=== PATIENT | male | born 1970 | race Caucasian/White ===

== ENCOUNTER 2024-04-09 14:44 | Emergency (ER) | payer OTHER, SELFPAY ==
[2024-04-09] VITALS (58 sets, daily range): BP systolic 125–219; BP diastolic 62–159; PULSE 62–148; RESP 16–20; TEMP 36.6; O2SAT 87–100; BMI 35.0
--- NOTE | 2024-04-09 15:25 | ED.CHESTPAIN ---
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 I do ask when this chest pain started and he says that it is intermittent and has been present for 2 years. He notes that seems a little worse today and shows need to be this left anterior chest. It does radiate into his neck. He is not excessively short of breath or nauseated. His blood pressure is elevated he states that often gets even higher. Currently he is on aspirin atorvastatin Plavix Related Data Home Medications ?Medication ?Instructions ?Recorded ?Confirmed albuterol sulfate 90 mcg/actuation 1 inh inhalation Q4-6H PRN 04/09/24 04/09/24 breath activated powder inhaler aripiprazole 10 mg tablet (Abilify) 10 mg PO DAILY 04/09/24 04/09/24 aspirin 81 mg capsule 81 mg PO DAILY 04/09/24 04/09/24 atorvastatin 80 mg tablet 80 mg PO DAILY 04/09/24 04/09/24 calcium carbonate PO 04/09/24 clopidogrel 75 mg tablet (Plavix) 75 mg PO DAILY 04/09/24 04/09/24 escitalopram oxalate 20 mg tablet 20 mg PO DAILY 04/09/24 04/09/24 (Lexapro) ezetimibe 10 mg tablet (Zetia) 10 mg PO DAILY 04/09/24 04/09/24 losartan 50 mg tablet (Cozaar) 50 mg PO DAILY 04/09/24 04/09/24 quetiapine 50 mg tablet (Seroquel) 50 mg PO ONCE HS 04/09/24 04/09/24 ranolazine 500 mg tablet,extended 500 mg PO BID 04/09/24 04/09/24 release,12 hr spironolactone 25 mg tablet 25 mg PO QDAY 04/09/24 04/09/24 Allergies Allergy/AdvReac Type Severity Reaction Status Date / Time No Known Drug Allergies Allergy Verified 04/09/24 14:58 Review of Systems Status of ROS Reports: 10 or more systems reviewed and unremarkable except as noted in History and below Const Denies: fever, chills or fatigue Eyes Denies: change in vision or blurry vision ENMT Reports: neck pain; Denies: throat pain, throat swelling, difficulty swallowing or nasal congestion Cardio Reports: chest pain; Denies: palpitations, edema, swelling of feet/ankles, lightheadedness or shortness of breath with exertion Resp Denies: shortness of breath or cough GI Reports: nausea; Denies: abdominal pain, vomiting or difficulty swallowing Musculo Reports: neck pain Integ/Breast Denies: rash Endo Denies: fatigue Allergy/Immuno Denies: throat swelling PFSH PFSH Social History Smoking Status: Never smoker Do you use any of these nicotine containing products: None How often do you have a drink containing alcohol: never How often do you have six or more drinks on one occasion: Never AUDIT-C Alcohol total score: 0 Non-prescribed substance use: denies use service: No Exam Narrative Exam Narrative: Johnny is alert and oriented. He is complaining of chest pain but does not appear to be in any acute distress and is very talkative and interactive. Her is EOM is full head is atraumatic. Neck is supple. Heart with a regular rate and rhythm. Lungs are with decreased breath sounds in the bases but no wheezing or crackles noted. Abdomen is soft nontender. He has a well-healed vertical incision over his sternum. Tattoos throughout body. Abdomen is without pulsating mass or tenderness. Lower extremities show no evidence of edema and there is no calf tenderness. Const Vital Signs, click to edit/add: Vital Signs - 24 hr 04/09/24 14:55 04/09/24 14:58 04/09/24 15:01 Temperature 97.9 F Pulse Rate 75 78 Pulse Rate [Pulse Oximeter] 100 Respiratory Rate 18 Blood Pressure 173/159 H Blood Pressure [Left Upper Arm] 173/159 H Pulse Oximetry 100 100 100 Oxygen Delivery Method Room Air 04/09/24 15:15 04/09/24 15:18 04/09/24 15:30 Temperature Pulse Rate 71 67 72 Pulse Rate [Pulse Oximeter] Respiratory Rate Blood Pressure 163/138 H Blood Pressure [Left Upper Arm] Pulse Oximetry 96 100 100 Oxygen Delivery Method 04/09/24 15:32 04/09/24 15:32 04/09/24 15:45 Temperature Pulse Rate 82 Pulse Rate [Pulse Oximeter] Respiratory Rate Blood Pressure 185/91 H 131/114 H Blood Pressure [Left Upper Arm] Pulse Oximetry 97 98 Oxygen Delivery Method 04/09/24 16:02 04/09/24 16:17 04/09/24 16:22 Temperature Pulse Rate 70 71 Pulse Rate [Pulse Oximeter] Respiratory Rate Blood Pressure 172/100 H 176/146 H Blood Pressure [Left Upper Arm] Pulse Oximetry 98 89 Oxygen Delivery Method 04/09/24 16:27 04/09/24 16:30 04/09/24 16:32 Temperature Pulse Rate 75 70 148 H Pulse Rate [Pulse Oximeter] Respiratory Rate Blood Pressure 169/105 H 159/90 H Blood Pressure [Left Upper Arm] Pulse Oximetry 93 97 92 Oxygen Delivery Method 04/09/24 16:45 04/09/24 17:00 04/09/24 17:02 Temperature Pulse Rate 72 82 82 Pulse Rate [Pulse Oximeter] Respiratory Rate Blood Pressure 172/155 H Blood Pressure [Left Upper Arm] Pulse Oximetry 99 91 98 Oxygen Delivery Method 04/09/24 17:15 04/09/24 17:30 04/09/24 17:31 Temperature Pulse Rate 73 66 65 Pulse Rate [Pulse Oximeter] Respiratory Rate Blood Pressure 184/130 H Blood Pressure [Left Upper Arm] Pulse Oximetry 96 97 91 Oxygen Delivery Method 04/09/24 17:32 04/09/24 17:48 04/09/24 17:52 Temperature Pulse Rate 63 70 Pulse Rate [Pulse Oximeter] Respiratory Rate Blood Pressure 187/100 H 199/123 H Blood Pressure [Left Upper Arm] Pulse Oximetry 99 96 Oxygen Delivery Method 04/09/24 18:00 04/09/24 18:02 04/09/24 18:03 Temperature Pulse Rate 73 76 74 Pulse Rate [Pulse Oximeter] Respiratory Rate Blood Pressure 197/142 H Blood Pressure [Left Upper Arm] Pulse Oximetry 92 93 98 Oxygen Delivery Method 04/09/24 18:16 04/09/24 18:30 04/09/24 18:33 Temperature Pulse Rate 66 66 62 Pulse Rate [Pulse Oximeter] Respiratory Rate Blood Pressure 219/143 H Blood Pressure [Left Upper Arm] Pulse Oximetry 98 99 100 Oxygen Delivery Method 04/09/24 18:45 04/09/24 19:00 04/09/24 19:03 Temperature Pulse Rate 65 63 70 Pulse Rate [Pulse Oximeter] Respiratory Rate Blood Pressure 183/125 H Blood Pressure [Left Upper Arm] Pulse Oximetry 100 98 94 Oxygen Delivery Method 04/09/24 19:04 04/09/24 19:15 04/09/24 19:17 Temperature Pulse Rate 72 69 Pulse Rate [Pulse Oximeter] Respiratory Rate Blood Pressure 168/127 H Blood Pressure [Left Upper Arm] Pulse Oximetry 95 95 94 Oxygen Delivery Method 04/09/24 19:30 04/09/24 19:32 04/09/24 19:34 Temperature Pulse Rate 71 77 Pulse Rate [Pulse Oximeter] Respiratory Rate Blood Pressure 180/135 H 148/95 H Blood Pressure [Left Upper Arm] Pulse Oximetry 94 93 Oxygen Delivery Method 04/09/24 19:45 04/09/24 19:46 04/09/24 19:58 Temperature Pulse Rate 80 77 83 Pulse Rate [Pulse Oximeter] Respiratory Rate Blood Pressure 125/62 142/93 H Blood Pressure [Left Upper Arm] Pulse Oximetry 87 L 91 96 Oxygen Delivery Method 04/09/24 20:00 04/09/24 20:02 04/09/24 20:03 Temperature Pulse Rate 74 82 Pulse Rate [Pulse Oximeter] Respiratory Rate Blood Pressure 137/119 H Blood Pressure [Left Upper Arm] Pulse Oximetry 93 97 97 Oxygen Delivery Method 04/09/24 20:15 04/09/24 20:17 04/09/24 20:20 Temperature Pulse Rate 67 73 72 Pulse Rate [Pulse Oximeter] Respiratory Rate 16 Blood Pressure 132/71 135/110 H Blood Pressure [Left Upper Arm] Pulse Oximetry 98 96 92 Oxygen Delivery Method Room Air 04/09/24 20:30 04/09/24 20:31 04/09/24 20:45 Temperature Pulse Rate 78 73 71 Pulse Rate [Pulse Oximeter] Respiratory Rate 20 Blood Pressure 136/82 Blood Pressure [Left Upper Arm] Pulse Oximetry 97 96 97 Oxygen Delivery Method Room Air 04/09/24 20:48 04/09/24 20:52 04/09/24 21:00 Temperature Pulse Rate 76 73 80 Pulse Rate [Pulse Oximeter] Respiratory Rate Blood Pressure 146/123 H 149/87 H Blood Pressure [Left Upper Arm] Pulse Oximetry 91 97 97 Oxygen Delivery Method 04/09/24 21:02 04/09/24 21:15 04/09/24 21:17 Temperature Pulse Rate 73 71 70 Pulse Rate [Pulse Oximeter] Respiratory Rate 20 Blood Pressure 146/90 H 157/101 H Blood Pressure [Left Upper Arm] Pulse Oximetry 97 98 97 Oxygen Delivery Method Room Air 04/09/24 21:31 04/09/24 21:32 Temperature Pulse Rate 75 74 Pulse Rate [Pulse Oximeter] Respiratory Rate Blood Pressure 179/100 H Blood Pressure [Left Upper Arm] Pulse Oximetry 95 97 Oxygen Delivery Method Documenting provider has reviewed patient's vital signs: yes Course Vital Signs Vital signs: Initial Vital Signs Temperature 97.9 F 04/09/24 14:55 Temperature Source Temporal Artery Scan 04/09/24 14:55 Pulse Rate 100 04/09/24 14:55 Respiratory Rate 18 04/09/24 14:55 Blood Pressure 173/159 H 04/09/24 14:55 Blood Pressure Mean 163 H 04/09/24 14:55 Blood Pressure Position Sitting 04/09/24 14:55 Pulse Oximetry 100 04/09/24 14:55 Oxygen Delivery Method Room Air 04/09/24 14:55 Vital Signs Temperature 97.9 F 04/09/24 14:55 Pulse Rate 100 04/09/24 14:55 Respiratory Rate 18 04/09/24 14:55 Blood Pressure 173/159 H 04/09/24 14:55 Pulse Oximetry 100 04/09/24 14:55 Oxygen Delivery Method Room Air 04/09/24 14:55 Temperature 97.9 F 04/09/24 14:55 Pulse Rate 74 04/09/24 21:32 Respiratory Rate 20 04/09/24 21:17 Blood Pressure 179/100 H 04/09/24 21:32 Pulse Oximetry 97 04/09/24 21:32 Oxygen Delivery Method Room Air 04/09/24 21:17 Medications Administered Medications: Discontinued Medications Generic Name Dose Route Start Last Admin Trade Name Freq PRN Reason Stop Dose Admin Acetaminophen 1,000 mg 04/09/24 17:08 04/09/24 17:25 Acetaminophen 500 Mg Tablet PO 04/09/24 17:09 1,000 mg ONCE ONE Administration Amlodipine Besylate 5 mg 04/09/24 21:30 04/09/24 21:42 Amlodipine 5 Mg Tablet PO 04/09/24 21:31 5 mg ONCE ONE Administration Aspirin 324 mg 04/09/24 22:41 04/09/24 22:45 Aspirin 81 Mg Tablet Ec PO 04/09/24 22:42 324 mg ONCE ONE Administration Carvedilol 12.5 mg 04/09/24 20:54 04/09/24 21:20 Carvedilol 25 Mg Tablet PO 04/09/24 20:55 12.5 mg ONCE ONE Administration Nicardipine/Sodium Chloride 10 mg in 100 mls @ 50 mls/hr 04/09/24 18:04 04/09/24 19:45 Cardene Iv IV 0 mls/hr DIRECTED CAROLANN Infusion Protocol Metoprolol Tartrate 2.5 mg 04/09/24 17:08 04/09/24 17:25 Metoprolol Tartrate 1 Mg/Ml Inj IVP 04/09/24 17:09 2.5 mg ONCE ONE Administration Nitroglycerin 0.4 mg 04/09/24 15:32 04/09/24 16:21 Nitroglycerin 0.4 Mg Tab.Subl SUBLINGUAL 04/09/24 15:33 0.4 mg ONCE ONE Administration MDM - Chest Pain MDM Narrative Medical decision making narrative: 1. Chest pain-patient arrived with chest pain that he says has been intermittent ever since he had his bypass 2 years ago. Today we initially tried nitro to bring blood pressures down. It did only modestly and pain was only relieved to a 9/10. Patient was then given Lopressor 2.5 mg and while pulse was brought down to the 60s only modest improvement was noted in blood pressure. Patient had no visual changes abdominal pain or vomiting. He stated that his doctors had told him in the past that his chest pain is from elevated blood pressure. I had the pleasure of speaking with a financial reporting accountant from [facility] in [place]. He was able to tell me that Johnny had a negative nuclear stress test in February. Johnny did not remember this. At this time did agree with my plan to keep Johnny overnight with echocardiogram in the morning and to control blood pressures. We did start nicardipine drip and the blood pressures were brought down and ultimately we turned the nicardipine off because his blood pressure dropped to 120 systolic. During this time 2 sets of negative cardiac enzymes were resulted and EKG did not show any acute ST or T-wave changes. Because of the continued pain we did a CT of the chest which was negative for any aortic pathology PE or pneumonia. Even with blood pressure lower patient did complain of chest pain although the rating of the pain did not seem congruent with his activity. Frequently he was walking around his room, was very pleasant with staff and interactive. We did allow him to eat. Drug screen was negative. I did a final troponin 6 hours after patient arrival and this again was negative. Patient had requested morphine or Reddick from the nursing staff but I am declining this at this time. We do not know what we are treating and patient does not have any injury, abnormality on CT, bump in his troponin, or abnormal EKG. I spoke with Cardiology from [facility] in regards to this patient requesting appropriate blood control management. They do suggest the addition of amlodipine 5 mg daily. 1st dose is given here in the ED. I do talk to the patient about this medication. I have written a prescription for daily amlodipine but patient is certain that he already has this medication in his vehicle. The Cardiology at [facility] also agrees patient should stay overnight with echocardiogram and continue monitoring. However Johnny is adamant that he needs to go. He would not be able to stay past the data center solutions architect hours. At this point we have already had 3 cardiac enzymes that are negative, reassuring EKG. 2. Hypertension-well blood pressure improved with the use of nicardipine it did start increasing again during his stay. It should be noted that there are many abnormal blood pressure readings while he was here. Multiple times I was notified of blood pressure readings that were high and when we had patient lie down with the correct blood pressure cuff and positioning the blood pressures were reassuring. Prior to discharge blood pressure did increase to 180/100. I again asked the patient to stay. He did receive full aspirin here in the emergency room during the evening. He also received his regular dose of carvedilol 12.5 mg p.o. as well as the additional amlodipine. 3. Tobacco use-advised to abstain. 4. Lung nodule-advised to follow-up with outpatient CT in 6 months. 4. Disposition-at this time patient has signed AMA. He does appear to be able to make his own decisions, is not under the influence. He does appear to understand that departing could results in , heart attack, stroke. I advised him not to drive given this situation and this discussion is held in front of a nurse who has witnessed. He is advised to can continue all of his current medications plus the addition of amlodipine daily. He is advised to seek medical attention for worsening symptoms. Lab Data Attestation: I reviewed the patient's lab results. Labs: Lab Results 04/09/24 04/09/24 04/09/24 Range/Units 15:32 16:17 17:50 WBC 9.04 (4.50-11.00) K/uL RBC 5.18 (4.30-5.90) m/uL Hgb 14.3 (13.5-17.5) gm/dL Hct 44.0 (37.0-53.0) % MCV 85 (80-100) fL MCH 28 (26-34) pg MCHC 33 (32-36) gm/dL RDW Coeff of Juliet 13.1 (11.5-15.5) % Plt Count 269 (140-440) K/uL Neut % (Auto) 60.8 (42.0-72.0) % Lymph % (Auto) 26.1 (20-44) % [place] % (Auto) 9.1 (0.0-11.0) % Eos % (Auto) 3.1 (0.0-7.0) % Baso % (Auto) 0.3 (0.0-3.0) % Neut # (Auto) 5.50 (1.7-7.0) K/uL Lymph # (Auto) 2.36 (0.90-2.90) K/uL [place] # (Auto) 0.80 (0.00-0.90) K/UL Eos # (Auto) 0.28 (0.00-0.50) K/uL Baso # (Auto) 0.03 (0.00-0.30) K/uL Abs Immat Gran (auto) 0.05 (0.00-0.30) K/uL Imm/Tot Granulo (auto) 0.6 % Sodium 141 (135-149) mmol/L Potassium 3.5 L (3.6-5.1) mmol/L Chloride 109 (96-114) mmol/L Carbon Dioxide 27 (20-32) mmol/L Anion Gap 5 L (7-15) mEq/L BUN 14 (7-30) mg/dL Creatinine 0.7 (0.5-1.5) mg/dL Estimated Creat Clear 123.12 Estimated GFR 109 ml/min Glucose 91 (60-115) mg/dL Calcium 9.1 (8.4-10.6) mg/dL Total Bilirubin 0.3 (0.1-1.5) mg/dL AST 24 (12-35) U/L ALT 38 (4-50) U/L Alkaline Phosphatase 85 (40-150) U/L C-Reactive Protein 0.7 (0.5-1.0) mg/dL Total Protein 7.4 (6.0-8.3) g/dL Albumin 4.1 (3.3-5.0) g/dL Urine Color Yellow (Yellow) Urine Appearance Clear (Clear) Urine pH 5.5 (5.0-8.5) Ur Specific [place] >= 1.030 (1.000-1.030) Urine Protein Negative (Negative) Urine Glucose (UA) Negative (Negative) Urine Ketones Negative (Negative) Urine Blood Negative (Negative) Urine Nitrite Negative (Negative) Urine Bilirubin Negative (Negative) Urine Urobilinogen 0.2 (0.2-1.0) Ur Leukocyte Esterase Negative (Negative) Urine RBC 0-2 (0-2) Urine WBC 0-2 (0-5) Ur Squamous Epith Cells None (None-Few) Urine Bacteria None (None) Urine Opiates Screen Negative (Negative) Ur Oxycodone Screen Negative (Negative) Urine Methadone Screen Negative (Negative) Ur Barbiturates Screen Negative (Negative) U Tricyclic Antidepress POSITIVE A (Negative) Ur Phencyclidine Scrn Negative (Negative) Ur Amphetamines Screen Negative (Negative) U Methamphetamines Scrn Negative (Negative) U Benzodiazepines Scrn Negative (Negative) Urine Cocaine Screen Negative (Negative) U Marijuana (THC) Screen Negative (Negative) Ur Drug Screen Comment See Note POC Troponin I 0.01 (0.01-0.04) ng/ml 04/09/24 04/09/24 Range/Units 19:15 21:30 WBC (4.50-11.00) K/uL RBC (4.30-5.90) m/uL Hgb (13.5-17.5) gm/dL Hct (37.0-53.0) % MCV (80-100) fL MCH (26-34) pg MCHC (32-36) gm/dL RDW Coeff of Juliet (11.5-15.5) % Plt Count (140-440) K/uL Neut % (Auto) (42.0-72.0) % Lymph % (Auto) (20-44) % [place] % (Auto) (0.0-11.0) % Eos % (Auto) (0.0-7.0) % Baso % (Auto) (0.0-3.0) % Neut # (Auto) (1.7-7.0) K/uL Lymph # (Auto) (0.90-2.90) K/uL [place] # (Auto) (0.00-0.90) K/UL Eos # (Auto) (0.00-0.50) K/uL Baso # (Auto) (0.00-0.30) K/uL Abs Immat Gran (auto) (0.00-0.30) K/uL Imm/Tot Granulo (auto) % Sodium (135-149) mmol/L Potassium (3.6-5.1) mmol/L Chloride (96-114) mmol/L Carbon Dioxide (20-32) mmol/L Anion Gap (7-15) mEq/L BUN (7-30) mg/dL Creatinine (0.5-1.5) mg/dL Estimated Creat Clear Estimated GFR ml/min Glucose (60-115) mg/dL Calcium (8.4-10.6) mg/dL Total Bilirubin (0.1-1.5) mg/dL AST (12-35) U/L ALT (4-50) U/L Alkaline Phosphatase (40-150) U/L C-Reactive Protein (0.5-1.0) mg/dL Total Protein (6.0-8.3) g/dL Albumin (3.3-5.0) g/dL Urine Color (Yellow) Urine Appearance (Clear) Urine pH (5.0-8.5) Ur Specific [place] (1.000-1.030) Urine Protein (Negative) Urine Glucose (UA) (Negative) Urine Ketones (Negative) Urine Blood (Negative) Urine Nitrite (Negative) Urine Bilirubin (Negative) Urine Urobilinogen (0.2-1.0) Ur Leukocyte Esterase (Negative) Urine RBC (0-2) Urine WBC (0-5) Ur Squamous Epith Cells (None-Few) Urine Bacteria (None) Urine Opiates Screen (Negative) Ur Oxycodone Screen (Negative) Urine Methadone Screen (Negative) Ur Barbiturates Screen (Negative) U Tricyclic Antidepress (Negative) Ur Phencyclidine Scrn (Negative) Ur Amphetamines Screen (Negative) U Methamphetamines Scrn (Negative) U Benzodiazepines Scrn (Negative) Urine Cocaine Screen (Negative) U Marijuana (THC) Screen (Negative) Ur Drug Screen Comment POC Troponin I 0.00 L 0.00 L (0.01-0.04) ng/ml Imaging Data Chest x-ray: Attestation: I have reviewed the pertinent imaging results. My impression: No evidence of widened mediastinum or infiltrate Radiologist's impression: Cardiovascular and mediastinum: Postop changes to the mediastinum. Lungs and pleural spaces: Incidental calcified granuloma in the right perihilar lung. No sign of infiltrate or mass. No sign of pleural effusion. No pneumothorax. Bones and soft tissues: Spurring at the acromioclavicular joints. IMPRESSION: No acute findings. CT scan - chest: Attestation: I have reviewed the pertinent imaging results. Radiologist's impression: Upper limits of normal intrathoracic lymph nodes are present. No adrenal nodule. No splenomegaly. Vascular calcifications. No calcified gallstones. No pulmonary embolism. 7 millimeter nodule adjacent to the right minor fissure, 5. Postop changes CABG. Calcified nodule incidentally noted within the right upper lobe. Additional noncalcified nodule right lower lobe measures 4.2 millimeters, . Calcified right hilar lymph nodes representing sequela of granulomatous disease. IMPRESSION: No evidence of pulmonary thromboembolism. Right-sided pulmonary nodules measuring up to [address] chest follow-up in 6 months recommended ECG Data Interpretation: EKG 1. By my read shows sinus rhythm with sinus arrhythmia. He does have suggestion of Q-waves noted in V1 V2 that appear to be chronic. I do not note any other ST or T-wave changes QT and KS intervals within normal limits EKG 2. By my read shows sinus rhythm with arrhythmia at a rate of 77. I do not note any changes from previous EKG. Discharge Plan Discharge Clinical Impression: Chest pain Qualifiers: Chest pain type: unspecified Qualified Code(s): R07.9 - Chest pain, unspecified Hypertension Qualifiers: Hypertension type: unspecified Qualified Code(s): I10 - Essential (primary) hypertension Patient Disposition: Left Against Medical Advice Condition: Improved Prescriptions: No Action albuterol sulfate 90 mcg/actuation aerosol powdr breath activated 1 inh inhalation Q4-6H PRN aripiprazole [Abilify] 10 mg tablet 10 mg PO DAILY aspirin 81 mg capsule 81 mg PO DAILY atorvastatin 80 mg tablet 80 mg PO DAILY calcium carbonate [Tums Extra Strength Smoothies] PO clopidogrel [Plavix] 75 mg tablet 75 mg PO DAILY escitalopram oxalate [Lexapro] 20 mg tablet 20 mg PO DAILY ezetimibe [Zetia] 10 mg tablet 10 mg PO DAILY losartan [Cozaar] 50 mg tablet 50 mg PO DAILY quetiapine [Seroquel] 50 mg tablet 50 mg PO ONCE HS Rx Instructions: administer on day 1 of therapy ranolazine 500 mg tablet extended release 12 hr 500 mg PO BID spironolactone 25 mg tablet 25 mg PO QDAY Follow Up/Referrals: Provider,Not a Local [Primary Care Provider] - Stand Alone Forms: [employer] Info Instructions
--- NOTE | 2024-04-09 15:32 | CRLHL7_ITS ---
For Patients: As a result of the Cures Act, medical imaging exams and procedure reports are released immediately into your electronic medical record. You may view this report before your referring provider. If you have questions, please contact your health care provider. INDICATION: Chest pain TECHNIQUE: Chest 1 view COMPARISON: None FINDINGS: Cardiovascular and mediastinum: Postop changes to the mediastinum. Lungs and pleural spaces: Incidental calcified granuloma in the right perihilar lung. No sign of infiltrate or mass. No sign of pleural effusion. No pneumothorax. Bones and soft tissues: Spurring at the acromioclavicular joints. IMPRESSION: No acute findings. Dictated by Ernesto Goyal MD @ 04/09/2024 4:51:23 PM (Electronically Signed)
--- OUTSIDE RECORDS SUMMARY | 2024-04-09 16:14 | XMS_ITS ---
Author Organization Unknown Address [address], [place] [id number] Phone Care Team Providers [employer] Executive Director Name Role Phone Unavailable [employer] Unavailable MAXIMUS Bajwa MD Attending Unavailable LARA HERNÁNDEZ MD Mr Water Resource Agent Unavailable LEENA ROSADO MD Mr Water Resource Agent Unavailable VORAPUNPISUIT, RATTAPOL DO ER Unava ilable ONI ESPOSITO APN Hospitalist Unavailable NO PCP PRESENT Primary Unavailable Results CMP - Collect Date/Time: 06/2023 06:00 [facility] ID: [id number] [address] [facility] [place], [id number] LOINC: 89850-9 Test Value Unit Reference Range Code Code System Flag GLUCOSE 94 mg/dL L=74 H=106 2339-0 LOINC BUN 16 mg/dL L=9 H=20 6299-2 LOINC CREATININE 0.8 mg/dL L=0.6 H=1.2 2160-0 LOINC SODIUM 137 mEq/L L=137 H=145 2951-2 LOINC POTASSIUM 4.0 mEq/L L=3.5 H=5.1 2823-3 LOINC CHLORIDE 109 mEq/L L=98 H=107 H CO2 25 mEq/L L=22 H=30 2028-9 LOINC BUN/CREAT 20 L=6 H=25 ANION GAP 3 L=5 H=15 L CALCIUM 8.4 mg/dL L=8.4 H=10.2 41648-0 LOINC TOTAL PROTEIN 6.6 g/dL L=6.3 H=8.2 2885-2 LOINC ALBUMIN 3.7 g/dL L=3.5 H=5.0 GLOBULIN 3 g/dL L=2 H=4 A/G RATIO 1.2 L=0.8 H=2.0 SGOT/AST 33 IU/L L=15 H=46 1920-8 LOINC SGPT/ALTV 30 IU/L L=0 H=50 1742-6 LOINC ALKALINE PHOS 80 IU/L L=38 H=126 6768-6 LOINC TOTAL BILI 0.4 mg/dL L=0.2 H=1.3 1975-2 LOINC AGE 52 yrs NON-AA GFR 101 mL/min AFR AMER GFR 122 mL/min OSMOLALITY 285 mOsm/K L=275 H=295 CBC COMPLETE BLOOD COUNT SYS - Collect Date/Time: 08/31/2023 06:00 [facility] ID: [id number] [address], [facility] [place], [id number] LOINC: 74706-3 Test Value Unit Reference Range Code Code System Flag WBC 8.6 K/uL L=3.5 H=10.3 6690-2 LOINC RBC 5.10 M/uL L=4.20 H=6.20 789-8 LOINC HEMOGLOBIN 14.2 g/dL L=13.5 H=17.1 718-7 LOINC HEMATOCRIT 43.1 % L=39.0 H=52.0 4544-3 LOINC MCV 84.5 fL L=80.0 H=100 MCH 27.8 pg L=26.0 H=34.4 785-6 LOINC MCHC 32.9 g/dL L=31.8 H=36.3 786-4 LOINC RDW 12.4 % L=10.8 H=14.9 788-0 LOINC PLATELETS 252 K/uL L=150 H=500 777-3 LOINC MPV 9.3 fL L=8.1 H=12.4 %NEUT 59.3 % L=38.3 H=69.0 770-8 LOINC %LYMPH 25.7 % L=17.5 H=47.9 %MONO 11.1 % L=2.0 H=15.0 5905-5 LOINC %EOS 3.2 % L=0.0 H=5.0 %BASO 0.2 % L=0.0 H=3.0 %IG 0.50 % L=0.00 H=1.00 #NEUT 5.07 K/uL L=1.20 H=5.30 751-8 LOINC #LYMPH 2.20 K/uL L=0.80 H=2.70 731-0 LOINC #MONO 0.95 K/uL L=0.10 H=0.60 742-7 LOINC H #EOS 0.27 K/uL L=0.00 H=0.30 #BASO 0.02 K/uL L=0.00 H=0.10 704-7 LOINC #IG 0.04 L=0.00 H=1.00 MANUAL DIFF NOT INDICATED RBC MORPH NOT INDICATED SMEAR REVIEW NOT INDICATED CMP - Collect Date/Time: 05/2023 03:15 [facility] ID: [id number] [address], [facility], [phone] LOINC: 85083-7 Test Value Unit Reference Range Code Code System Flag GLUCOSE 119 mg/dL L=74 H=106 2339-0 LOINC H BUN 16 mg/dL L=9 H=20 6299-2 LOINC CREATININE 1.0 mg/dL L=0.6 H=1.2 2160-0 LOINC SODIUM 138 mEq/L L=137 H=145 2951-2 LOINC POTASSIUM 4.3 mEq/L L=3.5 H=5.1 2823-3 LOINC CHLORIDE 108 mEq/L L=98 H=107 H CO2 28 mEq/L L=22 H=30 2028-9 LOINC BUN/CREAT 16 L=6 H=25 ANION GAP 2 L=5 H=15 L CALCIUM 8.2 mg/dL L=8.4 H=10.2 92977-9 LOINC L TOTAL PROTEIN 6.2 g/dL L=6.3 H=8.2 2885-2 LOINC L ALBUMIN 3.2 g/dL L=3.5 H=5.0 L GLOBULIN 3 g/dL L=2 H=4 A/G RATIO 1.1 L=0.8 H=2.0 SGOT/AST 30 IU/L L=15 H=46 1920-8 LOINC SGPT/ALTV 31 IU/L L=0 H=50 1742-6 LOINC ALKALINE PHOS 72 IU/L L=38 H=126 6768-6 LOINC TOTAL BILI 0.5 mg/dL L=0.2 H=1.3 1975-2 LOINC AGE 52 yrs NON-AA GFR 78 mL/min AFR AMER GFR 94 mL/min OSMOLALITY 288 mOsm/K L=275 H=295 CBC COMPLETE BLOOD COUNT SYS - Collect Date/Time: 08/30/2023 03:15 [facility] ID: [id number] [address], [facility] [place], [phone] LOINC: 95583-0 Test Value Unit Reference Range Code Code System Flag WBC 9.5 K/uL L=3.5 H=10.3 6690-2 LOINC RBC 4.92 M/uL L=4.20 H=6.20 789-8 LOINC HEMOGLOBIN 13.8 g/dL L=13.5 H=17.1 718-7 LOINC HEMATOCRIT 42.5 % L=39.0 H=52.0 4544-3 LOINC MCV 86.4 fL L=80.0 H=100 MCH 28.0 pg L=26.0 H=34.4 785-6 LOINC MCHC 32.5 g/dL L=31.8 H=36.3 786-4 LOINC RDW 12.8 % L=10.8 H=14.9 788-0 LOINC PLATELETS 248 K/uL L=150 H=500 777-3 LOINC MPV 9.5 fL L=8.1 H=12.4 %NEUT 61.7 % L=38.3 H=69.0 770-8 LOINC %LYMPH 25.9 % L=17.5 H=47.9 %MONO 8.5 % L=2.0 H=15.0 5905-5 LOINC %EOS 3.0 % L=0.0 H=5.0 %BASO 0.5 % L=0.0 H=3.0 %IG 0.40 % L=0.00 H=1.00 #NEUT 5.84 K/uL L=1.20 H=5.30 751-8 LOINC H #LYMPH 2.46 K/uL L=0.80 H=2.70 731-0 LOINC #MONO 0.81 K/uL L=0.10 H=0.60 742-7 LOINC H #EOS 0.28 K/uL L=0.00 H=0.30 #BASO 0.05 K/uL L=0.00 H=0.10 704-7 LOINC #IG 0.04 L=0.00 H=1.00 MANUAL DIFF NOT INDICATED RBC MORPH NOT INDICATED SMEAR REVIEW NOT INDICATED TROPONIN VITROS - Collect Da te/Time: 08/30/2023 03:15 [facility] ID: [id number] [address] [facility] [place], [id number] LOINC: Test Value Unit Reference Range Code Code System Flag TROPONIN VIT < 0.012 ng/mL L=0.012 H=0.034 CBC COMPLETE BLOOD COUNT SYS - Collect Date/Time: 08/29/2023 03:30 [facility] ID: [id number] [address] [facility] , [place], [phone] LOINC: 39041-0 Test Value Unit Reference Range Code Code System Flag WBC 10.2 K/uL L=3.5 H=10.3 6690-2 LOINC RBC 5.74 M/uL L=4.20 H=6.20 789-8 LOINC HEMOGLOBIN 16.0 g/dL L=13.5 H=17.1 718-7 LOINC HEMATOCRIT 48.8 % L=39.0 H=52.0 4544-3 LOINC MCV 85.0 fL L=80.0 H=100 MCH 27.9 pg L=26.0 H=34.4 785-6 LOINC MCHC 32.8 g/dL L=31.8 H=36.3 786-4 LOINC RDW 13.0 % L=10.8 H=14.9 788-0 LOINC PLATELETS 256 K/uL L=150 H=500 777-3 LOINC MPV 10.8 fL L=8.1 H=12.4 %NEUT 54.5 % L=38.3 H=69.0 770-8 LOINC %LYMPH 32.4 % L=17.5 H=47.9 %MONO 9.3 % L=2.0 H=15.0 5905-5 LOINC %EOS 3.0 % L=0.0 H=5.0 %BASO 0.5 % L=0.0 H=3.0 %IG 0.30 % L=0.00 H=1.00 #NEUT 5.58 K/uL L=1.20 H=5.30 751-8 LOINC H #LYMPH 3.31 K/uL L=0.80 H=2.70 731-0 LOINC H #MONO 0.95 K/uL L=0.10 H=0.60 742-7 LOINC H #EOS 0.31 K/uL L=0.00 H=0.30 H #BASO 0.05 K/uL L=0.00 H=0.10 704-7 LOINC #IG 0.03 L=0.00 H=1.00 MANUAL DIFF NOT INDICATED RBC MORPH NOT INDICATED SMEAR REVIEW NOT INDICATED CMP - Collect Date/Time: 04/2023 03:30 [facility] ID: [id number] [address], [place] , [place], [id number] LOINC: 74238-4 Test Value Unit Reference Range Code Code System Flag GLUCOSE 91 mg/dL L=74 H=106 2339-0 LOINC BUN 19 mg/dL L=9 H=20 6299-2 LOINC CREATININE 1.1 mg/dL L=0.6 H=1.2 2160-0 LOINC SODIUM 141 mEq/L L=137 H=145 2951-2 LOINC POTASSIUM 4.0 mEq/L L=3.5 H=5.1 2823-3 LOINC CHLORIDE 107 mEq/L L=98 H=107 CO2 29 mEq/L L=22 H=30 8-9 LOINC BUN/CREAT 17 L=6 H=25 ANION GAP 5 L=5 H=15 CALCIUM 8.6 mg/dL L=8.4 H=10.2 99443-2 LOINC TOTAL PROTEIN 7.9 g/dL L=6.3 H=8.2 2885-2 LOINC ALBUMIN 4.1 g/dL L=3.5 H=5.0 GLOBULIN 4 g/dL L=2 H=4 A/G RATIO 1.0 L=0.8 H=2.0 SGOT/AST 40 IU/L L=15 H=46 1920-8 LOINC SGPT/ALTV 40 IU/L L=0 H=50 1742-6 LOINC ALKALINE PHOS 100 IU/L L=38 H=126 6768-6 LOINC TOTAL BILI 0.7 mg/dL L=0.2 H=1.3 1975-2 LOINC AGE 52 yrs NON-AA GFR 70 mL/min AFR AMER GFR 84 mL/min OSMOLALITY 294 mOsm/K L=275 H=295 TROPONIN VITROS - Collect Da te/Time: 08/29/2023 02:27 [facility] ID: [id number] [address], [place], [place], [id number] LOINC: Test Value Unit Reference Range Code Code System Flag TROPONIN VIT < 0.012 ng/mL L=0.012 H=0.034 TROPONIN VITROS - Collect Da te/Time: 08/28/2023 23:22 [facility] ID: [id number] [address], [place], [place], [id number] LOINC: Test Value Unit Reference Range Code Code System Flag TROPONIN VIT < 0.012 ng/mL L=0.012 H=0.034 RAPID COVID AG - Collect Reed e/Time: 08/28/2023 18:09 [facility] ID: [id number] [address], [place], [place], [id number] LOINC: 18480-3 Test Value Unit Reference Range Code Code System Flag SARS ANTIGEN NEGATIVE 67262-3 LOINC INFLUENZA A/B - Collect Date /Time: 08/28/2023 18:09 [facility] ID: [id number] [address], [place], [place], [id number] LOINC: Test Value Unit Reference Range Code Code System Flag INFLUENZA A NEGATIVE NORMAL: NEGATIVE INFLUENZA B NEGATIVE NORMAL: NEGATIVE CBC COMPLETE BLOOD COUNT SYS - Collect Date/Time: 08/28/2023 17:55 [facility] ID: [id number] [address], [place], [place], [id number] LOINC: 52187-6 Test Value Unit Reference Range Code Code System Flag WBC 9.7 K/uL L=3.5 H=10.3 6690-2 LOINC RBC 5.67 M/uL L=4.20 H=6.20 789-8 LOINC HEMOGLOBIN 15.9 g/dL L=13.5 H=17.1 718-7 LOINC HEMATOCRIT 47.4 % L=39.0 H=52.0 4544-3 LOINC MCV 83.6 fL L=80.0 H=100 MCH 28.0 pg L=26.0 H=34.4 785-6 LOINC MCHC 33.5 g/dL L=31.8 H=36.3 786-4 LOINC RDW 12.7 % L=10.8 H=14.9 788-0 LOINC PLATELETS 282 K/uL L=150 H=500 777-3 LOINC MPV 9.2 fL L=8.1 H=12.4 %NEUT 64.0 % L=38.3 H=69.0 770-8 LOINC %LYMPH 23.5 % L=17.5 H=47.9 %MONO 9.3 % L=2.0 H=15.0 5905-5 LOINC %EOS 2.4 % L=0.0 H=5.0 %BASO 0.4 % L=0.0 H=3.0 %IG 0.40 % L=0.00 H=1.00 #NEUT 6.18 K/uL L=1.20 H=5.30 751-8 LOINC H #LYMPH 2.27 K/uL L=0.80 H=2.70 731-0 LOINC #MONO 0.90 K/uL L=0.10 H=0.60 742-7 LOINC H #EOS 0.23 K/uL L=0.00 H=0.30 #BASO 0.04 K/uL L=0.00 H=0.10 704-7 LOINC #IG 0.04 L=0.00 H=1.00 MANUAL DIFF NOT INDICATED RBC MORPH NOT INDICATED SMEAR REVIEW NOT INDICATED MAGNESIUM - Collect Date/Chris e: 08/28/2023 17:55 [facility] ID: [id number] [address], [place], [place], [id number] LOINC: 63493-8 Test Value Unit Reference Range Code Code System Flag MAGNESIUM 2.2 mg/dL L=1.6 H=2.3 70690-6 LOINC TROPONIN VITROS - Collect Da te/Time: 08/28/2023 17:55 [facility] ID: [id number] [address], [place], [place], [id number] LOINC: Test Value Unit Reference Range Code Code System Flag TROPONIN VIT < 0.012 ng/mL L=0.012 H=0.034 D DIMER - Collect Date/Time: 08/28/2023 17:55 [facility] ID: [id number] [address], [place], [place], [id number] LOINC: Test Value Unit Reference Range Code Code System Flag D-DIMER QUANT 465 FEU ng/mL L=0 H=500 BNP B TYPE NATRIURETIC PEPTI DE - Collect Date/Time: 08/28/2023 17:55 [facility] ID: [id number] [address], [place], [place], [id number] LOINC: 10214-7 Test Value Unit Reference Range Code Code System Flag NT-PRO BNP 104 L=0 H=301 PTT PARTIAL THROMBOPLASTIN T ESTEPHANIE - Collect Date/Time: 08/28/2023 17:55 [facility] ID: [id number] [address], [place], [place], [address] LOINC: 04469-3 Test Value Unit Reference Range Code Code System Flag PTT 70.000 Secs L=25.100 H=36.500 3173-2 LOINC H PT PROTHROMBIN TIME INR - Co llect Date/Time: 08/28/2023 17:55 [facility] ID: [id number] [address], [place], [place], [address] LOINC: Test Value Unit Reference Range Code Code System Flag PT 12.200 secs L=9.400 H=12.500 5902-2 LOINC INR 1.04 L=0.00 H=3.50 09906-4 LOINC LIPASE - Collect Date/Time: 08/28/2023 17:55 [facility] ID: [id number] [address], [place], [place], [address] LOINC: 3040-3 Test Value Unit Reference Range Code Code System Flag LIPASE 70 IU/L L=23 H=300 3040-3 LOINC CMP - Collect Date/Time: 03/2023 17:55 [facility] ID: [id number] [address], [place], [place], [address] LOINC: 26437-2 Test Value Unit Reference Range Code Code System Flag GLUCOSE 116 mg/dL L=74 H=106 2339-0 LOINC H BUN 16 mg/dL L=9 H=20 6299-2 LOINC CREATININE 1.0 mg/dL L=0.6 H=1.2 2160-0 LOINC SODIUM 141 mEq/L L=137 H=145 2951-2 LOINC POTASSIUM 4.0 mEq/L L=3.5 H=5.1 2823-3 LOINC CHLORIDE 110 mEq/L L=98 H=107 H CO2 26 mEq/L L=22 H=30 8-9 LOINC BUN/CREAT 16 L=6 H=25 ANION GAP 5 L=5 H=15 CALCIUM 9.0 mg/dL L=8.4 H=10.2 21554-7 LOINC TOTAL PROTEIN 7.8 g/dL L=6.3 H=8.2 2885-2 LOINC ALBUMIN 4.1 g/dL L=3.5 H=5.0 GLOBULIN 4 g/dL L=2 H=4 A/G RATIO 1.0 L=0.8 H=2.0 SGOT/AST 40 IU/L L=15 H=46 1920-8 LOINC SGPT/ALTV 39 IU/L L=0 H=50 1742-6 LOINC ALKALINE PHOS 90 IU/L L=38 H=126 6768-6 LOINC TOTAL BILI 0.6 mg/dL L=0.2 H=1.3 1974- LOINC AGE 52 yrs NON-AA GFR 78 mL/min AFR AMER GFR 94 mL/min OSMOLALITY 294 mOsm/K L=275 H=295 CT BRAIN WO CONTRAST - Compl eted: 08/28/2023 18:24 LOINC: \TM00\\12PI\\DRAo\\BM09\ \MRLo\ [facility] [address] [place] [address] ---------NAME--------- NUMBER SEX AGE ADMIT DISC. XRAY# F/C TYPE HERNANDEZ ALEXANDER [id number] M 52 08/28/23 [id number] E/R DATE OF : 1970 M/R# [id number] PH#: [phone] RM TRIAG \MRHx\ LOCATION: TRANSCRIBED: 08/28/23 18:35 CT BRAIN WO CONTRAST [id number] COMPLETED:08/28/23 18:24 000 83402 {REASON FOR PROCEDURE: Dizziness PHYSICIAN: CEM RADIOLOGY REPORT EXAM DESCRIPTION: CT BRAIN WO CONTRAST CLINICAL HISTORY: 52 years Male Dizziness COMPARISON: None Technique: Contiguous axial images of the brain were obtained without the administration of intravenous contrast.This exam was performed according to our departmental dose-optimization program which includes use of Automated Exposure Control, adjustment of the mA and/or kV according to patient size and/or use of iterative reconstruction technique. DLP: 778 mGy*cm FINDINGS: Brain: No acute intracranial hemorrhage. No extra-axial collection. No mass effect or herniation. Mild prominence of the sulci and cisterns. Confluent periventricular and subcortical white matter hypodensity is noted. Vascular calcifications. Ventricles: Within normal limits in size. Globes and orbits: No acute abnormality. Bones: No acute osseous finding Paranasal sinuses: Paranasal sinuses are clear. Mastoid air cells: Well pneumatized. Soft tissues: Within normal limits IMPRESSION: No acute intracranial hemorrhage, hydrocephalus or herniation. Cerebral volume loss and chronic small vessel ischemic changes. Consider MRI brain for further evaluation. Electronically signed by: Cuco Marie DO 08/28/2023 06:35 PM CDT Electronically Signed By: DCTNAME, RADCRED Date/Time: SIGNDATE CTA HEAD/BRAIN - Completed: 08/30/2023 13:23 LOINC: \TM00\\12PI\\DRAo\\BM09\ \MRLo\ [facility] [address] [place] [address] ---------NAME--------- NUMBER SEX AGE ADMIT DISC. XRAY# F/C TYPE DECOOK CATHERINE [id number] M 52 08/28/23 [id number] O/P DATE OF : 1970 M/R# [id number] #: [phone] 315 \MRHx\ LOCATION: TRANSCRIBED: 08/30/23 16:13 CTA HEAD/BRAIN [id number] COMPLETED:08/30/23 13:23 FG 01806 {Reason for Test: dizziness PHYSICIAN: MAXIMUS BERMUDEZ M RADIOLOGY REPORT EXAM DESCRIPTION: CTA HEAD/BRAIN (accession [id number]), CTA NECK (accession [id number]) HISTORY: dizziness TECHNIQUE: CTA images of the head and neck were obtained after rapid contrast administration with MIP and multiplanar reformats. 95 mL of Isovue-370 was administered intravenously. Carotid artery stenosis measurement is based on NASCET criteria. This exam was performed according to our departmental dose-optimization program, which includes automated exposure control, adjustment of the mA and/or kV according to patient size and/or use of iterative reconstruction technique. Total exam DLP (mGy-cm): 2193 COMPARISON: CT head 08/28/2023 FINDINGS: CTA NECK: There is a three-vessel aortic arch. The great vessel origins are patent. The brachiocephalic and proximal subclavian arteries are patent. The right common carotid artery is patent. There is 50% stenosis at the right ICA origin due to mixed atherosclerotic plaque. The right external carotid artery is patent. The left common carotid artery is patent. There is 40% stenosis at the left ICA origin due to mixed plaque. The left external carotid artery is patent. The right vertebral artery is patent. The left vertebral artery is patent. The venous structures of the neck enhance normally. No discrete neck mass or pathologic cervical lymphadenopathy identified. The visualized lung apices are clear. No suspicious osseous lesion. CTA HEAD: Mild atherosclerotic calcification at the bilateral cavernous and paraclinoid ICAs without significant stenosis. The right anterior cerebral, middle cerebral, and posterior cerebral arteries are patent. The left anterior cerebral, middle cerebral, and posterior cerebral arteries are patent. The posterior communicating arteries are not well visualized. The basilar artery is patent. The visualized proximal cerebellar arteries appear grossly patent. The right intracranial vertebral artery is patent. The left intracranial vertebral artery is patent. The vertebral arteries are codominant. No cerebral aneurysm is identified. There is no evidence of major intracranial venous thrombosis. IMPRESSION: No intracranial major vessel stenosis, aneurysm, or evidence of dissection. 50% stenosis at the right ICA origin. 40% stenosis at the left ICA origin. Electronically signed by: Jah Turner DO 08/30/2023 04:13 PM CDT RP Electronically Signed By: DCTNAME, RADCRED Date/Time: SIGNDATE CTA NECK - Completed: 2023 14:22 LOINC: \TM00\\12PI\\DRAo\\BM09\ \MRLo\ [facility] [address] [place] [address] ---------NAME--------- NUMBER SEX AGE ADMIT DISC. XRAY# F/C TYPE GEOOOK CATHERINE [id number] M 52 08/28/23 [id number] O/P DATE OF : 1970 M/R# [id number] #: [id number] 315 \MRx\ LOCATION: TRANSCRIBED: 08/30/23 16:13 CTA NECK [id number] COMPLETED:08/30/23 14:22 88068 {Reason for Test: dizziness PHYSICIAN: MAXIMUS BERMUDEZ M RADIOLOGY REPORT EXAM DESCRIPTION: CTA HEAD/BRAIN (accession [id number]), CTA NECK (accession [id number]) HISTORY: dizziness TECHNIQUE: CTA images of the head and neck were obtained after rapid contrast administration with MIP and multiplanar reformats. 95 mL of Isovue-370 was administered intravenously. Carotid artery stenosis measurement is based on NASCET criteria. This exam was performed according to our departmental dose-optimization program, which includes automated exposure control, adjustment of the mA and/or kV according to patient size and/or use of iterative reconstruction technique. Total exam DLP (mGy-cm): 2193 COMPARISON: CT head 08/28/2023 FINDINGS: CTA NECK: There is a three-vessel aortic arch. The great vessel origins are patent. The brachiocephalic and proximal subclavian arteries are patent. The right common carotid artery is patent. There is 50% stenosis at the right ICA origin due to mixed atherosclerotic plaque. The right external carotid artery is patent. The left common carotid artery is patent. There is 40% stenosis at the left ICA origin due to mixed plaque. The left external carotid artery is patent. The right vertebral artery is patent. The left vertebral artery is patent. The venous structures of the neck enhance normally. No discrete neck mass or pathologic cervical lymphadenopathy identified. The visualized lung apices are clear. No suspicious osseous lesion. CTA HEAD: Mild atherosclerotic calcification at the bilateral cavernous and paraclinoid ICAs without significant stenosis. The right anterior cerebral, middle cerebral, and posterior cerebral arteries are patent. The left anterior cerebral, middle cerebral, and posterior cerebral arteries are patent. The posterior communicating arteries are not well visualized. The basilar artery is patent. The visualized proximal cerebellar arteries appear grossly patent. The right intracranial vertebral artery is patent. The left intracranial vertebral artery is patent. The vertebral arteries are codominant. No cerebral aneurysm is identified. There is no evidence of major intracranial venous thrombosis. IMPRESSION: No intracranial major vessel stenosis, aneurysm, or evidence of dissection. 50% stenosis at the right ICA origin. 40% stenosis at the left ICA origin. Electronically signed by: Jah Turner DO 08/30/2023 04:13 PM CDT Electronically Signed By: MARY SORIANO Date/Time: SIGNDATE MRI BRAIN WO CONTRAST - Comp leted: 08/31/2023 15:33 LOINC: \TM00\\12PI\\DRAo\\BM09\ \MRLo\ [facility] [address] [place] [address] ---------NAME--------- NUMBER SEX AGE ADMIT DISC. XRAY# F/C TYPE DECOOK CATHERINE [id number] M 52 08/28/23 [id number] I/P DATE OF : 1970 M/R# [id number] PH#: [phone] RM 315 \MRHx\ LOCATION: TRANSCRIBED: 08/31/23 15:58 MRI BRAIN WO CONTRAST [id number] COMPLETED:08/31/23 15:33 LV [id number] {Reason for Test: ABNORMAL CT PHYSICIAN: [facility] RAD[facility]OLOG[facility] REPORT EXAM DESCRIPTION: MRI BRAIN WO CONTRAST CLINICAL HISTORY: ABNORMAL CT COMPARISON: CT head 08/28/2023 TECHNIQUE: Multisequence multiplanar MRI images of the brain were obtained without contrast. FINDINGS: The brain and cerebellum demonstrate normal signal. There is no acute ischemia or acute hemorrhage. The ventricles, cisterns, and sulci are age-appropriate. No hydrocephalus. The major intracranial flow voids are preserved. The sella and parasellar regions are within normal limits. The visualized internal auditory canals demonstrate no asymmetry or mass lesion. The calvarium and skull base demonstrate normal signal. The scalp soft tissue is unremarkable. The globes and orbits are unremarkable. The paranasal sinuses are patent. The mastoid air cells are patent. IMPRESSION: Normal noncontrast brain MRI for patients age. Electronically signed by: Jah Turner DO 08/31/2023 03:58 PM CDT Electronically Signed By: CHRISTIE, RADCRED Date/Time: SIGNDATE NM MYOCARDIAL PERFUSION AT R EST/STRESS - Completed: 08/30/2023 12:34 LOINC: PLEASE SEE SCANNED IMAGE. Dictating Initials: Transcribe Date: 09/08/23 14:24 Transcribe Initials: LAUREN US CAROTID DOPPLER - Complet ed: 08/30/2023 11:49 LOINC: \TM00\\12PI\\DRAo\\BM09\ \MRLo\ [facility] [address] [place] [address] ---------NAME--------- NUMBER SEX AGE ADMIT DISC. XRAY# F/C TYPE HERNANDEZ ALEXANDER [id number] M 52 08/28/23 [id number] O/P DATE OF : 1970 M/R# [id number] PH#: [phone] 315 \MRx\ LOCATION: TRANSCRIBED: 08/30/23 16:03 US CAROTID DOPPLER [id number] COMPLETED:08/30/23 11:49 FG [id number] {Reason for Abdomen: dizziness PHYSICIAN: MAXIMUS STERN SA RADIOLOGY REPORT EXAM: US CAROTID DOPPLER BILATERAL INDICATION: Dizziness COMPARISON: None TECHNIQUE: Color duplex Doppler was performed for evaluation of both carotid and both vertebral arteries from the clavicles inferiorly to the skull base superiorly. Spectral Doppler was used to interrogate these vessels at multiple locations, evaluating for vessel patency and stenosis. FINDINGS: in cm/sec Right: CCA peak systolic velocity: 88.4 Proximal ICA peak systolic velocity: 72.8 Proximal ICA end diastolic velocity: 10.7 External CCA systolic velocity: 95.5 ICA/CCA ratio: 1.0 Vertebral artery: Antegrade Atherosclerotic change: Focal moderate plaque at bulb Left: CCA peak systolic velocity: 107.4 Proximal ICA peak systolic velocity: 77.7 Proximal ICA end diastolic velocity: 28.2 External CCA systolic velocity: 96.4 ICA/CCA ratio: 1.4 Vertebral artery: Antegrade Atherosclerotic change: Focal moderate plaque at bulb IMPRESSION: No hemodynamically significant stenosis in the bilateral carotid arteries. Validated velocity measurements with angiographic measurements, velocity criteria are extrapolated from data as defined by the Society of Radiologists in Ultrasound Consensus Conference Radiology 2003; 229;340-346. [PSV = peak systolic velocity; EDV = end-diastolic velocity; ICA = internal carotid artery; CCA = common carotid artery] normal ICA PSV is <125 cm/sec and no plaque or intimal thickening is visible sonographically additional criteria include ICA/CCA PSV ratio <2.0 and ICA EDV <40 cm/sec Electronically signed by: Mukesh Thornton MD 08/30/2023 04:03 PM CDT Electronically Signed By: DCTNAME, RADCRED Date/Time: SIGNDATE XR CHEST 1V (PORTABLE) - Com pleted: 08/31/2023 08:44 LOINC: \TM00\\12PI\\DRAo\\BM09\ \MRLo\ [facility] [address] [place] [address] ---------NAME--------- NUMBER SEX AGE ADMIT DISC. XRAY# F/C TYPE GEOOOK CATHERINE [id number] M 52 08/28/23 [id number] O/P DATE OF : 1970 M/R# [id number] #: [id number] 315 \MRHx\ LOCATION: TRANSCRIBED: 08/31/23 12:09 XR CHEST 1V (PORTABLE) [id number] COMPLETED:08/31/23 8:44 [place] [id number] {Reason for Chest: Cough PHYSICIAN: MAXIMUS BERMUDEZ M RADIOLOGY REPORT EXAM DESCRIPTION: XR CHEST 1V (PORTABLE) CLINICAL HISTORY: Cough COMPARISON: 08/28/2023 TECHNIQUE: AP view of the chest, one view, 08/31/2023, 8:32 AM. FINDINGS: The lungs appear clear without mass or consolidation. No pleural effusion is identified. This image demonstrates the heart size to be within normal limits for an AP chest image. Postsurgical changes are noted secondary to prior sternotomy. Thoracic aorta is non-dilated, not tortuous and not visibly calcified. Visualized skeletal structures are unremarkable. IMPRESSION: No acute cardiopulmonary process. Electronically signed by: Mukesh Thornton MD 08/31/2023 12:09 PM CDT Electronically Signed By: MARY SORIANO Date/Time: SIGNDATE XR CHEST 1V (PORTABLE) - [facility] pleted: 08/28/2023 18:05 LOINC: \TM00\\12PI\\DRAo\\BM09\ \MRLo\ [facility] [address] [place] [address] ---------NAME--------- NUMBER SEX AGE ADMIT DISC. XRAY# F/C TYPE HERNANDEZ ALEXANDER [id number] M 52 08/28/23 [id number] E/R DATE OF : 1970 M/R# [id number] #: [id number] TRIAG \MRHx\ LOCATION: TRANSCRIBED: 08/28/23 18:33 XR CHEST 1V (PORTABLE) [id number] COMPLETED:08/28/23 18:05 000 [id number] {REASON FOR PROCEDURE: Chest Pain PHYSICIAN: CEM RADIOLOGY REPORT EXAM DESCRIPTION: XR CHEST 1V (PORTABLE) CLINICAL HISTORY:52 years Male, Chest Pain Comparison: None FINDINGS: No focal lung consolidation. No pleural effusion. No pneumothorax. Prior median sternotomy. Cardiomediastinal silhouette is within normal limits. No acute osseous abnormality. IMPRESSION: No acute cardiopulmonary disease. Electronically signed by: Cuco Marie DO 08/28/2023 06:33 PM CDT Electronically Signed By: DCTNAME, RADCRED Date/Time: SIGNDATE Social History Type Status Start Date End Date Code Code Syst em Smoking History Current every day smoker [id number] SNOMED CT Sex Male Vital Signs Vital Sign Value Unit [place] Value [place] Unit Date/Time Recent/Initial? Code Code System Body Mass Index 37.31 kg/m2 08/28/2023 21:36 Initial 07284 -5 [facility] Systolic Blood Pressure 157 mm[Hg] 08/31/2023 16:21 Most Recent 8480- 6 LOINC Diastolic Blood Pressure 87 mm[Hg] 08/31/2023 16:21 Most Recent 8462- 4 LOINC Systolic Blood Pressure 148 mm[Hg] 08/28/2023 21:48 Initial 8480- 6 LOINC Diastolic Blood Pressure 72 mm[Hg] 08/28/2023 21:48 Initial 8462- 4 LOINC Body Surface Area 2.41 m2 08/28/2023 21:36 Initial 3140- 1 LOINC Height 177.800 0 cm 70.00 in 08/28/2023 21:36 Initial 8302- 2 LOINC O2 Saturation 96 % 2023 16:21 Most Recent 21780 -5 LOINC O2 Saturation 94 % 2023 21:48 Initial 08625 -5 LOINC Pulse 68.0 /min 08/31/2023 16:21 Most Recent 8867- 4 LOINC Pulse 67.0 /min 08/28/2023 21:48 Initial 8867- 4 LOINC Respiration 18 /min 08/31/19 16:21 Most Recent 9279- 1 LOINC Respiration 18 /min 08/28/19 21:48 Initial 9279- 1 LOINC Temperature 36.7 Margaret 98.0 F 08/31/19 16:21 Most Recent 8310- 5 LOINC Temperature 36.7 Margaret 98.0 F 08/28/19 24 21:48 Initial 8310- 5 LOINC Weight 117.93 kg 260.00 lbs 08/28/2023 21:36 Initial 40853 -7 LOINC Assessment Assessment Hospital Discharge Instructions Should you have any questions prior to discharge, please contact a member of your healthcare team. If you have left the hospital and have any questions, please contact your primary care physician. Reason For Referral No Data Found Allergies and Adverse Reactions Allergy Substance Reaction Severity Start Date Concern Status Co de Code System STATINS (HMG-COA REDUCTASE INHIBITORS) JOINT ACHES (SNOMED-CT: null) Active Plan of Treatment Plan Encounters Encounter Diagnosis Start Date Code Code Sys tem Poisoning by cocaine 08/28/2023 [id number] SNOMED- CT Personal Care Team Section Performer Name Performer Role Active Date Inactive Da te Consultation Notes [facility] 08/29/2023 22:50 08/29/2023 22:46 All Demographics Patient Name Age Sex Visit Number Admission Date/Time Attending Physician Date of Service Room and Bed Emergency Contact CATEHRINE NG 1970 52 years Male [id number] 08/28/2023 18:54 TR MAXIMUS 08/28/2023 315 KOBE NG - [id number] Chief Complaint: ELEVATED BLOOD PRESSURE/CHEST PAIN/ DIZZY Mr. Alexander is 52 yo male with past med hx of CAD s/p 4V CABG, DLD, HTN admitted with pressure like chest pain x few days, associated with dizziness and SOB. EKG with NSR, no acute ST changes. Troponin is negative. Echo with normal RV and LV function. He had left heart cath 9 months ago at [facility] with patent grafts as per patient. Denies any orthopnea, PND. Most Recent Vital Signs BP (mm/Hg) BP Position/Site MAP (mm/Hg) Heart Rate Resp Temp (C) Temp (F) SPO2% O2 Device Pain Score Height (cm) Height (in) Weight (kg) Weight (lbs/ozs) 116/73 Lying/Left Arm 87 69 16 36.4 Oral 97.6 Oral 93 % Room Air 21% 177.8 cm 70 in 117.93 kg 260.0 Lab Results: Last 8 Hours: No Labs Available Active Home Meds Medication Dosage Route Frequency Last Dose Date Prescribing MD Special Instructions ProAir RespiClick 0.09MG/1 Actuation Inhalation Powder 1 EACH INHALATION amLODIPine Besylate 10MG Oral Tablet 10 MILLIGRAMS ORAL Aspirin 81MG Oral Tablet, Enteric Coated 81 MILLIGRAMS ORAL Coreg 12.5MG Oral Tablet 12.5 MILLIGRAMS ORAL Isosorbide Dinitrate 30MG Oral Tablet 30 MILLIGRAMS ORAL Nicotine 21MG/24HR Transdermal Patch, Extended Release 1 EACH TRANSDERMAL SEROquel 50MG Oral Tablet 50 MILLIGRAMS ORAL Spironolactone 25MG Oral Tablet 25 MILLIGRAMS ORAL Home Meds List ProAir RespiClick 0.09MG/1 Actuation Inhalation Powder amLODIPine Besylate 10MG Oral Tablet Aspirin 81MG Oral Tablet, Enteric Coated Coreg 12.5MG Oral Tablet Isosorbide Dinitrate 30MG Oral Tablet Nicotine 21MG/24HR Transdermal Patch, Extended Release SEROquel 50MG Oral Tablet Spironolactone 25MG Oral Tablet Surgery History Table: No Surgical History Available Family History Table: No Family History Available ROS as per HPI Physical exam Gen- no fever HEENT- no nasal bleeding Mental- alert, responds well to questions Neck- Supple CVS- S1+ S2, normal rate Resp- Bilateral air entry noted Abdomen- Abdomen appears to be soft without any acute distention Extremities- no obvious deformity noted Musculoskeletal- no deformity noted Skin--- no obvious skin lesion noted Neurological- No AMS, alert to questions Psychiatry- no anxiety Plan 1. Chest pain Patient has chest pain symptoms with risk factor Patient has these symptoms on and off in recent past ECG showed SR without acute ST changes on ECG Currently asymptomatic from cardiac viewpoint Start on ASA, B marj and statin and PRN NTG for chest pain Get Lexiscan MPS to rule out obstructive CAD since has risk factor Discussed plan in detail. Questioned encouraged and answered. Voiced understanding 2. HTN Continue medical management 3. Dyslipidemia start atorvastatin 40 mg daily Imaging Narrative Notes [facility] \TM00\\12PI\\DRAo\\BM09\ \MRLo\ [facility] [address] [place] [address] ---------NAME--------- NUMBER SEX AGE ADMIT DISC. XRAY# F/C TYPE GEOOOK CATHERINE [id number] M 52 08/28/23 [id number] E/R DATE OF : 1970 M/R# [id number] #: [id number] TRIAG \MRHx\ LOCATION: TRANSCRIBED: 08/28/23 18:33 XR CHEST 1V (PORTABLE) [id number] COMPLETED:08/28/23 18:05 000 [id number] {REASON FOR PROCEDURE: Chest Pain PHYSICIAN: CEM RADIOLOGY REPORT EXAM DESCRIPTION: XR CHEST 1V (PORTABLE) CLINICAL HISTORY:52 years Male, Chest Pain Comparison: None FINDINGS: No focal lung consolidation. No pleural effusion. No pneumothorax. Prior median sternotomy. Cardiomediastinal silhouette is within normal limits. No acute osseous abnormality. IMPRESSION: No acute cardiopulmonary disease. Electronically signed by: Cuco Marie DO 08/28/2023 06:33 PM CDT Electronically Signed By: MARY SORIANO Date/Time: SIGNDATE [facility] 09/08/2023 14:24 [facility] [address] [place] [address] __ Diagnostic Radiology Name: HERNANDEZ ALEXANDER Patient Number: [id number] Age: 52 Sex: M Admitting Physician: MAXIMUS BERNARD Ordering Physician: ALINE Beckman Type: I/P Admit Date: 08/28/23 Shower Attendant Date: 09/08/23 X-ray Number: [id number] Sleeping Room Cleaner Initials: SF Unsigned Transcriptions are preliminary reports and do not represent a Medical or Legal Document [place] [id number] COMPLETE:08/30/23 12:34 [place] [id number] (Reason for Process: CHEST PAIN PLEASE SEE SCANNED IMAGE. Dictating Initials: Transcribe Date: 09/08/23 14:24 Transcribe Initials: [facility] \TM00\\12PI\\DRAo\\BM09\ \MRLo\ [facility] [address] [place] [address] ---------NAME--------- NUMBER SEX AGE ADMIT DISC. XRAY# F/C TYPE HERNANDEZ ALEXANDER [id number] M 52 08/28/23 [id number] I/P DATE OF : 1970 M/R# [id number] PH#: [id number] 315 \MRHx\ LOCATION: TRANSCRIBED: 08/31/23 15:58 MRI BRAIN WO CONTRAST [id number] COMPLETED:08/31/23 15:33 [place] [id number] {Reason for Test: ABNORMAL CT PHYSICIAN: MAXIMUS BENRARD RADIOLOGY REPORT EXAM DESCRIPTION: MRI BRAIN WO CONTRAST CLINICAL HISTORY: ABNORMAL CT COMPARISON: CT head 08/28/2023 TECHNIQUE: Multisequence multiplanar MRI images of the brain were obtained without contrast. FINDINGS: The brain and cerebellum demonstrate normal signal. There is no acute ischemia or acute hemorrhage. The ventricles, cisterns, and sulci are age-appropriate. No hydrocephalus. The major intracranial flow voids are preserved. The sella and parasellar regions are within normal limits. The visualized internal auditory canals demonstrate no asymmetry or mass lesion. The calvarium and skull base demonstrate normal signal. The scalp soft tissue is unremarkable. The globes and orbits are unremarkable. The paranasal sinuses are patent. The mastoid air cells are patent. IMPRESSION: Normal noncontrast brain MRI for patients age. Electronically signed by: Jah Turner DO 08/31/2023 03:58 PM CDT RP Electronically Signed By: DCTNAME, RADCRED Date/Time: SIGNDATE [facility] \TM00\\12PI\\DRAo\\BM09\ \MRLo\ [facility] [address] [place] [address] ---------NAME--------- NUMBER SEX AGE ADMIT DISC. XRAY# F/C TYPE DECOOK CATHERINE [id number] M 52 08/28/23 [id number] O/P DATE OF : 1970 M/R# [id number] #: [id number] 315 \MRx\ LOCATION: TRANSCRIBED: 08/30/23 16:03 US CAROTID DOPPLER [id number] COMPLETED:08/30/23 11:49 FG [id number] {Reason for Abdomen: dizziness PHYSICIAN: MAXIMUS STERN SA RADIOLOGY REPORT EXAM: US CAROTID DOPPLER BILATERAL INDICATION: Dizziness COMPARISON: None TECHNIQUE: Color duplex Doppler was performed for evaluation of both carotid and both vertebral arteries from the clavicles inferiorly to the skull base superiorly. Spectral Doppler was used to interrogate these vessels at multiple locations, evaluating for vessel patency and stenosis. FINDINGS: in cm/sec Right: CCA peak systolic velocity: 88.4 Proximal ICA peak systolic velocity: 72.8 Proximal ICA end diastolic velocity: 10.7 External CCA systolic velocity: 95.5 ICA/CCA ratio: 1.0 Vertebral artery: Antegrade Atherosclerotic change: Focal moderate plaque at bulb Left: CCA peak systolic velocity: 107.4 Proximal ICA peak systolic velocity: 77.7 Proximal ICA end diastolic velocity: 28.2 External CCA systolic velocity: 96.4 ICA/CCA ratio: 1.4 Vertebral artery: Antegrade Atherosclerotic change: Focal moderate plaque at bulb IMPRESSION: No hemodynamically significant stenosis in the bilateral carotid arteries. Validated velocity measurements with angiographic measurements, velocity criteria are extrapolated from data as defined by the Society of Radiologists in Ultrasound Consensus Conference Radiology 2003; 229;340-346. [PSV = peak systolic velocity; EDV = end-diastolic velocity; ICA = internal carotid artery; CCA = common carotid artery] normal ICA PSV is <125 cm/sec and no plaque or intimal thickening is visible sonographically additional criteria include ICA/CCA PSV ratio <2.0 and ICA EDV <40 cm/sec Electronically signed by: Mukesh Thornton MD 08/30/2023 04:03 PM CDT Electronically Signed By: DCTNAME, RADCRED Date/Time: [facility] \TM00\\12PI\\DRAo\\BM09\ \MRLo\ [facility] [address] [place] [address] ---------NAME--------- NUMBER SEX AGE ADMIT DISC. XRAY# F/C TYPE HERNANDEZ ALEXANDER [id number] M 52 08/28/23 [id number] E/R DATE OF : 1970 M/R# [id number] #: [id number] TRI \MRHx\ LOCATION: TRANSCRIBED: 08/28/23 18:35 CT BRAIN WO CONTRAST [id number] COMPLETED:08/28/23 18:24 000 [id number] {REASON FOR PROCEDURE: Dizziness PHYSICIAN: CEM RADIOLOGY REPORT EXAM DESCRIPTION: CT BRAIN WO CONTRAST CLINICAL HISTORY: 52 years Male Dizziness COMPARISON: None Technique: Contiguous axial images of the brain were obtained without the administration of intravenous contrast.This exam was performed according to our departmental dose-optimization program which includes use of Automated Exposure Control, adjustment of the mA and/or kV according to patient size and/or use of iterative reconstruction technique. DLP: 778 mGy*cm FINDINGS: Brain: No acute intracranial hemorrhage. No extra-axial collection. No mass effect or herniation. Mild prominence of the sulci and cisterns. Confluent periventricular and subcortical white matter hypodensity is noted. Vascular calcifications. Ventricles: Within normal limits in size. Globes and orbits: No acute abnormality. Bones: No acute osseous finding Paranasal sinuses: Paranasal sinuses are clear. Mastoid air cells: Well pneumatized. Soft tissues: Within normal limits IMPRESSION: No acute intracranial hemorrhage, hydrocephalus or herniation. Cerebral volume loss and chronic small vessel ischemic changes. Consider MRI brain for further evaluation. Electronically signed by: Cuco Marie DO 08/28/2023 06:35 PM CDT Electronically Signed By: DCTNAME, RADCRED Date/Time: SIGNDATE [facility] \TM00\\12PI\\DRAo\\BM09\ \MRLo\ [facility] [address] [place] [address] ---------NAME--------- NUMBER SEX AGE ADMIT DISC. XRAY# F/C TYPE GEOOOK CATHERINE [id number] M 52 08/28/23 [id number] O/P DATE OF : 1970 M/R# [id number] #: [id number] 315 \MRHx\ LOCATION: TRANSCRIBED: 08/31/23 12:09 XR CHEST 1V (PORTABLE) [id number] COMPLETED:08/31/23 8:44 [place] [id number] {Reason for Chest: Cough PHYSICIAN: MAXIMUS BERMUDEZ M RADIOLOGY REPORT EXAM DESCRIPTION: XR CHEST 1V (PORTABLE) CLINICAL HISTORY: Cough COMPARISON: 08/28/2023 TECHNIQUE: AP view of the chest, one view, 08/31/2023, 8:32 AM. FINDINGS: The lungs appear clear without mass or consolidation. No pleural effusion is identified. This image demonstrates the heart size to be within normal limits for an AP chest image. Postsurgical changes are noted secondary to prior sternotomy. Thoracic aorta is non-dilated, not tortuous and not visibly calcified. Visualized skeletal structures are unremarkable. IMPRESSION: No acute cardiopulmonary process. Electronically signed by: Mukesh Thornton MD 08/31/2023 12:09 PM CDT RP Electronically Signed By: DCTNAME, RADCRED Date/Time: SIGNDATE History and Physical Notes [facility] 08/29/2023 11:50 [facility] [address] [facility] [place] [address] 08/29/2023 HISTORY AND PHYSICAL RE: Patient Name: CATHERINE NG Date of Admission: 08/28/2023 Patient Name Age Sex Visit Number Admission Date/Time Discharge Date/Time Hospital Days Primary Care Physician Attending Physician Date of Service Room and Bed Emergency Contact CATHERINE NG 1970 52 years Male [id number] 08/28/2023 18:54 2 NO PCP PRESENT TRCHUCHO STROUD 08/28/2023 315 KOBE NG - [id number] : All Demographics Patient Name Age Sex Visit Number Admission Date/Time Attending Physician Date of Service Room and Bed Emergency Contact CATHERINE NG 1970 52 years Male [id number] 08/28/2023 18:54 TR MAXIMUS 08/28/2023 315 KOBE NG - [id number] MRN: REFERRING PHYSICIAN: CHIEF COMPLAINT: Chief Complaint: ELEVATED BLOOD PRESSURE/CHEST PAIN/ DIZZY HISTORY OF PRESENT ILLNESS: 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 States he has had uncontrolled blood pressure causing chest pains and increased anxiety. Patient presented to the emergency room for evaluation. His blood pressure has since been brought into better control. He has a history of CABG. Patient is an anxious person appears by nature. Patient has seen roll handler medication has been adjusted echocardiogram will be ordered due to his heart history. Medications to be adjusted appropriately. New prescription will be provided as appropriate. PAST MEDICAL HISTORY: Hypertension Coronary artery disease Obesity BMI greater than 30 Anxiety Asthma PAST SURGICAL HISTORY: Surgery List: CABG HOME MEDICATIONS: Home Meds List ProAir RespiClick 0.09MG/1 Actuation Inhalation Powder amLODIPine Besylate 10MG Oral Tablet Aspirin 81MG Oral Tablet, Enteric Coated Coreg 12.5MG Oral Tablet Isosorbide Dinitrate 30MG Oral Tablet Nicotine 21MG/24HR Transdermal Patch, Extended Release SEROquel 50MG Oral Tablet Spironolactone 25MG Oral Tablet MEDICATION ALLERGIES: Allergy List STATINS (HMG-COA REDUCTASE INHIBITORS), Medication SOCIAL HISTORY: Smoking Status: Current every day smoker, Cessation Education: FAMILY HISTORY: Family History List: No Family History Available REVIEW OF SYSTEMS: see the HPI PHYSICAL EXAMINATION: General: Patient is alert and oriented in moderate distress secondary to pain, weak frail HEENT: pupils equally round and reactive light accommodation extraocular movement intact , bilateral periorbital edema Neck: no JVD, no bruits, no thyromegaly Lymph: no lymphadenopathy in neck supraclavicular or axillary lymph nodes Cardiovascular: irregular Pulmonary: Diminished bilaterally, scattered wheezes Abdomen: soft nontender, obese Extremities: no lower extremity edema Musculoskeletal: tender to palpation cervical spine Neurologic: cranial nerves 2-12 intact no acute focal nerve deficits noted Integumentary: no skin rashes bruises or abrasions DIAGNOSTIC STUDIES: Lab Results: Last 24 Hours Test Results Units Reference Range Ordered Collected Status WBC 10.2 K/uL L=3.5 H=10.3 08/29/2023 07:00 08/29/2023 03:30 final RBC 5.74 M/uL L=4.20 H=6.20 08/29/2023 07:00 08/29/2023 03:30 final HEMOGLOBIN 16.0 g/dL L=13.5 H=17.1 08/29/2023 07:00 08/29/2023 03:30 final HEMATOCRIT 48.8 % L=39.0 H=52.0 08/29/2023 07:00 08/29/2023 03:30 final MCV 85.0 fL L=80.0 H=100 08/29/2023 07:00 08/29/2023 03:30 final MCH 27.9 pg L=26.0 H=34.4 08/29/2023 07:00 08/29/2023 03:30 final MCHC 32.8 g/dL L=31.8 H=36.3 08/29/2023 07:00 08/29/2023 03:30 final RDW 13.0 % L=10.8 H=14.9 08/29/2023 07:00 08/29/2023 03:30 final PLATELETS 256 K/uL L=150 H=500 08/29/2023 07:00 08/29/2023 03:30 final MPV 10.8 fL L=8.1 H=12.4 08/29/2023 07:00 08/29/2023 03:30 final %NEUT 54.5 % L=38.3 H=69.0 08/29/2023 07:00 08/29/2023 03:30 final %LYMPH 32.4 % L=17.5 H=47.9 08/29/2023 07:00 08/29/2023 03:30 final %MONO 9.3 % L=2.0 H=15.0 08/29/2023 07:00 08/29/2023 03:30 final %EOS 3.0 % L=0.0 H=5.0 08/29/2023 07:00 08/29/2023 03:30 final %BASO 0.5 % L=0.0 H=3.0 08/29/2023 07:00 08/29/2023 03:30 final %IG 0.30 % L=0.00 H=1.00 08/29/2023 07:00 08/29/2023 03:30 final #NEUT 5.58 H K/uL L=1.20 H=5.30 08/29/2023 07:00 08/29/2023 03:30 final #LYMPH 3.31 H K/uL L=0.80 H=2.70 08/29/2023 07:00 08/29/2023 03:30 final #MONO 0.95 H K/uL L=0.10 H=0.60 08/29/2023 07:00 08/29/2023 03:30 final #EOS 0.31 H K/uL L=0.00 H=0.30 08/29/2023 07:00 08/29/2023 03:30 final #BASO 0.05 K/uL L=0.00 H=0.10 08/29/2023 07:00 08/29/2023 03:30 final #IG 0.03 L=0.00 H=1.00 08/29/2023 07:00 08/29/2023 03:30 final MANUAL DIFF NOT INDICATED NOT INDICATED 08/29/2023 07:00 08/29/2023 03:30 final RBC MORPH NOT INDICATED NOT INDICATED 08/29/2023 07:00 08/29/2023 03:30 final SMEAR REVIEW NOT INDICATED NOT INDICATED 08/29/2023 07:00 08/29/2023 03:30 final GLUCOSE 91 mg/dL L=74 H=106 08/29/2023 06:00 08/29/2023 03:30 final BUN 19 mg/dL L=9 H=20 08/29/2023 06:00 08/29/2023 03:30 final CREATININE 1.1 mg/dL L=0.6 H=1.2 08/29/2023 06:00 08/29/2023 03:30 final SODIUM 141 mEq/L L=137 H=145 08/29/2023 06:00 08/29/2023 03:30 final POTASSIUM 4.0 mEq/L L=3.5 H=5.1 08/29/2023 06:00 08/29/2023 03:30 final CHLORIDE 107 mEq/L L=98 H=107 08/29/2023 06:00 08/29/2023 03:30 final CO2 29 mEq/L L=22 H=30 08/29/2023 06:00 08/29/2023 03:30 final BUN/CREAT 17 L=6 H=25 08/29/2023 06:00 08/29/2023 03:30 final ANION GAP 5 L=5 H=15 08/29/2023 06:00 08/29/2023 03:30 final CALCIUM 8.6 mg/dL L=8.4 H=10.2 08/29/2023 06:00 08/29/2023 03:30 final TOTAL PROTEIN 7.9 g/dL L=6.3 H=8.2 08/29/2023 06:00 08/29/2023 03:30 final ALBUMIN 4.1 g/dL L=3.5 H=5.0 08/29/2023 06:00 08/29/2023 03:30 final GLOBULIN 4 g/dL L=2 H=4 08/29/2023 06:00 08/29/2023 03:30 final A/G RATIO 1.0 L=0.8 H=2.0 08/29/2023 06:00 08/29/2023 03:30 final SGOT/AST 40 IU/L L=15 H=46 08/29/2023 06:00 08/29/2023 03:30 final SGPT/ALTV 40 IU/L L=0 H=50 08/29/2023 06:00 08/29/2023 03:30 final ALKALINE PHOS 100 IU/L L=38 H=126 08/29/2023 06:00 08/29/2023 03:30 final TOTAL BILI 0.7 mg/dL L=0.2 H=1.3 08/29/2023 06:00 08/29/2023 03:30 final AGE 52 yrs 08/29/2023 06:00 08/29/2023 03:30 final NON-AA GFR 70 mL/min 08/29/2023 06:00 08/29/2023 03:30 final AFR AMER GFR 84 mL/min 08/29/2023 06:00 08/29/2023 03:30 final OSMOLALITY 294 mOsm/K L=275 H=295 08/29/2023 06:00 08/29/2023 03:30 final TROPONIN VIT <0.012 ng/mL L=0.012 H=0.034 08/28/2023 20:50 08/29/2023 02:27 final TROPONIN VIT <0.012 ng/mL L=0.012 H=0.034 08/28/2023 21:58 08/28/2023 23:22 final INFLUENZA A NEGATIVE NEGATIVE NORMAL: NEGATIVE 08/28/2023 17:57 08/28/2023 18:09 final INFLUENZA B NEGATIVE NEGATIVE NORMAL: NEGATIVE 08/28/2023 17:57 08/28/2023 18:09 final SARS ANTIGEN NEGATIVE NEGATIVE 08/28/2023 17:57 08/28/2023 18:09 final NT-PRO BNP 104 L=0 H=301 08/28/2023 17:50 08/28/2023 17:55 final WBC 9.7 K/uL L=3.5 H=10.3 08/28/2023 17:50 08/28/2023 17:55 final RBC 5.67 M/uL L=4.20 H=6.20 08/28/2023 17:50 08/28/2023 17:55 final HEMOGLOBIN 15.9 g/dL L=13.5 H=17.1 08/28/2023 17:50 08/28/2023 17:55 final HEMATOCRIT 47.4 % L=39.0 H=52.0 08/28/2023 17:50 08/28/2023 17:55 final MCV 83.6 fL L=80.0 H=100 08/28/2023 17:50 08/28/2023 17:55 final MCH 28.0 pg L=26.0 H=34.4 08/28/2023 17:50 08/28/2023 17:55 final MCHC 33.5 g/dL L=31.8 H=36.3 08/28/2023 17:50 08/28/2023 17:55 final RDW 12.7 % L=10.8 H=14.9 08/28/2023 17:50 08/28/2023 17:55 final PLATELETS 282 K/uL L=150 H=500 08/28/2023 17:50 08/28/2023 17:55 final MPV 9.2 fL L=8.1 H=12.4 08/28/2023 17:50 08/28/2023 17:55 final %NEUT 64.0 % L=38.3 H=69.0 08/28/2023 17:50 08/28/2023 17:55 final %LYMPH 23.5 % L=17.5 H=47.9 08/28/2023 17:50 08/28/2023 17:55 final %MONO 9.3 % L=2.0 H=15.0 08/28/2023 17:50 08/28/2023 17:55 final %EOS 2.4 % L=0.0 H=5.0 08/28/2023 17:50 08/28/2023 17:55 final %BASO 0.4 % L=0.0 H=3.0 08/28/2023 17:50 08/28/2023 17:55 final %IG 0.40 % L=0.00 H=1.00 08/28/2023 17:50 08/28/2023 17:55 final #NEUT 6.18 H K/uL L=1.20 H=5.30 08/28/2023 17:50 08/28/2023 17:55 final #LYMPH 2.27 K/uL L=0.80 H=2.70 08/28/2023 17:50 08/28/2023 17:55 final #MONO 0.90 H K/uL L=0.10 H=0.60 08/28/2023 17:50 08/28/2023 17:55 final #EOS 0.23 K/uL L=0.00 H=0.30 08/28/2023 17:50 08/28/2023 17:55 final #BASO 0.04 K/uL L=0.00 H=0.10 08/28/2023 17:50 08/28/2023 17:55 final #IG 0.04 L=0.00 H=1.00 08/28/2023 17:50 08/28/2023 17:55 final MANUAL DIFF NOT INDICATED NOT INDICATED 08/28/2023 17:50 08/28/2023 17:55 final RBC MORPH NOT INDICATED NOT INDICATED 08/28/2023 17:50 08/28/2023 17:55 final SMEAR REVIEW NOT INDICATED NOT INDICATED 08/28/2023 17:50 08/28/2023 17:55 final GLUCOSE 116 H mg/dL L=74 H=106 08/28/2023 17:50 08/28/2023 17:55 final BUN 16 mg/dL L=9 H=20 08/28/2023 17:50 08/28/2023 17:55 final CREATININE 1.0 mg/dL L=0.6 H=1.2 08/28/2023 17:50 08/28/2023 17:55 final SODIUM 141 mEq/L L=137 H=145 08/28/2023 17:50 08/28/2023 17:55 final POTASSIUM 4.0 mEq/L L=3.5 H=5.1 08/28/2023 17:50 08/28/2023 17:55 final CHLORIDE 110 H mEq/L L=98 H=107 08/28/2023 17:50 08/28/2023 17:55 final CO2 26 mEq/L L=22 H=30 08/28/2023 17:50 08/28/2023 17:55 final BUN/CREAT 16 L=6 H=25 08/28/2023 17:50 08/28/2023 17:55 final ANION GAP 5 L=5 H=15 08/28/2023 17:50 08/28/2023 17:55 final CALCIUM 9.0 mg/dL L=8.4 H=10.2 08/28/2023 17:50 08/28/2023 17:55 final TOTAL PROTEIN 7.8 g/dL L=6.3 H=8.2 08/28/2023 17:50 08/28/2023 17:55 final ALBUMIN 4.1 g/dL L=3.5 H=5.0 08/28/2023 17:50 08/28/2023 17:55 final GLOBULIN 4 g/dL L=2 H=4 08/28/2023 17:50 08/28/2023 17:55 final A/G RATIO 1.0 L=0.8 H=2.0 08/28/2023 17:50 08/28/2023 17:55 final SGOT/AST 40 IU/L L=15 H=46 08/28/2023 17:50 08/28/2023 17:55 final SGPT/ALTV 39 IU/L L=0 H=50 08/28/2023 17:50 08/28/2023 17:55 final ALKALINE PHOS 90 IU/L L=38 H=126 08/28/2023 17:50 08/28/2023 17:55 final TOTAL BILI 0.6 mg/dL L=0.2 H=1.3 08/28/2023 17:50 08/28/2023 17:55 final AGE 52 yrs 08/28/2023 17:50 08/28/2023 17:55 final NON-AA GFR 78 mL/min 08/28/2023 17:50 08/28/2023 17:55 final AFR AMER GFR 94 mL/min 08/28/2023 17:50 08/28/2023 17:55 final OSMOLALITY 294 mOsm/K L=275 H=295 08/28/2023 17:50 08/28/2023 17:55 final D-DIMER QUANT 465 FEU ng/mL L=0 H=500 08/28/2023 17:50 08/28/2023 17:55 final LIPASE 70 IU/L L=23 H=300 08/28/2023 17:50 08/28/2023 17:55 final MAGNESIUM 2.2 mg/dL L=1.6 H=2.3 08/28/2023 17:50 08/28/2023 17:55 final PT 12.200 secs L=9.400 H=12.500 08/28/2023 17:50 08/28/2023 17:55 final INR 1.04 L=0.00 H=3.50 08/28/2023 17:50 08/28/2023 17:55 final PTT 70.000 H Secs L=25.100 H=36.500 08/28/2023 17:50 08/28/2023 17:55 final TROPONIN VIT <0.012 ng/mL L=0.012 H=0.034 08/28/2023 17:50 08/28/2023 17:55 final ASSESSMENT AND PLAN: Assessment Uncontrolled hypertension Obesity BMI greater than 30 Anxiety Osteoarthritis DJD Plan continue current medications. Cardiology consulted to assist with management of uncontrolled hypertension Echocardiogram pending Resume home medications as appropriate Progress Notes [facility] 08/31/2023 23:17 Progress Note Patient Name: CATHERINE NG, : 1970, Age: 52 years 08/30/2023 SUBJECTIVE: Doing well no cp Vital Signs: Vital Signs: Last 24 Hours Date/Time BP (mm/Hg) BP Position/Site MAP (mm/Hg) Heart Rate Pulse Site Resp Temp (C) Temp (F) SPO2% O2 L/min FiO2 O2 Device Blood Sugar Pain Score Weight (kg) Weight (lbs/ozs) Scale BSA 08/30/2023 07:05 133/72 Lying/Right Arm 92 92 Monitor 18 36.5 Oral 97.7 Oral 96 % Room Air 21% 08/30/2023 03:29 105/46 Lying/Right Arm 66 55 Brachial 14 36.6 Temporal Scanning 97.9 Temporal Scanning 96 % Room Air 21% 08/29/2023 23:42 142/81 Lying/Left Arm 101 64 Brachial 16 36.7 Temporal Scanning 98 Temporal Scanning 93 % Room Air 21% 08/29/2023 19:48 116/73 Lying/Left Arm 87 69 Brachial 16 36.4 Oral 97.6 Oral 93 % Room Air 21% Physical Exam: Constitutional: Appears well-developed and well-nourished. No distress. HENT: Normocephalic and atraumatic. Oropharynx is clear and moist. Eyes: EOM are normal. Pupils are round and equal. Neck: Normal range of motion. Neck supple. No JVD. Cardiovascular: Normal rate. Regular rhythm. Normal heart sounds. Respiratory: Normal effort. No wheeze. No crackles. Gastrointestinal: Soft. Bowel sounds are normal. No distension. No tenderness. Musculoskeletal: Normal range of motion. No edema. No deformity. Extremities: Capillary refill <2 seconds. Normal peripheral pulses. Neurological: Alert & oriented to person, place, and time. No focal motor deficits. Skin: Skin is warm. Normal color. No rash noted. No erythema. Psychiatric: Normal mood and affect. Behavior is normal. LAB: Lab Results: Last 24 Hours Test Results Units Reference Range Ordered Collected Status WBC 9.5 K/uL L=3.5 H=10.3 08/30/2023 00:00 08/30/2023 03:15 final RBC 4.92 M/uL L=4.20 H=6.20 08/30/2023 00:00 08/30/2023 03:15 final HEMOGLOBIN 13.8 g/dL L=13.5 H=17.1 08/30/2023 00:00 08/30/2023 03:15 final HEMATOCRIT 42.5 % L=39.0 H=52.0 08/30/2023 00:00 08/30/2023 03:15 final MCV 86.4 fL L=80.0 H=100 08/30/2023 00:00 08/30/2023 03:15 final MCH 28.0 pg L=26.0 H=34.4 08/30/2023 00:00 08/30/2023 03:15 final MCHC 32.5 g/dL L=31.8 H=36.3 08/30/2023 00:00 08/30/2023 03:15 final RDW 12.8 % L=10.8 H=14.9 08/30/2023 00:00 08/30/2023 03:15 final PLATELETS 248 K/uL L=150 H=500 08/30/2023 00:00 08/30/2023 03:15 final MPV 9.5 fL L=8.1 H=12.4 08/30/2023 00:00 08/30/2023 03:15 final %NEUT 61.7 % L=38.3 H=69.0 08/30/2023 00:00 08/30/2023 03:15 final %LYMPH 25.9 % L=17.5 H=47.9 08/30/2023 00:00 08/30/2023 03:15 final %MONO 8.5 % L=2.0 H=15.0 08/30/2023 00:00 08/30/2023 03:15 final %EOS 3.0 % L=0.0 H=5.0 08/30/2023 00:00 08/30/2023 03:15 final %BASO 0.5 % L=0.0 H=3.0 08/30/2023 00:00 08/30/2023 03:15 final %IG 0.40 % L=0.00 H=1.00 08/30/2023 00:00 08/30/2023 03:15 final #NEUT 5.84 H K/uL L=1.20 H=5.30 08/30/2023 00:00 08/30/2023 03:15 final #LYMPH 2.46 K/uL L=0.80 H=2.70 08/30/2023 00:00 08/30/2023 03:15 final #MONO 0.81 H K/uL L=0.10 H=0.60 08/30/2023 00:00 08/30/2023 03:15 final #EOS 0.28 K/uL L=0.00 H=0.30 08/30/2023 00:00 08/30/2023 03:15 final #BASO 0.05 K/uL L=0.00 H=0.10 08/30/2023 00:00 08/30/2023 03:15 final #IG 0.04 L=0.00 H=1.00 08/30/2023 00:00 08/30/2023 03:15 final MANUAL DIFF NOT INDICATED NOT INDICATED 08/30/2023 00:00 08/30/2023 03:15 final RBC MORPH NOT INDICATED NOT INDICATED 08/30/2023 00:00 08/30/2023 03:15 final SMEAR REVIEW NOT INDICATED NOT INDICATED 08/30/2023 00:00 08/30/2023 03:15 final GLUCOSE 119 H mg/dL L=74 H=106 08/30/2023 00:00 08/30/2023 03:15 final BUN 16 mg/dL L=9 H=20 08/30/2023 00:00 08/30/2023 03:15 final CREATININE 1.0 mg/dL L=0.6 H=1.2 08/30/2023 00:00 08/30/2023 03:15 final SODIUM 138 mEq/L L=137 H=145 08/30/2023 00:00 08/30/2023 03:15 final POTASSIUM 4.3 mEq/L L=3.5 H=5.1 08/30/2023 00:00 08/30/2023 03:15 final CHLORIDE 108 H mEq/L L=98 H=107 08/30/2023 00:00 08/30/2023 03:15 final CO2 28 mEq/L L=22 H=30 08/30/2023 00:00 08/30/2023 03:15 final BUN/CREAT 16 L=6 H=25 08/30/2023 00:00 08/30/2023 03:15 final ANION GAP 2 L L=5 H=15 08/30/2023 00:00 08/30/2023 03:15 final CALCIUM 8.2 L mg/dL L=8.4 H=10.2 08/30/2023 00:00 08/30/2023 03:15 final TOTAL PROTEIN 6.2 L g/dL L=6.3 H=8.2 08/30/2023 00:00 08/30/2023 03:15 final ALBUMIN 3.2 L g/dL L=3.5 H=5.0 08/30/2023 00:00 08/30/2023 03:15 final GLOBULIN 3 g/dL L=2 H=4 08/30/2023 00:00 08/30/2023 03:15 final A/G RATIO 1.1 L=0.8 H=2.0 08/30/2023 00:00 08/30/2023 03:15 final SGOT/AST 30 IU/L L=15 H=46 08/30/2023 00:00 08/30/2023 03:15 final SGPT/ALTV 31 IU/L L=0 H=50 08/30/2023 00:00 08/30/2023 03:15 final ALKALINE PHOS 72 IU/L L=38 H=126 08/30/2023 00:00 08/30/2023 03:15 final TOTAL BILI 0.5 mg/dL L=0.2 H=1.3 08/30/2023 00:00 08/30/2023 03:15 final AGE 52 yrs 08/30/2023 00:00 08/30/2023 03:15 final NON-AA GFR 78 mL/min 08/30/2023 00:00 08/30/2023 03:15 final AFR AMER GFR 94 mL/min 08/30/2023 00:00 08/30/2023 03:15 final OSMOLALITY 288 mOsm/K L=275 H=295 08/30/2023 00:00 08/30/2023 03:15 final TROPONIN VIT <0.012 ng/mL L=0.012 H=0.034 08/28/2023 23:50 08/30/2023 03:15 final Plan 1. Chest pain Patient has chest pain symptoms with risk factor Patient has these symptoms on and off in recent past ECG showed SR without acute ST changes on ECG Currently asymptomatic from cardiac viewpoint Start on ASA, B marj and statin and PRN NTG for chest pain Get Lexiscan MPS to rule out obstructive CAD since has risk factor Discussed plan in detail. Questioned encouraged and answered. Voiced understanding 2. HTN Continue medical management 3. Dyslipidemia start atorvastatin 40 mg daily 08/29 CV stable Stress test showed apical infarct otherwise no reversibility Maximize medical therapy If discharged follow up in office in 1 to 2 weeks [facility] 08/31/2023 23:18 Progress Note Patient Name: CATHERINE NG, : 1970, Age: 52 years 08/31/2023 SUBJECTIVE: Doing well no cp Vital Signs: Vital Signs: Last 24 Hours Date/Time BP (mm/Hg) BP Position/Site MAP (mm/Hg) Heart Rate Pulse Site Resp Temp (C) Temp (F) SPO2% O2 L/min FiO2 O2 Device Blood Sugar Pain Score Weight (kg) Weight (lbs/ozs) Scale BSA 08/31/2023 16:21 157/87 Sitting/Left Arm 110 68 Monitor 18 36.7 Temporal 98 Temporal 96 % Room Air 21% 08/31/2023 11:20 134/66 Sitting/Left Arm 89 81 Monitor 15 36.8 Temporal 98.3 Temporal 100 % Room Air 21% 08/31/2023 06:57 144/60 Lying/Left Arm 88 61 Monitor 16 36.6 Temporal 97.8 Temporal 95 % Room Air 21% 08/31/2023 04:10 111/58 Lying/Left Arm 76 67 Brachial 18 36.7 Temporal Scanning 98.1 Temporal Scanning 96 % Room Air 21% 08/30/2023 23:35 126/71 Lying/Left Arm 89 64 Brachial 16 36.8 Temporal Scanning 98.2 Temporal Scanning 93 % Room Air 21% Physical Exam: Constitutional: Appears well-developed and well-nourished. No distress. HENT: Normocephalic and atraumatic. Oropharynx is clear and moist. Eyes: EOM are normal. Pupils are round and equal. Neck: Normal range of motion. Neck supple. No JVD. Cardiovascular: Normal rate. Regular rhythm. Normal heart sounds. Respiratory: Normal effort. No wheeze. No crackles. Gastrointestinal: Soft. Bowel sounds are normal. No distension. No tenderness. Musculoskeletal: Normal range of motion. No edema. No deformity. Extremities: Capillary refill <2 seconds. Normal peripheral pulses. Neurological: Alert & oriented to person, place, and time. No focal motor deficits. Skin: Skin is warm. Normal color. No rash noted. No erythema. Psychiatric: Normal mood and affect. Behavior is normal. LAB: Lab Results: Last 24 Hours Test Results Units Reference Range Ordered Collected Status WBC 8.6 K/uL L=3.5 H=10.3 08/31/2023 07:00 08/31/2023 06:00 final RBC 5.10 M/uL L=4.20 H=6.20 08/31/2023 07:00 08/31/2023 06:00 final HEMOGLOBIN 14.2 g/dL L=13.5 H=17.1 08/31/2023 07:00 08/31/2023 06:00 final HEMATOCRIT 43.1 % L=39.0 H=52.0 08/31/2023 07:00 08/31/2023 06:00 final MCV 84.5 fL L=80.0 H=100 08/31/2023 07:00 08/31/2023 06:00 final MCH 27.8 pg L=26.0 H=34.4 08/31/2023 07:00 08/31/2023 06:00 final MCHC 32.9 g/dL L=31.8 H=36.3 08/31/2023 07:00 08/31/2023 06:00 final RDW 12.4 % L=10.8 H=14.9 08/31/2023 07:00 08/31/2023 06:00 final PLATELETS 252 K/uL L=150 H=500 08/31/2023 07:00 08/31/2023 06:00 final MPV 9.3 fL L=8.1 H=12.4 08/31/2023 07:00 08/31/2023 06:00 final %NEUT 59.3 % L=38.3 H=69.0 08/31/2023 07:00 08/31/2023 06:00 final %LYMPH 25.7 % L=17.5 H=47.9 08/31/2023 07:00 08/31/2023 06:00 final %MONO 11.1 % L=2.0 H=15.0 08/31/2023 07:00 08/31/2023 06:00 final %EOS 3.2 % L=0.0 H=5.0 08/31/2023 07:00 08/31/2023 06:00 final %BASO 0.2 % L=0.0 H=3.0 08/31/2023 07:00 08/31/2023 06:00 final %IG 0.50 % L=0.00 H=1.00 08/31/2023 07:00 08/31/2023 06:00 final #NEUT 5.07 K/uL L=1.20 H=5.30 08/31/2023 07:00 08/31/2023 06:00 final #LYMPH 2.20 K/uL L=0.80 H=2.70 08/31/2023 07:00 08/31/2023 06:00 final #MONO 0.95 H K/uL L=0.10 H=0.60 08/31/2023 07:00 08/31/2023 06:00 final #EOS 0.27 K/uL L=0.00 H=0.30 08/31/2023 07:00 08/31/2023 06:00 final #BASO 0.02 K/uL L=0.00 H=0.10 08/31/2023 07:00 08/31/2023 06:00 final #IG 0.04 L=0.00 H=1.00 08/31/2023 07:00 08/31/2023 06:00 final MANUAL DIFF NOT INDICATED NOT INDICATED 08/31/2023 07:00 08/31/2023 06:00 final RBC MORPH NOT INDICATED NOT INDICATED 08/31/2023 07:00 08/31/2023 06:00 final SMEAR REVIEW NOT INDICATED NOT INDICATED 08/31/2023 07:00 08/31/2023 06:00 final GLUCOSE 94 mg/dL L=74 H=106 08/31/2023 07:00 08/31/2023 06:00 final BUN 16 mg/dL L=9 H=20 08/31/2023 07:00 08/31/2023 06:00 final CREATININE 0.8 mg/dL L=0.6 H=1.2 08/31/2023 07:00 08/31/2023 06:00 final SODIUM 137 mEq/L L=137 H=145 08/31/2023 07:00 08/31/2023 06:00 final POTASSIUM 4.0 mEq/L L=3.5 H=5.1 08/31/2023 07:00 08/31/2023 06:00 final CHLORIDE 109 H mEq/L L=98 H=107 08/31/2023 07:00 08/31/2023 06:00 final CO2 25 mEq/L L=22 H=30 08/31/2023 07:00 08/31/2023 06:00 final BUN/CREAT 20 L=6 H=25 08/31/2023 07:00 08/31/2023 06:00 final ANION GAP 3 L L=5 H=15 08/31/2023 07:00 08/31/2023 06:00 final CALCIUM 8.4 mg/dL L=8.4 H=10.2 08/31/2023 07:00 08/31/2023 06:00 final TOTAL PROTEIN 6.6 g/dL L=6.3 H=8.2 08/31/2023 07:00 08/31/2023 06:00 final ALBUMIN 3.7 g/dL L=3.5 H=5.0 08/31/2023 07:00 08/31/2023 06:00 final GLOBULIN 3 g/dL L=2 H=4 08/31/2023 07:00 08/31/2023 06:00 final A/G RATIO 1.2 L=0.8 H=2.0 08/31/2023 07:00 08/31/2023 06:00 final SGOT/AST 33 IU/L L=15 H=46 08/31/2023 07:00 08/31/2023 06:00 final SGPT/ALTV 30 IU/L L=0 H=50 08/31/2023 07:00 08/31/2023 06:00 final ALKALINE PHOS 80 IU/L L=38 H=126 08/31/2023 07:00 08/31/2023 06:00 final TOTAL BILI 0.4 mg/dL L=0.2 H=1.3 08/31/2023 07:00 08/31/2023 06:00 final AGE 52 yrs 08/31/2023 07:00 08/31/2023 06:00 final NON-AA GFR 101 mL/min 08/31/2023 07:00 08/31/2023 06:00 final AFR AMER GFR 122 mL/min 08/31/2023 07:00 08/31/2023 06:00 final OSMOLALITY 285 mOsm/K L=275 H=295 08/31/2023 07:00 08/31/2023 06:00 final Plan 1. Chest pain Patient has chest pain symptoms with risk factor Patient has these symptoms on and off in recent past ECG showed SR without acute ST changes on ECG Currently asymptomatic from cardiac viewpoint Start on ASA, B marj and statin and PRN NTG for chest pain Get Lexiscan MPS to rule out obstructive CAD since has risk factor Discussed plan in detail. Questioned encouraged and answered. Voiced understanding 2. HTN Continue medical management 3. Dyslipidemia start atorvastatin 40 mg daily 08/29 CV stable Stress test showed apical infarct otherwise no reversibility Maximize medical therapy If discharged follow up in office in 1 to 2 weeks 08/31/23 CV stable stress test with no ischemia continue current medications Tele stable DC home and fup in clinic
--- OUTSIDE RECORDS SUMMARY | 2024-04-09 16:15 | XMS_ITS | Encounter Summary ---
Author Organization [facility] Address [address] [place] [id number] Care Team Providers Care Solutions Architect Name Role Phone Physician, None DO Primary Care Provider Unavail able Reason for Visit * Reason Comments CHEST PAIN * Auth/Cert (Routine) Specialty Diagnoses / Procedures Referred By Kacey t Referred To Contact Diagnoses Chest pain, unspecified type Referral ID Status Reason Start Date Expiration Date Visits Re quested Visits Authorized [id number] 1 1 Encounter Details Date Type Department Care Team ([facility] st Contact Info) Description 03/10/2024 10:00 PM EST - 03/12/2024 6:27 PM EST Emergency [facility] [address] [address] Ara, Sarah, [address] [facility] Department of [place] [address] [place] [address] [place] [address] [place] [address] [place] [address] Chest pain, unspecified type (Primary Dx) Discharge Disposition: Home or Self Care Social History Tobacco Use Types Packs/Day Years Used Date Smoking Tobacco: Every Day Cigarettes Smokeless Tobacco: Current Alcohol Use Standard Drinks/Week Comments Not Currently 0 (1 standard drink = 0.6 oz pur e alcohol) [facility] Utilities Answer Date Recorded In the past 12 months has [employer] electric, gas, oil, or water company threatened to shut off services in your home? No 03/11/2024 Humiliation, Afraid, Rape, and Kick questionnair e Answer Date Recorded Within the last year, have y ou been afraid of your partner or ex-partner? No 03/11/2024 Within the last year, have y ou been humiliated or emotionally abused in other ways by your partner or ex-partner? No Within the last year, have y ou been kicked, hit, slapped, or otherwise physically hurt by your partner or ex-partner? No 03/11/2024 Within the last year, have y ou been raped or forced to have any kind of sexual activity by your partner or ex-partner? No 03/11/2024 AUDIT-C Answer Date Recorded Q1: How often do you have a drink containing alc ohol? Monthly or less 03/11/2024 Q2: How many drinks containi ng alcohol do you have on a typical day when you are drinking? 1 or 2 03/11/2024 Q3: How often do you have si x or more drinks on one occasion? Less than monthly 03/11/2024 Hunger Vital Sign Answer Date Recorded Within the past 12 months, y ou worried that your food would run out before you got the money to buy more. Never true 03/11/20 24 Within the past 12 months, t he food you bought just didn't last and you didn't have money to get more. Never true 03/11/2024 PRAPARE - Transportation Answer Date Re corded In the past 12 months, has l ack of transportation kept you from medical appointments or from getting medications? No 02/26 In the past 12 months, has l ack of transportation kept you from meetings, work, or from getting things needed for daily living? No 03/11/2024 Housing Stability Vital Sign Answer Reed e Recorded In the last 12 months, was t here a time when you were not able to pay the mortgage or rent on time? No 03/11/2024 In the past 12 months, how m any times have you moved where you were living? 1 03/11/2024 At any time in the past 12 m [facility], were you homeless or living in a longterm (including now)? No 03/11/2024 Sex and Gender Information Value Date Recorded Sex Assigned at Not on file Gender Identity Not on file Sexual Orientation Not on file documented as of this encounter Last Filed Vital Signs Vital Sign Reading Time Taken Comments Blood Pressure 96/54 03/12/2024 3:08 PM EST Pulse 55 03/12/2024 3:08 PM EST Temperature 36.4 C (97.5 F) 03/12/2024 3:08 PM EST Respiratory Rate 18 03/12/2024 3:08 PM EST Oxygen Saturation 97% 03/12/2024 3:08 PM EST Inhaled Oxygen Concentration - - Weight 106.6 kg (235 lb 0.2 oz) 03/11/2024 2:03 AM EST Height 177.8 cm (5' 10) 03/11/2024 2: 03 AM EST Body Mass Index 33.72 03/11/2024 2:03 AM EST documented in this encounter Discharge Summaries * Jigar Marques MD - 03/12/2024 6:27 PM EST Images from the original note were not included. Discharge Summary Primary Care Physician: None Physician, DO Admit Date: 03/10/2024 Discharge Date: 03/12/2024 Admitting Physician: Sally Mckinney MD Discharging Physician: Sally Mckinney MD Consultants: Addiction Medicine Physician Admitting Diagnosis(es): Chest pain Discharge Diagnoses: Principal Problem: Chest pain, unspecified type Active Problems: CAD (coronary artery disease) Essential hypertension Moderate mixed hyperlipidemia not requiring statin therapy Anxiety disorder Resolved Problems: * No resolved hospital problems. * Hospital Course: This patient is a 53-year-old gentleman with a past medical history of hypertension hyperlipidemia coronary artery disease status post CABG who presented to the hospital with chest pain EKG shows sinus rhythm with some PAC blood work was reviewed chest x-ray no acute cardiopulmonary process patienthad recently stress test abnormal with a large ischemia and patient underwent cardiac catheterization with successful PTCA/JOSESITO of proximal LAD due to presentation complain patient was seen evaluated by security management specialist to continue with the cardioprotective medication continue with secondary preventive measures keep blood pressure under control follow up with the patient showed improvement presentation discharged home in stable condition follow up primary care physician within 1 week of discharge for evaluation Pertinent Imaging and Procedures: CV NM Stress MPI Pharmacological (East Only) Result Date: 03/12/2024 MYOCARDIAL PERFUSION SCAN CLINICAL HISTORY: Chest pain. COMPARISON: None available TECHNIQUE: Stress and rest SPECT images were obtained. 11.0 mCi of Tc99m Myoview was utilized at rest; 33.0 mCi of Tc99m Myoview was utilized for stress imaging.The images were reviewed on [employer]. Lexiscan was utilized for the stress portion of the examination. FINDINGS: Review of stress and rest SPECTimages reveals no reversible perfusion defect. Diminished counts is noted in the anteroseptal region and apex on both sets of images, more pronounced on rest imaging, likely related to soft tissue attenuation. Gated images demonstrate normal wall motion with an estimated left ventricular ejection fraction of 39%. No transient ischemic dilatation of the left ventricle is noted. 1. No evidence of stress-induced myocardial ischemia. 2. Normal wall motion with left ventricular ejection fraction of 39%. Please correlate with echocardiogram. CV Echo Follow-Up Limited Result Date: 03/12/2024 Version: 1 Study ID: [id number] [facility] Non Invasive Cardiology [address] [place] [address] Adult Echocardiogram Report Name: FABI GARNETT Study Date: 03/11/2024, 10:23 AM Performed By: Bela Odell : 1970 (MM/BELA/YYYY) Age: 53 Years Reason For Study: chest pain, chest pain Gender: Male Patient Location: [address] Ordering Physician: LYNN DECKER: [id number] Electronically signed by: Ruben Matos 03/12/2024, 12:06 PM + Height: 177.8 cm Weight: 106.594 kg BSA: 2.24 m? BP: 119 / 68 mmHg Summary Statements The left ventricular ejection fraction is estimated to be in the normal range at 65%. There is no pericardial effusion. + Procedure: Limited or follow-up transthoracic echocardiogram. Definity contrast was injected to enhance the left ventricular endocardial border. Left Ventricle: The left ventricle is of normal size. There is moderately increased concentric wall thickness. The left ventricular ejection fraction is estimated to be in the normal range at 65%. Right Ventricle: The right ventricle is not well visualized. Pericardium: There is no pericardial effusion. LVIDd: 4.9 cm LVIDs: 2.9 cm IVSd: 1.50 cm LVPWd: 1.46 cm Other Measurements & Calculations LV EF Biplane: 57.6 % CV NM Stress MPI Cardiology Interp Result Date: 03/12/2024 Overall Impression^ Diagnosis^ 1) RESTING ECG: Sinus bradycardia 2) CHARACTERISTIC HR RESPONSE TO STRESS: Appropriate overall HR response to Lexiscan infusion 3) CHARACTERISTIC BP RESPONSE TO STRESS:Appropriate BP response to Lexiscan infusion 4) FUNCTIONAL CAPACITY: Could not be adequately assessed 5) SYMPTOMS: Shortness of breath Headache 6) ST CHANGES: No diagnostic ischemic EKG changes 7) ARRHYTHMIAS: No arrhythmias 8) REASON FOR TERMINATION: Reached protocol end point 9) PROCEDURE RELATED: Lexiscan 0.4 mg/5 mL Patient sent to the nuclear lab OVERALL IMPRESSION: no ekg evidence of ischemia with lexiscan infusion. myocardial perfusion imaging stdy to follow. Confirmed by Celine Riggins ([id number]) on 03/12/2024 11:11:35 AM Chest Single View Result Date: 03/11/2024 CHEST SINGLE VIEW: CLINICAL HISTORY: Chest pain TECHNIQUE: Single frontal view of the chest was obtained. COMPARISON: None FINDINGS: CABG changes. No cardiomegaly or congestion. No focal consolidation to suggest pneumonia. Calcified granuloma right midlung. No sizable pleural effusion or pneumothorax. No acute cardiopulmonary process Your Medications CONTINUE taking these medications albuterol HFA 108 (90 Base) MCG/ACT inhaler Take 2 puffs by inhalation every 4 hours as needed. Commonly known as: PROVENTIL HFA, VENTOLIN HFA, PROAIR HFA ARIPiprazole 10 mg tablet Take 10 mg by mouth daily. Commonly known as: ABILIFY aspirin EC 81 mg enteric coated tablet Take 1 tablet by mouth daily. atorvastatin 80 mg tablet Take 80 mg by mouth nightly. Commonly known as: LIPITOR calcium carbonate 500 mg chewable tablet Chew 1 tablet daily as needed. Commonly known as: Tums carvedilol 12.5 mg tablet Take 1 tablet by mouth every 12 hours. Commonly known as: COREG clopidogrel 75 mg tablet Take 1 tablet by mouth daily. Commonly known as: PLAVIX escitalopram 20 mg tablet Take 20 mg by mouth daily. Commonly known as: LEXAPRO ezetimibe 10 mg tablet Take 10 mg by mouth nightly. Commonly known as: Zetia HYDROcodone-acetaminophen 5-325 mg per tablet Take 1 tablet by mouth every 8 hours as needed for Moderate Pain (pain scale 4- 6) or patient description. Commonly known as: NORCO hydrocortisone 1 % cream Apply 1 Application to skin 2 times daily as needed for Other. Commonly known as: HYTONE losartan 50 mg tablet Take 50 mg by mouth daily. Commonly known as: COZAAR nicotine 21 MG/24HR patch Place 1 patch on the skin daily. Commonly known as: NICODERM CQ nitroglycerin 0.[address] 0.4 mg under the tongue every 5 minutes as needed for Chest pain. Commonly known as: NITROSTAT pantoprazole 40 mg enteric-coated tablet Take 40 mg by mouth daily. Commonly known as: Protonix QUEtiapine 50 mg tablet Take 50 mg by mouth nightly. Commonly known as: Seroquel ranolazine 500 mg 12 hr tablet Take 500 mg by mouth 2 times daily. Commonly known as: RANEXA spironolactone 25 mg tablet Take 1 tablet by mouth daily. Commonly known as: ALDACTONE Discharge Condition: Stable Disposition: Home Additional Discharge Instructions: Diet and Activity as Tolerated. Follow Up: Follow-up Information [facility]. Go to . Specialty: Emergency Medicine Why: As needed, If symptoms worsen Contact information: [address] [facility] [address] Additional information: [address] [place] [address] Jigar Marques MD Pager [phone] [facility] [address] [place], [place] [address] * [facility] Discharge Notification Dr. Bond Physician, DO, Your patient, Catherine Garnett was hospitalized at [facility]. Please see the attached dischargesummary for information pertinent to this hospital stay. Thank you for your support. Please feel free to contact us with questions, concerns or admissions. Our Answering Service phone number is: [phone] Jigar Marques MD I spent 34 minutes spent with discharge, counseling, coordination of care, and correspondence Patient presented to the hospital with chest pain recent cardiac catheterization was done on January 20, 2024 with PTCA/JOSESITO of proximal LAD to continue with the cardioprotective medications continue with aspirin Plavix and statin patient is discharged home in stable condition follow up primary carephysician within 1 week of discharge for evaluation follow up with the consulted as scheduled documented in this encounter Medications at Time of Discharge Medication Sig Dispensed Refills Start Date End Date albuterol HFA (PROVENTIL HFA, VENTOLIN HFA, PROAIR HFA) 108 (90 Base) MCG/ACT inhaler Take 2 puffs by inhalation every 4 hours as needed. 02/26/2023 ARIPiprazole (ABILIFY) 10 mg tablet Take 10 mg by mouth daily. 09/13/2023 aspirin EC 81 mg enteric coated tablet Take 1 tablet by mouth daily. 02/27/2023 atorvastatin (LIPITOR) 80 mg tablet Take 80 mg by mouth nightly. 01/22/2024 calcium carbonate (TUMS) 500 mg chewable tablet Chew 1 tablet daily as needed. carvedilol (COREG) 12.5 mg tablet Take 1 tablet by mouth every 12 hours. 02/26/2023 clopidogrel (PLAVIX) 75 mg tablet Take 1 tablet by mouth daily. 01/22/2024 02/19/2025 escitalopram (LEXAPRO) 20 mg tablet Take 20 mg by mouth daily. 09/13/2023 ezetimibe (ZETIA) 10 mg tablet Take 10 mg by mouth nightly. 11/11/2023 HYDROcodone-acetaminop hen (NORCO) 5-325 mg per tablet Take 1 tablet by mouth every 8 hours as needed for Moderate Pain (pain scale 4-6) or patient description. 01/21/2024 hydrocortisone (HYTONE) 1 % cream Apply 1 Application to skin 2 times daily as needed for Other. 02/26/2023 losartan (COZAAR) 50 mg tablet Take 50 mg by mouth daily. 01/22/2024 nicotine (NICODERM CQ) 21 MG/24HR patch Place 1 patch on the skin daily. nitroglycerin (NITROSTAT) 0.[address] 0.4 mg under the tongue every 5 minutes as needed for Chest pain. 11/11/2023 pantoprazole (PROTONIX) 40 mg enteric-coated tablet Take 40 mg by mouth daily. 02/26/2023 QUEtiapine (SEROQUEL) 50 mg tablet Take 50 mg by mouth nightly. 09/13/2023 ranolazine (RANEXA) 500 mg 12 hr tablet Take 500 mg by mouth 2 times daily. 01/21/2024 spironolactone (ALDACTONE) 25 mg tablet Take 1 tablet by mouth daily. 02/26/2023 documented as of this encounter Progress Notes * Jigar Marques MD - 03/12/2024 6:46 AM EST Images from the original note were not included. PCP: None Physician, DO Assessment: Principal Problem: Chest pain, unspecified type Active Problems: CAD (coronary artery disease) Essential hypertension Moderate mixed hyperlipidemia not requiring statin therapy Anxiety disorder Resolved Problems: * No resolved hospital problems. * Plan: On 03/11/24, chest pain atypical retrosternal tightness radiation to the arm not related to activities, patient has a significant coronary artery disease status post stents/CABG recent cardiac catheterization was done on January 19, 2024 with a stent was placed to proximal LAD, currently troponin within normal limits EKG was reviewed we will continue with the cardioprotective medications aspirin Plavix and statin and follow up with cartilaginous further recommendation for possible cardiac catheterization in case of persistent chest pain On 03/12/24, patient was seen evaluated at bedside, recent vitals reviewed T-max 36.5?? heart rate 68 respiratory rate 16 blood pressure 125/74, cardiac catheterization done on 01/20/2024 with IVUS guided PTCA/JOSESITO of proximal LAD with reductionin stenosis from 90% to 0%. we will continue with the cardioprotective medications follow up with stress test and 2D echo, security management specialist on board Coronary artery disease see above Hypertension blood pressure stable and controlled continue with the current regimen of treatment adjust dose as needed holding parameter deficits sequela pressure less than 110 heart rate 60 Continue with the statin Anxiety disorder no aggressive behavioral continue with the home medication Resume home medication for chronic medical problems DVT and GI prophylaxis per protocol Subjective: Patient seen and examined. Patient had an uneventful night. Currently denying chest pain, shortness of breath, nausea, vomiting, abdominal pain or dizziness. On 03/12/24, patient was seen evaluated at bedside, recent vitals reviewed T-max 36.5?? heart rate 68 respiratory rate 16 blood pressure 125/74, cardiac catheterization done on 01/20/2024 with IVUS guided PTCA/JOSESITO of proximal LAD with reductionin stenosis from 90% to 0%. we will continue with the cardioprotective medications follow up with stress test and 2D echo, security management specialist on board Scheduled Meds: ARIPiprazole 10 mg Oral Daily aspirin 81 mg Oral Daily atorvastatin 80 mg Oral Nightly carvedilol 12.5 mg Oral Q12H clopidogrel 75 mg Oral Daily enoxaparin 40 mg Subcutaneous q24h [facility] escitalopram 20 mg Oral Daily ezetimibe 10 mg Oral Nightly losartan 50 mg Oral Daily nicotine 1 patch Transdermal Daily pantoprazole 40 mg Oral Daily QUEtiapine 50 mg Oral Nightly ranolazine 500 mg Oral BID sodium chloride 0.9% bolus 500 mL Intravenous Once spironolactone 25 mg Oral Daily Continuous Infusions: Objective: VS: BP 125/74 Pulse 68 Temp 36.5 ??C (Oral) Resp 16 Ht 1.778 m (5' 10) Wt 106.6 kg SpO2 97% BMI 33.72 kg/m?? I/O: I/O last 3 completed shifts: In: 300 [P.O.:300] Out: - Gen: No acute distress, alert and oriented Chest: Clear to auscultation bilaterally, no wheezes, rales, or rhonchi CV : Normal S1, S2 Abd: Soft non-tender, non-distended, bowel sounds positive and normoactive Ext: no clubbing, cyanosis or edema. Labs: @RESULTRCNTOAK(24H)@ Imaging: CV NM Stress MPI Cardiology Interp Result Date: 03/12/2024 Overall Impression^ Diagnosis^ 1) RESTING ECG: Sinus bradycardia 2) CHARACTERISTIC HR RESPONSE TO STRESS: Appropriate overall HR response to Lexiscan infusion 3) CHARACTERISTIC BP RESPONSE TO STRESS:Appropriate BP response to Lexiscan infusion 4) FUNCTIONAL CAPACITY: Could not be adequately assessed 5) SYMPTOMS: Shortness of breath Headache 6) ST CHANGES: No diagnostic ischemic EKG changes 7) ARRHYTHMIAS: No arrhythmias 8) REASON FOR TERMINATION: Reached protocol end point 9) PROCEDURE RELATED: Lexiscan 0.4 mg/5 mL Patient sent to the nuclear lab OVERALL IMPRESSION: AGRICULTURAL CONSULTANT: VTE screening VTE Score (If score is <2, patient is not at risk. VTE prophylaxis is not needed):6 ; heparin sq Jigar Marques M.D. Pager [phone] 03/12/2024 * Virginie Pratt OT - 03/11/2024 11:46 AM EST 03/11/24 1146 Required Doc (OT) Document Type discharge note OT Received On 03/11/24 Session Not Performed evaluation not indicated;Per chart review and discussion with interdisciplinary care team, no skilled therapy indicated at this time * Radha Amaral, PT - 03/11/2024 11:20 AM EST 03/11/24 1100 Required Doc (PT) Document Type discharge note Session Not Performed Per chart review and discussion with interdisciplinary care team, no skilled therapy indicated at this time;evaluation not indicated (pt independent per RN) documented in this encounter H&P Notes * Jigar Marques MD - 03/11/2024 7:28 AM EST Images from the original note were not included. Primary Care Physician: None Physician, DO Assessment: Principal Problem: Chest pain, unspecified type Active Problems: CAD (coronary artery disease) Essential hypertension Moderate mixed hyperlipidemia not requiring statin therapy Anxiety disorder Resolved Problems: * No resolved hospital problems. * Plan: Chest pain atypical retrosternal tightness radiation to the arm not related to activities, patient has a significant coronary artery disease status post stents/CABG recent cardiac catheterization wasdone on January 19, 2024 with a stent was placed to proximal LAD, currently troponin within normal limits EKG was reviewed we will continue with the cardioprotective medications aspirin Plavix and statin and follow up with cartilaginous further recommendation for possible cardiac catheterization incase of persistent chest pain Coronary artery disease see above Hypertension blood pressure stable and controlled continue with the current regimen of treatment adjust dose as needed holding parameter deficits sequela pressure less than 110 heart rate 60 Continue with the statin Anxiety disorder no aggressive behavioral continue with the home medication Resume home medication for chronic medical problems DVT and GI prophylaxis per protocol Full Code Chief Complaint: Chief Complaint Patient presents with CHEST PAIN History of Present Illness: This patient is a 53-year-old gentleman with a past medical history of hypertension hyperlipidemia coronary artery disease status post CABG who has chest pain comes and goes became more constant recently, retrosternal tightness with the radiation to left upper extremity and also jaw, recent vitals reviewed T-max 36.1?? heart rate 53 respiratory rate 18 blood pressure 119/68 EKG reviewed sinus rhythm with some PACs, recent blood work sodium 138 potassium 4.2 creatinine 1.03 troponin 0.01 white count 10.3 hemoglobin 14.7 platelets 270, chest x-ray no acute cardiopulmonary process, patient had arecent stress test abnormal with a large ischemia which was done on 01/18/2024 later on patient underwent cardiac catheterization successful PTCA/JOSESITO of proximal LAD, when I saw the patient was in bed denied any headache emesis no blurry vision no difficulty swallowing difficulty hearing no shortness a breath patient reported that initially the chest with the radiation to left upper extremity no abdominal pain no nausea or vomiting no shortness in bowel habits urination habits admit the patientto keep him elevated and follow up with cartilaginous further recommendations Review of systems is complete/comprehensive, as in the HPI, and otherwise unremarkable. Past Medical History: Past Medical History: Diagnosis Date ADHD Anxiety Bipolar disorder (HCC) Essential hypertension, benign High cholesterol Myocardial infarction (HCC) OCD (obsessive compulsive disorder) PTSD (post-traumatic stress disorder) Surgical History: Past Surgical History: Procedure Laterality Date HX ANGIOPLASTY HX OPEN HEART SURGERY Allergies: Allergies Allergen Reactions Statins Myalgia and Unknown Added per MD notation that he cannot tolerate statins for treatment Pollen Unknown Medications prior to admission: Prior to Admission medications Medication Sig Start Date End Date Taking? Authorizing Provider albuterol HFA (PROVENTIL HFA, VENTOLIN HFA, PROAIR HFA) 108 (90 Base) MCG/ACT inhaler Take 2 puffs by inhalation every 4 hours as needed. 02/26/23 Yes Historical Provider ARIPiprazole (ABILIFY) 10 mg tablet Take 10 mg by mouth daily. 09/13/23 Yes Historical Provider aspirin EC 81 mg enteric coated tablet Take 1 tablet by mouth daily. 02/27/23 Yes Historical Provider atorvastatin (LIPITOR) 80 mg tablet Take 80 mg by mouth nightly. 01/22/24 Yes Historical Provider carvedilol (COREG) 12.5 mg tablet Take 1 tablet by mouth every 12 hours. 02/26/23 Yes Historical Provider clopidogrel (PLAVIX) 75 mg tablet Take 1 tablet by mouth daily. 01/22/24 02/19/25 Yes Historical Provider escitalopram (LEXAPRO) 20 mg tablet Take 20 mg by mouth daily. 09/13/23 Yes Historical Provider ezetimibe (ZETIA) 10 mg tablet Take 10 mg by mouth nightly. 11/11/23 Yes Historical Provider HYDROcodone-acetaminophen (NORCO) 5-325 mg per tablet Take 1 tablet by mouth every 8 hours as needed for Moderate Pain (pain scale 4-6) or patient description. 01/21/24 Yes Historical Provider hydrocortisone (HYTONE) 1 % cream Apply 1 Application to skin 2 times daily as needed for Other. 02/26/23 Yes Historical Provider losartan (COZAAR) 50 mg tablet Take 50 mg by mouth daily. 01/22/24 Yes Historical Provider nitroglycerin (NITROSTAT) 0.[address] 0.4 mg under the tongue every 5 minutes asneeded for Chest pain. 11/11/23 Yes Historical Provider pantoprazole (PROTONIX) 40 mg enteric-coated tablet Take 40 mg by mouth daily. 02/26/23 Yes Historical Provider QUEtiapine (SEROQUEL) 50 mg tablet Take 50 mg by mouth nightly. 09/13/23 Yes Historical Provider ranolazine (RANEXA) 500 mg 12 hr tablet Take 500 mg by mouth 2 times daily. 01/21/24 Yes HistoricalProvider spironolactone (ALDACTONE) 25 mg tablet Take 1 tablet by mouth daily. 02/26/23 Yes Historical Provider amLODIPine (NORVASC) 10 mg tablet Take 10 mg by mouth daily. 02/27/23 03/11/24 Historical Provider calcium carbonate (TUMS) 500 mg chewable tablet Chew 1 tablet daily as needed. Historical Provider isosorbide mononitrate ER (IMDUR) 30 mg 24 hr tablet Take 120 mg by mouth every morning. 01/21/24 03/11/24 Historical Provider nicotine (NICODERM CQ) 21 MG/24HR patch Place 1 patch on the skin daily. Historical Provider Social history: reports that he has been smoking cigarettes. He uses smokeless tobacco. He reports that he does notcurrently use alcohol. He reports that he does not currently use drugs. Family History: Reviewed and negative except as above History reviewed. No pertinent family history. Physical Exam: BP 119/68 Pulse 53 Temp 36.1 ??C (Oral) Resp 18 Ht 1.778 m (5' 10) Wt 106.6 kg SpO2 97% BMI 33.72 kg/m?? General: No acute distress. Head/Neck: Conjunctiva not pale. Oral mucosa not particularly dry. Neck supple. Carotids seemingly silent. Respiratory: Lungs clear to auscultation bilaterally. No wheezes, rales, or rhonchi. Cardiovascular: Regular rate and rhythm. No murmurs, rubs or thrills. GI/Abdomen: Soft, Non-tender, non-distended. Bowel sounds positive and normoactive. Extremities: No clubbing, cyanosis, or edema. Neuro: No focal motor or sensory deficits. Language and cognitive skills intact. Psychiatry: Alert and oriented to person, place and time. Mood and affect appropriate to the current circumstance. Lab: Recent Results (from the past 24 hour(s)) Complete Blood Count w/Differential Collection Time: 03/10/24 10:12 PM Result Value Ref Range White Blood Cell 9.9 3.5 - 10.1 x10*9/L Red Blood Cell 5.42 4.31 - 5.48 x10*12/L Hemoglobin 15.4 13.5 - 17.0 g/dL Hematocrit 45.2 40.1 - 50.1 % Mean Cell Volume 83.4 80.0 - 100.0 fL Mean Cell Hemoglobin 28.4 28.0 - 33.0 pg Mean Cell Hemoglobin Concentration 34.1 32.0 - 36.0 g/dL Red Cell Distribution Width 13.1 12.0 - 15.0 % Platelet 278 150 - 400 x10*9/L Mean Platelet Volume 9.4 8.0 - 12.0 fL Neutrophil Automated Absolute 6.13 1.60 - 7.20 x10*9/L Lymphocyte Automated Absolute 2.63 1.10 - 4.00 x10*9/L Monocyte Automated Absolute 0.88 0.00 - 0.90 x10*9/L Eosinophil Automated Absolute 0.21 0.00 - 0.40 x10*9/L Basophil Automated Absolute 0.05 0.00 - 0.10 x10*9/L Immature Granulocyte Automated Absolute 0.04 0.00 - 0.04 x10*9/L Immature Granulocyte Automated 0.4 % NUCLEATED RED BLOOD CELLS AUTOMATED 0.0 <=0.0 % Comprehensive Metabolic Panel (CMP) Collection Time: 03/10/24 10:12 PM Result Value Ref Range Sodium 138 135 - 145 mmol/L Potassium 4.1 3.5 - 5.2 mmol/L Chloride 106 98 - 111 mmol/L Bicarbonate 21 20 - 29 mmol/L Anion Gap 11 5 - 17 mmol/L Glucose 131 (H) 70 - 99 mg/dL Blood Urea Nitrogen (BUN) 19 7 - 25 mg/dL Creatinine 1.00 0.60 - 1.30 mg/dL Calcium 8.9 8.5 - 10.5 mg/dL Protein Total 6.9 6.4 - 8.3 g/dL Albumin 3.6 3.5 - 5.1 g/dL Globulin 3.3 2.2 - 4.0 g/dL Albumin/Globulin Ratio 1.1 Bilirubin Total 0.2 (L) 0.3 - 1.2 mg/dL Alkaline Phosphatase 93 33 - 120 U/L Alanine Aminotransferase (ALT) 32 9 - 47 U/L Aspartate Aminotransferase (AST) 23 <35 U/L eGFR 89 >60 mL/min/1.73 m2 Troponin I ( Lucía, Ham, Tye, and Spangler only ) Collection Time: 03/10/24 10:12 PM Result Value Ref Range Troponin I 0.01 <=0.03 ng/mL Activated Partial Thromboplastin Time (APTT) Collection Time: 03/10/24 10:12 PM Result Value Ref Range Activated Partial Thromboplastin Time 33.6 25.0 - 38.0 seconds Prothrombin Time/INR Collection Time: 03/10/24 10:12 PM Result Value Ref Range Prothrombin Time 11.3 9.2 - 13.5 seconds INR 1.0 Troponin I ( Lucía, Ham, Tye, and Spang[facility] only ) Collection Time: 03/10/24 11:58 PM Result Value Ref Range Troponin I 0.01 <=0.03 ng/mL Troponin I ( Lucía, Ham, Tye, and Spang[facility] only ) Collection Time: 03/11/24 3:38 AM Result Value Ref Range Troponin I 0.01 <=0.03 ng/mL Magnesium, Blood Level Collection Time: 03/11/24 3:38 AM Result Value Ref Range Magnesium 2.0 1.7 - 2.5 mg/dL Renal Function Panel Collection Time: 03/11/24 3:38 AM Result Value Ref Range Sodium 138 135 - 145 mmol/L Potassium 4.2 3.5 - 5.2 mmol/L Chloride 107 98 - 111 mmol/L Bicarbonate 20 20 - 29 mmol/L Anion Gap 11 5 - 17 mmol/L Glucose 108 (H) 70 - 99 mg/dL Blood Urea Nitrogen (BUN) 18 7 - 25 mg/dL Creatinine 1.03 0.60 - 1.30 mg/dL eGFR 86 >60 mL/min/1.73 m2 Calcium 8.8 8.5 - 10.5 mg/dL Albumin 3.7 3.5 - 5.1 g/dL Phosphorus 3.8 2.3 - 4.4 mg/dL Complete Blood Count w/Differential Collection Time: 03/11/24 3:38 AM Result Value Ref Range White Blood Cell 10.3 (H) 3.5 - 10.1 x10*9/L Red Blood Cell 5.18 4.31 - 5.48 x10*12/L Hemoglobin 14.7 13.5 - 17.0 g/dL Hematocrit 43.5 40.1 - 50.1 % Mean Cell Volume 84.0 80.0 - 100.0 fL Mean Cell Hemoglobin 28.4 28.0 - 33.0 pg Mean Cell Hemoglobin Concentration 33.8 32.0 - 36.0 g/dL Red Cell Distribution Width 13.2 12.0 - 15.0 % Platelet 270 150 - 400 x10*9/L Mean Platelet Volume 9.3 8.0 - 12.0 fL Neutrophil Automated Absolute 5.37 1.60 - 7.20 x10*9/L Lymphocyte Automated Absolute 3.44 1.10 - 4.00 x10*9/L Monocyte Automated Absolute 1.06 (H) 0.00 - 0.90 x10*9/L Eosinophil Automated Absolute 0.23 0.00 - 0.40 x10*9/L Basophil Automated Absolute 0.08 0.00 - 0.10 x10*9/L Immature Granulocyte Automated Absolute 0.07 (H) 0.00 - 0.04 x10*9/L Immature Granulocyte Automated 0.7 % NUCLEATED RED BLOOD CELLS AUTOMATED 0.0 <=0.0 % Imaging: Chest Single View Result Date: 03/11/2024 CHEST SINGLE VIEW: CLINICAL HISTORY: Chest pain TECHNIQUE: Single frontal view of the chest was obtained. COMPARISON: None FINDINGS: CABG changes. No cardiomegaly or congestion. No focal consolidation to suggest pneumonia. Calcified granuloma right midlung. No sizable pleural effusion or pneumothorax. No acute cardiopulmonary process EKG: SR with PACs Jigar Marques MD Pgr. [id number] 03/11/2024 [facility] [address] [place], [place] [address] * [email or web address] Admission Notification Dr. None Physician, DO, Your patient, Catherine Garnett was admitted to [facility] on 03/10/2024 10:00 PM. Please see the above Admission History and Physical. Thank you for your support. Please feel free to contact us with questions, concerns or admissions. Our Answering Service phone number is: [phone] Jigar Marques MD documented in this encounter Nursing Notes * Dinora Sun RN - 03/12/2024 5:46 PM EST Discharge order received. IV removed, no complications. Discharge paperwork reviewed with patient. All questions and concerns addressed. Patient taken via wheelchair to main entrance with staff. All belongings taken with patient at time of discharge. * Jennifer Lara RN - 03/12/2024 6:47 AM EST Pt NPO for adelina this am. Pt denies any sob med for chest pain. Continue to monitor pt * Aura Rebollar RN - 03/11/2024 6:23 AM EST Aide walked into pt room and threw away empty cup at bedside, Pt became angry stating I'm just going to drink out of the facet anyway RN went to talk to pt and explain the risks of drinking water if needing any type of procedure. Pt also complaining of pain in chest/neck stated that the norco didnot help and he needs something more for pain. RN called Dr. Maxwell and received a telephone readback order for morphine 2 mg Q6 PRN. * Aura Rebollar RN - 03/11/2024 2:01 AM EST Pt arrived from ED to room 209 A&Ox4 call light in reach bed locked and in lowest position, tele monitor placed on ([id number]) 4 eyes skin assessment done with josé luis jay. Admission questions and home meds gone over with pt. Pt aware of npo status for cardiac consult documented in this encounter ED Notes * Lynn Decker, DO - 03/10/2024 10:19 PM EST [facility] Emergency 03/10/2024 CHIEF COMPLAINT: CHEST PAIN Code Status: Current Code Status Date Active Code Status Order Comments User Context Not on file HISTORY OF PRESENT ILLNESS: Patient is a 53-year-old male who presents complaining of chest pain that radiates down his left arm. Patient has a history of a CABG 2 years ago and a stent placed 2 months ago. 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 States that this feels similar to when he needed a stent placed previously. Admits to some nausea. Denies any shortness of breath, fever, chills, cough or congestion. Denies any abdominal pain or back pain. Denies any leg pain or leg swelling. Denies any history of DVT or PE. He does take daily aspirin but did not take a full dose today. Aspirin ordered. He also has not yet had nitroglycerin. History provided by: Patient REVIEW OF SYSTEMS Review of Systems Constitutional: Negative for fever. Eyes: Negative for eye discharge and visual disturbance. Respiratory: Negative for cough and shortness of breath. Cardiovascular: Positive for chest pain. Negative for palpitations. Gastrointestinal: Positive for nausea. Negative for vomiting, abdominal pain and diarrhea. Genitourinary: Negative for dysuria. Musculoskeletal: Negative for joint pain and muscle pain. Neurological: Negative for headaches and loss of consciousness. Endo/Heme/Allergy: Negative for easy bleeding or bruising. Skin: Negative for rash. PAST MEDICAL HISTORY No Known Allergies Past Medical History: Diagnosis Date ADHD Anxiety Bipolar disorder (HCC) Essential hypertension, benign High cholesterol Myocardial infarction (HCC) OCD (obsessive compulsive disorder) PTSD (post-traumatic stress disorder) Past Surgical History: Procedure Laterality Date HX ANGIOPLASTY HX OPEN HEART SURGERY Social History: reports that he has been smoking cigarettes. He uses smokeless tobacco. reports that he does not currently use alcohol. reports that he does not currently use drugs. No family history on file. ED Triage Vitals [03/10/24 2249] Temperature Pulse Respirations BP SpO2 36.7 ??C 72 23 167/72 97 % Temp src Heart Rate source Patient Position BP Location FIO2 (%) Oral Monitor -- Left arm -- Physical Exam Vitals and nursing note reviewed. Constitutional: Appearance: Normal appearance. HENT: Head: Normocephalic and atraumatic. Right Ear: Tympanic membrane normal. Left Ear: Tympanic membrane normal. Nose: Nose normal. Mouth/Throat: Mouth: Mucous membranes are dry. Eyes: Extraocular Movements: Extraocular movements intact. Pupils: Pupils are equal, round, and reactive to light. Cardiovascular: Rate and Rhythm: Normal rate and regular rhythm. Pulmonary: Effort: Pulmonary effort is normal. Breath sounds: Normal breath sounds. Abdominal: General: Abdomen is flat. There is no distension. Tenderness: There is no abdominal tenderness. Musculoskeletal: General: No swelling or tenderness. Cervical back: Normal range of motion and neck supple. Skin: General: Skin is warm and dry. Capillary Refill: Capillary refill takes less than 2 seconds. Neurological: General: No focal deficit present. Mental Status: He is alert. Mental status is at baseline. Sensory: No sensory deficit. Motor: No weakness. Psychiatric: Mood and Affect: Mood normal. RESULTS: MEDICAL DECISION MAKING Patient Presentation: The patient presents for: Chief Complaint Patient presents with CHEST PAIN Vitals: Vital signs reviewed and interpreted by myself: Vitals: 03/10/24 2249 03/10/24 2333 03/11/24 0034 03/11/24 0102 BP: 167/72 (!) 169/122 (!) 182/116 172/78 Pulse: 72 67 73 67 Resp: 23 17 22 20 Temp: 36.7 ??C TempSrc: Oral SpO2: 97% 98% 97% 97% Weight: Height: Independent Clinical Historians: The following independent historians were utilized: None Past medical history and electronic medical records: [facility] chart reviewed for past pertinent information The following external notes were reviewed: Prior documentation and encounters found in Care Everywhere, Outpatient medical records from outpatient providers, Prior Encounters, Prior Labs, and Prior Imaging Chronic conditions that may be adversely affecting patient's current condition: Past Medical History: Diagnosis Date ADHD Anxiety Bipolar disorder (HCC) Essential hypertension, benign High cholesterol Myocardial infarction (HCC) OCD (obsessive compulsive disorder) PTSD (post-traumatic stress disorder) Amount and/or Complexity of Data Reviewed: Analysis and Interpretations: EKG Reviewed: The EKG was interpreted by myself as follows: ECG Results None EKG 12-lead EKG was performed and interpreted by me. Rate is 78. Rhythm is regular. [place] is Normal ST segments: normal. T waves: normal Final interpretation: sinus rhythm with sinus arrhythmia, no signs of ischemia no infarction. Sinus with PACs The following Guidelines were used during patients work up: HEART score: History Highly suspicious +2 Moderately suspicious +1 Slightly suspicious [address]-depression +2 Non specific repolarisation disturbance +1 Normal 0 Age >= 65 +2 45-65 +1 < 45 0 Risk Factors Risk factors include: Hypercholesterolemia Hypertension Diabetes Mellitus Cigarette smoking Positive family history Obesity >= 3 risk factors or history of atherosclerotic disease +2 1-2 risk factors +1 No risk factors known 0 Troponin >= 3 normal limit +2 1-3?? normal limit +1 <= normal limit 0 SCORE: 4 0 points Low Score (0-3 points), risk of MACE of 0.9-1.7%. 4-6 points Moderate Score (4-6 points), risk of MACE of 12-16.6%. MIPS Guidelines Utilized: none IV established and labs obtained. Labs: The following laboratory tests were ordered, reviewed, and interpreted by myself: Labs Reviewed COMPREHENSIVE METABOLIC PANEL - Abnormal Result Value Sodium 138 Potassium 4.1 Chloride 106 Bicarbonate 21 Anion Gap 11 Glucose 131 (*) Blood Urea Nitrogen (BUN) 19 Creatinine 1.00 Calcium 8.9 Protein Total 6.9 Albumin 3.6 Globulin 3.3 Albumin/Globulin Ratio 1.1 Bilirubin Total 0.2 (*) Alkaline Phosphatase 93 Alanine Aminotransferase (ALT) 32 Aspartate Aminotransferase (AST) 23 eGFR 89 TROPONIN I - Normal Troponin I 0.01 TROPONIN I - Normal Troponin I 0.01 APTT - Normal Activated Partial Thromboplastin Time 33.6 PROTIME-INR - Normal Prothrombin Time 11.3 INR 1.0 COMPLETE BLOOD COUNT (CBC) W/DIFFERENTIAL White Blood Cell 9.9 Red Blood Cell 5.42 Hemoglobin 15.4 Hematocrit 45.2 Mean Cell Volume 83.4 Mean Cell Hemoglobin 28.4 Mean Cell Hemoglobin Concentration 34.1 Red Cell Distribution Width 13.1 Platelet 278 Mean Platelet Volume 9.4 Neutrophil Automated Absolute 6.13 Lymphocyte Automated Absolute 2.63 Monocyte Automated Absolute 0.88 Eosinophil Automated Absolute 0.21 Basophil Automated Absolute 0.05 Immature Granulocyte Automated Absolute 0.04 Immature Granulocyte Automated 0.4 NUCLEATED RED BLOOD CELLS AUTOMATED 0.0 URINALYSIS WITH MICROSCOPIC TROPONIN I Imaging: The following imaging tests were ordered, reviewed and interpreted by Radiology, and also independently reviewed and interpreted by myself: Results for orders placed or performed during the hospital encounter of 03/10/24 DR Cespedes Single View Narrative CHEST SINGLE VIEW: CLINICAL HISTORY: Chest pain TECHNIQUE: Single frontal view of the chest was obtained. COMPARISON: None FINDINGS: CABG changes. No cardiomegaly or congestion. No focal consolidation to suggest pneumonia. Calcified granuloma right midlung. No sizable pleural effusion or pneumothorax. Impression No acute cardiopulmonary process Medications: The following medications were provided, which may have required intensive monitoring: Medications sodium chloride flush 0.9 % syringe 3 mL (has no administration in time range) sodium chloride 0.9% bolus injection 500 mL (0 mL Intravenous Hold 03/10/247) nitroglycerin (NITROSTAT) sublingual tablet 0.4 mg (0.4 mg Sublingual Given 03/10/245) morphine injection 4 mg (4 mg Intravenous Given 03/10/246) aspirin tablet 325 mg (325 mg Oral Given 03/10/242354) Patient re-evaluated. All findings were reviewed and discussed with the patient/family/guardian, per my usual practices at great length. Diagnosis / Treatment was significantly limited by: None Progress: Stable Procedures Critical Care Time Medical Decision Making Patient is a 53-year-old male with a history of a CABG and previous stent who presents complaining of chest pain that radiates down his arm. Patient's pain has been ongoing over the last day. Vital signs stable on arrival. Patient is not tachypneic or tachycardic. Doubt PE at this time. Troponin negative, EKG shows normal sinus rhythm with PACs. Doubt ACS at this time. Chest x-ray negative for acute process. Doubt pneumothorax. Suspect symptoms secondary to angina. Patient was given aspirin. He was also given morphine and nitroglycerin. Patient will be placed in observation due to high risk heart score as well as continued intermittent pain. Spoke with on-call physician, Dr. Maxwell who accep ts. Consult placed to cardiology. Echo ordered. Amount and/or Complexity of Data Reviewed Labs: ordered. Radiology: ordered. ECG/medicine tests: ordered. Risk OTC drugs. Prescription drug management. Decision regarding hospitalization. Smoking Cessation Counseling: The patient was counseled as to the multiple risks to her health fromthe continued use of tobacco products. It was explained that continuing to smoke may lead to multiple short and fci negative health consequences, including but not limited to mouth/esophageal/lung cancer, COPD, and heart disease. She states she understands these risks and also understands theoptions and resources available to her to help her stop smoking. Nicotine replacement therapy, local hotlines, and local resources were discussed as viable options for helping her stop her tobacco use. The total time spent counseling the patient regarding tobacco cessation was 3 minutes. and Hyperte nsion Counseling: I have explained to the patient that their blood pressure was high at least once during their ER visit. I encouraged the patient to follow up with their PCP for monitoring and possible treatment initiation or changes. They were advised to call 911 if patient has chest pain, sob, vision ,changes, or headaches as it may relate to their hypertension. There are no signs of end organdamage on this patient at this time Diagnosis: Diagnosis Diagnosis Comment Chest pain, unspecified type PCP: None Physician, DO Comments: Disposition: Plan to admit the patient. The patient's presenting condition and current diagnosis requires hospitalization for further workup and treatment. Using shared decision making with the patient, at this point the patient prefers hospitalization for further workup and treatment. Home medications were reviewed by myself and no changes will be made at this time, and will be deferred to the admitting service. The case was discussed with Dr Maxwell, who agrees to admit the patient. Consults placed to Cardiology Electronically Signed By: the documenting clinician This dictation was prepared using [employer] voice recognition software. As a result, errors may have occurred. When identified, these errors have been corrected. While every attempt is made to correct errors during dictation, errors may still exist. Lynn Decker DO 03/11/24 0139 documented in this encounter Miscellaneous Notes * Plan of Care - Dinora Sun RN - 03/12/2024 8:00 AM EST Problem: Adult Inpatient Plan of Care Goal: Plan of Care Review Outcome: Progressing Goal: Patient-Specific Goal (Individualized) Outcome: Progressing Goal: Absence of Hospital-Acquired Illness or Injury Outcome: Progressing Goal: Optimal Comfort and Wellbeing Outcome: Progressing Goal: Readiness for Transition of Care Outcome: Progressing Problem: Chest Pain Goal: Resolution of Chest Pain Symptoms Outcome: Progressing Goal Outcome Evaluation: * Plan of Care - Jennifer Lara RN - 03/12/2024 1:28 AM EST Problem: Chest Pain Goal: Resolution of Chest Pain Symptoms Outcome: Progressing Goal Outcome Evaluation: * Plan of Care - Maria De Jesus Underwood RN - 03/11/2024 7:17 AM EST Problem: Adult Inpatient Plan of Care Goal: Plan of Care Review Outcome: Progressing Goal: Patient-Specific Goal (Individualized) Outcome: Progressing Goal: Absence of Hospital-Acquired Illness or Injury Outcome: Progressing Goal: Optimal Comfort and Wellbeing Outcome: Progressing Goal: Readiness for Transition of Care Outcome: Progressing Goal Outcome Evaluation: * Plan of Care - Aura Rebollar RN - 03/11/2024 2:15 AM EST Problem: Adult Inpatient Plan of Care Goal: Plan of Care Review Outcome: Progressing Goal: Patient-Specific Goal (Individualized) Outcome: Progressing Goal: Absence of Hospital-Acquired Illness or Injury Outcome: Progressing Goal: Optimal Comfort and Wellbeing Outcome: Progressing Goal: Readiness for Transition of Care Outcome: Progressing Problem: Chest Pain Goal: Resolution of Chest Pain Symptoms Outcome: Progressing Goal Outcome Evaluation: * ED Nurse Note - Kaye Gutierrez RN - 03/11/2024 1:40 AM EST Report called to Aj dean RN. VSS. Pt to be transported to room 209. documented in this encounter Plan of Treatment Not on file documented as of this encounter Procedures Procedure Name Priority Date/Time Associated Diagnosis Comments CV NM STRESS CARDIOLOGY INTERP Routine 03/12/2024 10:35 AM EST Chest pain, unspecified type CV NM MYOCARDIAL PERFUSION REST AND STRESS, REGADENOSON Routine 03/12/2024 10:35 AM EST Chest pain, unspecified type COMPLETE BLOOD COUNT (CBC) W/DIFFERENTIAL Routine 03/12/2024 10:30 AM EST MAGNESIUM Routine 03/12/2024 10:30 AM EST RENAL FUNCTION PANEL Routine 03/12/2024 10:30 AM EST CV ECHO LIMITED WITH CONTRAST, LIMITED DOPPLER, AND COLOR FLOW Routine 03/11/2024 10:45 AM EST Chest pain, unspecified type EJECTION FRACTION ECHO 10:23 AM EST ELECTROCARDIOGRAM, COMPLETE STAT 03/11/2024 4:50 AM EST TROPONIN I Timed 03/11/2024 3:38 AM EST COMPLETE BLOOD COUNT (CBC) W/DIFFERENTIAL Routine 03/11/2024 3:38 AM EST MAGNESIUM Routine 03/11/2024 3:38 AM EST RENAL FUNCTION PANEL Routine 03/11/2024 3:[address] CESPEDES SINGLE VIEW STAT 03/11/2024 12:20 AM EST TROPONIN I Timed 03/10/2024 11:58 PM EST TROPONIN I Timed 03/10/2024 10:12 PM EST APTT STAT 03/10/2024 10:12 PM EST PROTIME-INR STAT 03/10/2024 10:12 PM EST COMPLETE BLOOD COUNT (CBC) W/DIFFERENTIAL STAT 03/10/2024 10:12 PM EST COMPREHENSIVE METABOLIC PANEL STAT 03/10/2024 10:12 PM EST ELECTROCARDIOGRAM, COMPLETE Routine 03/10/2024 10:04 PM EST documented in this encounter Results * CV NM Stress MPI Cardiology Interp (03/12/2024 10:35 AM EST) Anatomical Region Laterality Modality Chest Nuclear Medicine 03/12/2024 9:28 AM EST Narrative 03/12/2024 11:11 AM EST Overall Impression^ Diagnosis^ 1) RESTING ECG: Sinus bradycardia 2) CHARACTERISTIC HR RESPONSE TO STRESS: Appropriate overall HR response to Lexiscan infusion 3) CHARACTERISTIC BP RESPONSE TO STRESS: Appropriate BP response to Lexiscan infusion 4) FUNCTIONAL CAPACITY: Could not be adequately assessed 5) SYMPTOMS: Shortness of breath Headache 6) ST CHANGES: No diagnostic ischemic EKG changes 7) ARRHYTHMIAS: No arrhythmias 8) REASON FOR TERMINATION: Reached protocol end point 9) PROCEDURE RELATED: Lexiscan 0.4 mg/5 mL Patient sent to the nuclear lab OVERALL IMPRESSION: no ekg evidence of ischemia with lexiscan infusion. myocardial perfusion imaging stdy to follow. Confirmed by Celine Riggins ([id number]) on 03/12/2024 11:11:35 AM Procedure Note Celine Riggins MD - 03/12/2024 Overall Impression^ Diagnosis^ 1) RESTING ECG: Sinus bradycardia 2) CHARACTERISTIC HR RESPONSE TO STRESS: Appropriate overall HRresponse to Lexiscan infusion 3) CHARACTERISTIC BP RESPONSE TO STRESS: Appropriate BP response toLexiscan infusion 4) FUNCTIONAL CAPACITY: Could not be adequately assessed 5) SYMPTOMS: Shortness of breath Headache 6) ST CHANGES: No diagnostic ischemic EKG changes 7) ARRHYTHMIAS: No arrhythmias 8) REASON FOR TERMINATION: Reached protocol end point 9) PROCEDURE RELATED: Lexiscan 0.4 mg/5 mL Patient sent to the nuclearlab OVERALL IMPRESSION: no ekg evidence of ischemia with lexiscan infusion. myocardial perfusion imaging stdy to follow. Confirmed by Celine Riggins ([id number]) on 03/12/2024 11:11:35 AM [facility] CV STRESS ORDERABLES * CV NM MYOCARDIAL PERFUSION REST AND STRESS, REGADENOSON (03/12/2024 10:35 AM EST) Anatomical Region Laterality Modality Chest Nuclear Medicine 03/12/2024 12:0 5 PM EST Impressions 03/12/2024 12:21 PM EST 1. No evidence of stress-induced myocardial ischemia. 2. Normal wall motion with left ventricular ejection fraction of 39%. Please correlate with echocardiogram. Narrative 03/12/2024 12:21 PM EST MYOCARDIAL PERFUSION SCAN CLINICAL HISTORY: Chest pain. COMPARISON: None available TECHNIQUE: Stress and rest SPECT images were obtained. 11.0 mCi of Tc99m Myoview was utilized at rest; 33.0 mCi of Tc99m Myoview was utilized for stress imaging.The images were reviewed on [employer] Portal. Lexiscan was utilized for the stress portion of the examination. FINDINGS: Review of stress and rest SPECT images reveals no reversible perfusion defect. Diminished counts is noted in the anteroseptal region and apex on both sets of images, more pronounced on rest imaging, likely related to soft tissue attenuation. Gated images demonstrate normal wall motion with an estimated left ventricular ejection fraction of 39%. No transient ischemic dilatation of the left ventricle is noted. Procedure Note Jaiden Floyd MD - 03/12/2024 MYOCARDIAL PERFUSION SCAN CLINICAL HISTORY: Chest pain. COMPARISON: None available TECHNIQUE: Stress and rest SPECT images were obtained. 11.0 mCi [id number] Myoview was utilized at rest; 33.0 mCi of Tc99m Myoview was utilized for stress imaging.The images were reviewed on [employer] Portal. Lexiscan was utilized for the stress portion of the examination. FINDINGS: Review of stress and rest SPECT images reveals no reversible perfusion defect. Diminished counts is noted in the anteroseptal regionand apex on both sets of images, more pronounced on rest imaging, likelyrelated to soft tissue attenuation. Gated images demonstrate normal wall motionwith an estimated left ventricular ejection fraction of 39%. No transientischemic dilatation of the left ventricle is noted. IMPRESSION: 1. No evidence of stress-induced myocardial ischemia. 2. Normal wall motion with left ventricular ejection fraction of 39%.Please correlate with echocardiogram. [facility] ORDERABLES * (ABNORMAL) Complete Blood Count w/Differential (03/12/2024 10:30 AM EST) White Blood Cell 8.4 3.5 - 10.1 x10*9/L 03/12/2024 11:13 AM [facility] Red Blood Cell 5.41 4.31 - 5.48 x10*12/L 03/12/2024 11:13 AM [facility] Hemoglobin 15.0 13.5 - 17.0 g/dL 03/12/2024 11:13 AM [facility] Hematocrit 46.9 40.1 - 50.1 % 03/12/2024 11:13 AM [facility] Mean Cell Volume 86.7 80.0 - 100.0 fL 03/12/2024 11:13 AM [facility] Mean Cell Hemoglobin 27.7(L) 28.0 - 33.0 pg 03/12/2024 11:13 AM [facility] Mean Cell Hemoglobin Concentration 32.0 32.0 - 36.0 g/dL 03/12/2024 11:13 AM [facility] Red Cell Distribution Width 13.1 12.0 - 15.0 % 03/12/2024 11:13 AM [facility] Platelet 253 150 - 400 x10*9/L 03/12/2024 11:13 AM [facility] Mean Platelet Volume 9.7 8.0 - 12.0 fL 03/12/2024 11:13 AM [facility] Neutrophil Automated Absolute 5.47 1.60 - 7.20 x10*9/L 03/12/2024 11:13 AM EST [facility] Lymphocyte Automated Absolute 1.95 1.10 - 4.00 x10*9/L 03/12/2024 11:13 AM EST [facility] Monocyte Automated Absolute 0.76 0.00 - 0.90 x10*9/L 03/12/2024 11:13 AM EST [facility] Eosinophil Automated Absolute 0.15 0.00 - 0.40 x10*9/L 03/12/2024 11:13 AM EST [facility] Basophil Automated Absolute 0.06 0.00 - 0.10 x10*9/L 03/12/2024 11:13 AM [facility] Immature Granulocyte Automated Absolute 0.04 0.00 - 0.04 x10*9/L 03/12/2024 11:13 AM [facility] Immature Granulocyte Automated 0.5 % 03/12/2024 11:13 AM [facility] NUCLEATED RED BLOOD CELLS AUTOMATED 0.0 <=0.0 % 03/12/2024 11:13 AM [facility] Blood VENOUS BLOOD SPECIMEN / Unknown Venipuncture / Unknown 03/12/2024 10:30 AM EST 03/12/2024 11:05 AM EST Francois Mota DO LAB BLOOD ORDERABLES [facility] [address] [place] [address] * Renal Function Panel (03/12/2024 10:30 AM EST) Sodium 137 135 - 145 mmol/L 03/12/2024 11:40 AM EST [facility] Potassium 4.4 3.5 - 5.2 mmol/L 03/12/2024 11:40 AM EST [facility] Chloride 105 98 - 111 mmol/L 03/12/2024 11:40 AM EST [facility] Bicarbonate 23 20 - 29 mmol/L 03/12/2024 11:40 AM EST [facility] Anion Gap 9 5 - 17 mmol/L 03/12/2024 11:40 AM EST [facility] Glucose 77 70 - 99 mg/dL 03/12/2024 11:40 AM EST [facility] Blood Urea Nitrogen (BUN) 20 7 - 25 mg/dL 03/12/2024 11:40 AM EST [facility] Creatinine 0.92 0.60 - 1.30 mg/dL 03/12/2024 11:40 AM EST [facility] eGFR 98 >60 mL/min/1.7 3 m2 03/12/2024 11:40 AM EST [facility] Comment: Calculation based on the Chronic Kidney Disease Epidemiology Collaboration (CKD- EPI) equation refit without adjustment for race. Glomerular Filtration Rate is estimated from serum creatinine, age and gender using the CKD-EPI equation. CKD-EPI eGFR is best used for detection of chronic kidney disease in clinically Stable patients. DO NOT USE VALUES FROM THIS EQUATION FOR DRUG DOSING. It has not yet been validated for drug dosing or for patients with rapidly changing clinical situations (inpatient care). Calcium 9.1 8.5 - 10.5 mg/dL 03/12/2024 11:40 AM EST [facility] Albumin 3.8 3.5 - 5.1 g/dL 03/12/2024 11:40 AM EST [facility] Phosphorus 3.4 2.3 - 4.4 mg/dL 03/12/2024 11:40 AM EST [facility] Blood VENOUS BLOOD SPECIMEN / Unknown Venipuncture / Unknown 03/12/2024 10:30 AM EST 03/12/2024 11:05 AM EST Francois Mota DO LAB BLOOD ORDERABLES [facility] [address] [place] [address] * Magnesium, Blood Level (03/12/2024 10:30 AM EST) Magnesium 2.1 1.7 - 2.5 mg/dL 03/12/2024 11:40 AM EST [facility] Blood VENOUS BLOOD SPECIMEN / Unknown Venipuncture / Unknown 03/12/2024 10:30 AM EST 03/12/2024 11:05 AM EST Francois Mota DO LAB BLOOD ORDERABLES [facility] [address] [place] [address] * CV ECHO LIMITED WITH CONTRAST, LIMITED DOPPLER, AND COLOR FLOW (03/11/2024 10:45 AM EST) EJECTION FRACTION ECHO 65 % [facility] Anatomical Region Laterality Modality Chest Other 03/11/2024 10:2 3 AM EST Narrative 03/12/2024 12:06 PM EST Version: 1 Study ID: [id number] [facility] Non Invasive Cardiology [address] [place] [id number] Adult Echocardiogram Report Name: CATHERINE GARNETT Study Date: 03/11/2024, 10:23 AM Performed By: Bela Odell : 1970 (MM/DD/YYYY) Age: 53 Years Reason For Study: chest pain, chest pain Gender: Male Patient Location: [place] [address] Ordering Physician: LYNN DECKER: [id number] Electronically signed by: Ruben Matos 03/12/2024, 12:06 PM + Height: 177.8 cm Weight: 106.594 kg BSA: 2.24 m BP: 119 / 68 mmHg Summary Statements The left ventricular ejection fraction is estimated to be in the normal range at 65%. There is no pericardial effusion. + Procedure: Limited or follow-up transthoracic echocardiogram. Definity contrast was injected to enhance the left ventricular endocardial border. Left Ventricle: The left ventricle is of normal size. There is moderately increased concentric wall thickness. The left ventricular ejection fraction is estimated to be in the normal range at 65%. Right Ventricle: The right ventricle is not well visualized. Pericardium: There is no pericardial effusion. LVIDd: 4.9 cm LVIDs: 2.9 cm IVSd: 1.50 cm LVPWd: 1.46 cm Other Measurements & Calculations LV EF Biplane: 57.6 % Procedure Note Ruben Matos MD - 03/12/2024 Version: 1 Study ID: [id number] [facility] Non Invasive Cardiology [address] [place] [address] Adult Echocardiogram Report Name: CATHERINE GARNETT Study Date: 03/11/2024, 10:23 AM Performed By: Bela Odell : 1970 (MM/BELA/YYYY) Age: 53 Years Reason For Study: chest pain, chest pain Gender: Male Patient Location: [place] [address] [place] [address] Ordering Physician: LYNN DECKER: [id number] Electronically signed by: Ruben Hung05/13/2023, 12:06 PM + Height: 177.8 cm Weight: 106.594 kg BSA: 2.24 m BP: 119 / 68 mmHg Summary Statements The left ventricular ejection fraction is estimated to be in thenormal range at 65%. There is no pericardial effusion. + Procedure: Limited or follow-up transthoracic echocardiogram. Definity contrastwas injected to enhance the left ventricular endocardial border. Left Ventricle: The left ventricle is of normal size. There is moderately increased concentric wall thickness. The left ventricular ejection fraction is estimated to be in thenormal range at 65%. Right Ventricle: The right ventricle is not well visualized. Pericardium: There is no pericardial effusion. LVIDd: 4.9 cm LVIDs: 2.9 cm IVSd: 1.50 cm LVPWd: 1.46 cm Other Measurements & Calculations LV EF Biplane: 57.6 % Lynn Ara RICE [facility] ORDERABLES * EJECTION FRACTION ECHO (03/11/2024 10:23 AM EST) Pathologist [facility] EJECTION FRACTION ECHO 65 % [facility] Anatomical Region Laterality Modality Other 03/11/2024 10:2 3 AM EST Generic Addiction Medicine Physician [facility] EJECTION FRAC TION * Electrocardiogram, Complete (03/11/2024 4:50 AM EST) 03/11/2024 4:50 AM EST 03/11/2024 2:00 PM EST Narrative [facility] - 03/11/2024 2:00 PM EST Ventricular Rate 70 BPM Atrial Rate 70 BPM P-R Interval 144 ms QRS Duration 86 ms Q-T Interval 396 ms QTC Calculation(Bazett) 427 ms Calculated P [employer] 57 degrees Calculated R [employer] 3 degrees Calculated T [employer] 80 degrees Diagnosis Sinus rhythm with Premature atrial complexes Otherwise normal ECG When compared with ECG of 10-MAR-2024 22:04, MANUAL COMPARISON REQUIRED, DATA IS UNCONFIRMED Confirmed by Lynn Decker ([id number]) on 03/11/2024 2:00:54 PM Procedure Note Lynn Decker DO - 03/11/2024 Ventricular Rate 70 BPM Atrial Rate 70 BPM P-R Interval 144 ms QRS Duration 86 ms Q-T Interval 396 ms QTC Calculation(Bazett) 427 ms Calculated P [employer] 57 degrees Calculated R [employer] 3 degrees Calculated T [employer] 80 degrees Diagnosis Sinus rhythm with Premature atrial complexes Otherwise normal ECG When compared with ECG of 10-MAR-2024 22:04, MANUAL COMPARISON REQUIRED, DATA IS UNCONFIRMED Confirmed by Lynn Decker ([id number]) on 03/11/2024 2:00:54 PM Lynn Decker DO ECG ORDERABLES [facility] * (ABNORMAL) Complete Blood Count w/Differential (03/11/2024 3:38 AM EST) White Blood Cell 10.3(H) 3.5 - 10.1 x10*9/L 03/11/2024 4:12 AM EST [facility] Red Blood Cell 5.18 4.31 - 5.48 x10*12/L 03/11/2024 4:12 AM EST [facility] Hemoglobin 14.7 13.5 - 17.0 g/dL 03/11/2024 4:12 AM EST [facility] Hematocrit 43.5 40.1 - 50.1 % 03/11/2024 4:12 AM EST [facility] Mean Cell Volume 84.0 80.0 - 100.0 fL 03/11/2024 4:12 AM EST [facility] Mean Cell Hemoglobin 28.4 28.0 - 33.0 pg 03/11/2024 4:12 AM EST [facility] Mean Cell Hemoglobin Concentration 33.8 32.0 - 36.0 g/dL 03/11/2024 4:12 AM [facility] Red Cell Distribution Width 13.2 12.0 - 15.0 % 03/11/2024 4:12 AM [facility] Platelet 270 150 - 400 x10*9/L 03/11/2024 4:12 AM [facility] Mean Platelet Volume 9.3 8.0 - 12.0 fL 03/11/2024 4:12 AM [facility] Neutrophil Automated Absolute 5.37 1.60 - 7.20 x10*9/L 03/11/2024 4:12 AM [facility] Lymphocyte Automated Absolute 3.44 1.10 - 4.00 x10*9/L 03/11/2024 4:12 AM [facility] Monocyte Automated Absolute 1.06(H) 0.00 - 0.90 x10*9/L 03/11/2024 4:12 AM [facility] Eosinophil Automated Absolute 0.23 0.00 - 0.40 x10*9/L 03/11/2024 4:12 AM [facility] Basophil Automated Absolute 0.08 0.00 - 0.10 x10*9/L 03/11/2024 4:12 AM [facility] Immature Granulocyte Automated Absolute 0.07(H) 0.00 - 0.04 x10*9/L 03/11/2024 4:12 AM [facility] Immature Granulocyte Automated 0.7 % 03/11/2024 4:12 AM [facility] NUCLEATED RED BLOOD CELLS AUTOMATED 0.0 <=0.0 % 03/11/2024 4:12 AM [facility] Blood VENOUS BLOOD SPECIMEN / Unknown Venipuncture / Unknown 03/11/2024 3:38 AM EST 03/11/2024 4:09 AM EST Francois Mota DO LAB BLOOD ORDERABLES [facility] [address] [place] [address] * (ABNORMAL) Renal Function Panel (03/11/2024 3:38 AM EST) Sodium 138 135 - 145 mmol/L 03/11/2024 4:42 AM [facility] Potassium 4.2 3.5 - 5.2 mmol/L 03/11/2024 4:42 AM [facility] Chloride 107 98 - 111 mmol/L 03/11/2024 4:42 AM [facility] Bicarbonate 20 20 - 29 mmol/L 03/11/2024 4:42 AM [facility] Anion Gap 11 5 - 17 mmol/L 03/11/2024 4:42 AM [facility] Glucose 108(H) 70 - 99 mg/dL 03/11/2024 4:42 AM [facility] Blood Urea Nitrogen (BUN) 18 7 - 25 mg/dL 03/11/2024 4:42 AM [facility] Creatinine 1.03 0.60 - 1.30 mg/dL 03/11/2024 4:42 AM [facility] eGFR 86 >60 mL/min/1. 73 m2 03/11/2024 4:42 AM [facility] Comment: Calculation based on the Chronic Kidney Disease Epidemiology Collaboration (CKD- EPI) equation refit without adjustment for race. Glomerular Filtration Rate is estimated from serum creatinine, age and gender using the CKD-EPI equation. CKD-EPI eGFR is best used for detection of chronic kidney disease in clinically Stable patients. DO NOT USE VALUES FROM THIS EQUATION FOR DRUG DOSING. It has not yet been validated for drug dosing or for patients with rapidly changing clinical situations (inpatient care). Calcium 8.8 8.5 - 10.5 mg/dL 03/11/2024 4:42 AM [facility] Albumin 3.7 3.5 - 5.1 g/dL 03/11/2024 4:42 AM [facility] Phosphorus 3.8 2.3 - 4.4 mg/dL 03/11/2024 4:42 AM [facility] Blood VENOUS BLOOD SPECIMEN / Unknown Venipuncture / Unknown 03/11/2024 3:38 AM EST 03/11/2024 4:10 AM EST Francois Mota DO LAB BLOOD ORDERABLES [facility] [address] [place] [address] * Magnesium, Blood Level (03/11/2024 3:38 AM EST) Magnesium 2.0 1.7 - 2.5 mg/dL 03/11/2024 4:42 AM EST [facility] Blood VENOUS BLOOD SPECIMEN / Unknown Venipuncture / Unknown 03/11/2024 3:38 AM EST 03/11/2024 4:10 AM EST Francois Mota DO LAB BLOOD ORDERABLES Performing Organization Address City/[facility]/ZIP Co de Phone Number [facility] [address] [place] [address] * Troponin I ( Lucía, Ham, Tye, and Spangler only ) (03/11/2024 3:38 AM EST) Troponin I 0.01 <=0.03 ng/mL 03/11/2024 4:42 AM EST [facility] Comment: Normal: <0.04 Indeterminate: 0.04-0.29 Suggestive of Myocardial Damage: >=0.30 Troponin I is elevated in acute coronary syndromes with myocardial necrosis as well as ST elevation IA. Increases are also associated with direct myocardial damage (myocarditis, pericarditis, contusion, cardioversion), myocardial strain (CHF, pulmonary hypertension, pulmonary embolus) and demand ischemia (sepsis, hypotension, atrial fibrillation). Troponin may also be elevated with renal failure, intracranial hemorrhage and amyloidosis. The mechanism for the latter elevations is unclear. An elevated troponin level is a predictor for poor outcomes regardless of its cause. Sammie Inter Med 2005;142:786-791. Blood VENOUS BLOOD SPECIMEN / Unknown Venipuncture / Unknown 03/11/2024 3:38 AM EST 03/11/2024 4:10 AM EST Lynn Decker DO LAB BLOOD ORDERABLES [facility] [address] [place] [address] * Chest Single View (03/11/2024 12:20 AM EST) Anatomical Region Laterality Modality Body, Chest Radiographic Meghan ging 03/11/2024 12:3 3 AM EST Impressions 03/11/2024 12:34 AM EST No acute cardiopulmonary process Narrative 03/11/2024 12:34 AM EST CHEST SINGLE VIEW: CLINICAL HISTORY: Chest pain TECHNIQUE: Single frontal view of the chest was obtained. COMPARISON: None FINDINGS: CABG changes. No cardiomegaly or congestion. No focal consolidation to suggest pneumonia. Calcified granuloma right midlung. No sizable pleural effusion or pneumothorax. Procedure Note Denzel Ley MD - 03/11/2024 CHEST SINGLE VIEW: CLINICAL HISTORY: Chest pain TECHNIQUE: Single frontal view of the chest was obtained. COMPARISON: None FINDINGS: CABG changes. No cardiomegaly or congestion. No focalconsolidation to suggest pneumonia. Calcified granuloma right midlung. No sizablepleural effusion or pneumothorax. IMPRESSION: No acute cardiopulmonary process Lynn Decker DO DIAGNOSTIC IMAGING O RDERABLES * Troponin I ( Lucía, Ham, Tye, and Spangler only ) (03/10/2024 11:58 PM EST) Troponin I 0.01 <=0.03 ng/mL 03/11/2024 12:26 AM EST [facility] Comment: Normal: <0.04 Indeterminate: 0.04-0.29 Suggestive of Myocardial Damage: >=0.30 Troponin I is elevated in acute coronary syndromes with myocardial necrosis as well as ST elevation IA. Increases are also associated with direct myocardial damage (myocarditis, pericarditis, contusion, cardioversion), myocardial strain (CHF, pulmonary hypertension, pulmonary embolus) and demand ischemia (sepsis, hypotension, atrial fibrillation). Troponin may also be elevated with renal failure, intracranial hemorrhage and amyloidosis. The mechanism for the latter elevations is unclear. An elevated troponin level is a predictor for poor outcomes regardless of its cause. Sammie Inter Med 2005;142:786-791. Blood VENOUS BLOOD SPECIMEN / Unknown Collection / Unknown 03/10/2024 11:58 PM EST 03/11/2024 12:03 AM EST Lynn Decker LAB BLOOD ORDERABLES Performing Organization Address [facility]/ZIP Co de Phone Number [facility] [address] [place] [phone] * Prothrombin Time/INR (03/10/2024 10:12 PM EST) Prothrombin Time 11.3 9.2 - 13.5 seconds 03/10/2024 10:41 PM EST [facility] INR 1.0 03/10/2024 10:41 PM EST [facility] Comment: 2.0 to 3.0 therapeutic range for most indications 2.5 to 3.5 therapeutic range for certain mechanical heart valves Blood VENOUS BLOOD SPECIMEN / Unknown Collection / Unknown 03/10/2024 10:12 PM EST 03/10/2024 10:29 PM EST Lynn Talaveraiarruthie RICE LAB BLOOD ORDERABLES Performing Organization Address [facility] de Phone Number [facility] [address] [place] [phone] * Activated Partial Thromboplastin Time (APTT) (03/10/2024 10:12 PM EST) Activated Partial Thromboplastin Time 33.6 25.0 - 38.0 seconds 03/10/2024 10:41 PM EST [facility] Comment: Heparin Therapeutic Range: *ACS or Low Intensity: 55-75 seconds *VTE/acute thrombosis/A-fib/valves: 60-90 seconds Blood VENOUS BLOOD SPECIMEN / Unknown Collection / Unknown 03/10/2024 10:12 PM EST 03/10/2024 10:29 PM EST Lynn Decker DO LAB BLOOD ORDERABLES [facility] [address] [place] [address] * Troponin I ( Lucía, Ham, Tye, and Spangler only ) (03/10/2024 10:12 PM EST) Troponin I 0.01 <=0.03 ng/mL 03/10/2024 10:56 PM EST [facility] Comment: Normal: <0.04 Indeterminate: 0.04-0.29 Suggestive of Myocardial Damage: >=0.30 Troponin I is elevated in acute coronary syndromes with myocardial necrosis as well as ST elevation IA. Increases are also associated with direct myocardial damage (myocarditis, pericarditis, contusion, cardioversion), myocardial strain (CHF, pulmonary hypertension, pulmonary embolus) and demand ischemia (sepsis, hypotension, atrial fibrillation). Troponin may also be elevated with renal failure, intracranial hemorrhage and amyloidosis. The mechanism for the latter elevations is unclear. An elevated troponin level is a predictor for poor outcomes regardless of its cause. Sammie Inter Med 2005;142:786-791. Blood VENOUS BLOOD SPECIMEN / Unknown Collection / Unknown 03/10/2024 10:12 PM EST 03/10/2024 10:29 PM EST Lynn Talaveraiard LAB BLOOD ORDERABLES Performing Organization Address City/[facility]/ZIP Co de Phone Number [facility] [address] [place] [address] * (ABNORMAL) Comprehensive Metabolic Panel (CMP) (03/10/2024 10:12 PM EST) Sodium 138 135 - 145 mmol/L 03/10/2024 10:56 PM EST [facility] Potassium 4.1 3.5 - 5.2 mmol/L 03/10/2024 10:56 PM EST [facility] Chloride 106 98 - 111 mmol/L 03/10/2024 10:56 PM EST [facility] Bicarbonate 21 20 - 29 mmol/L 03/10/2024 10:56 PM [facility] Anion Gap 11 5 - 17 mmol/L 03/10/2024 10:56 PM [facility] Glucose 131(H) 70 - 99 mg/dL 03/10/2024 10:56 PM [facility] Blood Urea Nitrogen (BUN) 19 7 - 25 mg/dL 03/10/2024 10:56 PM [facility] Creatinine 1.00 0.60 - 1.30 mg/dL 03/10/2024 10:56 PM [facility] Calcium 8.9 8.5 - 10.5 mg/dL 03/10/2024 10:56 PM [facility] Protein Total 6.9 6.4 - 8.3 g/dL 03/10/2024 10:56 PM [facility] Albumin 3.6 3.5 - 5.1 g/dL 03/10/2024 10:56 PM [facility] Globulin 3.3 2.2 - 4.0 g/dL 03/10/2024 10:56 PM [facility] Albumin/Globulin Ratio 1.1 03/10/2024 10:56 PM [facility] Bilirubin Total 0.2(L) 0.3 - 1.2 mg/dL 03/10/2024 10:56 PM [facility] Alkaline Phosphatase 93 33 - 120 U/L 03/10/2024 10:56 PM [facility] Alanine Aminotransferase (ALT) 32 9 - 47 U/L 03/10/2024 10:56 PM [facility] Aspartate Aminotransferase (AST) 23 <35 U/L 03/10/2024 10:56 PM [facility] eGFR 89 >60 mL/min/1. 73 m2 03/10/2024 10:56 PM [facility] Comment: Calculation based on the Chronic Kidney Disease Epidemiology Collaboration (CKD- EPI) equation refit without adjustment for race. Glomerular Filtration Rate is estimated from serum creatinine, age and gender using the CKD-EPI equation. CKD-EPI eGFR is best used for detection of chronic kidney disease in clinically Stable patients. DO NOT USE VALUES FROM THIS EQUATION FOR DRUG DOSING. It has not yet been validated for drug dosing or for patients with rapidly changing clinical situations (inpatient care). Blood VENOUS BLOOD SPECIMEN / Unknown Collection / Unknown 03/10/2024 10:12 PM EST 03/10/2024 10:29 PM EST Lynn Talaveraclaribel [facility] BLOOD ORDERABLES [facility] [address] [place] [address] * Complete Blood Count w/Differential (03/10/2024 10:12 PM EST) White Blood Cell 9.9 3.5 - 10.1 x10*9/L 03/10/2024 10:32 PM EST [facility] Red Blood Cell 5.42 4.31 - 5.48 x10*12/L 03/10/2024 10:32 PM EST [facility] Hemoglobin 15.4 13.5 - 17.0 g/dL 03/10/2024 10:32 PM EST [facility] Hematocrit 45.2 40.1 - 50.1 % 03/10/2024 10:32 PM EST [facility] Mean Cell Volume 83.4 80.0 - 100.0 fL 03/10/2024 10:32 PM EST [facility] Mean Cell Hemoglobin 28.4 28.0 - 33.0 pg 03/10/2024 10:32 PM EST [facility] Mean Cell Hemoglobin Concentration 34.1 32.0 - 36.0 g/dL 03/10/2024 10:32 PM EST [facility] Red Cell Distribution Width 13.1 12.0 - 15.0 % 03/10/2024 10:32 PM EST [facility] Platelet 278 150 - 400 x10*9/L 03/10/2024 10:32 PM EST [facility] Mean Platelet Volume 9.4 8.0 - 12.0 fL 03/10/2024 10:32 PM EST [facility] Neutrophil Automated Absolute 6.13 1.60 - 7.20 x10*9/L 03/10/2024 10:32 PM EST [facility] Lymphocyte Automated Absolute 2.63 1.10 - 4.00 x10*9/L 03/10/2024 10:32 PM EST [facility] Monocyte Automated Absolute 0.88 0.00 - 0.90 x10*9/L 03/10/2024 10:32 PM EST [facility] Eosinophil Automated Absolute 0.21 0.00 - 0.40 x10*9/L 03/10/2024 10:32 PM EST [facility] Basophil Automated Absolute 0.05 0.00 - 0.10 x10*9/L 03/10/2024 10:32 PM EST [facility] Immature Granulocyte Automated Absolute 0.04 0.00 - 0.04 x10*9/L 03/10/2024 10:32 PM EST [facility] Immature Granulocyte Automated 0.4 % 03/10/2024 10:32 PM EST [facility] NUCLEATED RED BLOOD CELLS AUTOMATED 0.0 <=0.0 % 03/10/2024 10:32 PM EST [facility] Blood VENOUS BLOOD SPECIMEN / Unknown Collection / Unknown 03/10/2024 10:12 PM EST 03/10/2024 10:29 PM EST Lynn Talaveraclaribel [facility] BLOOD ORDERABLES [facility] [address] [place] [address] * Electrocardiogram, Complete (03/10/2024 10:04 PM EST) 03/10/2024 10:0 4 PM EST 03/13/2024 1:54 PM EST Narrative [facility] - 03/13/2024 1:54 PM EST Ventricular Rate 78 BPM Atrial Rate 78 BPM P-R Interval 146 ms QRS Duration 84 ms Q-T Interval 372 ms QTC Calculation(Bazett) 424 ms Calculated P [employer] 66 degrees Calculated R [employer] -1 degrees Calculated T [employer] 76 degrees Diagnosis Sinus rhythm with Premature atrial complexes Possible Left atrial enlargement Possible Anteroseptal infarct , age undetermined Abnormal ECG No previous ECGs available Confirmed by Tab Good ([id number]) on 03/13/2024 1:54:23 PM Procedure Note Tab Good DO - 03/13/2024 Ventricular Rate 78 BPM Atrial Rate 78 BPM P-R Interval 146 ms QRS Duration 84 ms Q-T Interval 372 ms QTC Calculation(Bazett) 424 ms Calculated P [employer] 66 degrees Calculated R [employer] -1 degrees Calculated T [employer] 76 degrees Diagnosis Sinus rhythm with Premature atrial complexes Possible Left atrial enlargement Possible Anteroseptal infarct , age undetermined Abnormal ECG No previous ECGs available Confirmed by Tab Good ([id number]) on 03/13/2024 1:54:23 PM Sally Mckinney MD ECG ORDERABLES [facility] documented in this encounter Visit Diagnoses Diagnosis Chest pain, unspecified type- Primary Chest pain, unspecified type CAD (coronary artery disease) Coronary atherosclerosis of unspecified type of vessel, [place] or graft Essential hypertension Unspecified essential hypertension Moderate mixed hyperlipidemia not requiring statin therapy Anxiety disorder Anxiety state, unspecified documented in this encounter Admitting Diagnoses Diagnosis Chest pain, unspecified type documented in this encounter Administered Medications Inactive Administered Medications - up to 3 most recent administrations Medication Order MAR Action Action Date Dose Rate Site acetaminophen (TYLENOL) tablet 1,000 mg 1,000 mg (9.38 mg/kg), Oral, Every 6 hours PRN, Mild Pain (pain scale 1-3) or patient description, Starting on 03/11/24 at 0230, Maximum adult dosage not to exceed 4000 mg within 24 hours. Begin with 500 mg of acetaminophen. If pain is unrelieved use 1000 mg of acetaminophen. May repeat 500 mg dose in 30 minutes if pain is unrelieved. Dose range: 500 mg to 1000 mg based on previous pain relief. acetaminophen (TYLENOL) tablet 500 mg 500 mg (4.69 mg/kg), Oral, Every 6 hours PRN, Mild Pain (pain scale 1-3) or patient description, Starting on 03/11/24 at 0230, Maximum adult dosage not to exceed 4000 mg within 24 hours. Begin with 500 mg of acetaminophen. If pain is unrelieved use 1000 mg of acetaminophen. May repeat 500 mg dose in 30 minutes if pain is unrelieved. Dose range: 500 mg to 1000 mg based on previous pain relief. ARIPiprazole (ABILIFY) tablet 10 mg 10 mg (0.0938 mg/kg), Oral, Daily, First dose on 03/11/24 at 0900 Given 03/12/2024 11:24 AM EST 10 mg Given 03/11/2024 8:16 AM EST 10 mg aspirin chewable tablet 81 mg 81 mg (0.76 mg/kg), Oral, Daily, First dose on 03/11/24 at 0900 Given 03/12/2024 11:24 AM EST 81 mg Given 03/11/2024 8:15 AM EST 81 mg aspirin tablet 325 mg 325 mg (3.05 mg/kg), Oral, Once, On 03/11/24 at 0030, For 1 dose Given 03/10/2024 11:55 PM EST 325 mg atorvastatin (LIPITOR) tablet 80 mg 80 mg (0.75 mg/kg), Oral, Nightly, First dose (after last modification) on 03/11/24 at 0315 Given 03/11/2024 9:26 PM EST 80 mg Given 03/11/2024 2:48 AM EST 80 mg carvedilol (COREG) tablet 12.5 mg 12.5 mg (0.117 mg/kg), Oral, Every 12 hours, First dose on 03/11/24 at 0315, Give with food. Check BP and HR immediately prior to administration. Hold dose if SBP less than 110 or HR less than 50. Monitor blood pressure on dosage increases. Given 03/12/2024 11:26 AM EST 12.5 mg Given 03/11/2024 3:21 PM EST 12.5 mg Given 03/11/2024 2:48 AM EST 12.5 mg carvedilol (COREG) tablet 12.5 mg 12.5 mg (0.117 mg/kg), Oral, Every 12 hours, First dose (after last modification) on 03/12/24 at 2100, Give with food. Check BP and HR immediately prior to administration. Hold dose if SBP less than 110 or HR less than 50. Monitor blood pressure on dosage increases. clopidogrel (PLAVIX) tablet 75 mg 75 mg (0.704 mg/kg), Oral, Daily, First dose on 03/11/24 at 0900 Given 03/12/2024 11:24 AM EST 75 mg Given 03/11/2024 8:16 AM EST 75 mg escitalopram (LEXAPRO) tablet 20 mg 20 mg (0.188 mg/kg), Oral, Daily, First dose on 03/11/24 at 0900 Given 03/12/2024 11:24 AM EST 20 mg Given 03/11/2024 8:16 AM EST 20 mg ezetimibe (Zetia) 10 mg tablet 10 mg 10 mg (0.0938 mg/kg), Oral, Nightly, First dose on 03/11/24 at 2100 Given 03/11/2024 9:26 PM EST 10 mg HYDROcodone-acetaminophen (NORCO) 5-325 mg per tablet 1 tablet 1 tablet, Oral, Every 8 hours PRN, Moderate Pain (pain scale 4-6) or patient description, Starting on 03/11/24 at 0229, Maximum dose of acetaminophen is 4000 mg from all sources in 24 hours. Given 03/11/2024 2:49 AM EST 1 tabl et losartan (COZAAR) tablet 50 mg 50 mg (0.469 mg/kg), Oral, Daily, First dose on 03/11/24 at 0900, Check BP immediately prior to administration. Hold dose if SBP less than 90 and recheck SBP in 1 hour. If recheck SBP greater than or equal to 90, administer dose. If recheck SBP less than 90, notify provider. Given 03/12/2024 11:24 AM EST 50 mg Given 03/11/2024 8:16 AM EST 50 mg morphine (PF) injection 2 mg 2 mg (0.0188 mg/kg), Intravenous, Every 6 hours PRN, Moderate Pain (pain scale 4-6) or patient description, Starting on 03/11/24 at 0628 Given 03/12/2024 1:27 PM EST 2 mg Given 03/12/2024 6:41 AM EST 2 mg Given 03/11/2024 7:57 PM EST 2 mg morphine injection 4 mg 4 mg (0.0375 mg/kg), Intravenous, Once, On 03/11/24 at 0030, For 1 dose Given 03/10/2024 11:56 PM EST 4 mg nicotine (NICODERM CQ) 21 MG/24HR patch 1 patch 1 patch, Transdermal, Administer over 24 Hours, Daily, First dose (after last modification) on 03/11/24 at 0315, Apply patch to hairless, clean, dry skin on the upper body or upper outer arm. Patch Applied 03/12/2024 11:23 AM EST 1 patch Right Arm Patch Applied 03/11/2024 2:49 AM EST 1 patch Left Arm nitroglycerin (NITROSTAT) sublingual tablet 0.4 mg 0.4 mg (0.17443 mg/kg), Sublingual, Every 5 min PRN, Chest pain, Starting on Wed03/10/24 at 2346, For 3 doses, Do NOT crush or chew. Given 03/10/2024 11:55 PM EST 0.4 mg pantoprazole (Protonix) enteric-coated tablet 40 mg 40 mg (0.375 mg/kg), Oral, Daily, First dose on 03/11/24 at 0900, Do not crush. Given 03/12/2024 11:24 AM EST 40 m g Given 03/11/2024 8:16 AM EST 40 mg perflutren lipid microsphere (DEFINITY) 1.5 mL in sodium chloride (NS) 0.9 % 10 mL injection 0.5-20 mL, Intravenous, Administer over 0.5 Minutes, Once PRN, Protocol, Per Echo Imaging Agent Administration Protocol., Starting on 03/11/24 at 1044, For 1 dose, Administer the imaging agent solution dose of 0.5 ml over 30 seconds per slow intravenous push. PRN for up to a total of 10mL based on ability to capture images. Must wait 30 minutes prior to administering another 10mL. May administer a total of 2 vials of prepared imaging agent solution for a total of 20mL. Given 03/11/2024 10:45 AM EST 1.5 mL QUEtiapine (Seroquel) tablet 50 mg 50 mg (0.469 mg/kg), Oral, Nightly, First dose (after last modification) on 03/11/24 at 0315 Given 03/11/2024 9:26 PM EST 50 mg Given 03/11/2024 2:48 AM EST 50 mg ranolazine (RANEXA) 12 hr tablet 500 mg 500 mg (4.69 mg/kg), Oral, 2 times daily, First dose on 03/11/24 at 0900 Given 03/12/2024 11:24 AM EST 500 mg Given 03/11/2024 9:26 PM EST 500 mg Given 03/11/2024 8:15 AM EST 500 mg regadenoson injection 0.4 mg 0.4 mg (0.20353 mg/kg), Intravenous, Once in Imaging, Other, For Procedure, Starting on 03/12/24 at 0753, For 1 dose, Administer over 10 to 15 seconds. Do not dilute. Flush with 5 mL 0.9% sodium chloride before and after injection. Given 03/12/2024 9:35 AM EST 0.4 mg sodium chloride flush 0.9 % syringe 10 mL 10 mL, Intravenous, PRN, Line Care, For IV start and after imaging agent., Starting on 03/11/24 at 1044 Given 03/11/2024 10:45 AM EST 10 mL sodium chloride flush 0.9 % syringe 10 mL 10 mL, Intravenous, Once, On 03/12/24 at 0830, For 1 dose Given 03/12/2024 9:36 AM EST 10 mL sodium chloride flush 0.9 % syringe 10 mL 10 mL, Intravenous, Once, On Wed03/12/24 at 0830, For 1 dose Given 03/12/2024 8:07 AM EST 10 mL sodium chloride flush 0.9 % syringe 3 mL 3 mL, Intravenous, PRN, Other, As needed for medication administration and IV patency, Starting on Wed03/10/24 at 2211 spironolactone (ALDACTONE) tablet 25 mg 25 mg (0.235 mg/kg), Oral, Daily, First dose on 03/11/24 at 0900, Give with food or milk. Given 03/12/2024 11:24 AM EST 25 mg Given 03/11/2024 8:16 AM EST 25 mg technetium Tc 99m tetrofosmin injection 10 millicurie 10 millicurie (0.0938 millicurie/kg), Intravenous, Once, On 03/12/24 at 0830, For 1 dose Given 03/12/2024 7:53 AM EST 11 millicuries technetium Tc 99m tetrofosmin injection 30 millicurie 30 millicurie (0.281 millicurie/kg), Intravenous, Once, On 03/12/24 at 0830, For 1 dose Given 03/12/2024 9:36 AM EST 33 millicuries documented in this encounter Active and Recently Administered Medications Times are shown in EST. Scheduled Medication Order 03/10/2024 03/11/2024 03/12/2024 ARIPiprazole (ABILIFY) tablet 10 mg 10 mg (0.0938 mg/kg), Oral, Daily, First dose on 03/11/24 at 0900 0816 (Given - Provider: Maria De Jesus Underwood RN) 1124 (Given - Provider: Dinora Sun RN) aspirin chewable tablet 81 mg 81 mg (0.76 mg/kg), Oral, Daily, First dose on 03/11/24 at 0900 0815 (Given - Provider: Maria De Jesus Underwood RN) 1124 (Given - Provider: Dinora Sun RN) aspirin tablet 325 mg (COMPLETED) 325 mg (3.05 mg/kg), Oral, Once, On 03/11/24 at 0030, For 1 dose 2355 (Given - Provider: Kaye Gutierrez RN) atorvastatin (LIPITOR) tablet 80 mg 80 mg (0.75 mg/kg), Oral, Nightly, First dose (after last modification) on 03/11/24 at 0315 0248 (Given - Provider: Aura Rebollar RN)2126 (Given - Provider: Jennifer Lara RN) carvedilol (COREG) tablet 12.5 mg (CANCELED) 12.5 mg (0.117 mg/kg), Oral, Every 12 hours, First dose on 03/11/24 at 0315, Give with food. Check BP and HR immediately prior to administration. Hold dose if SBP less than 110 or HR less than 50. Monitor blood pressure on dosage increases. 0248 (Given - Provider: Aura Rebollar RN)1521 (Given - Provider: Maria De Jesus Underwood RN) 1126 (Given - Provider: Dinora Sun, LEIF) carvedilol (COREG) tablet 12.5 mg 12.5 mg (0.117 mg/kg), Oral, Every 12 hours, First dose (after last modification) on 03/12/24 at 2100, Give with food. Check BP and HR immediately prior to administration. Hold dose if SBP less than 110 or HR less than 50. Monitor blood pressure on dosage increases. clopidogrel (PLAVIX) tablet 75 mg 75 mg (0.704 mg/kg), Oral, Daily, First dose on 03/11/24 at 0900 0816 (Given - Provider: Maria De Jesus Underwood RN) 1124 (Given - Provider: Dinora Sun, LEIF) enoxaparin Sodium (LOVENOX) injection HIGH ALERT 40 mg 40 mg (0.375 mg/kg), Subcutaneous, Every 24 hours scheduled, First dose on 03/11/24 at 0900, Administer by deep subQ injection into abdominal wall. Contraindicated in patients with epidural catheters. Patients should NOT be on both enoxaparin and heparin. Do not expel bubble before injection. Contraindicated in patients with epidural catheters. Patients should NOT be on both enoxaparin and heparin. Administer by deep subQ injection into abdominal wall. 0818 (Not Given - Provider: Maria De Jesus Underwood RN - Reason: Patient/Patient Dental Laboratory Supervisor Refused) 1144 (Not Given - Provider: Dinora Sun RN - Reason: Patient/Patient Dental Laboratory Supervisor Refused) escitalopram (LEXAPRO) tablet 20 mg 20 mg (0.188 mg/kg), Oral, Daily, First dose on 03/11/24 at 0900 0816 (Given - Provider: Maria De Jesus Underwood RN) 1124 (Given - Provider: Dinora Sun, LEIF) ezetimibe (Zetia) 10 mg tablet 10 mg 10 mg (0.0938 mg/kg), Oral, Nightly, First dose on 03/11/24 at 2100 2126 (Given - Provider: Jennifer Lara RN) losartan (COZAAR) tablet 50 mg 50 mg (0.469 mg/kg), Oral, Daily, First dose on 03/11/24 at 0900, Check BP immediately prior to administration. Hold dose if SBP less than 90 and recheck SBP in 1 hour. If recheck SBP greater than or equal to 90, administer dose. If recheck SBP less than 90, notify provider. 0816 (Given - Provider: Maria De Jesus Underwood, RN) 1124 (Given - Provider: Dinora Sun, LEIF) morphine injection 4 mg (COMPLETED) 4 mg (0.0375 mg/kg), Intravenous, Once, On 03/11/24 at 0030, For 1 dose 2356 (Given - Provider: Kaye Gutierrez, LEIF) nicotine (NICODERM CQ) 21 MG/24HR patch 1 patch 1 patch, Transdermal, Administer over 24 Hours, Daily, First dose (after last modification) on 03/11/24 at 0315, Apply patch to hairless, clean, dry skin on the upper body or upper outer arm. 0249 (Patch Applied - Provider: Aura Rebollar RN)2025 (Assess Patch - Provider: Jennifer Lara RN) 020 (Patch Removed - Provider: Jennifer Lara RN)112 (Patch Applied - Provider: Dinora Sun RN)182 (Due: Patch Removed - Provider: Automatic Discharge Provider - Comment: Time automatically adjusted from order being discontinued) pantoprazole (Protonix) enteric-coated tablet 40 mg 40 mg (0.375 mg/kg), Oral, Daily, First dose on 03/11/24 at 0900, Do not crush. 0816 (Given - Provider: Maria De Jesus Underwood, LEIF) 1124 (Given - Provider: Dinora Sun, LEIF) QUEtiapine (Seroquel) tablet 50 mg 50 mg (0.469 mg/kg), Oral, Nightly, First dose (after last modification) on 03/11/24 at 0315 0248 (Given - Provider: Aura Rebollar RN)212 (Given - Provider: Jennifer Lara, LEIF) ranolazine (RANEXA) 12 hr tablet 500 mg 500 mg (4.69 mg/kg), Oral, 2 times daily, First dose on 03/11/24 at 0900 0815 (Given - Provider: Maria De Jesus Underwood, LEIF)2126 (Given - Provider: Jennifer Lara RN) 1124 (Given - Provider: Dinora Sun, LEIF) sodium chloride 0.9% bolus injection 500 mL 500 mL (4.69 mL/kg), Intravenous, at 500 mL/hr, Administer over 60 Minutes, Once, On Wed03/10/24 at 2245, For 1 dose, Use 1000ml bag. Infuse as quickly as possible. For use as outlined in the Emergency Department Interdisciplinary protocols. 2348 (Hold - Provider: Kaye Gutierrez RN - Reason: Order Parameters Not Met) sodium chloride flush 0.9 % syringe 10 mL (COMPLETED) 10 mL, Intravenous, Once, On 03/12/24 at 0830, For 1 dose 0936 (Given - Provider: KOMAL Arboleda) sodium chloride flush 0.9 % syringe 10 mL (COMPLETED) 10 mL, Intravenous, Once, On 03/12/24 at 0830, For 1 dose 0807 (Given - Provider: KOMAL Arboleda) spironolactone (ALDACTONE) tablet 25 mg 25 mg (0.235 mg/kg), Oral, Daily, First dose on 03/11/24 at 0900, Give with food or milk. 0816 (Given - Provider: Maria De Jesus Underwood RN) 1124 (Given - Provider: Dinora Sun RN) technetium Tc 99m tetrofosmin injection 10 millicurie (COMPLETED) 10 millicurie (0.0938 millicurie/kg), Intravenous, Once, On 03/12/24 at 0830, For 1 dose 0753 (Given - Provider: KOMAL Arboleda) technetium Tc 99m tetrofosmin injection 30 millicurie (COMPLETED) 30 millicurie (0.281 millicurie/kg), Intravenous, Once, On 03/12/24 at 0830, For 1 dose 0936 (Given - Provider: KOMAL Arboleda) PRN Medication Order 03/10/2024 03/11/2024 03/12/2024 acetaminophen (TYLENOL) tablet 1,000 mg(Linked Group 1) 1,000 mg (9.38 mg/kg), Oral, Every 6 hours PRN, Mild Pain (pain scale 1-3) or patient description, Starting on 03/11/24 at 0230, Maximum adult dosage not to exceed 4000 mg within 24 hours. Begin with 500 mg of acetaminophen. If pain is unrelieved use 1000 mg of acetaminophen. May repeat 500 mg dose in 30 minutes if pain is unrelieved. Dose range: 500 mg to 1000 mg based on previous pain relief. acetaminophen (TYLENOL) tablet 500 mg(Linked Group 1) 500 mg (4.69 mg/kg), Oral, Every 6 hours PRN, Mild Pain (pain scale 1-3) or patient description, Starting on 03/11/24 at 0230, Maximum adult dosage not to exceed 4000 mg within 24 hours. Begin with 500 mg of acetaminophen. If pain is unrelieved use 1000 mg of acetaminophen. May repeat 500 mg dose in 30 minutes if pain is unrelieved. Dose range: 500 mg to 1000 mg based on previous pain relief. HYDROcodone-acetaminophen (NORCO) 5-325 mg per tablet 1 tablet 1 tablet, Oral, Every 8 hours PRN, Moderate Pain (pain scale 4-6) or patient description, Starting on 03/11/24 at 0229, Maximum dose of acetaminophen is 4000 mg from all sources in 24 hours. 0249 (Given - Provider: Aura Rebollar RN) morphine (PF) injection 2 mg 2 mg (0.0188 mg/kg), Intravenous, Every 6 hours PRN, Moderate Pain (pain scale 4-6) or patient description, Starting on 03/11/24 at 0628 0633 (Given - Provider: Aura Rebollar, LEIF)1223 (Given - Provider: Maria De Jesus Underwood RN)1957 (Given - Provider: Jennifer Lara, LEIF) 0641 (Given - Provider: Jennifer Lara RN)1327 (Given - Provider: Dinora Sun RN) nitroglycerin (NITROSTAT) sublingual tablet 0.4 mg (CANCELED) 0.4 mg (0.18901 mg/kg), Sublingual, Every 5 min PRN, Chest pain, Starting on Wed03/10/24 at 2346, For 3 doses, Do NOT crush or chew. 2355 (Given - Provider: Kaye Gutierrez, LEIF) nitroglycerin (NITROSTAT) sublingual tablet 0.4 mg 0.4 mg (0.17299 mg/kg), Sublingual, Every 5 min PRN, Chest pain, Starting on 03/11/24 at 0229, For 3 doses, Do NOT crush or chew. perflutren lipid microsphere (DEFINITY) 1.5 mL in sodium chloride (NS) 0.9 % 10 mL injection (COMPLETED) 0.5-20 mL, Intravenous, Administer over 0.5 Minutes, Once PRN, Protocol, Per Echo Imaging Agent Administration Protocol., Starting on 03/11/24 at 1044, For 1 dose, Administer the imaging agent solution dose of 0.5 ml over 30 seconds per slow intravenous push. PRN for up to a total of 10mL based on ability to capture images. Must wait 30 minutes prior to administering another 10mL. May administer a total of 2 vials of prepared imaging agent solution for a total of 20mL. 1045 (Given - Provider: Bela Odell) regadenoson injection 0.4 mg (COMPLETED) 0.4 mg (0.22326 mg/kg), Intravenous, Once in Imaging, Other, For Procedure, Starting on Wed03/12/24 at 0753, For 1 dose, Administer over 10 to 15 seconds. Do not dilute. Flush with 5 mL 0.9% sodium chloride before and after injection. 0935 (Given - Provider: Lonnie Lawrence [facility]) sodium chloride flush 0.9 % syringe 10 mL 10 mL, Intravenous, PRN, Line Care, For IV start and after imaging agent., Starting on 03/11/24 at 1044 1045 (Given - Provider: Bela Odell) sodium chloride flush 0.9 % syringe 3 mL(Linked Group 2) 3 mL, Intravenous, PRN, Other, As needed for medication administration and IV patency, Starting on Wed03/10/24 at 2211 Linked Groups Order Group 1: acetaminophen (TYLENOL) tablet 500 mgJump to med 500 mg (4.69 mg/kg), Oral, Every 6 hours PRN, Mild Pain (pain scale 1-3) or patient description, Starting on Wed03/11/24 at 0230, Maximum adult dosage not to exceed 4000 mg within 24 hours. Begin with 500 mg of acetaminophen. If pain is unrelieved use 1000 mg of acetaminophen. May repeat 500 mg dose in 30 minutes if pain is unrelieved. Dose range: 500 mg to 1000 mg based on previous pain relief. Or acetaminophen (TYLENOL) tablet 1,000 mgJump to med 1,000 mg (9.38 mg/kg), Oral, Every 6 hours PRN, Mild Pain (pain scale 1-3) or patient description, Starting on 03/11/24 at 0230, Maximum adult dosage not to exceed 4000 mg within 24 hours. Begin with 500 mg of acetaminophen. If pain is unrelieved use 1000 mg of acetaminophen. May repeat 500 mg dose in 30 minutes if pain is unrelieved. Dose range: 500 mg to 1000 mg based on previous pain relief. Group 2: Insert and Maintain IV (CANCELED) STAT, Until discontinued, Starting on Wed03/10/24 at 2212, Until Specified And sodium chloride flush 0.9 % syringe 3 mLJump to med 3 mL, Intravenous, PRN, Other, As needed for medication administration and IV patency, Starting on Wed03/10/24 at 2211 documented in this encounter Care Teams Solutions Architect Relationship Specialty Start Date End Date Physician, None, DO PCP - General 03/10/24 documented as of this encounter
--- OUTSIDE RECORDS SUMMARY | 2024-04-09 16:15 | XMS_ITS | Referral Summary ---
Author Organization [facility] Address [address] [place] [address] Phone Care Team Providers Care Testing Tech Name Role Phone Provider, Not In System Primary Care Provider Un available Allergies Active Allergy Reactions Criticality Noted Date Comments Kpdfnyd-Tcj-Ics Reductase Inhibitors Medium 09/10/2015 Other reaction(s): MYALGIA Added per MD notation that he cannot tolerate statins for treatment Other reaction(s): joint pain Medications albuterol sulfate hfa 90 mcg/actuation aerosol inhaler Inhale 2 puffs into the lungs once every 4 (four) hours as needed for shortness of breath or wheezing. Active amLODIPine (NORVASC) 10 MG tablet Take 1 tablet (10 mg total) by mouth once daily. Active aspirin 81 MG EC tablet Take 2 tablets (162 mg total) by mouth once daily. Active carvediloL (COREG) 12.5 MG tablet Take 1 tablet (12.5 mg total) by mouth 2 (two) times a day with meals. Active isosorbide mononitrate (IMDUR) 30 MG 24 hr tablet Take 1 tablet (30 mg total) by mouth once daily. Active nicotine (NICODERM CQ) 21 mg/[address] 1 patch onto the skin once daily. Active pantoprazole (PROTONIX) 40 MG delayed-release tablet Take 1 tablet (40 mg total) by mouth daily every night. Active QUEtiapine (SEROquel) 50 MG tablet Take 1 tablet (50 mg total) by mouth daily every night. Active spironolactone (ALDACTONE) 25 MG tablet Take 1 tablet (25 mg total) by mouth once daily. 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 Social History Tobacco Use Types Packs/Day Years Used Date Smoking Tobacco: Every Day Cigarettes Passive Smoke Exposure: Current Smokeless Tobacco: Never Tobacco Cessation:Ready to Q uit: No; Counseling Given: No Alcohol Use Standard Drinks/Week Comments Not Currently 0 (1 standard drink = 0.6 oz pur e alcohol) Sex and Gender Information Value Date Recorded Sex Assigned at Not on file Legal Sex Male 6:07 PM CDT Gender Identity Not on file Sexual Orientation Not on file Last Filed Vital Signs Vital Sign Reading Time Taken Comments Blood Pressure 136/92 06/21/2023 7:14 AM CDT Pulse 65 06/21/2023 8:00 AM CDT Temperature 36.9 C (98.4 F) 06/21/2023 7:14 AM CDT Respiratory Rate 16 06/21/2023 8:00 AM CDT Oxygen Saturation 99% 06/21/2023 8:00 AM CDT Inhaled Oxygen Concentration - - Weight 113.4 kg (250 lb) 06/20/2023 6:19 PM CDT Height 177.8 cm (5' 10) 06/20/2023 6:19 PM CDT Body Mass Index 35.87 06/20/2023 6:19 PM CDT Functional Status * Patient's Vision Adequate to Safely Complete Daily Activities Answer Date of Assessment Author Yes 06/20/2023 11:00 PM CDT Danuta Rivera RN * Patient's Judgement Adequate to Safely Complete Daily Activities Answer Date of Assessment Author Yes 06/20/2023 11:00 PM CDT Danuta Rivera RN Mental Status * Patient's Memory Adequate to Safely Complete Daily Activities Answer Entry Date Author Yes 06/20/2023 11:00 PM CDT Danuta Rivera RN Plan of Treatment Not on file Procedures Procedure Name Priority Date/Time Associated Diagnosis Comments LIPID PANEL Routine 06/21/2023 1:47 AM CDT from Last 3 Months or Most Recently Relevant to Health Maintenance Results * (ABNORMAL) Lipid panel - in AM - (if no result in last 90 days) (06/21/2023 1:47 AM CDT) Cholesterol, Total 225(H) 120 - 200 mg/dl [facility] Triglycerides 154(H) <=149 mg/dl [facility] HDL-C, Total 35(L) 40 - 60 mg/dl [facility] Cholesterol/HDL-C Ratio 6.4(H) <=5.0 ratio [facility] Non-HDL Cholesterol 190 mg/dl [facility] Comment:The reference range is the patient's target low density lipoprotein plus 30. LDL Cholesterol Calc 159(H) <=99 mg/dl [facility] LDL, HDL-C Ratio 4.6(H) <=3.6 ratio [facility] Comment: Risk of Developing Coronary Heart Disease Female Guidelines Male Guidelines Up to 1.5 Up to 1.0 Low Risk 1.6 to 3.2 1.1 to 3.6 Average Risk 3.3 to 5.0 3.7 to 6.3 Above Average Risk 5.1 to 6.1 6.4 to 8.0 High Risk VLDL Calculated 31(H) <=30 mg/dl [facility] Blood 06/21/2023 1:47 AM CDT 06/21/2023 8:45 AM CDT Paris Iniguez MD LAB BLOOD ORDERABLES Final Re sult [facility] [address] [place] [address] from Last 3 Months or Most Recently Relevant to Health Maintenance Insurance MEDICAID GENERIC Advance Directives * Full Code (Latest Code Status on File) Date Activated Date Inactivated Comments 06/20/2023 11:44 PM 06/21/2023 4:02 PM Question Answer Comments This code status was determined by: Patient Care Teams Testing Tech Relationship Specialty Start Date End Date Provider, Not In System DO NOT ENTER DEMOGRAPHIC INFORMATION PCP - General 06/20/23
--- OUTSIDE RECORDS SUMMARY | 2024-04-09 16:15 | XMS_ITS | Clinical Summary ---
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 Family History Medical History Relation Name Comments Heart disease Father Heart disease Other Relation Name Status Comments Father Other grandfather and great grandfather Social History Tobacco Use Types Packs/Day Years [...] Mass Index 35.87 06/20/2023 6:19 PM CDT Plan of Treatment Health Maintenance Due Date Last Done Comments CT Colonography 1968 FOBT 1968 Fit-DNA 1968 Sigmoidoscopy 1968 Pneumococcal Vaccine: 0-64 Y ears (1 of 2 - PCV) 1974 HIV Screening 10/04/1983 Hepatitis C Screening 1986 DTAP/TDAP/TD VACCINES (1 - Tdap) 10/04/1987 Colon Cancer Screening 2013 Colonoscopy 2013 SHINGLES VACCINES (1 of 2) 2018 Influenza Vaccine (#1) 2023 7, 02/06/2004, 01/16/2003 COVID-19 VACCINE (2023- season) 2023 Tobacco Cessation and Counse ling (12+) 03/29/2024 06/20/2023 Lipid Panel 06/20/2026 06/21/2023 Procedures Procedure Name Priority Date/Time Associated Diagnosis Comments LIPID PANEL Routine 06/21/2023 1:47 AM CDT from Last 3 Months or Most Recently Relevant to Health Maintenance Results * (ABNORMAL) Lipid panel - in AM - (if no result in last 90 days) (06/21/2023 1:47 AM CDT) Cholesterol, Total 225(H) 120 - 200 mg/dl [facility] Triglycerides 154(H) <=149 mg/dl [facility] HDL-C, Total 35(L) 40 - 60 mg/dl [facility] Cholesterol/HDL-C Ratio 6.4(H) <=5.0 ratio [facility] Non-HDL Cholesterol 190 mg/dl [facility] Comment:The reference range is the patient's target low density lipoprotein plus 30. LDL Cholesterol Calc 159(H) <=99 mg/dl [facility] LDL, HDL-C Ratio 4.6(H) <=3.6 ratio [facility] Comment: Risk of Developing Coronary Heart Disease Female Guidelines Male Guidelines Up to 1.5 Up to 1.0 Low Risk 1.6 to 3.2 1.1 to 3.6 Average Risk 3.3 to 5.0 3.7 to 6.3 Above Average Risk 5.1 to 6.1 6.4 to 8.0 High Risk VLDL Calculated 31(H) <=30 mg/dl [facility] Blood 06/21/2023 1:47 AM CDT 06/21/2023 8:45 AM CDT us Paris Iniguez MD LAB BLOOD ORDERABLES Final Re sult [facility] [address] [place] [address] from Last 3 Months or Most Recently Relevant to Health Maintenance Insurance MEDICAID GENERIC Advance Directives * Full Code (Latest Code Status on File) Date Activated Date Inactivated Comments 06/20/2023 11:44 PM 06/21/2023 4:02 PM Question Answer Comments This code status was determined by: Patient Care Teams Neuropsychology Medical Consultant Relationship Specialty Start Date End Date Provider, Not In System DO NOT ENTER DEMOGRAPHIC INFORMATION PCP - General 06/20/23
--- OUTSIDE RECORDS SUMMARY | 2024-04-09 16:15 | XMS_ITS | CCD ---
Author Organization [facility] Inform ion Partnership [facility] Care Team Providers Care Pattern Marker Name Role Phone Unavailable Primary Care Provider UnavailHERNESTO Agee III Attending Unavailable SERVICE, [employer] TEACHING Consulting Unavail able KAI BAKER Attending Unavailable BRIANA ASH Admitting Unavail able NO, PHYSICIAN Primary Care Unavailable Medications Current Medications Medication Drug Class(es) Dates Sig (Normalized) Sig (Original) [id number] 200 actuat albuterol 0.09 mg/actuat metered dose inhaler (1 source) beta2-Adrenergic Agonist take 1 puff(s) by inhalation every six hours as needed Albuterol 108 (90 Base) MCG/ACT Aero Soln inhaler Inhale 1 puff every 6 hours as needed for Shortness of Breath. Active ARIPiprazole 10 mg oral tablet (1 source) Atypical Antipsychotic take 1 tablet by mouth once daily aripiprazole 10 MG tablet Take 1 tablet by mouth daily. Active aspirin 81 mg chewable tablet (2 sources) Platelet Aggregation Inhibitor, Nonsteroidal Anti-inflammatory Drug Start: 03-18-2024 End: 03-18-2024 take 1 dose by mouth once 324 mg, Oral, ONCE, 1 dose, On 03/18/24 at 0945 aspirin 81 MG Ch ew Tab chewable tablet Chew 1 tablet daily. Active atorvastatin 40 mg oral tablet (1 source) HMG-CoA Reductase Inhibitor take 2 tablets by mouth once daily Atorvastatin 40 MG tablet Take 2 tablets by mouth daily. Active calcium carbonate 500 mg oral tablet (1 source) take 1 tablet by mouth once daily calcium carbonate 1250 (500 Ca) MG tablet Take 1 tablet by mouth daily. Active carvedilol 12.5 mg oral tablet (1 source) alpha-Adrenergic Michael, beta-Adrenergic Michael take 1 tablet by mouth twice daily at mealtime carveDILOL 12.5 MG tablet Take 1 tablet by mouth 2 times daily with meals. Active clopidogrel 75 mg oral tablet (1 source) P2Y12 Platelet Inhibitor take 1 tablet by mouth once daily Clopidogrel 75 MG tablet Take 1 tablet by mouth daily. Active escitalopram 20 mg oral tablet (1 source) Serotonin Reuptake Inhibitor take 1 tablet by mouth once daily escitalopram 20 MG tablet Take 1 tablet by mouth daily. Active ezetimibe 10 mg oral tablet (1 source) Dietary Cholesterol Absorption Inhibitor take 1 tablet by mouth once daily Ezetimibe (Zetia) 10 MG tablet Take 1 tablet by mouth daily. Active losartan potassium 50 mg oral tablet (1 source) Angiotensin 2 Receptor Michael take 1 tablet by mouth once daily Losartan 50 MG tablet Take 1 tablet by mouth daily. Active QUEtiapine 50 mg oral tablet (1 source) Atypical Antipsychotic take 1 tablet by mouth twice daily QUEtiapine 50 MG tablet Take 1 tablet by mouth 2 times daily. Active 12 hr ranolazine 500 mg extended release oral tablet (1 source) Anti-anginal take 1 tablet by mouth twice daily Ranolazine 500 MG Tab SR 12 HR tablet Take 1 tablet by mouth 2 times daily. Active spironolactone 25 mg oral tablet (1 source) Aldosterone Antagonist take 1 tablet by mouth once daily Spironolactone 25 MG tablet Take 1 tablet by mouth daily. Active Completed/Discontinued Medications Medication Drug Class(es) Dates Sig (Normalized) Sig (Original) 1 ml HYDROmorphone hydrochloride 1 mg/ml cartridge (1 source) Opioid Agonist Start: 03-18-2024 End: 03-18-2024 1 mg, Intravenous, ONCE, 1 dose, On 03/18/24 at 1100 1 ml morphine sulfate 2 mg/ml cartridge (1 source) Opioid Agonist Start: 03-18-2024 End: 03-18-2024 4 mg, Intravenous, ONCE, 1 dose, On 03/18/24 at 1015 2 ml ondansetron 2 mg/ml injection (1 source) Serotonin-3 Receptor Antagonist Start: 03-18-2024 End: 03-18-2024 4 mg, Intravenous, ONCE, 1 dose, On 03/18/24 at 0945 VERIFY LINKED PATCH PLACEMENT (1 source) Start: 03-18-2024 End: 03-18-2024 Other, EVERY 12 HOURS, First dose on 03/18/24 at 2100, Until Discontinued, Confirm continued adhesion of nicotine 21 mg/24hr patch at documented site. Problems Problem Classification Problem Date Documented Da te Episodic/Chronic Essential hypertension (2 sources) Essential (primary) hypertension; Translations: [Essential (primary) hypertension] Onset: 03-23-2024 Chronic Nonspecific chest pain (5 sources) Chest pain; Translations: [Chest pain, unspecified] Onset: 03-18-2024 03-18-2024 Episodic Other circulatory disease (1 source) H/O: heart disorder; Translations: [Personal history of other diseases of the circulatory system] 03-18-2024 Episodic Other circulatory disease (4 sources) Personal history of other diseases of the circulatory system; Translations: [Personal history of other diseases of the circulatory system] Onset: 03-18-2024 Episodic Other lower respiratory disease (2 sources) Shortness of breath; Translations: [Shortness of breath] Onset: 03-23-2024 Episodic Results Test Name Value Interpretation Reference Range Facility BASIC METABOLIC PANELon 02-27 Anion gap [Moles/Vol] 17 mmol/L Normal 10-20 [facility] Comment on above: Order Comment: [facility] has implemented the eGFR calculation approach that does not have a coefficient for race that conforms to the NKF-ASN Task Force Recommendations. Performed By: #### L [id number] #### [facility] [address] [place] [address] Daniel Kimball M.D. [id number] Calcium [Mass/Vol] 8.6 mg/dL Normal 8.4-10.2 [facility] Comment on above: Order Comment: [facility] has implemented the eGFR calculation approach that does not have a coefficient for race that conforms to the NKF-ASN Task Force Recommendations. Performed By: #### L [id number] #### [facility] [address] [place] [address] Daniel Kimball M.D. [id number] Chloride [Moles/Vol] 104 mmol/L Normal 98-108 [facility] Comment on above: Order Comment: [facility] has implemented the eGFR calculation approach that does not have a coefficient for race that conforms to the NKF-ASN Task Force Recommendations. Performed By: #### L [id number] #### [facility] [address] [place] [address] Daniel Kimball M.D. [id number] Creatinine [Mass/Vol] 1.10 mg/dL Normal 0.50-1.30 [facility] Comment on above: Order Comment: [facility] has implemented the eGFR calculation approach that does not have a coefficient for race that conforms to the NKF-ASN Task Force Recommendations. Performed By: #### L [id number] #### [facility] [address] [place] [address] Daniel Kimball M.D. [id number] EGFR 79 mL/min/1.73 m2 Normal >=60 [facility] Comment on above: Order Comment: [facility] has implemented the eGFR calculation approach that does not have a coefficient for race that conforms to the NKF-ASN Task Force Recommendations. Result Comment: Yasmin mated GFR was calculated using the 2020 CKD-EPI creatinine equation. Performed By: #### L [id number] #### [facility] [address] [place] [address] Daniel Kimball M.D. [id number] Glucose [Mass/Vol] 127 mg/dL High 65-99 [facility] Comment on above: Order Comment: [facility] has implemented the eGFR calculation approach that does not have a coefficient for race that conforms to the NKF-ASN Task Force Recommendations. Performed By: #### L [id number] #### [facility] [address] [place] [address] Daniel Kibmall M.D. [id number] HCO3 (Bld) [Moles/Vol] 21 mmol/L Normal 21-32 [facility] Comment on above: Order Comment: [facility] has implemented the eGFR calculation approach that does not have a coefficient for race that conforms to the NKF-ASN Task Force Recommendations. Performed By: #### L [id number] #### [facility] [address] [place] [address] Daniel Kimball M.D. [id number] Potassium [Moles/Vol] 3.6 mmol/L Normal 3.5-5.1 [facility] Comment on above: Order Comment: [facility] has implemented the eGFR calculation approach that does not have a coefficient for race that conforms to the NKF-ASN Task Force Recommendations. Result Comment: Slig htly Hemolyzed Performed By: #### L [id number] #### [facility] [address] [place], [place] [id number] Daniel Kimball M.D. [id number] Sodium [Moles/Vol] 138 mmol/L Normal 135-145 [facility] Comment on above: Order Comment: [facility] has implemented the eGFR calculation approach that does not have a coefficient for race that conforms to the NKF-ASN Task Force Recommendations. Performed By: #### L [id number] #### [facility] [address] [place], [place] [id number] Daniel Kimball M.D. [id number] Urea nitrogen [Mass/Vol] 12 mg/dL Normal 8-25 [facility] Comment on above: Order Comment: [facility] has implemented the eGFR calculation approach that does not have a coefficient for race that conforms to the NKF-ASN Task Force Recommendations. Performed By: #### L [id number] #### [facility] [address] [place], [place] [id number] Daniel Kimball M.D. [id number] Urea nitrogen/Creatinine [Mass ratio] 10.9 mg/mg Normal 10.0-20.0 [facility] Comment on above: Order Comment: [facility] has implemented the eGFR calculation approach that does not have a coefficient for race that conforms to the NKF-ASN Task Force Recommendations. Performed By: #### L [id number] #### [facility] [address] [place], [place] [id number] Daniel Kimball M.D. [id number] CBC WITH AUTO DIFFERENTIALon 03-24-2024 AUTO NRBC 0.0 % Normal [facility] Comment on above: Performed By: #### L [id number] #### [facility] [address] [place] [address] Daniel Kimball M.D. [id number] AUTO NRBC ABS COUNT 0.00 K/mcL Normal 0.00-0.00 [facility] Comment on above: Performed By: #### L [id number] #### [facility] [address] [place] [address] Daniel Kimball M.D. [id number] BASOPHILS ABSOLUTE COUNT 0.04 K/mcL Normal 0.00-0.30 [facility] Comment on above: Performed By: #### L [id number] #### [facility] [address] [place] [address] Daniel Kimball M.D. [id number] Basophils/100 WBC (Bld) 0.5 % Normal [facility] Comment on above: Performed By: #### Jarad [id number] #### [facility] [address] [place] [address] Daniel Kimball M.D. [id number] Eosinophils (Bld) [#/Vol] 0.21 10*3/uL Normal 0.00-0.50 [facility] Comment on above: Performed By: #### L [id number] #### [facility] [address] [place] [address] Daniel Kimball M.D. [id number] Eosinophils/100 WBC (Bld) 2.5 % Normal [facility] Comment on above: Performed By: #### L [id number] #### [facility] [address] [place] [address] Daniel Kimball M.D. [id number] Erythrocyte distribution width (RBC) [Ratio] 12.6 % Normal 11.6-14.8 [facility] Comment on above: Performed By: #### L [id number] #### [facility] [address] [place] [address] Daniel Kimball M.D. [id number] Hematocrit (Bld) [Volume fraction] 39.2 % Low 41.0-53.0 [facility] Comment on above: Performed By: #### L [id number] #### [facility] [address] [place] [address] Daniel Kimball M.D. [id number] Hemoglobin (Bld) [Mass/Vol] 13.3 g/dL Low 13.5-17.5 [facility] Comment on above: Performed By: #### L [id number] #### [facility] [address] [place] [address] Daniel Kimball M.D. [id number] IG ABSOLUTE 0.06 K/mcL Normal 0.00-0.30 [facility] Comment on above: Performed By: #### L [id number] #### [facility] [address] [place] [address] Daniel Kimball M.D. [id number] IG PERCENT 0.70 % Normal [facility] Comment on above: Result Comment: The IG parameter is the percentage of metamyelocytes, myelocytes and promyelocytes. An immature granulocyte count (IG) of 1% or more suggests the possibility of infection, an IG count of 3% is very likely related to an infection. Performed By: #### L [id number] #### [facility] [address] [place] [address] Daniel Kimball M.D. [id number] Lymphocytes (Bld) [#/Vol] 2.54 10*3/uL Normal 0.90-4.00 [facility] Comment on above: Performed By: #### L [id number] #### [facility] [address] [place] [address] Daniel Kimball M.D. [id number] Lymphocytes/100 WBC (Bld) 30.7 % Normal [facility] Comment on above: Performed By: #### Jarad [id number] #### [facility] [address] [place] [address] Daniel Kimball M.D. [id number] MCH (RBC) [Entitic mass] 28.5 pg Normal 26.0-34.0 [facility] Comment on above: Performed By: #### Jarad [id number] #### [facility] [address] [place] [address] Daniel Kimball M.D. [id number] MCV (RBC) [Entitic vol] 83.9 fL Normal 80.0-100.0 [facility] Comment on above: Performed By: #### Jarad [id number] #### [facility] [address] [place] [address] Daniel Kimball M.D. [id number] MEAN CORPUSCULAR HEMOGLOBIN CONC 33.9 g/dL Normal 31.0-37.0 [facility] Comment on above: Performed By: #### Jarad [id number] #### [facility] [address] [place] [address] Dnaiel Kimball M.D. [id number] Monocytes (Bld) [#/Vol] 0.73 10*3/uL Normal 0.30-0.90 [facility] Comment on above: Performed By: #### Jarad [id number] #### [facility] [address] [place] [address] Daniel Kimball M.D. [id number] Monocytes/100 WBC (Bld) 8.8 % Normal [facility] Comment on above: Performed By: #### Jarad [id number] #### [facility] [address] [place], [place] [address]George Kimball M.D. [id number] NEUTROPHILS ABSOLUTE COUNT 4.69 K/mcL Normal 1.70-7.00 [facility] Comment on above: Performed By: #### Jarad [id number] #### [facility] [address] [place], [place] [address] Daniel Kimball M.D. [id number] Neutrophils/100 WBC (Bld) 56.8 % Normal [facility] Comment on above: Performed By: #### Jarad [id number] #### [facility] [address] [place] [address] Daniel Kimball M.D. [id number] Platelet mean volume (Bld) [Entitic vol] 10.1 fL Normal 9.4-12.4 [facility] Comment on above: Performed By: #### Jarad [id number] #### [facility] [address] [place], [place] [address] Daniel Kimball M.D. [id number] Platelets (Bld) [#/Vol] 297 10*3/uL Normal 150-400 [facility] Comment on above: Performed By: #### Jarad [id number] #### [facility] [address] [place], [place] [address] Daniel Kimball M.D. [id number] RBC (Bld) [#/Vol] 4.67 10*6/uL Normal 4.50-5.90 [facility] Comment on above: Performed By: #### L [id number] #### [facility] [address] [place], [place] [address] Daniel Kimball M.D. [id number] WBC (Bld) [#/Vol] 8.27 10*3/uL Normal 4.50-11.00 [facility] Comment on above: Performed By: #### Jarad [id number] #### [facility] [address] [place], [place] [address] Daniel Kimball M.D. [id number] [facility] -- Attestation signed by Kai Baker MD at 03/24/2024 8:55 PM I saw and examined Catherine Garnett independently reviewing labs, imaging and consultation notes on 03/24/24 . I was physically present for the chauhan portions of the services provided. I agree with the discharge plan of resident physician - with the following additions and exceptions. Catherine Garnett is a 53 y.o. male with a history of CAD s/p CABG and PCI, asthma, bipolar 2 disorder, HTN, HLD, who presented to [facility] 03/23/2024 with worsening SOB and chest pain. Symptoms are most likely related to acute asthma exacerbation as patient noted most of his symptoms once he was driving into the cold weather, has been using albuterol as needed but currently not have any medications. Similar presentation 2 weeks ago where he had a stress test which was unremarkable. He will travel back to [place], will get new refills from PCP and consideration of a combination bronchodilator/GC inhaler given severity of symptoms. Physical: NAD, CTAB, breathing comfortably, abd nondistended, no LE edema. Kai Baker MD, FACP [facility] DISCHARGE SUMMARY Catherine Garnett Account: [id number] Admitted: 03/23/2024 Discharge Date/Time: 03/24/24 12:43 PM _ Handoff to PCP Routine hospital follow up Close follow-up with PCP - recommend outpatient PFT, consider maintenance inhaler with ICS. Follow-up with cardiology, patient reports having appointment sometime in 03/2024. Clinical Summary Catherine Garnett is a 53 y.o. male with a history of CAD s/p CABG and recent PCI (12/2023), asthma, bipolar 2 disorder, HTN, HLD, tobacco use disorder, recent admission at [facility] from 03/14/2024 to 03/15/2024 due to atypical chest pain who presented to [facility] 03/23/2024 with worsening SOB and chest pain. Found to have suspected asthma exacerbation in setting of not having home albuterol. EKG, troponin, chest imaging, respiratory PCR and sputum unrevealing. Clinically improved with breathing treatments. Asthma exacerbation: Likely secondary due to weather changes, not having home albuterol due to travel, chronic tobacco use. Admit CXR non-acute, no leukocytosis, respiratory PCR and sputum unrevealing. Clinically improved with DuoNebs. Recommend outpatient PFT, consider maintenance inhaler with ICS. Continued albuterol inhaler prn. Chest pain: Characterized as squeezing sensation around heart, at rest and on exertion; similar sensation as prior SC's. Recent admission at [facility] 03/14-03/15 for atypical chest pain felt to have MSK etiology - was started on PPI as well at this time but patient had no additional relief of symptoms. NM stress test 03/12/24 without evidence of ischemia. Troponin 13>17 on admission. EKG NSR with PAC; no signs of acute ischemia. Telemetry with occasional PVCs. Continued home ranolazine. Deferred repeat nuclear stress test this admission to outpatient; reportedly has follow-up with cardiology in 03/2024. CAD s/p CABG: Per history, CABG in 03/2022 (Dr. Marquis). [facility] 01/20/24 with PCI/JOSESITO of proximal LAD due to restenosis. Echo 03/11/24 LVEF 65%. NM stress test 03/12/24 without evidence of ischemia. Continued home bASA, Plavix, spironolactone. HTN urgency: BP 200/100 on admission. Continued home losartan, coreg. Bipolar 2 disorder: Continued home Abilify, quetiapine 50mg. HLD: Continued home Lipitor, ezetimibe. Tobacco use disorder: Currently smoking 6 to 10 cigarettes a day. Former 1 to 2 pack a day for 45 years. Continued nicotine patch. Encouraged cessation. Discharge Medications Discharge Medications Medications To Continue Details albuterol 90 mcg/actuation inhaler Inhale 2 (two) puffs every 4 (four) hours as needed for wheezing . ARIPiprazole 10 MG disintegrating tablet Commonly known as: ABILIFY Dissolve 1 (one) tablet (10 mg total) on top of tongue daily . aspirin 81 mg chewable tablet Chew and Swallow 1 (one) tablet (81 mg total) daily . atorvastatin 80 MG tablet Commonly known as: LIPITOR Take 1 (one) tablet (80 mg total) by mouth daily . carvediloL 12.5 MG tablet Commonly known as: COREG Take 1 (one) tablet (12.5 mg total) by mouth 2 (two) times a day . clopidogreL 75 mg tablet Commonly known as: PLAVIX Take 1 (one) tablet (75 mg total) by mouth daily . ezetimibe 10 mg tablet Commonly known as: ZETIA Take 1 (one) tablet (10 mg total) by mouth daily . hydrocortisone 1 % cream Apply topically 2 (two) times a day . losartan 50 MG tablet Commonly known as: COZAAR Take 1 (one) tablet (50 mg total) by mouth daily . nicotine 21 mg/24 hr Commonly known as: NICODERM CQ Place 1 (one) patch on the skin daily . QUEtiapine 50 MG tablet C (more content not included)... Normal [facility] RESPIRATORY PCR PANELon 12-2 RESPIRATORY PCR PANEL INFLUENZA A FILMARRAY Not Detected INFLUENZA B FILM ARRAY Not Detected PARAINFLUENZA VIRUS 1 Not Detected PARAINFLUENZA VIRUS 2 Not Detected PARAINFLUENZA VIRUS 3 Not Detected PARAINFLUENZA VIRUS 4 Not Detected RESPIRATORY SYNCYTIAL VIRUS FILM ARRAY Not Detected HUMAN METAPNEUMOVIRUS Not Detected HUMAN RHINOVIRUS/ENTEROVIRUS Not Detected ADENOVIRUS FILM ARRAY Not Detected CORONAVIRUS 229E Not Detected CORONAVIRUS HKU1 Not Detected CORONAVIRUS NL63 Not Detected CORONAVIRUS OC43 Not Detected BORDETELLA PARAPERTUSSIS Not Detected BORDETELLA PERTUSSIS Not Detected MYCOPLASMA PNEUMONIAE Not Detected CHLAMYDIA PNEUMONIAE Not Detected SARS-COV-2 (BIOFIRE) Not Detected Normal Not Detected [facility] Comment on above: Performed By: #### L [id number] #### [facility] [address] [place] [address] Daniel Kimball M.D. [id number] SPUTUM AEROBIC CULTUREon SPUTUM AEROBIC CULTURE RESPIRATORY CULTURE Normal [place] after 48 hrs GRAM STAIN RESULT No Epithelial Cells Seen Many WBC Many Mixed [place] Normal [facility] Comment on above: Performed By: #### L [id number] #### [facility] [address] [place] [address] Daniel Kimball M.D. [id number] TROPONINon 03-24-2024 TROPONIN T DELTA CHANGE INTERPRETATION No biomarker evidence of cardiac injury. Normal [facility] Comment on above: Performed By: #### [id number] #### [facility] [address] [place] [address] Daniel Kimball M.D. [id number] TROPONIN T DELTA DIFFERENCE 0 ng/L Normal < = -/+ 7 change [facility] Comment on above: Performed By: #### [id number] #### [facility] [address] [place] [address] Daniel Kimball M.D. [id number] TROPONIN T NG/L 13 ng/L Normal <=22 [facility] Comment on above: Performed By: #### [id number] #### [facility] [address] [place] [address] Daniel Kimball M.D. [id number] TROPONIN T DELTA CHANGE INTERPRETATION No biomarker evidence of cardiac injury. Normal [facility] Comment on above: Performed By: #### [id number] #### [facility] [address] [place] [address] Daniel Kimball M.D. [id number] TROPONIN T DELTA DIFFERENCE 0 ng/L Normal < = -/+ 7 change [facility] Comment on above: Performed By: #### [id number] #### [facility] [address] [place] [address] Daniel Kimball M.D. [id number] TROPONIN T NG/L 13 ng/L Normal <=22 [facility] Comment on above: Performed By: #### [id number] #### [facility] [address] [place], [place] [address] Daniel Kimball M.D. [id number] BASIC METABOLIC PANELon 12-2 Anion gap [Moles/Vol] 15 mmol/L Normal 10-20 [facility] Comment on above: Order Comment: [facility] has implemented the eGFR calculation approach that does not have a coefficient for race that conforms to the NKF-ASN Task Force Recommendations. Performed By: #### [id number] #### [facility] [address] [place], [place] [address] Daniel Kimball M.D. [id number] Calcium [Mass/Vol] 9.0 mg/dL Normal 8.4-10.2 [facility] Comment on above: Order Comment: [facility] has implemented the eGFR calculation approach that does not have a coefficient for race that conforms to the NKF-ASN Task Force Recommendations. Performed By: #### [id number] #### [facility] [facility] [address] [place] [address] [id number] Daniel Kimball M.D. [id number] Chloride [Moles/Vol] 106 mmol/L Normal 98-108 [facility] Comment on above: Order Comment: [facility] has implemented the eGFR calculation approach that does not have a coefficient for race that conforms to the NKF-ASN Task Force Recommendations. Performed By: #### [id number] #### [facility] [address] [place], [place] [id number] Daniel Kimball M.D. [id number] Creatinine [Mass/Vol] 1.09 mg/dL Normal 0.50-1.30 [facility] Comment on above: Order Comment: [facility] has implemented the eGFR calculation approach that does not have a coefficient for race that conforms to the NKF-ASN Task Force Recommendations. Performed By: #### [id number] #### [facility] [address] [place] [address] 44704 Daniel Kimball M.D. [id number] EGFR 80 mL/min/1.73 m2 Normal >=60 [facility] Comment on above: Order Comment: [facility] has implemented the eGFR calculation approach that does not have a coefficient for race that conforms to the NKF-ASN Task Force Recommendations. Result Comment: Yasmin mated GFR was calculated using the 2020 CKD-EPI creatinine equation. Performed By: #### [id number] #### [facility] [address] [place] [address] 97167 Daniel Kimball M.D. [id number] Glucose [Mass/Vol] 106 mg/dL High 65-99 [facility] Comment on above: Order Comment: [facility] has implemented the eGFR calculation approach that does not have a coefficient for race that conforms to the NKF-ASN Task Force Recommendations. Performed By: #### [id number] #### [facility] [address] [place] [address] 42837 Daniel Kimball M.D. [id number] HCO3 (Bld) [Moles/Vol] 22 mmol/L Normal 21-32 [facility] Comment on above: Order Comment: [facility] has implemented the eGFR calculation approach that does not have a coefficient for race that conforms to the NKF-ASN Task Force Recommendations. Performed By: #### [id number] #### [facility] [address] [place] [address] 65274 Daniel Kimball M.D. [id number] Potassium [Moles/Vol] 3.8 mmol/L Normal 3.5-5.1 [facility] Comment on above: Order Comment: [facility] has implemented the eGFR calculation approach that does not have a coefficient for race that conforms to the NKF-ASN Task Force Recommendations. Performed By: #### 4 [id number] #### [facility] [address] [place] [address] 43138 Daniel Kimball M.D. [id number] Sodium [Moles/Vol] 139 mmol/L Normal 135-145 [facility] Comment on above: Order Comment: [facility] has implemented the eGFR calculation approach that does not have a coefficient for race that conforms to the NKF-ASN Task Force Recommendations. Performed By: #### [id number] #### [facility] [address] [place], [place] [id number] Daniel Kimball M.D. [id number] Urea nitrogen [Mass/Vol] 11 mg/dL Normal 8-25 [facility] Comment on above: Order Comment: [facility] has implemented the eGFR calculation approach that does not have a coefficient for race that conforms to the NKF-ASN Task Force Recommendations. Performed By: #### [id number] #### [facility] [address] [place], [place] [id number] Daniel Kimball M.D. [id number] Urea nitrogen/Creatinine [Mass ratio] 10.1 mg/mg Normal 10.0-20.0 [facility] Comment on above: Order Comment: [facility] has implemented the eGFR calculation approach that does not have a coefficient for race that conforms to the NKF-ASN Task Force Recommendations. Performed By: #### 4 [id number] #### [facility] [address] [place] [address] 08292 Daniel Kimball M.D. [id number] CBC WITH AUTO DIFFERENTIALon 03-23-2024 AUTO NRBC 0.0 % Normal [facility] Comment on above: Performed By: #### L [id number] #### [facility] [address] [place] [address] Daniel Kimball M.D. [id number] AUTO NRBC ABS COUNT 0.00 K/mcL Normal 0.00-0.00 [facility] Comment on above: Performed By: #### L [id number] #### [facility] [address] [place] [address] Daniel Kimball M.D. [id number] BASOPHILS ABSOLUTE COUNT 0.03 K/mcL Normal 0.00-0.30 [facility] Comment on above: Performed By: #### L [id number] #### [facility] [address] [place] [address] Daniel Kimball M.D. [id number] Basophils/100 WBC (Bld) 0.3 % Normal [facility] Comment on above: Performed By: #### Jarad [id number] #### [facility] [address] [place] [address] Daniel Kimball M.D. [id number] Eosinophils (Bld) [#/Vol] 0.21 10*3/uL Normal 0.00-0.50 [facility] Comment on above: Performed By: #### L [id number] #### [facility] [address] [place] [address] Daniel Kimball M.D. [id number] Eosinophils/100 WBC (Bld) 2.3 % Normal [facility] Comment on above: Performed By: #### L [id number] #### [facility] [address] [place], [place] [id number] Daniel Kimball M.D. [id number] Erythrocyte distribution width (RBC) [Ratio] 12.7 % Normal 11.6-14.8 [facility] Comment on above: Performed By: #### L [id number] #### [facility] [address] [place] [address] Daniel Kimball M.D. [id number] Hematocrit (Bld) [Volume fraction] 41.8 % Normal 41.0-53.0 [facility] Comment on above: Performed By: #### L [id number] #### [facility] [address] [place], [place] [address] Daniel Kimball M.D. [id number] Hemoglobin (Bld) [Mass/Vol] 14.1 g/dL Normal 13.5-17.5 [facility] Comment on above: Performed By: #### L [id number] #### [facility] [address] [place] [address] Daniel Kimball M.D. [id number] IG ABSOLUTE 0.06 K/mcL Normal 0.00-0.30 [facility] Comment on above: Performed By: #### L [id number] #### [facility] [address] [place] [address] Daniel Kimball M.D. [id number] IG PERCENT 0.70 % Normal [facility] Comment on above: Result Comment: The IG parameter is the percentage of metamyelocytes, myelocytes and promyelocytes. An immature granulocyte count (IG) of 1% or more suggests the possibility of infection, an IG count of 3% is very likely related to an infection. Performed By: #### L [id number] #### [facility] [address] [place] [address] Daniel Kimball M.D. [id number] Lymphocytes (Bld) [#/Vol] 2.23 10*3/uL Normal 0.90-4.00 [facility] Comment on above: Performed By: #### L [id number] #### [facility] [address] [place] [address] Daniel Kimball M.D. [id number] Lymphocytes/100 WBC (Bld) 24.3 % Normal [facility] Comment on above: Performed By: #### L [id number] #### [facility] [address] [place] [address] Daniel Kimball M.D. [id number] MCH (RBC) [Entitic mass] 28.0 pg Normal 26.0-34.0 [facility] Comment on above: Performed By: #### Jarad [id number] #### [facility] [address] [place] [address] Daniel Kimball M.D. [id number] MCV (RBC) [Entitic vol] 83.1 fL Normal 80.0-100.0 [facility] Comment on above: Performed By: #### Jarad [id number] #### [facility] [address] [place] [address] Daniel Kimball M.D. [id number] MEAN CORPUSCULAR HEMOGLOBIN CONC 33.7 g/dL Normal 31.0-37.0 [facility] Comment on above: Performed By: #### Jarad [id number] #### [facility] [address] [place] [address] Daniel Kimball M.D. [id number] Monocytes (Bld) [#/Vol] 0.95 10*3/uL High 0.30-0.90 [facility] Comment on above: Performed By: #### Jarad [id number] #### [facility] [address] [place] [address] Daniel Kimball M.D. [id number] Monocytes/100 WBC (Bld) 10.3 % Normal [facility] Comment on above: Performed By: #### Jarad [id number] #### [facility] [address] [place], [place] [address] Daniel Kimball M.D. [id number] NEUTROPHILS ABSOLUTE COUNT 5.70 K/mcL Normal 1.70-7.00 [facility] Comment on above: Performed By: #### Jarad [id number] #### [facility] [address] [place] [address] 93721 Daniel Kimball M.D. [id number] Neutrophils/100 WBC (Bld) 62.1 % Normal [facility] Comment on above: Performed By: #### Jarad [id number] #### [facility] [address] [place] [address] 52587 Daniel Kimball M.D. [id number] Platelet mean volume (Bld) [Entitic vol] 9.6 fL Normal 9.4-12.4 [facility] Comment on above: Performed By: #### Jarad [id number] #### [facility] [address] [place], [place] [address] Daniel Kimball M.D. [id number] Platelets (Bld) [#/Vol] 346 10*3/uL Normal 150-400 [facility] Comment on above: Performed By: #### L [id number] #### [facility] [address] [place] [address] 61124George Kimball M.D. [id number] RBC (Bld) [#/Vol] 5.03 10*6/uL Normal 4.50-5.90 [facility] Comment on above: Performed By: #### L [id number] #### [facility] [address] [place] [address] 63448 Daniel Kimball M.D. [id number] WBC (Bld) [#/Vol] 9.18 10*3/uL Normal 4.50-11.00 [facility] Comment on above: Performed By: #### L [id number] #### [facility] [address] [place] [address] 46969 Daniel Kimball M.D. [id number] ED Prov Noteon 03-23-2024 ED Prov Note ED Physician Note: NAME: Catherine Garnett 53 y.o. CSN: [id number] PCP: No, Physician History: Chief Complaint: Chest Pain and Shortness of Breath HPI/ROS: Catherine is a 53 y.o. male who presents to the emergency department for evaluation of chest pain, states that it is midsternal, tight, worse with exertion, he has a history of a CABG, had stent placed back in December, he is here visiting, pain at worst today around 11, has not had aspirin, better with nitro, also had some cough, nonproductive for several days, no fever, mild shortness of breath, improved with albuterol. PMHx: Past Medical History: Diagnosis Date Asthma Bipolar 2 disorder (HCC) CHF (congestive heart failure) (HCC) Hyperlipidemia Hypertension PTSD (post-traumatic stress disorder) PMSx: Past Surgical History: Procedure Laterality Date CABG STENT PLACEMENT TONSILLECTOMY VASECTOMY FAM. Hx: History reviewed. No pertinent family history. SOC. Hx: Social History Socioeconomic History Marital status: Single Tobacco Use Smoking status: Every Day Types: Cigarettes Smokeless tobacco: Never Substance and Sexual Activity Alcohol use: Never Drug use: Not Currently Social Drivers of Health Financial Resource Strain: Low Risk (02/22/2024) Received from [facility] Financial Resource Strain In the past year, have you or any family members you live with been unable to get any of the following when it was really needed? Check all that apply.: None Food Insecurity: No Food Insecurity (03/11/2024) Received from [facility] Hunger Vital Sign Worried About Running Out of Food in the Last Year: Never true Ran Out of Food in the Last Year: Never true Transportation Needs: No Transportation Needs (03/11/2024) Received from [facility] PRAPARE - Transportation Lack of Transportation (Medical): No Lack of Transportation (Non-Medical): No Social Connections: Patient Declined (02/23/2024) Received from [facility] Social Connections How often do you see or talk to people that you care about and feel close to? (For example: talking to friends on the phone, visiting friends or family, going to buddhist or club meetings): Patient declined Housing Stability: Low Risk (03/11/2024) [facility] Housing Stability Vital Sign Unable to Pay for Housing in the Last Year: No Number of Times Moved in the Last Year: 1 Homeless in the Last Year: No MEDs: No current outpatient medications on file prior to encounter. ALL: No Known Allergies Physical Exam: Patient Vitals for the past 24 hrs: BP Temp Temp src Pulse Resp SpO2 Height Weight 03/23/242121 (!) 162/87 -- -- 67 16 95 % -- -- 03/23/242101 (!) 208/100 -- -- 67 14 95 % -- -- 03/23/242055 -- -- -- -- 18 -- -- -- 03/23/241999 (!) 173/102 -- -- 72 13 96 % -- -- 03/23/241938 (!) 159/100 98.1 degrees F (36.7 degrees C) Oral 75 (!) 19 96 % 5' 10 111.1 kg (245 lb) Physical Exam Nursing note and Vital Signs Reviewed General: Resting comfortably, no acute distress. Eyes: No conjunctival injection, pupils equal HENT: Head atraumatic, Moist mucous membranes Neck: Supple, trachea midline Heart: RRR, well-healed midline scar. Lungs: Breathing comfortably, no hypoxia or distress, faint expiratory wheezing. Abdomen: soft, non-tender, non-distended, no rebound or guarding Extremities: no gross deformities Skin: warm and dry Neurologic: Speaking in full sentences, no facial droop, moves all 4 extremities spontaneously Psychiatric: Answers questions appropriately Laboratory & Radiological Imaging (if done): Labs Reviewed BASIC METABOLIC PANEL - Abnormal; Notable for the following components: Result Value Glucose 106 (*) All other components within normal limits Narrative: [facility] has implemented the eGFR calculation approach that does not have a coefficient for race that conforms to the NKF-ASN Task Force Recommendations. POC VBG LAB(EPOC) - RALS - Abnormal; Notable for the following components: pH, Venous 7.44 (*) pCO2, Aleksandr 36.7 (*) pO2, Aleksandr 44 (*) O2 Sat, Aleksandr 81.4 (*) Glucose 102 (*) All other components within normal limits Narrative: [facility] has implemented the eGFR calculation approach that does not have a coefficient for race that conforms to the NKF-ASN Task Force Recommendations. CBC WITH AUTO DIFFERENTIAL - Abnormal; Notable for the following components: Monocytes Abs 0.95 (*) All other components within normal limits HEPATIC FUNCTION PANEL - Normal CBC AND DIFFERENTIAL Narrative: The following orders were created for panel order CBC w/ Diff. Procedure Abnormality Status --------- ------ CBC Auto Differential[[id number] ] Abnormal Final result Please view results for these tests on the individual orders. TROPONIN TROPONIN OBTAIN VENOUS BLOOD GASES AND PERFORM XR Ches (more content not included)... Normal [facility] H AND Taco 03-23-2024 H AND P -- Attestation signed by Kai Baker MD at 03/24/2024 8:55 PM I saw and examined Catherine Garnett independently reviewing labs, imaging and consultation notes on 03/24/24 . I was physically present for the chauhan portions of the services provided. I agree with the discharge plan of resident physician - with the following additions and exceptions. Catherine Garnett is a 53 y.o. male with a history of CAD s/p CABG and PCI, asthma, bipolar 2 disorder, HTN, HLD, who presented to [facility] 03/23/2024 with worsening SOB and chest pain. Symptoms are most likely related to acute asthma exacerbation as patient noted most of his symptoms once he was driving into the cold weather, has been using albuterol as needed but currently not have any medications. Similar presentation 2 weeks ago where he had a stress test which was unremarkable. He will travel back to [place], will get new refills from PCP and consideration of a combination bronchodilator/GC inhaler given severity of symptoms. Physical: NAD, CTAB, breathing comfortably, abd nondistended, no LE edema. Kai Baker MD, FACP [facility] H&P Note 03/23/24 Catherine Garnett 1970 [id number] Assessment/Plan: Catherine Ganrett is a 53 y.o. male with a history of CAD s/p CABG and PCI, asthma, bipolar 2 disorder, HTN, HLD, who presented to [facility] 03/23/2024 with worsening SOB and chest pain. Of note, recent admission at [facility] from 03/14/2024 to 03/15/2024 due to atypical chest pain. Concern for asthma exacerbation: Likely secondary due to cigarette smoke. Less likely URI/CAP due to no systemic symptoms. Not on home oxygen. CBC within normal limits. Chest x-ray unremarkable on admission. Home regimen: Asthma inhaler 2 puffs a day as needed. Respiratory PCR, sputum culture pending. DuoNebs every 4 hours scheduled and albuterol nebulizer as needed. Consider pulmonology consult if symptoms do not improve with treatment. Atypical chest pain: Troponins 13>17 on admission. EKG sinus rhythm with PAC; no signs of ischemia. Home regimen: ranolazine 500 mg twice daily. Will continue inpatient. Patient recently admitted to [facility] for atypical chest pain (03/14/2024-03/15/2024 ). At that admission troponins unremarkable and EKG not concerning for ischemic seizures. CAD s/p CABG x3 (03/2022): CABG x3 of LAD, RPDA and LPDA performed by Dr. Marquis. As per chart review, most recent echo with EF 60% (10/2023). LHC (01/20/2024) with PCI/JOSESITO of proximal LAD due to restenosis. Home regimen: ASA 81mg daily, Plavix 75mg daily, spirinolactone 25mg daily. Will continue inpatient. Bipolar 2 disorder: Abilify 10mg daily and quetiapine 50mg. Will continue inpatient. HTN: Home regimen: Losartan 50mg daily, and coreg 12.5 mg BID. Will continue inpatient. HLD: Home regimen: Lipitor 80mg daily and ezetimibe 10mg daily. Continue inpatient. Tobacco use disorder: Currently smoking 6 to 10 cigarettes a day. Former 1 to 2 pack a day for 45 years. Refers that he is using nicotine patch to decrease his use. Will continue nicotine patch inpatient. Encourage smoking cessation. DVT Prophylaxis: Lovenox CODE STATUS: Full code Admitted with these risk variables:None. Please see assessment and plan for further details. Current living situation: Home Expected Disposition: TBD Estimated discharge date: TBD Luis Ruggiero MD , See attending attestation for corrections to above note Please call Resident assigned in treatment team for first contact, then second year on service. After hours please call Over night resident signed into treatment team Chief Complaint: Chest pain and SOB History of Present Illness: Patient evaluated at bedside and found no acute distress. Patient mentions that he feels okay. Not on home oxygen. Patient presents to the ED today after worsening SOB and chest pain. Refers that he has not been able to walk more than 2 steps without getting out of breath. Refers that this is not usual for him. Mentions that he is also has been having an increasing in dry cough. States that he uses albuterol inhaler with improvement in his breathing but not in chest pain. Refers that today his chest pain has been getting worse. Describes his chest pain as a pressure/tightness in the middle of his chest 9 out of 10 in intensity and radiating to his left shoulder. Refers that he took additional aspirin without improvement in his symptoms. He also mentions that after receiving nitroglycerin in the ED his chest pain went down to a 4 out of 10 in intensity. Patient refers that he is still smoking, however he smokes around 6 to 10 cigarettes a day. In the past but smoking 1 to 2 packs/day for around 45 years. Refers that he is not drinking and not using ill (more content not included)... Normal [facility] HEPATIC FUNCTION PANELon Albumin [Mass/Vol] 3.6 g/dL Normal 3.2-5.2 [facility] Comment on above: Performed By: #### [id number] #### [facility] [address] [place] [address] 67824 Daniel Kimball M.D. [id number] ALP [Catalytic activity/Vol] 87 U/L Normal 40-150 [facility] Comment on above: Performed By: #### 4 [id number] #### [facility] [address] [place] [address] 31210 Daniel Kimball M.D. [id number] ALT [Catalytic activity/Vol] 36 U/L Normal 0-50 U/L [facility] Comment on above: Performed By: #### 4 [id number] #### [facility] [address] [place], [place] [address] Daniel Kimball M.D. [id number] AST [Catalytic activity/Vol] 26 U/L Normal 0-50 U/L [facility] Comment on above: Performed By: #### 4 [id number] #### [facility] [address] [place] [address] Daniel Kimball M.D. [id number] Bilirubin [Mass/Vol] 0.3 mg/dL Normal 0.0-1.3 [facility] Comment on above: Performed By: #### 4 [id number] #### [facility] [address] [place], [place] [address] Daniel Kimball M.D. [id number] BILIRUBIN, DIRECT < Normal 0.0-0.4 [facility] Comment on above: Performed By: #### 4 [id number] #### [facility] [address] [place], [place] [address] Daniel Kimball M.D. [id number] Protein [Mass/Vol] 7.0 g/dL Normal 6.0-8.0 [facility] Comment on above: Performed By: #### 4 [id number] #### [facility] [address] [place], [place] [address] Daniel Kimball M.D. [id number] POC VBG LAB[facility] 05-24-2023 BASE EXCESS, VENOUS 0.7 Normal -2.0-2.0 [facility] Comment on above: Order Comment: [facility] has implemented the eGFR calculation approach that does not have a coefficient for race that conforms to the NKF-ASN Task Force Recommendations. Performed By: #### L [id number] #### [facility] [address] [place] [address] 15772 Daniel Kimball M.D. [id number] CALCIUM IONIZED 4.6 mg/dL Normal 4.5-5.3 [facility] Comment on above: Order Comment: [facility] has implemented the eGFR calculation approach that does not have a coefficient for race that conforms to the NKF-ASN Task Force Recommendations. Performed By: #### L [id number] #### [facility] [address] [place], [place] [address] Daniel Kimball M.D. [id number] Chloride [Moles/Vol] 105 mmol/L Normal 98-108 [facility] Comment on above: Order Comment: [facility] has implemented the eGFR calculation approach that does not have a coefficient for race that conforms to the NKF-ASN Task Force Recommendations. Performed By: #### L [id number] #### [facility] [address] [place] [address] Daniel Kimball M.D. [id number] CO2 [Moles/Vol] 24 mmol/L Normal 21-32 [facility] Comment on above: Order Comment: [facility] has implemented the eGFR calculation approach that does not have a coefficient for race that conforms to the NKF-ASN Task Force Recommendations. Performed By: #### L [id number] #### [facility] [address] [place], [place] [address] Daniel Kimball M.D. [id number] Creatinine [Mass/Vol] 1.08 mg/dL Normal 0.50-1.30 [facility] Comment on above: Order Comment: [facility] has implemented the eGFR calculation approach that does not have a coefficient for race that conforms to the NKF-ASN Task Force Recommendations. Performed By: #### L [id number] #### [facility] [address] [place] [address] Daniel Kimball M.D. [id number] Glucose [Mass/Vol] 102 mg/dL High 65-99 [facility] Comment on above: Order Comment: [facility] has implemented the eGFR calculation approach that does not have a coefficient for race that conforms to the NKF-ASN Task Force Recommendations. Performed By: #### L [id number] #### [facility] [address] [place], [place] [id number] Daniel Kimball M.D. [id number] Hematocrit (Bld) [Volume fraction] 46 % Normal 41-53 [facility] Comment on above: Order Comment: [facility] has implemented the eGFR calculation approach that does not have a coefficient for race that conforms to the NKF-ASN Task Force Recommendations. Performed By: #### L [id number] #### [facility] [address] [place], [place] [id number] Daniel Kimball M.D. [id number] HEMOGLOBIN, CALCULATED 15.5 g/dL Normal 13.5-17.5 [facility] Comment on above: Order Comment: [facility] has implemented the eGFR calculation approach that does not have a coefficient for race that conforms to the NKF-ASN Task Force Recommendations. Performed By: #### L [id number] #### [facility] [address] [place] [address] Daniel Kimball M.D. [id number] Oxygen saturation in Blood 81.4 % High 40.0-70.0 [facility] Comment on above: Order Comment: [facility] has implemented the eGFR calculation approach that does not have a coefficient for race that conforms to the NKF-ASN Task Force Recommendations. Performed By: #### L [id number] #### [facility] [address] [place], [place] [address] Daniel Kimball M.D. [id number] PCO2 VENOUS 36.7 mm Hg Low 41.0-51.0 [facility] Comment on above: Order Comment: [facility] has implemented the eGFR calculation approach that does not have a coefficient for race that conforms to the NKF-ASN Task Force Recommendations. Performed By: #### L [id number] #### [facility] [address] [place] [address] Daniel Kimball M.D. [id number] PH VENOUS 7.44 High 7.32-7.42 [facility] Comment on above: Order Comment: [facility] has implemented the eGFR calculation approach that does not have a coefficient for race that conforms to the NKF-ASN Task Force Recommendations. Performed By: #### L [id number] #### [facility] [address] [place] [address] Daniel Kimball M.D. [id number] PO2 VENOUS 44 mm Hg High 25-40 [facility] Comment on above: Order Comment: [facility] has implemented the eGFR calculation approach that does not have a coefficient for race that conforms to the NKF-ASN Task Force Recommendations. Performed By: #### L [id number] #### [facility] [address] [place] [address] Daniel Kimball M.D. [id number] POC GFR 81 mL/min/1.73 m2 Normal >=60 [facility] Comment on above: Order Comment: [facility] has implemented the eGFR calculation approach that does not have a coefficient for race that conforms to the NKF-ASN Task Force Recommendations. Result Comment: Yasmin mated GFR was calculated using the 2020 CKD-EPI creatinine equation. Performed By: #### L [id number] #### [facility] [address] [place] [address] Daniel Kimball M.D. [id number] POC LACTATE 1.9 mmol/L Normal 0.6-2.0 [facility] Comment on above: Order Comment: [facility] has implemented the eGFR calculation approach that does not have a coefficient for race that conforms to the NKF-ASN Task Force Recommendations. Performed By: #### L [id number] #### [facility] [address] [place] [address] Daniel Kimball M.D. [id number] Potassium [Moles/Vol] 3.8 mmol/L Normal 3.5-5.1 [facility] Comment on above: Order Comment: [facility] has implemented the eGFR calculation approach that does not have a coefficient for race that conforms to the NKF-ASN Task Force Recommendations. Performed By: #### L [id number] #### [facility] [address] [place], [place] [id number] Daniel Kimball M.D. [id number] Sodium [Moles/Vol] 142 mmol/L Normal 135-145 [facility] Comment on above: Order Comment: [facility] has implemented the eGFR calculation approach that does not have a coefficient for race that conforms to the NKF-ASN Task Force Recommendations. Performed By: #### L [id number] #### [facility] [address] [place], [place] [id number] Daniel Kimball M.D. [id number] Urea nitrogen [Mass/Vol] 10 mg/dL Normal 8-25 [facility] Comment on above: Order Comment: [facility] has implemented the eGFR calculation approach that does not have a coefficient for race that conforms to the NKF-ASN Task Force Recommendations. Performed By: #### L [id number] #### [facility] [address] [place], [place] [id number] Daniel Kimball M.D. [id number] TROPONINon 03-23-2024 TROPONIN T DELTA CHANGE INTERPRETATION No biomarker evidence of cardiac injury. Normal [facility] Comment on above: Performed By: #### [id number] #### [facility] [address] [place], [place] [address] Daniel Kimball M.D. [id number] TROPONIN T DELTA DIFFERENCE 4 ng/L Normal < = -/+ 7 change [facility] Comment on above: Performed By: #### 4 [id number] #### [facility] [address] [place] [address] Daniel Kimball M.D. [id number] TROPONIN T NG/L 17 ng/L Normal <=22 [facility] Comment on above: Performed By: #### 4 [id number] #### [facility] [address] [place] [address] Daniel Kimball M.D. [id number] BASELINE TROPONIN T NG/L 13 ng/L Normal <=22 [facility] Comment on above: Performed By: #### 4 [id number] #### [facility] [address] [place] [address] Daniel Kimball M.D. [id number] TROPONIN T INTERPRETATION Normal Normal [facility] Comment on above: Performed By: #### 4 [id number] #### [facility] [address] [place] [address] Daniel Kimball M.D. [id number] XR CHEST PA/APon 03-23-2024 XR CHEST PA/AP EXAMINATION: XR CHEST PA/AP CLINICAL STATEMENT: ORDERING SYSTEM PROVIDED HISTORY: chest pain, TECHNOLOGIST PROVIDED HISTORY: Illness/Other Reason for exam: chest pain Cancer History: . Surgery, RadiationHistory: . Encounter Type: Initial Additional signs and symptoms: . ORDERING SYSTEM PROVIDED DIAGNOSIS CODES: R07.9 Chest pain with high risk for cardiac etiology Z86.79 History of CAD (coronary artery disease) I10 Hypertension, unspecified type R06.02 Shortness of breath COMPARISON: None. TECHNIQUE: Two AP views of the chest are submitted. FINDINGS: The cardiomediastinal silhouette is not enlarged. There is no pulmonary vascular congestion. The patient is status post median sternotomy. No acute infiltrates are present within the lungs.There is no costophrenic angle blunting. IMPRESSION: No acute cardiopulmonary process in the chest. Workstation ID: [id number] Dictated by: CLEVELAND FERNANDO on WedMar 23, 2024 9:25:28 PM EST Transcribed by: CLEVELAND FERNANDO on WedMar 23, 2024 9:25:28 PM EST Finalized by: CLEVELAND FERNANDO on Jessica Mar 23, 2024 9:25:28 PM EST Normal [facility] Comment on above: Order Comment: Injur y/Trauma or Illness?:Illness/Other How long have you had these symptoms (acute/chronic)?:Acute Reason for exam?:chest pain History of cancer?:. Surgeries, chemotherapy, or radiation?:. Type of Exam?:Initial Additional signs and symptoms?:. BASIC METABOLIC PANEL 12-2 Anion gap [Moles/Vol] 15 mmol/L [facility] Calcium [Mass/Vol] 9.2 mg/dL 8.4 - 10. 2 mg/dL [facility] Chloride [Moles/Vol] 106 mmol/L 98 - 10 7 mmol/L [facility] CO2 [Moles/Vol] 21 mmol/L Low 22 - 29 mmol/L [facility] Creatinine [Mass/Vol] 0.92 mg/dL 0.72 - 1.25 mg/dL [facility] GFR/1.73 sq M.predicted MDRD (S/P/Bld) [Vol rate/Area] 104 mL/min/{1.73_m2} mL/min/1.73sqM [facility] GFR/1.73 sq M.predicted MDRD (S/P/Bld) [Vol rate/Area] 85 mL/min/{1.73_m2} mL/min/1.73sqM [facility] Glucose [Mass/Vol] 132 mg/dL High 70 - 105 mg/dL [facility] Osmolality Calc [Osmolality] 292 mOsm/kg [facility] Potassium [Moles/Vol] 3.8 mmol/L 3.5 - 5.1 mmol/L [facility] Sodium [Moles/Vol] 138 mmol/L 136 - 145 mmol/L [facility] Urea nitrogen [Mass/Vol] 16 mg/dL 8 - 26 mg/dL [facility] Urea nitrogen/Creatinine [Mass ratio] 17 mg/mg [facility] Anion gap [Moles/Vol] 15 mmol/L Normal [facility] Comment on above: Performed By: #### C KB, MGO, HFP, C7C #### [facility] (DEFAULT) [address] [place] [address] Calcium [Mass/Vol] 9.2 mg/dL Normal 8.4-10.2 [facility] Comment on above: Performed By: #### Landy KB, MGO, HFP, C7C #### [facility] (DEFAULT) [address] [place] [address] Chloride [Moles/Vol] 106 mmol/L Normal 98-107 [facility] Comment on above: Performed By: #### C KB, MGO, HFP, C7C #### [facility] (DEFAULT) [address] [place] [address] CO2 [Moles/Vol] 21 mmol/L Low 22-29 [facility] Comment on above: Performed By: #### aLndy KB, MGO, HFP, C7C #### [facility] (DEFAULT) [address] [place] [address] Creatinine [Mass/Vol] 0.92 mg/dL Normal 0.72-1.25 [facility] Comment on above: Performed By: #### Landy KB, MGO, HFP, C7C #### [facility] (DEFAULT) [address] [place] [address] Estimated GFR, 104 mL/min/1.73sqM Normal [facility] Comment on above: Performed By: #### Landy PROCTOR, MGO, HFP, C7C #### [facility] (DEFAULT) [address] [place] [address] Estimated GFR,Non 85 mL/min/1.73sqM Normal [facility] Comment on above: Performed By: #### Landy KB, MGO, HFP, C7C #### [facility] (DEFAULT) [address] [place] [address] Glucose [Mass/Vol] 132 mg/dL High 70-105 [facility] Comment on above: Performed By: #### Landy KB, MGO, HFP, C7C #### [facility] (DEFAULT) [address] [place] [address] Osmolality [Osmolality] 292 mosm/kg Normal [facility] Comment on above: Performed By: #### C KB, MGO, HFP, C7C #### [facility] (DEFAULT) [address] [place] [address] Potassium [Moles/Vol] 3.8 mmol/L Normal 3.5-5.1 [facility] Comment on above: Performed By: #### C KB, MGO, HFP, C7C #### [facility] (DEFAULT) [address] [facility] [place] [address] Sodium [Moles/Vol] 138 mmol/L Normal 136-145 [facility] Comment on above: Performed By: #### Landy KB, MGO, HFP, C7C #### [facility] (DEFAULT) [address] [place] [address] Urea nitrogen [Mass/Vol] 16 mg/dL Normal 8-26 [facility] Comment on above: Performed By: #### C KB, MGO, HFP, C7C #### [facility] (DEFAULT) [address] [place] [address] Urea nitrogen/Creatinine [Mass ratio] 17 mg/mg Normal [facility] Comment on above: Performed By: #### Landy KB, MGO, HFP, C7C #### [facility] (DEFAULT) [address] [place] [address] CBC AND ELECTRONIC DIFFon Basophils (Bld) [#/Vol] 0.00 10*3/uL 0.00 - 0.20 K/uL [facility] Basophils/100 WBC (Bld) 0.6 % [facility] Eosinophils (Bld) [#/Vol] 0.10 10*3/uL 0.00 - 0.20 K/uL [facility] Eosinophils/100 WBC (Bld) 2.4 % [facility] Erythrocyte distribution width (RBC) [Ratio] 14.2 % 11.5 - 14.5 % [facility] Hematocrit (Bld) [Volume fraction] 42.7 % 39.0 - 50.0 % [facility] Hemoglobin (Bld) [Mass/Vol] 14.4 g/dL 13.1 - 17.2 g/dL [facility] Lymphocytes (Bld) [#/Vol] 1.40 10*3/uL 1.00 - 4.80 K/uL [facility] Lymphocytes/100 WBC (Bld) 23.8 % [facility] MCH (RBC) [Entitic mass] 27.9 pg Male: 27.0-35.0, Female: 27.0-34.0 [facility] MCHC (RBC) [Mass/Vol] 33.6 g/dL 32.0 - 36.0 g/dL [facility] MCV (RBC) [Entitic vol] 82.9 fL 80.0 - 99.0 fL [facility] Monocytes (Bld) [#/Vol] 0.60 10*3/uL 0.20 - 0.90 K/uL [facility] Monocytes/100 WBC (Bld) 10.2 % [facility] Neutrophils (Bld) [#/Vol] 3.80 10*3/uL 1.80 - 7.70 K/uL [facility] Platelet mean volume (Bld) [Entitic vol] 7.6 fL 7.5 - 11.2 fL [facility] th Platelets (Bld) [#/Vol] 202 10*3/uL 150 - 400 K/uL [facility] RBC (Bld) [#/Vol] 5.15 10*6/uL Male: 4.2- 5.6, Female: 3.8-5.3 M/uL [facility] Segmented neutrophils/100 WBC (Bld) 63.0 % [facility] WBC (Bld) [#/Vol] 6.0 10*3/uL 4.5 - 11.0 K/uL [facility] Basophils (Bld) [#/Vol] 0.00 10*3/uL Normal 0.00-0.20 [facility] Comment on above: Performed By: #### L [id number] #### [facility] (DEFAULT) [address] [place] [address] Basophils/100 WBC (Bld) 0.6 % Normal [facility] Comment on above: Performed By: #### L [id number] #### [facility] (DEFAULT) [address] [place] [address] Eosinophils (Bld) [#/Vol] 0.10 10*3/uL Normal 0.00-0.20 [facility] Comment on above: Performed By: #### L [id number] #### [facility] (DEFAULT) [address] [place] [address] Eosinophils/100 WBC (Bld) 2.4 % Normal [facility] Comment on above: Performed By: #### L [id number] #### [facility] (DEFAULT) [address] [place] [address] Hematocrit (Bld) [Volume fraction] 42.7 % Normal 39.0-50.0 [facility] Comment on above: Performed By: #### L [id number] #### [facility] (DEFAULT) [address] [place] [address] Hemoglobin (Bld) [Mass/Vol] 14.4 g/dL Normal 13.1-17.2 [facility] Comment on above: Performed By: #### L [id number] #### [facility] (DEFAULT) [address] [place] [address] Lymphocytes (Bld) [#/Vol] 1.40 10*3/uL Normal 1.00-4.80 [facility] Comment on above: Performed By: #### L [id number] #### [facility] (DEFAULT) [address] [place] [address] Lymphocytes/100 WBC (Bld) 23.8 % Normal [facility] Comment on above: Performed By: #### L [id number] #### [facility] (DEFAULT) [address] [place] [address] MCV (RBC) [Entitic vol] 82.9 fL Normal 80.0-99.0 [facility] Comment on above: Performed By: #### L [id number] #### [facility] (DEFAULT) [address] [place] [address] Mean Cell Hgb 27.9 pg Normal Male: 27.0-35.0, Female: 27.0-34.0 [facility] Comment on above: Performed By: #### L [id number] #### [facility] (DEFAULT) [address] [place] [address] Mean Cell Hgb Conc 33.6 g/dL Normal 32.0-36.0 [facility] Comment on above: Performed By: #### L [id number] #### [facility] (DEFAULT) [address] [place] [address] Monocytes (Bld) [#/Vol] 0.60 10*3/uL Normal 0.20-0.90 [facility] Comment on above: Performed By: #### L [id number] #### [facility] (DEFAULT) [address] [place] [address] Monocytes/100 WBC (Bld) 10.2 % Normal [facility] Comment on above: Performed By: #### L [id number] #### [facility] (DEFAULT) [address] [place] [address] Platelet mean volume (Bld) [Entitic vol] 7.6 fL Normal 7.5-11.2 [facility] Comment on above: Performed By: #### L [id number] #### [facility] (DEFAULT) [address] [place] [address] Platelets (Bld) [#/Vol] 202 10*3/uL Normal 150-400 [facility] Comment on above: Performed By: #### L [id number] #### [facility] (DEFAULT) [address] [place] [facility] [place] [address] RBC (Bld) [#/Vol] 5.15 10*6/uL Normal Male: 4.2- 5.6, Female: 3.8-5.3 [facility] Comment on above: Performed By: #### L [id number] #### [facility] (DEFAULT) [address] [place] [address] RBC Distribution 14.2 % Normal 11.5-14.5 [facility] Comment on above: Performed By: #### L [id number] #### [facility] (DEFAULT) [address] [place] [address] Segs + Bands Auto 63.0 % Normal [facility] Comment on above: Performed By: #### L [id number] #### [facility] (DEFAULT) [address] [place] [address] Segs + Bands,Absolute Auto 3.80 K/uL Normal 1.80-7.70 [facility] Comment on above: Performed By: #### L [id number] #### [facility] (DEFAULT) [address] [place] [address] WBC (Bld) [#/Vol] 6.0 10*3/uL Normal 4.5-11.0 [facility] Comment on above: Performed By: #### L [id number] #### [facility] (DEFAULT) [address] [place] [address] CKon 03-18-2024 CK [Catalytic activity/Vol] 314 U/L High 30 - 200 U/L [facility] CK [Catalytic activity/Vol] 314 U/L High 30-200 [facility] Comment on above: Performed By: #### C KB, MGO, HFP, C7C #### [facility] (DEFAULT) [address] [place] [address] D-DIMER,QUANTITATIVEon 03-18 Fibrin D-dimer FEU (PPP) [Mass/Vol] 0.38 [facility] Interpretation and review of laboratory results Normal [facility] D-Dimer, High Sensitivity 0.38 mcg/mL FEU Normal <0.50 [facility] Comment on above: Performed By: #### H SDDI #### [facility] (DEFAULT) [address] [place] [address] HEPATIC FUNCTION PANELon Albumin [Mass/Vol] 3.7 g/dL 3.5 - 5.2 g/dL [facility] ALP [Catalytic activity/Vol] 77 U/L 40 - 150 U/L [facility] ALT [Catalytic activity/Vol] 48 U/L 0 - 55 U/L [facility] AST [Catalytic activity/Vol] 44 U/L High NINF - 39 U/L [facility] Bilirubin [Mass/Vol] 0.3 mg/dL 0.3 - 1 .2 mg/dL [facility] Bilirubin.direct [Mass/Vol] 0.2 mg/dL 0.0 - 0.5 mg/dL [facility] Protein [Mass/Vol] 7.0 g/dL 6.4 - 8.3 g/dL [facility] Albumin [Mass/Vol] 3.7 g/dL Normal 3.5-5.2 [facility] Comment on above: Performed By: #### C KB, MGO, HFP, C7C #### [facility] (DEFAULT) [address] [place] [address] ALP [Catalytic activity/Vol] 77 U/L Normal 40-150 [facility] Comment on above: Performed By: #### C KB, MGO, HFP, C7C #### [facility] (DEFAULT) [address] [place] [address] ALT [Catalytic activity/Vol] 48 U/L Normal 0-55 [facility] Comment on above: Performed By: #### C KB, MGO, HFP, C7C #### [facility] (DEFAULT) [address] [place] [address] AST [Catalytic activity/Vol] 44 U/L High <39 [facility] Comment on above: Performed By: #### C KB, MGO, HFP, C7C #### [facility] (DEFAULT) [address] [place] [facility] [place] [address] Bilirubin [Mass/Vol] 0.3 mg/dL Normal 0.3-1.2 [facility] Comment on above: Performed By: #### C KB, MGO, HFP, C7C #### [facility] (DEFAULT) [address] [place] [address] Bilirubin.indirect [Mass/Vol] 0.2 mg/dL Normal 0.0-0.5 [facility] Comment on above: Performed By: #### C KB, MGO, HFP, C7C #### [facility] (DEFAULT) [address] [place] [address] Protein [Mass/Vol] 7.0 g/dL Normal 6.4-8.3 [facility] Comment on above: Performed By: #### C KB, MGO, HFP, C7C #### [facility] (DEFAULT) [address] [place] [address] LACTATE, BLOODon 03-18-2024 Lactate [Moles/Vol] 1.2 mmol/L 0.5 - 2. 2 mmol/L [facility] Lactate [Moles/Vol] 1.2 mmol/L Normal 0.5-2.2 [facility] Comment on above: Performed By: #### L ACT #### [facility] (DEFAULT) [address] [place] [address] MAGNESIUMon 03-18-2024 Magnesium [Mass/Vol] 1.9 mg/dL 1.6 - 2 .6 mg/dL [facility] Magnesium [Mass/Vol] 1.9 mg/dL Normal 1.6-2.6 [facility] Comment on above: Performed By: #### C KB, MGO, HFP, C7C #### [facility] (DEFAULT) [address] [place] [address] No Panel Informationon 03-18 Interpretation and review of laboratory results Abnormal [facility] Interpretation and review of laboratory results Normal [facility] Portable XR Chest Viewson IMPRESSION: No acute abnormality. OLOGY EXAMINATION TYPE: H XR CHEST 1 VIEW PORTABLE DATE OF EXAM : 03/18/2024 10:02 AM HISTORY: Chest pain COMPARISON: None FINDINGS: Median sternotomy. Normal heart size. Normal mediastinal silhouette. No acute infiltrate. No pleural effusion. No pneumothorax. Small granuloma in the right midlung. RADIOLOGY Vernon Hendricks MD - 03/18/2024 EXAMINATION TYPE: [facility] XR CHEST 1 VIEW PORTABLE DATE OF EXAM : 03/18/2024 10:02 AM HISTORY: Chest pain COMPARISON: None FINDINGS: Median sternotomy. Normal heart size. Normal mediastinal silhouette. No acute infiltrate. No pleural effusion. No pneumothorax. Small granuloma in the right midlung. IMPRESSION IMPRESSION: No acute abnormality. [place] [facility] Phone: Radiology Study observation (narrative) [facility] Phone: Portable XR Chest ViewsOrder ed By: Vernon Hendricks on 03-18-2024 [facility] TROPONINOrdered By: Jennifer Hung on 03-18-2024 Interpretation and review of laboratory results Normal [facility] Troponin I.cardiac DL <= 0.01 ng/mL [Mass/Vol] 0.010 ng/mL [facility] - 0.033 ng/mL [facility] Comment on above: 0.034-0.110 INDETERM INATE >0.120 DIAGNOSTIC [facility] TROPONINon 03-18-2024 Troponin I.cardiac [Mass/Vol] 0.010 ng/mL Normal <0.033 [facility] Comment on above: Result Comment: 0.03 4-0.110 INDETERMINATE >0.120 DIAGNOSTIC Performed By: #### T ROP #### [facility] (DEFAULT) [address] [place] [address] Interpretation and review of laboratory results Normal [facility] Troponin I.cardiac DL <= 0.01 ng/mL [Mass/Vol] 0.027 ng/mL [facility] - 0.033 ng/mL [facility] Comment on above: 0.034-0.110 INDETERM INATE >0.120 DIAGNOSTIC [facility] Troponin I.cardiac [Mass/Vol] 0.027 ng/mL Normal <0.033 [facility] Comment on above: Result Comment: 0.03 4-0.110 INDETERMINATE >0.120 DIAGNOSTIC Performed By: #### T ROP #### [facility] (DEFAULT) [address] [place] [id number] XR CHEST 1 VIEW PORTABLEon 1 05-19-2023 XR CHEST 1 VIEW PORTABLE EXAMINATION TYPE: [facility] XR CHEST 1 VIEW PORTABLE DATE OF EXAM : 03/18/2024 10:02 AM HISTORY: Chest pain COMPARISON: None FINDINGS: Median sternotomy. Normal heart size. Normal mediastinal silhouette. No acute infiltrate. No pleural effusion. No pneumothorax. Small granuloma in the right midlung. IMPRESSION: No acute abnormality. Normal [facility] Vital Signs Date Time Vital Sign Value Performing Clinician Faci lity 03-18-2024 13:00-0500 Body temperature 97.59 [degF] Hernesto Shaffer III, DO Work Phone: [place] [facility] 03-18-2024 13:00-0500 Diastolic blood pressure 68 mm[Hg] Hernesto Shaffer III, DO Work Phone: [place] [facility] 03-18-2024 13:00-0500 Heart rate 72 /min Hernesto Shaffer III, DO Work Phone: [facility] 03-18-2024 13:00-0500 Respiratory rate 21 /min Hernesto Shaffer III, DO Work Phone: [facility] 03-18-2024 13:00-0500 Systolic blood pressure 109 mm[Hg] Hernesto Shaffer III, DO Work Phone: [facility] 03-18-2024 10:18-0500 SaO2% (BldA) [Mass fraction] 95 % Hernesto Shaffer III, DO Work Phone: [facility] 03-18-2024 09:23-0500 Body height 177.8 cm Hernesto Shaffer III, DO Work Phone: [facility] 03-18-2024 09:23-0500 Body mass index (BMI) [Ratio] 35.15 kg/m2 Hernesto Shaffer III, DO Work Phone: [facility] 03-18-2024 09:23-0500 Body weight 111.13 kg Hernesto Shaffer III, DO Work Phone: [facility] Encounters Encounter Date Encounter Type Care Provider Facility Start: 03-23-2024 End: 03-24-2024 ambulatory [facility] Start: 03-18-2024 End: 03-18-2024 Emergency department patient visit Hernesto Shaffer DO Work Phone: [facility] Emergency Department Procedures Date Procedure Procedure Detail Performing Clinician Start: 03-18-2024 Assay of troponin quantitative Hernesto Shaffer DO Work Phone: Start: 03-18-2024 Radiologic exam ches t single view Hernesto Shaffer DO Work Phone: Start: 03-18-2024 CBC AND ELECTRONIC DIFF Hernesto Shaffer DO Work Phone: Start: 03-18-2024 Complete blood count with white cell differential, automated Hernesto Shaffer DO Work Phone: Start: 03-18-2024 Comprehensive metabo lic panel Hernesto Shaffer DO Work Phone: Plan of Treatment Date Care Activity Detail Author Start: 03-18-2025 Potassium [Moles/vol ume] in Serum or Plasma POTASSIUM [facility] Start: 11-28-2023 COVID-19 VACCINE ( season) COVID-19 VACCINE ( season) [facility] Start: 11-28-2023 Influenza vaccination INFLUENZA VACC INE (#1) [facility] Start: 10-04-2023 Prostate specific an tigen measurement PROSTATE CANCER SCREENING DISCUSSION [facility] Start: 11-06-2018 Tetanus vaccination TETANUS [facility] Start: 2018 Zoster vaccine hzv l kameron for subcutaneous use ZOSTER (SHINGLES) VACCINE (1 of 2) [facility] Start: 2013 Screening for malign ant neoplasm of colon COLORECTAL CANCER SCREENING DISCUSSION [facility] Start: 2008 Lipid panel LIPID SCREENING [facility] Start: 10-04-1987 Hepatitis B vaccination HEP B VACCINE (1 of 3 - 19+ 3-dose series) [facility] Start: 10-04-1983 HIV screening HIV SCREENING DISCUSSION [facility] Start: 1970 Hepatitis C screening HEPATITI S C VIRUS SCREENING [facility] End: 03-18-2024 Standard ECG ECG ECG STAT One Time for 1 Occurrences starting 03/18/2024 until 03/18/2024 [facility] Work Phone: Comment on above: One Time for 1 Occur rences starting 03/18/2024 until 03/18/2024 Immunizations Immunization Date Immunization Notes Care Provider Helena lazo 12-29-2006 influenza virus vaccine, unspecified formulation Hernesto Shaffer III, DO Work Phone: [facility] Phone: Payers Date Payer Category Payer Medicaid MEDICAID MEDICAI D OUT OF STATE [id number] 2024-Present [phone] [address] [place] [address] [id number] 2024 Medicaid [id number] 1970 Unknown [id number] 1970 Unknown [id number] Social History Date Type Detail Facility Tobacco smoking stat [facility] Tobacco smoking consumption unknown [facility] Phone: Start: 1970 Sex assigned at Not on file [facility] Phone: Gender identity Not on file [facility] Work Phone: Hospital Discharge instructions 03-18-2024 Discharge InstructionsAttachments Note Date & Type Note Facility 03-18-2024 Hospital Discharg e instructions Hernesto Shaffer III, DO - 03/18/2024 2:31 PM EST Follow-up with PCP and Cardiology when you return home Return the ED for change or concern: Pain, fever, shortness of breath Continue home medications as prescribed Stop smoking Tylenol as directed if needed for pain The following attachments cannot be sent through Care Everywhere.Chest Pain (Azeri)documented in this encounter [facility] Phone: Emergency department Note 03-18-2024 Agata Patel RN - 03/18/2024 1:25 PM EST Note Date & Type Note Facility 03-18-2024 Emergency departm ent Note This RN visualized patient applying his own personal nicotine patch, (Nicoderm CQ) 21mg/24hr patch, one patch applied to pt's upper right arm [facility] Emergency department Note 03-18-2024 Agata Patel RN - 03/18/2024 1:25 PM ESTHernesto Georges Edmund FLEMING, DO - 03/18/2024 9:35 AM EST Note Date & Type Note Facility 03-18-2024 Emergency department Note This RN visualized patient applying his own personal nicotine patch, (Nicoderm CQ) 21mg/24hr patch, one patch applied to pt's upper right arm History Chief Complaint Patient presents with Chest Pain Pt states he's been having chest pain x2 weeks. Pt states he was in the hospital last week in [place] for his asthma. Pt states today is different because he's tired of his chest hurting. HPI 53-year-old white male presents emergency department via vehicle complaining of left-sided chest pain. He says he woke up this morning in his left arm was numb had pain left chest. 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 He has a history of hypertension and continues smoke. He was traveling came from truck. . He says that has been hospitalized 16 or 17 times secondary to chest pain. He says most recently he was hospitalized chart for similar pains a problem with his asthma. He describes a sharp pain in the left chest that makes his left arm numb. He is not short of breath. He has not been nauseous. Is a good historian and pleasant cooperative throughout exam. He continues to have the pain, but he is in distress No past medical history on file. No past surgical history on file. No family history on file. Review of Systems Available nursing notes reviewed. I agree, except as otherwise noted. Constitutional: Negative for fever and chills. HENT: Negative for congestion. Eyes: Negative for discharge. Respiratory: Negative for shortness of breath. Cardiovascular: Positive for chest pain Gastrointestinal: Negative for nausea, vomiting, abdominal pain and diarrhea. Endocrine: Negative for cold intolerance. Genitourinary: Negative for dysuria and frequency. Musculoskeletal: Negative for myalgias and arthralgias. Skin: Negative for rash. Neurological: Negative for dizziness, weakness and headaches. Psychiatric/Behavioral: The patient is not nervous/anxious. All other systems reviewed and are negative. Physical Exam BP 144/85 Pulse 75 Temp 97.3 F (36.3 C) Resp 18 Ht 1.778 m (5' 10) Wt 111.1 kg (245 lb) SpO2 100% BMI 35.15 kg/m Physical Exam Nursing notes have been reviewed Constitutional: Patient is overweight, in no apparent distress HENT: Head: Normocephalic and atraumatic. Right Ear: External ear normal. Tympanic membrane is not red or bulging Left Ear: External ear normal. Tympanic membrane is not red or bulging Nose: Nose normal. Mouth/Throat: Oropharynx is clear and mucous membranes look well hydrated Eyes: Conjunctivae and extraocular motions are normal. Right eye exhibits no discharge. Left eye exhibits no discharge. No scleral icterus. Neck: Normal range of motion. Neck supple. Trachea is midline. No meningeal signs. No anterior chain lymphadenopathy Cardiovascular: Regular rhythm, normal heart sounds and intact distal pulses. Exam reveals no gallop and no friction rub. No murmur heard. Pulmonary/Chest: Effort normal. No stridor. No respiratory distress. Breath sounds: no wheezes. no rhonchi. no rales. Palpation of the chest wall does not reproduce his symptoms. No crepitus or subcutaneous air Abdominal: Soft. Bowel sounds are normal. No distension. No tenderness. No rebound and no guarding. No mass or organomegaly. No pulsatile mass. No CVA tenderness Musculoskeletal: Good muscle strength and normal range of motion in all 4 extremities with no signs of injury. No significant peripheral edema Neurological: Patient is alert and oriented to person, place, and time. Patient has normal strength. Coordination normal. Skin: Skin is warm and dry. No rash noted. Psychiatric: Patient has a calm mood and affect. Speech, behavior, and thought content normal. TESTS LABS: IHernesto DO, have independently reviewed the following labs: Results for orders placed or performed during the hospital encounter of 03/18/24 BASIC METABOLIC PANEL Result Value Ref Range Sodium 138 136 - 145 mmol/L Potassium 3.8 3.5 - 5.1 mmol/L Chloride 106 98 - 107 mmol/L Carbon Dioxide 21 (L) 22 - 29 mmol/L BUN 16 8 - 26 mg/dL Creatinine 0.92 0.72 - 1.25 mg/dL Glucose 132 (H) 70 - 105 mg/dL Calcium 9.2 8.4 - 10.2 mg/dL Anion Gap 15 mmol/L BUN/CREA Ratio 17 Osmolality (Calc) 292 mOsm/kg Estimated GFR, 104 mL/min/1.73sqM Estimated GFR,Non 85 mL/min/1.73sqM HEPATIC FUNCTION PANEL Result Value Ref Range Albumin 3.7 3.5 - 5.2 g/dL Bilirubin Direct 0.2 0.0 - 0.5 mg/dL Bilirubin, Total 0.3 0.3 - 1.2 mg/dL Alkaline Phosphatase 77 40 - 150 U/L ALT (SGPT) 48 0 - 55 U/L Total Protein 7.0 6.4 - 8.3 g/dL AST 44 (H) <39 U/L TROPONIN Result Value Ref Range Troponin I 0.027 <0.033 ng/mL MAGNESIUM Result Value Ref Range Magnesium 1.9 1.6 - 2.6 mg/dL CK Result Value Ref Range Creatine Kinase 314 (H) 30 - 200 U/L LACTATE, BLOOD Result Value Ref Range Lactic Acid 1.2 0.5 - 2.2 mmol/L D-DIMER,QUANTITATIVE Result Value Ref Range D-Dimer, High Sensitivity 0.38 <0.50 mcg/mL FEU CBC AND ELECTRONIC DIFF Result Value Ref Range WBC Count 6.0 4.5 - 11.0 K/uL RBC Count 5.15 Male: 4.2-5.6, Female: 3.8-5.3 M/uL Hemoglobin 14.4 13.1 - 17.2 g/dL Hematocrit 42.7 39.0 - 50.0 % Mean Cell Volume 82.9 80.0 - 99.0 fL Mean Cell Hgb 27.9 Male: 27.0-35.0, Female: 27.0-34.0 pg Mean Cell Hgb Conc 33.6 32.0 - 36.0 g/dL RBC Distribution 14.2 11.5 - 14.5 % Platelet Count 202 150 - 400 K/uL Mean Platelet Volume 7.6 7.5 - 11.2 fL Segs + Bands,Absolute Auto 3.80 1.80 - 7.70 K/uL Lymphocyte % Auto 23.8 % Monocyte % Auto 10.2 % Eosinophil % Auto 2.4 % Basophil % Auto 0.6 % Segs + Bands Auto 63.0 % Abs Lymph Auto 1.40 1.00 - 4.80 K/uL Abs Castro Auto 0.60 0.20 - 0.90 K/uL Abs Eos Auto 0.10 0.00 - 0.20 K/uL Abs Baso Auto 0.00 0.00 - 0.20 K/uL TROPONIN Result Value Ref Range Troponin I 0.010 <0.033 ng/mL XRAYS: XR CHEST 1 VIEW PORTABLE Result Date: 03/18/2024 EXAMINATION TYPE: [facility] XR CHEST 1 VIEW PORTABLE DATE OF EXAM : 03/18/2024 10:02 AM HISTORY: Chest pain COMPARISON: None FINDINGS: Median sternotomy. Normal heart size. Normal mediastinal silhouette. No acute infiltrate. No pleural effusion. No pneumothorax. Small granuloma in the right midlung. IMPRESSION: No acute abnormality. CHEST PA AND LATERAL 2 VIEWS Result Date: 03/14/2024 Examination: Chest radiographs, 2 views. Clinical Indication: chest pain Comparison: None Findings: Support tubes and lines: EKG leads. Heart, mediastinum, and pulmonary vasculature: The cardiomediastinal silhouette is within normal limits for size and contour. 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 No pulmonary vascular congestion. Lungs and pleura: No pulmonary consolidation or edema. No pleural effusion. No pneumothorax. Bones: No acute abnormality. Postsurgical changes from prior median sternotomy. Degenerative changes of the spine. No acute cardiopulmonary abnormality. CV NM Stress MPI Pharmacological (East Only) Result Date: 03/12/2024 MYOCARDIAL PERFUSION SCAN CLINICAL HISTORY: Chest pain. COMPARISON: None available TECHNIQUE: Stress and rest SPECT images were obtained. 11.0 mCi of Tc99m Myoview was utilized at rest; 33.0 mCi of Tc99m Myoview was utilized for stress imaging.The images were reviewed on [employer] Portal. Lexiscan was utilized for the stress [...] Result Date: 03/12/2024 Version: 1 Study ID: [id number] [facility] Non Invasive Cardiology [address] [place] [address] Adult Echocardiogram Report Name: CATHERINE GARNETT Study Date: 03/11/2024, 10:23 AM Performed By: Bela Odell : 1970 (MM/DD/YYYY) Age: 53 Years Reason For Study: chest pain, chest pain Gender: Male Patient Location: [address] Ordering Physician: LYNN DECKER: [id number] Electronically signed by: Ruben Matos 03/12/2024, 12:06 [...] stdy to follow. Confirmed by Celine Riggins ([id number]) on 03/12/2024 11:11:35 AM XR CHEST Result Date: 03/11/2024 CHEST SINGLE VIEW: CLINICAL HISTORY: Chest pain TECHNIQUE: Single frontal view of the chest was obtained. COMPARISON: None FINDINGS: CABG changes. No cardiomegaly or congestion. No focal consolidation to suggest pneumonia. Calcified granuloma right midlung. No sizable pleural effusion or pneumothorax. No acute cardiopulmonary process XR CHEST 1 VIEW PORTABLE Result Date: 02/22/2024 EXAM: XR CHEST AP OR PA HISTORY: Chest Pain COMPARISON: Chest radiograph 02/17/2023 TECHNIQUE: Single, AP upright view of the chest. FINDINGS: Postoperative changes of myocardial revascularization. Cardiomediastinal contours are normal. Pulmonary vasculature is distributed normally. No consolidation. No pleural effusion or pneumothorax. IMPRESSION: No acute cardiopulmonary findings. Stable postoperative changes. I, Attending Radiologist Ksenia Owens MD, have reviewed the images and report and concur with these findings interpreted by Resident Radiologist, Haja Saleh DO. Electronically Signed by: Ksenia Owens MD Signed on: 02/22/2024 12:25 PM Created on Workstation ID: [id number] Signed on Workstation ID: [id number] EKG and MONITOR STRIP: was interpreted contemporaneously by me, Hernesto Shaffer DO Rhythm: Normal sinus rhythm Rate : 76 Towner: Normal Ectopy: PAC Impression: No acute ST elevation or depression appreciated Heart score: 4 Diagnosis: 1. Chest pain 2. History of coronary artery disease New Prescriptions No medications on file Discussed diagnosis and further treatment plans with patient. Questions addressed. Admission risks versus home treatment options and risks were discussed. Disposition agreed upon. Specific discharge instructions, Physician follow up with recommendations on timing of that follow up, and reasons to return to the emergency department explained. DDX I estimate there is LOW risk for PULMONARY EMBOLISM, ACUTE CORONARY SYNDROME, THORACIC AORTIC DISSECTION, PNEUMOTHORAX, PNEUMONIA, HEMOTHORAX, PERICARDIAL TAMPONADE, or CARDIAC CONTUSION, thus I consider the discharge disposition reasonable. The patient and/or family and I have discussed the diagnosis and risks, and we agree with discharging home to follow-up with their primary doctor, returning for any worsening or new symptoms develop. Pre-hypertension/Hypertension screening: The patient's blood pressure was Blood pressure 144/85, pulse 75, temperature 97.3 F (36.3 C), resp. rate 18, height 1.778 m (5' 10), weight 111.1 kg (245 lb), SpO2 100%.. I have informed them that they may have pre-hypertension or Hypertension based on a blood pressure reading in the emergency department. I recommended that the patient call their primary care provider listed on their discharge instructions or a physician of their choice this week to arrange follow up for further evaluation of possible pre-hypertension or Hypertension. Please note that some of this chart was generated using [employer] voice recognition software. Although every effort was made to ensure the accuracy of this automated devil dog, some errors in devil dog may have occurred. ED Course The patient remained stable during his Emergency Department stay. He continued to improve throughout. Feels comfortable with discharge or for having to negative troponins. He is not sure when will return home, but is agreeable to return to an emergency department if he continues to have discomfort and will follow-up with his PCP cardiology when he returns home. Procedures Medical Decision Making Amount and/or Complexity of Data Reviewed Labs: ordered. Radiology: ordered. Risk OTC drugs. Prescription drug management. Hernesto Harpertricia FLEMING, DO 03/18/24 [id number] documented in this encounter [facility] Phone: Physician Emergency department Note 03-18-2024 Hernesto Shaffer LONNIE DO - 03/18/2024 9:35 AM EST Note Date & Type Note Facility 03-18-2024 Physician Emergency department Note History Chief Complaint Patient presents with Chest Pain Pt states he's been having chest pain x2 weeks. Pt states he was in the hospital last week in [place] for his asthma. Pt states today is different because he's tired of his chest hurting. HPI 53-year-old white male presents emergency department via vehicle complaining of left-sided chest pain. He says he woke up this morning in his left arm was numb had pain left chest. 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 He has a history of hypertension and continues smoke. He was traveling came from truck. . He says that has been hospitalized 16 or 17 times secondary to chest pain. He says most recently he was hospitalized chart for similar pains a problem with his asthma. He describes a sharp pain in the left chest that makes his left arm numb. He is not short of breath. He has not been nauseous. Is a good historian and pleasant cooperative throughout exam. He continues to have the pain, but he is in distress No past medical history on file. No past surgical history on file. No family history on file. Review of Systems Available nursing notes reviewed. I agree, except as otherwise noted. Constitutional: Negative for fever and chills. HENT: Negative for congestion. Eyes: Negative for discharge. Respiratory: Negative for shortness of breath. Cardiovascular: Positive for chest pain Gastrointestinal: Negative for nausea, vomiting, abdominal pain and diarrhea. Endocrine: Negative for cold intolerance. Genitourinary: Negative for dysuria and frequency. Musculoskeletal: Negative for myalgias and arthralgias. Skin: Negative for rash. Neurological: Negative for dizziness, weakness and headaches. Psychiatric/Behavioral: The patient is not nervous/anxious. All other systems reviewed and are negative. Physical Exam BP 144/85 Pulse 75 Temp 97.3 F (36.3 C) Resp 18 Ht 1.778 m (5' 10) Wt 111.1 kg (245 lb) SpO2 100% BMI 35.15 kg/m Physical Exam Nursing notes have been reviewed Constitutional: Patient is overweight, in no apparent distress HENT: Head: Normocephalic and atraumatic. Right Ear: External ear normal. Tympanic membrane is not red or bulging Left Ear: External ear normal. Tympanic membrane is not red or bulging Nose: Nose normal. Mouth/Throat: Oropharynx is clear and mucous membranes look well hydrated Eyes: Conjunctivae and extraocular motions are normal. Right eye exhibits no discharge. Left eye exhibits no discharge. No scleral icterus. Neck: Normal range of motion. Neck supple. Trachea is midline. No meningeal signs. No anterior chain lymphadenopathy Cardiovascular: Regular rhythm, normal heart sounds and intact distal pulses. Exam reveals no gallop and no friction rub. No murmur heard. Pulmonary/Chest: Effort normal. No stridor. No respiratory distress. Breath sounds: no wheezes. no rhonchi. no rales. Palpation of the chest wall does not reproduce his symptoms. No crepitus or subcutaneous air Abdominal: Soft. Bowel sounds are normal. No distension. No tenderness. No rebound and no guarding. No mass or organomegaly. No pulsatile mass. No CVA tenderness Musculoskeletal: Good muscle strength and normal range of motion in all 4 extremities with no signs of injury. No significant peripheral edema Neurological: Patient is alert and oriented to person, place, and time. Patient has normal strength. Coordination normal. Skin: Skin is warm and dry. No rash noted. Psychiatric: Patient has a calm mood and affect. Speech, behavior, and thought content normal. TESTS LABS: Hernesto Frances DO, have independently reviewed the following labs: Results for orders placed or performed during the hospital encounter of 03/18/24 BASIC METABOLIC PANEL Result Value Ref Range Sodium 138 136 - 145 mmol/L Potassium 3.8 3.5 - 5.1 mmol/L Chloride 106 98 - 107 mmol/L Carbon Dioxide 21 (L) 22 - 29 mmol/L BUN 16 8 - 26 mg/dL Creatinine 0.92 0.72 - 1.25 mg/dL Glucose 132 (H) 70 - 105 mg/dL Calcium 9.2 8.4 - 10.2 mg/dL Anion Gap 15 mmol/L BUN/CREA Ratio 17 Osmolality (Calc) 292 mOsm/kg Estimated GFR, 104 mL/min/1.73sqM Estimated GFR,Non 85 mL/min/1.73sqM HEPATIC FUNCTION PANEL Result Value Ref Range Albumin 3.7 3.5 - 5.2 g/dL Bilirubin Direct 0.2 0.0 - 0.5 mg/dL Bilirubin, Total 0.3 0.3 - 1.2 mg/dL Alkaline Phosphatase 77 40 - 150 U/L ALT (SGPT) 48 0 - 55 U/L Total Protein 7.0 6.4 - 8.3 g/dL AST 44 (H) <39 U/L TROPONIN Result Value Ref Range Troponin I 0.027 <0.033 ng/mL MAGNESIUM Result Value Ref Range Magnesium 1.9 1.6 - 2.6 mg/dL CK Result Value Ref Range Creatine Kinase 314 (H) 30 - 200 U/L LACTATE, BLOOD Result Value Ref Range Lactic Acid 1.2 0.5 - 2.2 mmol/L D-DIMER,QUANTITATIVE Result Value Ref Range D-Dimer, High Sensitivity 0.38 <0.50 mcg/mL FEU CBC AND ELECTRONIC DIFF Result Value Ref Range WBC Count 6.0 4.5 - 11.0 K/uL RBC Count 5.15 Male: 4.2-5.6, Female: 3.8-5.3 M/uL Hemoglobin 14.4 13.1 - 17.2 g/dL Hematocrit 42.7 39.0 - 50.0 % Mean Cell Volume 82.9 80.0 - 99.0 fL Mean Cell Hgb 27.9 Male: 27.0-35.0, Female: 27.0-34.0 pg Mean Cell Hgb Conc 33.6 32.0 - 36.0 g/dL RBC Distribution 14.2 11.5 - 14.5 % Platelet Count 202 150 - 400 K/uL Mean Platelet Volume 7.6 7.5 - 11.2 fL Segs + Bands,Absolute Auto 3.80 1.80 - 7.70 K/uL Lymphocyte % Auto 23.8 % Monocyte % Auto 10.2 % Eosinophil % Auto 2.4 % Basophil % Auto 0.6 % Segs + Bands Auto 63.0 % Abs Lymph Auto 1.40 1.00 - 4.80 K/uL Abs Castro Auto 0.60 0.20 - 0.90 K/uL Abs Eos Auto 0.10 0.00 - 0.20 K/uL Abs Baso Auto 0.00 0.00 - 0.20 K/uL TROPONIN Result Value Ref Range Troponin I 0.010 <0.033 ng/mL XRAYS: XR CHEST 1 VIEW PORTABLE Result Date: 03/18/2024 EXAMINATION TYPE: [facility] XR CHEST 1 VIEW PORTABLE DATE OF EXAM : 03/18/2024 10:02 AM HISTORY: Chest pain COMPARISON: None FINDINGS: Median sternotomy. Normal heart size. Normal mediastinal silhouette. No acute infiltrate. No pleural effusion. No pneumothorax. Small granuloma in the right midlung. IMPRESSION: No acute abnormality. CHEST PA AND LATERAL 2 VIEWS Result Date: 03/14/2024 Examination: Chest radiographs, 2 views. Clinical Indication: chest pain Comparison: None Findings: Support tubes and lines: EKG leads. Heart, mediastinum, and pulmonary vasculature: The cardiomediastinal silhouette is within normal limits for size and contour. 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 No pulmonary vascular congestion. Lungs and pleura: No pulmonary consolidation or edema. No pleural effusion. No pneumothorax. Bones: No acute abnormality. Postsurgical changes from prior median sternotomy. Degenerative changes of the spine. No acute cardiopulmonary abnormality. CV NM Stress MPI Pharmacological (East Only) Result Date: 03/12/2024 MYOCARDIAL PERFUSION SCAN CLINICAL HISTORY: Chest pain. COMPARISON: None available TECHNIQUE: Stress and rest SPECT images were obtained. 11.0 mCi of Tc99m Myoview was utilized at rest; 33.0 mCi of Tc99m Myoview was utilized for stress imaging.The images were reviewed on [employer] Portal. Certonaiscan was utilized for the stress portion of [...] Result Date: 03/12/2024 Version: 1 Study ID: [id number] [facility] Non Invasive Cardiology [address] [place] [address] Adult Echocardiogram Report Name: CATHERINE GARNETT Study Date: 03/11/2024, 10:23 AM Performed By: Bela Odell : 1970 (MM/DD/YYYY) Age: 53 Years Reason For Study: chest pain, chest pain Gender: Male Patient Location: [address] Ordering Physician: LYNN DECKER: [id number] Electronically signed by: Ruben Matos 03/12/2024, 12:06 [...] stdy to follow. Confirmed by Celine Riggins ([id number]) on 03/12/2024 11:11:35 AM XR CHEST Result Date: 03/11/2024 CHEST SINGLE VIEW: CLINICAL HISTORY: Chest pain TECHNIQUE: Single frontal view of the chest was obtained. COMPARISON: None FINDINGS: CABG changes. No cardiomegaly or congestion. No focal consolidation to suggest pneumonia. Calcified granuloma right midlung. No sizable pleural effusion or pneumothorax. No acute cardiopulmonary process XR CHEST 1 VIEW PORTABLE Result Date: 02/22/2024 EXAM: XR CHEST AP OR PA HISTORY: Chest Pain COMPARISON: Chest radiograph 02/17/2023 TECHNIQUE: Single, AP upright view of the chest. FINDINGS: Postoperative changes of myocardial revascularization. Cardiomediastinal contours are normal. Pulmonary vasculature is distributed normally. No consolidation. No pleural effusion or pneumothorax. IMPRESSION: No acute cardiopulmonary findings. Stable postoperative changes. I, Attending Radiologist Ksenia Owens MD, have reviewed the images and report and concur with these findings interpreted by Resident Radiologist, Haja Saleh DO. Electronically Signed by: Ksenia Owens MD Signed on: 02/22/2024 12:25 PM Created on Workstation ID: [id number] Signed on Workstation ID: [id number] EKG and MONITOR STRIP: was interpreted contemporaneously by me, Hernesto Shaffer DO Rhythm: Normal sinus rhythm Rate : 76 Towner: Normal Ectopy: PAC Impression: No acute ST elevation or depression appreciated Heart score: 4 Diagnosis: 1. Chest pain 2. History of coronary artery disease New Prescriptions No medications on file Discussed diagnosis and further treatment plans with patient. Questions addressed. Admission risks versus home treatment options and risks were discussed. Disposition agreed upon. Specific discharge instructions, Physician follow up with recommendations on timing of that follow up, and reasons to return to the emergency department explained. DDX I estimate there is LOW risk for PULMONARY EMBOLISM, ACUTE CORONARY SYNDROME, THORACIC AORTIC DISSECTION, PNEUMOTHORAX, PNEUMONIA, HEMOTHORAX, PERICARDIAL TAMPONADE, or CARDIAC CONTUSION, thus I consider the discharge disposition reasonable. The patient and/or family and I have discussed the diagnosis and risks, and we agree with discharging home to follow-up with their primary doctor, returning for any worsening or new symptoms develop. Pre-hypertension/Hypertension screening: The patient's blood pressure was Blood pressure 144/85, pulse 75, temperature 97.3 F (36.3 C), resp. rate 18, height 1.778 m (5' 10), weight 111.1 kg (245 lb), SpO2 100%.. I have informed them that they may have pre-hypertension or Hypertension based on a blood pressure reading in the emergency department. I recommended that the patient call their primary care provider listed on their discharge instructions or a physician of their choice this week to arrange follow up for further evaluation of possible pre-hypertension or Hypertension. Please note that some of this chart was generated using [employer] voice recognition software. Although every effort was made to ensure the accuracy of this automated devil dog, some errors in devil dog may have occurred. ED Course The patient remained stable during his Emergency Department stay. He continued to improve throughout. Feels comfortable with discharge or for having to negative troponins. He is not sure when will return home, but is agreeable to return to an emergency department if he continues to have discomfort and will follow-up with his PCP cardiology when he returns home. Procedures Medical Decision Making Amount and/or Complexity of Data Reviewed Labs: ordered. Radiology: ordered. Risk OTC drugs. Prescription drug management. Hernesto Harpertricia FLEMINGDO 03/18/24 1434 [facility] Phone: Evaluation note Note Date & Type Note Facility Evaluation note Diagnosis Chest pain, unspecified type- Primary History of coronary artery disease Personal history of other diseases of circulatory system documented in this encounter [facility] Phone: Reason for Referral Specialty Diagnoses / Procedures Referred By Contac t Referred To Contact Procedures ECG Hernesto Shaffer III, DO [address] [place] [address] Referral ID Status Reason Start Date Expiration Date V isits Requested Visits Authorized [id number] New Request 03/18/2024 04/12/2025 1 1 Summary Purpose Family History No Family History Records FoundNo Family History Records Found Advance Directives No Advanced Directives Records FoundNo Advanced Directives Records Found Additional Source Comments Reason for Visit (unrecogniz ed section and content) Reason Comments Chest Pain Pt states he's been having chest pain x2 weeks. Pt states he was in the hospital last week in [place] for his asthma.Pt states today is different because he's tired of his chest hurting. Scheduled Active and Recently Administ ered Medications (unrecognized section and content) Medication Order 03/16/2024 03/17/2024 03/18/2024 aspirin chewable tablet 324 mg (COMPLETED) 324 mg, Oral, ONCE, 1 dose, On 03/18/24 at 0945 1008 (Given - Provid er: Agata Patel RN) HYDROmorphone (DILAUDID) injection 1 mg (COMPLETED) 1 mg, Intravenous, ONCE, 1 dose, On 03/18/24 at 1100 1109 (Given - Provid er: Agata Patel RN) Morphine (PF) injection 4 mg (COMPLETED) 4 mg, Intravenous, ONCE, 1 dose, On 03/18/24 at 1015 1010 (Given - Provid er: Agata Patel RN) Ondansetron 4mg/2ml (ZOFRAN) injection 4 mg (COMPLETED) 4 mg, Intravenous, ONCE, 1 dose, On 12/21/24 at 0945 1009 (Given - Provid er: Agata Patel RN) VERIFY LINKED PATCH PLACEMENT(Linked Group 1) Other, EVERY 12 HOURS, First dose on 03/18/24 at 2100, Until Discontinued, Confirm continued adhesion of nicotine 21 mg/24hr patch at documented site. Linked Groups Order Group 1: Nicotine (NICODERM CQ) 21 MG/24HR patch 1 patch (CANCELED) 1 patch, Transdermal, EVERY 24 HOURS, First dose on 03/18/24 at 1345, Until Discontinued And VERIFY LINKED PATCH PLACEMENTJump to med Other, EVERY 12 HOURS, First dose on 03/18/24 at 2100, Until Discontinued, Confirm continued adhesion of nicotine 21 mg/24hr patch at documented site. (unrecognized sect ion and content) No Status Records FoundNo Status Records Found INFORMATION SOURCE (unrecogn ized section and content) DATE CREATED AUTHOR 03/21/2024 [facility] DATE CREATED AUTHOR 'S ORGANIZ ATION 03/26/2024 [facility] FOR RECORDS PERTAINING TO PATIENTS WHO ARE OR HAVE BEEN ENROLLED IN A CHEMICAL DEPENDENCY/SUBSTANCEABUSE PROGRAM, SOME INFORMATION MAY BE OMITTED. This clinical summary was aggregated from multiple sources. Caution should be exercised in using it in the provision of clinical care. This summary normalizes information from multiple sources, and as a consequence, information in this document may materially change the coding, format and clinical context of patient data. In addition, data may be omitted in some cases. CLINICAL DECISIONS SHOULD BE BASED ON THE PRIMARY CLINICAL RECORDS. [employer] [facility]. provides no warranty or guarantee of the accuracy or completeness of information in this document.
--- OUTSIDE RECORDS SUMMARY | 2024-04-09 16:15 | XMS_ITS ---
Care Plan Created on: March 09, 2023 RUBYCATHERINE : 1970 Sex: Male Author Name Dani BOUDREAUX Isabella CALLES Organization [facility] Care Team Providers Care Professional Fee Coder Name Role Phone Dain BOUDREAUX LCSW, Lydia Unavailable [facility] Health Concerns Section Plan Status: Active Member Care Plan: CATHERINE JIMENEZ HEMANTH Date Last Updated: 03/09/2023 Program Name: [facility] Enrollment Date: 02/26/2019 Disenrollment Date: WICT Indicator: No [place] Interdisciplinary Care Team (WICT) indicates a high-needs patient who receives coordinated care from an interdisciplinary team of health toddler caregiver. Providers should contact the listed Point of Contact of the Care Team to learn more about a patient's WICT. Transient Indicator: No Advance Directive Indicator: Unknown CARE TEAM: First Name: Isabella Last Name: Dain BOUDREAUX LCSW Title: Compressor Assembler Phone (Work): Phone (Organizational): Phone (Fax): Email: [email or web address] Community [facility] Worker: [place] of Responsibility: [place] ADDITIONAL CONTACTS: Role: Organization Name: First Name: Unknown Last Name: Unknown CARE PLAN: Problem: Problem Name: Quality Care Measure s Problem Description: Quality Care Measur es Problem Stages of Change: Problem ICD10 Diagnosis Code: F33.1 Problem Identified Date: 03/09/2023 Problem Reassess Date: Problem Resolved Date: 03/09/2023 Related Goals: Goals: Goal Name: Catherine will attend 1 appointment with a behavioral health provider within [7 or 30 days] of hospital discharge Goal Description: Catherine will attend 1 appointment with a behavioral health provider within [7 or 30 days] of hospital discharge Goal Priority: High Goal Status: Closed Goal Reason: Mbr Rep Unavailable Goal Date Identified: 03/09/2023 Goal Target Date: 03/29/2023 Related Interventions: Interventions: Intervention Description: Transitions of Care Traffic I Manager ([place]) will submit Team Connect/Care Connections referral Intervention Provider of Service: Intervention Date Initiated: 03/09/2023 Intervention Completion Date: 03/09/2023 Interventions: Intervention Description: Member will ve rbalize the importance of attending behavioral health appointment post discharge. Intervention Provider of Service: Intervention Date Initiated: 03/09/2023 Intervention Completion Date: 03/09/2023 Barriers:Barrier Description:SERVICE INFORMATION CONTACTS:NonePATIENT INFORMATION:Preferred Gender:Phone??(Home): [place] Contact Method: Address??(Physical):[address],??[id number]??(Mailing):[address],??[id number] OF [place]:NoneADVANCE DIRECTIVE:??UnknownType: Status:First Name:Last Name:LEGAL GUARDIAN:??UnknownFirst Name:Last Name: SUPPORTED DECISION MAKER:??UnknownFirst Name:Last Name: Goals Narrative
--- OUTSIDE RECORDS SUMMARY | 2024-04-09 16:15 | XMS_ITS ---
Care Plan Created on: March 16, 2023 RUBYCATHERINE : 1970 Sex: Male Author Name Dain BOUDREAUX Isabella CALLES Organization [place] Care Team Providers Care Vat Skimmer Name Role Phone Dain BOUDREAUX LCSW, Lydia Unavailable [facility] Health Concerns Section Plan Status: Active Member Care Plan: CATHERINE JIMENEZ HEMANTH Date Last Updated: 03/12/2023 Program Name: [facility] Enrollment Date: 02/26/2019 Disenrollment Date: WICT Indicator: No [place] Interdisciplinary Care Team (WICT) indicates a high-needs patient who receives coordinated care from an interdisciplinary team of health acute care occupational therapist. Providers should contact the listed Point of Contact of the Care Team to learn more about a patient's WICT. Transient Indicator: No Advance Directive Indicator: Unknown CARE TEAM: First Name: Isabella Last Name: Dain BOUDREAUX LCSW Title: Provisioning Analyst Phone (Work): Phone (Organizational): Phone (Fax): Email: [email or web address] Community [facility] Worker: [place] of Responsibility: [place] ADDITIONAL CONTACTS: Role: Organization Name: First Name: [...] Interventions: Interventions: Intervention Description: Transitions of Care Truck Hop ([place]) will submit Team Connect/Care Connections referral Intervention Provider of Service: Intervention Date Initiated: 03/09/2023 Intervention Completion Date: 03/09/2023 Interventions: Intervention Description: Member will ve rbalize the importance of attending behavioral health appointment post discharge. Intervention Provider of Service: Intervention Date Initiated: 03/09/2023 Intervention Completion Date: 03/09/2023 Barriers:Barrier Description:SERVICE INFORMATION CONTACTS:NonePATIENT INFORMATION:Preferred Gender:Phone??(Home): Besc Contact Method: Address??(Physical):[address],??[id number]??(Mailing):[address],??[id number] OF K[place]:NoneADVANCE DIRECTIVE:??UnknownType: Status:First Name:Last Name:LEGAL GUARDIAN:??UnknownFirst Name:Last Name: SUPPORTED DECISION MAKER:??UnknownFirst Name:Last Name: Goals Narrative
--- OUTSIDE RECORDS SUMMARY | 2024-04-09 16:15 | XMS_ITS | Clinical Summary ---
Author Organization [facility] Address [address] [address] [place] [address] Care Team Providers Care Oncology Rep Specialist Name Role Phone SYSTEM, PROVIDER NOT IN Primary Care Physician U PARIS Brennan Attending Clinician Unavailable DALE BRAUN Attending Clinician Unavailable TAB JARQUIN Admitting Clinician Unavaileunice srinivasan Payers Payer Name Policy Type Policy Number Effective Date Expira tion Date MEDICAID GENERIC [id number] 2023 00:00:00 MANAGED MEDICAID GENERIC [id number] 2023 00:00:00 Problems This patient has no known problems. Allergies, Adverse Reactions, Alerts This patient has no known allergies or adverse reactions. Medications Ordered Medication Name Filled Medication Name Start Date Stop Date Current Medication? Ordering Clinician Indication Dosage Frequency Signature (SIG) Comments Components QUEtiapine Fumarate 100 MG TABS QUEtiapine Fumarate 100 MG TABS 04-30 00:00: 00 Yes DOMINIC KNIGHT Private Pay ([place], Charge, Credit Card) DeaSchedu le:0 DrugClass :*Dibenza pines DrugSubCl ass:*Dibe nzothiaze pines Vital Signs Vital Name Observation Time Observation Value Commen ts HEIGHT 2023-06-20 18:19:00 5' 10 ft WEIGHT 2023-06-20 18:19:00 4000 oz Reason for Visit АНДРЕЙ ABD PELVCEN CT ANGIOGRAM CHST W WO CONCEN XR ED/INPATIENT Encounters Start Date/Time End Date/Time Encounter Type Admission Type Attending Clinicians Care Facility Care Department Encounter ID 2023-06-20 19:35:40 Dylan- BHAVESH OSPINA [id number] 2023-06-20 18:17:00 2023-06-21 10:15:00 Outpatient E PARIS NOLASCO [facility], MDL [id number] 2023-06-20 19:53:21 2023-06-20 19:53:21 Emergency E DALE BRAUN BHAVESH BLAKE [id number] 2023-06-20 19:53:14 2023-06-20 19:53:14 Emergency E DALE BRAUN BHAVESH GIBBONS [id number] 2023-06-20 19:10:50 2023-06-20 19:10:50 Emergency E DALE BRAUN BHAVESH BLAKE [id number] Results Test Description Test Time Test Comments Text Results Atomic Results Result Comments hsTroponin I 2023-06-21 11:28:00 hsTroponin I (test code = HSTROPIR) 16.9 ng/L <=77.0 The reference range is the 99th percentile for a reference population of males and females.It is intended as a rough guide.Results of this test should always be interpreted in conjunction with medical history, clinical presentation and other findings.Troponin can be elevated in other conditions such as heart failure, myocarditis, and renal failure to mention a few. Follow-up troponin levels, per established algorithms/protocol s, will help distinguish an acute versus chronic condition.*[facility] Reference Ranges: based on 99th percentileMale <77.0 ng/LFemale <52.0 ng/L Lipid Panel (no LDL Reflexed)2023-06-21 09:25:00* Test Item Value Reference Range Comments Cholesterol (test code = CHOL) 225 mg/dl 120-200 Triglyceride (test code = TRIG) 154 mg/dl <=149 HDL-C (test code = HDL) 35 mg/dl 40-60 Chol/HDL-C Ratio (test code = RCH) 6.4 ratio <=5.0 Non-HDL Cholesterol (test code = NONHDL) 190 mg/dl The reference range is the patient's target low density lipoprotein plus 30. LDL Calc (test code = LDL) 159 mg/dl <=99 LDL/HDL-C Ratio (test code = RLH) 4.6 ratio <=3.6 Risk of Developing C oronary Heart DiseaseFemale Guidelines Male GuidelinesUp to 1.5 Up to 1.0 Low Risk1.6 to 3.2 1.1 to 3.6 Average Risk3.3 to 5.0 3.7 to 6.3 Above Average Risk5.1 to 6.1 6.4 to 8.0 High Risk VLDL Calc (test code = VLDL) 31 mg/dl <=30 CT ABDOMEN PELVIS WITH [id number] 20:25:54REASON FOR EXAM: Epigastric painPer Radiologist ProtocolDISCUSSION:Technique: CT of the abdomen andpelvis performed with nonionic IV contrast. Multiplanar reconstruction.Findings:Gallbladder small, relatively contracted. No enlargement of liver or spleen. No adrenal nodule. Enhancement of the kidneys without hydronephrosis. Normal caliber aorta with atherosclerotic calcification.No small bowel obstruction. Normal appendix. Diverticulosis sigmoid colon without diverticulitis. No free fluid in the pelvis. Intact urinary bladder.There is a small segment of wall thickening distal sigmoid colon. Could be relative contraction. Correlate with sigmoidoscopy to exclude circumferential lesion/neoplasm.IMPRESSION:1. Sigmoid diverticulosis without diverticulitis.2. No appendicitis.3. There is a short segment of relative contraction distal sigmoid colon versus wall thickening. Recommend evaluating with sigmoidoscopy to exclude lesion.100cc Isovue 3708 - IndicatedCT ANGIOGRAM CHEST PULMONARY [id number] 20:17:55REASON FOR EXAM: Pulmonary Embolism DISCUSSION:CTA chest. Nonionic IV contrast. Sagittal and coronal maximum intensity projection reconstruction.There is enhancement of the pulmonary arterial system.There is no pulmonary embolus identified. No enlargement of pulmonary artery. Coronary artery calcifications. Aortic calcification. No cardiomegaly.No pleural effusion.No pneumonia. No pneumothorax. Central airway patent.Sternotomy wires.IMPRESSION:: 1. No acute finding.100cc Isovue 370Not ValidatedhsTroponin I 2023-06-20 19:55:00* Test Item Value Reference Range Comments hsTroponin I (test code = HSTROPIR) 11.4 ng/L <=77.0 The reference range is the 99th percentile for a reference population of males and females.It is intended as a rough guide.Results of this test should always be interpreted in conjunction with medical history, clinical presentation and other findings.Troponin can be elevated in other conditions such as heart failure, myocarditis, and renal failure to mention a few. Follow-up troponin levels, per established algorithms/protocols, will help distinguish an acute versus chronic condition.*[facility]I Reference Ranges: based on 99th percentileMale <77.0 ng/LFemale <52.0 ng/L D-Dimer, [id number] 19:42:00* Test Item Value Reference Range Comments D-Dimer (test code = DIMER) 1.17 mg/L FEU Interpretive Data fo r Quantitative D-Dimer Test:D-Dimers are known to be elevated in a variety of disorders including: advanced age,, coronary disease, cancer, liver disease, infection, inflammation, hematoma,DIC, trauma, post surgery, diabetes, thrombolytic therapy, and stress. D-Dimers may bedecreased in patients receiving anticoagulant therapy.1) Reference Range:Clinically asymptomatic patients may have D-Dimer values of up to 0.52 mg/L FEU (referencerange), but the DVT/PE cannot be ruled out unless the D-Dimer value is less than or equal to0.50 mg/L FEU (the negative cutoff).2) Evaluation of Deep Venous Thrombosis/Pulmonary Embolus (DVT/PE):< or =0.50: D-Dimer values of equal to or less than 0.50 mg/L FEU can be used to help rule outthe presence of DVT/PE, especially in conjunction with a low score on apreassessment risk screen (e.g. Wells Score). Clinical diagnosis should not bebased only on D-Dimer test results.0.51 - 0.52: D-Dimer values of 0.51 and 0.52 mg/L FEU are within reference range, but cannotrule out the presence of DVT/PE. Additional testing may be indicated, especiallywhen a preassessment risk screen (e.g. Wells Score) is moderate to high.>0.52: Suggests that DVT/PE or other fibrinolytic process is present.3) Evaluation of Coagulopathy0 - 0.52: Not indicative of Disseminated Intravascular Coagulopathy or other fibrinolyticprocess.>0.52: Indicative of Disseminated Intravascular Coagulopathy or other fibrinolyticprocess. XR CHEST 2 [id number] 19:34:32If hemodynamically stable. Obtain portable chest 1 view if hemodynamically unstable.REASON FOR EXAM: Chest Pain DISCUSSION:2 views chestPrevious coronary artery bypass. No cardiomegaly. No congestive heart failure. No pneumothorax or effusion or pneumonia.IMPRESSION:: 1. No acute process.2. Coronary artery bypass.HF Peptide (proBNP)2023-06-20 18:57:00* Test Item Value Reference Range Comments HF Peptide (proBNP) (test code = HFPEP) 206 pg/ml < =124 hsTroponin [id number] 18:56:00* Test Item Value Reference Range Comments hsTroponin I (test code = HSTROPIR) 13.0 ng/L <=77.0 The reference range is the 99th percentile for a reference population of males and females.It is intended as a rough guide.Results of this test should always be interpreted in conjunction with medical history, clinical presentation and other findings.Troponin can be elevated in other conditions such as heart failure, myocarditis, and renal failure to mention a few. Follow-up troponin levels, per established algorithms/protocols, will help distinguish an acute versus chronic condition.*[facility]I Reference Ranges: based on 99th percentileMale <77.0 ng/LFemale <52.0 ng/L CMP with [id number] 18:55:00* Test Item Value Reference Range Comments Glucose (test code = GLUC) 109 mg/dl 70-100 F or the purpose of classification, fasting Glucose from 100-125 mg/dl is considered impaired fasting Glucose (Pre-Diabetic) by the [place] [employer].Fasting Glucose > 125 mg/dl is indicative of Diabetes Mellitus, but must be confirmed. BUN (test code = BUN) 15 mg/dl 6-24 Creatinine (test code = CREAT) 1.04 mg/dl 0.60-1.30 Creatinine assay is IDMS-traceable. Sodium (test code = NA) 142 mmol/L 135-145 Potassium (test code = K) 4.2 mmol/L 3.7-5.1 Chloride (test code = CL) 104 mmol/L 96-110 CO2 (test code = CO2) 26.0 mmol/L 22.0-32.0 AGAP (test code = AGAP) 16 mmol/L <=20 Calcium (test code = CA) 9.1 mg/dl 8.5-10.5 Total Protein (test code = TP) 7.6 gm/dl 6.0-8.4 Albumin (test code = ALB) 3.7 gm/dl 3.5-5.0 Globulin (test code = GLOB) 3.9 gm/dl 2.0-4.4 AST (test code = AST) 35 u/l 10-40 Alkaline Phosphatase (test code = ALKP) 95 u/l 33-138 Bilirubin Total (test code = TBIL) 0.2 mg/dl 0.0-1.5 ALT (test code = ALT) 43 u/l 12-78 eGFR (test code = GFRE) 85 mL/min/1.73 m2 >=90 EFFECTIVE SEPTEMBER 23, 2021 : GFR is an estimated value based on the eGFRcr 2020 CKD-EPI equation, as recommended by the NKF-ASN Task Force. [id number] 18:55:00* Test Item Value Reference Range Comments Lipase (test code = LIP) 31 u/l 13-77 Lip ase method revision effective 08/25/22. Ranges and results prior to this date will not correlate. [id number] 18:37:00* Test Item Value Reference Range Comments WBC (test code = WBC) 10.1 k/ul 4.0-12.0 RBC (test code = RBC) 5.47 m/ul 4.30-5.90 Hemoglobin (test code = HGB) 15.9 gm/dl 13.5-17.5 Hematocrit (test code = HCT) 47.1 % 39.0-55.0 MCV (test code = MCV) 86 fl 80-100 MCH (test code = MCH) 29.1 pg 26.0-34.0 MCHC (test code = MCHC) 33.8 gm/dl 30.0-37.0 RDW (test code = RDW) 12.8 % 11.5-15.0 Platelet (test code = PLT) 267 k/ul 140-440 MPV (test code = MPV) 9.2 fl 8.5-12.5 .Differential, [id number] 18:37:00* Test Item Value Reference Range Comments Neutrophils (test code = ASEG) 61 % IG (test code = IG%) 0 % Lymphs (test code = PLYM) 25 % Monos (test code = PMONO) 10 % Eos (test code = PEOS) 3 % Basos (test code = PBASO) 1 % Neutro, Absolute (test code = ASE) 6.2 k/ul 1.5-8. 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 This nurse began to stress the seriousness of his situation educating him on potential symptomology and cardiac issues related to chest pain/ infarct and how this could lead to fatality. Patient still persistent on leaving AMA after education. Pt signed AMA paperwork and left independently. EDWIN RUTH [facility] 2023-06-21 10:15:00 Cardiology Consultat ion Note Patient: Catherine Garnett : 1970 Age: 52 y.o. 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 He reports history of bypass surgery in 2022. He was in the area making a delivery and developed the usual left-sided chest pain with some shortness of breath. He states that this has been happening when his blood pressure spikes. He has seen some pressures as high as 210/100 in the last few days. He denies any orthopnea, PND, or edema. He has had no syncope or presyncope. He had a little bit of chest pain this morning but it is resolved at the time of my evaluation. 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 Scheduled Meds: - albuterol sulfate 2.5 mg Nebulization Q4H While Awake - aspirin 325 mg Oral Daily - nicotine 14 mg TransDermal Daily - pantoprazole 40 mg Oral Nightly - QUEtiapine 50 mg Oral Nightly Continuous Infusions: PRN Meds:.albuterol sulfate, LORazepam, morphine injection, nitroglycerin, ondansetron OR ondansetron, Insert peripheral IV AND Saline lock IV AND sodium chloride, Insert peripheral IV AND Maintain IV access AND Saline lock IV AND sodium chloride Allergies Allergen Reactions - Vnobgpt-Bng-Afa Reductase Inhibitors Other reaction(s): MYALGIA Added per MD notation that he cannot tolerate statins for treatment Other reaction(s): joint pain ROS: Review of Systems Constitution: Negative for chills, fever, malaise/fatigue, weight gain and weight loss. HENT: Negative for headaches, hearing loss, nosebleeds and sore throat. Eyes: Negative for blurred vision and visual disturbance. Cardiovascular: Positive for left-sided chest pain at rest. Negative for claudication, dyspnea on exertion, irregular heartbeat, leg swelling, near-syncope, orthopnea, palpitations, paroxysmal nocturnal dyspnea and syncope. Respiratory: Negative for cough, hemoptysis, shortness of breath, snoring and wheezing. Endocrine: Negative for cold intolerance, heat intolerance, polydipsia and polyuria. Hematologic/Lymphatic: Negative for bleeding problem. Does not bruise/bleed easily. Skin: Negative for poor wound healing and rash. Musculoskeletal: Negative for back pain, joint pain and myalgias. Gastrointestinal: Negative for bloating, constipation, diarrhea, dysphagia, heartburn, hematochezia, melena, nausea and vomiting. Genitourinary: Negative for dysuria, hematuria and nocturia. Neurological: Negative for dizziness, focal weakness, light-headedness, loss of balance and numbness. Psychiatric/Behavioral: Negative for depression. The patient is not nervous/anxious. Reviewed and updated Past Medical History? Yes Extensive review of previous medical records completed? Yes Objective: Physical Exam: BP (!) 136/92 (BP Location: Right arm, Patient Position: Lying) Pulse 65 Temp 36.9 C (98.4 F) (Temporal Artery (forehead)) Resp 16 Ht 5' 10 (177.8 cm) Wt 113.4 kg (250 lb) SpO2 99% BMI 35.87 kg/m Body mass index is 35.87 kg/m . General: Well developed. Well nourished. Skin: No rashes or skin changes. HEENT: Negative. Fundi not examined. Oral mucosa and conjunctiva normal. Neck: No jugular venous distention or hepatojugular reflux. Thyroid midline and normal in size. Lungs: Clear to auscultation. Respirations unlabored. Heart: Regular rate and rhythm. No murmurs, gallops or rubs. PMI is not displaced. Abdomen: Soft and non tender. Bowel sounds are positive. No masses or bruits. Liver and spleen are not enlarged. Abdominal aorta is not enlarged to palpation. Extremities: No clubbing, cyanosis or edema. Vascular. Carotid, radial, femoral and dorsalis pedis pulses are normal. No carotid or femoral bruits. Neuro: Grossly intact. Musculoskeletal: No bony abnormalities. Thorax is symmetrical and normal in contour. Psychiatric: Alert and oriented X 3. Mood and affect are appropriate. Diagnostics: Most recent CXR: No acute cardiopulmonary process EKG/Telemetry: Sinus rhythm with PACs Lab results: Recent Labs 06/20/23 1828 WBC 10.1 HGB 15.9 PLT 267 Recent Labs 06/20/23 1828 GLU 109* BUN 15 CREATININE 1.04 NA 142 K 4.2 CL 104 CO2 26.0 AST 35 ALT 43 ALKPHOS 95 BILITOT 0.2 ALBUMIN 3.7 High Sensitivity Troponin I Date Value Ref Range Status 06/21/2023 16.9 <=77.0 ng/L Final Comment: The reference range is the 99th percentile for a reference population of males and females. It is intended as a rough guide. Results of this test should always be interpreted in conjunction with medical history, clinical presentation and other findings. Troponin can be elevated in other conditions such as heart failure, myocarditis, and renal failure to mention a few. Follow-up troponin levels, per established algorithms/protocols, will help distinguish an acute versus chronic condition. * [facility] Reference Ranges: based on 99th percentile Male <77.0 ng/L Female <52.0 ng/L Assessment Atypical angina Known coronary artery disease History of coronary artery bypass Drug screen positive for cocaine and opiates Hypertension Dyslipidemia Bipolar disorder Plan Mr. Garnett had bypass less than 2 years ago. His troponin has remained negative. There are no ischemic changes on his EKG. I suspect his angina may be related to hypertension and cocaine use. We do not have any other records and therefore I do recommend an ischemic evaluation. I wanted the patient to undergo a Cardiolite with Lexiscan stress. Shortly after my evaluation of the patient he decided to leave [place]. Stress testing was not completed. Thank you for allowing me to participate in the care of this very interesting patient. Please feel free to contact me with questions or concerns. Tab Jarquin MD, BART, FACC, CCDS [facility] [phone] 06/21/2023 12:07 PM TAB JARQUIN [facility] 2023-06-21 10:15:00 ------ Attestation signed by Elo Graves MD at 06/21/2023 5:35 PM Master Inpatient Attestation Pick List: CO-SIGN ONLY I Elo Graves MD have reviewed this note. Electronically signed by Elo Graves MD 06/21/2023 5:35 PM ------ Hospital Discharge Summary - Date of Service: 06/21/2023 Name: Catherine Garnett : 1970 Age: 52 y.o. Admit Date: 06/20/2023 Discharge date: 06/21/2023 (LOS: 0 days) PCP on file: PROVIDER NOT IN SYSTEM Code Status: Full Code Location of Service: [facility] Primary discharge diagnosis: Unstable angina (HCC) Hospital Discharge ACTIVE Problem List POA = present on admission Principal Problem: Unstable angina (HCC) (POA: Yes) Active Problems: Bipolar disease, chronic (HCC) (POA: Yes) Hypertension (POA: Yes) Cocaine use (POA: Yes) Tobacco abuse (POA: Not Applicable) Abnormal abdominal CT scan (POA: Yes) RESOLVED Hospital Problems Resolved Problems: * No resolved hospital problems. * Consultants: Cardiology (Dr. Jarquin) [facility] Performed * No surgery found * Pending lab and/or other tests requiring follow up: Hospital course summary: Catherine Garnett is a 52 y.o. male presents with chest pressure and sharp pains radiating down his left arm and neck. He reports associated nausea, sob, and no fever, chills, sweats, or sob. He says his symptoms started yesterday morning upon awakening. 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 He reports it currently as 10/05, and that it is constant. He reportd similar pain when he had his WA that required CABG times 4. In ER EKG and troponin negative for WA. He was admitted to [facility] services for unstable angina ED spoke with cardiology and they recommended exercise stress echo. Serial cardiac enzymes and EKGs negative He was given asa, will treat pain with ntg and morphine, and O2 prn. CTA neg for dissection or PE. He was seen by cardiology seen by cardiology who recommended nuclear stress testing however patient left AMA after cardiology evaluation understanding his risks including . Current Discharge Medication List CONTINUE these medications which have NOT CHANGED Details albuterol sulfate hfa 90 mcg/actuation aerosol inhaler Inhale 2 puffs into the lungs once every 4 (four) hours as needed for shortness of breath or wheezing. amLODIPine (NORVASC) 10 MG tablet Take 1 tablet (10 mg total) by mouth once daily. aspirin 81 MG EC tablet Take 2 tablets (162 mg total) by mouth once daily. carvediloL (COREG) 12.5 MG tablet Take 1 tablet (12.5 mg total) by mouth 2 (two) times a day with meals. isosorbide mononitrate (IMDUR) 30 MG 24 hr tablet Take 1 tablet (30 mg total) by mouth once daily. nicotine (NICODERM CQ) 21 mg/[address] 1 patch onto the skin once daily. pantoprazole (PROTONIX) 40 MG delayed-release tablet Take 1 tablet (40 mg total) by mouth daily every night. QUEtiapine (SEROquel) 50 MG tablet Take 1 tablet (50 mg total) by mouth daily every night. spironolactone (ALDACTONE) 25 MG tablet Take 1 tablet (25 mg total) by mouth once daily. Contact information for follow-up Provider Not In System Relationship: PCP - General Next Steps: Follow up Important diagnostic imaging: Chest Pain Heart Score Result Date: 06/21/2023 Dale Braun MD 06/21/2023 5:18 AM Chest Pain Heart Score Date/Time: 06/21/2023 5:17 AM Performed by: Dale Braun MD Authorized by: Paris Nolasco MD HEART Score for Chest Pain Patients History: 1 - Moderately suspicious EC - Non-specific repolarization disturbance Age: 1 - > 45 and < 65 years Risk Factors: 2 - >= 3 risk factors or history of atherosclerotic disease Troponin: 0 - <= 1x normal limit HEART Total Score: 5 - moderate risk CT Abdomen Pelvis with Contrast Result Date: 06/20/2023 REASON FOR EXAM: Epigastric pain Per Radiologist Protocol DISCUSSION: Technique: CT of the abdomen and pelvis performed with nonionic IV contrast. Multiplanar reconstruction. Findings: Gallbladder small, relatively contracted. No enlargement of liver or spleen. No adrenal nodule. Enhancement of the kidneys without hydronephrosis. Normal caliber aorta with atherosclerotic calcification. No small bowel obstruction. Normal appendix. Diverticulosis sigmoid colon without diverticulitis. No free fluid in the pelvis. Intact urinary bladder. There is a small segment of wall thickening distal sigmoid colon. Could be relative contraction. Correlate with sigmoidoscopy to exclude circumferential lesion/neoplasm. 1. Sigmoid diverticulosis without diverticulitis. 2. No appendicitis. 3. There is a short segment of relative contraction distal sigmoid colon versus wall thickening. Recommend evaluating with sigmoidoscopy to exclude lesion. CT Angiogram Chest Pulmonary Embolism Result Date: 06/20/2023 REASON FOR EXAM: Pulmonary Embolism DISCUSSION: CTA chest. Nonionic IV contrast. Sagittal and coronal maximum intensity projection reconstruction. There is enhancement of the pulmonary arterial system. There is no pulmonary embolus identified. No enlargement of pulmonary artery. Coronary artery calcifications. Aortic calcification. No cardiomegaly. No pleural effusion. No pneumonia. No pneumothorax. Central airway patent. Sternotomy wires. : 1. No acute finding. XR Chest 2 Views Result Date: 06/20/2023 REASON FOR EXAM: Chest Pain DISCUSSION: 2 views chest Previous coronary artery bypass. No cardiomegaly. No congestive heart failure. No pneumothorax or effusion or pneumonia. : 1. No acute process. 2. Coronary artery bypass. Disposition: Left against medical advice Condition: AMA I have seen and examined Catherine Garnett on 06/21/2023. Temp: 36.9 C (98.4 F) - BP: (!) 136/92 - Heart Rate: 65 - Resp: 16 - SpO2: 99 % Physical Exam Gen: wdwn,in Eyes: anicteric, eomi HENT: atnc, dry lips, oropharynx clear, moist oral mucosa Cv: rrr, no edema Pulm: clear, no accessory muscle use, chest wall tender with palpation Gi: soft, ntnd, no masses or hernias Skin: no rash or jaundice Psych: alert, normal affect, oriented Neuro: no tremors or dysarthria, decreased sensation of right thigh to calf area where had vessel harvested for CABG Ms: 5/5 BUE and BLE strength, no cyanosis, left shoulder and neck tender with palpation This discharge summary has been routed to PROVIDER NOT IN SYSTEM via [employer] message or fax. I spent 35 minutes on discharge activities for Catherine Garnett on 06/21/2023. Thank you for allowing me to participate in the care of Catherine Garnett. Electronically signed by: Radha Saleh APRN, 06/21/2023 at 11:59 AM I JOHANA Radha Saleh APRN performed the history, exam and assessment portions of this visit. RADHA SALEH [facility] 2023-06-21 08:24:05 ------ Summary: Cardiac Rehab ------ Cardiac Rehab rec'd order to evaluate patient. After reviewing med record, deferring evaluation and will reassess following nuclear stress test. WILLIAM DOWNEY [facility] 2023-06-21 01:02:14 History & Physical - Date of Service: 06/21/2023 Name: Catherine Garnett : 1970 Age: 52 y.o. PCP on file: PROVIDER NOT IN SYSTEM Code Status: Full Code Location of Service: [facility] 7MD Principal Problem: Unstable angina (HCC) Patient has been identified and has consented to be seen via telehealth for this visit. All those present in the private room have been identified and are allowed by the patient and the provider to participate in today's consult. History and physical performed in collaboration with Danuta Rivera RN SUBJECTIVE: Obtained from: the patient and review of medical record Chief Complaint / Reason for Visit: chest pain History of the present illness: Catherine Garnett is a 52 y.o. male presents with chest pressure and sharp pains radiating down his left arm and neck. He reports associated nausea, sob, and no fever, chills, sweats, or sob. He says his symptoms started yesterday morning upon awakening. 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 He reports it currently as 10/05, and that it is constant. He reports he had similar pain when he had his WA that required CABG times 4. ROS A complete review of systems is performed and all other systems were reviewed and negative except as noted above in the HPI. HISTORY: Past Medical History: Diagnosis Date - Bipolar disease, chronic (HCC) - Cocaine use - Hypertension - Neuropathy, leg numb after vein harvest from CABG - Shoulder pain, right chronic - Tobacco abuse Past Surgical History: Procedure Laterality Date - CORONARY ARTERY BYPASS GRAFT 1.5 yrs ago, 4 vessel bypass Family History Problem Relation Age of Onset - Heart disease Father - Heart disease Other Catherine Garnett reports that he has been smoking cigarettes. He has been exposed to tobacco smoke. He has never used smokeless tobacco. He reports that he does not currently use alcohol. He reports that he does not currently use drugs after having used the following drugs: Cocaine. Catherine Garnett is allergic to ndgvwfs-bma-tyq reductase inhibitors. Medications: Prior to Encounter Medication List (as reviewed in [facility]) Medications QUEtiapine (SEROquel) 50 MG tablet Sig: Take 1 tablet (50 mg total) by mouth daily every night. albuterol sulfate hfa 90 mcg/actuation aerosol inhaler Sig: Inhale 2 puffs into the lungs once every 4 (four) hours as needed for shortness of breath or wheezing. amLODIPine (NORVASC) 10 MG tablet Sig: Take 1 tablet (10 mg total) by mouth once daily. aspirin 81 MG EC tablet Sig: Take 2 tablets (162 mg total) by mouth once daily. carvediloL (COREG) 12.5 MG tablet Sig: Take 1 tablet (12.5 mg total) by mouth 2 (two) times a day with meals. isosorbide mononitrate (IMDUR) 30 MG 24 hr tablet Sig: Take 1 tablet (30 mg total) by mouth once daily. nicotine (NICODERM CQ) 21 mg/24 hr patch Sig: Place 1 patch onto the skin once daily. pantoprazole (PROTONIX) 40 MG delayed-release tablet Sig: Take 1 tablet (40 mg total) by mouth daily every night. spironolactone (ALDACTONE) 25 MG tablet Sig: Take 1 tablet (25 mg total) by mouth once daily. Comments: None OBJECTIVE: UpToDate Calculators First recorded vital signs: Temp: 36.5 C (97.7 F) - BP: 131/88 - Heart Rate: 66 - Resp: 19 - SpO2: 99 % Most recent vital signs: Temp: 36.4 C (97.5 F) - BP: (!) 147/80 - Heart Rate: 63 - Resp: 20 - SpO2: (S) 97 % (please keep on per SAY protocol) Physical Exam Gen: wdwn, distress due to chest pain Eyes: anicteric, eomi HENT: atnc, dry lips, oropharynx clear, moist oral mucosa Cv: rrr, no edema Pulm: clear, no accessory muscle use Gi: soft, ntnd, no masses or hernias Skin: no rash or jaundice Psych: alert, normal affect, oriented Neuro: no tremors or dysarthria, decreased sensation of right thigh to calf area where had vessel harvested for CABG Ms: 5/5 BUE and BLE strength, no cyanosis Data: Labs Reviewed COMPREHENSIVE METABOLIC PANEL - Abnormal; Notable for the following components: Result Value Glucose 109 (*) GFR Estimate 85 (*) All other components within normal limits B-TYPE NATRIURETIC PEPTIDE - Abnormal; Notable for the following components: CHF Peptide (proBNP) 206 (*) All other components within normal limits HIGH SENSITIVITY TROPONIN I HIGH SENSITIVITY TROPONIN I CBC WITH AUTO DIFFERENTIAL LIPASE D-DIMER, QUANTITATIVE DRUG SCREEN 8 URINE LIPID PANEL Imaging: CT Abdomen Pelvis with Contrast Final Result 1. Sigmoid diverticulosis without diverticulitis. 2. No appendicitis. 3. There is a short segment of relative contraction distal sigmoid colon versus wall thickening. Recommend evaluating with sigmoidoscopy to exclude lesion. CT Angiogram Chest Pulmonary Embolism Final Result : 1. No acute finding. XR Chest 2 Views Final Result : 1. No acute process. 2. Coronary artery bypass. Echocardiogram Stress Test Pharmacological (Results Pending) EKG Additional comments: I personally reviewed the patient's new clinical lab test results. I personally reviewed the patient's new radiology test results. I ordered lab and/or radiology testing during this visit. I reviewed the patient's current medications. I personally discussed the patient's plan of care with: bedside nurse and patient. This documentation includes a review and summation of old medical records. The following high risk factors are present and are supported by above documentation: > One or more chronic illness with severe exacerbation, progression, or treatment side effect Hospital Encounter ASSESSMENT & PLAN: UpToDate Search Principal Problem: Unstable angina (HCC) (POA: Yes) Active Problems: Bipolar disease, chronic (HCC) (POA: Yes) Hypertension (POA: Yes) Cocaine use (POA: Yes) Tobacco abuse (POA: Not Applicable) 1. Unstable angina (HCC) (POA: Yes): ED spoke with cardiology and they recommended exercise stress echo, but the patient told me they are unable to do treadmill, and all of his stress test have been medicated, so will change to pharmacological stress echo, will follow telemetry, serial cardiac enzymes and EKGs, and ensure no NTEMI or STEMI. Given asa, will treat pain with ntg and morphine, and O2 prn. 2. Bipolar disease, chronic (HCC) (POA: Yes):No acute issues will continue home meds 3. Polysubstance abuse/use: Counseled on smoking and cocaine cessation, and how it plays a negative part in his heart disease if continued 4. Htn, benign: Blood pressures are stable VTE prophylaxis: Caprini VTE Risk Score [06/20/23 9620] Age Related Risk Factor Subtotal: 1 Disease Related Risk Factors Subtotal: 2 Hematology Risk Factors Subtotal: 0 Mobility Related Risk Factors Subtotal: 0 Gender Specific Risk Factors Subtotal: 0 Surgery Related Risk Factors Subtotal: 0 Trauma Related Risk Factors Subtotal: 0 Total Risk Score: Moderate pharmacologic prophylaxis contraindicated due to: stress test and possible heart cath Thank you for allowing me to participate in the care of Catherine Garnett. Electronically signed by: PARIS NOLASCO MD, 06/21/2023 at 1:02 AM PARIS NOLASCO [facility] 2023-06-21 00:27:11 Respiratory Therapy Consult Assessment Primary Prob: Chest pain, unspecified type Smoking Hx: Social History Tobacco Use Smoking Status Every Day Types: Cigarettes Passive exposure: Current Smokeless Tobacco Never Pulmonary Hx: Asthma CXR/CT: No acute finding. Home O2: No Home O2 Prescription if applicable: Home O2 Supplier if applicable: Home regimen: Albuterol PRN SAY: Suspected- Stop Bang 7 Assessment: HR- 76 RR- 24 SpO2- 99% FiO2- RA Breath Sounds- Clear and diminished Mobility- Ambulatory Orientation- x4 Plan: PRN breathing txs, NOC pulse ox MIRNA RAY [facility] 2023-06-20 18:39:00 [facility] EMERGENCY DEPARTMENT ENCOUnter Pt Name: Catherine Garnett Birthdate 1970 Date of evaluation: 06/20/2023 Provider: Dale Braun MD CHIEF COMPLAINT Chief Complaint Patient presents with - Chest Pain Mid sternal, radiates to left shoulder & bilateral jaw, increases with deep breath. Hx cardiac surgery. Critical Care was not performed on this patient HISTORY OF PRESENT ILLNESS (Location/Symptom, Timing/Onset, Context/Setting, Quality, Duration, Modifying Factors, Severity.) Catherine Garnett is a 52 y.o. male who presents to the emergency department 1 day of chest pain. The patient states that since yesterday evening he has had chest pressure. Left-sided. Radiates to the left arm. States it is somewhat similar to previous symptoms he had when he required CABG. 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 States has been in and out of the hospital over the past year. States he used cocaine about 3 weeks ago. Does smoke cigarettes. Has felt like he has had fluid in his lungs for upwards of 3 weeks. Vomited 3 times this morning. On ROS - does endorse a bit of upper abdominal discomfort PMHx of coronary artery disease s/p CABG x3 (03/2022), ischemic cardiomyopathy with now normalized EF, hypertension, and dyslipidemia. Nursing Notes were reviewed. REVIEW OF SYSTEMS (2-9 systems for level 4, 10 or more for level 5) Review of Systems Cardiovascular: Positive for chest pain. Except as noted above the remainder of the review of systems was reviewed and negative. PAST MEDICAL HISTORY Past Medical History: Diagnosis Date - Bipolar disease, chronic (HCC) - Cocaine use - Hypertension - Neuropathy, leg numb after vein harvest from CABG - Shoulder pain, right chronic - Tobacco abuse SURGICAL HISTORY Past Surgical History: Procedure Laterality Date - CORONARY ARTERY BYPASS GRAFT 1.5 yrs ago, 4 vessel bypass CURRENT MEDICATIONS No current facility-administered medications on file prior to encounter. Current Outpatient Medications on File Prior to Encounter Medication Sig Dispense Refill - albuterol sulfate hfa 90 mcg/actuation aerosol inhaler Inhale 2 puffs into the lungs once every 4 (four) hours as needed for shortness of breath or wheezing. - amLODIPine (NORVASC) 10 MG tablet Take 1 tablet (10 mg total) by mouth once daily. - aspirin 81 MG EC tablet Take 2 tablets (162 mg total) by mouth once daily. - carvediloL (COREG) 12.5 MG tablet Take 1 tablet (12.5 mg total) by mouth 2 (two) times a day with meals. - isosorbide mononitrate (IMDUR) 30 MG 24 hr tablet Take 1 tablet (30 mg total) by mouth once daily. - nicotine (NICODERM CQ) 21 mg/[address] 1 patch onto the skin once daily. - pantoprazole (PROTONIX) 40 MG delayed-release tablet Take 1 tablet (40 mg total) by mouth daily every night. - QUEtiapine (SEROquel) 50 MG tablet Take 1 tablet (50 mg total) by mouth daily every night. - spironolactone (ALDACTONE) 25 MG tablet Take 1 tablet (25 mg total) by mouth once daily. ALLERGIES Dryrctz-ulh-gwa reductase inhibitors FAMILY HISTORY Family History Problem Relation Age of Onset - Heart disease Father - Heart disease Other SOCIAL HISTORY Social History Tobacco Use - Smoking status: Every Day Types: Cigarettes Passive exposure: Current - Smokeless tobacco: Never Substance Use Topics - Alcohol use: Not Currently - Drug use: Not Currently Types: Cocaine Comment: last use 3wks ago Past Medical, Family and Social History have been reviewed PHYSICAL EXAM (up to 7 for level 4, 8 or more for level 5) Vitals: 06/20/23 2200 06/20/23 2216 06/21/23 0032 06/21/23 0149 BP: 127/81 (!) 147/80 (!) 148/90 BP Location: Right arm Patient Position: Sitting Pulse: 76 63 60 Resp: 18 24 20 20 Temp: 36.4 C (97.5 F) 36.7 C (98.1 F) TempSrc: Temporal SpO2: 97% 99% (S) 97% 97% Weight: Height: Physical Exam Vitals and nursing note reviewed. Constitutional: General: He is not in acute distress. Appearance: He is well-developed. He is not ill-appearing or toxic-appearing. HENT: Head: Normocephalic and atraumatic. Right Ear: External ear normal. Left Ear: External ear normal. Mouth/Throat: Mouth: Mucous membranes are moist. Eyes: Conjunctiva/sclera: Conjunctivae normal. Pupils: Pupils are equal, round, and reactive to light. Neck: Thyroid: No thyromegaly. Trachea: No tracheal deviation. Cardiovascular: Rate and Rhythm: Normal rate and regular rhythm. Heart sounds: Normal heart sounds. Pulmonary: Effort: Pulmonary effort is normal. No respiratory distress. Breath sounds: Normal breath sounds. No wheezing. Abdominal: Palpations: Abdomen is soft. Tenderness: There is no abdominal tenderness. Musculoskeletal: General: No tenderness. Cervical back: Normal range of motion and neck supple. Right lower leg: Edema (trace - states this is chronic from vein graft for CABG) present. Skin: General: Skin is warm and dry. Neurological: General: No focal deficit present. Mental Status: He is alert. DIAGNOSTIC RESULTS EKG: All EKG's are interpreted by the Emergency Department Physician who either signs or Co-signs this chart in the absence of a home coordinator. Sinus rhythm with PAC - 70 - no ST deviation to activate cath laboratory technician. Some nonspecific changes otherwise. Repeat EKG at 2108 with sinus bradycardia rate 57. Otherwise normal EKG. RADIOLOGY: Non-plain film images such as CT, Ultrasound and MRI are read by the radiologist. Plain radiographic images are visualized and preliminarily interpreted by the emergency physician with the below findings: Interpretation per the Radiologist below, if available at the time of this note: CT Abdomen Pelvis with Contrast Final Result 1. Sigmoid diverticulosis without diverticulitis. 2. No appendicitis. 3. There is a short segment of relative contraction distal sigmoid colon versus wall thickening. Recommend evaluating with sigmoidoscopy to exclude lesion. CT Angiogram Chest Pulmonary Embolism Final Result : 1. No acute finding. XR Chest 2 Views Final Result : 1. No acute process. 2. Coronary artery bypass. Echocardiogram Stress Test Pharmacological (Results Pending) LABS: ED Lab Results Procedure Component Value Ref Range Date/Time Drug screen 8 urine [[id number]] (Abnormal) Collected: 06/20/23 2214 Order Status: Completed Specimen: Urine Updated: 06/21/23 0203 Alcohol, Urine Neg Screen Neg Screen Amphetamine Neg Screen Neg Screen Barbiturates Neg Screen Neg Screen Opiates Pos Screen Neg Screen Cocaine Pos Screen Neg Screen Benzodiazepines Neg Screen Neg Screen PCP Neg Screen Neg Screen Cannabinoid Neg Screen Neg Screen High Sensitive Troponin (Now and in 1 hour) [[id number]] Collected: 06/20/23 1930 Order Status: Completed Specimen: Blood Updated: 06/20/23 1955 High Sensitivity Troponin I 11.4 <=77.0 ng/L High Sensitive Troponin (Now and in 1 hour) [[id number]] Collected: 06/20/23 1828 Order Status: Completed Specimen: Blood Updated: 06/20/23 1856 High Sensitivity Troponin I 13.0 <=77.0 ng/L Comprehensive metabolic panel [[id number]] (Abnormal) Collected: 06/20/231827 Order Status: Completed Specimen: Blood Updated: 06/20/231854 Glucose 109 70 - 100 mg/dl BUN 15 6 - 24 mg/dl Creatinine 1.04 0.60 - 1.30 mg/dl Sodium 142 135 - 145 mmol/L Potassium 4.2 3.7 - 5.1 mmol/L Chloride 104 96 - 110 mmol/L CO2 26.0 22.0 - 32.0 mmol/L Anion Gap 16 <=20 mmol/L Calcium 9.1 8.5 - 10.5 mg/dl Total Protein 7.6 6.0 - 8.4 gm/dl Albumin 3.7 3.5 - 5.0 gm/dl Globulin 3.9 2.0 - 4.4 gm/dl AST 35 10 - 40 u/l Alkaline Phosphatase 95 33 - 138 u/l Total Bilirubin 0.2 0.0 - 1.5 mg/dl ALT 43 12 - 78 u/l GFR Estimate 85 >=90 mL/min/1.73 m2 CBC auto differential [[id number]] Collected: 06/20/231827 Order Status: Completed Specimen: Blood Updated: 06/20/231836 WBC 10.1 4.0 - 12.0 k/ul RBC 5.47 4.30 - 5.90 m/ul HEMOGLOBIN 15.9 13.5 - 17.5 gm/dl Hematocrit 47.1 39.0 - 55.0 % MCV 86 80 - 100 fl MCH 29.1 26.0 - 34.0 pg MCHC 33.8 30.0 - 37.0 gm/dl RDW 12.8 11.5 - 15.0 % Platelet Count 267 140 - 440 k/ul MPV 9.2 8.5 - 12.5 fl Neutrophils % 61 % Immature Granulocytes % 0 % Lymphs % 25 % Monocytes % 10 % Eosinophils Percent 3 % Basophils Percent 1 % Neutrophils Abs 6.2 1.5 - 8.0 k/ul Immature Granulocytes Abs 0.0 0.0 - 0.1 k/ul Lymphs Abs 2.5 1.0 - 4.5 k/ul Monocytes Abs 1.0 0.1 - 1.1 k/ul Eosinophils Absolute 0.3 0.0 - 0.4 k/ul Basophils Absolute 0.1 0.0 - 0.1 k/ul Lipase [[id number]] Collected: 06/20/231827 Order Status: Completed Specimen: Blood Updated: 06/20/231854 Lipase 31 13 - 77 u/l B-type natriuretic peptide [[id number]] (Abnormal) Collected: 06/20/231827 Order Status: Completed Specimen: Blood Updated: 06/20/231856 CHF Peptide (proBNP) 206 <=124 pg/ml D-dimer, quantitative [[id number]] Collected: 06/20/231827 Order Status: Completed Specimen: Blood Updated: 06/20/231941 D-Dimer Quantitative 1.17 mg/L FEU All other labs were within normal range or not returned as of this dictation. EMERGENCY DEPARTMENT COURSE and DIFFERENTIAL DIAGNOSIS / MDM: Vitals: ) Vitals: 06/20/23 2200 06/20/23 2216 06/21/23 0032 06/21/23 0149 BP: 127/81 (!) 147/80 (!) 148/90 BP Location: Right arm Patient Position: Sitting Pulse: 76 63 60 Resp: 18 24 20 20 Temp: 36.4 C (97.5 F) 36.7 C (98.1 F) TempSrc: Temporal SpO2: 97% 99% (S) 97% 97% Weight: Height: Catherine Garnett 52 y.o. male presented with chest pain. Hx of CABG - states somewhat similar to prior ischemic pain. While he had negative troponins as well as nonischemic EKG he continued to have some discomfort. CT of the chest abdomen pelvis were obtained. No acute process otherwise. Does have cocaine use hx. Spoke with cariology - will admit for observation and stress echo to hospital ist service ED Course as of 06/21/23 0512 Sun Jun 20, [id number] Discussed with Dr. Ritter mayonnaise mixer cardiology - reasonable to admit for stress echo [AB] ED Course User Index [AB] Dale Braun MD Administered Meds Date/Time Order Dose Route Action Comments 06/20/2023 185 CDT aspirin chewable tablet 324 mg Oral Given -- 06/20/20232216 CDT nitroglycerin (NITROSTAT) SL tablet 0.4 mg SubLINgual Given OK to give per 06/20/20232035 CDT morphine 4 mg/mL syringe 4 mg 4 mg IntraVENous Given -- 06/20/20232005 CDT iopamidoL (ISOVUE-370) 370 mg iodine /mL (76 %) injection 100 mL 100 mL IntraVENous Given -- 06/20/20232036 CDT furosemide (LASIX) injection 40 mg 40 mg IntraVENous Given -- Differential Diagnoses: considered during the patient's evaluation, including but not limited to, ACS, noncardiac chest pain, unstable angina, PE, doubt dissection, esophagitis Although these conditions were considered, only those items listed in the Final Impression section were diagnosed and treated. The remaining differential diagnoses were not present during the ED evaluation. External documents reviewed: Electronic Medical Record Clinical Decision Rules: HEART score Care Discussion I personally discussed the case with cardiology and Dr. Nolasco hospiastlist Shared Decision Making I discussed with the patient and, if available, the patient's family the findings of the patient's examination and test results in the emergency department. The risk and benefits of different treatment options were discussed and the patient and their family were allowed an opportunity to ask questions. We involved the patient and their family in the decision-making process and in the ultimate treatment and disposition decisions. CONSULTS: IP CONSULT TO NUTRITION SERVICES IP CONSULT TO CARDIAC REHABILITATION IP CONSULT TO RESPIRATORY CARE PROCEDURES: Chest Pain Heart Score Date/Time: 06/21/2023 5:17 AM Performed by: Dale Braun MD Authorized by: Paris Nolasco MD HEART Score for Chest Pain Patients History: 1 - Moderately suspicious EC - Non-specific repolarization disturbance Age: 1 - > 45 and < 65 years Risk Factors: 2 - >= 3 risk factors or history of atherosclerotic disease Troponin: 0 - <= 1x normal limit HEART Total Score: 5 - moderate risk CRITICAL CARE TIME Total Critical Care time was 0 minutes, excluding separately reportable procedures. There was a high probability of clinically significant/life threatening deterioration in the patient's condition which required my urgent intervention. FINAL IMPRESSION ED Diagnosis Diagnosis Comment Final diagnosis Chest pain, unspecified type -- DISPOSITION Admit [3] 06/20/2023 9:31 PM PATIENT REFERRED TO: Provider Not In System DISCHARGE MEDICATIONS: Medication List ASK your doctor about these medications amLODIPine 10 MG tablet Commonly known as: NORVASC Take 1 tablet (10 mg total) by mouth once daily. aspirin 81 MG EC tablet Take 2 tablets (162 mg total) by mouth once daily. carvediloL 12.5 MG tablet Commonly known as: COREG Take 1 tablet (12.5 mg total) by mouth 2 (two) times a day with meals. isosorbide mononitrate 30 MG 24 hr tablet Commonly known as: IMDUR Take 1 tablet (30 mg total) by mouth once daily. nicotine 21 mg/24 hr patch Commonly known as: NICODERM CQ Place 1 patch onto the skin once daily. pantoprazole 40 MG delayed-release tablet Commonly known as: PROTONIX Take 1 tablet (40 mg total) by mouth daily every night. ProAir HFA 90 mcg/actuation inhaler Generic drug: albuterol Inhale 2 puffs into the lungs once every 4 (four) hours as needed for shortness of breath or wheezing. QUEtiapine 50 MG tablet Commonly known as: SEROquel Take 1 tablet (50 mg total) by mouth daily every night. spironolactone 25 MG tablet Commonly known as: ALDACTONE Take 1 tablet (25 mg total) by mouth once daily. (Please note that portions of this note were completed with a voice recognition program. Efforts were made to edit the dictations but occasionally words are mis-transcribed.) MD Dale Peter MD 06/21/23 0518 DALE BRAUN [facility]
--- OUTSIDE RECORDS SUMMARY | 2024-04-09 16:15 | XMS_ITS | Referral Summary ---
Author Organization [facility] Address [address] [place] [id number] Care Team Providers Care Senior Android Developer Name Role Phone Physician, None DO Primary Care Provider Unavail able Encounters Date Type Department Care Team Description 03/10/2024 10:00 PM EST - 03/12/2024 6:27 PM EST Emergency [address] [address] Lynn Decker DO Gatla, Srinivas R, MD Hamza, Ashraf O, MD Chest pain, unspecified type (Primary Dx) Discharge Disposition: Home or Self Care from Last 3 Months Allergies Active Allergy Reactions Criticality Noted Date Comments Pollen Unknown Low 07/06/2011 Statins Myalgia,Unknown Medium 09/10/2015 Added per MD notation that he cannot tolerate statins for treatment Medications Medication Sig Dispensed Refills Start Date End Date Status spironolactone (ALDACTONE) 25 mg tablet Take 1 tablet by mouth daily. 02/26/2023 Active ranolazine (RANEXA) 500 mg 12 hr tablet Take 500 mg by mouth 2 times daily. 01/21/2024 Active QUEtiapine (SEROQUEL) 50 mg tablet Take 50 mg by mouth nightly. 09/13/2023 Active pantoprazole (PROTONIX) 40 mg enteric-coated tablet Take 40 mg by mouth daily. 02/26/2023 Active nitroglycerin (NITROSTAT) 0.[address] 0.4 mg under the tongue every 5 minutes as needed for Chest pain. 11/11/2023 Active nicotine (NICODERM CQ) 21 MG/24HR patch Place 1 patch on the skin daily. Active losartan (COZAAR) 50 mg tablet Take 50 mg by mouth daily. 01/22/2024 Active hydrocortisone (HYTONE) 1 % cream Apply 1 Application to skin 2 times daily as needed for Other. 02/26/2023 Active HYDROcodone-aceta minophen (NORCO) 5-325 mg per tablet Take 1 tablet by mouth every 8 hours as needed for Moderate Pain (pain scale 4-6) or patient description. 01/21/2024 Active ezetimibe (ZETIA) 10 mg tablet Take 10 mg by mouth nightly. 11/11/2023 Active escitalopram (LEXAPRO) 20 mg tablet Take 20 mg by mouth daily. 09/13/2023 Active clopidogrel (PLAVIX) 75 mg tablet Take 1 tablet by mouth daily. 01/22/2024 5 Active carvedilol (COREG) 12.5 mg tablet Take 1 tablet by mouth every 12 hours. 02/26/2023 Active calcium carbonate (TUMS) 500 mg chewable tablet Chew 1 tablet daily as needed. Active atorvastatin (LIPITOR) 80 mg tablet Take 80 mg by mouth nightly. 01/22/2024 Active aspirin EC 81 mg enteric coated tablet Take 1 tablet by mouth daily. 02/27/2023 Active ARIPiprazole (ABILIFY) 10 mg tablet Take 10 mg by mouth daily. 09/13/2023 Active albuterol HFA (PROVENTIL HFA, VENTOLIN HFA, PROAIR HFA) 108 (90 Base) MCG/ACT inhaler Take 2 puffs by inhalation every 4 hours as needed. 02/26/2023 Active isosorbide mononitrate ER (IMDUR) 30 mg 24 hr tablet Take 120 mg by mouth every morning. 01/21/2024 4 Discontinued amLODIPine (NORVASC) 10 mg tablet Take 10 mg by mouth daily. 02/27/2023 4 Discontinued Active Problems Problem Noted Date Diagnosed Date Chest pain, unspecified type 03/11/2024 CAD (coronary artery disease) 03/11/2024 Essential hypertension 03/11/2024 Moderate mixed hyperlipidemia not requiring stat in therapy 03/11/2024 Anxiety disorder 03/11/2024 Social History Tobacco Use Types Packs/Day Years Used Date Smoking Tobacco: Every Day Cigarettes Smokeless Tobacco: Current Alcohol Use Standard Drinks/Week Comments Not Currently 0 (1 standard drink = 0.6 oz pur e alcohol) [facility] Utilities Answer Date Recorded In the past 12 months has th e electric, gas, oil, or water [employer] threatened to shut off services in your [...] any time in the past 12 m [facility], were you homeless or living in a retirement (including now)? No 03/11/2024 Sex and Gender [...] EST Height 177.8 cm (5' 10) 03/11/2024 2:03 AM EST Body Mass Index 33.72 03/11/2024 2:03 AM EST Plan of Treatment Not on file Procedures Procedure Name Priority Date/Time Associated Diagnosis Comments CV NM STRESS CARDIOLOGY INTERP Routine 03/12/2024 10:35 AM EST Chest pain, unspecified type CV NM MYOCARDIAL PERFUSION REST AND STRESS, REGADENOSON Routine 03/12/2024 10:35 AM EST Chest pain, unspecified type COMPLETE BLOOD COUNT (CBC) W/DIFFERENTIAL Routine 03/12/2024 10:30 AM EST RENAL FUNCTION PANEL Routine 03/12/2024 10:30 AM EST MAGNESIUM Routine 03/12/2024 10:30 AM EST CV ECHO LIMITED WITH CONTRAST, LIMITED DOPPLER, AND COLOR FLOW Routine 03/11/2024 10:45 AM EST Chest pain, unspecified type EJECTION FRACTION ECHO 10:23 AM EST ELECTROCARDIOGRAM, COMPLETE STAT 03/11/2024 4:50 AM EST COMPLETE BLOOD COUNT (CBC) W/DIFFERENTIAL Routine 03/11/2024 3:38 AM EST RENAL FUNCTION PANEL Routine 03/11/2024 3:38 AM EST MAGNESIUM Routine 03/11/2024 3:38 AM EST TROPONIN I Timed 03/11/2024 3:[address] CESPEDES SINGLE VIEW STAT 03/11/2024 12:20 AM EST TROPONIN I Timed 03/10/2024 11:58 PM EST PROTIME-INR STAT 03/10/2024 10:12 PM EST APTT STAT 03/10/2024 10:12 PM EST TROPONIN I Timed 03/10/2024 10:12 PM EST COMPREHENSIVE METABOLIC PANEL STAT 03/10/2024 10:12 PM EST COMPLETE BLOOD COUNT (CBC) W/DIFFERENTIAL STAT 03/10/2024 10:12 PM EST ELECTROCARDIOGRAM, COMPLETE Routine 03/10/2024 10:04 PM EST from Last 3 Months Results * CV NM Stress [facility] [...] stdy to follow. Confirmed by Celine Riggins ([id number]) on 03/12/2024 11:11:35 AM Procedure Note Celine [...] stdy to follow. Confirmed by Celine Riggins ([id number]) on 03/12/2024 11:11:35 AM Gabriel Leal [facility] CV STRESS ORDERABLES * CV NM MYOCARDIAL [...] for stress imaging.The images were reviewed on [employer]. Lexiscan was utilized for the stress [...] rest SPECT images were obtained. 11.0 mCi [id number] Myoview was utilized at rest; 33.0 mCi of Tc99m Myoview was utilized for stress imaging.The images were reviewed on [employer] [facility]. Lexiscan was utilized for the stress [...] ejection fraction of 39%.Please correlate with echocardiogram. Gabriel [facility] ORDERABLES * (ABNORMAL) Complete Blood Count w/Differential (03/12/2024 10:30 AM EST) Only the most recent of3 resultswithin the time period is included. White Blood Cell 8.4 3.5 - 10.1 x10*9/L 03/12/2024 11:13 AM EST [facility] Red Blood Cell 5.41 4.31 - 5.48 x10*12/L 03/12/2024 11:13 AM EST [facility] Hemoglobin 15.0 13.5 - 17.0 g/dL 03/12/2024 11:13 AM EST [facility] Hematocrit 46.9 40.1 - 50.1 % 03/12/2024 11:13 AM EST [facility] Mean Cell Volume 86.7 80.0 - 100.0 fL 03/12/2024 11:13 AM EST [facility] Mean Cell Hemoglobin 27.7(L) 28.0 - 33.0 pg 03/12/2024 11:13 AM [facility] Mean Cell Hemoglobin Concentration 32.0 32.0 - 36.0 g/dL 03/12/2024 11:13 AM [facility] Red Cell Distribution Width 13.1 12.0 - 15.0 % 03/12/2024 11:13 AM [facility] Platelet 253 150 - 400 x10*9/L 03/12/2024 11:13 AM [facility] Mean Platelet Volume 9.7 8.0 - 12.0 fL 03/12/2024 11:13 AM [facility] Neutrophil Automated Absolute 5.47 1.60 - 7.20 x10*9/L 03/12/2024 11:13 AM [facility] Lymphocyte Automated Absolute 1.95 1.10 - 4.00 x10*9/L 03/12/2024 11:13 AM [facility] Monocyte Automated Absolute 0.76 0.00 - 0.90 x10*9/L 03/12/2024 11:13 AM [facility] Eosinophil Automated Absolute 0.15 0.00 - 0.40 x10*9/L 03/12/2024 11:13 AM [facility] Basophil Automated Absolute 0.06 0.00 - 0.10 x10*9/L 03/12/2024 11:13 AM [facility] Immature Granulocyte Automated Absolute 0.04 0.00 - 0.04 x10*9/L 03/12/2024 11:13 AM [facility] Immature Granulocyte Automated 0.5 % 03/12/2024 11:13 AM [facility] NUCLEATED RED BLOOD CELLS AUTOMATED 0.0 <=0.0 % 03/12/2024 11:13 AM [facility] Blood VENOUS BLOOD SPECIMEN / Unknown Venipuncture / Unknown 03/12/2024 10:30 AM EST 03/12/2024 11:05 AM EST Francois Mota DO LAB BLOOD ORDERABLES [facility] [address] [place] [address] * Magnesium, Blood Level (03/12/2024 10:30 AM EST) Only the most recent of2 resultswithin the time period is included. Magnesium 2.1 1.7 - 2.5 mg/dL 03/12/2024 11:40 AM EST [facility] Blood VENOUS BLOOD SPECIMEN / Unknown Venipuncture / Unknown 03/12/2024 10:30 AM EST 03/12/2024 11:05 AM EST Francois Mota DO LAB BLOOD ORDERABLES [facility] [address] [place] [address] * Renal Function Panel (03/12/2024 10:30 AM EST) Only the most recent of2 resultswithin the time period is included. Sodium 137 135 - 145 mmol/L 03/12/2024 11:40 AM [facility] Potassium 4.4 3.5 - 5.2 mmol/L 03/12/2024 11:40 AM [facility] Chloride 105 98 - 111 mmol/L 03/12/2024 11:40 AM EST [facility] Bicarbonate 23 20 - 29 mmol/L 03/12/2024 11:40 AM EST [facility] Anion Gap 9 5 - 17 mmol/L 03/12/2024 11:40 AM EST [facility] Glucose 77 70 - 99 mg/dL 03/12/2024 11:40 AM EST [facility] Blood Urea Nitrogen (BUN) 20 7 - 25 mg/dL 03/12/2024 11:40 AM EST [facility] Creatinine 0.92 0.60 - 1.30 mg/dL 03/12/2024 11:40 AM EST [facility] eGFR 98 >60 mL/min/1.7 3 m2 03/12/2024 11:40 AM EST [facility] Comment: Calculation based on the [...] - 10.5 mg/dL 03/12/2024 11:40 AM EST [facility] Albumin 3.8 3.5 - 5.1 g/dL 03/12/2024 11:40 AM EST [facility] Phosphorus 3.4 2.3 - 4.4 mg/dL 03/12/2024 11:40 AM EST [facility] Blood VENOUS BLOOD SPECIMEN / Unknown Venipuncture / Unknown 03/12/2024 10:30 AM EST 03/12/2024 11:05 AM EST Francois Mota DO LAB BLOOD ORDERABLES [facility] [address] [place] [address] * CV ECHO LIMITED WITH CONTRAST, LIMITED DOPPLER, AND COLOR FLOW (03/11/2024 10:45 AM EST) EJECTION FRACTION ECHO 65 % [facility] Anatomical Region Laterality Modality Chest Other 03/11/2024 10:2 3 AM EST Narrative 03/12/2024 12:06 PM EST Version: 1 Study ID: [id number] [facility] [address] [place] [id number] Adult Echocardiogram Report Name: CATHERINE NG Study Date: 03/11/2024, 10:23 AM Performed By: Bela Odell DOB: 1970 (MM/DD/YYYY) Age: 53 Years Reason For Study: chest pain, chest pain Gender: Male Patient Location: [address] Ordering Physician: JERONIMO LYNN: [id number] Electronically signed by: Ruben Matos 03/12/2024, 12:06 [...] MD - 03/12/2024 Version: 1 Study ID: [id number] [facility] [address] [place] [address] Adult Echocardiogram Report Name: CATHERINE NG Study Date: 03/11/2024, 10:23 AM Performed By: Bela Odell : 1970 (MM/DD/YYYY) Age: 53 Years Reason For Study: chest pain, chest pain Gender: Male Patient Location: [address] Ordering Physician: LYNN DECKER: [id number] Electronically signed by: Ruben Hung05/13/2023, 12:06 PM [...] Calculations LV EF Biplane: 57.6 % Lynn Decker DO ECHO ORDERABLES * EJECTION FRACTION ECHO (03/11/2024 10:23 AM EST) EJECTION FRACTION ECHO 65 % [facility] Anatomical Region Laterality Modality Other 03/11/2024 10:2 3 AM EST 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 03/11/2024 4:50 AM EST 03/11/2024 2:00 PM EST Narrative [facility] - 03/11/2024 2:00 PM EST Ventricular Rate 70 BPM Atrial Rate 70 BPM P-R Interval 144 ms QRS Duration 86 ms Q-T Interval 396 ms QTC Calculation(Bazett) 427 ms Calculated P [place] 57 degrees Calculated R [place] 3 degrees Calculated T [place] 80 degrees Diagnosis Sinus rhythm with Premature atrial complexes Otherwise normal ECG When compared with ECG of 10-MAR-2024 22:04, MANUAL COMPARISON REQUIRED, DATA IS UNCONFIRMED Confirmed by Lynn Decker ([id number]) on 03/11/2024 2:00:54 PM Procedure Note Lynn Decker DO - 03/11/2024 Ventricular Rate 70 BPM Atrial Rate 70 BPM P-R Interval 144 ms QRS Duration 86 ms Q-T Interval 396 ms QTC Calculation(Bazett) 427 ms Calculated P [place] 57 degrees Calculated R [place] 3 degrees Calculated T [place] 80 degrees Diagnosis Sinus rhythm with Premature atrial complexes Otherwise normal ECG When compared with ECG of 10-MAR-2024 22:04, MANUAL COMPARISON REQUIRED, DATA IS UNCONFIRMED Confirmed by Lynn Decker ([id number]) on 03/11/2024 2:00:54 PM Lynn Decker DO ECG ORDERABLES [facility] * Troponin I ( Lucía, [place], [place], and [place] only ) (03/11/2024 3:38 AM EST) Only the most recent of3 resultswithin the time period is included. Troponin I 0.01 <=0.03 ng/mL 03/11/2024 4:42 AM EST [facility] Comment: Normal: <0.04 Indeterminate: 0.04-0.29 Suggestive of Myocardial Damage: >=0.30 Troponin I is elevated in acute coronary syndromes with myocardial necrosis as well as ST elevation [place]. Increases are also associated with direct myocardial [...] EST Lynn Decker DO LAB BLOOD ORDERABLES [facility] [address] [place] [address] * Chest Single View (03/11/2024 12:20 AM [...] pneumothorax. IMPRESSION: No acute cardiopulmonary process Lynn Jeronimo [facility] RDER[facility] * Activated Partial Thromboplastin Time (APTT) (03/10/2024 10:12 PM EST) Activated Partial Thromboplastin Time 33.6 25.0 - 38.0 seconds 03/10/2024 10:41 PM EST [facility] Comment: Heparin Therapeutic Range: *ACS or Low Intensity: 55-75 seconds *VTE/acute thrombosis/A-fib/valves: 60-90 seconds Blood VENOUS BLOOD SPECIMEN / Unknown Collection / Unknown 03/10/2024 10:12 PM EST 03/10/2024 10:29 PM EST Lynn Talaveraiard LAB BLOOD ORDERABLES Performing Organization Address City/[facility]/ZIP Co de Phone Number [facility] [address] [place] [id number] * Prothrombin Time/INR (03/10/2024 10:12 PM EST) Prothrombin Time 11.3 9.2 - 13.5 seconds 03/10/2024 10:41 PM EST [facility] INR 1.0 03/10/2024 10:41 PM EST [facility] Comment: 2.0 to 3.0 therapeutic range for most indications 2.5 to 3.5 therapeutic range for certain mechanical heart valves Blood VENOUS BLOOD SPECIMEN / Unknown Collection / Unknown 03/10/2024 10:12 PM EST 03/10/2024 10:29 PM EST Lynn Talaveraiard LAB BLOOD ORDERABLES Performing Organization Address City/[facility]/ZIP Co de Phone Number [facility] [address] [place] [phone] * (ABNORMAL) Comprehensive Metabolic Panel (CMP) (03/10/2024 10:12 PM EST) Sodium 138 135 - 145 mmol/L 03/10/2024 10:56 PM [facility] Potassium 4.1 3.5 - 5.2 mmol/L 03/10/2024 10:56 PM [facility] Chloride 106 98 - 111 mmol/L 03/10/2024 10:56 PM [facility] Bicarbonate 21 20 - 29 mmol/L 03/10/2024 10:56 PM [facility] Anion Gap 11 5 - 17 mmol/L 03/10/2024 10:56 PM [facility] Glucose 131(H) 70 - 99 mg/dL 03/10/2024 10:56 PM [facility] Blood Urea Nitrogen (BUN) 19 7 - 25 mg/dL 03/10/2024 10:56 PM [facility] Creatinine 1.00 0.60 - 1.30 mg/dL 03/10/2024 10:56 PM [facility] Calcium 8.9 8.5 - 10.5 mg/dL 03/10/2024 10:56 PM [facility] Protein Total 6.9 6.4 - 8.3 g/dL 03/10/2024 10:56 PM [facility] Albumin 3.6 3.5 - 5.1 g/dL 03/10/2024 10:56 PM [facility] Globulin 3.3 2.2 - 4.0 g/dL 03/10/2024 10:56 PM [facility] Albumin/Globulin Ratio 1.1 03/10/2024 10:56 PM [facility] Bilirubin Total 0.2(L) 0.3 - 1.2 mg/dL 03/10/2024 10:56 PM [facility] Alkaline Phosphatase 93 33 - 120 U/L 03/10/2024 10:56 PM [facility] Alanine Aminotransferase (ALT) 32 9 - 47 U/L 03/10/2024 10:56 PM [facility] Aspartate Aminotransferase (AST) 23 <35 U/L 03/10/2024 10:56 PM [facility] eGFR 89 >60 mL/min/1. 73 m2 03/10/2024 10:56 PM EST [facility] Comment: Calculation based on the [...] EST Lynn Decker DO LAB BLOOD ORDERABLES [facility] [address] [place] [address] from Last 3 Months Advance Directives For more information, please contact: [phone] * Full Code (Latest Code Status on File) Date Activated Date Inactivated Comments 03/11/2024 2:32 AM 03/12/2024 10:33 PM Question Answer Comments Decision made by: Patient Care Teams Senior Android Developer Relationship Specialty Start Date End Date Physician, None, DO PCP - General 03/10/24
--- OUTSIDE RECORDS SUMMARY | 2024-04-09 16:15 | XMS_ITS | Clinical Summary ---
Author Organization [facility] Address [address] [place] [id number] Care Team Providers Care Solar Sales Consultant Name Role Phone Physician, None DO Primary Care Provider Unavail able Allergies Active Allergy Reactions Criticality Noted Date [...] stat in therapy 03/11/2024 Anxiety disorder 03/11/2024 Encounters Date Type Department Care Team Description 03/10/2024 10:00 PM EST - 03/12/2024 6:27 PM EST Emergency [address] [id number] Lynn Decker DO Gatla, Srinivas R, MD Hamza, Ashraf O, MD Chest pain, unspecified type (Primary Dx) Discharge Disposition: Home or Self Care from Last 3 Months Social History Tobacco Use Types Packs/Day Years Used Date Smoking Tobacco: Every Day Cigarettes Smokeless Tobacco: Current Alcohol Use Standard Drinks/Week Comments Not Currently 0 (1 standard drink = 0.6 oz pur e alcohol) [facility] Utilities Answer Date Recorded In the past 12 months has th e electric, gas, oil, or water [employer] Trading threatened to shut off services in your [...] any time in the past 12 m [facility], were you homeless or living in a correction (including now)? No 03/11/2024 Sex and Gender [...] 03/11/2024 2:03 AM EST Plan of Treatment Health Maintenance Due Date Last Done Comments CT Colonography 1968 Colonoscopy 1968 Colorectal Cancer Screening 1968 FIT-DNA 1968 FIT/iFOBT 1968 Hepatitis C Antibody Screening 1968 PSA Screening 1968 Sigmoidoscopy 1968 Pneumococcal Vaccine (0-64) (1 of 2 - PCV) 1974 Tobacco Cessation Counseling 1980 HIV SCREENING 10/04/1983 Hepatitis B Vaccine (1 of 3 - 19+ 3-dose series) 10/04/1987 Health Maintenance Exam (Adult) 07/03/2015 5 Shingrix Vaccine (1 of 2) 2018 DTaP/Tdap/Td Vaccine (2 - Td or Tdap) 11/06/2018 11/06/2008 Flu Vaccine (#1) 10/28/2023 12/29/2006, 12/2003, 01/16/2003 COVID-19 Vaccine (3 - 2023-2 5 season) 2023 01/17/2021, 12/27/2020 Chronic Disease Monitoring L ipid Panel 01/16/2025 01/17/2024, 12/22/2023, 11/10/2023, Additional history exists Procedures Procedure Name Priority Date/Time Associated Diagnosis [...] stdy to follow. Confirmed by Celine Riggins ([id number]) on 03/12/2024 11:11:35 AM Procedure Note Celine [...] stdy to follow. Confirmed by Celine Riggins ([id number]) on 03/12/2024 11:11:35 AM Gabriel Leal [facility] CV STRESS ORDERABLES * CV NM [...] rest SPECT images were obtained. 11.0 mCi [id number] Myoview was utilized at rest; 33.0 mCi [...] fraction of 39%.Please correlate with echocardiogram. Gabriel Leal [facility] ORDERABLES * (ABNORMAL) Complete Blood Count w/Differential (03/12/2024 10:30 AM EST) Only the most recent of3 resultswithin the time period is included. White Blood Cell 8.4 3.5 - 10.1 x10*9/L 03/12/2024 11:13 AM [facility] Red Blood Cell 5.41 4.31 - 5.48 x10*12/L 03/12/2024 11:13 AM [facility] Hemoglobin 15.0 13.5 - 17.0 g/dL 03/12/2024 11:13 AM [facility] Hematocrit 46.9 40.1 - 50.1 % 03/12/2024 11:13 AM [facility] Mean Cell Volume 86.7 80.0 - 100.0 fL 03/12/2024 11:13 AM [facility] Mean Cell Hemoglobin 27.7(L) 28.0 - 33.0 pg 03/12/2024 11:13 AM [facility] Mean Cell Hemoglobin Concentration 32.0 32.0 - 36.0 g/dL 03/12/2024 11:13 AM [facility] Red Cell Distribution Width 13.1 12.0 - 15.0 % 03/12/2024 11:13 AM [facility] Platelet 253 150 - 400 x10*9/L 03/12/2024 11:13 AM [facility] Mean Platelet Volume 9.7 8.0 - 12.0 fL 03/12/2024 11:13 AM [facility] Neutrophil Automated Absolute 5.47 1.60 - 7.20 x10*9/L 03/12/2024 11:13 AM [facility] Lymphocyte Automated Absolute 1.95 1.10 - 4.00 x10*9/L 03/12/2024 11:13 AM [facility] Monocyte Automated Absolute 0.76 0.00 - 0.90 x10*9/L 03/12/2024 11:13 AM EST [facility] Eosinophil Automated Absolute 0.15 0.00 - 0.40 x10*9/L 03/12/2024 11:13 AM EST [facility] Basophil Automated Absolute 0.06 0.00 - 0.10 x10*9/L 03/12/2024 11:13 AM EST [facility] Immature Granulocyte Automated Absolute 0.04 0.00 - 0.04 x10*9/L 03/12/2024 11:13 AM EST [facility] Immature Granulocyte Automated 0.5 % 03/12/2024 11:13 AM EST [facility] NUCLEATED RED BLOOD CELLS AUTOMATED 0.0 <=0.0 % 03/12/2024 11:13 AM EST [facility] Blood VENOUS BLOOD SPECIMEN / Unknown Venipuncture / Unknown 03/12/2024 10:30 AM EST 03/12/2024 11:05 AM EST Francois Mota DO LAB BLOOD ORDERABLES [facility] [address] [place] [address] * Magnesium, Blood Level (03/12/2024 10:30 AM EST) Only the most recent of2 resultswithin the time period is included. Magnesium 2.1 1.7 - 2.5 mg/dL 03/12/2024 11:40 AM EST [facility] Blood VENOUS BLOOD SPECIMEN / Unknown Venipuncture / Unknown 03/12/2024 10:30 AM EST 03/12/2024 11:05 AM EST Francois Mota DO LAB BLOOD ORDERABLES [facility] [address] [place] [address] * Renal Function Panel (03/12/2024 10:30 AM EST) Only the most recent of2 resultswithin the time period is included. Sodium 137 135 - 145 mmol/L 03/12/2024 11:40 AM [facility] Potassium 4.4 3.5 - 5.2 mmol/L 03/12/2024 11:40 AM [facility] Chloride 105 98 - 111 mmol/L 03/12/2024 11:40 AM [facility] Bicarbonate 23 20 - 29 mmol/L 03/12/2024 11:40 AM [facility] Anion Gap 9 5 - 17 mmol/L 03/12/2024 11:40 AM [facility] Glucose 77 70 - 99 mg/dL 03/12/2024 11:40 AM [facility] Blood Urea Nitrogen (BUN) 20 7 - 25 mg/dL 03/12/2024 11:40 AM [facility] Creatinine 0.92 0.60 - 1.30 mg/dL 03/12/2024 11:40 AM [facility] eGFR 98 >60 mL/min/1.7 3 m2 03/12/2024 11:40 AM [facility] Comment: Calculation based on the Chronic [...] 8.5 - 10.5 mg/dL 03/12/2024 11:40 AM [facility] Albumin 3.8 3.5 - 5.1 g/dL 03/12/2024 11:40 AM [facility] Phosphorus 3.4 2.3 - 4.4 mg/dL 03/12/2024 11:40 AM [facility] Blood VENOUS BLOOD SPECIMEN / Unknown Venipuncture / Unknown 03/12/2024 10:30 AM EST 03/12/2024 11:05 AM EST Francois Nakul DO LAB BLOOD ORDERABLES [facility] [address] [place] [address] * CV ECHO LIMITED WITH CONTRAST, LIMITED DOPPLER, AND COLOR FLOW (03/11/2024 10:45 AM EST) EJECTION FRACTION ECHO 65 % [facility] Anatomical Region Laterality Modality Chest Other 03/11/2024 10:2 3 AM EST Narrative 03/12/2024 12:06 PM EST Version: 1 Study ID: [id number] [facility] Non Invasive Cardiology [address] [place] [address] Adult Echocardiogram Report Name: CATHERINE NG Study Date: 03/11/2024, 10:23 AM Performed By: Bela Odell : 1970 (MM/BELA/YYYY) Age: 53 Years Reason For Study: chest pain, chest pain Gender: Male Patient Location: [address] Ordering Physician: LYNN DECKER: [id number] Electronically signed by: Ruben Matos 03/12/2024, 12:06 [...] MD - 03/12/2024 Version: 1 Study ID: [id number] [facility] Non Invasive Cardiology [address] [place] [address] Adult Echocardiogram Report Name: CATHERINE NG Study Date: 03/11/2024, 10:23 AM Performed By: Bela Odell : 1970 (MM/DD/YYYY) Age: 53 Years Reason For Study: chest pain, chest pain Gender: Male Patient Location: [address] Ordering Physician: LYNN DECKER: [id number] Electronically signed by: Ruben Hung05/13/2023, 12:06 PM [...] EST) EJECTION FRACTION ECHO 65 % [facility] Anatomical Region Laterality Modality Other 03/11/2024 10:2 3 AM EST Generic Airplane Pilot Supervisor Cupid EJECTION FRAC TION * Electrocardiogram, Complete (03/11/2024 4:50 AM EST) Only the most recent of2 resultswithin the time period is included. 03/11/2024 4:50 AM EST 03/11/2024 2:00 PM EST Narrative [employer] [facility] - 03/11/2024 2:00 PM EST Ventricular Rate 70 BPM Atrial Rate 70 BPM P-R Interval 144 ms QRS Duration 86 ms Q-T Interval 396 ms QTC Calculation(Bazett) 427 ms Calculated P [place] 57 degrees Calculated R [place] 3 degrees Calculated T [place] 80 degrees Diagnosis Sinus rhythm with Premature atrial complexes Otherwise normal ECG When compared with ECG of 10-MAR-2024 22:04, MANUAL COMPARISON REQUIRED, DATA IS UNCONFIRMED Confirmed by Lynn Decker ([id number]) on 03/11/2024 2:00:54 PM Procedure Note Lynn Decker DO - 03/11/2024 Ventricular Rate 70 BPM Atrial Rate 70 BPM P-R Interval 144 ms QRS Duration 86 ms Q-T Interval 396 ms QTC Calculation(Bazett) 427 ms Calculated P [place] 57 degrees Calculated R [place] 3 degrees Calculated T [place] 80 degrees Diagnosis Sinus rhythm with Premature atrial complexes Otherwise normal ECG When compared with ECG of 10-MAR-2024 22:04, MANUAL COMPARISON REQUIRED, DATA IS UNCONFIRMED Confirmed by Lynn Decker ([id number]) on 03/11/2024 2:00:54 PM Lynn Decker DO ECG ORDERABLES [facility] * Troponin I ( Ham Castrejon, Tye, and Greer only ) (03/11/2024 3:38 AM EST) Only the most recent of3 resultswithin the time period is included. Troponin I 0.01 <=0.03 ng/mL 03/11/2024 4:42 AM EST [facility] Comment: Normal: <0.04 Indeterminate: 0.04-0.29 Suggestive of Myocardial Damage: >=0.30 Troponin I is elevated in acute coronary syndromes with myocardial necrosis as well as ST elevation CT. Increases are also associated with direct myocardial [...] EST Lynn Decker DO LAB BLOOD ORDERABLES Performing Organization Address City/[facility]/ZIP Co de Phone Number [facility] [address] [place] [address] * Chest Single View (03/11/2024 12:20 AM [...] Decker DO DIAGNOSTIC IMAGING O RDERABLES * Activated Partial Thromboplastin Time (APTT) (03/10/2024 10:12 PM EST) Activated Partial Thromboplastin Time 33.6 25.0 - 38.0 seconds 03/10/2024 10:41 PM EST [facility] Comment: Heparin Therapeutic Range: *ACS or Low Intensity: 55-75 seconds *VTE/acute thrombosis/A-fib/valves: 60-90 seconds Blood VENOUS BLOOD SPECIMEN / Unknown Collection / Unknown 03/10/2024 10:12 PM EST 03/10/2024 10:29 PM EST Lynn Decker DO LAB BLOOD ORDERABLES Performing Organization Address City/[facility]/ZIP Co de Phone Number [facility] [address] [place] [address] * Prothrombin Time/INR (03/10/2024 10:12 PM EST) Prothrombin Time 11.3 9.2 - 13.5 seconds 03/10/2024 10:41 PM EST [facility] INR 1.0 03/10/2024 10:41 PM EST [facility] Comment: 2.0 to 3.0 therapeutic range for most indications 2.5 to 3.5 therapeutic range for certain mechanical heart valves Blood VENOUS BLOOD SPECIMEN / Unknown Collection / Unknown 03/10/2024 10:12 PM EST 03/10/2024 10:29 PM EST Lynn Decker DO LAB BLOOD ORDERABLES [facility] [address] [place], [place] [id number] * (ABNORMAL) Comprehensive Metabolic Panel (CMP) (03/10/2024 10:12 PM EST) Sodium 138 135 - 145 mmol/L 03/10/2024 10:56 PM EST [facility] Potassium 4.1 3.5 - 5.2 mmol/L 03/10/2024 10:56 PM EST [facility] Chloride 106 98 - 111 mmol/L 03/10/2024 10:56 PM EST [facility] Bicarbonate 21 20 - 29 mmol/L 03/10/2024 10:56 PM EST [facility] Anion Gap 11 5 - 17 mmol/L 03/10/2024 10:56 PM EST [facility] Glucose 131(H) 70 - 99 mg/dL 03/10/2024 10:56 PM EST [facility] Blood Urea Nitrogen (BUN) 19 7 - 25 mg/dL 03/10/2024 10:56 PM EST [facility] Creatinine 1.00 0.60 - 1.30 mg/dL 03/10/2024 10:56 PM EST [facility] Calcium 8.9 8.5 - 10.5 mg/dL 03/10/2024 10:56 PM EST [facility] Protein Total 6.9 6.4 - 8.3 g/dL 03/10/2024 10:56 PM [facility] Albumin 3.6 3.5 - 5.1 g/dL 03/10/2024 10:56 PM [facility] Globulin 3.3 2.2 - 4.0 g/dL 03/10/2024 10:56 PM [facility] Albumin/Globulin Ratio 1.1 03/10/2024 10:56 PM [facility] Bilirubin Total 0.2(L) 0.3 - 1.2 mg/dL 03/10/2024 10:56 PM [facility] Alkaline Phosphatase 93 33 - 120 U/L 03/10/2024 10:56 PM [facility] Alanine Aminotransferase (ALT) 32 9 - 47 U/L 03/10/2024 10:56 PM [facility] Aspartate Aminotransferase (AST) 23 <35 U/L 03/10/2024 10:56 PM [facility] eGFR 89 >60 mL/min/1. 73 m2 03/10/2024 10:56 PM [facility] Comment: Calculation based on the Chronic [...] EST Lynn Decker DO LAB BLOOD ORDERABLES [facility] [address] [place] [address] from Last 3 Months Advance Directives For more information, please contact: [phone] * Full Code (Latest Code Status on File) Date Activated Date Inactivated Comments 03/11/2024 2:32 AM 03/12/2024 10:33 PM Question Answer Comments Decision made by: Patient Care Teams Solar Sales Consultant Relationship Specialty Start Date End Date Physician, None, DO PCP - General 03/10/24
--- OUTSIDE RECORDS SUMMARY | 2024-04-09 16:16 | XMS_ITS | Summary of Care ---
Author Organization [facility] Address [address] [place] [address] Care Team Providers Care Manuscript Editor Name Role Phone Christy Gonzalez MD Primary Care Provider [phone] Abbey Castano DUMPMAN Unavailable Unavailable Reason for Visit * Reason Comments Chest Pain Encounter Details Date Type Department Care Team (Late st Contact Info) Description 04/04/2024 8:13 PM LOG DECKMAN - 04/04/2024 10:24 PM [facility] Emergency [facility] [address] [place] [address] Héctor Castillo MD [address] [place] [address] Chest pain in adult (Primary Dx) Discharge Disposition: Home or Self Care Allergies Active Allergy Reactions Criticality Noted Date Comments Pollen Low 07/06/2011 Statins MYALGIA Medium 09/10/2015 Added per notation that he cannot tolerate statins for treatment documented as of this encounter (statuses as of 04/05/2024) Medications Medication Sig Dispensed Refills Start Date End Date Status calcium carbonate (TUMS) 500 MG chewable tablet Chew 1 tablet by mouth as needed for Heartburn. Active albuterol (ProAir HFA) 108 (90 Base) MCG/ACT inhalerIndications :Asthma Inhale 2 puffs into the lungs every 4 hours as needed for Shortness of Breath or Wheezing. 8.5 g 1 02/26/2023 Active aspirin (ECOTRIN) 81 MG EC tabletIndications: Atherosclerotic Disease Take 1 tablet by mouth daily. 15 tablet 1 02/27/2023 Active carvedilol (COREG) 12.5 MG tabletIndications: Hypertension Take 1 tablet by mouth every 12 hours. 30 tablet 1 02/26/2023 Active hydroCORTisone (CORTIZONE) 1 % cream Apply topically 2 times daily as needed (rash). 28 g 02/26/2023 Active spironolactone (ALDACTONE) 25 MG tabletIndications: Hypertension Take 1 tablet by mouth daily. 15 tablet 1 02/26/2023 Active atorvastatin (LIPITOR) 80 MG tablet Take 80 mg by mouth at bedtime. 01/22/2024 Active ezetimibe (ZETIA) 10 MG tablet Take 10 mg by mouth at bedtime. 11/11/2023 Active losartan (COZAAR) 50 MG tablet Take 50 mg by mouth daily. 01/22/2024 Active ranolazine (RANEXA) 500 MG 12 hr tablet Take 500 mg by mouth in the morning and 500 mg in the evening. 01/21/2024 Active clopidogrel (PLAVIX) 75 MG tablet Take 1 tablet by mouth daily. 90 tablet 3 02/24/2024 02/18/2025 Active QUEtiapine (SEROquel) 50 MG tabletIndications: Bipolar Mood Disorder Take 1 tablet by mouth at bedtime. Indications: Manic-Depression 90 tablet 3 03/14/2024 Active escitalopram (LEXAPRO) 20 MG tabletIndications: Obsessive Compulsive Disorder Take 1 tablet by mouth daily. Indications: Obsessive Compulsive Disorder 90 tablet 3 03/14/2024 Active ARIPiprazole (ABILIFY) 10 MG tabletIndications: Mixed Bipolar Affective Disorder Take 1 tablet by mouth daily. Indications: MIXED BIPOLAR AFFECTIVE DISORDER 90 tablet 3 03/14/2024 Active documented as of this encounter (statuses as of 04/05/2024) Active Problems Problem Noted Date Diagnosed Date History of attention deficit hyperactivity disor hilda (ADHD) 03/10/2023 Bipolar disorder, curr episo de mixed, severe, with psychotic features (CMD) 03/10/2023 Chest pain, unspecified type 02/17/2023 Hypertensive urgency 12/17/2022 Pleural effusion, bilateral 04/25/2022 S/P CABG x 3 04/13/2022 ACS (acute coronary syndrome) (CMD) 04/10/2022 Syncope and collapse 04/10/2020 Assessment & Plan (04/10/2020 1:59 PM LOG DECKMAN): He had 3 episodes of syncope in the summer and since then he has multiple episodes of near syncope. All his episodes are after standing and walking suggest of autonomic dysfunction vs. Vagal mediated problem. The echo was normal in January 2020. He had 2 days monitor in January 2020 showed no significant arrhythmia with no symptoms. Labs (Referred by Dr. Mayen). 1. Discussed with patient the findings and options of management. 2. Plan for Tilt table test. 3. The procedure, risk, benefit, and alternatives were discussed with patient in details. The patient understand and wishes to proceed. Booklet will be mailed to the patient. 4. Check TSH, CBC, CMP. 5. Follow up in one month after the Tilt table test. 6. If the Tilt table test negative, then will plan for one month monitor. Cocaine abuse (CMD) 02/22/2018 Bee sting 10/21/2015 Ankle cellulitis 10/21/2015 Atypical chest pain 04/29/2015 Ischemic cardiomyopathy 04/29/2015 Assessment & Plan (04/10/2020 1:53 PM LOG DECKMAN): Last echo 01/31/2020 with LVEF 57%. Continue current management. 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 Follow up by Dr. Mayen. Snoring 10/12/2011 Hypersomnolence 10/12/2011 Bronchial asthma (CMD) HTN (hypertension) Assessment & Plan (04/10/2020 1:52 PM LOG DECKMAN): Continue current management. Chronic low back pain Impaired fasting glucose Dyslipidemia Obesity SOB (shortness of breath) on exertion documented as of this encounter (statuses as of 04/05/2024) Resolved Problems Problem Noted Date Diagnosed Date Resolved Date Mood disorder (CMD) 02/21/2023 03/10/20 Moderate depressed bipolar I disorder (CMD) 05/15/2016 03/10/2023 ADD (attention deficit disor hilda) without hyperactivity 05/15/2016 03/10/2023 documented as of this encounter (statuses as of 04/05/2024) Immunizations Name Administration Dates Next Due COVLUL Pfizer 12Y+ (Requires Dilution) 01/17/2021 ,12/27/2020 Influenza, split virus, trivalent 12/29/2006,12/2003,01/16/2003 Tdap 11/06/2008 documented as of this encounter Social History Tobacco Use Types Packs/Day Years Used Date Smoking Tobacco: Every Day Cigarettes 0.6 74 Started: 1982 Smokeless Tobacco: Never Comments:About 4 cigarettes/ day Alcohol Use Standard Drinks/Week Comments No 0 (1 standard drink = 0.6 oz pur e alcohol) less than 3 times/year OASIS D0700: Social Isolation Answer Da te Recorded Frequency of experiencing loneliness or isolatio n Never 04/30/2022 OASIS A1250: Transportation Answer Date Recorded Lack of Transportation (Medical) No 04/30/2022 Lack of Transportation (Non-Medical) No 04/30/2022 Patient Unable or Declines to Respond No 04/30/2022 Utilities Answer Date Recorded In the past 12 months has e [employer] gas, oil, or water [employer] threatened to shut off services in your home? No 02/22/2024 PHQ-2 Answer Date Recorded Initial depression screening score: 3 02/22/2024 PRAPARE - Transportation Answer Date Re corded In the past 12 months, has l ack of transportation kept you from medical appointments or from getting medications? No 01/28 In the past 12 months, has l ack of transportation kept you from meetings, work, or from getting things needed for daily living? No 02/21/2023 Social Connections Answer Date Recorded How often do you see or talk to people that you care about and feel close to? (For example: talking to friends on the phone, visiting friends or family, going to zoroastrianism or club meetings) Patient declined 02/23/2024 Alcohol Use Answer Date Recorded Audit C Total Score 0 02/23/2024 Financial Resource Strain Answer Date R ecorded In the past year, have you o r any family members you live with been unable to get any of the following when it was really needed? Check all that apply. None 02/22/2024 Food Insecurity Answer Date Recorded Within the past 12 months, y ou worried that your food would run out before you got money to buy more. Never true 02/22/2024 Within the past 12 months, t he food you bought just didn't last and you didn't have money to get more. Never true 02/22/2024 Inadequate Housing Answer Date Recorded What is your living situatio n today? I have a steady place to live 02/22/2024 Do you have problems with an y of the following? None of the above 02/22/2024 Interpersonal Safety Answer Date Record ed How often does anyone, sen henderson family and friends, physically hurt you? Never 04/04/2024 How often does anyone, sen henderson family and friends, insult or talk down to you? Never 04/04/2024 How often does anyone, sen hnederson family and friends, threaten you with harm? Never 04/04/2024 How often does anyone, sen henderson family and friends, scream or curse at you? Never 04/04/2024 Transportation Needs Answer Date Record ed In the past 12 months, has l ack of reliable transportation kept you from medical appointments, meetings, work or from getting things needed for daily living? No 02/22/2024 PRAPARE - Transportation Answer Date Re corded In the past 12 months, has l ack of transportation kept you from medical appointments or from getting medications? No 01/28 In the past 12 months, has l ack of transportation kept you from meetings, work, or from getting things needed for daily living? No 02/21/2023 Sex and Gender Information Value Date Recorded Sex Assigned at Not on file Gender Identity Not on file Sexual Orientation Not on file Job Start Date Occupation Industry Not on file Not on file Not on file documented as of this encounter Last Filed Vital Signs Vital Sign Reading Time Taken Comments Blood Pressure 160/90 04/04/2024 10:22 PM LOG DECKMAN Pulse 67 04/04/2024 10:22 PM LOG DECKMAN Temperature 36.4 C (97.5 F) 04/04/2024 6:19 PM LOG DECKMAN Respiratory Rate 18 04/04/2024 10:22 PM LOG DECKMAN Oxygen Saturation 94% 04/04/2024 10:22 PM LOG DECKMAN Inhaled Oxygen Concentration - - Weight - - Height - - Body Mass Index - - documented in this encounter Functional Status Functional Status Response Date of Assess ment RETIRED Are you deaf or do y ou have serious difficulty hearing? No 02/21/2023 RETIRED Are you blind or do you have serious difficulty seeing, even when wearing glasses? No 02/21/2023 Do you have serious difficul ty walking or climbing stairs? No 02/22/2024 Do you have difficulty dressing or bathing? No 02/22/2024 Because of a physical, menta l, or emotional condition, do you have difficulty doing errands alone? No 02/22/2024 Cognitive Status Response Date of Assessm ent Because of a physical, menta l, or emotional condition, do you have serious difficulty concentrating, remembering or making decisions? No 02/22/2024 documented as of this encounter Discharge Instructions * Attachments The following attachments cannot be sent through Care Everywhere. * Chest Pain, Uncertain Cause (Canadian) documented in this encounter ED Notes * Héctor Castillo MD - 04/04/2024 8:20 PM CST Patient : Johnny Garnett Age: [age] year old Sex: male Encounter Date: 04/04/2024 History Chief Complaint Patient presents with Chest Pain Chest Pain Johnny Garnett is a 53 year old presenting to the emergency department three- vessel CABG, PCI on aspirin and Plavix, presents to the emergency department with intermittent chest pain for the last 2 years, has been worsening over the last month. States that the pain to his left chest. Is not associated with exertion or deep inspiration. No leg pain, leg swelling, nausea,. No diaphoresis. He states that the same chest pain that he has been seen for and a few other emergency departments. He sees his manuscript editor tomorrow Extensive chart review in ED course Past/Family/Social History Allergies Allergen Reactions Statins MYALGIA Added per MD notation that he cannot tolerate statins for treatment Pollen No current facility-administered medications for this encounter. Current Outpatient Medications Medication Sig QUEtiapine (SEROquel) 50 MG tablet Take 1 tablet by mouth at bedtime. Indications: Manic-Depression escitalopram (LEXAPRO) 20 MG tablet Take 1 tablet by mouth daily. Indications: Obsessive CompulsiveDisorder ARIPiprazole (ABILIFY) 10 MG tablet Take 1 tablet by mouth daily. Indications: MIXED BIPOLAR AFFECTIVE DISORDER clopidogrel (PLAVIX) 75 MG tablet Take 1 tablet by mouth daily. atorvastatin (LIPITOR) 80 MG tablet Take 80 mg by mouth at bedtime. ezetimibe (ZETIA) 10 MG tablet Take 10 mg by mouth at bedtime. losartan (COZAAR) 50 MG tablet Take 50 mg by mouth daily. ranolazine (RANEXA) 500 MG 12 hr tablet Take 500 mg by mouth in the morning and 500 mg in the evening. albuterol (ProAir HFA) 108 (90 Base) MCG/ACT inhaler Inhale 2 puffs into the lungs every 4 hours asneeded for Shortness of Breath or Wheezing. aspirin (ECOTRIN) 81 MG EC tablet Take 1 tablet by mouth daily. carvedilol (COREG) 12.5 MG tablet Take 1 tablet by mouth every 12 hours. hydroCORTisone (CORTIZONE) 1 % cream Apply topically 2 times daily as needed (rash). spironolactone (ALDACTONE) 25 MG tablet Take 1 tablet by mouth daily. calcium carbonate (TUMS) 500 MG chewable tablet Chew 1 tablet by mouth as needed for Heartburn. Past Medical History: Diagnosis Date ADD (attention deficit disorder) without hyperactivity ADD (attention deficit disorder) without hyperactivity 05/15/2016 Atypical chest pain Bronchial asthma (CMD) Carpal tunnel syndrome on both sides Chronic low back pain Cocaine abuse (CMD) Congestive cardiac failure (CMD) Coronary artery disease involving chitina coronary artery of chitina heart with angina pectoris (CMD) Dyslipidemia Gastroesophageal reflux disease High cholesterol HTN (hypertension) Hypersomnolence Impaired fasting glucose Ischemic cardiomyopathy Moderate depressed bipolar I disorder (CMD) Moderate depressed bipolar I disorder (CMD) 05/15/2016 Mood disorder (CMD) 02/21/2023 Myocardial infarction (CMD) Obesity Obsessive compulsive disorder S/P CABG x 3 04/13/2022 Sleep apnea Not on Cpap Snoring SOB (shortness of breath) on exertion Syncope and collapse Past Surgical History: Procedure Laterality Date Cardiac surgery 04/13/2022 myocardial revascularization Family History Problem Relation Age of Onset Diabetes Mother Dementia/Alzheimers Mother Heart disease Father Early Father Heart disease Paternal Grandfather Early Paternal Grandfather Social History Tobacco Use Smoking status: Every Day Current packs/day: 0.25 Average packs/day: 0.6 packs/day for 74.0 years (41.0 ttl pk-yrs) Types: Cigarettes Start date: 1980 Smokeless tobacco: Never Tobacco comments: About 4 cigarettes/day Vaping Use Vaping status: never used Substance Use Topics Alcohol use: No Alcohol/week: 0.0 standard drinks of alcohol Comment: less than 3 times/year Drug use: Not Currently Frequency: 1.0 times per week Types: Cocaine Comment: last use Feb Review of Systems Review of Symptoms Review of Systems Cardiovascular: Positive for chest pain. Physical Exam Physical Exam ED Triage Vitals [04/04/241818] ED Triage Vitals Group Temp 97.5 ??F (36.4 ??C) Heart Rate 88 Resp 18 BP (!) 194/93 SpO2 99 % EtCO2 mmHg Height Weight Weight Scale Used BMI (Calculated) IBW/kg (Calculated) Physical Exam Vitals and nursing note reviewed. Constitutional: General: He is not in acute distress. Appearance: He is not ill-appearing. HENT: Head: Normocephalic and atraumatic. Mouth/Throat: Mouth: Mucous membranes are moist. Eyes: Conjunctiva/sclera: Conjunctivae normal. Cardiovascular: Rate and Rhythm: Normal rate and regular rhythm. Pulmonary: Effort: Pulmonary effort is normal. Breath sounds: Normal breath sounds. Abdominal: General: There is no distension. Palpations: Abdomen is soft. Tenderness: There is no abdominal tenderness. Musculoskeletal: Cervical back: Neck supple. Right lower leg: No edema. Left lower leg: No edema. Skin: General: Skin is warm and dry. Neurological: Mental Status: He is alert. Procedures ED Procedures Procedures Lab Results ED Lab Results for orders placed or performed during the hospital encounter of 04/04/24 Basic Metabolic Panel Specimen: Blood, Venous Result Value Ref Range Fasting Status Sodium 141 135 - 145 mmol/L Potassium 4.1 3.4 - 5.1 mmol/L Chloride 110 97 - 110 mmol/L Carbon Dioxide 28 21 - 32 mmol/L Anion Gap 7 7 - 19 mmol/L Glucose 101 (H) 70 - 99 mg/dL BUN 26 (H) 6 - 20 mg/dL Creatinine 0.74 0.67 - 1.17 mg/dL Glomerular Filtration Rate >90 >=60 BUN/Cr 35 (H) 7 - 25 Calcium 10.2 8.4 - 10.2 mg/dL TROPONIN I, HIGH SENSITIVITY Specimen: Blood, Venous Result Value Ref Range Troponin I, High Sensitivity 24 <77 ng/L CBC with Automated Differential (performable only) Specimen: Blood, Venous Result Value Ref Range WBC 8.6 4.2 - 11.0 K/mcL RBC 5.49 4.50 - 5.90 mil/mcL HGB 14.9 13.0 - 17.0 g/dL HCT 46.3 39.0 - 51.0 % MCV 84.3 78.0 - 100.0 fl MCH 27.1 26.0 - 34.0 pg MCHC 32.2 32.0 - 36.5 g/dL RDW-CV 13.2 11.0 - 15.0 % RDW-SD 40.1 39.0 - 50.0 fL PLT 292 140 - 450 K/mcL NRBC 0 <=0 /100 WBC Neutrophil, Percent 54 % Lymphocytes, Percent 33 % [place], Percent 9 % Eosinophils, Percent 2 % Basophils, Percent 1 % Immature Granulocytes 1 % Absolute Neutrophils 4.6 1.8 - 7.7 K/mcL Absolute Lymphocytes 2.9 1.0 - 4.0 K/mcL Absolute Monocytes 0.8 0.3 - 0.9 K/mcL Absolute Eosinophils 0.2 0.0 - 0.5 K/mcL Absolute Basophils 0.1 0.0 - 0.3 K/mcL Absolute Immature Granulocytes 0.1 0.0 - 0.2 K/mcL EKG [place] EKG report Results for orders placed or performed during the hospital encounter of 04/04/24 Electrocardiogram 12-Lead Result Value Ref Range Ventricular Rate EKG/Min (BPM) 77 Atrial Rate (BPM) 77 NC-Interval (MSEC) 138 QRS-Interval (MSEC) 84 QT-Interval (MSEC) 382 QTc 432 P [place] (Degrees) 52 R [place] (Degrees) 17 T [place] (Degrees) 75 REPORT TEXT Sinus rhythm with premature atrial complexes Abnormal ECG When compared with ECG of 01-APR-2024 00:47, premature atrial complexes are now present Confirmed by JONATHAN BLAKE, HÉCTOR ([id number]) on 04/04/2024 9:54:42 PM I have personally reviewed and independently interpreted the EKG: NSR at 77. No ST elevations or depressions. Overall similar to prior EKG. Radiology Results ED Radiology Results Imaging Results XR CHEST AP OR PA (Final result) Result time 04/04/24 21:40:25 Final result Impression: IMPRESSION: No acute cardiopulmonary disease. Electronically Signed by: Ernesto Silva MD Signed on: 04/04/2024 9:40 PM Created on Workstation ID: [id number] Signed on Workstation ID: [id number] Narrative: EXAM: XR CHEST AP OR PA CLINICAL INDICATION: Chest pain. COMPARISON: Chest radiograph on 03/31/2024. TECHNIQUE: PA upright view of the chest. FINDINGS: Changes of median sternotomy and coronary bypass surgery are again seen .The cardiomediastinal silhouette appears to be within normal limits. The pulmonary vasculature is normally distributed. The lungs and pleural spaces are clear. ED Medications ED Medications Medications aspirin chewable 243 mg (243 mg Oral Given 04/04/242034) acetaminophen (TYLENOL) tablet 1,000 mg (1,000 mg Oral Given 04/04/242034) ED Course Vitals: 04/04/24 1819 04/04/24 1952 04/04/24 2200 BP: (!) 194/93 (!) 178/103 (!) 177/91 BP Location: LUE - Left upper extremity Patient Position: Sitting Pulse: 88 (!) 55 64 Resp: 18 18 18 Temp: 97.5 ??F (36.4 ??C) TempSrc: Oral SpO2: 99% 96% 96% ED Course as of 04/04/242207Apr 04, 20242024 Hospital Course Mr. Garnett is 53-year-old male with past medical history of CAD status post CABG, hypertension and hyperlipidemia is admitted with complaints of chest pain. Initial lab workup was unremarkable and troponins are negative. During the admission, patient was monitored on telemetry. Cardiology was consulted who evaluated the patient and stress test was done which showed large area of ischemia and he was started on IV heparin drip. He underwent cardiac catheterization which showed LAD proximal stenosis and he underwent staged PCI with drug-eluting stent. He tolerated the procedure well and did not have any complications. Echo showed EF of 61% and no abnormalities was noted. He had improvement in his symptoms and remained hemodynamically stable. Hence he is discharged in to home on cardiac medications were optimized. External chart review: discharge summary reviewed above on 12/2023 [EG] 2147 External chart review and outside emergency department visit: Seen on April 01 a troponin of 20, 17. D-dimer was negative. Seen on 03/24/2024 had 2 negative troponins Negative D-dimer in 03/18/2024 Negative troponin on 03/15 [EG] 2148 YOCARDIAL PERFUSION SCAN CLINICAL HISTORY: Chest pain. COMPARISON: None available TECHNIQUE: Stress and rest SPECT images were obtained. 11.0 mCi of Tc99m Myoview was utilized at rest; 33.0 mCi of Tc99m Myoview was utilized for stress imaging.The images were reviewed on [facility]. Glowpointiscan was utilized for the stress portion of the examination. FINDINGS: Review of stress and rest SPECT images reveals no reversible perfusion defect. Diminished counts is noted in the anteroseptal region and apex on both sets of images, more pronounced on rest imaging, likely related to soft tissue attenuation. Gated images demonstrate normal wall motion with an estimated left ventricular ejectio n fraction of 39%. No transient ischemic dilatation of the left ventricle is noted. 1. No evidence of stress-induced myocardial ischemia. 2. Normal wall motion with left ventricular ejection fraction of 39%. Please correlate with echocardiogram. Stress test on 03/10/24 [EG] 2149 Left Ventricle: The left ventricle is of normal size. There is moderately increased concentricwall thickness. The left ventricular ejection fraction is estimated to be in the normal range at 65%. Right Ventricle: The right ventricle is not well visualized. Pericardium: There is no pericardialeffusion. LVIDd: 4.9 cm LVIDs: 2.9 cm IVSd: 1.50 cm LVPWd: 1.46 cm Other Measurements & Calculat ions LV EF Biplane: 57.6 % ECHO on 03/12/24 [EG] 2149 I have independently interpreted the Chest X-Ray and have found no obvious pneumothorax or focal opacity. I am awaiting on the final radiology read. [EG] ED Course User Index [EG] Héctor Castillo MD Independent Review Completed in ED course Consults none Medical Decision Making MDM: 53-year-old male with known CAD, however multiple recent reassuring ED workups including negative serial troponins during active chest pain, negative stress test 1 month ago, patient does have follow-up with his manuscript editor at 9 AM tomorrow. His vitals are overall reassuring. Patient does have obvious risk factors for developing ACS, and thus will obtain EKG and troponin, as well as basic labs. Will also rule out pneumothorax or lung pathology with chest x-ray. I considered pulmonary embolism, however there is no evidence of DVT on exam, no tachycardia, no hypoxia, no pleuritic chest pain, has had multiple negative dimer's within the last week. Will treat with aspirin and Tylenol. EKGunchanged. Troponin negative, given current symptoms been ongoing for more than 4 hours, will not require further troponin testing. Overall low suspicion for ACS at this time, patient has excellent follow-up tomorrow morning. Patient will be discharged Does the patient have sepsis: NO Critical Care No Critical Care Disposition Clinical Impression and Diagnosis 10:11 PM ED Diagnosis Diagnosis Comment Associated Orders Final diagnosis Chest pain in adult -- -- Follow Up: Bal Mayen MD [address] [facility] [id number] Go to your scheduled appointment tomorrow at 9am Summary of your Discharge Medications You have not been prescribed any medications. Pt is discharged to home/self care in stable condition. Discharge 04/04/2024 10:07 PM Johnny Garnett discharge to home/self care. Héctor Castillo MD 04/04/24 [id number] DECKMAN * Gavin Balderas RN - 04/04/2024 6:10 PM CST Pt comes to the ED with a CC of CP. Pt rate the pain a 9/10 that comes and goes. 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 No medications TABLE SETTER. DECKMAN documented in this encounter Plan of Treatment Upcoming Encounters Date Type Department Care Team (Late st Contact Info) Description 04/05/2024 9:00 AM LOG DECKMAN [facility] [address] [place] [address] Bal Mayen MD [address] [address] 05/03/2024 4:00 PM LOG DECKMAN Office [facility] [address] [address] Hayden Carver, DO [address] [place] [address] Bal Mayen MD [address] [address] Pending Results Name Type Priority Associated Diagnoses Date /Time Extra Tubes Lab Routine 04/04/2024 8: 54 PM LOG DECKMAN Light Blue Top Lab Routine 04/04/2024 8:54 PM LOG DECKMAN Gold Top Lab Routine 04/04/2024 8:5 4 PM LOG DECKMAN Scheduled Orders Name Type Priority Associated Diagnoses Orde r Schedule Extra Tubes Lab Routine Once Routine for 1 Occurrences starting 04/04/2024 until 04/04/2024 Light Blue Top Lab Routine Once for 1 Occurrences starting 04/04/2024 until 04/04/2024 Gold Top Lab Routine Once for 1 Occ urrences starting 04/04/2024 until 04/04/2024 Health Maintenance Due Date Last Done Comments Pneumococcal Vaccine 0-64 (1 of 2 - PCV) 1974 Hepatitis B Vaccine (1 of 3 - 19+ 3-dose series) 10/04/1987 CT Colonography 2013 Cologuard 2013 Colonoscopy 2013 Colorectal Cancer Screen 2013 Fecal Occult Blood 2013 Sigmoidoscopy 2013 Lung Cancer Screening 2018 Shingles Vaccine (1 of 2) 2018 DTaP/Tdap/Td Vaccine (2 - Td or Tdap) 11/06/2018 11/06/2008 COVID-19 Vaccine (3 - 2023-2 5 season) 2023 01/17/2021, 12/27/2020 Influenza Vaccine (#1) 2023 7, 02/06/2004, 01/16/2003 HPV Vaccine Aged Out No longer eligi ble based on patient's age to complete this topic Meningococcal Vaccine Aged Out No olga bebeto eligible based on patient's age to complete this topic documented as of this encounter Goals Goal Patient Goal Type Associated Problems Recent Progress Patient-Stated? Author Advance Directives General Yes Abbey Castano, DUMPMAN Note: Honoring Choices document sent 02/03 documented as of this encounter Medical Devices Implanted Type Area Dietary Services Manager Device Identifier Shelf Expiration Date Model / Serial / Lot [place] Cv 1x1in Thk1.65mm Ptfe Patch Strl Lf - S. Implanted:Qty: 1 on 04/13/2022 by Javon Marquis MD at [facility] Graft N/A: Chest BD [employer] [id number] 11/23/2026 [id number] / . / [id number] Clip Internal Sm Wide Ligate Horizon Ti - S. Implanted:Qty: 3 on 04/13/2022 by Javon Marquis MD at [facility] Other Implant N/A: Chest [employer] [id number] 10/27/2026 [id number] / . / [id number] Sponge Abs [id number] 12.5x8cm Porcine Geltn Strl Disp Surgfm - S. Implanted:Qty: 1 on 04/13/2022 by Javon Marquis MD at [facility] Other Implant N/A: Chest [employer] [id number] 11/03/2025 1974 / . / [id number] Clip Internal Med Chevron 24 Crtdg Ligate Triangulate Xsect - S. Implanted:Qty: 1 on 04/13/2022 by Javon Marquis MD at [facility] Other Implant N/A: Chest [employer] [id number] 11/23/2026 [id number] / . / [id number] Stent Resolute Intgr Microtrac 3.5mm 22mm - [id number] Implanted:Qty: 1 on 09/30/2014 by Bal Myaen MD at [facility] Stent Left Anterior Descending Artery [employer] . 07/04/2016 [id number] / / [id number] Description:Implant manufact urer/size/type and expiration date verified by proceduralist and procedure staff. Verification initials:cd/jk documented as of this encounter Procedures Procedure Name Priority Date/Time Associated Diagnosis Comments XR CHEST AP OR PA STAT 04/04/2024 9:3 5 PM LOG [facility] TROPONIN I, HIGH SENSITIVITY STAT 04/04/2024 8:49 PM LOG DECKMAN CBC WITH DIFFERENTIAL STAT 04/04/2024 8:49 PM LOG DECKMAN CBC WITH AUTOMATED DIFFERENTIAL (PERFORMABLE ONLY) STAT 04/04/2024 8:49 PM LOG DECKMAN BASIC METABOLIC PANEL STAT 04/04/2024 8:49 PM LOG DECKMAN ELECTROCARDIOGRAM 12-LEAD STAT 2024 6:19 PM LOG DECKMAN documented in this encounter Results * XR CHEST AP OR PA (04/04/2024 9:35 PM LOG DECKMAN) Anatomical Region Laterality Modality Chest/Thorax N/A Digital Radiogra phy 04/04/2024 9:39 PM LOG DECKMAN Impressions 04/04/2024 9:40 PM LOG DECKMAN IMPRESSION: No acute cardiopulmonary disease. Electronically Signed by: Ernesto Silva MD Signed on: 04/04/2024 9:40 PM Created on Workstation ID: [id number] Signed on Workstation ID: [id number] Narrative 04/04/2024 9:40 PM LOG DECKMAN EXAM: XR CHEST AP OR PA CLINICAL INDICATION: Chest pain. COMPARISON: Chest radiograph on 03/31/2024. TECHNIQUE: PA upright view of the chest. FINDINGS: Changes of median sternotomy and coronary bypass surgery are again seen .The cardiomediastinal silhouette appears to be within normal limits. The pulmonary vasculature is normally distributed. The lungs and pleural spaces are clear. Procedure Note Ernesto Silva MD - 04/04/2024 EXAM: XR CHEST AP OR PA CLINICAL INDICATION: Chest pain. COMPARISON: Chest radiograph on 03/31/2024. TECHNIQUE: PA upright view of the chest. FINDINGS: Changes of median sternotomy and coronary bypass surgery are again seen .The cardiomediastinal silhouette appears to be within normal limits.The pulmonary vasculature is normally distributed. The lungs and pleuralspaces are clear. IMPRESSION: No acute cardiopulmonary disease. Electronically Signed by: Ernesto Silva MD Signed on: 04/04/2024 9:40 PM Created on Workstation ID: [id number] Signed on Workstation ID: [id number] Héctor Castillo MD IMG XR PROCEDURES * CBC with Automated Differential (performable only) (04/04/2024 8:49 PM LOG DECKMAN) WBC 8.6 4.2 - 11.0 K/mcL 04/04/2024 9:00 PM [facility] RBC 5.49 4.50 - 5.90 mil/mcL 04/04/2024 9:00 PM [facility] HGB 14.9 13.0 - 17.0 g/dL 04/04/2024 9:00 PM [facility] HCT 46.3 39.0 - 51.0 % 04/04/2024 9:00 PM [facility] MCV 84.3 78.0 - 100.0 fl 04/04/2024 9:00 PM [facility] MCH 27.1 26.0 - 34.0 pg 04/04/2024 9:00 PM [facility] MCHC 32.2 32.0 - 36.5 g/dL 04/04/2024 9:00 PM [facility] RDW-CV 13.2 11.0 - 15.0 % 04/04/2024 9:00 PM [facility] RDW-SD 40.1 39.0 - 50.0 fL 04/04/2024 9:00 PM [facility] PLT 292 140 - 450 K/mcL 04/04/2024 9:00 PM [facility] NRBC 0 <=0 /100 WBC 04/04/2024 9:00 PM [facility] Neutrophil, Percent 54 % 04/04/2024 9:00 PM [facility] Lymphocytes, Percent 33 % 04/04/2024 9:00 PM [facility] [place], Percent 9 % 04/04/2024 9:00 PM [facility] Eosinophils, Percent 2 % 04/04/2024 9:00 PM [facility] Basophils, Percent 1 % 04/04/2024 9:00 PM [facility] Immature Granulocytes 1 % 04/04/2024 9:00 PM [facility] Absolute Neutrophils 4.6 1.8 - 7.7 K/mcL 04/04/2024 9:00 PM [facility] Absolute Lymphocytes 2.9 1.0 - 4.0 K/mcL 04/04/2024 9:00 PM [facility] Absolute Monocytes 0.8 0.3 - 0.9 K/mcL 04/04/2024 9:00 PM [facility] Absolute Eosinophils 0.2 0.0 - 0.5 K/mcL 04/04/2024 9:00 PM [facility] Absolute Basophils 0.1 0.0 - 0.3 K/mcL 04/04/2024 9:00 PM [facility] Absolute Immature Granulocytes 0.1 0.0 - 0.2 K/mcL 04/04/2024 9:00 PM [facility] Blood VENOUS BLOOD SPECIMEN / Unknown Venipuncture / Unknown 04/04/2024 8:49 PM LOG DECKMAN 04/04/2024 8:53 PM LOG DECKMAN Héctor Castillo MD BKR LAB BLOOD ORDERA BLES Performing Organization Address City/State/[facility] Co de Phone Number [facility] [address] [place] [id number] * TROPONIN I, HIGH SENSITIVITY (04/04/2024 8:49 PM LOG DECKMAN) Pathologist [facility] Troponin I, High Sensitivity 24 <77 ng/L 04/04/2024 9:18 PM [facility] Blood VENOUS BLOOD SPECIMEN / Unknown Venipuncture / Unknown 04/04/2024 8:49 PM LOG DECKMAN 04/04/2024 8:53 PM LOG DECKMAN Héctor Castillo MD BKR LAB BLOOD ORDERA BLES [address] [address] * (ABNORMAL) Basic Metabolic Panel (04/04/2024 8:49 PM LOG DECKMAN) Pathologist [facility] Fasting Status 04/04/2024 9:18 PM [facility] Sodium 141 135 - 145 mmol/L 04/04/2024 9:18 PM [facility] Potassium 4.1 3.4 - 5.1 mmol/L 04/04/2024 9:18 PM [facility] Chloride 110 97 - 110 mmol/L 04/04/2024 9:18 PM [facility] Carbon Dioxide 28 21 - 32 mmol/L 04/04/2024 9:18 PM [facility] Anion Gap 7 7 - 19 mmol/L 04/04/2024 9:18 PM [facility] Glucose 101(H) 70 - 99 mg/dL 04/04/2024 9:18 PM [facility] BUN 26(H) 6 - 20 mg/dL 04/04/2024 9:18 PM [facility] Creatinine 0.74 0.67 - 1.17 mg/dL 04/04/2024 9:18 PM [facility] Glomerular Filtration Rate >90 >=60 04/04/2024 9:18 PM [facility] Comment:eGFR results = or >6 0 mL/min/1.73m2 = Normal kidney function. Estimated GFR calculated using the CKD-EPI-R (2020) equation that does not include race in the creatinine calculation. BUN/Cr 35(H) 7 - 25 04/04/2024 9:18 PM LOG DECKMAN [facility] Calcium 10.2 8.4 - 10.2 mg/dL 04/04/2024 9:18 PM LOG DECKMAN [facility] Blood VENOUS BLOOD SPECIMEN / Unknown Venipuncture / Unknown 04/04/2024 8:49 PM LOG DECKMAN 04/04/2024 8:53 PM LOG DECKMAN Héctor Castillo MD BKR LAB BLOOD ORDERA BLES [facility] [address] [place] [id number] * Electrocardiogram 12-Lead (04/04/2024 6:19 PM LOG DECKMAN) Ventricular Rate EKG/Min (BPM) 77 MUSE Atrial Rate (BPM) 77 MUSE NC-Interval (MSEC) 138 MUSE QRS-Interval (MSEC) 84 MUSE QT-Interval (MSEC) 382 MUSE QTc 432 MUSE P [place] (Degrees) 52 MUSE R [place] (Degrees) 17 MUSE T [place] (Degrees) 75 MUSE REPORT TEXT Sinus rhythm with premature atrial complexes Abnormal ECG When compared with ECG of 01-APR-2024 00:47, premature atrial complexes are now present Confirmed by HÉCTOR CASTILLO MD ([id number]) on 04/04/2024 9:54:42 PM MUSE 04/04/2024 6:19 PM LOG DECKMAN Héctor Castillo MD ECG ORDERABLES MUSE documented in this encounter Visit Diagnoses Diagnosis Syncope and collapse- Primary Chest pain in adult- Primary documented in this encounter Administered Medications Inactive Administered Medications - up to 1 most recent administrations Medication Order MAR Action Action Date Dose Rate Site acetaminophen (TYLENOL) tablet 1,000 mg 1,000 mg ONCE, Oral, On Wed04/04/24 at 2027, For 1 dose, Maximum of 4,000 mg acetaminophen per 24 hours from ALL sources. Given 04/04/2024 8:35 PM LOG DECKMAN 1,000 mg aspirin chewable 243 mg 243 mg ONCE, Oral, On Wed04/04/24 at 2027, For 1 dose Given 04/04/2024 8:35 PM LOG DECKMAN 243 mg documented in this encounter Active and Recently Administered Medications Times are shown in LOG DECKMAN. Scheduled Medication Order 04/02/2024 04/03/2024 04/04/2024 acetaminophen (TYLENOL) tablet 1,000 mg (COMPLETED) 1,000 mg ONCE, Oral, On Wed04/04/24 at 2027, For 1 dose, Maximum of 4,000 mg acetaminophen per 24 hours from ALL sources. 2034 (Given - Provid er: Isabel Schuster RN) aspirin chewable 243 mg (COMPLETED) 243 mg ONCE, Oral, On Wed04/04/24 at 2027, For 1 dose 2034 (Given - Provid er: Isabel Schuster RN) documented in this encounter Additional Health Concerns Assessment Noted Time PHQ-9 Depression Total Score: 17 024 8:08 PM LOG DECKMAN documented as of this encounter Advance Directives Documents on File Type Date Recorded Patient Automated Teller Manager Expl anation [id number] 02/28/2024 3:12 PM * Full Resuscitation (Latest Code Status on File) Date Activated Date Inactivated Comments 02/22/2024 5:53 PM 02/24/2024 4:20 PM * Full Resuscitation Date Activated Date Inactivated Comments 02/20/2023 11:57 PM 02/26/2023 2:08 PM * Full Resuscitation Date Activated Date Inactivated Comments 02/17/2023 9:03 PM 02/18/2023 7:04 PM * Full Resuscitation Date Activated Date Inactivated Comments 12/17/2022 9:22 PM 12/22/2022 1:45 PM * Full Resuscitation Date Activated Date Inactivated Comments 04/25/2022 5:25 PM 04/27/2022 7:29 PM Healthcare Agents on File Name Relationship Healthcare Agent Gloria Garnett Daughter Health Care Agent Care Teams Manuscript Editor Relationship Specialty Start Date End Date Christy Gonzalez MD [address] [address] PCP - General Internal Medicine 12/21/22 Abbey Castano, DUMPMAN Vice President Of Software Engineering - Population Health Social Work 01/28/24 documented as of this encounter
--- OUTSIDE RECORDS SUMMARY | 2024-04-09 16:16 | XMS_ITS | Summary of Care ---
Author Organization [facility] Address [address] [place] [address] Care Team Providers Care Legal Receptionist Name Role Phone Christy Gonzalez MD Primary Care Provider [phone] Abbey Castano FAMILY WELFARE SOCIAL WORK PROFESSOR Unavailable Unavailable Reason for Referral * Consult & Treatment (Routine) - Authorized Specialty Diagnoses / Procedures Referred By Conthyacinth t Referred To Contact Diagnoses Nonspecific chest pain Hayden Carver DO [address] [place] [address] Referral ID Status Reason Start Date Expiration Date V isits Requested Visits Authorized [id number] Authorized 04/01/2024 04/01/2025 1 1 Question Answer Indicate Service Requested Consult Specialty: General Cardiology Comments Seen in ER for chest pain, able to be discharged. Looking to arrange follow up LLER Reason for Visit * Reason Comments Chest Pain Encounter Details Date Type Department Care Team (Late st Contact Info) Description 03/31/2024 9:12 PM ENROLLER - 04/01/2024 2:12 AM ENROLLER Emergency [facility] Emergency Services [address] [place] [id number] Hayden Carver DO [address], [place] [id number] Braunschweig, Bekah N, RN Nonspecific chest pain (Primary Dx) Discharge Disposition: Home or Self Care Allergies Active Allergy Reactions Criticality Noted Date Comments Pollen Low 07/06/2011 Statins MYALGIA Medium 09/10/2015 Added per MD notation that he cannot tolerate statins for treatment documented as of this encounter (statuses as of 04/01/2024) Medications Medication Sig Dispensed Refills Start Date [...] as of this encounter (statuses as of 04/01/2024) Active Problems Problem Noted Date Diagnosed Date History of attention deficit hyperactivity disor hilda (ADHD) 03/10/2023 Bipolar disorder, curr episo de mixed, severe, with psychotic features (CMD) 03/10/2023 Chest pain, unspecified type 02/17/2023 Hypertensive urgency 12/17/2022 Pleural effusion, bilateral 04/25/2022 S/P CABG x 3 04/13/2022 ACS (acute coronary syndrome) (CMD) 04/10/2022 Syncope and collapse 04/10/2020 Assessment & Plan (04/10/2020 1:59 PM ENROLLER): He had 3 episodes of syncope in [...] 04/29/2015 Assessment & Plan (04/10/2020 1:53 PM ENROLLER): Last echo 01/31/2020 with LVEF 57%. Continue current management. 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 Follow up by Dr. Mayen. Snoring 10/12/2011 Hypersomnolence 10/12/2011 Bronchial asthma (CMD) HTN (hypertension) Assessment & Plan (04/10/2020 1:52 PM ENROLLER): Continue current management. Chronic low back pain Impaired fasting glucose Dyslipidemia Obesity SOB (shortness of breath) on exertion documented as of this encounter (statuses as of 04/01/2024) Resolved Problems Problem Noted Date Diagnosed Date Resolved Date Mood disorder (CMD) 02/21/2023 03/10/20 Moderate depressed bipolar I disorder (CMD) 05/15/2016 03/10/2023 ADD (attention deficit disor hilda) without hyperactivity 05/15/2016 03/10/2023 documented as of this encounter (statuses as of 04/01/2024) Immunizations Name Administration Dates Next Due COVID Pfizer 12Y+ (Requires Dilution) 01/17/2021 ,12/27/2020 Influenza, [...] In the past 12 months has e [employer], gas, oil, or water company threatened to [...] phone, visiting friends or family, going to methodist or club meetings) Patient declined 02/23/2024 Alcohol [...] Date Record ed How often does anyone, robiraquel santiago family and friends, physically hurt you? Never 03/31/2024 How often does anyone, sen henderson family and friends, insult or talk down to you? Never 03/31/2024 How often does anyone, robiraquel santiago family and friends, threaten you with harm? Never 03/31/2024 How often does anyone, robiraquel henderson family and friends, scream or curse at you? Never 03/31/2024 Transportation Needs Answer Date Record ed In [...] Sign Reading Time Taken Comments Blood Pressure 184/112 04/01/2024 2:00 AM ENROLLER Pulse 82 04/01/2024 2:00 AM ENROLLER Temperature 36.2 C (97.2 F) 03/31/2024 9:17 PM ENROLLER Respiratory Rate 20 04/01/2024 1:58 AM ENROLLER Oxygen Saturation 98% 04/01/2024 2:00 AM ENROLLER Inhaled Oxygen Concentration - - Weight 112.8 kg (248 lb 10.9 oz) 03/31/2024 9:17 PM ENROLLER Height 177.8 cm (5' 10) 03/31/2024 9:17 PM ENROLLER Body Mass Index 35.68 03/31/2024 9:17 PM ENROLLER documented in this encounter Functional Status Functional [...] sent through Care Everywhere. * Chest Pain, Noncardiac (Israeli) documented in this encounter ED Notes * Bekah Cortes RN - 03/31/2024 9:13 PM CST Pt arrives via private vehicle with c/o chest pain that has been going on for the past 2 weeks. Pt states the chest pain feels light a tightness that is just not going away. Pt states he had a stent placed back in December. Pt states his blood pressure has been high and took 2 of his blood pressure medication this morning but has not taken his dose tonight. LLER documented in this encounter Plan of Treatment Pending Results Name Type Priority Associated Diagnoses Date /Time Bertha Draw Light Blue Top Collected? 1 Label; Red Top Collected? No Labels; Light Green Top Collected? 1 Label; Lavender Top Collected? 1 Label; Gold Top Collected? 1 Label; [place] Top Collected? No Labels; Bae Top Collected? No Labels Lab STAT 025 10:44 PM ENROLLER Light Green Top Lab STAT 10:44 PM ENROLLER Extra Tubes Lab Routine 03/31/2024 10 :51 PM ENROLLER Gold Top Lab Routine 03/31/2024 10: 51 PM ENROLLER Bae Top Tube Lab Routine 03/31/2024 10:51 PM ENROLLER Scheduled Orders Name Type Priority Associated Diagnoses Orde r Schedule Bertha Draw Light Blue Top Collected? 1 Label; Red Top Collected? No Labels; Light Green Top Collected? 1 Label; Lavender Top Collected? 1 Label; Gold Top Collected? 1 Label; [place] Top Collected? No Labels; Bae Top Collected? No Labels Lab STAT Once Routin e for 1 Occurrences starting 03/31/2024 until 03/31/2024 Light Green Top Lab Routine Once for 1 Occurrences starting 03/31/2024 until 03/31/2024 Extra Tubes Lab Routine Once Routine for 1 Occurrences starting 03/31/2024 until 03/31/2024 Gold Top Lab Routine Once for 1 Occ urrences starting 03/31/2024 until 03/31/2024 Bae Top Tube Lab Routine Once for 1 Occurrences starting 03/31/2024 until 03/31/2024 Scheduled Referrals Name Type Priority Associated Diagnoses Orde r Schedule SERVICE TO CARDIOLOGY Referral Routine Nonspecific chest pain Ordered: 04/01/2024 Health Maintenance Due Date Last Done Comments [...] this topic Meningococcal Vaccine Aged Out No loga bebeto eligible based on patient's age to complete this topic documented as of this encounter Goals Goal Patient Goal Type Associated Problems Recent Progress Patient-Stated? Author Advance Directives General Yes Abbey Castano, FAMILY WELFARE SOCIAL WORK PROFESSOR Note: Honoring Autoniq document sent 02/03 documented as of this encounter Medical Devices Implanted Type Area Film Developer Device Identifier Shelf Expiration Date Model / Serial / Lot [place] Cv 1x1in Thk1.65mm Ptfe Patch Strl Lf - S. Implanted:Qty: 1 on 04/13/2022 by Javon Marquis MD at [facility] Graft N/A: Chest BD [employer] [id number] 11/23/2026 [id number] / . / [id number] Clip Internal Sm Wide Ligate Horizon Ti - S. Implanted:Qty: 3 on 04/13/2022 by Javon Marquis MD at [facility] Other Implant N/A: Chest [employer] [id number] 10/27/2026 [id number] / . / [id number] Sponge Abs [id number] 12.5x8cm Porcine Geltn Strl Disp Surgfm - S. Implanted:Qty: 1 on 04/13/2022 by Javon Marquis MD at [facility] Other Implant N/A: Chest [employer] [id number] 11/03/2025 1974 / . / [id number] Clip Internal Med Chevron 24 Crtdg Ligate Triangulate Xsect - S. Implanted:Qty: 1 on 04/13/2022 by Javon Marquis MD at [facility] Other Implant N/A: Chest [employer] [id number] 11/23/2026 [id number] / . / [id number] Stent Resolute Intgr Microtrac 3.5mm 22mm - [id number] Implanted:Qty: 1 on 09/30/2014 by Bal Mayen MD at [facility] Stent Left Anterior Descending Artery [employer] . 07/04/2016 [id number] / / [id number] Description:Implant manufact urer/size/type and expiration date verified by proceduralist and procedure staff. Verification initials:cd/jk documented as of this encounter Procedures Procedure Name Priority Date/Time Associated Diagnosis Comments TROPONIN I, HIGH SENSITIVITY STAT 04/01/2024 12:56 AM ENROLLER TROPONIN I, HIGH SENSITIVITY STAT 03/31/2024 10:44 PM ENROLLER CBC WITH DIFFERENTIAL STAT 03/31/2024 10:44 PM ENROLLER CBC WITH AUTOMATED DIFFERENTIAL (PERFORMABLE ONLY) STAT 03/31/2024 10:44 PM ENROLLER PARTIAL THROMBOPLASTIN TIME STAT 03/31/2024 10:44 PM ENROLLER PROTHROMBIN TIME (INR/PT) STAT 03/31/2024 10:44 PM ENROLLER D DIMER, QUANTITATIVE STAT 03/31/2024 10:44 PM ENROLLER LIPASE STAT 03/31/2024 10:44 PM ENROLLER COMPREHENSIVE METABOLIC PANEL STAT 03/31/2024 10:44 PM ENROLLER XR CHEST AP OR PA STAT 03/31/2024 9:5 7 PM ENROLLER documented in this encounter Results * TROPONIN I, HIGH SENSITIVITY (04/01/2024 12:56 AM ENROLLER) Pathologist [facility] Troponin I, High Sensitivity 17 <77 ng/L 04/01/2024 1:23 AM [facility][NOTE 3] Blood VENOUS BLOOD SPECIMEN / Unknown Venipuncture / Unknown 04/01/2024 12:56 AM ENROLLER 04/01/2024 12:58 AM ENROLLER Hayedn Carver DO BKR LAB BLOOD ORDERA BLES Performing Organization Address City/State/[facility] Co de Phone Number [facility] [address] [place] [address] * (ABNORMAL) CBC with Automated Differential (performable only) (03/31/2024 10:44 PM ENROLLER) [facility] WBC 9.2 4.2 - 11.0 K/mcL 03/31/2024 10:52 PM [facility][NOTE 3] RBC 5.49 4.50 - 5.90 mil/mcL 03/31/2024 10:52 PM [facility][NOTE 3] HGB 15.2 13.0 - 17.0 g/dL 03/31/2024 10:52 PM [facility][NOTE 3] HCT 45.9 39.0 - 51.0 % 03/31/2024 10:52 PM [facility][NOTE 3] MCV 83.6 78.0 - 100.0 fl 03/31/2024 10:52 PM [facility][NOTE 3] MCH 27.7 26.0 - 34.0 pg 03/31/2024 10:52 PM [facility][NOTE 3] MCHC 33.1 32.0 - 36.5 g/dL 03/31/2024 10:52 PM [facility][NOTE 3] RDW-CV 12.9 11.0 - 15.0 % 03/31/2024 10:52 PM [facility][NOTE 3] RDW-SD 38.7(L) 39.0 - 50.0 fL 03/31/2024 10:52 PM [facility][NOTE 3] PLT 361 140 - 450 K/mcL 03/31/2024 10:52 PM [facility][NOTE 3] NRBC 0 <=0 /100 WBC 03/31/2024 10:52 PM [facility][NOTE 3] Neutrophil, Percent 57 % 03/31/2024 10:52 PM [facility][NOTE 3] Lymphocytes, Percent 30 % 03/31/2024 10:52 PM [facility][NOTE 3] [place], Percent 8 % 03/31/2024 10:52 PM [facility][NOTE 3] Eosinophils, Percent 3 % 03/31/2024 10:52 PM [facility][NOTE 3] Basophils, Percent 1 % 03/31/2024 10:52 PM [facility][NOTE 3] Immature Granulocytes 1 % 03/31/2024 10:52 PM [facility][NOTE 3] Absolute Neutrophils 5.4 1.8 - 7.7 K/mcL 03/31/2024 10:52 PM [facility][NOTE 3] Absolute Lymphocytes 2.7 1.0 - 4.0 K/mcL 03/31/2024 10:52 PM [facility][NOTE 3] Absolute Monocytes 0.7 0.3 - 0.9 K/mcL 03/31/2024 10:52 PM [facility][NOTE 3] Absolute Eosinophils 0.2 0.0 - 0.5 K/mcL 03/31/2024 10:52 PM [facility][NOTE 3] Absolute Basophils 0.1 0.0 - 0.3 K/mcL 03/31/2024 10:52 PM [facility][NOTE 3] Absolute Immature Granulocytes 0.1 0.0 - 0.2 K/mcL 03/31/2024 10:52 PM [facility][NOTE 3] Blood VENOUS BLOOD SPECIMEN / Unknown Venipuncture / Unknown 03/31/2024 10:44 PM ENROLLER 03/31/2024 10:49 PM [facility] Narrative [facility] - 03/31/2024 10:52 PM [facility] This is an appended report. These results have been appended to a previously verified report. Hayden SCHMITTR LAB BLOOD ORDERA BLES [facility] [address] [place] [address] * D Dimer, Quantitative (03/31/2024 10:44 PM ENROLLER) [facility] D Dimer, Quantitative 0.41 <0.57 mg/L (FEU) 03/31/2024 11:07 PM ENROLLER [facility] Blood VENOUS BLOOD SPECIMEN / Unknown Venipuncture / Unknown 03/31/2024 10:44 PM ENROLLER 03/31/2024 10:49 PM ENROLLER Narrative [facility] - 03/31/2024 11:07 PM ENROLLER Values < 0.50 mg/L(FEU) may be useful to help exclude DVT or PE in patients at low clinical risk for these disorders. For patients above the age of 50, the [employer] recommends using age adjusted cutoff values. AGE X 0.01 calculates the age adjusted cutoff value in mg/L for these patient populations. Hayden HANDLEY LAB BLOOD ORDERA BLES Performing Organization Address [facility]/[place] [address] * TROPONIN I, HIGH SENSITIVITY (03/31/2024 10:44 PM ENROLLER) Troponin I, High Sensitivity 20 <77 ng/L 03/31/2024 11:11 PM ENROLLER [facility] Blood VENOUS BLOOD SPECIMEN / Unknown Venipuncture / Unknown 03/31/2024 10:44 PM ENROLLER 03/31/2024 10:52 PM ENROLLER Hayden HANDLEY LAB BLOOD ORDERA BLES Performing Organization Address [facility] [place] [address] * (ABNORMAL) Partial Thromboplastin Time (PTT) (03/31/2024 10:44 PM ENROLLER) PTT 38(H) 22 - 32 sec 03/31/2024 11:07 PM ENROLLER [facility] Blood VENOUS BLOOD SPECIMEN / Unknown Venipuncture / Unknown 03/31/2024 10:44 PM ENROLLER 03/31/2024 10:49 PM ENROLLER Narrative [facility] - 03/31/2024 11:07 PM ENROLLER PTT Therapeutic Range: 45-65 seconds. Hayden Bashor DO BKR LAB BLOOD ORDERA BLES Performing Organization Address [facility] Co de Phone Number [address] [address] * Prothrombin Time (INR/PT) (03/31/2024 10:44 PM ENROLLER) Pathologist [facility] Protime- PT 10.4 9.7 - 11.8 sec 03/31/2024 11:07 PM ENROLLER [facility] INR 1.0 03/31/2024 11:07 PM ENROLLER [facility] Comment:INR Therapeutic Rang e: 2.0 to 3.0 (2.5 to 3.5 recommended for recurrent thrombotic episodes and mechanical prosthetic heart valves.) Blood VENOUS BLOOD SPECIMEN / Unknown Venipuncture / Unknown 03/31/2024 10:44 PM ENROLLER 03/31/2024 10:49 PM ENROLLER Hayden Bashor DO BKR LAB BLOOD ORDERA BLES Performing Organization Address [facility]/ZIP Co de Phone Number [address] [address] * Lipase (03/31/2024 10:44 PM ENROLLER) [facility] Lipase 45 15 - 77 Units/L 03/31/2024 11:11 PM ENROLLER [facility] Blood VENOUS BLOOD SPECIMEN / Unknown Venipuncture / Unknown 03/31/2024 10:44 PM ENROLLER 03/31/2024 10:52 PM ENROLLER Hayden Bashor DO BKR LAB BLOOD ORDERA BLES Performing Organization Address [facility] Co de Phone Number [address] [address] * (ABNORMAL) Comprehensive Metabolic Panel (03/31/2024 10:44 PM ENROLLER) [facility] Fasting Status 03/31/2024 11:11 PM ENROLLER [facility] Sodium 138 135 - 145 mmol/L 03/31/2024 11:11 PM [facility][NOTE 3] Potassium 4.1 3.4 - 5.1 mmol/L 03/31/2024 11:11 PM [facility][NOTE 3] Chloride 102 97 - 110 mmol/L 03/31/2024 11:11 PM [facility][NOTE 3] Carbon Dioxide 25 21 - 32 mmol/L 03/31/2024 11:11 PM [facility][NOTE 3] Anion Gap 15 7 - 19 mmol/L 03/31/2024 11:11 PM [facility][NOTE 3] Glucose 93 70 - 99 mg/dL 03/31/2024 11:11 PM [facility][NOTE 3] BUN 16 6 - 20 mg/dL 03/31/2024 11:11 PM [facility][NOTE 3] Creatinine 0.80 0.67 - 1.17 mg/dL 03/31/2024 11:11 PM [facility][NOTE 3] Glomerular Filtration Rate >90 >=60 03/31/2024 11:11 PM [facility][NOTE 3] Comment:eGFR results = or >6 0 mL/min/1.73m2 = Normal kidney function. Estimated GFR calculated using the CKD-EPI-R (2020) equation that does not include race in the creatinine calculation. BUN/Cr 20 7 - 25 03/31/2024 11:11 PM [facility][NOTE 3] Calcium 8.8 8.4 - 10.2 mg/dL 03/31/2024 11:11 PM [facility][NOTE 3] Bilirubin, Total 0.2 0.2 - 1.0 mg/dL 03/31/2024 11:11 PM [facility][NOTE 3] GOT/AST 26 <=37 Units/L 03/31/2024 11:11 PM [facility][NOTE 3] GPT/ALT 46 <64 Units/L 03/31/2024 11:11 PM [facility][NOTE 3] Alkaline Phosphatase 110 45 - 117 Units/L 03/31/2024 11:11 PM [facility][NOTE 3] Albumin 3.6 3.4 - 5.0 g/dL 03/31/2024 11:11 PM [facility][NOTE 3] Protein, Total 8.0 6.4 - 8.2 g/dL 03/31/2024 11:11 PM [facility][NOTE 3] Globulin 4.4(H) 2.0 - 4.0 g/dL 03/31/2024 11:11 PM [facility][NOTE 3] A/G Ratio 0.8(L) 1.0 - 2.4 03/31/2024 11:11 PM ENROLLER [facility] Blood VENOUS BLOOD SPECIMEN / Unknown Venipuncture / Unknown 03/31/2024 10:44 PM ENROLLER 03/31/2024 10:52 PM ENROLLER Hayden Bashor DO BKR LAB BLOOD ORDERA BLES Performing Organization Address City/State/[facility] Co de Phone Number [facility] [address] [place] [address] * XR CHEST AP OR PA (03/31/2024 9:57 PM ENROLLER) Anatomical Region Laterality Modality Chest/Thorax N/A Digital Radiogra phy 03/31/2024 10:1 3 PM ENROLLER Impressions 03/31/2024 10:14 PM ENROLLER IMPRESSION: No acute cardiopulmonary disease. Electronically Signed by: Daniel Dawkins MD Signed on: 03/31/2024 10:14 PM Created on Workstation ID: [id number] Signed on Workstation ID: [id number] Narrative 03/31/2024 10:14 PM ENROLLER EXAM: XR CHEST AP OR PA DATE: 03/31/2024 9:36 PM COMPARISON: 02/22/2024 and earlier. Manifestations of cardiac surgery are redemonstrated. CLINICAL HISTORY: central chest pain FINDINGS: The lungs are clear of infiltrate. There are no pleural effusions. The heart size is normal. The aorta is tortuous and demonstrates atherosclerotic calcifications. Manifestations of cardiac surgery are redemonstrated. The bony structures are unremarkable. Procedure Note Daniel Dawkins MD - 03/31/2024 EXAM: XR CHEST AP OR PA DATE: 03/31/2024 9:36 PM COMPARISON: 02/22/2024 and earlier. Manifestations of cardiac surgeryare redemonstrated. CLINICAL HISTORY: central chest pain FINDINGS: The lungs are clear of infiltrate. There are no pleural effusions. The heart size is normal. The aorta is tortuous and demonstrates atherosclerotic calcifications. Manifestations of cardiac surgery are redemonstrated. The bony structures are unremarkable. IMPRESSION: No acute cardiopulmonary disease. Electronically Signed by: Daniel Dawkins MD Signed on: 03/31/2024 10:14 PM Created on Workstation ID: [id number] Signed on Workstation ID: [id number] Hayden Carver IMG XR PROCEDURES documented in this encounter Visit Diagnoses Diagnosis Syncope and collapse- Primary Nonspecific chest pain- Primary Chest pain, unspecified documented in this encounter Administered Medications Inactive Administered Medications - up to 1 most recent administrations Medication Order MAR Action Action Date Dose Rate Site alum-mag hydroxide+simethicone/lidocaine viscous (2:1) (MAGIC MOUTHWASH/GI COCKTAIL) (compounded) oral suspension 15 mL 15 mL ONCE, Oral, On 04/01/24 at 0016, For 1 dose, For stomatitis: Instruct patient to swish and swallow. * Shake well * Each 15 mL contains 5 mL Lidocaine viscous 2% and 10 mL Magnesium-Aluminum hydroxide+Simethicone. Given 04/01/2024 12:26 AM ENROLLER 15 mLs aspirin chewable 324 mg 324 mg ONCE, Oral, On Wed03/31/24 at 2135, For 1 dose Given 03/31/2024 9:48 PM ENROLLER 324 mg hydrALAZINE (APRESOLINE) injection 10 mg 10 mg ONCE, Intravenous, On Wed03/31/24 at 2204, For 1 dose, * Do NOT Refrigerate * Given 03/31/2024 10:48 PM ENROLLER 10 mg hydrALAZINE (APRESOLINE) injection 10 mg 10 mg ONCE, Intravenous, On 04/01/24 at 0130, For 1 dose, * Do NOT Refrigerate * Given 04/01/2024 1:33 AM ENROLLER 10 mg ketorolac (TORADOL) injection 15 mg 15 mg ONCE, Intravenous, On Wed03/31/24 at 2253, For 1 dose, Do not administer with other NSAIDs. If IV, give over at least 15 seconds. Ketorolac therapy maximum allowed duration: 5 days. If an IV and an oral medication are ordered PRN for the same pain severity, administer IV only if patient is NPO/if oral is not tolerated. * Protect from light * Given 03/31/2024 10:54 PM ENROLLER 15 mg nitroGLYCERIN (NITROSTAT) sublingual tablet 0.4 mg 0.4 mg ONCE, Sublingual, On Wed03/31/24 at 2135, For 1 dose, Contact physician if chest pain unrelieved after 3 doses. Hold if SBP less than 90 mmHg or HR less than 50 BPM. Do NOT Crush or Chew. Given 03/31/2024 9:49 PM ENROLLER 0.4 mg documented in this encounter Active and Recently Administered Medications Times are shown in ENROLLER. Scheduled Medication Order 03/30/2024 03/31/2024 04/01/2024 alum-mag hydroxide+simethicone/lido katie viscous (2:1) (MAGIC MOUTHWASH/GI COCKTAIL) (compounded) oral suspension 15 mL (COMPLETED) 15 mL ONCE, Oral, On 04/01/24 at 0016, For 1 dose, For stomatitis: Instruct patient to swish and swallow. * Shake well * Each 15 mL contains 5 mL Lidocaine viscous 2% and 10 mL Magnesium-Aluminum hydroxide+Simethicone. 0026 (Given - Provid er: Bekah Cortes RN) aspirin chewable 324 mg (COMPLETED) 324 mg ONCE, Oral, On Wed03/31/24 at 2135, For 1 dose 2148 (Given - Provider: Bekah Cortes RN) hydrALAZINE (APRESOLINE) injection 10 mg (COMPLETED) 10 mg ONCE, Intravenous, On Wed03/31/24 at 2204, For 1 dose, * Do NOT Refrigerate * 2248 (Given - Provider: Bekah Cortes RN) hydrALAZINE (APRESOLINE) injection 10 mg (COMPLETED) 10 mg ONCE, Intravenous, On 04/01/24 at 0130, For 1 dose, * Do NOT Refrigerate * 0133 (Given - Provid er: Bekah Cortes RN) ketorolac (TORADOL) injection 15 mg (COMPLETED) 15 mg ONCE, Intravenous, On Wed03/31/24 at 2253, For 1 dose, Do not administer with other NSAIDs. If IV, give over at least 15 seconds. Ketorolac therapy maximum allowed duration: 5 days. If an IV and an oral medication are ordered PRN for the same pain severity, administer IV only if patient is NPO/if oral is not tolerated. * Protect from light * 2254 (Given - Provider: Bekah Cortes RN) nitroGLYCERIN (NITROSTAT) sublingual tablet 0.4 mg (COMPLETED) 0.4 mg ONCE, Sublingual, On Wed03/31/24 at 2135, For 1 dose, Contact physician if chest pain unrelieved after 3 doses. Hold if SBP less than 90 mmHg or HR less than 50 BPM. Do NOT Crush or Chew. 2148 (Given - Provider: Bekah Cortes RN) documented in this encounter Additional Health Concerns Assessment Noted Time PHQ-9 Depression Total Score: 17 024 8:08 PM ENROLLER documented as of this encounter Advance Directives Documents on File Type Date Recorded Patient Math And Science Division Chair Expl anation [id number] 02/28/2024 3:12 PM * Full Resuscitation (Latest [...] Agents on File Name Relationship Healthcare Agent Aureaoh roseanne Garnett Daughter Health Care Agent Care Teams Legal Receptionist Relationship Specialty Start Date End Date Christy Gonzalez MD [address] [facility] [address] [place] [address] PCP - General Internal Medicine 12/21/22 Abbey Castano MSW Hydraulic Auto Jack Mechanic - Population Health Social Work 01/28/24 documented as of this encounter
--- OUTSIDE RECORDS SUMMARY | 2024-04-09 16:16 | XMS_ITS | Summary of Care ---
Author Organization [facility] Address [address] [place] [address] Care Team Providers Care Creative Perfumer Name Role Phone Christy Gonzalez MD Primary Care Provider [phone] Abbey Castano CLINICAL TECHNOLOGIST Unavailable Unavailable Reason for Visit * Reason Comments Follow-up ongoing chset pain, frequent ED visits * Consult & Treatment (Routine) - Closed Specialty Diagnoses / Procedures Referred By Kacey kaur Referred To Contact Diagnoses Nonspecific chest pain Hayden Carver DO [address] [place] [address] Bal Mayen MD [address] [address] Referral ID Status Reason Start Date Expiration Date Visits Re quested Visits Authorized [id number] Closed 04/01/2024 04/01/2025 1 1 Encounter Details Date Type Department Care Team (Late st Contact Info) Description 04/05/2024 9:00 AM CONVEYOR BELT REPAIRER Office Visit [facility] [address] [id number] Bal Mayen MD [address] [id number] Hypertension, unspecified type (Primary Dx); Hyperlipidemia, unspecified hyperlipidemia type Allergies Active Allergy Reactions Criticality Noted Date Comments Pollen Low 07/06/2011 Statins MYALGIA Medium 09/10/2015 Added per MD notation that he cannot tolerate statins for treatment documented as of this encounter (statuses as of 04/06/2024) Medications Medication Sig Dispensed Refills Start Date End Date Status calcium carbonate (TUMS) 500 MG chewable tablet Chew 1 tablet by mouth as needed for Heartburn. Active albuterol (ProAir HFA) 108 (90 Base) MCG/ACT inhalerIndication s:Asthma Inhale 2 puffs into the lungs every 4 hours as needed for Shortness of Breath or Wheezing. 8.5 g 1 02/26/2023 Active aspirin (ECOTRIN) 81 MG EC tabletIndications :Atherosclerotic Disease Take 1 tablet by mouth daily. 15 tablet 1 02/27/2023 Active carvedilol (COREG) 12.5 MG tabletIndications :Hypertension Take 1 tablet by mouth every 12 hours. 30 tablet 1 02/26/2023 Active hydroCORTisone (CORTIZONE) 1 % cream Apply topically 2 times daily as needed (rash). 28 g 02/26/2023 Active spironolactone (ALDACTONE) 25 MG tabletIndications :Hypertension Take 1 tablet by mouth daily. 15 tablet 1 02/26/2023 Active atorvastatin (LIPITOR) 80 MG tablet Take 80 mg by mouth at bedtime. 01/22/2024 Active ezetimibe (ZETIA) 10 MG tablet Take 10 mg by mouth at bedtime. 11/11/2023 Active ranolazine (RANEXA) 500 MG 12 hr tablet Take 500 mg by mouth in the morning and 500 mg in the evening. 01/21/2024 Active clopidogrel (PLAVIX) 75 MG tablet Take 1 tablet by mouth daily. 90 tablet 3 02/24/2024 02/18/2025 Active QUEtiapine (SEROquel) 50 MG tabletIndications :Bipolar Mood Disorder Take 1 tablet by mouth at bedtime. Indications: Manic-Depression 90 tablet 3 03/14/2024 Active escitalopram (LEXAPRO) 20 MG tabletIndications :Obsessive Compulsive Disorder Take 1 tablet by mouth daily. Indications: Obsessive Compulsive Disorder 90 tablet 3 03/14/2024 Active ARIPiprazole (ABILIFY) 10 MG tabletIndications :Mixed Bipolar Affective Disorder Take 1 tablet by mouth daily. Indications: MIXED BIPOLAR AFFECTIVE DISORDER 90 tablet 3 03/14/2024 Active losartan (COZAAR) 100 MG tabletIndications :Hypertension, unspecified type Take 1 tablet by mouth daily. 90 tablet 3 04/05/2024 04/05/2025 Active losartan (COZAAR) 50 MG tablet Take 100 mg by mouth daily. 01/22/2024 04/05/2024 Discontinue d(Dose Adjustment) documented as of this encounter (statuses as of 04/06/2024) Active Problems Problem Noted Date Diagnosed Date History of attention deficit hyperactivity disor hilda (ADHD) 03/10/2023 Bipolar disorder, curr episo de mixed, severe, with psychotic features (CMD) 03/10/2023 Chest pain, unspecified type 02/17/2023 Hypertensive urgency 12/17/2022 Pleural effusion, bilateral 04/25/2022 S/P CABG x 3 04/13/2022 ACS (acute coronary syndrome) (CMD) 04/10/2022 Syncope and collapse 04/10/2020 Assessment & Plan (04/10/2020 1:59 PM CONVEYOR BELT REPAIRER): He had 3 episodes of syncope in [...] 04/29/2015 Assessment & Plan (04/10/2020 1:53 PM CONVEYOR BELT REPAIRER): Last echo 01/31/2020 with LVEF 57%. Continue current management. Obsessive compulsive disorder 04/16/2015 Coronary artery disease invo lving [place] coronary artery of [place] heart with angina pectoris (CMD) 10/24/2014 Overview (10/24/2014): s/p stent to lad Assessment & Plan (04/10/2020 1:52 PM CONVEYOR BELT REPAIRER): Stable. Follow up by Dr. Mayen. Snoring 10/12/2011 Hypersomnolence 10/12/2011 Bronchial asthma (CMD) HTN (hypertension) Assessment & Plan (04/10/2020 1:52 PM CONVEYOR BELT REPAIRER): Continue current management. Chronic low back pain Impaired fasting glucose Dyslipidemia Obesity SOB (shortness of breath) on exertion documented as of this encounter (statuses as of 04/06/2024) Resolved Problems Problem Noted Date Diagnosed Date Resolved Date Mood disorder (CMD) 02/21/2023 03/10/20 23 Moderate depressed bipolar I disorder (CMD) 05/15/2016 03/10/2023 ADD (attention deficit disor hilda) without hyperactivity 05/15/2016 03/10/2023 documented as of this encounter (statuses as of 04/06/2024) Immunizations Name Administration Dates Next Due COVID Pfizer 12Y+ (Requires Dilution) 01/17/2021 ,12/27/2020 Influenza, split virus, trivalent 12/29/2006,12/2003,01/16/2003 Tdap 11/06/2008 documented as of this encounter Social History Tobacco Use Types Packs/Day Years Used Date Smoking Tobacco: Every Day Cigarettes 0.6 74 Started: 1980 Smokeless Tobacco: Never Tobacco Cessation:Ready to Q uit: Not Asked; Counseling Given: Not Answered Comments:About 4 cigarettes/day Alcohol Use Standard Drinks/Week Comments No 0 [...] th e electric, gas, oil, or water company threatened [...] phone, visiting friends or family, going to spiritism or club meetings) Patient declined 02/23/2024 Alcohol [...] does anyone, sen henderson family and friends, threaten you with harm? Never 04/04/2024 How often does anyone, inclu ding family and friends, scream or curse at [...] Sign Reading Time Taken Comments Blood Pressure 172/96 04/05/2024 8:59 AM CONVEYOR BELT REPAIRER Pulse 64 04/05/2024 8:59 AM CONVEYOR BELT REPAIRER Temperature - - Respiratory Rate - - Oxygen Saturation - - Inhaled Oxygen Concentration - - Weight 109 kg (240 lb 4.8 oz) 04/05/2024 8:59 AM CONVEYOR BELT REPAIRER Height 177.8 cm (5' 10) 04/05/2024 8:59 AM CONVEYOR BELT REPAIRER Body Mass Index 34.48 04/05/2024 8:59 AM CONVEYOR BELT REPAIRER documented in this encounter Functional Status Functional [...] No 02/22/2024 documented as of this encounter Patient Instructions * Patient Instructions* Lizabeth Alicea - 04/05/2024 9:31 AM CONVEYOR BELT REPAIRER Increase losartan to 100 mg daily EYOR BELT REPAIRER documented in this encounter Ordered Prescriptions Prescription Sig Dispensed Refills Start Date End Da te losartan (COZAAR) 100 MG tabletIndications:Hyperte nsion, unspecified type Take 1 tablet by mouth daily. 90 tablet 3 04/05/2024 04/05/2025 documented in this encounter Progress Notes * Bal Mayen MD - 04/05/2024 9:04 AM CST OFFICE VISIT: 04/05/2024 Chief Complaint Patient presents with Follow-up ongoing chset pain, frequent ED visits HISTORY OF PRESENT ILLNESS: Johnny Garnett is a 53 year old male with a PMHx of coronary artery disease s/p CABG x3 (03/2022) s/p PCI with JOSESITO to LAD on 01/20/2024 in [place], ischemic cardiomyopathy with now normalized EF,hypertension, and dyslipidemia. The patient was admitted to the hospital from 12/17/2022-12/22/2022 after presenting with chest pain and blood pressure. He was discharged with a plan for outpatient follow up. The patient was admittedseveral different times at several different hospitals due to chest pain and hypertension. He was admitted to [facility] in [place] on 01/16/2024 due to chest pain and underwent an initial LHC and repeat LHC with staged PCI. With JOSESITO to the LAD on 01/20/2024. The patient was then admitted to [facility] from 02/22/2024-02/24/2024 d/t hypertensive urgency. Hewas then seen in the ED several more times with chest pain, most recently being on 04/04/2024. The patient presents today unaccompanied, and reports doing well from a cardiac standpoint. The patient states that he has been told that his chest pain could be associated with elevated blood pressures. He is unsure why his blood pressures are not well controlled. Recent testing and labs were reviewed with the patient during their appointment. The patient is compliant with all cardiac medications and reports tolerating them well. No reports of SOB, palpitations, edema, and dizziness. The patient continues to smoke, though is trying to quit. He denies any drug use. DIAGNOSTICS: Stress Test 03/12/2024 @ [facility] 1. No evidence of stress-induced myocardial ischemia. 2. Normal wall motion with left ventricular ejection fraction of 39%. Please correlate with echocardiogram. Echo 03/11/2024 @ [facility] The left ventricular ejection fraction is estimated to be in the normal range at 65%. There is no pericardial effusion. 01/20/24 @ [facility] [place]: successful IVUS guided PTCA/JOSESITO of proximal LAD with reduction in stenosis from 90% to 0%. Xience Skypoint 3.25mm x 18mm 01/19/24 [facility] @ [facility] [place] * LMT: Mild irregularities.LAD: 90% proximal then subtotal occlusion in its midportion immediately after the origin of the first diagonal branch. Beyond the point of subtotal occlusion the vessel fills via the EPSTEIN graft and displays mild irregularities. The first diagonal branch is a large diagonal with multiple side branches.CX: Probably balanced circulation. Diffuse mild to moderate disease inthe proximal and middle portion of the main trunk, then more severe diffuse disease distally up to 70 to 80%.RCA: Probably codominant. Small in caliber, diffusely diseased and 100% occluded.EPSTEIN to LAD: Patent.SVG to distal OM: Patent.SVG to PDA: Patent. 01/18/2024 Stress Test @ [facility] [place] 1. The stress test is abnormal with large ischemia. 2. A large sized, mild to severe perfusion defect in the anterior, anteroseptal, septal, inferior, lateral, and apex bronson is partially reversible. Using attenuation correction improved but not completely back to normal. So this suggestive of ischemia. 3. Normal TID score. 4. EKG is not diagnostic as target HR was not achieved. 5. Scan indicates high risk for cardiac events. Cardiac Cath 04/11/22 Findings: Right dominant coronary anatomy with a type 3 LAD. 95% proximal LAD in stent restenosis. 60% mid LAD stenosis distal to D1. 80% distal LCx stenosis 60% distal RCA stenosis proximal to PDA LVEDP = 30 mmHg. Intervention: None Plan: 1. TR band x1h after radial sheath removal 2. Continue heparin ip, aspirin. Discontinue plavix. Start lasix for heart failure. 3. Resume heparin drip 6 hours after TR band removal at prior rate, no bolus. 3. Obtain echo. 4. Consult to Dr. Marquis with CV surgery for evaluation for CABG. Patient has had difficulty with medication compliance in the past, as well as history of substance use that may make CABG a safer and more durable intervention than stenting. Echo 04/11/22 Normal left ventricular chamber size. Left ventricular ejection fraction; 64 %. Apical hypokinesis. Grade II diastolic dysfunction of the left ventricle (pseudonormal filling pattern). Normal right ventricular systolic function. Mildly elevated right ventricular systolic pressure 42 mmHg. Left atrial volume index of 42.9 ml/m??. No pericardial effusion. Compared to prior study of February 20, 2020, left ventricle filling pressure has increased. CABG 04/13/22 PROCEDURE PERFORMED: 1.) Coronary artery bypass graft x 3, left internal mammary artery to LAD, saphenous vein graft to RPDA and saphenous vein graft to OM3 (LPDA) 2.) Endoscopic vein harvest 3.) left internal mammary artery harvest Limited Echo 04/26/22 Limited transthoracic echo for pericarditis. No pericardial effusion. The RV free wall exhibits some tethering on subcostal views. Respiratory dependent ventricular septal interdependence is present. Pulse-wave Doppler demonstrates a restrictive mitral inflow pattern and the tissue Dopplers demonstrate an elevated velocity of the septal mitral annular tissue (0.09 m/sec). Normal LV size and systolic function, EF 60%. Hypokinesis in the mid to basal anterior wall. Expiratory late diastolic flow reversals are present (see diagram). In the presence of septal interdependence, elevated septal mitral e' velocity of 0.09 and expiratory hepatic vein diastolic flow reversal would consider the diagnosis of constrictive pericarditis. Cholesterol (mg/dL) Date Value 04/12/2022 188 HDL (mg/dL) Date Value 04/12/2022 54 Cholesterol/ HDL Ratio (no units) Date Value 04/12/2022 3.5 Triglycerides (mg/dL) Date Value 04/12/2022 72 LDL (mg/dL) Date Value 04/12/2022 120 Patient Active Problem List Diagnosis Bronchial asthma (CMD) HTN (hypertension) Chronic low back pain Impaired fasting glucose Dyslipidemia Obesity Snoring Hypersomnolence Coronary artery disease involving [place] coronary artery of [place] heart with angina pectoris (CMD) Obsessive compulsive disorder Atypical chest pain Ischemic cardiomyopathy Bee sting Ankle cellulitis Cocaine abuse (CMD) SOB (shortness of breath) on exertion Syncope and collapse ACS (acute coronary syndrome) (CMD) S/P CABG x 3 Pleural effusion, bilateral Hypertensive urgency Chest pain, unspecified type History of attention deficit hyperactivity disorder (ADHD) Bipolar disorder, curr episode mixed, severe, with psychotic features (CMD) I have personally reviewed and updated the following Epic sections: Current Medications, Allergies,Problem List, Past Medical History, Past Surgical History, Social History and Family History. Medications: Outpatient Medications Marked as Taking for the 04/05/24 encounter (Office Visit) with Bal Mayen MD Medication Sig Dispense Refill QUEtiapine (SEROquel) 50 MG tablet Take 1 tablet by mouth at bedtime. Indications: Manic-Rtobqjolhb42 tablet 3 ARIPiprazole (ABILIFY) 10 MG tablet Take 1 tablet by mouth daily. Indications: MIXED BIPOLAR AFFECTIVE DISORDER 90 tablet 3 clopidogrel (PLAVIX) 75 MG tablet Take 1 tablet by mouth daily. 90 tablet 3 atorvastatin (LIPITOR) 80 MG tablet Take 80 mg by mouth at bedtime. ezetimibe (ZETIA) 10 MG tablet Take 10 mg by mouth at bedtime. aspirin (ECOTRIN) 81 MG EC tablet Take 1 tablet by mouth daily. 15 tablet 1 carvedilol (COREG) 12.5 MG tablet Take 1 tablet by mouth every 12 hours. 30 tablet 1 spironolactone (ALDACTONE) 25 MG tablet Take 1 tablet by mouth daily. 15 tablet 1 calcium carbonate (TUMS) 500 MG chewable tablet Chew 1 tablet by mouth as needed for Heartburn. PHYSICAL EXAMINATION: Vitals: 04/05/24 0859 BP: (!) 172/96 Pulse: 64 CONSTITUTIONAL: Well-developed, well-nourished. PSYCHIATRIC/NEUROLOGIC: Comfortable and in no apparent distress. Alert and oriented x3. In a good mood. SKIN: Soft, warm, and dry without rashes or bruises. LUNGS: Respiratory effort is unlabored. Lungs are clear without wheezing or crackles. CARDIAC EXAM: The PMI is nondisplaced. Auscultation reveals a normal S1, normal S2. No S3 or S4. Nomurmurs, clicks, or pericardial friction rub. EXTREMITIES: Without clubbing, cyanosis or edema. Femoral and pedal pulses intact. Review of Systems Constitutional: Negative. Respiratory: Negative. Hematologic/Lymphatic: Negative. Skin: Negative. Musculoskeletal: Negative. Gastrointestinal: Negative. ASSESSMENT/PLAN: Coronary Artery Disease: s/p stenting and CABG x3 (03/2022). S/p PCI w/ JOSESITO (Xience Skypoint 3.25mm x 18mm) to LAD on 01/20/2024 in [place]. Stress test 03/12/2024 at [facility] noted no ischemia. On Ranexa, statin, bASA, and Plavix. Instructed the patient to contact [facility] in [place] in order to have the films of the cardiac catheterization sent to the clinic. Recommended increased exercise and better blood pressure control. History of Ischemic Cardiomyopathy: Echo from 03/11/2024 at [facility] noted an LVEF of 65%. Well compensated on exam. Continue on current medications. Hypertension: Blood pressure elevated in clinic today at 172/96. On spironolactone, Ranexa, losartan, and carvedilol. Increase losartan to 100 mg daily. Instructed the patient to increase his activity level and to decrease his salt intake. Dyslipidemia: Last lipid panel noted on 01/17/2024. CHOL 214, HDL 90, LDL 142, TG 280. On Zetia 10 mg daily and atorvastatin 80 mg nightly. Obtain repeat fasting lipid panel and LFTs after visit in clinic today. Smoker: Patient is currently attempting to quit. Return in about 3 months (around 07/04/2024). or sooner if problems arise. On 04/05/2024, Lizabeth Frances scribed the services personally performed by Bal Mayen MD The documentation recorded by the scribe accurately and completely reflects the service(s) I personally performed and the decisions made by me. EYOR BELT REPAIRER documented in this encounter Plan of Treatment Upcoming Encounters Date Type Department Care Team (Late st Contact Info) Description 07/05/2024 4:15 PM CDT Office Visit [facility] [address] [place] [address] Bal Mayen MD [address] [place] [address] Scheduled Orders Name Type Priority Associated Diagnoses Orde r Schedule Lipid Panel With Reflex Lab Routine Hyperlipidemia, unspecified hyperlipidemia type Expected: 04/05/2024 (Approximate), Expires: 04/05/2025 Hepatic Function Panel Lab Routine Hyperlipidemia, unspecified hyperlipidemia type Expected: 04/05/2024 (Approximate), Expires: 07/04/2025 Health Maintenance Due Date Last Done Comments [...] Td or Tdap) 11/06/2018 11/06/2008 COVID-19 Vaccine (2023-2 5 season) 2023 01/17/2021, 12/27/2020 Influenza Vaccine [...] Author Advance Directives General Yes Abbey Castano, CLINICAL TECHNOLOGIST Note: Honoring Choices document sent 02/03 documented as of this encounter Medical Devices Implanted Type Area Student Ministries Director Device Identifier Shelf Expiration Date Model / Serial / Lot Culver Cv 1x1in Thk1.65mm Ptfe Patch Strl Lf - S. Implanted:Qty: 1 on 04/13/2022 by Javon Marquis MD at [facility] Graft N/A: Chest BD [employer] [id number] 11/23/2026 [id number] / . / [id number] Clip Internal Sm Wide Ligate Horizon Ti - S. Implanted:Qty: 3 on 04/13/2022 by Javon Marquis MD at [facility] Other Implant N/A: Chest [employer] [id number] 10/27/2026 [id number] / . / [id number] Sponge Abs [id number] 12.5x8cm Porcine Geltn Strl Disp Surgfm - S. Implanted:Qty: 1 on 04/13/2022 by Javon Marquis MD at [facility] Other Implant N/A: Chest [employer] [id number] 11/03/2025 [id number] / . / [id number] Clip Internal Med Chevron 24 Crtdg Ligate Triangulate Xsect - S. Implanted:Qty: 1 on 04/13/2022 by Javon Marquis MD at [facility] Other Implant N/A: Chest [employer] [id number] 11/23/2026 [id number] / . / [id number] Stent Resolute Intgr Microtrac 3.5mm 22mm - [id number] Implanted:Qty: 1 on 09/30/2014 by Bal Mayen MD at [facility] Stent Left Anterior Descending Artery [employer] . 07/04/2016 [id number] / / [id number] Description:Implant manufact urer/size/type and expiration date verified by proceduralist and procedure staff. Verification initials:cd/jk documented as of this encounter Visit Diagnoses Diagnosis Syncope and collapse- Primary Hypertension, unspecified type- Primary Hyperlipidemia, unspecified hyperlipidemia type documented in this encounter Additional Health Concerns Assessment Noted Time PHQ-9 Depression Total Score: 17 024 8:08 PM CONVEYOR BELT REPAIRER documented as of this encounter Advance Directives Documents on File Type Date Recorded Patient Supercharger Mechanic Expl anation [id number] 02/28/2024 3:12 PM * Full Resuscitation (Latest [...] Agents on File Name Relationship Healthcare Agent [facility] Communication Suad Garnett Daughter Health Care Agent Care Teams Creative Perfumer Relationship Specialty Start Date End Date Christy Gonzalez MD [address] [address] PCP - General Internal Medicine 12/21/22 Abbey Castano, CLINICAL TECHNOLOGIST Slip Cover Seamstress - Population Health Social Work 01/28/24 documented as of this encounter
--- OUTSIDE RECORDS SUMMARY | 2024-04-09 16:16 | XMS_ITS | Continuity of Care Document ---
Author Organization [facility] Address [address] [place] [address] Care Team Providers Care Property Manager Name Role Phone EUGENE, DOMINIC Montes De Oca Primary Care Physician Encounter Date(s): 03/26/24 - 03/26/[address] [facility] [address] [place] [address] Encounter Diagnosis Asthma(Discharge Diagnosis) - 03/26/24 Discharge Disposition: 01-Discharge to Home (Routine) Attending Physician: Carlos Elliott MD Allergies, Adverse Reactions, Alerts No Known Allergies Medications aspirin 0 Refill(s) Start Date: 03/26/24 Status: Ordered atorvastatin Oral, DAILY, 0 Refill(s) Start Date: 03/26/24 Status: Ordered carvedilol 12.5 mg oral tablet 0 Refill(s) Start Date: 03/26/24 Status: Ordered clopidogrel 75 mg oral tablet 0 Refill(s) Start Date: 03/26/24 Status: Ordered ezetimibe 10 mg, Oral, DAILY, 0 Refill(s) Start Date: 03/26/24 Status: Ordered HYDROcodone-acetaminophen Tab 5 mg-325 mg 0 Refill(s) Start Date: 03/26/24 Status: Ordered losartan Oral, DAILY, 0 Refill(s) Start Date: 03/26/24 Status: Ordered QUEtiapine 50 mg oral tablet 0 Refill(s) Start Date: 03/26/24 Status: Ordered ranolazine Oral, BID, 0 Refill(s) Start Date: 03/26/24 Status: Ordered spironolactone Oral, 0 Refill(s) Start Date: 03/26/24 Status: Ordered Mental Status 03/26/24 Level of Consciousness Alert 03/26/24 Neurological Symptoms None Characteristics of Speech Clear Procedures Procedure Date Related Diagnosis Body Site Status GRACIA VENOUS BLD VENIPUNCTURE 03/26/24 Completed GRACIA VENOUS BLD VENIPUNCTURE 03/26/24 Completed GRACIA VENOUS BLD VENIPUNCTURE 03/26/24 Completed GRACIA VENOUS BLD VENIPUNCTURE 03/26/24 Completed GRACIA VENOUS BLD VENIPUNCTURE 03/26/24 Completed GRACIA VENOUS BLD VENIPUNCTURE 03/26/24 Completed Results Laboratory List Name Date Hs Troponin I (Single) 03/26/24 COVID, Flu A/B, RSV PCR 03/26/24 CBC with Differential (CBC w/ Auto Diff) 03/26/24 Metabolic Panel, Basic (Basic Metabolic Panel) 03/26/24 N-terminal pro-Brain Natriuretic Peptide (NT-proBNP) 03/26/24 Prothrombin Time - INR (PT-INR) 03/26/24 .Auto Diff 03/26/24 Most recent to oldest [Reference Range]: 1 Troponin-I High Sensitivity [0-20 ng/L] 8 ng/L (03/26/24 12:54 PM) COVID19, SARS-CoV-2 Result [NEGATIVE] NE GATIVE 1 (03/26/24 11:10 AM) AGAP [2-16 mmol/L] 7 mmol/L (03/26/24 10:18 AM) INR [0.9-1.1] 0.9 (03/26/24 10:18 AM) Basophil Auto [0.00-2.00 %] 0.60 % (03/26/24 10:18 AM) CO2 [21-33 mmol/L] 25 mmol/L (03/26/24 10:18 AM) Lymph Auto [18.00-47.00 %] 19.90 % (03/26/24 10:18 AM) MCH [27.5-33.2 pg] 27.7 pg (03/26/24 10:18 AM) MCHC [32.0-36.0 g/dL] 33.6 g/dL (03/26/24 10:18 AM) MCV [81.0-97.0 fL] 82.2 fL (03/26/24 10:18 AM) [place] Auto [2.00-10.00 %] 9.50 % (03/26/24 10:18 AM) MPV [6.0-9.5 fL] 9.5 fL (03/26/24 10:18 AM) Neutro Auto [40.00-75.00 %] 66.90 % (03/26/24 10:18 AM) Eos Auto [2.00-10.00 %] 2.40 % (03/26/24 10:18 AM) Glucose Lvl [70-99 mg/dL] 107 mg/dL 2 *HI* (03/26/24 10:18 AM) HCT [42.00-52.00 %] 43.40 % (03/26/24 10:18 AM) Hgb [13.8-17.5 g/dL] 14.6 g/dL (03/26/24 10:18 AM) RBC [4.70-6.10 x10^6/uL] 5.28 x10^6/uL (03/26/24 10:18 AM) RDW [11.6-14.8 %] 12.7 % (03/26/24 10:18 AM) Sodium Lvl [133-144 mmol/L] 138 mmol/L (03/26/24 10:18 AM) Platelet [150-420 x10^3/uL] 369 x10^3/uL (03/26/24 10:18 AM) Potassium Lvl [3.4-5.1 mmol/L] 5.2 mmol/ L 3 *HI* (03/26/24 10:18 AM) WBC [4.6-10.5 x10^3/uL] 9.0 x10^3/uL (03/26/24 10:18 AM) BUN [6-24 mg/dL] 17 mg/dL (03/26/24 10:18 AM) Calcium Lvl [8.2-10.0 mg/dL] 8.4 mg/dL (03/26/24 10:18 AM) Chloride [96-109 mmol/L] 106 mmol/L (03/26/24 10:18 AM) Imm Gran # [0.00-0.07 x10^3/uL] 0.06 x10 ^3/uL (03/26/24 10:18 AM) Imm Gran % [0.00-0.90 %] 0.70 % (03/26/24 10:18 AM) Baso Number [0.00-1.00 x10^3/uL] 0.05 x1 0^3/uL (03/26/24 10:18 AM) Eos Number [0.00-0.70 x10^3/uL] 0.22 x10 ^3/uL (03/26/24 10:18 AM) Influenza A Homer [NEGATIVE] NEGATIVE (03/26/24 11:10 AM) Influenza B Homer [NEGATIVE] NEGATIVE (03/26/24 11:10 AM) Lymph Number [1.00-6.00 x10^3/uL] 1.79 x 10^3/uL (03/26/24 10:18 AM) [place] Number [0.00-1.00 x10^3/uL] 0.85 x1 0^3/uL (03/26/24 10:18 AM) Neut Number [1.20-7.00 x10^3/uL] 6.02 x1 0^3/uL (03/26/24 10:18 AM) RSV HOMER [NEGATIVE] NEGATIVE (03/26/24 11:10 AM) NT-proBNP [0-125 pg/mL] 323 pg/mL 4 *HI* (03/26/24 10:18 AM) eGFR CKD-EPI [>=60 mL/min/1.73m2] 83 mL/ min/1.73m2 5 (03/26/24 10:18 AM) Creatinine [0.60-1.20 mg/dL] 1.06 mg/dL (03/26/24 10:18 AM) 1Interpretive Data: This Nucleic Acid Test (HOMER) was performed by the method of Real-Time Reverse Welcome Hostess-PCR. 2Interpretive Data: Random glucose >= 200 is diagnostic of DM. 3Result Comment: 1+ Hemolysis (Trace) - Result may be falsely elevated due to hemolysis interference 4Interpretive Data: Diagnostic Criteria: CHF Unlikely IF: Age <50 and NT-proBNP <450 Age 50-75 and NT-proBNP <900 Age >75 and NT-proBNP <1800 Pride CHF Score <7 CHF Very likely IF NT-proBNP >10,000 Regardless of age. NT-proBNP should be used as a rule out test for CHF. *Biotin interference may cause inaccurate results* 5Interpretive Data: Reported eGFRcr??is based on the CKD-EPI 2020 equation that does not use a race coefficient. Vital Signs Most recent to oldest [Reference Range]: 1 Height/Length Measured 177.8 cm (03/26/24 10:16 AM) Weight 110 kg (03/26/24 10:16 AM) Body Mass Index 34.8 kg/m2 (03/26/24 10:16 AM) SpO2 [90-100 %] 98 % (03/26/24 1:15 PM) Blood Pressure [90-139/60-89 mmHg] 180/1 02mmHg *HI* (03/26/24 10:16 AM) Peripheral Pulse Rate [60-100 bpm] 70 bp m (03/26/24 10:16 AM) Heart Rate Monitored [60-100 bpm] 60 bpm (03/26/24 1:15 PM) Respiratory Rate [14-20 br/min] 22 br/mi n *HI* (03/26/24 1:15 PM) Social History Social History Type Response Smoking Status Current every day sm oker; Smokeless tobacco use: Never smokeless tobacco entered on: 03/26/24 Sex Male Sex Representation Male (finding) Hospital Discharge Instructions Follow Up Care 03/26/2024 09:54:45 With:DOMINIC KNIGHT Address: [address] [place] [phone] When: Unknown Note * Carlos Elliott MD: PERFORM Event Display: ED/UC Note-Provider Authored Date: [id number] Encounter Type Emergency Basic Information Time Seen: Carlos Elliott MD ??03/26/2024 09:57 Chief Complaint Chest pain for the last week. Pt was recently admitted for his asthma. History of Present Illness On arrival History??from patient Patient walks and complaining of left-sided chest pain and difficulty breathing Patient with long history of asthma??had a cardiac cath??with a stent put in and??December??he has been to various??emergency departments/hospitals over the last few years.?? Says he drives up and down the highway visiting different hospitals.?? His pain is nonpleuritic and nonexertional.?? He has no nausea vomiting fevers chills??cough??shortness of breath. Social History Alcohol Use:Past Electronic Cigarette/Vaping E-Cigarette Use:Never Home/Environment Injuries/Abuse/Neglect in household:No Feels unsafe at home:No Substance Abuse Use:Never Tobacco Smoking tobacco use:Current every day smoker Smokeless tobacco use:Never smokeless tobacco Allergies No Known Allergies Physical Exam Vital Signs & Measurements Triage: HR: 70 (Peripheral) RR: 20 SpO2: 93% O2 Therapy: Room air WT: 110 kg WT: 110.000 kg (Dosing) BMI: 34.8 ?? Latest: HR: 60 (Monitored) BP: 180/102 RR: 22 SpO2: 98% O2 Therapy: Room air CONSTITUTIONAL: Alert, interactive, and non-toxic in appearance. HEAD: Normocephalic, atraumatic. NECK: Supple without meningismus. Full range of motion without pain. EYES:??Conjunctivae clear, sclera anicteric. Pupils equal, symmetric, and reactive to light. EARS:??External canals without discharge, redness, or swelling NOSE:??No rhinorrhea. MOUTH/THROAT:??Mucus membranes moist without lesions or exudates. RESPIRATORY:??Lungs clear to auscultation without distress. CARDIOVASCULAR:??Regular rate and rhythm. Normal capillary refill centrally and peripherally. GASTROINTESTINAL:??Abdomen is soft, non-tender, and non-distended. LYMPH:?? MUSCULOSKELETAL:??No joint or extremity swelling. Moves all extremities symmetrically without pain. SKIN:??No rashes or lesions. NEUROLOGIC:??Normal mental status, strength, and tone, with intact cranial nerves. ?? Lab Results Test Name Test Result Date/Time WBC 9.0 x10^3/uL 03/26/2024 10:18 CAREER DISCOVERY TEACHER RBC 5.28 x10^6/uL 03/26/2024 10:18 CAREER DISCOVERY TEACHER Hgb 14.6 g/dL 03/26/2024 10:18 CAREER DISCOVERY TEACHER HCT 43.40 % 03/26/2024 10:18 CAREER DISCOVERY TEACHER Platelet 369 x10^3/uL 03/26/2024 10:18 CAREER DISCOVERY TEACHER MCV 82.2 fL 03/26/2024 10:18 CAREER DISCOVERY TEACHER MCH 27.7 pg 03/26/2024 10:18 CAREER DISCOVERY TE[employer]ER MCHC 33.6 g/dL 03/26/2024 10:18 CAREER DISCOVERY TEACHER RDW 12.7 % 03/26/2024 10:18 CAREER DISCOVERY TEACHER MPV 9.5 fL 03/26/2024 10:18 CAREER DISCOVERY TEACHER Imm Gran % 0.70 % 03/26/2024 10:18 CAREER DISCOVERY TE[employer]ER Neutro Auto 66.90 % 03/26/2024 10:18 CAREER DISCOVERY TE[employer]ER Lymph Auto 19.90 % 03/26/2024 10:18 CAREER DISCOVERY TEACHER [place] Auto 9.50 % 03/26/2024 10:18 CAREER DISCOVERY TEACHER Eos Auto 2.40 % 03/26/2024 10:18 CAREER DISCOVERY TEACHER Basophil Auto 0.60 % 03/26/2024 10:18 CAREER DISCOVERY TEACHER Imm Gran # 0.06 x10^3/uL 03/26/2024 10:18 CAREER DISCOVERY TEACHER Lymph Number 1.79 x10^3/uL 03/26/2024 10:18 CAREER DISCOVERY TEACHER [place] Number 0.85 x10^3/uL 03/26/2024 10:18 CAREER DISCOVERY TEACHER Eos Number 0.22 x10^3/uL 03/26/2024 10:18 CAREER DISCOVERY TEACHER Baso Number 0.05 x10^3/uL 03/26/2024 10:18 CAREER DISCOVERY TEACHER Neut Number 6.02 x10^3/uL 03/26/2024 10:18 CAREER DISCOVERY TEACHER INR 0.9 03/26/2024 10:18 CAREER DISCOVERY TEACHER Sodium Lvl 138 mmol/L 03/26/2024 10:18 CAREER DISCOVERY TEACHER Potassium Lvl 5.2 mmol/L 03/26/2024 10:18 CAREER DISCOVERY TEACHER Chloride 106 mmol/L 03/26/2024 10:18 CAREER DISCOVERY TEACHER CO2 25 mmol/L 03/26/2024 10:18 CAREER DISCOVERY TEACHER AGAP 7 mmol/L 03/26/2024 10:18 CAREER DISCOVERY TEACHER BUN 17 mg/dL 03/26/2024 10:18 CAREER DISCOVERY TEACHER Creatinine 1.06 mg/dL 03/26/2024 10:18 CAREER DISCOVERY TEACHER Glucose Lvl 107 mg/dL 03/26/2024 10:18 CAREER DISCOVERY TEACHER Calcium Lvl 8.4 mg/dL 03/26/2024 10:18 CAREER DISCOVERY TEACHER NT-proBNP 323 pg/mL 03/26/2024 10:18 CAREER DISCOVERY TEACHER eGFR CKD-EPI 83 mL/min/1.73m2 03/26/2024 10:18 CAREER DISCOVERY TEACHER Troponin-I High Sensitivity 8 ng/L 03/26/2024 12:54 C[employer]ER DISCOVERY TEACHER Influenza A Homer NEGATIVE 03/26/2024 11:10 C[employer]ER DISC[employer]ERY TE[employer]ER Influenza B Homer NEGATIVE 03/26/2024 11:10 CAREER DISCOVERY TEACHER RSV HOMER NEGATIVE 03/26/2024 11:10 CAREER DISCOVERY TEACHER COVID19, SARS-CoV-2 Result NEGATIVE 03/26/2024 11:10 CAREER DISCOVERY TEACHER Diagnostic Details XR Chest PA/LAT: XR Chest PA/LAT (03/26/24 10:03:00) EKG EKG interpreted by me.?? 10:11 AM.?? NSR.?? 61.?? Normal axis.?? No acute ST-T wave abnormalities. Medication Reconciliation Unchanged aspirin atorvastatinOral every day. carvedilol (carvedilol 12.5 mg oral tablet) clopidogrel (clopidogrel 75 mg oral tablet) [id number] Milligram Oral every day. HYDROcodone-acetaminophen (HYDROcodone-acetaminophen Tab 5 mg-325 mg) losartanOral every day. QUEtiapine (QUEtiapine 50 mg oral tablet) ranolazineOral twice a day. spironolactoneOral. Medications Administered During Visit acetaminophen, 650 mg, Oral albuterol NEB, 2.5 mg, 2.5 mg, NEB aspirin, 162 mg, Chewed carvedilol, 12.5 mg, Oral predniSONE, 60 mg, Oral Assessment/Plan 1.??Asthma Orders: acetaminophen, 1000 mg= 100 mL, IV Piggyback, ONCE, Stop Date: 03/26/2024 albuterol(albuterol NEB), 2.5 mg= 3 mL, NEB, q10min, PRN ketorolac, 15 mg= 1 mL, IV Push, ONCE, Stop Date: 03/26/2024 Assessment and plan:??Young man??with a long history of asthma??says that he has chest pain. ??He is asking for morphine.?? I will do a chest x-ray EKG labs??and treat him for asthma.?? I will monitor him.?? I will have him follow-up with PMD. 2:30 PM??EKG x 2 and Trope x 2 are negative. ??I therefore doubt that he has an [facility].?? Patient continues to request morphine.?? I negotiated with him and I will give him ketorolac as well as IV acetaminophen.?? I will discharge him home.?? I told him to follow-up with his PMD. Follow Up Care With When Contact Information DOMINIC KNIGHT [address] [place] [address] Additional Instructions: Electronically Signed on 03/26/2024 02:34 PM Carlos Chanel MD * Carlos Elliott MD: PERFORM Event Display: ED/UC Note-Provider Authored Date: [id number] ?? The patient is able to stand and walk on it.?? However all your sexual partners tested and treated for STD EKG #1 interpreted by me.?? 10:11 AM.?? NSR.?? 61.?? No acute ST-T wave abnormalities. ?? EKG #2??interpreted by me??no acute changes. Electronically Signed on 03/26/2024 05:34 PM Carlos Chanel MD XR Chest PA and Lateral * Jocelyne YADAV, Maris Shah: REVIEW Gavin Yoder: VERIFY, PERFORM Gavin Yoder: PERFORM, SIGN Gavin Yoder: SIGN Carlos Elliott MD: REVIEW Event Display: XR Chest PA/LAT Authored Date: [id number] Patient Care team information Care Team Personnel Name: DOMINIC KNIGHT Member Role: Primary Care Physician Address: [address] [place] [address] [place] Care Team Related Persons Name: KOBE NG Address: Home [address] [facility] [address] Address: Mailing [address] [place] [address]
--- OUTSIDE RECORDS SUMMARY | 2024-04-09 16:16 | XMS_ITS | Summary of Care ---
Author Organization [facility] Address [address] [place] [address] Care Team Providers Care Landscape Crew Member Name Role Phone Christy Gonzalez MD Primary Care Provider Abbey Castano LEADERSHIP DEVELOPMENT INSTRUCTOR Unavailable Unavailable Reason for Visit * Reason Comments Chest Pain * Authorization/Certification (Routine) Specialty Diagnoses / Procedures Referred By Contac t Referred To Contact Diagnoses Hypertensive urgency Referral ID Status Reason Start Date Expiration Date Visits Re quested Visits Authorized [id number] 1 1 Encounter Details Date Type Department Care Team (Late st Contact Info) Description 02/22/2024 11:26 AM MIXOLOGIST - 02/24/2024 2:15 PM MIXOLOGIST Emergency [address] Cardiac Medical [address] [place] [address] Criss Leyva DO [address] [place] [address] Christy Gonzalez MD [address] [address] Reyna Avendano MD [address] [place] [address] Virginie Richmond RN Pearson, Cortney, RN Thao, Via X, RN [address] [place] [address] Adriana Tierney, Mary oJ Johnson MD [address] [place] [address] Jessica Stauffer, LEIF Reynolds, Leona Bajwa, Anastasiya Mcclendon, Martin Vasquez RN Nunez, Anacecilia, LPN Reyes, Raisa, Margaret Harrington, Roxana Martinez, LEADERSHIP DEVELOPMENT INSTRUCTOR Edilma Ghosh, Lazara Sam, Adonay Pennington CNA Clemens, Alexa Abraham, LEIF Landa, Love Mason, MARGUERITE Discharge Disposition: Home or Self Care Allergies Active Allergy Reactions Criticality Noted Date Comments Pollen Low 07/06/2011 Statins MYALGIA Medium 09/10/2015 Added per MD notation that he cannot tolerate statins for treatment documented as of this encounter (statuses as of 02/24/2024) Medications Medication Sig Dispensed Refills Start Date End Date Status calcium carbonate (TUMS) 500 MG chewable tablet Chew 1 tablet by mouth as needed for Heartburn. Active albuterol (ProAir HFA) 108 (90 Base) MCG/ACT inhalerIndicatio ns:Asthma Inhale 2 puffs into the lungs every 4 hours as needed for Shortness of Breath or Wheezing. 8.5 g 1 3 Active aspirin (ECOTRIN) 81 MG EC tabletIndication s:Atheroscleroti c Disease Take 1 tablet by mouth daily. 15 tablet 1 3 Active carvedilol (COREG) 12.5 MG tabletIndication s:Hypertension Take 1 tablet by mouth every 12 hours. 30 tablet 1 3 Active hydroCORTisone (CORTIZONE) 1 % cream Apply topically 2 times daily as needed (rash). 28 g 3 Active spironolactone (ALDACTONE) 25 MG tabletIndication s:Hypertension Take 1 tablet by mouth daily. 15 tablet 1 3 Active ARIPiprazole (ABILIFY) 10 MG tabletIndication s:Mixed Bipolar Affective Disorder Indications: MIXED BIPOLAR AFFECTIVE DISORDER 0.5 tab q am x one week then 1 tab q am thereafter. 30 tablet 5 4 Active Additional Information Patient taking differently: 10 mg Oral DAILY, (No instructions reported), Indications: Mixed Bipolar Affective Disorder, Informant: Self, Reported on 02/22/2024 escitalopram (LEXAPRO) 20 MG tabletIndication s:Obsessive Compulsive Disorder Take 1 tablet by mouth daily. Indications: Obsessive Compulsive Disorder 30 tablet 5 4 Active QUEtiapine (SEROquel) 50 MG tabletIndication s:Bipolar Mood Disorder Take 1 tablet by mouth at bedtime. Indications: Manic-Depression 30 tablet 5 4 Active atorvastatin (LIPITOR) 80 MG tablet Take 80 mg by mouth at bedtime. 4 Active ezetimibe (ZETIA) 10 MG tablet Take 10 mg by mouth at bedtime. 4 Active losartan (COZAAR) 50 MG tablet Take 50 mg by mouth daily. 4 Active ranolazine (RANEXA) 500 MG 12 hr tablet Take 500 mg by mouth in the morning and 500 mg in the evening. 4 Active clopidogrel (PLAVIX) 75 MG tablet Take 1 tablet by mouth daily. 90 tablet 3 4 02/19/20 25 Active nicotine (NICODERM) 21 MG/24HR patch Place 1 patch onto the skin daily. 30 patch 11 3 02/22/20 24 Discontinued(Med List Clean up - No Rx eCancel Message Sent) amLODIPine (NORVASC) 10 MG tabletIndication s:Hypertension Take 1 tablet by mouth daily. 15 tablet 1 3 02/23/20 24 Discontinued(Sto p Taking at Discharge) isosorbide mononitrate (IMDUR) 30 MG 24 hr tabletIndication s:Stable Angina Pectoris Take 1 tablet by mouth daily. 15 tablet 1 3 02/23/20 24 Discontinued(Sto p Taking at Discharge) pantoprazole (PROTONIX) 40 MG tabletIndication s:Gastroesophage al Reflux Disease Take 1 tablet by mouth nightly. 15 tablet 1 3 02/22/20 24 Discontinued(Med List Clean up - No Rx eCancel Message Sent) clopidogrel (PLAVIX) 75 MG tablet Take 75 mg by mouth daily. 4 02/24/20 24 Discontinued pantoprazole (PROTONIX) 40 MG tablet Take 40 mg by mouth daily. 02/22/20 24 Discontinued(Err or) documented as of this encounter (statuses as of 02/24/2024) Active Problems Problem Noted Date Diagnosed Date History of attention deficit hyperactivity disor hilda (ADHD) 03/10/2023 Bipolar disorder, curr episo de mixed, severe, with psychotic features (CMD) 03/10/2023 Chest pain, unspecified type 02/17/2023 Hypertensive urgency 12/17/2022 Pleural effusion, bilateral 04/25/2022 S/P CABG x 3 04/13/2022 ACS (acute coronary syndrome) (CMD) 04/10/2022 Syncope and collapse 04/10/2020 Assessment & Plan (04/10/2020 1:59 PM MIXOLOGIST): He had 3 episodes of syncope in [...] 04/29/2015 Assessment & Plan (04/10/2020 1:53 PM MIXOLOGIST): Last echo 01/31/2020 with LVEF 57%. Continue current management. Obsessive compulsive disorder 04/16/2015 Coronary artery disease invo lving tunica-biloxi coronary artery of tunica-bil[place]i heart with angina pectoris (CMD) 10/24/2014 Overview (10/24/2014): s/p stent to lad Assessment & Plan (04/10/2020 1:52 PM MIXOLOGIST): Stable. Follow up by Dr. Mayen. Snoring 10/12/2011 Hypersomnolence 10/12/2011 Bronchial asthma (CMD) HTN (hypertension) Assessment & Plan (04/10/2020 1:52 PM MIXOLOGIST): Continue current management. Chronic low back pain Impaired fasting glucose Dyslipidemia Obesity SOB (shortness of breath) on exertion documented as of this encounter (statuses as of 02/24/2024) Resolved Problems Problem Noted Date Diagnosed Date Resolved Date Mood disorder (CMD) 02/21/2023 03/10/20 Moderate depressed bipolar I disorder (CMD) 05/15/2016 03/10/2023 ADD (attention deficit disor hilda) without hyperactivity 05/15/2016 03/10/2023 documented as of this encounter (statuses as of 02/24/2024) Immunizations Name Administration Dates Next Due COVID Pfizer 12Y+ (Requires Dilution) 01/17/2021 ,12/27/2020 Influenza, split virus, trivalent 12/29/2006,12/2003,01/16/2003 Tdap 11/06/2008 documented as of this encounter Social History Tobacco Use Types Packs/Day Years Used Date Smoking Tobacco: Every Day Cigarettes 0.6 73.9 Started: 1980 Smokeless Tobacco: Never Comments:About 4 [...] In the past 12 months has e [employer], gas, oil, or water company threatened to [...] phone, visiting friends or family, going to roman catholic or club meetings) Patient declined 02/23/2024 Alcohol [...] family and friends, physically hurt you? Never 02/23/2024 How often does anyone, robiraquel santiago family and friends, insult or talk down to you? Never 02/23/2024 How often does anyone, sen henderson family and friends, threaten you with harm? Never 02/23/2024 How often does anyone, sen henderson family and friends, scream or curse at you? Never 02/23/2024 Transportation Needs Answer Date Record ed In [...] Sign Reading Time Taken Comments Blood Pressure 122/69 02/24/2024 10:20 AM MIXOLOGIST Pulse 70 02/23/2024 10:51 PM MIXOLOGIST Temperature 36.5 C (97.7 F) 02/23/2024 10:50 PM MIXOLOGIST Respiratory Rate 18 02/23/2024 10:50 PM MIXOLOGIST Oxygen Saturation 94% 02/23/2024 10:50 PM MIXOLOGIST Inhaled Oxygen Concentration - - Weight 112.5 kg (248 lb) 02/23/2024 3:25 AM MIXOLOGIST Height 177.8 cm (5' 10) 02/23/2024 3:25 AM MIXOLOGIST Body Mass Index 35.58 02/23/2024 3:25 AM MIXOLOGIST documented in this encounter Functional Status Functional [...] 02/22/2024 documented as of this encounter Discharge Summaries * Christy Gonzalez MD - 02/23/2024 5:09 PM CST Physician Discharge Summary Patient ID: Johnny Garnett [id number] 53 year old 1970 Admit date: 02/22/2024 Discharge date and time: 02/24/2024 Admitting Physician: Christy Gnozalez MD Discharge Physician: Christy Gonzalez MD Admission Diagnoses: Bipolar depression (CMD) [F31.9] Hypertensive urgency [I16.0] Chest pain, unspecified type [R07.9] Discharge Diagnoses: Hypertensive urgency. Coronary artery disease Noncardiac chest pain. Bipolar disorder. Concurrent Diagnoses: Patient Active Problem List Diagnosis Bronchial asthma (CMD) HTN (hypertension) Chronic low back pain Impaired fasting glucose Dyslipidemia Obesity Snoring Hypersomnolence Coronary artery disease involving tunica-biloxi coronary artery of tunica-biloxi heart with angina pectoris (CMD) Obsessive compulsive [...] episode mixed, severe, with psychotic features (CMD) Admission Condition: fair Discharged Condition: stable Hospital Course: Johnny Garnett is a 53 year old y.o. male known to me with a history of coronary artery disease, bipolar disorder with most recent angioplasty and stenting of the proximal LAD stenosis with LV ejection fraction of 61%. [facility] 01/20/24: Conclusions 1. Successful IVUS guided PTCA/JOSESITO of proximal LAD with reduction in stenosis from 90% to 0%. Patient has a known history of coronary artery bypass grafting 04/13/2022: CARDIAC SURGERY OPERATIVE NOTE Patient Name: Johnny Garnett Date of : 1970 Date of Admit: 04/10/2022: Admitting MD: Laurie Vasquez MD Attending MD: Laurie Vasquez MD Referring MD: Amilcar Chris MD CSN: [id number] DATE OF PROCEDURE : 04/13/2022 OPERATIVE REPORT PREOPERATIVE DIAGNOSIS: Coronary artery disease POSTOPERATIVE DIAGNOSIS: Coronary artery disease PROCEDURE PERFORMED: 1.) Coronary artery bypass graft x 3, left internal mammary artery to LAD, saphenous vein graft to RPDA and saphenous vein graft to OM3 (LPDA) 2.) Endoscopic vein harvest 3.) left internal mammary artery harvest He has a history of uncontrolled hypertension. 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 He also has a history of bipolar disorder and feels like his symptoms are getting worse. He is suffering from PTSD and came into the hospital looking for inpatient hospitalization for bipolar disorder. Patient systolic blood pressures in the 200s. He does have atypical left-sided, left shoulder pain.High-sensitivity troponin was normal. Twelve-lead EKG shows normal sinus rhythm. Psychiatry servicehas been consulted. Patient is being admitted to the hospital for observation. Patient blood pressure improved with resumption of his antihypertensives. He was initially started on clonidine which was dropping his blood pressure too much. His clonidine was discontinued. Repeat troponins were negative. Patient was seen by psychiatry and is not a candidate for inpatient psych admission. He will be discharged home in stable condition. Compliance with medications has been encour aged, especially with his Plavix. He verbalizes understanding. Discharge Medications: Summary of your Discharge Medications Take these Medications Details albuterol 108 (90 Base) MCG/ACT inhaler Commonly known as: ProAir HFA Inhale 2 puffs into the lungs every 4 hours as needed for Shortness of Breath or Wheezing. ARIPiprazole 10 MG tablet Commonly known as: ABILIFY Indications: MIXED BIPOLAR AFFECTIVE DISORDER 0.5 tab q am x one week then 1 tab q am thereafter. aspirin 81 MG EC tablet Commonly known as: ECOTRIN Take 1 tablet by mouth daily. atorvastatin 80 MG tablet Commonly known as: LIPITOR Take 80 mg by mouth at bedtime. calcium carbonate 500 MG chewable tablet Commonly known as: TUMS Chew 1 tablet by mouth as needed for Heartburn. carvedilol 12.5 MG tablet Commonly known as: COREG Take 1 tablet by mouth every 12 hours. clopidogrel 75 MG tablet Commonly known as: PLAVIX Take 75 mg by mouth daily. escitalopram 20 MG tablet Commonly known as: LEXAPRO Take 1 tablet by mouth daily. Indications: Obsessive Compulsive Disorder Comment: Dosage increase. ezetimibe 10 MG tablet Commonly known as: ZETIA Take 10 mg by mouth at bedtime. hydroCORTisone 1 % cream Commonly known as: CORTIZONE Apply topically 2 times daily as needed (rash). losartan 50 MG tablet Commonly known as: COZAAR Take 50 mg by mouth daily. QUEtiapine 50 MG tablet Commonly known as: SEROquel Take 1 tablet by mouth at bedtime. Indications: Manic-Depression ranolazine 500 MG 12 hr tablet Commonly known as: RANEXA Take 500 mg by mouth in the morning and 500 mg in the evening. spironolactone 25 MG tablet Commonly known as: ALDACTONE Take 1 tablet by mouth daily. Consults: Psychiatry: Dr Pino Discharge Labs: Recent Labs Lab 02/23/24 0333 02/22/24 1202 02/22/24 1156 SODIUM -- -- 138 POTASSIUM 4.4 -- 3.9 CHLORIDE -- -- 104 CO2 -- -- 26 BUN -- -- 6 CREATININE -- 0.90 0.82 GLUCOSE -- -- 88 WBC -- -- 8.7 HGB -- -- 16.7 HCT -- -- 49.0 PLT -- -- 207 Significant Diagnostic Studies and Procedures: XR CHEST PA OR AP 1 VIEW Final Result by Ksenia Owens MD (02/21 517) IMPRESSION: No acute cardiopulmonary findings. Stable postoperative changes. I, Attending Radiologist Ksenia Owens MD, have reviewed the images and report and concur with these findings interpreted by Resident Radiologist, Haaj Saleh DO. Electronically Signed by: Ksenia Owens MD Signed on: 02/22/2024 12:25 PM Created on Workstation ID: [id number] Signed on Workstation ID: [id number] Please review complete radiology reports in the imaging section for EPIC) Discharge Exam: Blood pressure 102/62, pulse 95, temperature 97.7 ??F (36.5 ??C), temperature source Oral, resp. rate 17, height 5' 10 (1.778 m), weight 112.5 kg (248 lb), SpO2 95%. General appearance - alert and in no distress Neck - supple and no adenopathy Lungs - clear to auscultation Heart - normal, regular rate and rhythm, no murmur noted Abd - soft and non-tender. Non-distended. BS audible Ext - no edema Disposition: Home Patient Instructions: Activity: As tolerated Diet: Low cholesterol diet Code status: Full Resuscitation Recent Labs Lab 02/22/24 1156 WBC 8.7 HGB 16.7 HCT 49.0 PLT 207 Recent Labs Lab 02/23/24 0333 02/22/24 1202 02/22/24 1156 SODIUM -- -- 138 POTASSIUM 4.4 -- 3.9 BUN -- -- 6 CREATININE -- 0.90 0.82 GLUCOSE -- -- 88 CALCIUM -- -- 9.1 ALBUMIN -- -- 3.8 AST -- -- 26 GPT -- -- 46 ALKPT -- -- 100 BILIRUBIN -- -- 0.5 NTPROB -- -- 445* No results found for: VANCR, VANCT, VANCP Patients's last HBA1C reading was Hemoglobin A1C (%) Date Value 12/20/2022 5.5 No results found No results found No results found Recent Labs Lab 02/22/24 1156 AST 26 GPT 46 ALKPT 100 BILIRUBIN 0.5 No results found Recent Labs Lab 02/22/24 1125 QTC 455 No results found No results found Invalid input(s): VCY195P, BPARA, RPA3, RFUB, RRSSVA Follow-up with Dr Gonzalez in 1-2 weeks Discharge instructions explained to patient. Pt expressed understanding and agreement with plan of care and discharge. Questions answered to the best of my knowledge and to the patient's expressed satisfaction. Signed: Christy Gonzalez MD 02/23/2024 5:09 PM LOGIST documented in this encounter Discharge Instructions * Discharge Instructions* Maggie Pino MD - 02/23/2024 11:44 AM MIXOLOGIST Discharge Instructions/Information: Please attend all follow-up clinic appointments as scheduled. Do no harm to yourself or others. Avoid alcohol and drugs. Take all medications as prescribed. Please contact your outpatient physician/clinic with any questions. In the event you have a personal crisis, contact your outpatient care team, call the [facility] Crisis Line at [phone], call 911, go to your nearest hospital emergency department, or go [facility] ([address] [address]). See additional resources below. [facility] Crisis Resources Crisis Line: [phone] (Call 19/10) [facility] Access Clinics (3 locations): For individuals over the age of 18, entirely unconnected with outpatient psychiatric services, voluntarily seeking care on an outpatient basis. Clinic serves uninsured and underinsured patients. Patients should bring a [facility] ID. No appointment necessary, new patients should arrive by 2:00PM and will be seen in the order of their arrival. Clinic is unable to provide same-day medications to patients. North ([address])-- [phone] East ([address] [facility])-- [phone] South ([address])-- [phone] Crisis Resource Centers: The [facility] is a safe place where individuals who may be experiencing a psychiatric crisis can voluntarily access crisis intervention services. Open 19/10. [facility]: [address] [place] [address] [facility]: [address] [address] [facility]: [address] National Suicide Prevention Lifeline: 9-8-8 (Call 19/10) SAMHSA (Substance Abuse and Mental Health Services Administration) National Hotline: (Call 19/10) Warm Line: A safe, confidential, non-crisis, supportive line for individuals dealing with mental health or substance abuse challenges. Staffed by trained peer counselors who have lived experience with mental illness or substance abuse, Warmline phone lines are available Wednesday, Wednesday, Wednesday, Wednesday and Wednesday from 6 pm to 10 pm. Area Outpatient Psychiatry/Psychotherapy Resources The following is a list of mental health clinics in the area which may be accepting new patients. Please note: Accepted insurances may change. Please check with your insurance company or the clinic listed below to verify which mental health providers are in network. [facility] (at [facility]) [address] [place] [address] (intake line, leave voicemail) *[facility] Dept. of Psychiatry clinic, medication management + psychotherapy [facility] [address] [address] Accept Medicare, Medicaid and Sliding Fee Psychiatrists and Therapists. Website: www.RoosterBiaspirus iron river hospitalAyeah Games [facility] (3 Locations) Accept Medicare, Medicaid and Sliding Fee Psychiatrists and Therapists at all locations. Website: https://americanbehavioralclinics.Decision Curve/ [address] [place] [address] [place] [address] [place] [address] [facility] [address] [place] [address] / [phone] Accept Medicare, Medicaid and Sliding Fee Psychiatrists and Therapists Website:www.[facility].org/services/familysocial/index.asp [facility] [address] [address] Accept Medicare, Medicaid & Sliding Fee Only have Therapists Website: www.[facility].org [facility] (10 Locations in [facility]) All locations admission number: [phone] Accept Medicaid, Medicare and Sliding Fee Psychiatrists and Therapists Website: http://www.[facility].Decision Curve/ locations-staff/valencia.htm [employer] (3 Locations) Accept Medicaid and Medicare Psychiatrists and Therapists. Website: https://www.Enlivex Therapeutics/ [address] [facility], [address], [place] [address] / [phone] [address] [facility], [address], [place] [address] / [phone] [place] [address], [address], [place] [address] / [phone] [facility] [address] [place] [address] / [phone] Accept Medicaid, Medicare and Sliding fee Psychiatrists and Therapists. Website: https://glic.net/ [facility] [address] [place] [address] / [phone] Accept Commercial Insurance or Self Pay Only Psychiatrists and Therapists. Website:http://www.NovaDigm Therapeuticsascension st. luke's sleep centererforpsychiatry.com/ [facility] (7 Locations total in [facility]) Accepts Medicaid and Medicare Only medication management Website: https://WaterplayUSA.Decision Curve/ [address] [place] [address] [address] [facility], [address] [address] [place] [address] [address] [place] [address] [address] [place] [address] [facility][1] [address] [place], [place] [id number] Accept Medicaid, Medicare, and Sliding Fee Psychiatrists and Therapists Website: www.jfsmilw.org [facility] (3 Locations) Accept Medicaid and Medicare, no sliding fee Psychiatrists and Therapists Website: http://Zentrick/ [address] [facility] [address], [place] [address] [address] [place] [address] [address] [facility] [address] [address] [facility], [address] [address] / Fees are determined by ability to apy Therapists Only Website: https://www.[facility]/psychology/ xlafuy-typ-mxwwwuoznadim-services.php [facility] [address], [place] [address] / [phone] [address] Accept Medicaid, Medicare and Sliding Scale Psychiatrists and Therapists Website: https://mhsi.org/services/eqkwhvhseu-ewjspo-mrfkbxaq/ [facility] [address], [place], [place] [address] Accept Medicaid and Medicare, no sliding fee Therapists only Website: https://msclinicalservices.Greenhouse Apps.Decision Curve/msclinical Outreach [address] [address] Accept Medicaid, Medicare and Sliding Fee Psychiatrists and Therapists Website: https://www.[facility].org/ [facility] [address], [address], [place] [address] / [phone] Accept Medicare, Medicare and Sliding Fee Psychiatrists and Therapists Website: www.psgcip.Decision Curve [facility] [address], [address], [place] [address] / [phone] Accept Medicaid, Medicare and Sliding Fee Psychiatrists and Therapists http://www.Sophia SearchtSeaDragon Software/ [facility] (2 Locations) Accepts Medicaid, Medicare and Sliding Scale Psychiatrists and Therapists https://www.Cogenics/ [address], [place] [address] / [phone] [address] [place] [address] / [phone] [facility] [address] [facility], [address] [place] [address] / [phone] Accept Title Medicaid, Medicare and Sliding Fee Website: https://www.Quviumsamaritan healthcare.WeatherBug/ [facility] [address] [place] [address] Accept Medicaid and Sliding Scale Psychiatrists and Therapists Website: http://DealerRaterWorldrat.Decision Curve/index.html [facility] (3 Locations) All location admissions: [phone] Accepts Medicaid, Medicare and Sliding Fee Psychiatrists and Therapists Website: http://Learning HyperdriveTolven Inc. [address] [facility], [address] [place] [address] [address] [facility], [address] [place] [address] [address] [facility], [address] [place] [address] [facility] All locations admission: [phone] Accept Medicaid, Medicare and Sliding Fee Psychiatrists and Therapists Website: www.[facility].org [facility] [address] [place] [address] [facility] [address] [place] [address] [facility] [address] [facility] [address] [place] [address] [facility] [address] [place] [address] Accept Medicaid, Medicare and Sliding Fee Psychiatrists Website: https://www.Genesys Systems/ [facility], Room [address] [place] [address] Accept Sliding Scale Therapists Only Websites: https://[facility]/psychology/clinic/ [facility] [address] [place] [address] [address] [address] Accepts Medicaid, Medicare Psychiatrists and Therapists Website: https://www.[facility].org/health -care-services/jhjyotfaoo-hkgkhy-022 LOGIST documented in this encounter Ordered Prescriptions Prescription Sig Dispensed Refills Start Date End Da te clopidogrel (PLAVIX) 75 MG tablet Take 1 tablet by mouth daily. 90 tablet 3 02/24/2024 02/18/2025 documented in this encounter Progress Notes * Alexa Majano RN - 02/24/2024 2:15 PM CST Johnny Garnett discharged to home. Ride set up through . Patient provided with the following educational materials upon discharge: Crisis resources and hotlines. Valuables and belongings sent withpatient. discharge summary, discharge instructions, medications, and follow up appointments reviewed with patient. Patient verbalized understanding. Medications from security returned to patient prior to DC. LOGIST * Alexa Majano RN - 02/24/2024 11:41 AM CST Patient stating Plavix was prescribed in a different state while he was on the road for his [place] job. Patient has been unable to obtain prescription in [place]. Dr. Gonzalez paged for prescription given recent stent placement. LOGIST * Alexa Majano RN - 02/24/2024 9:52 AM CST Patient expressing concern with leaving hospital and doing PHP instead of inpatient behavioral health program. Patient contacted [facility] this morning and was told the recommendation was for PHP or IOP. Patient stated prior to hospitalization when he spoke with his psychiatrist he was told he would be able to go to inpatient. Patient expressing concern with violent dreams and waking up and being in the middle of violent behavior. Given patient safety concern advertising writer reached out to patient's psychiatrist Dr. Sommer. Per Dr. Sommer,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 Filed Values None Therapy Recommendations for Discharge: PT: Last Filed Values None OT: Last Filed Values None COAL PASSER: Last Filed Values None Insurance Primary: NARVAEZ Secondary: N/A Disposition Recommendations: SW/CM recommendation for discharge: OP therapy LOGIST * PLAN OF CARE - Raisa Howard RN - 02/23/2024 12:15 PM CST Patient blood pressures soft this am. MD Gonzalez made changes to medications. Nursing to continue to monitor. Problem: Pain Goal: Acceptable pain level achieved/maintained at rest using appropriate pain scale for the patient Outcome: Monitoring/Evaluating progress LOGIST documented in this encounter Plan of Treatment Scheduled Orders Name Type Priority Associated Diagnoses Orde r Schedule Electrocardiogram 12-Lead EKG STAT If condition met for 1 Occurrences starting 02/22/2024 Health Maintenance Due Date Last Done Comments [...] Author Advance Directives General Yes Abbey Castano, LEADERSHIP DEVELOPMENT INSTRUCTOR Note: Honoring Choices document sent 02/03 documented as of this encounter Medical Devices Implanted Type Area Lawn Sprinkler Installer Device Identifier Shelf Expiration Date Model / Serial / Lot Cheshire Cv 1x1in Thk1.65mm Ptfe Patch Strl Lf - S. Implanted:Qty: 1 on 04/13/2022 by Javon Marquis MD at [facility] Graft N/A: Chest BD [employer] [id number] 11/23/2026 [id number] / . / [id number] Clip Internal Sm Wide Ligate Horizon Ti - S. Implanted:Qty: 3 on 04/13/2022 by Javon Marquis MD at [facility] Other Implant N/A: Chest [employer] [id number] 10/27/2026 [id number] / . / [id number] Sponge Abs [id number] 12.5x8cm Porcine Geltn Strl Disp Surgfm - S. Implanted:Qty: 1 on 04/13/2022 by Javon Marquis MD at [facility] Other Implant N/A: Chest [employer] [id number] 11/03/2025 1974 / . / [id number] Clip Internal Med Chevron 24 Crtdg Ligate Triangulate Xsect - S. Implanted:Qty: 1 on 04/13/2022 by Javon Marquis MD at [facility] Other Implant N/A: Chest [employer] [id number] 11/23/2026 [id number] / . / [id number] Stent Resolute Intgr Microtrac 3.5mm 22mm - [id number] Implanted:Qty: 1 on 09/30/2014 by Bal Mayen MD at [facility] Stent Left Anterior Descending Artery [email or web address] . 07/04/2016 [id number] / / [id number] Description:Implant manufact urer/size/type and expiration date verified by proceduralist and procedure staff. Verification initials:cd/jk documented as of this encounter Procedures Procedure Name Priority Date/Time Associated Diagnosis Comments POTASSIUM Routine 02/23/2024 3:33 AM MIXOLOGIST DRUG SCREEN, URINE Routine 02/22/2024 11 :23 PM MIXOLOGIST TROPONIN I, HIGH SENSITIVITY Routine 02/22/2024 6:06 PM MIXOLOGIST XR CHEST AP OR PA STAT 02/22/2024 12: 16 PM MIXOLOGIST TROPONIN I POINT OF CARE Routine 024 12:10 PM MIXOLOGIST ISTAT CHEM8 - POINT OF CARE Routine 02/22/2024 12:02 PM MIXOLOGIST TROPONIN I, HIGH SENSITIVITY STAT 02/22/2024 11:56 AM MIXOLOGIST CBC WITH DIFFERENTIAL STAT 02/22/2024 11:56 AM MIXOLOGIST CBC WITH AUTOMATED DIFFERENTIAL (PERFORMABLE ONLY) STAT 02/22/2024 11:56 AM MIXOLOGIST COMPREHENSIVE METABOLIC PANEL STAT 02/22/2024 11:56 AM MIXOLOGIST NT PROBNP STAT 02/22/2024 11:56 AM MIXOLOGIST ELECTROCARDIOGRAM 12-LEAD STAT 2023 11:25 AM MIXOLOGIST documented in this encounter Results * Potassium (02/23/2024 3:33 AM MIXOLOGIST) Potassium 4.4 3.4 - 5.1 mmol/L 02/23/2024 4:08 AM MIXOLOGIST [facility] Blood VENOUS BLOOD SPECIMEN / Unknown Venipuncture / Unknown 02/23/2024 3:33 AM MIXOLOGIST 02/23/2024 3:46 AM MIXOLOGIST Christy Gonzalez MD BKR LAB BLOOD ORDERA BLES [facility] [address] [place] [address] * (ABNORMAL) Drug Abuse Screen, Urine (02/22/2024 11:23 PM MIXOLOGIST) [facility] Amphetamines, Urine Negative Negative 02/23/2024 12:06 AM [facility] Comment:Cutoff = 500 ng/mL Barbiturates, Urine Negative Negative 02/23/2024 12:06 AM [facility] Comment:Cutoff = 200 ng/mL Benzodiazepin es, Urine Negative Negative 02/23/2024 12:06 AM [facility] Comment:Cutoff = 200 ng/mL Cocaine/ Metabolite, Urine Negative Negative 02/23/2024 12:06 AM [facility] Comment:Cutoff = 150 ng/ml Opiates, Urine Positive(A) Negative 02/23/2024 12:06 AM [facility] Comment:Cutoff = 300 ng/mL Phencyclidine , Urine Negative Negative 02/23/2024 12:06 AM [facility] Comment:Cutoff = 25 ng/mL Cannabinoids, Urine Negative Negative 02/23/2024 12:06 AM [facility] Comment:Cutoff = 50 ng/mL Fentanyl, Urine Screen Negative Negative 02/23/2024 12:06 AM [facility] Comment:Cutoff = 1.0 ng/mL Urine URINE SPECIMEN OBTAINED BY CLEAN CATCH PROCEDURE / Unknown 02/22/2024 11:23 PM MIXOLOGIST 02/22/2024 11:29 PM MIXOLOGIST Narrative [facility] - 02/23/2024 12:06 AM MIXOLOGIST Drug screening is for medical purposes only. This is a screening assay only and false-positive or false-negative results can occur. A definitive confirmation by LC/MS may be ordered to confirm clinically questionable results. Christy Gonzalez MD BKR LAB URINE ORDERA BLES Performing Organization Address City/[facility]/ZIP Co de Phone Number [address] [address] * TROPONIN I, HIGH SENSITIVITY (02/22/2024 6:06 PM MIXOLOGIST) Troponin I, High Sensitivity 10 <77 ng/L 02/22/2024 6:41 PM MIXOLOGIST [facility] Blood VENOUS BLOOD SPECIMEN / Unknown Venipuncture / Unknown 02/22/2024 6:06 PM MIXOLOGIST 02/22/2024 6:09 PM MIXOLOGIST Christy Gonzalez MD BKR LAB BLOOD ORDERA BLES Performing Organization Address [facility] Co de Phone Number [address] [address] * XR CHEST PA OR AP 1 VIEW (02/22/2024 12:16 PM MIXOLOGIST) Anatomical Region Laterality Modality Chest/Thorax N/A Digital Radiogra phy 02/22/2024 12:2 2 PM MIXOLOGIST Impressions 02/22/2024 12:25 PM MIXOLOGIST IMPRESSION: No acute cardiopulmonary findings. Stable postoperative changes. I, Attending Radiologist Ksenia Owens MD, have reviewed the images and report and concur with these findings interpreted by Resident Radiologist, Haja Saleh DO. Electronically Signed by: Ksenia Owens MD Signed on: 02/22/2024 12:25 PM Created on Workstation ID: [id number] Signed on Workstation ID: [id number] Narrative 02/22/2024 12:25 PM MIXOLOGIST EXAM: XR CHEST AP OR PA HISTORY: Chest Pain COMPARISON: Chest radiograph 02/17/2023 TECHNIQUE: Single, AP upright view of the chest. FINDINGS: Postoperative changes of myocardial revascularization. Cardiomediastinal contours are normal. Pulmonary vasculature is distributed normally. No consolidation. No pleural effusion or pneumothorax. Procedure Note Ksenia Owens MD - 02/22/2024 EXAM: XR CHEST AP OR PA HISTORY: Chest Pain COMPARISON: Chest radiograph 02/17/2023 TECHNIQUE: Single, AP upright view of the chest. FINDINGS: Postoperative changes of myocardial revascularization. Cardiomediastinal contours are normal. Pulmonary vasculature isdistributed normally. No consolidation. No pleural effusion or pneumothorax. IMPRESSION: No acute cardiopulmonary findings. Stable postoperative changes. I, Attending Radiologist Ksenia Owens MD, have reviewed theimages and report and concur with these findings interpreted by Resident Radiologist, Haja Saleh DO. Electronically Signed by: Ksenia Owens MD Signed on: 02/22/2024 12:25 PM Created on Workstation ID: [id number] Signed on Workstation ID: [id number] Criss Leyva DO IMG XR PROCEDURES * (ABNORMAL) TROPONIN I POINT OF CARE (02/22/2024 12:10 PM MIXOLOGIST) TROPONIN I - POINT OF CARE 0.40(H) <0.10 ng/mL 02/22/2024 12:10 PM MIXOLOGIST [facility] Blood BLOOD SPECIMEN / Unknown 02/22/2024 12:10 PM MIXOLOGIST 02/22/2024 12:12 PM MIXOLOGIST Criss Leyva DO BKR LAB PT OF CARE [facility] [address] [place] [id number] * (ABNORMAL) ISTAT8 VENOUS POINT OF CARE (02/22/2024 12:02 PM MIXOLOGIST) BUN - POINT OF CARE 5(L) 6 - 20 mg/dL 02/22/2024 12:02 PM MIXOLOGIST [facility] SODIUM - POINT OF CARE 135 135 - 145 mmol/L 02/22/2024 12:02 PM [facility] POTASSIUM - POINT OF CARE 4.2 3.4 - 5.1 mmol/L 02/22/2024 12:02 PM [facility] CHLORIDE - POINT OF CARE 105 97 - 110 mmol/L 02/22/2024 12:02 PM [facility] TCO2 - POINT OF CARE 23 19 - 24 mmol/L 02/22/2024 12:02 PM [facility] ANION GAP - POINT OF CARE 11 7 - 19 mmol/L 02/22/2024 12:02 PM [facility] HEMATOCRIT - POINT OF CARE 50.0 39.0 - 51.0 % 02/22/2024 12:02 PM [facility] HEMOGLOBIN - POINT OF CARE 17.0 13.0 - 17.0 g/dL 02/22/2024 12:02 PM [facility] GLUCOSE - POINT OF CARE 90 70 - 99 mg/dL 02/22/2024 12:02 PM [facility] CALCIUM, IONIZED - POINT OF CARE 0.90(L) 1.15 - 1.29 mmol/L 02/22/2024 12:02 PM [facility] Creatinine 0.90 0.67 - 1.17 mg/dL 02/22/2024 12:02 PM [facility] Glomerular Filtration Rate >90 >=60 02/22/2024 12:02 PM [facility] Comment:eGFR results = or >6 0 mL/min/1.73m2 = Normal kidney function. Estimated GFR calculated using the CKD-EPI-R (2020) equation that does not include race in the creatinine calculation. Blood BLOOD SPECIMEN / Unknown 02/22/2024 12:02 PM MIXOLOGIST 02/22/2024 12:06 PM MIXOLOGIST Criss SCHMITTR LAB PT OF CARE T [facility] [address] [place] [id number] * (ABNORMAL) CBC with Automated Differential (performable only) (02/22/2024 11:56 AM MIXOLOGIST) WBC 8.7 4.2 - 11.0 K/mcL 02/22/2024 12:08 PM [facility] RBC 5.93(H) 4.50 - 5.90 mil/mcL 02/22/2024 12:08 PM [facility] HGB 16.7 13.0 - 17.0 g/dL 02/22/2024 12:08 PM [facility] HCT 49.0 39.0 - 51.0 % 02/22/2024 12:08 PM [facility] MCV 82.6 78.0 - 100.0 fl 02/22/2024 12:08 PM [facility] MCH 28.2 26.0 - 34.0 pg 02/22/2024 12:08 PM [facility] MCHC 34.1 32.0 - 36.5 g/dL 02/22/2024 12:08 PM [facility] RDW-CV 13.0 11.0 - 15.0 % 02/22/2024 12:08 PM [facility] RDW-SD 39.0 39.0 - 50.0 fL 02/22/2024 12:08 PM [facility] PLT 207 140 - 450 K/mcL 02/22/2024 12:08 PM [facility] NRBC 0 <=0 /100 WBC 02/22/2024 12:08 PM [facility] Neutrophil, Percent 63 % 02/22/2024 12:08 PM [facility] Lymphocytes, Percent 25 % 02/22/2024 12:08 PM [facility] Braxton, Percent 9 % 02/22/2024 12:08 PM [facility] Eosinophils, Percent 2 % 02/22/2024 12:08 PM [facility] Basophils, Percent 1 % 02/22/2024 12:08 PM [facility] Immature Granulocytes 0 % 02/22/2024 12:08 PM [facility] Absolute Neutrophils 5.5 1.8 - 7.7 K/mcL 02/22/2024 12:08 PM [facility] Absolute Lymphocytes 2.2 1.0 - 4.0 K/mcL 02/22/2024 12:08 PM MIXOLOGIST [facility] Absolute Monocytes 0.8 0.3 - 0.9 K/mcL 02/22/2024 12:08 PM [facility] Absolute Eosinophils 0.2 0.0 - 0.5 K/[facility] 02/22/2024 12:08 PM [facility] Absolute Basophils 0.1 0.0 - 0.3 K/[facility] 02/22/2024 12:08 PM MIXOLOGIST [facility] Absolute Immature Granulocytes 0.0 0.0 - 0.2 K/[facility] 02/22/2024 12:08 PM [facility] Blood VENOUS BLOOD SPECIMEN / Unknown Venipuncture / Unknown 02/22/2024 11:56 AM MIXOLOGIST 02/22/2024 12:00 PM MIXOLOGIST Criss Leyva DO BKR LAB BLOOD ORDERA BLES [address] [address] * (ABNORMAL) NT proBNP (02/22/2024 11:56 AM MIXOLOGIST) Pathologist [facility] NT-proBNP 445(H) <=125 pg/mL 02/22/2024 12:37 PM [facility] Blood VENOUS BLOOD SPECIMEN / Unknown Venipuncture / Unknown 02/22/2024 11:56 AM MIXOLOGIST 02/22/2024 12:00 PM MIXOLOGIST Criss Leyva DO BKR LAB BLOOD ORDERA BLES [address] [address] * TROPONIN I, HIGH SENSITIVITY (02/22/2024 11:56 AM MIXOLOGIST) Pathologist [facility] Troponin I, High Sensitivity 12 <77 ng/L 02/22/2024 12:37 PM [facility] Blood VENOUS BLOOD SPECIMEN / Unknown Venipuncture / Unknown 02/22/2024 11:56 AM MIXOLOGIST 02/22/2024 12:00 PM MIXOLOGIST Criss Leyva BKR LAB BLOOD ORDERA BLES [facility] [address] [place] [phone] * (ABNORMAL) Comprehensive Metabolic Panel (02/22/2024 11:56 AM MIXOLOGIST) Fasting Status 02/22/2024 12:37 PM [facility] Sodium 138 135 - 145 mmol/L 02/22/2024 12:37 PM [facility] Potassium 3.9 3.4 - 5.1 mmol/L 02/22/2024 12:37 PM [facility] Comment:Slight hemolysis, re sult may be falsely increased. Chloride 104 97 - 110 mmol/L 02/22/2024 12:37 PM [facility] Carbon Dioxide 26 21 - 32 mmol/L 02/22/2024 12:37 PM [facility] Anion Gap 12 7 - 19 mmol/L 02/22/2024 12:37 PM [facility] Glucose 88 70 - 99 mg/dL 02/22/2024 12:37 PM [facility] BUN 6 6 - 20 mg/dL 02/22/2024 12:37 PM [facility] Creatinine 0.82 0.67 - 1.17 mg/dL 02/22/2024 12:37 PM [facility] Glomerular Filtration Rate >90 >=60 02/22/2024 12:37 PM [facility] Comment:eGFR results = or >6 0 mL/min/1.73m2 = Normal kidney function. Estimated GFR calculated using the CKD-EPI-R (2020) equation that does not include race in the creatinine calculation. BUN/Cr 7 7 - 25 02/22/2024 12:37 PM [facility] Calcium 9.1 8.4 - 10.2 mg/dL 02/22/2024 12:37 PM [facility] Bilirubin, Total 0.5 0.2 - 1.0 mg/dL 02/22/2024 12:37 PM [facility] GOT/AST 26 <=37 Units/L 02/22/2024 12:37 PM [facility] Comment:Slight hemolysis, re sult may be falsely increased. GPT/ALT 46 <64 Units/L 02/22/2024 12:37 PM [facility] Alkaline Phosphatase 100 45 - 117 Units/L 02/22/2024 12:37 PM [facility] Albumin 3.8 3.4 - 5.0 g/dL 02/22/2024 12:37 PM [facility] Protein, Total 8.1 6.4 - 8.2 g/dL 02/22/2024 12:37 PM [facility] Globulin 4.3(H) 2.0 - 4.0 g/dL 02/22/2024 12:37 PM [facility] A/G Ratio 0.9(L) 1.0 - 2.4 02/22/2024 12:37 PM [facility] Blood VENOUS BLOOD SPECIMEN / Unknown Venipuncture / Unknown 02/22/2024 11:56 AM MIXOLOGIST 02/22/2024 12:00 PM [facility] [[email or web address]] Criss Leyva DO BKR LAB BLOOD ORDERA BLES [facility] [address] [place] [address] * Electrocardiogram 12-Lead (02/22/2024 11:25 AM [facility] [[email or web address]]) Ventricular Rate EKG/Min (BPM) 91 MUSE Atrial Rate (BPM) 91 MUSE IL-Interval (MSEC) 148 MUSE QRS-Interval (MSEC) 86 MUSE QT-Interval (MSEC) 370 MUSE QTc 455 MUSE P [place] (Degrees) 49 MUSE T [place] (Degrees) 80 MUSE REPORT TEXT Normal sinus rhythm Possible Left atrial enlargement Septal infarct , age undetermined Abnormal ECG When compared with ECG of 20-FEB-2023 14:18, premature atrial complexes are no longer present Confirmed by Edie LEYVA, CRISS Torres ([id number]), editor greeting card Domo Freitas ([id number]) on 02/22/2024 11:44:01 AM MUSE 02/22/2024 11:2 5 AM MIXOLOGIST Criss Leyva DO ECG ORDERABLES MUSE documented in this encounter Visit Diagnoses Diagnosis Syncope and collapse- Primary Hypertensive urgency- Primary Unspecified essential hypertension Hypertensive urgency Unspecified essential hypertension Chest pain, unspecified type Bipolar depression (CMD) Bipolar I disorder, most recent episode (or current) depressed, unspecified PTSD (post-traumatic stress disorder) [F43.10] Posttraumatic stress disorder documented in this encounter Administered Medications Inactive Administered Medications - up to 1 most recent administrations Medication Order MAR Action Action Date Dose Rate Site ARIPiprazole (ABILIFY) tablet 10 mg 10 mg DAILY, Oral, First dose on Wed02/23/24 at 0900 Given 02/24/2024 9:07 AM MIXOLOGIST 10 mg aspirin (ECOTRIN) enteric coated tablet 81 mg 81 mg DAILY, Oral, First dose on Wed02/23/24 at 0900, Do not crush or chew. Given 02/24/2024 9:04 AM MIXOLOGIST 81 mg atorvastatin (LIPITOR) tablet 80 mg 80 mg AT BEDTIME, Oral, First dose on Wed02/22/24 at 2100, Avoid co-administration with grapefruit juice. Given 02/23/2024 9:02 PM MIXOLOGIST 80 mg carvedilol (COREG) tablet 12.5 mg 12.5 mg EVERY 12 HOURS SCHEDULED (2 times per day), Oral, First dose on Wed02/22/24 at 2100, Monitor BP / Check pulse before giving dose. Do NOT hold dose prior to surgery without a physician order., Hold for SBP less than: 90, Hold for HR less than: 50 Given 02/24/2024 9:04 AM MIXOLOGIST 12.5 mg cloNIDine (CATAPRES) tablet 0.1 mg 0.1 mg EVERY 12 HOURS SCHEDULED (2 times per day), Oral, First dose on Wed02/22/24 at 1857 Given 02/22/2024 7:39 PM MIXOLOGIST 0.1 mg clopidogrel (PLAVIX) tablet 75 mg 75 mg DAILY, Oral, First dose on Wed02/23/24 at 0900 Given 02/24/2024 9:04 AM MIXOLOGIST 75 mg escitalopram (LEXAPRO) tablet 20 mg 20 mg DAILY, Oral, First dose on Wed02/23/24 at 0900 Given 02/24/2024 9:04 AM MIXOLOGIST 20 mg ezetimibe (ZETIA) tablet 10 mg 10 mg AT BEDTIME, Oral, First dose on Wed02/22/24 at 2100 Given 02/23/2024 9:03 PM MIXOLOGIST 10 mg hydrALAZINE (APRESOLINE) injection 20 mg 20 mg EVERY 6 HOURS PRN, Intravenous, High Blood Pressure, for SBP>170, Starting on Wed02/22/24 at 1713, * Do NOT Refrigerate * Given 02/22/2024 6:10 PM MIXOLOGIST 20 mg labetalol (NORMODYNE) injection 10 mg 10 mg ONCE, Intravenous, On Wed02/22/24 at 1246, For 1 dose, Monitor BP / Check apical pulse prior to giving dose. Do NOT hold dose prior to surgery without a physician order. IV Push Administration Rate: 10 mg/min. * Protect from Light * Given 02/22/2024 12:53 PM MIXOLOGIST 10 mg labetalol (NORMODYNE) injection 10 mg 10 mg ONCE, Intravenous, On Wed02/22/24 at 1413, For 1 dose, Monitor BP / Check apical pulse prior to giving dose. Do NOT hold dose prior to surgery without a physician order. IV Push Administration Rate: 10 mg/min. * Protect from Light * Given 02/22/2024 2:17 PM MIXOLOGIST 10 mg LORazepam (ATIVAN) tablet 1 mg 1 mg ONCE, Oral, On Wed02/22/24 at 1326, For 1 dose Given 02/22/2024 2:03 PM MIXOLOGIST 1 mg morphine injection 2 mg 2 mg EVERY 3 HOURS PRN, Intravenous, Severe Pain, Starting on Wed02/22/24 at 1806, If an IV and an oral/IL medication are ordered PRN for the same pain severity, administer IV only if patient is NPO/if oral is not tolerated. Given 02/23/2024 10:42 AM MIXOLOGIST 2 mg nicotine (NICODERM) 21 MG/24HR patch 1 patch 1 patch DAILY, Transdermal, First dose on Wed02/23/24 at 0430, * Remove old patch before applying new patch * Apply patch to a clean dry hair-free area. Alternate the application site. * Patch contains metal and should be removed prior to MRI due to risk of ovalle * Patch Applied 02/24/2024 7:00 AM MIXOLOGIST 1 patch Arm, Right potassium CHLORIDE (KLOR-CON M) garrick ER tablet 40 mEq 40 mEq ONCE, Oral, On Wed02/22/24 at 1900, For 1 dose, Ordered placed per 3.6 - 4 mEq/L Potassium Replacement BPA. Do NOT crush or chew. Scored tablets may be split. Give with meals whenever possible to decrease GI effects. Given 02/22/2024 7:39 PM MIXOLOGIST 40 mEq QUEtiapine (SEROquel) tablet 50 mg 50 mg AT BEDTIME, Oral, First dose on Wed02/22/24 at 2100 Given 02/23/2024 9:03 PM MIXOLOGIST 50 mg ranolazine (RANEXA) 12 hr tablet 500 mg 500 mg 2 TIMES DAILY, Oral, First dose on Wed02/22/24 at 2100, Do not crush or chew. Given 02/24/2024 9:04 AM MIXOLOGIST 500 mg sodium chloride (NORMAL SALINE) 0.9 % bolus 500 mL 500 mL PRN, Intravenous, Administer over 30 Minutes, Other, Symptomatic hypotension, SBP less than 90 mmHg, Starting on Wed02/22/24 at 1752, Unless patient is actively being treated for CHF. New Bag 02/22/2024 10:43 PM MIXOLOGIST 500 mLs 999 mL/hr sodium chloride 0.9 % injection 10 mL 10 mL PRN, Intravenous, Flush, Starting on Wed02/22/24 at 1143, To flush tubing following intermittent infusions. sodium chloride 0.9 % injection 2 mL 2 mL EVERY 12 HOURS SCHEDULED (2 times per day), Intracatheter, First dose on Wed02/22/24 at 1344 Given 02/24/2024 9:05 AM MIXOLOGIST 2 mLs spironolactone (ALDACTONE) tablet 25 mg 25 mg DAILY, Oral, First dose on Wed02/23/24 at 0900 Given 02/24/2024 9:04 AM MIXOLOGIST 25 mg documented in this encounter Active and Recently Administered Medications Times are shown in MIXOLOGIST. Scheduled Medication Order 02/22/2024 02/23/2024 02/24/2024 amLODIPine (NORVASC) tablet 10 mg 10 mg DAILY, Oral, First dose on Wed02/23/24 at 0900, Avoid co-administration with grapefruit juice., On hold since Wed02/23/2024 at 0913 until manually unheld 09 (Held by provider - Provider: Christy Gonzalez MD - Reason: Change in vital signs)0940 (Not Given - Provider: Raisa Howard RN - Reason: Other) 0900 (Automatically Held - Provider: Christy Gonzalez MD)1625 (Unheld by provider - Provider: Discharge Provider, Automatic) ARIPiprazole (ABILIFY) tablet 10 mg 10 mg DAILY, Oral, First dose on Wed02/23/24 at 0900 1052 (Given - Provider: Raisa Howard RN) 0907 (Given - Provider: Alexa Majano, LEIF) aspirin (ECOTRIN) enteric coated tablet 81 mg 81 mg DAILY, Oral, First dose on Wed02/23/24 at 0900, Do not crush or chew. 0807 (Given - Provider: Raisa Howard RN) 0904 (Given - Provider: Alexa Majano, LEIF) atorvastatin (LIPITOR) tablet 80 mg 80 mg AT BEDTIME, Oral, First dose on Wed02/22/24 at 2100, Avoid co-administration with grapefruit juice. 2031 (Given - Provider: Jessica Stauffer RN) 2101 (Given - Provider: Jessica Stauffer, LEIF) carvedilol (COREG) tablet 12.5 mg 12.5 mg EVERY 12 HOURS SCHEDULED (2 times per day), Oral, First dose on Wed02/22/24 at 2100, Monitor BP / Check pulse before giving dose. Do NOT hold dose prior to surgery without a physician order., Hold for SBP less than: 90, Hold for HR less than: 50 2031 (Given - Provider: Jessica Stauffer RN) 131 (Given - Provider: Edilma Almaguer RN)210 (Given - Provider: Jessica Stauffer RN) 0904 (Given - Provider: Alexa Majano, LEIF) cloNIDine (CATAPRES) tablet 0.1 mg (CANCELED) 0.1 mg EVERY 12 HOURS SCHEDULED (2 times per day), Oral, First dose on Wed02/22/24 at 1857 1939 (Given - Provider: Shannan Brooks RN) 0941 (Not Given - Provider: Raisa Howard RN - Reason: Other) clopidogrel (PLAVIX) tablet 75 mg 75 mg DAILY, Oral, First dose on Wed02/23/24 at 0900 0807 (Given - Provider: Raisa Howard RN) 0904 (Given - Provider: Alexa Majano, LEIF) escitalopram (LEXAPRO) tablet 20 mg 20 mg DAILY, Oral, First dose on Wed02/23/24 at 0900 0807 (Given - Provider: Raisa Howard RN) 0904 (Given - Provider: Alexa Majano RN) ezetimibe (ZETIA) tablet 10 mg 10 mg AT BEDTIME, Oral, First dose on Wed02/22/24 at 2100 2032 (Given - Provider: Jessica Stauffer RN) 2103 (Given - Provider: Jessica Stauffer RN) heparin (porcine) injection 5,000 Units 5,000 Units EVERY 8 HOURS SCHEDULED (3 times per day), Subcutaneous, First dose on Wed02/22/24 at 2200 2100 (Not Given - Provider: Jessica Stauffer RN - Reason: Patient/family refused) 0531 (Not Given - Provider: Martin Lisa RN - Reason: Patient/family refused)1530 (Not Given - Provider: Edilma Almaguer RN - Reason: Patient/family refused)2100 (Not Given - Provider: Jessica Stauffer RN - Reason: Patient/family refused) 0511 (Not Given - Provider: Anastasiya Jay RN - Reason: Patient/family refused)1301 (Not Given - Provider: Alexa Majano RN - Reason: Patient/family refused) labetalol (NORMODYNE) injection 10 mg (COMPLETED) 10 mg ONCE, Intravenous, On Wed02/22/24 at 1246, For 1 dose, Monitor BP / Check apical pulse prior to giving dose. Do NOT hold dose prior to surgery without a physician order. IV Push Administration Rate: 10 mg/min. * Protect from Light * 1253 (Given - Provider: Virginie Richmond, LEIF) labetalol (NORMODYNE) injection 10 mg (COMPLETED) 10 mg ONCE, Intravenous, On Wed02/22/24 at 1413, For 1 dose, Monitor BP / Check apical pulse prior to giving dose. Do NOT hold dose prior to surgery without a physician order. IV Push Administration Rate: 10 mg/min. * Protect from Light * 1417 (Given - Provider: Virginie Richmond, LEIF) LORazepam (ATIVAN) tablet 1 mg (COMPLETED) 1 mg ONCE, Oral, On Wed02/22/24 at 1326, For 1 dose 1403 (Given - Provider: Virginie Richmond RN - Comment: [employer] student) Magnesium Standard Replacement Protocol Administer magnesium per [facility] approved protocol. nicotine (NICODERM) 21 MG/24HR patch 1 patch 1 patch DAILY, Transdermal, First dose on Wed02/23/24 at 0430, * Remove old patch before applying new patch * Apply patch to a clean dry hair-free area. Alternate the application site. * Patch contains metal and should be removed prior to MRI due to risk of ovalle * 0502 (Patch Applied - Provider: Martin Lisa RN)1640 (Patch Removed - Provider: Jessica Stauffer RN) 0700 (Patch Applied - Provider: Anastasiya Jay RN)1415 (Due: Patch Removed - Provider: Discharge Provider, Automatic - Comment: Time automatically adjusted from order being discontinued) potassium CHLORIDE (KLOR-CON M) garrick ER tablet 40 mEq (COMPLETED) 40 mEq ONCE, Oral, On Wed02/22/24 at 1900, For 1 dose, Ordered placed per 3.6 - 4 mEq/L Potassium Replacement BPA. Do NOT crush or chew. Scored tablets may be split. Give with meals whenever possible to decrease GI effects. 1938 (Given - Provider: Shannan Brooks RN) Potassium Replacement (Levels 3.6 - 4) Administer a total of 40 mEq potassium chloride for EACH potassium result of 3.6 - 4 mEq/L. Potassium Standard Replacement Protocol (Levels 3.5 and lower) Administer potassium per [facility] approved protocol for levels of 3.5 mEq/L and lower. QUEtiapine (SEROquel) tablet 50 mg 50 mg AT BEDTIME, Oral, First dose on Wed02/22/24 at 2100 2031 (Given - Provider: Jessica Stauffer RN) 2102 (Given - Provider: Jessica Stauffer RN) ranolazine (RANEXA) 12 hr tablet 500 mg 500 mg 2 TIMES DAILY, Oral, First dose on Wed02/22/24 at 2100, Do not crush or chew. 2036 (Given - Provider: Jessica Stauffer RN) 1312 (Given - Provider: Edilma Almaguer, LEIF)210 (Given - Provider: Jessica Stauffer RN) 0904 (Given - Provider: Alexa Majano RN) sodium chloride 0.9 % injection 2 mL 2 mL EVERY 12 HOURS SCHEDULED (2 times per day), Intracatheter, First dose on Wed02/22/24 at 1344 1944 (Given - Provider: Shannan Brooks RN)2031 (Given - Provider: Jessica Stauffer RN) 0900 (Given - Provider: Raisa Howard RN)2103 (Given - Provider: Jessica Stauffer RN) 0905 (Given - Provider: Alexa Majano, LEFI) spironolactone (ALDACTONE) tablet 25 mg 25 mg DAILY, Oral, First dose on Wed02/23/24 at 0900 1312 (Given - Provider: Edilma Almaguer RN) 0904 (Given - Provider: Aelxa Majano, LEIF) PRN Medication Order 02/22/2024 02/23/2024 02/24/2024 hydrALAZINE (APRESOLINE) injection 20 mg 20 mg EVERY 6 HOURS PRN, Intravenous, High Blood Pressure, for SBP>170, Starting on Wed02/22/24 at 1713, * Do NOT Refrigerate * 1810 (Given - Provider: Shannan Brooks RN) morphine injection 2 mg 2 mg EVERY 3 HOURS PRN, Intravenous, Severe Pain, Starting on Wed02/22/24 at 1806, If an IV and an oral/IL medication are ordered PRN for the same pain severity, administer IV only if patient is NPO/if oral is not tolerated. 1842 (Given - Provider: Shannan Brooks RN) 0352 (Given - Provider: Martin Lisa, LEIF)1042 (Given - Provider: Raisa Howard RN) sodium chloride (NORMAL SALINE) 0.9 % bolus 500 mL 500 mL PRN, Intravenous, Administer over 30 Minutes, Other, Symptomatic hypotension, SBP less than 90 mmHg, Starting on Wed02/22/24 at 1752, Unless patient is actively being treated for CHF. 2243 (New Bag - Provider: Jessica Stauffer, RN)2315 (Completed - Provider: Jessica Stauffer RN) sodium chloride 0.9 % injection 10 mL 10 mL PRN, Intravenous, Flush, Starting on Wed02/22/24 at 1143, To flush tubing following intermittent infusions. documented in this encounter Additional Health Concerns Assessment Noted Time PHQ-9 Depression Total Score: 17 024 8:08 PM MIXOLOGIST documented as of this encounter Advance Directives * Full Resuscitation (Latest Code Status on [...] Agents on File Name Relationship Healthcare Agent [facility] Dayanna Suad Garnett Daughter Health Care Agent Care Teams Landscape Crew Member Relationship Specialty Start Date End Date Christy Gonzalez MD [address] [address] PCP - General Internal Medicine 12/21/22 Abbey Castano MSW Bathroom Tiling Professional - Population Health Social Work 01/28/24 documented as of this encounter
--- OUTSIDE RECORDS SUMMARY | 2024-04-09 16:16 | XMS_ITS | Continuity of Care Document ---
Author Organization [facility] Address [address] [place] [address] Care Team Providers Care 3D Animator Name Role Phone EUGENE, DOMINIC Montes De Oca Primary Care Physician Encounter Date(s): 03/26/24 - 03/26/24 [facility] [address] [place] [address] Encounter Diagnosis Asthma(Discharge Diagnosis) - 03/26/24 Discharge [...] [81.0-97.0 fL] 82.2 fL (03/26/24 10:18 AM) Polk Auto [2.00-10.00 %] 9.50 % (03/26/24 10:18 [...] x10^3/uL] 1.79 x 10^3/uL (03/26/24 10:18 AM) Polk Number [0.00-1.00 x10^3/uL] 0.85 x1 0^3/uL (03/26/24 [...] performed by the method of Real-Time Reverse Admin Assistant-PCR. 2Interpretive Data: Random glucose >= 200 is [...] Up Care 03/26/2024 09:54:45 With:DOMINIC KNIGHT Address: [address] [place] [id number] When: Unknown Note * Carlos Elliott MD: PERFORM Event Display: ED/UC Note-Provider Authored Date: Encounter Type Emergency Basic Information Time Seen: [...] Result Date/Time WBC 9.0 x10^3/uL 03/26/2024 10:18 SCREEN STRETCHER RBC 5.28 x10^6/uL 03/26/2024 10:18 SCREEN STRETCHER Hgb 14.6 g/dL 03/26/2024 10:18 SCREEN STRETCHER HCT 43.40 % 03/26/2024 10:18 SCREEN STRETCHER Platelet 369 x10^3/uL 03/26/2024 10:18 SCREEN STRETCHER MCV 82.2 fL 03/26/2024 10:18 SCREEN STRETCHER MCH 27.7 pg 03/26/2024 10:18 SCREEN STRETCHER MCHC 33.6 g/dL 03/26/2024 10:18 SCREEN STRETCHER RDW 12.7 % 03/26/2024 10:18 SCREEN STRETCHER MPV 9.5 fL 03/26/2024 10:18 SCREEN STRETCHER Imm Gran % 0.70 % 03/26/2024 10:18 SCREEN STRETCHER Neutro Auto 66.90 % 03/26/2024 10:18 SCREEN STRETCHER Lymph Auto 19.90 % 03/26/2024 10:18 SCREEN STRETCHER Polk Auto 9.50 % 03/26/2024 10:18 SCREEN STRETCHER Eos Auto 2.40 % 03/26/2024 10:18 SCREEN STRETCHER Basophil Auto 0.60 % 03/26/2024 10:18 SCREEN STRETCHER Imm Gran # 0.06 x10^3/uL 03/26/2024 10:18 SCREEN STRETCHER Lymph Number 1.79 x10^3/uL 03/26/2024 10:18 SCREEN STRETCHER Polk Number 0.85 x10^3/uL 03/26/2024 10:18 SCREEN STRETCHER Eos Number 0.22 x10^3/uL 03/26/2024 10:18 SCREEN STRETCHER Baso Number 0.05 x10^3/uL 03/26/2024 10:18 SCREEN STRETCHER Neut Number 6.02 x10^3/uL 03/26/2024 10:18 SCREEN STRETCHER INR 0.9 03/26/2024 10:18 SCREEN STRETCHER Sodium Lvl 138 mmol/L 03/26/2024 10:18 SCREEN STRETCHER Potassium Lvl 5.2 mmol/L 03/26/2024 10:18 SCREEN STRETCHER Chloride 106 mmol/L 03/26/2024 10:18 SCREEN STRETCHER CO2 25 mmol/L 03/26/2024 10:18 SCREEN STRETCHER AGAP 7 mmol/L 03/26/2024 10:18 SCREEN STRETCHER BUN 17 mg/dL 03/26/2024 10:18 SCREEN STRETCHER Creatinine 1.06 mg/dL 03/26/2024 10:18 SCREEN STRETCHER Glucose Lvl 107 mg/dL 03/26/2024 10:18 SCREEN STRETCHER Calcium Lvl 8.4 mg/dL 03/26/2024 10:18 SCREEN STRETCHER NT-proBNP 323 pg/mL 03/26/2024 10:18 SCREEN STRETCHER eGFR CKD-EPI 83 mL/min/1.73m2 03/26/2024 10:18 SCREEN STRETCHER Troponin-I High Sensitivity 8 ng/L 03/26/2024 12:54 SCREEN STRETCHER Influenza A Homer NEGATIVE 03/26/2024 11:10 SCREEN STRETCHER Influenza B Homer NEGATIVE 03/26/2024 11:10 SCREEN STRETCHER RSV HOMER NEGATIVE 03/26/2024 11:10 SCREEN STRETCHER COVID19, SARS-CoV-2 Result NEGATIVE 03/26/2024 11:10 SCREEN STRETCHER Diagnostic Details XR Chest PA/LAT: XR Chest PA/LAT (03/26/24 10:03:00) EKG EKG interpreted by me.?? 10:11 AM.?? NSR.?? 61.?? Normal axis.?? No acute ST-T wave abnormalities. Medication Reconciliation Unchanged aspirin atorvastatinOral every day. carvedilol (carvedilol 12.5 mg oral tablet) clopidogrel (clopidogrel 75 mg oral tablet) Milligram Oral every day. HYDROcodone-acetaminophen (HYDROcodone-acetaminophen Tab [...] ??I therefore doubt that he has an MD.?? Patient continues to request morphine.?? I negotiated with him and I will give him ketorolac as well as IV acetaminophen.?? I will discharge him home.?? I told him to follow-up with his PMD. Follow Up Care With When Contact Information DOMINIC KNIGHT [address] [place] [address] Additional Instructions: Electronically Signed on 03/26/2024 02:34 PM Carlos Chanel MD * Carlos Elliott MD: PERFORM Event Display: ED/UC Note-Provider Authored Date: [id number] ?? The patient is able to stand and walk on it.?? However all your sexual partners tested and treated for STD EKG #1 interpreted by me.?? 10:11 AM.?? NSR.?? 61.?? No acute ST-T wave abnormalities. ?? EKG #2??interpreted by me??no acute changes. Electronically Signed on 03/26/2024 05:34 PM SCREEN STRETCHER Carlos Elliott MD XR Chest PA and Lateral * Jocelyne YADAV, Maris Shah: REVIEW Gavin Yoder: VERIFY, PERFORM Gavin Yoder: PERFORM, SIGN Gavin Yoder: SIGN Carlos Elliott MD: REVIEW Event Display: XR Chest PA/LAT Authored Date: Patient Care team information Care Team Personnel Name: DOMINIC KNIGHT Member Role: Primary Care Physician Address: [address] [place] [address] [place] Care Team Related Persons Name: KOBE NG Address: Home [address] [facility] [id number] Address: [address] [place] [address]
--- OUTSIDE RECORDS SUMMARY | 2024-04-09 16:17 | XMS_ITS | Encounter Summary ---
Author Organization [facility] Address [address] [place] [address] Care Team Providers Care Applied Behavior Specialist Name Role Phone Christy Gonzalez MD Primary Care Provider [phone] Abbey Castano INDUSTRIAL HEALTH ENGINEER Unavailable Unavailable Reason for Visit * Reason Comments Chest Pain Encounter Details Date Type Department Care Team (Late st Contact Info) Description 04/04/2024 8:13 PM TREE SHEAR OPERATOR - 04/04/2024 10:24 PM [facility] [address] [place] [address] Héctor Castillo MD [address] [place] [address] Chest pain in adult (Primary Dx) Discharge [...] phone, visiting friends or family, going to pentecostal or club meetings) Patient declined 02/23/2024 Alcohol [...] Comments Blood Pressure 160/90 04/04/2024 10:22 PM TREE SHEAR OPERATOR Pulse 67 04/04/2024 10:22 PM TREE SHEAR OPERATOR Temperature 36.4 C (97.5 F) 04/04/2024 6:19 PM TREE SHEAR OPERATOR Respiratory Rate 18 04/04/2024 10:22 PM TREE SHEAR OPERATOR Oxygen Saturation 94% 04/04/2024 10:22 PM TREE SHEAR OPERATOR Inhaled Oxygen Concentration - - Weight - [...] Care Everywhere. * Chest Pain, Uncertain Cause (Iranian) documented in this encounter Medications at Time of Discharge Medication Sig Dispensed Refills Start Date End Date QUEtiapine (SEROquel) 50 MG tabletIndications:Bipo lar Mood Disorder Take 1 tablet by mouth at bedtime. Indications: Manic-Depression 90 tablet 3 03/14/2024 escitalopram (LEXAPRO) 20 MG tabletIndications:Obse ssive Compulsive Disorder Take 1 tablet by mouth daily. Indications: Obsessive Compulsive Disorder 90 tablet 3 03/14/2024 ARIPiprazole (ABILIFY) 10 MG tabletIndications:Mixe d Bipolar Affective Disorder Take 1 tablet by mouth daily. Indications: MIXED BIPOLAR AFFECTIVE DISORDER 90 tablet 3 03/14/2024 clopidogrel (PLAVIX) 75 MG tablet Take 1 tablet by mouth daily. 90 tablet 3 02/24/2024 02/18/2025 atorvastatin (LIPITOR) 80 MG tablet Take 80 mg by mouth at bedtime. 01/22/2024 ezetimibe (ZETIA) 10 MG tablet Take 10 mg by mouth at bedtime. 11/11/2023 ranolazine (RANEXA) 500 MG 12 hr tablet Take 500 mg by mouth in the morning and 500 mg in the evening. 01/21/2024 albuterol (ProAir HFA) 108 (90 Base) MCG/ACT inhalerIndications:Ast hma Inhale 2 puffs into the lungs every 4 hours as needed for Shortness of Breath or Wheezing. 8.5 g 1 02/26/2023 aspirin (ECOTRIN) 81 MG EC tabletIndications:Athe rosclerotic Disease Take 1 tablet by mouth daily. 15 tablet 1 02/27/2023 carvedilol (COREG) 12.5 MG tabletIndications:Hype rtension Take 1 tablet by mouth every 12 hours. 30 tablet 1 02/26/2023 hydroCORTisone (CORTIZONE) 1 % cream Apply topically 2 times daily as needed (rash). 28 g 02/26/2023 spironolactone (ALDACTONE) 25 MG tabletIndications:Hype rtension Take 1 tablet by mouth daily. 15 tablet 1 02/26/2023 calcium carbonate (TUMS) 500 MG chewable tablet Chew 1 tablet by mouth as needed for Heartburn. losartan (COZAAR) 50 MG tablet Take 100 mg by mouth daily. 01/22/2024 04/05/2024 documented as of this encounter Discharge Disposition Disposition Code Departure Means Destination Comment s Home or Self Care [facility] documented in this encounter ED Notes * [...] few other emergency departments. 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) Dyslipidemia Gastroesophageal [...] Physical Exam Physical Exam ED Triage Vitals [04/04/24 1819] ED Triage Vitals Group Temp 97.5 ??F [...] Percent 54 % Lymphocytes, Percent 33 % Bandera, Percent 9 % Eosinophils, Percent 2 % Basophils, Percent 1 % Immature Granulocytes 1 % Absolute Neutrophils 4.6 1.8 - 7.7 K/mcL Absolute Lymphocytes 2.9 1.0 - 4.0 K/mcL Absolute Monocytes 0.8 0.3 - 0.9 K/mcL Absolute Eosinophils 0.2 0.0 - 0.5 K/mcL Absolute Basophils 0.1 0.0 - 0.3 K/mcL Absolute Immature Granulocytes 0.1 0.0 - 0.2 K/mcL EKG [place] EKG report Results for orders placed or performed during the hospital encounter of 04/04/24 Electrocardiogram 12-Lead Result Value Ref Range Ventricular Rate EKG/Min (BPM) 77 Atrial Rate (BPM) 77 AL-Interval (MSEC) 138 QRS-Interval (MSEC) 84 QT-Interval (MSEC) 382 QTc 432 P [place] (Degrees) 52 R [place] (Degrees) 17 T [place] (Degrees) 75 REPORT TEXT Sinus rhythm with premature atrial complexes Abnormal ECG When compared with ECG of 01-APR-2024 00:47, premature atrial complexes are now present Confirmed by HÉCTOR CASTILLO MD ([id number]) on 04/04/2024 9:54:42 PM I have personally [...] 04/04/2024 9:40 PM Created on Workstation ID: [id number] Signed on Workstation ID: [id number] Narrative: EXAM: XR CHEST AP OR PA [...] Sitting Pulse: 88 (!) 55 64 Resp: Temp: 97.5 ??F (36.4 ??C) TempSrc: Oral [...] hemodynamically stable. Hence he is discharged in [facility] to home on cardiac medications were optimized. [...] for stress imaging.The images were reviewed on [employer]. This Week [employer] was utilized for the stress portion of [...] ago, patient does have follow-up with his taxation inspector at 9 AM tomorrow. His vitals are [...] -- -- Follow Up: Bal Mayen MD [address] [facility] [place][note 2] [id number] Go to your scheduled appointment tomorrow at 9am Summary of your Discharge Medications You have not been prescribed any medications. Pt is discharged to home/self care in stable condition. Discharge 04/04/2024 10:07 PM Johnny Garnett discharge to home/self care. Héctor Castillo MD 04/04/241 SHEAR OPERATOR * Gavin Balderas RN - 04/04/2024 6:10 PM CST Pt comes to the ED with a CC of CP. Pt rate the pain a 9/10 that comes and goes. 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 No medications BRIM GREASER OPERATOR. SHEAR OPERATOR documented in this encounter Plan of Treatment Upcoming Encounters Date Type Department Care Team (Late st Contact Info) Description 07/05/2024 4:15 PM CDT Office Visit [facility] [address] [address] Bal Mayen MD [address] [address] documented as of this encounter Goals Goal Patient Goal Type Associated Problems Recent Progress Patient-Stated? Author Advance Directives General Yes Abbey Castano, INDUSTRIAL HEALTH ENGINEER Note: [employer] document sent 02/03 documented as of this encounter Procedures Procedure Name Priority Date/Time Associated Diagnosis Comments XR CHEST AP OR PA STAT 04/04/2024 9:3 5 PM TREE SHEAR OPERATOR EXTRA TUBES Routine 04/04/2024 8:54 PM TREE SHEAR OPERATOR TROPONIN I, HIGH SENSITIVITY STAT 04/04/2024 8:49 PM TREE SHEAR OPERATOR CBC WITH DIFFERENTIAL STAT 04/04/2024 8:49 PM TREE SHEAR OPERATOR CBC WITH AUTOMATED DIFFERENTIAL (PERFORMABLE ONLY) STAT 04/04/2024 8:49 PM TREE SHEAR OPERATOR BASIC METABOLIC PANEL STAT 04/04/2024 8:49 PM TREE SHEAR OPERATOR ELECTROCARDIOGRAM 12-LEAD STAT 2024 6:19 PM TREE SHEAR OPERATOR documented in this encounter Results * XR CHEST AP OR PA (04/04/2024 9:35 PM TREE SHEAR OPERATOR) Anatomical Region Laterality Modality Chest/Thorax N/A Digital Radiogra phy 04/04/2024 9:39 PM TREE SHEAR OPERATOR Impressions 04/04/2024 9:40 PM TREE SHEAR OPERATOR IMPRESSION: No acute cardiopulmonary disease. Electronically Signed by: Ernesto Silva MD Signed on: 04/04/2024 9:40 PM Created on Workstation ID: [id number] Signed on Workstation ID: [id number] Narrative 04/04/2024 9:40 PM TREE SHEAR OPERATOR EXAM: XR CHEST AP OR PA CLINICAL [...] 04/04/2024 9:40 PM Created on Workstation ID: [id number] Signed on Workstation ID: [id number] Héctor Castillo MD IMG XR PROCEDURES * Gold Top (04/04/2024 8:54 PM TREE SHEAR OPERATOR) Extra Tube Hold for Add Ons 04/05/2024 5:01 AM TREE SHEAR OPERATOR [facility] Blood VENOUS BLOOD SPECIMEN / Unknown Venipuncture / Unknown 04/04/2024 8:54 PM TREE SHEAR OPERATOR 04/04/2024 8:54 PM TREE SHEAR OPERATOR Héctor Castillo MD BKR LAB BLOOD ORDERA BLES [address] [address] * Light Blue Top (04/04/2024 8:54 PM TREE SHEAR OPERATOR) Extra Tube Hold for Add Ons 04/05/2024 5:01 AM TREE SHEAR OPERATOR [facility] Blood VENOUS BLOOD SPECIMEN / Unknown Venipuncture / Unknown 04/04/2024 8:54 PM TREE SHEAR OPERATOR 04/04/2024 8:54 PM TREE SHEAR OPERATOR Héctor Castillo MD BKR LAB BLOOD ORDERA BLES Performing Organization Address City/[facility] [address]/ZIP Co de Phone Number [address] [address] * CBC with Automated Differential (performable only) (04/04/2024 8:49 PM TREE SHEAR OPERATOR) WBC 8.6 4.2 - 11.0 K/mcL 04/04/2024 9:00 PM [facility] RBC 5.49 4.50 - 5.90 mil/mcL 04/04/2024 9:00 PM [facility] HGB 14.9 13.0 - 17.0 g/dL 04/04/2024 9:00 PM [facility] HCT 46.3 39.0 - 51.0 % 04/04/2024 9:00 PM [facility] MCV 84.3 78.0 - 100.0 fl 04/04/2024 9:00 PM [facility] MCH 27.1 26.0 - 34.0 pg 04/04/2024 9:00 PM [facility] MCHC 32.2 32.0 - 36.5 g/dL 04/04/2024 9:00 PM [facility] RDW-CV 13.2 11.0 - 15.0 % 04/04/2024 9:00 PM [facility] RDW-SD 40.1 39.0 - 50.0 fL 04/04/2024 9:00 PM [facility] PLT 292 140 - 450 K/mcL 04/04/2024 9:00 PM [facility] NRBC 0 <=0 /100 WBC 04/04/2024 9:00 PM [facility] Neutrophil, Percent 54 % 04/04/2024 9:00 PM [facility] Lymphocytes, Percent 33 % 04/04/2024 9:00 PM [facility] Bandera, Percent 9 % 04/04/2024 9:00 PM [facility] Eosinophils, Percent 2 % 04/04/2024 9:00 PM [facility] Basophils, Percent 1 % 04/04/2024 9:00 PM [facility] Immature Granulocytes 1 % 04/04/2024 9:00 PM [facility] Absolute Neutrophils 4.6 1.8 - 7.7 K/mcL 04/04/2024 9:00 PM [facility] Absolute Lymphocytes 2.9 1.0 - 4.0 K/mcL 04/04/2024 9:00 PM [facility] Absolute Monocytes 0.8 0.3 - 0.9 K/mcL 04/04/2024 9:00 PM [facility] Absolute Eosinophils 0.2 0.0 - 0.5 K/mcL 04/04/2024 9:00 PM [facility] Absolute Basophils 0.1 0.0 - 0.3 K/mcL 04/04/2024 9:00 PM [facility] Absolute Immature Granulocytes 0.1 0.0 - 0.2 K/mcL 04/04/2024 9:00 PM TREE SHEAR OPERATOR [facility] Blood VENOUS BLOOD SPECIMEN / Unknown Venipuncture / Unknown 04/04/2024 8:49 PM TREE SHEAR OPERATOR 04/04/2024 8:53 PM TREE SHEAR OPERATOR Héctor Castillo MD BKR LAB BLOOD ORDERA BLES Performing Organization Address City/[facility] [address]/ZIP Co de Phone Number [address] [address] * TROPONIN I, HIGH SENSITIVITY (04/04/2024 8:49 PM TREE SHEAR OPERATOR) Troponin I, High Sensitivity 24 <77 ng/L 04/04/2024 9:18 PM [facility] Blood VENOUS BLOOD SPECIMEN / Unknown Venipuncture / Unknown 04/04/2024 8:49 PM TREE SHEAR OPERATOR 04/04/2024 8:53 PM TREE SHEAR OPERATOR Héctor JOYR LAB BLOOD ORDERA BLES Performing Organization Address City/[facility] [address]/ZIP Co de Phone Number [address] [address] * (ABNORMAL) Basic Metabolic Panel (04/04/2024 8:49 PM TREE SHEAR OPERATOR) Fasting Status 04/04/2024 9:18 PM [facility] Sodium 141 135 - 145 mmol/L 04/04/2024 9:18 PM [facility] Potassium 4.1 3.4 - 5.1 mmol/L 04/04/2024 9:18 PM [facility] Chloride 110 97 - 110 mmol/L 04/04/2024 9:18 PM [facility] Carbon Dioxide 28 21 - 32 mmol/L 04/04/2024 9:18 PM [facility] Anion Gap 7 7 - 19 mmol/L 04/04/2024 9:18 PM [facility] Glucose 101(H) 70 - 99 mg/dL 04/04/2024 9:18 PM [facility] BUN 26(H) 6 - 20 mg/dL 04/04/2024 9:18 PM [facility] Creatinine 0.74 0.67 - 1.17 mg/dL 04/04/2024 9:18 PM [facility] Glomerular Filtration Rate >90 >=60 04/04/2024 9:18 PM [facility] Comment:eGFR results = or >6 0 mL/min/1.73m2 = Normal kidney function. Estimated GFR calculated using the CKD-EPI-R (2020) equation that does not include race in the creatinine calculation. BUN/Cr 35(H) 7 - 25 04/04/2024 9:18 PM [facility] Calcium 10.2 8.4 - 10.2 mg/dL 04/04/2024 9:18 PM [facility] Blood VENOUS BLOOD SPECIMEN / Unknown Venipuncture / Unknown 04/04/2024 8:49 PM TREE SHEAR OPERATOR 04/04/2024 8:53 PM TREE SHEAR OPERATOR Héctor Castillo MD BKR LAB BLOOD ORDERA BLES [address] [address] * Electrocardiogram 12-Lead (04/04/2024 6:19 PM TREE SHEAR OPERATOR) Ventricular Rate EKG/Min (BPM) 77 MUSE Atrial Rate (BPM) 77 MUSE AL-Interval (MSEC) 138 MUSE QRS-Interval (MSEC) 84 MUSE QT-Interval (MSEC) 382 MUSE QTc 432 MUSE P Clear[place] (Degrees) 52 MUSE R [place] (Degrees) 17 MUSE T [place] (Degrees) 75 MUSE REPORT TEXT Sinus rhythm with premature atrial complexes Abnormal ECG When compared with ECG of 01-APR-2024 00:47, premature atrial complexes are now present Confirmed by HÉCTOR CASTILLO MD ([id number]) on 04/04/2024 9:54:42 PM MUSE 04/04/2024 6:19 PM TREE SHEAR OPERATOR Héctor Castillo MD ECG ORDERABLES MUSE documented in this encounter Visit Diagnoses Diagnosis Chest pain in adult- Primary documented in this encounter Administered Medications Inactive Administered Medications - up to 1 most recent administrations Medication Order MAR Action Action Date Dose Rate Site acetaminophen (TYLENOL) tablet 1,000 mg 1,000 mg ONCE, Oral, On Wed04/04/24 at 2027, For 1 dose, Maximum of 4,000 mg acetaminophen per 24 hours from ALL sources. Given 04/04/2024 8:35 PM TREE SHEAR OPERATOR 1,000 mg aspirin chewable 243 mg 243 mg ONCE, Oral, On Wed04/04/24 at 2027, For 1 dose Given 04/04/2024 8:35 PM TREE SHEAR OPERATOR 243 mg documented in this encounter Active and Recently Administered Medications Times are shown in TREE SHEAR OPERATOR. Scheduled Medication Order 04/02/2024 04/03/2024 04/04/2024 acetaminophen [...] Depression Total Score: 17 024 8:08 PM TREE SHEAR OPERATOR documented as of this encounter Care Teams Applied Behavior Specialist Relationship Specialty Start Date End Date Christy Gonzalez MD [address] [facility] [address] [place] [phone] PCP - General Internal Medicine 12/21/22 Abbey Castano MSW Requirements Engineer - Population Health Social Work 01/28/24 documented as of this encounter
--- OUTSIDE RECORDS SUMMARY | 2024-04-09 16:17 | XMS_ITS | Encounter Summary ---
Author Organization [facility] Address [address] [place] [id number] Care Team Providers Care Network Security Consultant Name Role Phone Christy Gonzalez MD Primary Care Provider Abbey Castano Unavailable Unavailable Encounter Details Date Type Department Care Team (Latest Contact Info) Description 04/04/2024 Travel Social History Tobacco Use Types Packs/Day Years [...] In the past 12 months has e electric, gas, oil, or water company [...] phone, visiting friends or family, going to jain or club meetings) Patient declined 02/23/2024 Alcohol [...] on file documented as of this encounter Functional Status Functional Status Response [...] No 02/22/2024 documented as of this encounter Plan of Treatment Upcoming Encounters Date Type Department Care Team (Late st Contact Info) Description 07/05/2024 4:15 PM CDT Office Visit [facility] [address] [place] [address] Bal Mayen MD [address] [place] [address] documented as of this encounter Goals Goal Patient Goal Type Associated Problems Recent Progress Patient-Stated? Author Advance Directives General Yes Abbey Castano, ETHYLENE OXIDE PANELBOARD OPERATOR Note: [employer] document sent 02/03 documented as of this encounter Visit Diagnoses Not on filedocumented in this encounter Additional Health Concerns Assessment Noted Time PHQ-9 Depression Total Score: 17 024 8:08 PM CARVING MACHINE OPERATOR documented as of this encounter Care Teams Network Security Consultant Relationship Specialty Start Date End Date Christy Gonzalez MD [address] [place] [id number] PCP - General Internal Medicine 12/21/22 Abbey Castano, ETHYLENE OXIDE PANELBOARD OPERATOR Belt Lacer - Population Health Social Work 01/28/24 documented as of this encounter
--- OUTSIDE RECORDS SUMMARY | 2024-04-09 16:17 | XMS_ITS | Clinical Summary ---
Author Organization [facility] Address [address] [place] [address] Care Team Providers Care Bag Press Operator Name Role Phone Christy Gonzalez MD Primary Care Provider [phone] Abbey Castano LAB ANALYST Unavailable Unavailable Allergies Active Allergy Reactions Criticality Noted Date [...] daily. 90 tablet 3 04/05/2024 04/05/2025 Active ARIPiprazole (ABILIFY) 10 MG tabletIndications :Mixed Bipolar Affective Disorder Indications: MIXED BIPOLAR AFFECTIVE DISORDER 0.5 tab q am x one week then 1 tab q am thereafter. 30 tablet 5 09/13/2023 03/14/2024 Discontinue d(Reorder) escitalopram (LEXAPRO) 20 MG tabletIndications :Obsessive Compulsive Disorder Take 1 tablet by mouth daily. Indications: Obsessive Compulsive Disorder 30 tablet 5 09/13/2023 03/14/2024 Discontinue d(Reorder) QUEtiapine (SEROquel) 50 MG tabletIndications :Bipolar Mood Disorder Take 1 tablet by mouth at bedtime. Indications: Manic-Depression 30 tablet 5 09/13/2023 03/14/2024 Discontinue d(Reorder) losartan (COZAAR) 50 MG tablet Take 100 mg by mouth daily. 01/22/2024 04/05/2024 Discontinue d(Dose Adjustment) Active Problems Problem Noted Date Diagnosed Date History of attention deficit hyperactivity disor hilda (ADHD) 03/10/2023 Bipolar disorder, curr episo de mixed, severe, with psychotic features (CMD) 03/10/2023 Chest pain, unspecified type 02/17/2023 Hypertensive urgency 12/17/2022 Pleural effusion, bilateral 04/25/2022 S/P CABG x 3 04/13/2022 ACS (acute coronary syndrome) (CMD) 04/10/2022 Syncope and collapse 04/10/2020 Assessment & Plan (04/10/2020 1:59 PM RENAL MEDICINE PHYSICIAN): He had 3 episodes of syncope in [...] 04/29/2015 Assessment & Plan (04/10/2020 1:53 PM RENAL MEDICINE PHYSICIAN): Last echo 01/31/2020 with LVEF 57%. Continue current management. 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 Follow up by Dr. Mayen. Snoring 10/12/2011 Hypersomnolence 10/12/2011 Bronchial asthma (CMD) HTN (hypertension) Assessment & Plan (04/10/2020 1:52 PM RENAL MEDICINE PHYSICIAN): Continue current management. 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 05/15/2016 03/10/2023 Encounters Date Type Department Care Team Description 04/05/2024 9:00 AM RENAL MEDICINE PHYSICIAN Office Visit [facility] [address] [place] [address] Bal Mayen MD Hypertension, unspecified type (Primary Dx); Hyperlipidemia, unspecified hyperlipidemia type 04/04/2024 8:13 PM RENAL MEDICINE PHYSICIAN - 04/04/2024 10:24 PM RENAL MEDICINE PHYSICIAN Emergency [facility] Emergency Services [address] [place] [address] Héctor Castillo MD Chest pain in adult (Primary Dx) Discharge Disposition: Home or Self Care 04/04/2024 Travel 03/31/2024 9:12 PM RENAL MEDICINE PHYSICIAN - 04/01/2024 2:12 AM RENAL MEDICINE PHYSICIAN Emergency [facility] Emergency Services [address] [place] [phone] Hayden Carver DO Brauns[place]we[place], Leah N, RN Nonspecific chest pain (Primary Dx) Discharge Disposition: Home or Self Care 03/31/2024 Travel 03/25/2024 Telephone [facility] CRS Scheduling [address] [place], [place] Bal Mayen MD [facility] 5 03/18/2024 Telephone [facility] [address] [place] [address] Provider, Population Health Support [facility] Out[facility] 4 03/14/2024 Case Management [facility], A Building [address] [place] [phone] Abbey Castano, LAB ANALYST 03/11/2024 Telephone [facility] [address] [place] [phone] Provider, Population Health Support [facility] 3 03/07/2024 Case Management [facility] Case [facility] [place], A Building [address] [place] [phone] Abbey Castano, LAB ANALYST 03/04/2024 Telephone [facility] [address] [place] [phone] Provider, Population Health Support [facility] 2 02/29/2024 Case Management [facility], A Building [address] [place] [phone] Abbey Castano, LAB ANALYST 02/26/2024 Telephone [facility] [address] [place] [phone] Provider, Population Health Support [facility] T[facility] Out[facility] 1 02/26/2024 Telephone [facility] [address] [place] [address] Provider, Population Health Support [facility] 1 02/26/2024 Telephone [facility] [address] [place] [address] Provider, Population Health Support [facility] Out[facility] 1 02/26/2024 Telephone [facility] [address] [place] [phone] Provider, Population Health Support [facility] Out[facility] 1 02/22/2024 11:26 AM RENAL MEDICINE PHYSICIAN - 02/24/2024 2:15 PM RENAL MEDICINE PHYSICIAN Emergency [address] Cardiac Medical [address] [place] [address] Syed Leyva DO Zia, Turgut Z, MD [place], MD Basilio Wakefield Erin R, RN Pearson, Cortney, RN Thao, Via X, Adriana Jones, Mary Jo Johnson MD Kennedy, Alyssa M, RN Lindstrom, LEIF Ornelaso, Anastasiya E, Martin Vasquez, Thu Ashby, TOMI Howard, Raisa, Margaret Harrington, MARGUERITE Hansen, Roxana Torres, LAB ANALYST Edilma Ghosh, LEIF Sotomayor, Lazara Cheek, MARGUERITE Serna, Adonay, MARGUERITE Majano, Aleax Abraham, LEIF Landa, Love Mason, SHOE CLEANER Discharge Disposition: Home or Self Care 02/22/2024 Case Management [facility] Case [facility], A Building [address] [place] [phone] Abbey Castano, LAB ANALYST 02/22/2024 Travel 02/11/2024 Case Management [facility] Case Mgmt[facility], A [place] [address] [place] [phone] Abbey Castano, LAB ANALYST 02/04/2024 Case Management [facility] Case [facility], A [facility] [address] [place] [phone] Abbey Castano, LAB ANALYST 02/02/2024 Case Management [facility] Mgmt-[facility], A [place] [address] [place] [phone] Abbey Castano, LAB ANALYST 01/28/2024 Case Management [facility] [id number] [facility] [address] [phone] Kiya Sequeira, LEIF 01/25/2024 Case Management [facility] [id number] [facility] [address] [place] [address] Kiya Sequeira, RN 01/24/2024 Telephone [facility] [address] [address] Bal Mayen MD 01/24/2024 Clinical Documentation [facility] [address] [place] [address] Bal Mayen MD 01/21/2024 External Record Outside Facility Provider, Outside 01/18/2024 External Record Outside Facility Provider, Outside 01/17/2024 Case Management [facility] [id number] [place] [phone] Kiya Sequeira RN from Last 3 Months Immunizations Name Administration Dates Next Due COVID Pfizer 12Y+ (Requires Dilution) 01/17/2021 ,12/27/2020 Influenza, split virus, trivalent 12/29/2006,12/2003,01/16/2003 Tdap 11/06/2008 Surgical History Surgery Date Site/Laterality Comments CARDIAC SURGERY 04/13/2022 myocardial revascularization Medical History Medical History Date Comments Bronchial asthma (CMD) HTN (hypertension) Chronic low back pain Impaired fasting glucose Dyslipidemia Obesity Snoring Hypersomnolence Coronary artery disease 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 (CMD) Obsessive compulsive disorder Atypical chest pain Ischemic cardiomyopathy Moderate depressed bipolar I disorder (CMD) ADD (attention deficit disorder) without hyperac tivity Cocaine abuse (CMD) SOB (shortness of breath) on exertion Syncope and collapse S/P CABG x 3 04/13/2022 Myocardial infarction (CMD) Congestive cardiac failure (CMD) High cholesterol Sleep apnea Not on Cpap Gastroesophageal reflux disease Carpal tunnel syndrome on both sides Moderate depressed bipolar I disorder (CMD) 04/29 Mood disorder (CMD) 02/21/2023 ADD (attention deficit disorder) without hyperac tivity 05/15/2016 Family History Medical History Relation Comments Early Father Heart disease Father Dementia/Alzheimers Mother Diabetes Mother Early Paternal Grandfather Heart disease Paternal Grandfather Relation Status Comments Brother Daughter Alive Father Mother Paternal Grandfather Son Alive Social History Tobacco Use Types Packs/Day Years [...] the past 12 months has th e [employer], gas, oil, or water company threatened to [...] phone, visiting friends or family, going to gnosticism or club meetings) Patient declined 02/23/2024 Alcohol [...] file Not on file Not on file Obstetrics History Last Filed Vital Signs Vital Sign Reading Time Taken Comments Blood Pressure 172/96 04/05/2024 8:59 AM RENAL MEDICINE PHYSICIAN Pulse 64 04/05/2024 8:59 AM RENAL MEDICINE PHYSICIAN Temperature 36.4 C (97.5 F) 04/04/2024 6:19 PM RENAL MEDICINE PHYSICIAN Respiratory Rate 18 04/04/2024 10:22 PM RENAL MEDICINE PHYSICIAN Oxygen Saturation 94% 04/04/2024 10:22 PM RENAL MEDICINE PHYSICIAN Inhaled Oxygen Concentration - - Weight 109 kg (240 lb 4.8 oz) 04/05/2024 8:59 AM RENAL MEDICINE PHYSICIAN Height 177.8 cm (5' 10) 04/05/2024 8:59 AM RENAL MEDICINE PHYSICIAN Body Mass Index 34.48 04/05/2024 8:59 AM RENAL MEDICINE PHYSICIAN Plan of Treatment Upcoming Encounters Date Type Department Care Team (Late st Contact Info) Description 07/05/2024 4:15 PM CDT Office Visit [facility] [address] [address] Bal Mayen MD [address] [address] Health Maintenance Due Date Last Done Comments [...] on patient's age to complete this topic Goals Goal Patient Goal Type Associated Problems Recent Progress Patient-Stated? Author Advance Directives General Yes Abbey Castano, LAB ANALYST Note: Honoring Choices document sent 02/03 Medical Devices Implanted Type Area Woods Warden Device Identifier Shelf Expiration Date Model / Serial / Lot [place] Cv 1x1in Thk1.65mm Ptfe Patch Strl Lf - S. Implanted:Qty: 1 on 04/13/2022 by Javon Marquis MD at [facility] Graft N/A: Chest BD [employer] [id number] 11/23/2026 [id number] / . / [id number] Clip Internal Sm Wide Ligate Horizon Ti - S. Implanted:Qty: 3 on 04/13/2022 by Javon Marquis MD at [facility] Other Implant N/A: Chest [employer] [id number] 10/27/2026 [id number] / . / [id number] Sponge Abs [id number] 12.5x8cm Porcine Geltn Strl Disp Surgfm - S. Implanted:Qty: 1 on 04/13/2022 by Javon Marquis MD at [facility] Other Implant N/A: Chest [employer] Inc [id number] 11/03/2025 1974 / . / [id number] Clip Internal Med Chevron 24 Crtdg Ligate Triangulate Xsect - S. Implanted:Qty: 1 on 04/13/2022 by Javon Marquis MD at [facility] Other Implant N/A: Chest Teleflex Save22 [id number] 11/23/2026 [id number] / . / [id number] Stent Resolute Intgr Microtrac 3.5mm 22mm - [id number] Implanted:Qty: 1 on 09/30/2014 by Bal Mayen MD at [facility] Stent Left Anterior Descending Artery [employer] . 07/04/2016 [id number] / / [id number] Description:Implant manufact urer/size/type and expiration date verified by proceduralist and procedure staff. Verification initials:cd/jk Procedures Procedure Name Priority Date/Time Associated Diagnosis Comments XR CHEST AP OR PA STAT 04/04/2024 9:3 5 PM RENAL MEDICINE PHYSICIAN EXTRA TUBES Routine 04/04/2024 8:54 PM RENAL MEDICINE PHYSICIAN CBC WITH AUTOMATED DIFFERENTIAL (PERFORMABLE ONLY) STAT 04/04/2024 8:49 PM RENAL MEDICINE PHYSICIAN TROPONIN I, HIGH SENSITIVITY STAT 04/04/2024 8:49 PM RENAL MEDICINE PHYSICIAN BASIC METABOLIC PANEL STAT 04/04/2024 8:49 PM RENAL MEDICINE PHYSICIAN CBC WITH DIFFERENTIAL STAT 04/04/2024 8:49 PM RENAL MEDICINE PHYSICIAN ELECTROCARDIOGRAM 12-LEAD STAT 2024 6:19 PM RENAL MEDICINE PHYSICIAN TROPONIN I, HIGH SENSITIVITY STAT 04/01/2024 12:56 AM RENAL MEDICINE PHYSICIAN ELECTROCARDIOGRAM 12-LEAD STAT 2024 12:47 AM RENAL MEDICINE PHYSICIAN EXTRA TUBES Routine 03/31/2024 10:51 PM RENAL MEDICINE PHYSICIAN RAINBOW DRAW STAT 03/31/2024 10:44 PM RENAL MEDICINE PHYSICIAN CBC WITH AUTOMATED DIFFERENTIAL (PERFORMABLE ONLY) STAT 03/31/2024 10:44 PM RENAL MEDICINE PHYSICIAN D DIMER, QUANTITATIVE STAT 03/31/2024 10:44 PM RENAL MEDICINE PHYSICIAN TROPONIN I, HIGH SENSITIVITY STAT 03/31/2024 10:44 PM RENAL MEDICINE PHYSICIAN PARTIAL THROMBOPLASTIN TIME STAT 03/31/2024 10:44 PM RENAL MEDICINE PHYSICIAN PROTHROMBIN TIME (INR/PT) STAT 2024 10:44 PM RENAL MEDICINE PHYSICIAN LIPASE STAT 03/31/2024 10:44 PM RENAL MEDICINE PHYSICIAN COMPREHENSIVE METABOLIC PANEL STAT 03/31/2024 10:44 PM RENAL MEDICINE PHYSICIAN CBC WITH DIFFERENTIAL STAT 03/31/2024 10:44 PM RENAL MEDICINE PHYSICIAN XR CHEST AP OR PA STAT 03/31/2024 9:5 7 PM RENAL MEDICINE PHYSICIAN ELECTROCARDIOGRAM 12-LEAD STAT 2024 9:15 PM RENAL MEDICINE PHYSICIAN POTASSIUM Routine 02/23/2024 3:33 AM RENAL MEDICINE PHYSICIAN DRUG SCREEN, URINE Routine 02/22/2024 11 :23 PM RENAL MEDICINE PHYSICIAN TROPONIN I, HIGH SENSITIVITY Routine 02/22/2024 6:06 PM RENAL MEDICINE PHYSICIAN XR CHEST AP OR PA STAT 02/22/2024 12: 16 PM RENAL MEDICINE PHYSICIAN TROPONIN I POINT OF CARE Routine 024 12:10 PM RENAL MEDICINE PHYSICIAN ISTAT CHEM8 - POINT OF CARE Routine 02/22/2024 12:02 PM RENAL MEDICINE PHYSICIAN CBC WITH AUTOMATED DIFFERENTIAL (PERFORMABLE ONLY) STAT 02/22/2024 11:56 AM RENAL MEDICINE PHYSICIAN NT PROBNP STAT 02/22/2024 11:56 AM RENAL MEDICINE PHYSICIAN TROPONIN I, HIGH SENSITIVITY STAT 02/22/2024 11:56 AM RENAL MEDICINE PHYSICIAN COMPREHENSIVE METABOLIC PANEL STAT 02/22/2024 11:56 AM RENAL MEDICINE PHYSICIAN CBC WITH DIFFERENTIAL STAT 02/22/2024 11:56 AM RENAL MEDICINE PHYSICIAN ELECTROCARDIOGRAM 12-LEAD STAT 2023 11:25 AM RENAL MEDICINE PHYSICIAN from Last 3 Months Results * XR CHEST AP OR PA (04/04/2024 9:35 PM RENAL MEDICINE PHYSICIAN) Anatomical Region Laterality Modality Chest/Thorax N/A Digital Radiogra phy 04/04/2024 9:39 PM RENAL MEDICINE PHYSICIAN Impressions 04/04/2024 9:40 PM RENAL MEDICINE PHYSICIAN IMPRESSION: No acute cardiopulmonary disease. Electronically Signed by: Ernesto Silva MD Signed on: 04/04/2024 9:40 PM Created on Workstation ID: [id number] Signed on Workstation ID: [id number] Narrative 04/04/2024 9:40 PM RENAL MEDICINE PHYSICIAN EXAM: XR CHEST AP OR PA CLINICAL [...] 04/04/2024 9:40 PM Created on Workstation ID: [id number] Signed on Workstation ID: [id number] Héctor Castillo MD IMG XR PROCEDURES * Gold Top (04/04/2024 8:54 PM RENAL MEDICINE PHYSICIAN) Only the most recent of2 resultswithin the time period is included. Extra Tube Hold for Add Ons 04/05/2024 5:01 AM RENAL MEDICINE PHYSICIAN [facility] Blood VENOUS BLOOD SPECIMEN / Unknown Venipuncture / Unknown 04/04/2024 8:54 PM RENAL MEDICINE PHYSICIAN 04/04/2024 8:54 PM RENAL MEDICINE PHYSICIAN Héctor Castillo MD BKR LAB BLOOD ORDERA BLES Performing Organization Address City/[facility]/ZIP Co de Phone Number [place] [phone] * Light Blue Top (04/04/2024 8:54 PM RENAL MEDICINE PHYSICIAN) Extra Tube Hold for Add Ons 04/05/2024 5:01 AM RENAL MEDICINE PHYSICIAN [facility] Blood VENOUS BLOOD SPECIMEN / Unknown Venipuncture / Unknown 04/04/2024 8:54 PM RENAL MEDICINE PHYSICIAN 04/04/2024 8:54 PM RENAL MEDICINE PHYSICIAN Héctor Castillo MD BKR LAB BLOOD ORDERA BLES [address] [address] * TROPONIN I, HIGH SENSITIVITY (04/04/2024 8:49 PM RENAL MEDICINE PHYSICIAN) Only the most recent of5 resultswithin the time period is included. Troponin I, High Sensitivity 24 <77 ng/L 04/04/2024 9:18 PM RENAL MEDICINE PHYSICIAN [facility] Blood VENOUS BLOOD SPECIMEN / Unknown Venipuncture / Unknown 04/04/2024 8:49 PM RENAL MEDICINE PHYSICIAN 04/04/2024 8:53 PM RENAL MEDICINE PHYSICIAN Héctor Castillo MD BKR LAB BLOOD ORDERA BLES [facility] [address] [place] [address] * CBC with Automated Differential (performable only) (04/04/2024 8:49 PM RENAL MEDICINE PHYSICIAN) Only the most recent of3 resultswithin the time period is included. WBC 8.6 4.2 - 11.0 K/mcL 04/04/2024 9:00 PM [facility] RBC 5.49 4.50 - 5.90 mil/mcL 04/04/2024 9:00 PM [facility] HGB 14.9 13.0 - 17.0 g/dL 04/04/2024 9:00 PM [facility] HCT 46.3 39.0 - 51.0 % 04/04/2024 9:00 PM [facility] MCV 84.3 78.0 - 100.0 fl 04/04/2024 9:00 PM [facility] MCH 27.1 26.0 - 34.0 pg 04/04/2024 9:00 PM [facility] MCHC 32.2 32.0 - 36.5 g/dL 04/04/2024 9:00 PM [facility] RDW-CV 13.2 11.0 - 15.0 % 04/04/2024 9:00 PM [facility] RDW-SD 40.1 39.0 - 50.0 fL 04/04/2024 9:00 PM [facility] PLT 292 140 - 450 K/mcL 04/04/2024 9:00 PM [facility] NRBC 0 <=0 /100 WBC 04/04/2024 9:00 PM [facility] Neutrophil, Percent 54 % 04/04/2024 9:00 PM [facility] Lymphocytes, Percent 33 % 04/04/2024 9:00 PM [facility] Ceiba, Percent 9 % 04/04/2024 9:00 PM [facility] Eosinophils, Percent 2 % 04/04/2024 9:00 PM [facility] Basophils, Percent 1 % 04/04/2024 9:00 PM [facility] Immature Granulocytes 1 % 04/04/2024 9:00 PM [facility] Absolute Neutrophils 4.6 1.8 - 7.7 K/mcL 04/04/2024 9:00 PM [facility] Absolute Lymphocytes 2.9 1.0 - 4.0 K/mcL 04/04/2024 9:00 PM [facility] Absolute Monocytes 0.8 0.3 - 0.9 K/mcL 04/04/2024 9:00 PM [facility] Absolute Eosinophils 0.2 0.0 - 0.5 K/mcL 04/04/2024 9:00 PM [facility] Absolute Basophils 0.1 0.0 - 0.3 K/mcL 04/04/2024 9:00 PM [facility] Absolute Immature Granulocytes 0.1 0.0 - 0.2 K/mcL 04/04/2024 9:00 PM [facility] Blood VENOUS BLOOD SPECIMEN / Unknown Venipuncture / Unknown 04/04/2024 8:49 PM RENAL MEDICINE PHYSICIAN 04/04/2024 8:53 PM RENAL MEDICINE PHYSICIAN Héctor Castillo MD BKR LAB BLOOD ORDERA BLES [facility] [address] [place] [address] * (ABNORMAL) Basic Metabolic Panel (04/04/2024 8:49 PM RENAL MEDICINE PHYSICIAN) Fasting Status 04/04/2024 9:18 PM [facility] Sodium 141 135 - 145 mmol/L 04/04/2024 9:18 PM [facility] Potassium 4.1 3.4 - 5.1 mmol/L 04/04/2024 9:18 PM [facility] Chloride 110 97 - 110 mmol/L 04/04/2024 9:18 PM [facility] Carbon Dioxide 28 21 - 32 mmol/L 04/04/2024 9:18 PM [facility] Anion Gap 7 7 - 19 mmol/L 04/04/2024 9:18 PM [facility] Glucose 101(H) 70 - 99 mg/dL 04/04/2024 9:18 PM [facility] BUN 26(H) 6 - 20 mg/dL 04/04/2024 9:18 PM [facility] Creatinine 0.74 0.67 - 1.17 mg/dL 04/04/2024 9:18 PM [facility] Glomerular Filtration Rate >90 >=60 04/04/2024 9:18 PM [facility] Comment:eGFR results = or >6 0 mL/min/1.73m2 = Normal kidney function. Estimated GFR calculated using the CKD-EPI-R (2020) equation that does not include race in the creatinine calculation. BUN/Cr 35(H) 7 - 25 04/04/2024 9:18 PM [facility] Calcium 10.2 8.4 - 10.2 mg/dL 04/04/2024 9:18 PM [facility] Blood VENOUS BLOOD SPECIMEN / Unknown Venipuncture / Unknown 04/04/2024 8:49 PM RENAL MEDICINE PHYSICIAN 04/04/2024 8:53 PM RENAL MEDICINE PHYSICIAN Héctor Castillo MD BKR LAB BLOOD ORDERA BLES [facility] [address] [place] [address] * Electrocardiogram 12-Lead (04/04/2024 6:19 PM RENAL MEDICINE PHYSICIAN) Only the most recent of4 resultswithin the time period is included. Ventricular Rate EKG/Min (BPM) 77 MUSE Atrial Rate (BPM) 77 MUSE NJ-Interval (MSEC) 138 MUSE QRS-Interval (MSEC) 84 MUSE QT-Interval (MSEC) 382 MUSE QTc 432 MUSE P [place] (Degrees) 52 MUSE R [place] (Degrees) 17 MUSE T [place] (Degrees) 75 MUSE REPORT TEXT Sinus rhythm with premature atrial complexes Abnormal ECG When compared with ECG of 01-APR-2024 00:47, premature atrial complexes are now present Confirmed by HÉCTOR CASTILLO MD ([id number]) on 04/04/2024 9:54:42 PM MUSE 04/04/2024 6:19 PM RENAL MEDICINE PHYSICIAN Héctor Castillo MD ECG ORDERABLES Performing Organization Address City/[facility]/ZIP Co de Phone Number MUSE * Bae Top Tube (03/31/2024 10:51 PM RENAL MEDICINE PHYSICIAN) Extra Tube Hold for Add Ons 04/01/2024 7:01 AM RENAL MEDICINE PHYSICIAN [facility] Blood VENOUS BLOOD SPECIMEN / Unknown 03/31/2024 10:51 PM RENAL MEDICINE PHYSICIAN 03/31/2024 10:51 PM RENAL MEDICINE PHYSICIAN Hayden Bashor DO BKR LAB BLOOD ORDERA BLES Performing Organization Address [facility] [place] [address] * Light Green Top (03/31/2024 10:44 PM RENAL MEDICINE PHYSICIAN) Extra Tube Hold for Add Ons 04/01/2024 7:01 AM RENAL MEDICINE PHYSICIAN [facility] Blood VENOUS BLOOD SPECIMEN / Unknown Venipuncture / Unknown 03/31/2024 10:44 PM RENAL MEDICINE PHYSICIAN 03/31/2024 10:52 PM RENAL MEDICINE PHYSICIAN Hayden Bashor DO BKR LAB BLOOD ORDERA BLES Performing Organization Address [facility] [place] [address] * (ABNORMAL) Partial Thromboplastin Time (PTT) (03/31/2024 10:44 PM RENAL MEDICINE PHYSICIAN) PTT 38(H) 22 - 32 sec 03/31/2024 11:07 PM RENAL MEDICINE PHYSICIAN [facility] Blood VENOUS BLOOD SPECIMEN / Unknown Venipuncture / Unknown 03/31/2024 10:44 PM RENAL MEDICINE PHYSICIAN 03/31/2024 10:49 PM RENAL MEDICINE PHYSICIAN Narrative [facility] - 03/31/2024 11:07 PM RENAL MEDICINE PHYSICIAN PTT Therapeutic Range: 45-65 seconds. Hayden Bashor DO BKR LAB BLOOD ORDERA BLES Performing Organization Address City/[facility]/[place] [address] * Prothrombin Time (INR/PT) (03/31/2024 10:44 PM RENAL MEDICINE PHYSICIAN) Pathologist [facility] Protime- PT 10.4 9.7 - 11.8 sec 03/31/2024 11:07 PM RENAL MEDICINE PHYSICIAN [facility] INR 1.0 03/31/2024 11:07 PM RENAL MEDICINE PHYSICIAN [facility] Comment:INR Therapeutic Rang e: 2.0 to 3.0 (2.5 to 3.5 recommended for recurrent thrombotic episodes and mechanical prosthetic heart valves.) Blood VENOUS BLOOD SPECIMEN / Unknown Venipuncture / Unknown 03/31/2024 10:44 PM RENAL MEDICINE PHYSICIAN 03/31/2024 10:49 PM RENAL MEDICINE PHYSICIAN Haydenmarshall Jainhor DO BKR LAB BLOOD ORDERA BLES Performing Organization Address [facility]/[place] [address] * D Dimer, Quantitative (03/31/2024 10:44 PM RENAL MEDICINE PHYSICIAN) Pathologist [facility] D Dimer, Quantitative 0.41 <0.57 mg/L (FEU) 03/31/2024 11:07 PM [facility] Blood VENOUS BLOOD SPECIMEN / Unknown Venipuncture / Unknown 03/31/2024 10:44 PM RENAL MEDICINE PHYSICIAN 03/31/2024 10:49 PM RENAL MEDICINE PHYSICIAN Narrative [facility] - 03/31/2024 11:07 PM RENAL MEDICINE PHYSICIAN Values < 0.50 mg/L(FEU) may be useful to help exclude DVT or PE in patients at low clinical risk for these disorders. For patients above the age of 50, the [employer] recommends using age adjusted cutoff values. AGE X 0.01 calculates the age adjusted cutoff value in mg/L for these patient populations. Hayden Baslaurar DO BKR LAB BLOOD ORDERA BLES Performing Organization Address City/[facility]/[place] [address] * Lipase (03/31/2024 10:44 PM RENAL MEDICINE PHYSICIAN) Lipase 45 15 - 77 Units/L 03/31/2024 11:11 PM [facility] Blood VENOUS BLOOD SPECIMEN / Unknown Venipuncture / Unknown 03/31/2024 10:44 PM RENAL MEDICINE PHYSICIAN 03/31/2024 10:52 PM RENAL MEDICINE PHYSICIAN Hayden Baslaurar DO BKR LAB BLOOD ORDERA BLES Performing Organization Address City/[facility]/[place] [address] * (ABNORMAL) Comprehensive Metabolic Panel (03/31/2024 10:44 PM RENAL MEDICINE PHYSICIAN) Only the most recent of2 resultswithin the time period is included. Fasting Status 03/31/2024 11:11 PM [facility] Sodium 138 135 - 145 mmol/L 03/31/2024 11:11 PM [facility] Potassium 4.1 3.4 - 5.1 mmol/L 03/31/2024 11:11 PM [facility] Chloride 102 97 - 110 mmol/L 03/31/2024 11:11 PM [facility] Carbon Dioxide 25 21 - 32 mmol/L 03/31/2024 11:11 PM [facility] Anion Gap 15 7 - 19 mmol/L 03/31/2024 11:11 PM [facility] Glucose 93 70 - 99 mg/dL 03/31/2024 11:11 PM [facility] BUN 16 6 - 20 mg/dL 03/31/2024 11:11 PM [facility] Creatinine 0.80 0.67 - 1.17 mg/dL 03/31/2024 11:11 PM [facility] Glomerular Filtration Rate >90 >=60 03/31/2024 11:11 PM [facility] Comment:eGFR results = or >6 0 mL/min/1.73m2 = Normal kidney function. Estimated GFR calculated using the CKD-EPI-R (2020) equation that does not include race in the creatinine calculation. BUN/Cr 20 7 - 25 03/31/2024 11:11 PM [facility] Calcium 8.8 8.4 - 10.2 mg/dL 03/31/2024 11:11 PM [facility] Bilirubin, Total 0.2 0.2 - 1.0 mg/dL 03/31/2024 11:11 PM [facility] GOT/AST 26 <=37 Units/L 03/31/2024 11:11 PM [facility] GPT/ALT 46 <64 Units/L 03/31/2024 11:11 PM [facility] Alkaline Phosphatase 110 45 - 117 Units/L 03/31/2024 11:11 PM [facility] Albumin 3.6 3.4 - 5.0 g/dL 03/31/2024 11:11 PM [facility] Protein, Total 8.0 6.4 - 8.2 g/dL 03/31/2024 11:11 PM [facility] Globulin 4.4(H) 2.0 - 4.0 g/dL 03/31/2024 11:11 PM [facility] A/G Ratio 0.8(L) 1.0 - 2.4 03/31/2024 11:11 PM [facility] Blood VENOUS BLOOD SPECIMEN / Unknown Venipuncture / Unknown 03/31/2024 10:44 PM RENAL MEDICINE PHYSICIAN 03/31/2024 10:52 PM [facility] Hayden Carver DO BKR LAB BLOOD ORDERA BLES [facility] [address] [place] [id number] * XR CHEST AP OR PA (03/31/2024 9:57 PM RENAL MEDICINE PHYSICIAN) Anatomical Region Laterality Modality Chest/Thorax N/A Digital Radiogra phy 03/31/2024 10:1 3 PM RENAL MEDICINE PHYSICIAN Impressions 03/31/2024 10:14 PM RENAL MEDICINE PHYSICIAN IMPRESSION: No acute cardiopulmonary disease. Electronically Signed by: Daniel Dawkins MD Signed on: 03/31/2024 10:14 PM Created on Workstation ID: [id number] Signed on Workstation ID: [id number] Narrative 03/31/2024 10:14 PM RENAL MEDICINE PHYSICIAN EXAM: XR CHEST AP OR PA DATE: [...] 03/31/2024 10:14 PM Created on Workstation ID: [id number] Signed on Workstation ID: [id number] Hayden Susycarmen DO IMG XR PROCEDURES * Potassium (02/23/2024 3:33 AM RENAL MEDICINE PHYSICIAN) Potassium 4.4 3.4 - 5.1 mmol/L 02/23/2024 4:08 AM [facility] Blood VENOUS BLOOD SPECIMEN / Unknown Venipuncture / Unknown 02/23/2024 3:33 AM RENAL MEDICINE PHYSICIAN 02/23/2024 3:46 AM RENAL MEDICINE PHYSICIAN Christy Gonzalez MD BKR LAB BLOOD ORDERA BLES Performing Organization Address City/State/[facility] Co de Phone Number [facility] [address] [place] [address] * (ABNORMAL) Drug Abuse Screen, Urine (02/22/2024 11:23 PM RENAL MEDICINE PHYSICIAN) [facility] Amphetamines, Urine Negative Negative 02/23/2024 12:06 AM [facility] Comment:Cutoff = 500 ng/mL Barbiturates, Urine Negative Negative 02/23/2024 12:06 AM [facility] Comment:Cutoff = 200 ng/mL Benzodiazepin es, Urine Negative Negative 02/23/2024 12:06 AM [facility] Comment:Cutoff = 200 ng/mL Cocaine/ Metabolite, Urine Negative Negative 02/23/2024 12:06 AM [facility] Comment:Cutoff = 150 ng/ml Opiates, Urine Positive(A) Negative 02/23/2024 12:06 AM [facility] Comment:Cutoff = 300 ng/mL Phencyclidine , Urine Negative Negative 02/23/2024 12:06 AM [facility] Comment:Cutoff = 25 ng/mL Cannabinoids, Urine Negative Negative 02/23/2024 12:06 AM [facility] Comment:Cutoff = 50 ng/mL Fentanyl, Urine Screen Negative Negative 02/23/2024 12:06 AM [facility] Comment:Cutoff = 1.0 ng/mL Urine URINE SPECIMEN OBTAINED BY CLEAN CATCH PROCEDURE / Unknown 02/22/2024 11:23 PM RENAL MEDICINE PHYSICIAN 02/22/2024 11:29 PM RENAL MEDICINE PHYSICIAN Narrative [facility] - 02/23/2024 12:06 AM RENAL MEDICINE PHYSICIAN Drug screening is for medical purposes only. This is a screening assay only and false-positive or false-negative results can occur. A definitive confirmation by LC/MS may be ordered to confirm clinically questionable results. Christy Gonzalez MD BKR LAB URINE ORDERA BLES [facility] [address] [place] [address] * XR CHEST PA OR AP 1 VIEW (02/22/2024 12:16 PM RENAL MEDICINE PHYSICIAN) Anatomical Region Laterality Modality Chest/Thorax N/A Digital Radiogra phy 02/22/2024 12:2 2 PM RENAL MEDICINE PHYSICIAN Impressions 02/22/2024 12:25 PM RENAL MEDICINE PHYSICIAN IMPRESSION: No acute cardiopulmonary findings. Stable postoperative changes. I, Attending Radiologist Ksenia Owens MD, have reviewed the images and report and concur with these findings interpreted by Resident Radiologist, Haja Saleh DO. Electronically Signed by: Ksenia Owens MD Signed on: 02/22/2024 12:25 PM Created on Workstation ID: [id number] Signed on Workstation ID: [id number] Narrative 02/22/2024 12:25 PM RENAL MEDICINE PHYSICIAN EXAM: XR CHEST AP OR PA HISTORY: [...] 02/22/2024 12:25 PM Created on Workstation ID: [id number] Signed on Workstation ID: [id number] Syed Leyva DO IMG XR PROCEDURES * (ABNORMAL) TROPONIN I POINT OF CARE (02/22/2024 12:10 PM RENAL MEDICINE PHYSICIAN) [facility] TROPONIN I - POINT OF CARE 0.40(H) <0.10 ng/mL 02/22/2024 12:10 PM [facility] Blood BLOOD SPECIMEN / Unknown 02/22/2024 12:10 PM RENAL MEDICINE PHYSICIAN 02/22/2024 12:12 PM RENAL MEDICINE PHYSICIAN Syed Leyva DO BKR LAB PT OF CARE [facility] [address] [place] [phone] * (ABNORMAL) ISTAT8 VENOUS POINT OF CARE (02/22/2024 12:02 PM RENAL MEDICINE PHYSICIAN) Pathologist [facility] BUN - POINT OF CARE 5(L) 6 - 20 mg/dL 02/22/2024 12:02 PM [facility] SODIUM - POINT OF CARE 135 135 - 145 mmol/L 02/22/2024 12:02 PM [facility] POTASSIUM - POINT OF CARE 4.2 3.4 - 5.1 mmol/L 02/22/2024 12:02 PM [facility] CHLORIDE - POINT OF CARE 105 97 - 110 mmol/L 02/22/2024 12:02 PM [facility] TCO2 - POINT OF CARE 23 19 - 24 mmol/L 02/22/2024 12:02 PM [facility] ANION GAP - POINT OF CARE 11 7 - 19 mmol/L 02/22/2024 12:02 PM [facility] HEMATOCRIT - POINT OF CARE 50.0 39.0 - 51.0 % 02/22/2024 12:02 PM [facility] HEMOGLOBIN - POINT OF CARE 17.0 13.0 - 17.0 g/dL 02/22/2024 12:02 PM [facility] GLUCOSE - POINT OF CARE 90 70 - 99 mg/dL 02/22/2024 12:02 PM [facility] CALCIUM, IONIZED - POINT OF CARE 0.90(L) 1.15 - 1.29 mmol/L 02/22/2024 12:02 PM [facility] Creatinine 0.90 0.67 - 1.17 mg/dL 02/22/2024 12:02 PM [facility] Glomerular Filtration Rate >90 >=60 02/22/2024 12:02 PM [facility] Comment:eGFR results = or >6 0 mL/min/1.73m2 = Normal kidney function. Estimated GFR calculated using the CKD-EPI-R (2020) equation that does not include race in the creatinine calculation. Blood BLOOD SPECIMEN / Unknown 02/22/2024 12:02 PM RENAL MEDICINE PHYSICIAN 02/22/2024 12:06 PM RENAL MEDICINE PHYSICIAN Syed SCHMITTR LAB PT OF CARE T [facility] [address] [address] * (ABNORMAL) NT proBNP (02/22/2024 11:56 AM RENAL MEDICINE PHYSICIAN) NT-proBNP 445(H) <=125 pg/mL 02/22/2024 12:37 PM RENAL MEDICINE PHYSICIAN [facility] Blood VENOUS BLOOD SPECIMEN / Unknown Venipuncture / Unknown 02/22/2024 11:56 AM RENAL MEDICINE PHYSICIAN 02/22/2024 12:00 PM RENAL MEDICINE PHYSICIAN Syed Leyva DO BKR LAB BLOOD ORDERA BLES [address] [id number] from Last 3 Months Advance Directives Documents on File Type Date Recorded Patient [employer] Spacel[employer] Expl anation [id number] 02/28/2024 3:12 PM * Full Resuscitation (Latest [...] Agents on File Name Relationship Healthcare Agent [facility] Communication Suad Garnett Daughter Health Care Agent Care Teams 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
--- OUTSIDE RECORDS SUMMARY | 2024-04-09 16:17 | XMS_ITS | Referral Summary ---
Author Organization [facility] Address [address] [place] [address] Care Team Providers Care Restaurant Host Name Role Phone Christy Gonzalez MD Primary Care Provider Abbey Castano [facility] Unavailable Unavailable Encounters Date Type Department Care Team Description 04/05/2024 9:00 AM KITCHEN AND BATH DESIGNER Office Visit [facility] [address] [place] [address] Bal Mayen MD Hypertension, unspecified type (Primary Dx); Hyperlipidemia, unspecified hyperlipidemia type 04/04/2024 Travel 04/04/2024 8:13 PM KITCHEN AND BATH DESIGNER - 04/04/2024 10:24 PM KITCHEN AND BATH DESIGNER Emergency [facility] Emergency Services [address] [place] [address] Héctor Castillo MD Chest pain in adult (Primary Dx) Discharge Disposition: Home or Self Care 03/31/2024 9:12 PM KITCHEN AND BATH DESIGNER - 04/01/2024 2:12 AM KITCHEN AND BATH DESIGNER Emergency [facility] Emergency Services [address] [place] [address] Hayden Carver DO Braunschweig, Leah N, RN Nonspecific chest pain (Primary Dx) Discharge Disposition: Home or Self Care 03/31/2024 Travel 03/25/2024 Telephone [facility] CRS Scheduling [address] [place], [place] Bal Mayen MD [facility] Out[facility] 5 03/18/2024 Telephone [facility] [address] [place] [address] Provider, Population Health Support [facility] Outreach 4 03/14/2024 Case Management [facility] Case Mgmt[facility], A Building [address] [place] [phone] Abbey Castano, SALES STORE CHECKER 03/11/2024 Telephone [facility] Trans[facility] [address] [place] [address] Provider, Population Health Support [facility] Out[facility] 3 03/07/2024 Case Management [facility], A Building [address] [place] [phone] Abbey Castano, SALES STORE CHECKER 03/04/2024 Telephone [facility] [address] [place] [address] Provider, Population Health Support [facility] Outreach 2 02/29/2024 Case Management [facility], A Building [address] [place] [phone] Abbey Castano, SALES STORE CHECKER 02/26/2024 Telephone [facility] [address] [place] [address] Provider, Population Health Support [facility] TCM Outreach 1 02/26/2024 Telephone [facility] [address] [place] [address] Provider, Population Health Support [facility] TCM Outreach 1 02/26/2024 Telephone [facility] [address] [place] [address] Provider, Population Health Support [facility] TCM Outreach 1 02/26/2024 Telephone [facility] [address] [place] [address] Provider, Population Health Support [facility] TCM Outreach 1 02/22/2024 11:26 AM KITCHEN AND BATH DESIGNER - 02/24/2024 2:15 PM KITCHEN AND BATH DESIGNER Emergency [facility] 11 Cardiac Medical [address] [place] [address] Syed Leyva DO Zia, Turgut Z, MD [place], MD Basilio Wakefield, Virginie Cheek, Kizzy Robert, LEIF Brooks, Shannan Aguilar, RN Niall, Adriana Carvajal, Mary Jo Johnson MD Kennedy, Jessica Torres, LEIF Reynolds, Leona Bajwa, LEIF Jay, Anastasiya Ridley, LEIF Lisa, Martin, LEIF Jaramillo, Thu, TOMI Howard, Raisa, LEIF Jurado, Margaret Mason, MARGUERITE Hansen, Roxana Torres, SALES STORE CHECKER Edilma Ghosh, LEIF Sotomayor, Lazara Cheek, MARGUERITE Serna, Adonay, MARGUERITE Majano, Alexa Abraham, LEIF Landa, Love Mason, GARDEN MACHINERY MECHANIC Discharge Disposition: Home or Self Care 02/22/2024 Case Management [facility] Mgmt[facility], A Building [address] [place] [phone] Abbey Castano, SALES STORE CHECKER 02/22/2024 Travel 02/11/2024 Case Management [facility], A Building [address] [place] [phone] Abbey Castano, SALES STORE CHECKER 02/04/2024 Case Management [facility], A Building [address] [place] [phone] Abbey Castano, SALES STORE CHECKER 02/02/2024 Case Management [facility] Mg[facility], A Building [address] [place] [phone] Abbey Castano, SALES STORE CHECKER 01/28/2024 Case Management [facility] Specialty Care Management [id number] [place] [address] Kiya Sequeira RN 01/25/2024 Case Management [facility] Management [id number] [place] [phone] Kiya Sequeira RN 01/24/2024 Telephone [facility] [address] [place] [address] Bal Mayen MD 01/24/2024 Clinical Documentation [facility] [address] [place] [address] Bal Mayen MD 01/21/2024 External Record Outside Facility Provider, Outside 01/18/2024 External Record Outside Facility Provider, Outside 01/17/2024 Case Management [facility] Specialty Care Management [id number] [address] [facility] [address] [place] [phone] Kiya Sequeira RN from Last 3 Months Allergies Active Allergy [...] 04/10/2020 Assessment & Plan (04/10/2020 1:59 PM KITCHEN AND BATH DESIGNER): He had 3 episodes of syncope in [...] 04/29/2015 Assessment & Plan (04/10/2020 1:53 PM KITCHEN AND BATH DESIGNER): Last echo 01/31/2020 with LVEF 57%. Continue current management. 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 Follow up by Dr. Mayen. Snoring 10/12/2011 Hypersomnolence 10/12/2011 Bronchial asthma (CMD) HTN (hypertension) Assessment & Plan (04/10/2020 1:52 PM KITCHEN AND BATH DESIGNER): Continue current management. 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 05/15/2016 03/10/2023 Immunizations Name Administration Dates Next Due COVID Pfizer 12Y+ (Requires Dilution) 01/17/2021 ,12/27/2020 Influenza, split virus, trivalent 12/29/2006,12/2003,01/16/2003 Tdap 11/06/2008 Social History Tobacco Use Types Packs/Day Years [...] In the past 12 months has e Research Journalist, gas, oil, or water [employer] threatened to shut off services in your [...] phone, visiting friends or family, going to faith or club meetings) Patient declined 02/23/2024 Alcohol [...] file Not on file Not on file Last Filed Vital Signs Vital Sign Reading Time Taken Comments Blood Pressure 172/96 04/05/2024 8:59 AM KITCHEN AND BATH DESIGNER Pulse 64 04/05/2024 8:59 AM KITCHEN AND BATH DESIGNER Temperature 36.4 C (97.5 F) 04/04/2024 6:19 PM KITCHEN AND BATH DESIGNER Respiratory Rate 18 04/04/2024 10:22 PM KITCHEN AND BATH DESIGNER Oxygen Saturation 94% 04/04/2024 10:22 PM KITCHEN AND BATH DESIGNER Inhaled Oxygen Concentration - - Weight 109 kg (240 lb 4.8 oz) 04/05/2024 8:59 AM KITCHEN AND BATH DESIGNER Height 177.8 cm (5' 10) 04/05/2024 8:59 AM KITCHEN AND BATH DESIGNER Body Mass Index 34.48 04/05/2024 8:59 AM KITCHEN AND BATH DESIGNER Functional Status Functional Status Response Date of [...] concentrating, remembering or making decisions? No 02/22/2024 Plan of Treatment Upcoming Encounters Date Type Department Care Team (Late st Contact Info) Description 07/05/2024 4:15 PM CDT [facility] [address] [address] Bal Mayen MD [address] [address] Goals Goal Patient Goal Type Associated Problems Recent Progress Patient-Stated? Author Advance Directives General Yes Abbey Castano SALES STORE CHECKER Note: Honoring Choices document sent 02/03 Medical Devices Implanted Type Area Sanforizing Machine Operator Device Identifier Shelf Expiration Date Model / Serial / Lot Cloquet Cv 1x1in Thk1.65mm Ptfe Patch Strl Lf - S. Implanted:Qty: 1 on 04/13/2022 by Javon Marquis MD at [facility] Graft N/A: Chest BD [employer] [id number] 11/23/2026 [id number] / . / [id number] Clip Internal Sm Wide Ligate Horizon Ti - S. Implanted:Qty: 3 on 04/13/2022 by Javon Marquis MD at [facility] Other Implant N/A: Chest [employer] [id number] 10/27/2026 [id number] / . / [id number] Sponge Abs [id number] 12.5x8cm Porcine Geltn Strl Disp Surgfm - S. Implanted:Qty: 1 on 04/13/2022 by Javon Marquis MD at [facility] Other Implant N/A: Chest [employer] [id number] 11/03/2025 1974 / . / [id number] Clip Internal Med Chevron 24 Crtdg Ligate Triangulate Xsect - S. Implanted:Qty: 1 on 04/13/2022 by Javon Marquis MD at [facility] Other Implant N/A: Chest [employer] [id number] 11/23/2026 [id number] / . / [id number] Stent Resolute Intgr Microtrac 3.5mm 22mm - [id number] Implanted:Qty: 1 on 09/30/2014 by Bal Mayen MD at [facility] Stent Left Anterior Descending Artery [id number] . 07/04/2016 [id number] / / [id number] Description:Implant manufact urer/size/type and expiration date verified by proceduralist and procedure staff. Verification initials:cd/jk Procedures Procedure Name Priority Date/Time Associated Diagnosis Comments XR CHEST AP OR PA STAT 04/04/2024 9:3 5 PM KITCHEN AND BATH DESIGNER EXTRA TUBES Routine 04/04/2024 8:54 PM KITCHEN AND BATH DESIGNER CBC WITH AUTOMATED DIFFERENTIAL (PERFORMABLE ONLY) STAT 04/04/2024 8:49 PM KITCHEN AND BATH DESIGNER TROPONIN I, HIGH SENSITIVITY STAT 04/04/2024 8:49 PM KITCHEN AND BATH DESIGNER BASIC METABOLIC PANEL STAT 04/04/2024 8:49 PM KITCHEN AND BATH DESIGNER CBC WITH DIFFERENTIAL STAT 04/04/2024 8:49 PM KITCHEN AND BATH DESIGNER ELECTROCARDIOGRAM 12-LEAD STAT 2024 6:19 PM KITCHEN AND BATH DESIGNER TROPONIN I, HIGH SENSITIVITY STAT 04/01/2024 12:56 AM KITCHEN AND BATH DESIGNER ELECTROCARDIOGRAM 12-LEAD STAT 2024 12:47 AM KITCHEN AND BATH DESIGNER EXTRA TUBES Routine 03/31/2024 10:51 PM KITCHEN AND BATH DESIGNER RAINBOW DRAW STAT 03/31/2024 10:44 PM KITCHEN AND BATH DESIGNER CBC WITH AUTOMATED DIFFERENTIAL (PERFORMABLE ONLY) STAT 03/31/2024 10:44 PM KITCHEN AND BATH DESIGNER D DIMER, QUANTITATIVE STAT 03/31/2024 10:44 PM KITCHEN AND BATH DESIGNER TROPONIN I, HIGH SENSITIVITY STAT 03/31/2024 10:44 PM KITCHEN AND BATH DESIGNER PARTIAL THROMBOPLASTIN TIME STAT 03/31/2024 10:44 PM KITCHEN AND BATH DESIGNER PROTHROMBIN TIME (INR/PT) STAT 2024 10:44 PM KITCHEN AND BATH DESIGNER LIPASE STAT 03/31/2024 10:44 PM KITCHEN AND BATH DESIGNER COMPREHENSIVE METABOLIC PANEL STAT 03/31/2024 10:44 PM KITCHEN AND BATH DESIGNER CBC WITH DIFFERENTIAL STAT 03/31/2024 10:44 PM KITCHEN AND BATH DESIGNER XR CHEST AP OR PA STAT 03/31/2024 9:5 7 PM KITCHEN AND BATH DESIGNER ELECTROCARDIOGRAM 12-LEAD STAT 2024 9:15 PM KITCHEN AND BATH DESIGNER POTASSIUM Routine 02/23/2024 3:33 AM KITCHEN AND BATH DESIGNER DRUG SCREEN, URINE Routine 02/22/2024 11 :23 PM KITCHEN AND BATH DESIGNER TROPONIN I, HIGH SENSITIVITY Routine 02/22/2024 6:06 PM KITCHEN AND BATH DESIGNER XR CHEST AP OR PA STAT 02/22/2024 12: 16 PM KITCHEN AND BATH DESIGNER TROPONIN I POINT OF CARE Routine 024 12:10 PM KITCHEN AND BATH DESIGNER ISTAT CHEM8 - POINT OF CARE Routine 02/22/2024 12:02 PM KITCHEN AND BATH DESIGNER CBC WITH AUTOMATED DIFFERENTIAL (PERFORMABLE ONLY) STAT 02/22/2024 11:56 AM KITCHEN AND BATH DESIGNER NT PROBNP STAT 02/22/2024 11:56 AM KITCHEN AND BATH DESIGNER TROPONIN I, HIGH SENSITIVITY STAT 02/22/2024 11:56 AM KITCHEN AND BATH DESIGNER COMPREHENSIVE METABOLIC PANEL STAT 02/22/2024 11:56 AM KITCHEN AND BATH DESIGNER CBC WITH DIFFERENTIAL STAT 02/22/2024 11:56 AM KITCHEN AND BATH DESIGNER ELECTROCARDIOGRAM 12-LEAD STAT 2023 11:25 AM KITCHEN AND BATH DESIGNER from Last 3 Months Results * XR CHEST AP OR PA (04/04/2024 9:35 PM KITCHEN AND BATH DESIGNER) Anatomical Region Laterality Modality Chest/Thorax N/A Digital Radiogra phy 04/04/2024 9:39 PM KITCHEN AND BATH DESIGNER Impressions 04/04/2024 9:40 PM KITCHEN AND BATH DESIGNER IMPRESSION: No acute cardiopulmonary disease. Electronically Signed by: Ernesto Silva MD Signed on: 04/04/2024 9:40 PM Created on Workstation ID: [id number] Signed on Workstation ID: [id number] Narrative 04/04/2024 9:40 PM KITCHEN AND BATH DESIGNER EXAM: XR CHEST AP OR PA CLINICAL [...] 04/04/2024 9:40 PM Created on Workstation ID: [id number] Signed on Workstation ID: [id number] Héctor Castillo MD IMG XR PROCEDURES * Gold Top (04/04/2024 8:54 PM KITCHEN AND BATH DESIGNER) Only the most recent of2 resultswithin the time period is included. Extra Tube Hold for Add Ons 04/05/2024 5:01 AM KITCHEN AND BATH DESIGNER [facility] Blood VENOUS BLOOD SPECIMEN / Unknown Venipuncture / Unknown 04/04/2024 8:54 PM KITCHEN AND BATH DESIGNER 04/04/2024 8:54 PM KITCHEN AND BATH DESIGNER Héctor Castillo MD BKR LAB BLOOD ORDERA BLES [facility] [address] [place] [address] * Light Blue Top (04/04/2024 8:54 PM KITCHEN AND BATH DESIGNER) Extra Tube Hold for Add Ons 04/05/2024 5:01 AM KITCHEN AND BATH DESIGNER [facility] Blood VENOUS BLOOD SPECIMEN / Unknown Venipuncture / Unknown 04/04/2024 8:54 PM KITCHEN AND BATH DESIGNER 04/04/2024 8:54 PM KITCHEN AND BATH DESIGNER Héctor Castillo MD BKR LAB BLOOD ORDERA BLES Performing Organization Address City/[facility]/ZIP Co de Phone Number [address] [address] * TROPONIN I, HIGH SENSITIVITY (04/04/2024 8:49 PM KITCHEN AND BATH DESIGNER) Only the most recent of5 resultswithin the time period is included. Troponin I, High Sensitivity 24 <77 ng/L 04/04/2024 9:18 PM [facility] Blood VENOUS BLOOD SPECIMEN / Unknown Venipuncture / Unknown 04/04/2024 8:49 PM KITCHEN AND BATH DESIGNER 04/04/2024 8:53 PM KITCHEN AND BATH DESIGNER Héctor JOYR LAB BLOOD ORDERA BLES Performing Organization Address [facility]/ZIP Co de Phone Number [address] [address] * CBC with Automated Differential (performable only) (04/04/2024 8:49 PM KITCHEN AND BATH DESIGNER) Only the most recent of3 resultswithin the time period is included. Pathologist [facility] WBC 8.6 4.2 - 11.0 K/mcL 04/04/2024 9:00 PM [facility] RBC 5.49 4.50 - 5.90 mil/mcL 04/04/2024 9:00 PM [facility] HGB 14.9 13.0 - 17.0 g/dL 04/04/2024 9:00 PM [facility] HCT 46.3 39.0 - 51.0 % 04/04/2024 9:00 PM [facility] MCV 84.3 78.0 - 100.0 fl 04/04/2024 9:00 PM [facility] MCH 27.1 26.0 - 34.0 pg 04/04/2024 9:00 PM [facility] MCHC 32.2 32.0 - 36.5 g/dL 04/04/2024 9:00 PM [facility] RDW-CV 13.2 11.0 - 15.0 % 04/04/2024 9:00 PM [facility] RDW-SD 40.1 39.0 - 50.0 fL 04/04/2024 9:00 PM [facility] PLT 292 140 - 450 K/mcL 04/04/2024 9:00 PM [facility] NRBC 0 <=0 /100 WBC 04/04/2024 9:00 PM [facility] Neutrophil, Percent 54 % 04/04/2024 9:00 PM [facility] Lymphocytes, Percent 33 % 04/04/2024 9:00 PM [facility] Finney, Percent 9 % 04/04/2024 9:00 PM [facility] Eosinophils, Percent 2 % 04/04/2024 9:00 PM [facility] Basophils, Percent 1 % 04/04/2024 9:00 PM [facility] Immature Granulocytes 1 % 04/04/2024 9:00 PM [facility] Absolute Neutrophils 4.6 1.8 - 7.7 K/mcL 04/04/2024 9:00 PM [facility] Absolute Lymphocytes 2.9 1.0 - 4.0 K/mcL 04/04/2024 9:00 PM [facility] Absolute Monocytes 0.8 0.3 - 0.9 K/mcL 04/04/2024 9:00 PM [facility] Absolute Eosinophils 0.2 0.0 - 0.5 K/mcL 04/04/2024 9:00 PM [facility] Absolute Basophils 0.1 0.0 - 0.3 K/mcL 04/04/2024 9:00 PM [facility] Absolute Immature Granulocytes 0.1 0.0 - 0.2 K/mcL 04/04/2024 9:00 PM [facility] Blood VENOUS BLOOD SPECIMEN / Unknown Venipuncture / Unknown 04/04/2024 8:49 PM KITCHEN AND BATH DESIGNER 04/04/2024 8:53 PM KITCHEN AND BATH DESIGNER Héctor Castillo MD BKR LAB BLOOD ORDERA BLES [facility] [address] [place] [address] * (ABNORMAL) Basic Metabolic Panel (04/04/2024 8:49 PM KITCHEN AND BATH DESIGNER) Fasting Status 04/04/2024 9:18 PM [facility] Sodium 141 135 - 145 mmol/L 04/04/2024 9:18 PM [facility] Potassium 4.1 3.4 - 5.1 mmol/L 04/04/2024 9:18 PM [facility] Chloride 110 97 - 110 mmol/L 04/04/2024 9:18 PM [facility] Carbon Dioxide 28 21 - 32 mmol/L 04/04/2024 9:18 PM [facility] Anion Gap 7 7 - 19 mmol/L 04/04/2024 9:18 PM [facility] Glucose 101(H) 70 - 99 mg/dL 04/04/2024 9:18 PM [facility] BUN 26(H) 6 - 20 mg/dL 04/04/2024 9:18 PM [facility] Creatinine 0.74 0.67 - 1.17 mg/dL 04/04/2024 9:18 PM [facility] Glomerular Filtration Rate >90 >=60 04/04/2024 9:18 PM [facility] Comment:eGFR results = or >6 0 mL/min/1.73m2 = Normal kidney function. Estimated GFR calculated using the CKD-EPI-R (2020) equation that does not include race in the creatinine calculation. BUN/Cr 35(H) 7 - 25 04/04/2024 9:18 PM [facility] Calcium 10.2 8.4 - 10.2 mg/dL 04/04/2024 9:18 PM KITCHEN AND BATH DESIGNER [facility] Blood VENOUS BLOOD SPECIMEN / Unknown Venipuncture / Unknown 04/04/2024 8:49 PM KITCHEN AND BATH DESIGNER 04/04/2024 8:53 PM KITCHEN AND BATH DESIGNER Héctor Castillo MD BKR LAB BLOOD ORDERA BLES Performing Organization Address City/[facility]/ZIP Co de Phone Number [facility] [address] [place] [phone] * Electrocardiogram 12-Lead (04/04/2024 6:19 PM KITCHEN AND BATH DESIGNER) Only the most recent of4 resultswithin the time period is included. Ventricular Rate EKG/Min (BPM) 77 MUSE Atrial Rate (BPM) 77 MUSE TN-Interval (MSEC) 138 MUSE QRS-Interval (MSEC) 84 MUSE QT-Interval (MSEC) 382 MUSE QTc 432 MUSE P Bighorn (Degrees) 52 MUSE R Bighorn (Degrees) 17 MUSE T Bighorn (Degrees) 75 MUSE REPORT TEXT Sinus rhythm with premature atrial complexes Abnormal ECG When compared with ECG of 01-APR-2024 00:47, premature atrial complexes are now present Confirmed by HÉCTOR CASTILLO MD ([id number]) on 04/04/2024 9:54:42 PM MUSE 04/04/2024 6:19 PM KITCHEN AND BATH DESIGNER Héctor Castillo MD ECG ORDERABLES Performing Organization Address City/[facility]/ZIP Co de Phone Number MUSE * Bae Top Tube (03/31/2024 10:51 PM KITCHEN AND BATH DESIGNER) Pathologist [facility] Extra Tube Hold for Add Ons 04/01/2024 7:01 AM KITCHEN AND BATH DESIGNER [facility] Blood VENOUS BLOOD SPECIMEN / Unknown 03/31/2024 10:51 PM KITCHEN AND BATH DESIGNER 03/31/2024 10:51 PM KITCHEN AND BATH DESIGNER Hadyen Carver DO BKR LAB BLOOD ORDERA BLES [facility] [address] [place] [address] * Light Green Top (03/31/2024 10:44 PM KITCHEN AND BATH DESIGNER) Extra Tube Hold for Add Ons 04/01/2024 7:01 AM KITCHEN AND BATH DESIGNER [facility] Blood VENOUS BLOOD SPECIMEN / Unknown Venipuncture / Unknown 03/31/2024 10:44 PM KITCHEN AND BATH DESIGNER 03/31/2024 10:52 PM KITCHEN AND BATH DESIGNER Hayden Carver DO BKR LAB BLOOD ORDERA BLES Performing Organization Address City/[facility]/[place] [address] * (ABNORMAL) Partial Thromboplastin Time (PTT) (03/31/2024 10:44 PM KITCHEN AND BATH DESIGNER) PTT 38(H) 22 - 32 sec 03/31/2024 11:07 PM [facility] Blood VENOUS BLOOD SPECIMEN / Unknown Venipuncture / Unknown 03/31/2024 10:44 PM KITCHEN AND BATH DESIGNER 03/31/2024 10:49 PM KITCHEN AND BATH DESIGNER Narrative [facility] - 03/31/2024 11:07 PM KITCHEN AND BATH DESIGNER PTT Therapeutic Range: 45-65 seconds. Hayden Carver DO BKR LAB BLOOD ORDERA BLES Performing Organization Address City/[facility]/[place] [address] * Prothrombin Time (INR/PT) (03/31/2024 10:44 PM KITCHEN AND BATH DESIGNER) Protime- PT 10.4 9.7 - 11.8 sec 03/31/2024 11:07 PM KITCHEN AND BATH DESIGNER [facility] INR 1.0 03/31/2024 11:07 PM KITCHEN AND BATH DESIGNER [facility] Comment:INR Therapeutic Rang e: 2.0 to 3.0 (2.5 to 3.5 recommended for recurrent thrombotic episodes and mechanical prosthetic heart valves.) Blood VENOUS BLOOD SPECIMEN / Unknown Venipuncture / Unknown 03/31/2024 10:44 PM KITCHEN AND BATH DESIGNER 03/31/2024 10:49 PM KITCHEN AND BATH DESIGNER Hayden Bashor DO BKR LAB BLOOD ORDERA BLES Performing Organization Address City/[facility]/ZIP Co de Phone Number [facility] [address] [place] [address] * D Dimer, Quantitative (03/31/2024 10:44 PM KITCHEN AND BATH DESIGNER) [facility] D Dimer, Quantitative 0.41 <0.57 mg/L (FEU) 03/31/2024 11:07 PM KITCHEN AND BATH DESIGNER [facility] Blood VENOUS BLOOD SPECIMEN / Unknown Venipuncture / Unknown 03/31/2024 10:44 PM KITCHEN AND BATH DESIGNER 03/31/2024 10:49 PM KITCHEN AND BATH DESIGNER Narrative [facility] - 03/31/2024 11:07 PM KITCHEN AND BATH DESIGNER Values < 0.50 mg/L(FEU) may be useful to help exclude DVT or PE in patients at low clinical risk for these disorders. For patients above the age of 50, the [employer] recommends using age adjusted cutoff values. AGE X 0.01 calculates the age adjusted cutoff value in mg/L for these patient populations. Hayden eHi Car Rentallaurar DO BKR LAB BLOOD ORDERA BLES Performing Organization Address [facility]/[place] [address] * Lipase (03/31/2024 10:44 PM KITCHEN AND BATH DESIGNER) [facility] Lipase 45 15 - 77 Units/L 03/31/2024 11:11 PM KITCHEN AND BATH DESIGNER [facility] Blood VENOUS BLOOD SPECIMEN / Unknown Venipuncture / Unknown 03/31/2024 10:44 PM KITCHEN AND BATH DESIGNER 03/31/2024 10:52 PM KITCHEN AND BATH DESIGNER Hayden Baslaurar DO BKR LAB BLOOD ORDERA BLES Performing Organization Address City/[facility]/ZIP Co de Phone Number [address] [address] * (ABNORMAL) Comprehensive Metabolic Panel (03/31/2024 10:44 PM KITCHEN AND BATH DESIGNER) Only the most recent of2 resultswithin the time period is included. [facility] Fasting Status 03/31/2024 11:11 PM [facility] Sodium 138 135 - 145 mmol/L 03/31/2024 11:11 PM [facility] Potassium 4.1 3.4 - 5.1 mmol/L 03/31/2024 11:11 PM [facility] Chloride 102 97 - 110 mmol/L 03/31/2024 11:11 PM [facility] Carbon Dioxide 25 21 - 32 mmol/L 03/31/2024 11:11 PM [facility] Anion Gap 15 7 - 19 mmol/L 03/31/2024 11:11 PM [facility] Glucose 93 70 - 99 mg/dL 03/31/2024 11:11 PM [facility] BUN 16 6 - 20 mg/dL 03/31/2024 11:11 PM [facility] Creatinine 0.80 0.67 - 1.17 mg/dL 03/31/2024 11:11 PM [facility] Glomerular Filtration Rate >90 >=60 03/31/2024 11:11 PM [facility] Comment:eGFR results = or >6 0 mL/min/1.73m2 = Normal kidney function. Estimated GFR calculated using the CKD-EPI-R (2020) equation that does not include race in the creatinine calculation. BUN/Cr 20 7 - 25 03/31/2024 11:11 PM [facility] Calcium 8.8 8.4 - 10.2 mg/dL 03/31/2024 11:11 PM [facility] Bilirubin, Total 0.2 0.2 - 1.0 mg/dL 03/31/2024 11:11 PM [facility] GOT/AST 26 <=37 Units/L 03/31/2024 11:11 PM [facility] GPT/ALT 46 <64 Units/L 03/31/2024 11:11 PM [facility] Alkaline Phosphatase 110 45 - 117 Units/L 03/31/2024 11:11 PM [facility] Albumin 3.6 3.4 - 5.0 g/dL 03/31/2024 11:11 PM [facility] Protein, Total 8.0 6.4 - 8.2 g/dL 03/31/2024 11:11 PM [facility] Globulin 4.4(H) 2.0 - 4.0 g/dL 03/31/2024 11:11 PM KITCHEN AND BATH DESIGNER [facility] A/G Ratio 0.8(L) 1.0 - 2.4 03/31/2024 11:11 PM K[employer]EN AND BATH DESIGNER [facility] Blood VENOUS BLOOD SPECIMEN / Unknown Venipuncture / Unknown 03/31/2024 10:44 PM KITCHEN AND BATH DESIGNER 03/31/2024 10:52 PM KITCHEN AND BATH DESIGNER Hayden Bashor DO BKR LAB BLOOD ORDERA BLES [facility] [address] [place] [id number] * XR CHEST AP OR PA (03/31/2024 9:57 PM KITCHEN AND BATH DESIGNER) Anatomical Region Laterality Modality Chest/Thorax N/A Digital Radiogra phy 03/31/2024 10:1 3 PM KITCHEN AND BATH DESIGNER Impressions 03/31/2024 10:14 PM KITCHEN AND BATH DESIGNER IMPRESSION: No acute cardiopulmonary disease. Electronically Signed by: Daniel Dawkins MD Signed on: 03/31/2024 10:14 PM Created on Workstation ID: [id number] Signed on Workstation ID: [id number] Narrative 03/31/2024 10:14 PM KITCHEN AND BATH DESIGNER EXAM: XR CHEST AP OR PA DATE: [...] 03/31/2024 10:14 PM Created on Workstation ID: [id number] Signed on Workstation ID: [id number] Hayden Carver DO IMG XR PROCEDURES * Potassium (02/23/2024 3:33 AM KITCHEN AND BATH DESIGNER) Potassium 4.4 3.4 - 5.1 mmol/L 02/23/2024 4:08 AM [facility] Blood VENOUS BLOOD SPECIMEN / Unknown Venipuncture / Unknown 02/23/2024 3:33 AM KITCHEN AND BATH DESIGNER 02/23/2024 3:46 AM KITCHEN AND BATH DESIGNER Christy Gonzalez MD BKR LAB BLOOD ORDERA BLES [address] [address] * (ABNORMAL) Drug Abuse Screen, Urine (02/22/2024 11:23 PM KITCHEN AND BATH DESIGNER) Amphetamines, Urine Negative Negative 02/23/2024 12:06 AM [facility] Comment:Cutoff = 500 ng/mL Barbiturates, Urine Negative Negative 02/23/2024 12:06 AM [facility] Comment:Cutoff = 200 ng/mL Benzodiazepin es, Urine Negative Negative 02/23/2024 12:06 AM [facility] Comment:Cutoff = 200 ng/mL Cocaine/ Metabolite, Urine Negative Negative 02/23/2024 12:06 AM [facility] Comment:Cutoff = 150 ng/ml Opiates, Urine Positive(A) Negative 02/23/2024 12:06 AM [facility] Comment:Cutoff = 300 ng/mL Phencyclidine , Urine Negative Negative 02/23/2024 12:06 AM KITCHEN AND BATH DESIGNER [facility] Comment:Cutoff = 25 ng/mL Cannabinoids, Urine Negative Negative 02/23/2024 12:06 AM KITCHEN AND BATH DESIGNER [facility] Comment:Cutoff = 50 ng/mL Fentanyl, Urine Screen Negative Negative 02/23/2024 12:06 AM KITCHEN AND BATH DESIGNER [facility] Comment:Cutoff = 1.0 ng/mL Urine URINE SPECIMEN OBTAINED BY CLEAN CATCH PROCEDURE / Unknown 02/22/2024 11:23 PM KITCHEN AND BATH DESIGNER 02/22/2024 11:29 PM KITCHEN AND BATH DESIGNER Narrative [facility] - 02/23/2024 12:06 AM KITCHEN AND BATH DESIGNER Drug screening is for medical purposes only. This is a screening assay only and false-positive or false-negative results can occur. A definitive confirmation by LC/MS may be ordered to confirm clinically questionable results. Christy Gonzalez MD BKR LAB URINE ORDERA [facility] Organization Address City/State/[facility] [place] [address] * XR CHEST PA OR AP 1 VIEW (02/22/2024 12:16 PM KITCHEN AND BATH DESIGNER) Anatomical Region Laterality Modality Chest/Thorax N/A Digital Radiogra phy 02/22/2024 12:2 2 PM KITCHEN AND BATH DESIGNER Impressions 02/22/2024 12:25 PM KITCHEN AND BATH DESIGNER IMPRESSION: No acute cardiopulmonary findings. Stable postoperative changes. I, Attending Radiologist Ksenia Owens MD, have reviewed the images and report and concur with these findings interpreted by Resident Radiologist, Haja Saleh DO. Electronically Signed by: Ksenia Owens MD Signed on: 02/22/2024 12:25 PM Created on Workstation ID: [id number] Signed on Workstation ID: [id number] Narrative 02/22/2024 12:25 PM KITCHEN AND BATH DESIGNER EXAM: XR CHEST AP OR PA HISTORY: [...] 02/22/2024 12:25 PM Created on Workstation ID: [id number] Signed on Workstation ID: [id number] Syed Leyva DO IMG XR PROCEDURES * (ABNORMAL) TROPONIN I POINT OF CARE (02/22/2024 12:10 PM KITCHEN AND BATH DESIGNER) Pathologist [facility] TROPONIN I - POINT OF CARE 0.40(H) <0.10 ng/mL 02/22/2024 12:10 PM KITCHEN AND BATH DESIGNER [facility] Blood BLOOD SPECIMEN / Unknown 02/22/2024 12:10 PM KITCHEN AND BATH DESIGNER 02/22/2024 12:12 PM K[employer]EN AND BATH DESIGNER Syed Leyva DO BKR LAB PT OF CARE [facility] [address] [place] [address] * (ABNORMAL) ISTAT8 VENOUS POINT OF CARE (02/22/2024 12:02 PM KITCHEN AND BATH DESIGNER) BUN - POINT OF CARE 5(L) 6 - 20 mg/dL 02/22/2024 12:02 PM KITCHEN AND BATH DESIGNER [facility] SODIUM - POINT OF CARE 135 135 - 145 mmol/L 02/22/2024 12:02 PM [facility] POTASSIUM - POINT OF CARE 4.2 3.4 - 5.1 mmol/L 02/22/2024 12:02 PM [facility] CHLORIDE - POINT OF CARE 105 97 - 110 mmol/L 02/22/2024 12:02 PM [facility] TCO2 - POINT OF CARE 23 19 - 24 mmol/L 02/22/2024 12:02 PM [facility] ANION GAP - POINT OF CARE 11 7 - 19 mmol/L 02/22/2024 12:02 PM [facility] HEMATOCRIT - POINT OF CARE 50.0 39.0 - 51.0 % 02/22/2024 12:02 PM [facility] HEMOGLOBIN - POINT OF CARE 17.0 13.0 - 17.0 g/dL 02/22/2024 12:02 PM [facility] GLUCOSE - POINT OF CARE 90 70 - 99 mg/dL 02/22/2024 12:02 PM [facility] CALCIUM, IONIZED - POINT OF CARE 0.90(L) 1.15 - 1.29 mmol/L 02/22/2024 12:02 PM [facility] Creatinine 0.90 0.67 - 1.17 mg/dL 02/22/2024 12:02 PM [facility] Glomerular Filtration Rate >90 >=60 02/22/2024 12:02 PM [facility] Comment:eGFR results = or >6 0 mL/min/1.73m2 = Normal kidney function. Estimated GFR calculated using the CKD-EPI-R (2020) equation that does not include race in the creatinine calculation. Blood BLOOD SPECIMEN / Unknown 02/22/2024 12:02 PM KITCHEN AND BATH DESIGNER 02/22/2024 12:06 PM KITCHEN AND BATH DESIGNER Syed Leyva DO BKR LAB PT OF CARE [facility] [facility] [address] [place] [address] * (ABNORMAL) NT proBNP (02/22/2024 11:56 AM KITCHEN AND BATH DESIGNER) NT-proBNP 445(H) <=125 pg/mL 02/22/2024 12:37 PM KITCHEN AND BATH DESIGNER [facility] Blood VENOUS BLOOD SPECIMEN / Unknown Venipuncture / Unknown 02/22/2024 11:56 AM KITCHEN AND BATH DESIGNER 02/22/2024 12:00 PM KITCHEN AND BATH DESIGNER Syed Leyva DO BKR LAB BLOOD ORDERA BLES [facility] [address] [place] [address] from Last 3 Months Advance Directives Documents on File Type Date Recorded Patient Job Boss Expl anation [id number] 02/28/2024 3:12 PM * Full Resuscitation (Latest [...] Agents on File Name Relationship Healthcare Agent Relationsma p Communication Suad Garnett Daughter Health Care Agent Care Teams Restaurant Host Relationship Specialty Start Date End Date Christy Gonzalez MD [address] [address] PCP - General Internal Medicine 12/21/22 Abbey Castano, SALES STORE CHECKER Imaging Scheduler - Population Health Social Work 01/28/24
--- OUTSIDE RECORDS SUMMARY | 2024-04-09 16:17 | XMS_ITS | Encounter Summary ---
Author Organization [facility] Address [address] [place] [address] Care Team Providers Care Reverberatory Furnace Supervisor Name Role Phone Christy Gonzalez MD Primary Care Provider [phone] Abbey Castano LICENSED FUNERAL DIRECTOR Unavailable Unavailable Reason for Visit * Reason Comments Follow-up ongoing chset pain, frequent ED visits * Consult & Treatment (Routine) - Closed Specialty Diagnoses / Procedures Referred By Kacey kaur Referred To Contact Diagnoses Nonspecific chest pain Hayden Carver DO [address] [place] [address] Bal Mayen MD [address] [address] Referral ID Status Reason Start Date Expiration Date Visits Re quested Visits Authorized [id number] Closed 04/01/2024 04/01/2025 1 1 Encounter Details Date Type Department Care Team (Late st Contact Info) Description 04/05/2024 9:00 AM LICENSED DIRECT ENTRY MIDWIFE Office Visit [facility] [address] [id number] Bal Mayen MD [address] [address] Hypertension, unspecified type (Primary Dx); Hyperlipidemia, unspecified hyperlipidemia type Social History Tobacco Use Types Packs/Day Years [...] In the past 12 months has e [employer], gas, oil, or water [employer] threatened to shut off services in your [...] phone, visiting friends or family, going to restorationist or club meetings) Patient declined 02/23/2024 Alcohol [...] Comments Blood Pressure 172/96 04/05/2024 8:59 AM LICENSED DIRECT ENTRY MIDWIFE Pulse 64 04/05/2024 8:59 AM LICENSED DIRECT ENTRY MIDWIFE Temperature - - Respiratory Rate - - Oxygen Saturation - - Inhaled Oxygen Concentration - - Weight 109 kg (240 lb 4.8 oz) 04/05/2024 8:59 AM LICENSED DIRECT ENTRY MIDWIFE Height 177.8 cm (5' 10) 04/05/2024 8:59 AM LICENSED DIRECT ENTRY MIDWIFE Body Mass Index 34.48 04/05/2024 8:59 AM LICENSED DIRECT ENTRY MIDWIFE documented in this encounter Functional Status Functional [...] Instructions* Lizabeth Alicea - 04/05/2024 9:31 AM LICENSED DIRECT ENTRY MIDWIFE Increase losartan to 100 mg daily NSED DIRECT ENTRY MIDWIFE documented in this encounter Ordered Prescriptions Prescription [...] with JOSESITO to LAD on 01/20/2024 in [place], ischemic cardiomyopathy with now normalized EF,hypertension, and dyslipidemia. The patient was admitted to the hospital from 12/17/2022-12/22/2022 after presenting with chest pain and blood pressure. He was discharged with a plan for outpatient follow up. The patient was admittedseveral different times at several different hospitals due to chest pain and hypertension. He was admitted to [facility] in [place] on 01/16/2024 due to chest pain and underwent an initial LHC and repeat LHC with staged PCI. With JOSESITO to the LAD on 01/20/2024. The patient was then admitted to [facility] from 02/22/2024-02/24/2024 d/t hypertensive urgency. Hewas then [...] drug use. DIAGNOSTICS: Stress Test 03/12/2024 @ [facility] 1. No evidence of stress-induced myocardial ischemia. 2. Normal wall motion with left ventricular ejection fraction of 39%. Please correlate with echocardiogram. Echo 03/11/2024 @ [facility] The left ventricular ejection fraction is estimated to be in the normal range at 65%. There is no pericardial effusion. 01/20/24 [place] [facility] [place]: successful IVUS guided PTCA/JOSESITO of proximal LAD with reduction in stenosis from 90% to 0%. [employer]ience Skypoint 3.25mm x 18mm 01/19/24 C [place] [facility] [place] LMT: Mild irregularities.LAD: 90% proximal then [...] to PDA: Patent. 01/18/2024 Stress Test @ [facility] [place]. The stress test is abnormal with [...] after radial sheath removal 2. Continue heparin drip, aspirin. Discontinue plavix. 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 Indications: Manic-Bliyuwwuxe34 tablet 3 ARIPiprazole (ABILIFY) 10 MG tablet [...] x 18mm) to LAD on 01/20/2024 in [place]. Stress test 03/12/2024 at [facility] noted no ischemia. On Ranexa, statin, bASA, and Plavix. Instructed the patient to contact [facility] and [facility] in [place] in order to have the films of the cardiac catheterization sent to the clinic. Recommended increased exercise and better blood pressure control. History of Ischemic Cardiomyopathy: Echo from 03/11/2024 at [facility] noted an LVEF of 65%. Well compensated [...] performed and the decisions made by me. NSED DIRECT ENTRY MIDWIFE documented in this encounter Plan of Treatment Upcoming Encounters Date Type Department Care Team (Late st Contact Info) Description 07/05/2024 4:15 PM CDT [facility] [address] [place] [address] Bal Mayen MD [address] [place], [place] [id number] Scheduled Orders Name Type Priority Associated Diagnoses Orde r Schedule Lipid Panel With Reflex Lab Routine Hyperlipidemia, unspecified hyperlipidemia type Expected: 04/05/2024 (Approximate), Expires: 04/05/2025 Hepatic Function Panel Lab Routine Hyperlipidemia, unspecified hyperlipidemia type Expected: 04/05/2024 (Approximate), Expires: 07/04/2025 documented as of this encounter Goals Goal Patient Goal Type Associated Problems Recent Progress Patient-Stated? Author Advance Directives General Yes Abbey Castano, LICENSED FUNERAL DIRECTOR Note: Honoring Choices document sent 02/03 documented as of this encounter Visit Diagnoses Diagnosis Hypertension, unspecified type- Primary Hyperlipidemia, unspecified hyperlipidemia type documented in this encounter Discontinued Medications Medication Sig Discontinue Reason Start Date End Da te losartan (COZAAR) 50 MG tablet Take 100 mg by mouth daily. Dose Adjustment 01/22/2024 04/05/2024 documented as of this encounter Additional Health Concerns Assessment Noted Time PHQ-9 Depression Total Score: 17 024 8:08 PM LICENSED DIRECT ENTRY MIDWIFE documented as of this encounter Care Teams Reverberatory Furnace Supervisor Relationship Specialty Start Date End Date Christy Gonzalez MD [address] [place] [address] PCP - General Internal Medicine 12/21/22 Abbey Castano MSW Transfer Operator - Population Health Social Work 01/28/24 documented as of this encounter
--- OUTSIDE RECORDS SUMMARY | 2024-04-09 16:17 | XMS_ITS ---
Author Organization [facility] [employer], [employer]. horizontal resaw operator KON Care Team Providers Care Surgery Aide Name Role Phone MANISH MARIE Unavailable Unavailable BETTY SOLITARIO Unavailable Unavailable BETTY SOLITARIO Unavailable Unavailable BETTY SOLITARIO Unavailable Unavailable Unavailable Unavailable Unavailable Encounters Encounter Date Encounter Type Encounter Diagnosis Care Provider Facility Start: 01-16-2024 14:03040 End: 01-21-2024 [id number] Evaluation and management of inpatient Unstable angina BETTY SOLITARIO [facility] ([facility] Start: 01-16-2024 14:030400 Patient encounter procedure Unstable angina BETTY SOLITARIO [facility] ([facility] Start: 01-16-2024 14:0400 Emergency department patient visit Chest pain [facility] ([facility] Medications Current Medications Medication Drug Class(es) Dates Sig (Normalized) Sig (Original) atorvastatin 80 MG Oral Tablet (1 source) HMG-CoA Reductase Inhibitor Start: 01-22-2024 Start: 01-21-2024 End: 01-21-2024 Start: 01-17-2024 End: 01-18-2024 clopidogrel 75 MG Oral Table t (1 source) [id number] Platelet Inhibitor Start: 01-22-2024 Start: 01-20-2024 End: 01-21-2024 Start: 01-20-2024 Start: 01-19-2024 End: 01-19-2024 Start: 01-19-2024 losartan potassium 50 MG Ora l Tablet (7 sources) Angiotensin 2 Receptor Michael Start: 01-22-2024 Start: 01-21-2024 End: 01-21-2024 Start: 01-21-2024 Start: 01-19-2024 End: 01-20-2024 Start: 01-19-2024 Start: 01-17-2024 End: 01-18-2024 12 HR ranolazine 500 MG Exte nded Release Oral Tablet (1 source) Anti-anginal Start: 01-21-2024 Start: 01-18-2024 End: 01-21-2024 Start: 01-18-2024 SODIUM CHLORIDE 0.9 % INTRAV ENOUS SOLUTION *BAG* (6 sources) Start: 01-20-2024 End: 01-20-2024 125 ML/HR TO START 0600 AM O F PROCEDURE DC AFTER 1 LITER COMPLETED UNLESS DIRECTED OTHERWISE Start: 01-20-2024 End: 01-20-2024 125 ML/HR TO START 0600 AM O F PROCEDURE DC AFTER 1 LITER COMPLETED UNLESS DIRECTED OTHERWISE Completed/Discontinued Medications Medication Drug Class(es) Dates Sig (Normalized) Sig (Original) acetaminophen (1 source) Start: 01-16-2024 End: 01-16-2024 MAX acetaminophen dose 4000 mg/24 hours Start: 01-16-2024 MAX acetaminop hen dose 4000 mg/24 hours ALBUTEROL SULFATE CONCENTRAT E 2.5 MG/0.5 ML SOLUTION FOR NEBULIZATION (6 sources) Start: 01-16-2024 End: 01-21-2024 Start: 01-16-2024 ALUMINUM-MAG HYDROXIDE-SIMET HICONE 400 MG-400 MG-40 MG/5 ML ORAL SUSP (8 sources) Start: 01-16-2024 End: 01-21-2024 amLODIPine (7 sources) Dihydropyridine Calcium Channel Michael Start: 01-17-2024 End: 01-21-2024 Start: 01-17-2024 aspirin 81 MG Chewable Tablet (2 sources) Platelet Aggregation Inhibitor, Nonsteroidal Anti-inflammatory Drug Start: 01-21-2024 End: 01-21-2024 Start: 01-17-2024 End: 01-20-2024 Start: 01-16-2024 End: 01-16-2024 calcium (9 sources) Phosphate Binder, Calcium Start: 01-16-2024 End: 01-21-2024 Start: 01-16-2024 carvedilol (2 sources) alpha-Adrenergic Michael, beta-Adrenergic Michael Star t: 01-17-2024 End: 01-21-2024 Start: 01-17-2024 Start: 01-16-2024 Start: 01-16-2024 End: 01-17-2024 ezetimibe (8 sources) Dietary Cholesterol Absorption Inhibitor Start: 2023 End: 01-21-2024 Start: 01-17-2024 FENTANYL (PF) 50 MCG/ML INJE CTION SOLUTION REPACK WRAP (1 source) Start: 01-16-2024 End: 01-16-2024 Start: 01-16-2024 FUROSEMIDE 10 MG/ML INJECTIO N SOLUTION (2 sources) Start: 01-19-2024 End: 01-20-2024 HEPARIN (PORCINE) 1,000 UNIT /ML INJECTION SOLUTION (1 source) Start: 01-18-2024 End: 01-18-2024 Start: 01-18-2024 HEPARIN (PORCINE) 1,000 UNIT /ML INJECTION SOLUTION -UK LOW ANTI-XA CALCULATOR (3 sources) Start: 01-18-2024 End: 01-19-2024 Start: 01-18-2024 HEPARIN (PORCINE) 25,000 UNIT/500 ML (50 UNIT/ML) IN DEXTROSE 5 % IV (3 sources) Start: 01-18-2024 End: 01-19-2024 Low Intensity Start initial therapy at 12 Units/Kg/hr, the MAXIMUM rate of initial infusion is 1000 Units/hr. *Please note* - when programming the pump, use 'non-weight based dosing' in the drug jamie Start: 01-18-2024 Low Intensity Start initial therapy at 12 Units/Kg/hr, the MAXIMUM rate of initial infusion is 1000 Units/hr. *Please note* - when programming the pump, use 'non-weight based dosing' in the drug jamie HYDROCODONE 5 MG-ACETAMINOPH EN 325 MG TABLET (6 sources) Start: 01-17-2024 End: 01-21-2024 MAX acetaminophen dose 4000 mg/24 hours Start: 01-17-2024 MAX acetaminop hen dose 4000 mg/24 hours ibuprofen (7 sources) Nonsteroidal Anti-inflammatory Drug Start: 01-16-2024 End: 01-21-2024 Do not administer within 6 hours of ketorolac IV MAX 3200 mg/day isosorbide (2 sources) Nitrate Vasodilator Start: 01-18-2024 End: 01-19-2024 Start: 01-18-2024 End: 01-18-2024 Start: 01-18-2024 Start: 01-17-2024 Start: 01-17-2024 End: 01-17-2024 KETOROLAC 30 MG/ML (1 ML) INJECTION SOLUTION (3 sources) Start: 01-16-2024 End: 01-19-2024 Do not administer within 6 h ours of po ibuprofen Start: 01-16-2024 End: 01-18-2024 Do not administer within 6 h ours of po ibuprofen LORazepam (8 sources) Benzodiazepine Start: 01-16-2024 End: 01-21-2024 MORPHINE 4 MG/ML INJECTION W RAP (2 sources) Start: 01-16-2024 End: 01-20-2024 Start: 01-16-2024 Start: 01-16-2024 End: 01-16-2024 NALOXONE 0.4 MG/ML INJECTION SOLUTION (7 sources) Start: 01-16-2024 End: 01-21-2024 If respiratory rate is less than 8 breaths/minute or patient is difficult to arouse stop any narcotics and contact physician. Administer slow IV push. Repeat as ordered until patient's respiratory r NICOTINE 21 MG/24 HR DAILY TRANSDERMAL PATCH (11 sources) Start: 01-16-2024 End: 01-17-2024 remove at bedtime NITROGLYCERIN 0.4 MG SUBLING UAL TABLET (2 sources) Start: 01-16-2024 End: 01-21-2024 May administer up to 3 doses per episode. Start: 01-16-2024 May administer up to 3 doses per episode. Start: 01-16-2024 End: 01-16-2024 May administer up to 3 doses per episode. NM ISO TC99M SESTAMIBI (MIBI ) PER DOSE (1 source) Start: 01-18-2024 End: 01-18-2024 Start: 01-18-2024 Start: 01-18-2024 End: 01-18-2024 Start: 01-18-2024 ONDANSETRON HCL (PF) 4 MG/2 ML INJECTION SOLUTION *2 ML VIAL* (2 sources) Start: 01-16-2024 End: 01-21-2024 First option for nausea/vomi ting Start: 01-16-2024 First option f or nausea/vomiting Start: 01-16-2024 End: 01-16-2024 Start: 01-16-2024 Start: 01-16-2024 Start: 01-16-2024 End: 01-16-2024 PANTOPRAZOLE 40 MG TABLET,DE LAYED RELEASE (8 sources) Start: 01-17-2024 End: 01-21-2024 Start: 01-17-2024 PERFLUTREN LIPID MICROSPHERE S 1.1 MG/ML INTRAVENOUS SUSPENSION (1 source) Start: 01-18-2024 End: 01-18-2024 Start: 01-18-2024 POLYETHYLENE GLYCOL 3350 17 GRAM ORAL POWDER PACKET (9 sources) Start: 01-17-2024 End: 01-21-2024 Hold for loose stools. Start: 01-17-2024 Hold for loose stools. QUEtiapine (8 sources) Atypical Antipsychotic Start: 01-16-2024 End: 01-21-2024 Start: 01-16-2024 REGADENOSON 0.4 MG/5 ML INTR AVENOUS SYRINGE (2 sources) Start: 01-18-2024 End: 01-18-2024 Start: 01-18-2024 SENNOSIDES 8.6 MG-DOCUSATE S ODIUM 50 MG TABLET (8 sources) Start: 01-16-2024 End: 01-21-2024 Hold for loose stools. Start: 01-16-2024 Hold for loose stools. SODIUM CHLORIDE 0.9 % (FLUSH ) INJECTION SYRINGE (7 sources) Start: 01-20-2024 End: 01-21-2024 Start: 01-19-2024 End: 01-20-2024 Start: 01-19-2024 Start: 01-16-2024 End: 01-21-2024 Start: 01-16-2024 spironolactone (8 sources) Aldosterone Antagonist Start: 01-17-2024 End: 01-21-2024 Start: 01-17-2024 zolpidem (9 sources) gamma-Aminobutyric Acid-ergic Agonist Start: End: 01-21-2024 Payers Date Payer Normalized Payer MEDICAID OUT OF STATE MEDICAID [id number] [employer] [place] [id number] MEDICAID OUT OF STATE MEDICAID [employer] [place] Problems Active Problems Problem Classification Problem Date Last Recorded Documented Date Chronic Condition Indicator Provider Complication of device; implant or graft (3 sources) 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; Translations: [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] 01-16-2024 Chronic BETTY KASSI Coronary atherosclerosis and other heart disease (3 sources) Unstable angina; Translations: [Unstable angina] 01-16-2024 Chronic Nonspecific chest pain (4 sources) Chest pain, unspecified; Translations: [Chest pain, unspecified] 01-21-2024 Episodic Results Test Name Value Interpretation Reference Range Facility Date Time Result Note BASIC METABOLIC PANELon 12-28 Sodium [Moles/Vol] 138 mmol/L 136-145 mmol/L [facility] ([facility]) [facility] [place] 01-20 07:12 -0400 Potassium [Moles/Vol] 5.1 mmol/L 3.5-5.1 mmol/L [facility] ([facility]) [facility] [place] 01-20 07:12 -0400 Chloride [Moles/Vol] 108 mmol/L High 98-107 mmol/L [facility] ([facility]) [facility] [place] 01-20 07:12 -0400 CO2 [Moles/Vol] 27 mmol/L 21-32 mmol/L [facility] ([facility]) [facility] [place] 01-20 07:12 -0400 Anion gap 3 in Serum or Plasma 3 Low 5-15 mmol/L [facility] ([facility]) [facility] [place] 01-20 07:12 -0400 Urea nitrogen [Mass/Vol] 21 mg/dL 8-26 mg/dL [facility] ([facility]) [facility] [place] 01-20 07:12 -0400 Creatinine [Mass/volume] in Serum or Plasma 1.06 mg/dL 0.55-1.30 mg/dL [facility] ([facility]) [facility] [place] 01-20 07:12 -0400 Glucose [Mass/volume] in Serum or Plasma 85 mg/dL 70-115 mg/dL [facility] ([facility]) [facility] [place] 01-20 07:12 -0400 Calcium [Mass/Vol] 9.0 mg/dL 8.5-10.0 mg/dL [facility] ([facility]) [facility] [place] 01-20 07:12 -0400 Glomerular filtration rate/1.73 sq M.predicted [Volume Rate/Area] in Serum, Plasma or Blood by Creatinine-base d formula (MDRD) 83 mL/min/{1.73_m2 } >=60 mL/min/1.73 m2 [facility] ([facility]) [facility] [place] 01-20 07:12 -0400 (L) GFR <60: CHRONIC KIDNEY DISEASE,if found over a 3 month period. ~GFR <15: KIDNEY FAILURE CBC WITH AUTO DIFFERENTIALon 01-21-2024 WBC (Bld) [#/Vol] 8.23 10*3/uL 4.30-10.80 K/uL [facility] ([facility]) [facility] [place] 01-20 07:12 -0400 RBC (Bld) [#/Vol] 5.08 10*6/uL 4.70-6.10 M/uL [facility] ([facility]) [facility] [place] 01-20 07:12 -0400 Hemoglobin [Mass/volume] in Blood 14.4 g/dL 14.0-18.0 g/dL [facility] ([facility]) [facility] [place] 01-20 07:12 -0400 Hematocrit [Volume Fraction] of Blood by Automated count 43.9 42.0-52.0 % [facility] ([facility]) [facility] [place] 01-20 07:12 -0400 MCV (RBC) [Entitic vol] 86 fL 81-99 fL [facility] ([facility]) [facility] [place] 01-20 07:12 -0400 MCH (RBC) [Entitic mass] 28.3 pg 26.0-34.0 pg [facility] ([facility]) [facility] [place] 01-20 07:12 -0400 MCHC (RBC) [Mass/Vol] 32.8 g/dL 31.0-37.0 g/dL [facility] ([facility]) [facility] [place] 01-20 07:12 -0400 Platelet mean volume (Bld) [Entitic vol] 9.8 fL 9.4-12.4 fL [facility] ([facility]) [facility] [place] 01-20 07:12 -0400 Platelets [#/volume] in Blood by Automated count 243 150-400 K/uL [facility] ([facility]) [facility] [place] 01-20 07:12 -0400 Erythrocyte distribution width (RBC) [Ratio] 12.6 % 11.5-14.5 % [facility] ([facility]) [facility] [place] 01-20 07:12 -0400 RDW-SD 39.9 35.1-43.9 fL [facility] ([facility]) [facility] [place] 01-20 07:12 -0400 Nucleated RBC, Absolute 0.00 K/uL [facility] ([facility]) [facility] [place] 01-20 07:12 -0400 Nucleated erythrocytes [#/volume] in Blood 0.0 0.0 /100 WBC [facility] ([facility]) [facility] [place] 01-20 07:12 -0400 Neutrophils 59.9 13.0-69.0 % [facility] ([facility]) [facility] [place] 01-20 07:12 -0400 Lymphocytes 23.7 Low 24.0-44.0 % [facility] ([facility]) [facility] [place] 01-20 07:12 -0400 Monocytes 12.3 High 1.0-10.0 % [facility] ([facility]) [facility] [place] 01-20 07:12 -0400 Eosinophils 3.2 0.0-6.0 % [facility] ([facility]) [facility] [place] 01-20 07:12 -0400 Basophils 0.5 0.0-2.0 % [facility] ([facility]) [facility] [place] 01-20 07:12 -0400 Immature Granulocytes 0.4 0.0-0.5 % [facility] ([facility]) [facility] [place] 01-20 07:12 -0400 Neutrophils, Absolute 4.94 1.55-7.13 K/uL [facility] ([facility]) [facility] [place] 01-20 07:12 -0400 Lymphocytes, Absolute 1.95 1.00-4.80 K/uL [facility] ([facility]) [facility] [place] 01-20 07:12 -0400 Monocytes, Absolute 1.01 0.40-1.08 K/uL [facility] ([facility]) [facility] [place] 01-20 07:12 -0400 Eosinophils, Absolute 0.26 0.00-0.65 K/uL [facility] ([facility]) [facility] [place] 01-20 07:12 -0400 Basophils [#/volume] in Blood by Automated count 0.04 0.00-0.11 K/uL [facility] ([facility]) [facility] [place] 01-20 07:12 -0400 Immature Granulocytes, Absolute 0.03 0.00-0.10 K/uL [facility] ([facility]) [facility] [place] 01-20 07:12 -0400 BASIC METABOLIC PANELon 10- Sodium [Moles/Vol] 139 mmol/L 136-145 mmol/L [facility] ([facility]) [facility] [place] 01-19 07:03 -0400 Potassium [Moles/Vol] 4.3 mmol/L 3.5-5.1 mmol/L [facility] ([facility]) [facility] [place] 01-19 07:03 -0400 Chloride [Moles/Vol] 107 mmol/L 98-107 mmol/L [facility] ([facility]) [facility] [place] 01-19 07:03 -0400 CO2 [Moles/Vol] 27 mmol/L 21-32 mmol/L [facility] ([facility]) [facility] [place] 01-19 07:03 -0400 Anion gap 3 in Serum or Plasma 5 5-15 mmol/L [facility] ([facility]) [facility] [place] 01-19 07:03 -0400 Urea nitrogen [Mass/Vol] 23 mg/dL 8-26 mg/dL [facility] ([facility]) [facility] [place] 01-19 07:03 -0400 Creatinine [Mass/volume] in Serum or Plasma 1.04 mg/dL 0.55-1.30 mg/dL [facility] ([facility]) [facility] [place] 01-19 07:03 -0400 Glucose [Mass/volume] in Serum or Plasma 86 mg/dL 70-115 mg/dL [facility] ([facility]) [facility] [place] 01-19 07:03 -0400 Calcium [Mass/Vol] 8.5 mg/dL 8.5-10.0 mg/dL [facility] ([facility]) [facility] [place] 01-19 07:03 -0400 Glomerular filtration rate/1.73 sq M.predicted [Volume Rate/Area] in Serum, Plasma or Blood by Creatinine-base d formula (MDRD) 85 mL/min/{1.73_m2 } >=60 mL/min/1.73 m2 [facility] ([facility]) [facility] [place] 01-19 07:03 -0400 (L) GFR <60: CHRONIC KIDNEY DISEASE,if found over a 3 month period. ~GFR <15: KIDNEY FAILURE HEPARIN ANTI-XA LEVELon 12-28 Heparin Anti-Xa 0.16 IU/mL [facility] ([facility]) [facility] [place] 01-18 01:05 -0400 Heparin Anti-Xa 0.37 IU/mL [facility] ([facility]) [facility] [place] 01-18 07:30 -0400 N-TERMINAL PROBNPon 01-19-20 24 proBNP 288 High <125 pg/mL [facility] ([facility]) [facility] [place] 01-18 12:42 -0400 APTTon 01-18-2024 aPTT in Platelet poor plasma by Coagulation assay 53.2 s High 28.0-37.6 sec [facility] ([facility]) [facility] [place] 01-17 16:14 -0400 CBC NO DIFFon 01-18-2024 WBC (Bld) [#/Vol] 9.54 10*3/uL 4.30-10.80 K/uL [facility] ([facility]) [facility] [place] 01-17 16:14 -0400 RBC (Bld) [#/Vol] 5.38 10*6/uL 4.70-6.10 M/uL [facility] ([facility]) [facility] [place] 01-17 16:14 -0400 Hemoglobin [Mass/volume] in Blood 15.1 g/dL 14.0-18.0 g/dL [facility] ([facility]) [facility] [place] 01-17 16:14 -0400 Hematocrit [Volume Fraction] of Blood by Automated count 45.4 42.0-52.0 % [facility] ([facility]) [facility] [place] 01-17 16:14 -0400 MCV (RBC) [Entitic vol] 84 fL 81-99 fL [facility] ([facility]) [facility] [place] 01-17 16:14 -0400 MCH (RBC) [Entitic mass] 28.1 pg 26.0-34.0 pg [facility] ([facility]) [facility] [place] 01-17 16:14 -0400 MCHC (RBC) [Mass/Vol] 33.3 g/dL 31.0-37.0 g/dL [facility] ([facility]) [facility] [place] 01-17 16:14 -0400 Platelet mean volume (Bld) [Entitic vol] 9.5 fL 9.4-12.4 fL [facility] ([facility]) [facility] [place] 01-17 16:14 -0400 Platelets [#/volume] in Blood by Automated count 237 150-400 K/uL [facility] ([facility]) [facility] [place] 01-17 16:14 -0400 Erythrocyte distribution width (RBC) [Ratio] 12.8 % 11.5-14.5 % [facility] ([facility]) [facility] [place] 01-17 16:14 -0400 RDW-SD 38.8 35.1-43.9 fL [facility] ([facility]) [facility] [place] 01-17 16:14 -0400 Nucleated RBC, Absolute 0.00 K/uL [facility] ([facility]) [facility] [place] 01-17 16:14 -0400 Nucleated erythrocytes [#/volume] in Blood 0.0 0.0 /100 WBC [facility] ([facility]) [facility] [place] 01-17 16:14 -0400 HEPARIN ANTI-XA LEVELon 12-28 Heparin Anti-Xa < IU/mL [facility] ([facility]) [facility] [place] 01-17 16:14 -0400 PROTIME-INRon 01-18-2024 Prothrombin time (PT) 11.6 s 10.0-12.8 sec [facility] ([facility]) [facility] [place] 01-17 16:14 -0400 INR Coag (PPP) [Relative time] 1.0 {INR} [facility] ([facility]) [facility] [place] 01-17 16:14 0400 (L) THERAPEUTIC GOALS FOR PATIENTS ON ORAL ANTICOAGULANTS~ Standard risk factors for thromboembolic disease: INR of 2.0-3.0~ Higher risk of thrombosis (e.g mech heart valve): INR of 2.5-3.5 STRESS TEST WITH MYOCARDIAL PERFUSIONon 01-18-2024 NM ISO TC99M SESTAMIBI (MIBI) PER DOSE 7.7~25.6 millicurie [facility] ([facility]) [facility] [place] STRESS TEST WITH MYOCARDIAL PERFUSION History/Risk Factors~Hyperte nsion: Yes~Myocardial Infarction (ND): Yes~Tobacco Use: Current - Every Day~~History/Ri sk Factors~ Chest pain. Post ND X 2. +Fam Hx. Shortness of breath.~~~Prior Interventions~C ABG: Yes~~~Report Signatures~MPI SPECT Finalized by Kai Mckoy MD on 01/18/2024 01:37 PM~Stress Finalized by Kai Mckoy MD on 01/18/2024 01:37 PM~~~Patient Info~Name: Catherine Garnett~Age: 53 years~: 1970~Gender : Male~ ~Acces rachelle #: [id number]~Ht: 68 in~Wt: 253 lbs~BSA: 2.40 m2~HR: 56 bpm~BP: 135~/ 72 mmHg~Exam Date: 01/18/2024 10:48 AM~Patient Status: O~Admit Date: 01/16/2024~Site : [facility]~~Any Known Allergies: See in Epic~~Exam Type: STRESS TEST WITH MYOCARDIAL PERFUSION~~Stud y Info~Indication s~ - Chest pain, nonspecific~~St aff~Ordering Physician: Kai Mckoy MD~Attending Physician: Betty Solitario~Lubrication Equipment Servicer: Santana VERDINMT~Nurse: Alix Zapata~~Accoun t #: [phone]~~ ~Summary~ 1. The stress test is abnormal with large ischemia.~ 2. A large sized, mild to severe perfusion defect in the anterior,~anter oseptal, septal, inferior, lateral, and apex bronson is partially~rever sible. Using attenuation correction improved but not completely back to~normal. So this suggestive of ischemia.~ 3. Normal TID score.~ 4. EKG is not diagnostic as target HR was not achieved.~ 5. Scan indicates high risk for cardiac events.~~~Stres s ECG Details~Protoco l: Lexiscan~Rest HR: 56 bpm~Peak HR: 70 bpm~Rest Sys BP: 135 mmHg~Peak Sys BP: 110 mmHg~Max Pred HR: 165 bpm~% Max Pred HR: 42 %~Target HR: 140 bpm~Max RPP: 7,700 bpm*mmHg~Rest Hankins BP: 72 mmHg~Peak Hankins BP: 64 mmHg~Total Dose: 0.4 mg~Stress ECG~ Chest pain. Intense chest pain. Headache, pain around eyes. Headache, jaw~pain, neck pain. Left arm pain, pain around eyes. Left arm pain/numbness.~ Burning in chest headache. headache.~Targe t HR Summary~ Not applicable due to Lexiscan stress protocol.~Termi nation Reason~ Protocol Completed.~Card iac Symptoms~ Chest pain. Shortness of breath.~~~Radio pharmaceutical: Tc-99m~~Adminis tration Site: IV - left antecubital~~Ad ministered By: Thomas VERDINMT~~Camera Used: OzVision~~Radioph armaceutical: Tc-99m~~Adminis tration Site: IV - right forearm~~Admini stered By: Thomas VERDINMT~~Camera Used: [email or web address]~~Image Protocol~Protoc ol: Rest/Stress 1 Day~Rest~Radiop harmaceutical Dose: -1.0 mCi~Imaging Date Time: 01/18/2024 11:04 AM~Stress~Radio pharmaceutical Dose: -1.0 mCi~Imaging Date Time: 01/18/2024 11:46 AM~~Injection to Imaging Time: 30 min~~Injection to Imaging Time: 20 min~~~SPECT Results~Perfusi on Findings~A large sized, mild to severe perfusion defect in the anterior, anteroseptal,~s eptal, inferior, lateral, and apex bronson is partially reversible. Using~attenuati on correction improved but not completely back to normal. So this~suggestive of ischemia.~Summe d Difference Score: 9~Summed Stress Score: 19~Summed Rest Score: 10~~Perfusion Quantitative Results~Stress Extent~Global Stress Extent 31 %~Rest Extent~Global Rest Extent: 29 %~Ischemia Extent~Global Ischemia Extent: 22 %~~~Functional Results~------- ---~Name Value Normal~-------- --~~Stress~---- ------~Stress LV Ejection Fraction 67 % 55-70 ~ Stress LV End Systolic~Volume 49 ml ~ Nuclear Stress Cardiac~Output 6.2 l/min ~ Stress LV End Diastolic~Volum e 148 ml ~ Transient Ischemic~Dilata tion 1.09 ~ Nuclear Stress Myocardial~Mass 168 g~Functional Results~------- ---~Name Value Normal~-------- --~~Rest~------ ----~ Resting LV Ejection~Fracti on 51 % 55-70 ~ Resting LV End Systolic~Volume 63 ml ~ Nuclear Rest Myocardial~Mass 153 g ~ Resting LV End Diastolic~Volum e 129 ml ~Nuclear Rest Cardiac Output 3.7 l/min~Functiona l Findings~ The septal wall, mid inferoseptal, and mid anteroseptal are hypokinetic with~stress. The basal anteroseptal is akinetic with stress. All other bronson appear~normal with stress. The apex, inferoseptal wall, and basal anteroseptal are~hypokinetic at rest. The septal wall, and mid anteroseptal are akinetic at~rest. All other bronson appear normal at rest. Gated SPECT imaging reveals~normal myocardial wall thickening. Resting left ventricular ejection fraction~is normal, 51 %. Post stress left ventricular ejection fraction is normal, 67~%. [facility] ([facility]) [facility] [place] nullon 01-18-2024 Body weight Measured 115.1 kg [facility] 01-17 02:42 -0400 LIPID PANELon 01-17-2024 Cholesterol [Mass/volume] in Serum or Plasma 214 mg/dL High <201 mg/dL [facility] ([facility]) [facility] [place] 01-16 18:16 -0400 Triglyceride [Mass/volume] in Serum or Plasma 280 mg/dL High 20-170 mg/dL [facility] ([facility]) [facility] [place] 01-16 18:16 -0400 Cholesterol in HDL [Mass/volume] in Serum or Plasma 30 mg/dL Low 40-60 mg/dL [facility] ([facility]) [facility] [place] 01-16 18:16 -0400 (L) The National Cholesterol Education Program (NCEP) recommends ~ the classification below for interpretation of HDL ~ Cholesterol: ~ ~ Major risk factor for heart disease < 40 mg/dL ~ Negative risk factor for heart disease > 60 mg/dL LDL Cholesterol, Direct 142 High <100 mg/dL [facility] ([facility]) [facility] [place] 01-16 18:16 -0400 (L) The following NCEP ranges for patient classification are used for the ~ prevention and management of coronary heart disease. ~ ~ LDL Cholesterol mg/dL ~ <100 Optimal ~ 100 - 129 Near or above optimal ~ 130 - 159 Borderline high ~ 160 - 189 High ~ >190 Very high MRSA SCREEN BY PCRon 024 MRSA PCR Not detected Not Detected [facility] ([facility]) [facility] [place] 01-16 04:46 -0400 TROPONIN, HIGH SENSITIVITYon 01-17-2024 High Sensitivity Troponin 16.0 <78.5 ng/L [facility] ([facility]) [facility] [place] 01-16 07:21 -0400 (L) Biotin concentrations >300 ng/mL may lead to falsely depressed patient results. nullon 01-17-2024 Body weight Measured 113.399 kg [facility] ([facility]) [facility] [place] 01-16 05:36 -0400 CBC NO DIFFon 01-16-2024 WBC (Bld) [#/Vol] 9.77 10*3/uL 4.30-10.80 K/uL [facility] ([facility]) [facility] [place] 01-15 14:57 -0400 RBC (Bld) [#/Vol] 6.08 10*6/uL 4.70-6.10 M/uL [facility] ([facility]) [facility] [place] 01-15 14:57 -0400 Hemoglobin [Mass/volume] in Blood 17.1 g/dL 14.0-18.0 g/dL [facility] ([facility]) [facility] [place] 01-15 14:57 -0400 Hematocrit [Volume Fraction] of Blood by Automated count 51.6 42.0-52.0 % [facility] ([facility]) [facility] [place] 01-15 14:57 -0400 MCV (RBC) [Entitic vol] 85 fL 81-99 fL [facility] ([facility]) [facility] [place] 01-15 14:57 -0400 MCH (RBC) [Entitic mass] 28.1 pg 26.0-34.0 pg [facility] ([facility]) [facility] [place] 01-15 14:57 -0400 MCHC (RBC) [Mass/Vol] 33.1 g/dL 31.0-37.0 g/dL [facility] ([facility]) [facility] [place] 01-15 14:57 -0400 Platelet mean volume (Bld) [Entitic vol] 9.5 fL 9.4-12.4 fL [facility] ([facility]) [facility] [place] 01-15 14:57 -0400 Platelets [#/volume] in Blood by Automated count 325 150-400 K/uL [facility] ([facility]) [facility] [place] 01-15 14:57 -0400 Erythrocyte distribution width (RBC) [Ratio] 12.8 % 11.5-14.5 % [facility] ([facility]) [facility] [place] 01-15 14:57 -0400 RDW-SD 39.7 35.1-43.9 fL [facility] ([facility]) [facility] [place] 01-15 14:57 -0400 Nucleated RBC, Absolute 0.00 K/uL [facility] ([facility]) [facility] [place] 01-15 14:57 -0400 Nucleated erythrocytes [#/volume] in Blood 0.0 0.0 /100 WBC [facility] ([facility]) [facility] [place] 01-15 14:57 -0400 COMPREHENSIVE METABOLIC PANE Russell 01-16-2024 Sodium [Moles/Vol] 138 mmol/L 136-145 mmol/L [facility] ([facility]) [facility] [place] 01-15 14:57 -0400 Potassium [Moles/Vol] 4.2 mmol/L 3.5-5.1 mmol/L [facility] ([facility]) [facility] [place] 01-15 14:57 -0400 Chloride [Moles/Vol] 107 mmol/L 98-107 mmol/L [facility] ([facility]) [facility] [place] 01-15 14:57 -0400 CO2 [Moles/Vol] 28 mmol/L 21-32 mmol/L [facility] ([facility]) [facility] [place] 01-15 14:57 -0400 Anion gap 3 in Serum or Plasma 3 Low 5-15 mmol/L [facility] ([facility]) [facility] [place] 01-15 14:57 -0400 Urea nitrogen [Mass/Vol] 14 mg/dL 8-26 mg/dL [facility] ([facility]) [facility] [place] 01-15 14:57 -0400 Creatinine [Mass/volume] in Serum or Plasma 1.08 mg/dL 0.55-1.30 mg/dL [facility] ([facility]) [facility] [place] 01-15 14:57 -0400 Glucose [Mass/volume] in Serum or Plasma 102 mg/dL 70-115 mg/dL [facility] ([facility]) [facility] [place] 01-15 14:57 -0400 Calcium [Mass/Vol] 9.4 mg/dL 8.5-10.0 mg/dL [facility] ([facility]) [facility] [place] 01-15 14:57 -0400 Protein [Mass/volume] in Serum or Plasma 7.9 g/dL 6.0-8.3 g/dL [facility] ([facility]) [facility] [place] 01-15 14:57 -0400 Albumin [Mass/volume] in Serum or Plasma 3.6 g/dL 3.4-5.0 g/dL [facility] ([facility]) [facility] [place] 01-15 14:57 -0400 Bilirubin.total [Mass/volume] in Serum or Plasma 0.40 mg/dL 0.2-1.0 mg/dL [facility] ([facility]) [facility] [place] 01-15 14:57 -0400 Alkaline phosphatase [Enzymatic activity/volume ] in Serum or Plasma 102 U/L 45-117 U/L [facility] ([facility]) [facility] [place] 01-15 14:57 -0400 ALT [Catalytic activity/Vol] 37 U/L 16-61 U/L [facility] ([facility]) [facility] [place] 01-15 14:57 -0400 AST [Catalytic activity/Vol] 18 U/L 15-37 U/L [facility] ([facility]) [facility] [place] 01-15 14:57 -0400 Glomerular filtration rate/1.73 sq M.predicted [Volume Rate/Area] in Serum, Plasma or Blood by Creatinine-base d formula (MDRD) 81 mL/min/{1.73_m2 } >=60 mL/min/1.73 m2 [facility] ([facility]) [facility] [place] 01-15 14:57 -0400 (L) GFR <60: CHRONIC KIDNEY DISEASE,if found over a 3 month period. ~GFR <15: KIDNEY FAILURE Globulin 4.3 g/dL [facility] ([facility]) [facility] [place] 01-15 14:57 -0400 Albumin/Globuli n [Mass Ratio] in Serum or Plasma 0.8 {ratio} Low 1.0-1.8 [facility] ([facility]) [facility] [place] 01-15 14:57 -0400 D-DIMER, QUANTITATIVEon 12-28 D-Dimer HS 491 <500 ng/mL FEU [facility] ([facility]) [facility] [place] 01-15 14:57 -0400 LIPASEon 01-16-2024 Lipase [Catalytic activity/Vol] 32 U/L 13-75 U/L [facility] ([facility]) [facility] [place] 01-15 14:57 -0400 TROPONIN, HIGH SENSITIVITYon 01-16-2024 High Sensitivity Troponin 16.6 <78.5 ng/L [facility] ([facility]) [facility] [place] 01-15 16:45 -0400 (L) Biotin concentrations >300 ng/mL may lead to falsely depressed patient results. High Sensitivity Troponin 14.1 <78.5 ng/L [facility] ([facility]) [facility] [place] 01-15 14:59 -0400 (L) Biotin concentrations >300 ng/mL may lead to falsely depressed patient results. High Sensitivity Troponin 18.1 <78.5 ng/L [facility] ([facility]) [facility] [place] 01-15 15:46 -0400 (L) Biotin concentrations >300 ng/mL may lead to falsely depressed patient results. High Sensitivity Troponin 18.2 <78.5 ng/L [facility] ([facility]) [facility] [place] 01-15 18:36 -0400 (L) Biotin concentrations >300 ng/mL may lead to falsely depressed patient results. URINALYSIS WITH MICROSCOPICo n 01-16-2024 Color, UA Yellow Light Yellow, Yellow [facility] ([facility]) [facility] [place] 01-15 18:29 -0400 Clarity, UA Clear Clear [facility] ([facility]) [facility] [place] 01-15 18:29 -0400 Glucose, UA Negative Negative [facility] ([facility]) [facility] [place] 01-15 18:29 -0400 Bilirubin, UA Negative Negative [facility] ([facility]) [facility] [place] 01-15 18:29 -0400 Ketones, UA Negative Negative [facility] ([facility]) [facility] [place] 01-15 18:29 -0400 Specific [place], Urine 1.017 1.005-1.030 [facility] ([facility]) [facility] [place] 01-15 18:29 -0400 Blood, UA Negative Negative [facility] ([facility]) [facility] [place] 01-15 18:29 -0400 pH, UA 5.0 5.0-9.0 [facility] ([facility]) [facility] [place] 01-15 18:29 -0400 Protein, UA Negative Negative [facility] ([facility]) [facility] [place] 01-15 18:29 -0400 Urobilinogen, UA Normal Normal mg/dL [facility] ([facility]) [facility] [place] 01-15 18:29 -0400 Nitrite, UA Negative Negative [facility] ([facility]) [facility] [place] 01-15 18:29 -0400 Leukocyte Esterase, UA Negative Negative [facility] ([facility]) [facility] [place] 01-15 18:29 -0400 WBC, UA 2 0-4 /HPF [facility] ([facility]) [facility] [place] 01-15 18:29 -0400 Erythrocytes [#/volume] in Urine by Test strip 1 0-1 /HPF [facility] ([facility]) [facility] [place] 01-15 18:29 -0400 Bacteria, UA Rare Abnormal None Seen /HPF [facility] ([facility]) [facility] [place] 01-15 18:29 -0400 Hyaline Casts, UA 19 High None Seen /LPF [facility] ([facility]) [facility] [place] 01-15 18:29 -0400 URINE DRUG SCREENon 01-16-20 24 Amphetamine/Met hamphetamine Screen, Ur Negative Negative [facility] ([facility]) [facility] [place] 01-15 18:36 -0400 Barbiturate Urine Screen Negative Negative [facility] ([facility]) [facility] [place] 01-15 18:36 -0400 Benzodiazepine Urine Screen Negative Negative [facility] ([facility]) [facility] [place] 01-15 18:36 -0400 Cannabinoid Urine Screen Negative Negative [facility] ([facility]) [facility] [place] 01-15 18:36 -0400 Cocaine Urine Screen Negative Negative [facility] ([facility]) [facility] [place] 01-15 18:36 -0400 Opiate Urine Screen Positive Abnormal Negative [facility] ([facility]) [facility] [place] 01-15 18:36 -0400 PCP Urine Screen Negative Negative [facility] ([facility]) [facility] [place] 01-15 18:36 -0400 Ethanol, Urine Screen Negative Negative [facility] ([facility]) [facility] [place] 01-15 18:36 -0400 XR CHEST 1 VWon 01-16-2024 XR CHEST 1 VW ~EXAM: Chest, 1 View~~INDICATIO N: Chest pain~~TECHNIQUE : Single View Chest~~COMPARIS ON: None~~FINDINGS: ~~Normal cardiac size status post CABG.~~The great vessels appear unremarkable.~~ Slight elevation of right hemidiaphragm.~ ~Lungs otherwise appear to be clear without consolidation or vascular ~congestion.~~T here is no pleural effusion or pneumothorax.~~ No acute osseous abnormalities.~ [facility] ([facility]) [facility] [place] XR CHEST 1 VW ~~No acute cardiopulmonary findings status post CABG.~~~~~Laura d in [employer] by KAMILAH SHERWOOD MD at 01/16/2024 04:22:25 PM~ [facility] ([facility]) [facility] [place] nullon 01-16-2024 Body weight Measured 115.667 kg [facility] ([facility]) [facility] [place] 01-15 14:16 -0400 Body weight Measured 111.8 kg [facility] ([facility]) [facility] [place] 01-15 18:36 -0400 Vital Signs Date Time Vital Sign Value Performing Clinician Facility 01-21-2024 08:19-0400 Body temperature 98.42 [degF] [facility] ([facility]) [facility] [place] 01-21-2024 08:19-0400 BP (Blood pressure) 134/62mm[Hg] [facility] ([facility]) [facility] [place] 01-21-2024 08:19-0400 Heart rate 63 /min [facility] ([facility]) [facility] [place] 01-21-2024 08:19-0400 Oxygen saturation in Arterial blood by Pulse oximetry 98 [facility] ([facility]) [facility] [place] 01-21-2024 08:19-0400 Respiratory rate 16 /min [facility] ([facility]) [facility] [place] 01-21-2024 08:19-0400 SaO2% (BldA) [Mass fraction] 98 % [facility] ([facility]) [facility] [place] 01-20-2024 19:41-0400 Body temperature 98.06 [degF] [facility] ([facility]) [facility] [place] 01-20-2024 19:41-0400 BP (Blood pressure) 122/53mm[Hg] [facility] ([facility]) [facility] [place] 01-20-2024 19:41-0400 Heart rate 72 /min [facility] ([facility]) [facility] [place] 01-20-2024 19:41-0400 Oxygen saturation in Arterial blood by Pulse oximetry 98 [facility] ([facility]) [facility] [place] 01-20-2024 19:41-0400 Respiratory rate 20 /min [facility] ([facility]) [facility] [place] 01-20-2024 19:41-0400 SaO2% (BldA) [Mass fraction] 98 % [facility] ([facility]) [facility] [place] 01-20-2024 14:00-0400 BP (Blood pressure) 94/56mm[Hg] [facility] ([facility]) [facility] [place] 01-20-2024 14:00-0400 Heart rate 58 /min [facility] ([facility]) [facility] [place] 01-20-2024 14:00-0400 Oxygen saturation in Arterial blood by Pulse oximetry 97 [facility] ([facility]) [facility] [place] 01-20-2024 14:00-0400 SaO2% (BldA) [Mass fraction] 97 % [facility] ([facility]) [facility] [place] 01-20-2024 13:55-0400 BP (Blood pressure) 109/76mm[Hg] [facility] ([facility]) [facility] [place] 01-20-2024 13:55-0400 Heart rate 57 /min [facility] ([facility]) [facility] [place] 01-20-2024 13:55-0400 Oxygen saturation in Arterial blood by Pulse oximetry 98 [facility] ([facility]) [facility] [place] 01-20-2024 13:55-0400 Respiratory rate 16 /min [facility] ([facility]) [facility] [place] 01-20-2024 13:55-0400 SaO2% (BldA) [Mass fraction] 98 % [facility] ([facility]) [facility] [place] 01-20-2024 13:30-0400 BP (Blood pressure) 126/87mm[Hg] [facility] ([facility]) [facility] [place] 01-20-2024 13:30-0400 Heart rate 64 /min [facility] ([facility]) [facility] [place] 01-20-2024 12:45-0400 BP (Blood pressure) 114/64mm[Hg] [facility] ([facility]) [facility] [place] 01-20-2024 12:45-0400 Oxygen saturation in Arterial blood by Pulse oximetry 98 [facility] ([facility]) [facility] [place] 01-20-2024 12:45-0400 SaO2% (BldA) [Mass fraction] 98 % [facility] ([facility]) [facility] [place] 01-20-2024 12:31-0400 BP (Blood pressure) 107/67mm[Hg] [facility] ([facility]) [facility] [place] 01-20-2024 12:31-0400 Heart rate 57 /min [facility] ([facility]) [facility] [place] 01-20-2024 12:21-0400 BP (Blood pressure) 108/60mm[Hg] [facility] ([facility]) [facility] [place] 01-20-2024 12:21-0400 Heart rate 56 /min [facility] ([facility]) [facility] [place] 01-20-2024 12:21-0400 Oxygen saturation in Arterial blood by Pulse oximetry 100 [facility] ([facility]) [facility] [place] 01-20-2024 12:21-0400 Respiratory rate 16 /min [facility] ([facility]) [facility] [place] 01-20-2024 12:21-0400 SaO2% (BldA) [Mass fraction] 100 % [facility] ([facility]) [facility] [place] 01-20-2024 12:20-0400 BP (Blood pressure) 112/61mm[Hg] [facility] ([facility]) [facility] [place] 01-20-2024 12:20-0400 Heart rate 60 /min [facility] ([facility]) [facility] [place] 01-20-2024 12:20-0400 Oxygen saturation in Arterial blood by Pulse oximetry 95 [facility] ([facility]) [facility] [place] 01-20-2024 12:20-0400 Respiratory rate 17 /min [facility] ([facility]) [facility] [place] 01-20-2024 12:20-0400 SaO2% (BldA) [Mass fraction] 95 % [facility] ([facility]) [facility] [place] 01-20-2024 09:34-0400 Body temperature 98.96 [degF] [facility] ([facility]) [facility] [place] 01-20-2024 09:34-0400 Body temperature [degF] [facility] ([facility]) [facility] [place] 01-20-2024 09:34-0400 Body temperature [facility] ([facility]) [facility] [place] 01-20-2024 09:34-0400 Diastolic blood pressure 60 mm[Hg] [facility] ([facility]) [facility] [place] 01-20-2024 09:34-0400 Diastolic blood pressure [facility] ([facility]) [facility] [place] 01-20-2024 09:34-0400 Heart rate 81 /min [facility] ([facility]) [facility] [place] 01-20-2024 09:34-0400 Heart rate [facility] ([facility]) [facility] [place] 01-20-2024 09:34-0400 Oxygen saturation in Arterial blood by Pulse oximetry 99 [facility] ([facility]) [facility] [place] 01-20-2024 09:34-0400 Oxygen saturation in Arterial blood by Pulse oximetry [facility] ([facility]) [facility] [place] 01-20-2024 09:34-0400 Respiratory rate [facility] ([facility]) [facility] [place] 01-20-2024 09:34-0400 SaO2% (BldA) [Mass fraction] 99 % [facility] ([facility]) [facility] [place] 01-20-2024 09:34-0400 SaO2% (BldA) [Mass fraction] % [facility] ([facility]) [facility] [place] 01-20-2024 09:34-0400 Systolic blood pressure 115 mm[Hg] [facility] ([facility]) [facility] [place] 01-20-2024 09:34-0400 Systolic blood pressure [facility] ([facility]) [facility] [place] 01-20-2024 09:12-0400 Body temperature 97.88 [degF] [facility] ([facility]) [facility] [place] 01-20-2024 09:12-0400 BP (Blood pressure) 124/76mm[Hg] [facility] ([facility]) [facility] [place] 01-20-2024 09:12-0400 Heart rate 60 /min [facility] ([facility]) [facility] [place] 01-20-2024 09:12-0400 Oxygen saturation in Arterial blood by Pulse oximetry 100 [facility] ([facility]) [facility] [place] 01-20-2024 09:12-0400 Respiratory rate 17 /min [facility] ([facility]) [facility] [place] 01-20-2024 09:12-0400 SaO2% (BldA) [Mass fraction] 100 % [facility] ([facility]) [facility] [place] 01-20-2024 06:21-0400 Heart rate 66 /min [facility] ([facility]) [facility] [place] 01-20-2024 06:17-0400 Body temperature 97.52 [degF] [facility] ([facility]) [facility] [place] 01-20-2024 06:17-0400 BP (Blood pressure) 144/72mm[Hg] [facility] ([facility]) [facility] [place] 01-20-2024 06:17-0400 Heart rate 65 /min [facility] ([facility]) [facility] [place] 01-20-2024 06:17-0400 Oxygen saturation in Arterial blood by Pulse oximetry 99 [facility] ([facility]) [facility] [place] 01-20-2024 06:17-0400 Respiratory rate 18 /min [facility] ([facility]) [facility] [place] 01-20-2024 06:17-0400 SaO2% (BldA) [Mass fraction] 99 % [facility] ([facility]) [facility] [place] 01-19-2024 19:39-0400 Body temperature 97.88 [degF] [facility] ([facility]) [facility] [place] 01-19-2024 19:39-0400 BP (Blood pressure) 129/66mm[Hg] [facility] ([facility]) [facility] [place] 01-19-2024 19:39-0400 Heart rate 66 /min [facility] ([facility]) [facility] [place] 01-19-2024 19:39-0400 Oxygen saturation in Arterial blood by Pulse oximetry 96 [facility] ([facility]) [facility] [place] 01-19-2024 19:39-0400 Respiratory rate 18 /min [facility] ([facility]) [facility] [place] 01-19-2024 19:39-0400 SaO2% (BldA) [Mass fraction] 96 % [facility] ([facility]) [facility] [place] 01-19-2024 12:22-0400 BP (Blood pressure) 111/85mm[Hg] [facility] ([facility]) [facility] [place] 01-19-2024 12:22-0400 Heart rate 62 /min [facility] ([facility]) [facility] [place] 01-19-2024 12:22-0400 Oxygen saturation in Arterial blood by Pulse oximetry 100 [facility] ([facility]) [facility] [place] 01-19-2024 12:22-0400 Respiratory rate 16 /min [facility] ([facility]) [facility] [place] 01-19-2024 12:22-0400 SaO2% (BldA) [Mass fraction] 100 % [facility] ([facility]) [facility] [place] 01-19-2024 08:25-0400 Body temperature 97.52 [degF] [facility] ([facility]) [facility] [place] 01-19-2024 08:25-0400 BP (Blood pressure) 133/81mm[Hg] [facility] ([facility]) [facility] [place] 01-19-2024 08:25-0400 Heart rate 60 /min [facility] ([facility]) [facility] [place] 01-19-2024 08:25-0400 Oxygen saturation in Arterial blood by Pulse oximetry 100 [facility] ([facility]) [facility] [place] 01-19-2024 08:25-0400 Respiratory rate 17 /min [facility] ([facility]) [facility] [place] 01-19-2024 08:25-0400 SaO2% (BldA) [Mass fraction] 100 % [facility] ([facility]) [facility] [place] 01-19-2024 06:19-0400 Body temperature 97.52 [degF] [facility] ([facility]) [facility] [place] 01-19-2024 06:19-0400 BP (Blood pressure) 133/79mm[Hg] [facility] ([facility]) [facility] [place] 01-19-2024 06:19-0400 Heart rate 52 /min [facility] ([facility]) [facility] [place] 01-19-2024 06:19-0400 Oxygen saturation in Arterial blood by Pulse oximetry 99 [facility] ([facility]) [facility] [place] 01-19-2024 06:19-0400 Respiratory rate 20 /min [facility] ([facility]) [facility] [place] 01-19-2024 06:19-0400 SaO2% (BldA) [Mass fraction] 99 % [facility] ([facility]) [facility] [place] 01-18-2024 17:06-0400 BP (Blood pressure) 116/69mm[Hg] [facility] ([facility]) [facility] [place] 01-18-2024 17:06-0400 Heart rate 68 /min [facility] ([facility]) [facility] [place] 01-18-2024 13:12-0400 Body temperature 97.52 [degF] [facility] ([facility]) [facility] [place] 01-18-2024 13:12-0400 BP (Blood pressure) 141/90mm[Hg] [facility] ([facility]) [facility] [place] 01-18-2024 13:12-0400 Heart rate 97 /min [facility] ([facility]) [facility] [place] 01-18-2024 13:12-0400 Oxygen saturation in Arterial blood by Pulse oximetry 98 [facility] ([facility]) [facility] [place] 01-18-2024 13:12-0400 Respiratory rate 18 /min [facility] ([facility]) [facility] [place] 01-18-2024 13:12-0400 SaO2% (BldA) [Mass fraction] 98 % [facility] ([facility]) [facility] [place] 01-18-2024 08:45-0400 Body temperature 97.52 [degF] [facility] ([facility]) [facility] [place] 01-18-2024 08:45-0400 BP (Blood pressure) 156/76mm[Hg] [facility] ([facility]) [facility] [place] 01-18-2024 08:45-0400 Heart rate 52 /min [facility] ([facility]) [facility] [place] 01-18-2024 08:45-0400 Oxygen saturation in Arterial blood by Pulse oximetry 97 [facility] ([facility]) [facility] [place] 01-18-2024 08:45-0400 Respiratory rate 18 /min [facility] ([facility]) [facility] [place] 01-18-2024 08:45-0400 SaO2% (BldA) [Mass fraction] 97 % [facility] ([facility]) [facility] [place] 01-18-2024 02:42-0400 Body mass index (BMI) [Ratio] 38.6 kg/m2 [facility] ([facility]) [facility] [place] 01-18-2024 02:42-0400 Body weight 115.1 kg [facility] ([facility]) [facility] [place] 01-17-2024 23:14-0400 Body temperature 97.52 [degF] [facility] ([facility]) [facility] [place] 01-17-2024 23:14-0400 BP (Blood pressure) 117/65mm[Hg] [facility] ([facility]) [facility] [place] 01-17-2024 23:14-0400 Heart rate 50 /min [facility] ([facility]) [facility] [place] 01-17-2024 23:14-0400 Oxygen saturation in Arterial blood by Pulse oximetry 96 [facility] ([facility]) [facility] [place] 01-17-2024 23:14-0400 Respiratory rate 18 /min [facility] ([facility]) [facility] [place] 01-17-2024 23:14-0400 SaO2% (BldA) [Mass fraction] 96 % [facility] ([facility]) [facility] [place] 01-17-2024 13:52-0400 Body temperature 97.52 [degF] [facility] ([facility]) [facility] [place] 01-17-2024 13:52-0400 BP (Blood pressure) 118/74mm[Hg] [facility] ([facility]) [facility] [place] 01-17-2024 13:52-0400 Heart rate 69 /min [facility] ([facility]) [facility] [place] 01-17-2024 13:52-0400 Oxygen saturation in Arterial blood by Pulse oximetry 97 [facility] ([facility]) [facility] [place] 01-17-2024 13:52-0400 Respiratory rate 18 /min [facility] ([facility]) [facility] [place] 01-17-2024 13:52-0400 SaO2% (BldA) [Mass fraction] 97 % [facility] ([facility]) [facility] [place] 01-17-2024 09:32-0400 BP (Blood pressure) 112/69mm[Hg] [facility] ([facility]) [facility] [place] 01-17-2024 09:32-0400 Heart rate 57 /min [facility] ([facility]) [facility] [place] 01-17-2024 09:32-0400 Respiratory rate 18 /min [facility] ([facility]) [facility] [place] 01-17-2024 08:53-0400 Heart rate 73 /min [facility] ([facility]) [facility] [place] 01-17-2024 08:52-0400 BP (Blood pressure) 100/59mm[Hg] [facility] ([facility]) [facility] [place] 01-17-2024 08:52-0400 Heart rate 75 /min [facility] ([facility]) [facility] [place] 01-17-2024 08:44-0400 BP (Blood pressure) 126/84mm[Hg] [facility] ([facility]) [facility] [place] 01-17-2024 08:44-0400 Heart rate 64 /min [facility] ([facility]) [facility] [place] 01-17-2024 08:44-0400 Oxygen saturation in Arterial blood by Pulse oximetry 97 [facility] ([facility]) [facility] [place] 01-17-2024 08:44-0400 Respiratory rate 16 /min [facility] ([facility]) [facility] [place] 01-17-2024 08:44-0400 SaO2% (BldA) [Mass fraction] 97 % [facility] ([facility]) [facility] [place] 01-17-2024 08:24-0400 Body temperature 97.52 [degF] [facility] ([facility]) [facility] [place] 01-17-2024 08:24-0400 BP (Blood pressure) 132/85mm[Hg] [facility] ([facility]) [facility] [place] 01-17-2024 08:24-0400 Heart rate 65 /min [facility] ([facility]) [facility] [place] 01-17-2024 08:24-0400 Oxygen saturation in Arterial blood by Pulse oximetry 95 [facility] ([facility]) [facility] [place] 01-17-2024 08:24-0400 Respiratory rate 18 /min [facility] ([facility]) [facility] [place] 01-17-2024 08:24-0400 SaO2% (BldA) [Mass fraction] 95 % [facility] ([facility]) [facility] [place] 01-17-2024 05:36-0400 Body mass index (BMI) [Ratio] 38 kg/m2 [facility] ([facility]) [facility] [place] 01-17-2024 05:36-0400 Body weight 113.4 kg [facility] ([facility]) [facility] [place] 01-17-2024 05:33-0400 Body temperature 97.7 [degF] [facility] ([facility]) [facility] [place] 01-17-2024 05:33-0400 BP (Blood pressure) 144/97mm[Hg] [facility] ([facility]) [facility] [place] 01-17-2024 05:33-0400 Heart rate 61 /min [facility] ([facility]) [facility] [place] 01-17-2024 05:33-0400 Oxygen saturation in Arterial blood by Pulse oximetry 95 [facility] ([facility]) [facility] [place] 01-17-2024 05:33-0400 Respiratory rate 20 /min [facility] ([facility]) [facility] [place] 01-17-2024 05:33-0400 SaO2% (BldA) [Mass fraction] 95 % [facility] ([facility]) [facility] [place] 01-16-2024 19:53-0400 Body temperature 97.7 [degF] [facility] ([facility]) [facility] [place] 01-16-2024 19:53-0400 BP (Blood pressure) 135/102mm[Hg] [facility] ([facility]) [facility] [place] 01-16-2024 19:53-0400 Heart rate 56 /min [facility] ([facility]) [facility] [place] 01-16-2024 19:53-0400 Oxygen saturation in Arterial blood by Pulse oximetry 97 [facility] ([facility]) [facility] [place] 01-16-2024 19:53-0400 Respiratory rate 16 /min [facility] ([facility]) [facility] [place] 01-16-2024 19:53-0400 SaO2% (BldA) [Mass fraction] 97 % [facility] ([facility]) [facility] [place] 01-16-2024 18:36-0400 Body height 172.82 cm [facility] ([facility]) [facility] [place] 01-16-2024 18:36-0400 Body height 172.8216 cm [facility] ([facility]) [facility] [place] 01-16-2024 18:36-0400 Body mass index (BMI) [Ratio] 37.5 kg/m2 [facility] ([facility]) [facility] [place] 01-16-2024 18:36-0400 Body temperature 97.34 [degF] [facility] ([facility]) [facility] [place] 01-16-2024 18:36-0400 Body weight 111.8 kg [facility] ([facility]) [facility] [place] 01-16-2024 18:36-0400 BP (Blood pressure) 143/116mm[Hg] [facility] ([facility]) [facility] [place] 01-16-2024 18:36-0400 Heart rate 57 /min [facility] ([facility]) [facility] [place] 01-16-2024 18:36-0400 Oxygen saturation in Arterial blood by Pulse oximetry 97 [facility] ([facility]) [facility] [place] 01-16-2024 18:36-0400 Respiratory rate 18 /min [facility] ([facility]) [facility] [place] 01-16-2024 18:36-0400 SaO2% (BldA) [Mass fraction] 97 % [facility] ([facility]) [facility] [place] 01-16-2024 16:55-0400 Body height 177.7 cm [facility] ([facility]) [facility] [place] 01-16-2024 16:55-0400 Body height 177.6984 cm [facility] ([facility]) [facility] [place] 01-16-2024 15:45-0400 BP (Blood pressure) 138/90mm[Hg] [facility] ([facility]) [facility] [place] 01-16-2024 14:16-0400 Body temperature 98.78 [degF] [facility] ([facility]) [facility] [place] 01-16-2024 14:16-0400 Body weight 115.67 kg [facility] ([facility]) [facility] [place] Clinical Notes 01-16-2024 to 01-21-2024 Note Date & Type Note Facility 01-21-2024 Discharge Summary DISCHARGE SUMMARY Admitting Provider: Betty Solitario MD Discharge Provider: No att. providers found CC. Primary Care Physician at Discharge: No primary care provider on file. 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 clopidogreL 75 mg tablet Commonly known as: PLAVIX Start taking on: January 22, 2024 Take 1 tablet (75 mg total) by mouth 1 (one) time each day. HYDROcodone-acetaminophen 5-325 mg per tablet Commonly known as: NORCO Take 1 tablet by mouth every 8 (eight) hours if needed for moderate pain (4-6) for up to 12 doses. losartan 50 mg tablet Commonly known as: COZAAR Start taking on: January 22, 2024 Take 1 tablet (50 mg total) by mouth 1 (one) time each day. ranolazine 500 mg 12 hr tablet Commonly known as: RANEXA Take 1 tablet (500 mg total) by mouth 2 (two) times per day. CHANGE how you take these medications Instructions Last Dose Given Next Dose Due carvediloL 12.5 mg tablet Commonly known as: COREG What changed: how much to take isosorbide mononitrate 30 mg 24 hr tablet Commonly known as: IMDUR What changed: how much to take when to take this CONTINUE taking these medications Instructions Last Dose Given Next Dose Due albuterol HFA 90 mcg/actuation inhaler Commonly known as: Ventolin HFA amLODIPine 10 mg tablet Commonly known as: NORVASC aspirin 81 mg chewable tablet ezetimibe 10 mg tablet Commonly known as: ZETIA nicotine 21 mg/24 hr Commonly known as: NICODERM CQ pantoprazole 40 mg EC tablet Commonly known as: PROTONIX QUEtiapine 50 mg tablet Commonly known as: SEROquel spironolactone 25 mg tablet Commonly known as: ALDACTONE Where to Get Your Medications These medications were sent to [facility] [address] [place] [address] [address] [address] [facility] [address] atorvastatin 80 mg tablet clopidogreL 75 mg tablet HYDROcodone-acetaminophen 5-325 mg per tablet losartan 50 mg tablet ranolazine 500 mg 12 hr tablet Hospital Course Mr. Garnett is 53-year-old male [...] hemodynamically stable. Hence he is discharged in [facility] to home on cardiac medications were optimized. Procedures Procedure(s): Cardiac catheterization Consults IP CONSULT TO CARDIOLOGY Labs Results for orders placed or performed during the hospital encounter of 01/16/24 (from the past 24 hours) CBC with Auto Differential Collection Time: 01/21/24 7:12 AM Result Value Ref Range WBC 8.23 4.30 - 10.80 K/uL RBC 5.08 4.70 - 6.10 M/uL Hemoglobin 14.4 14.0 - 18.0 g/dL Hematocrit 43.9 42.0 - 52.0 % MCV 86 81 - 99 fL MCH 28.3 26.0 - 34.0 pg MCHC 32.8 31.0 - 37.0 g/dL MPV 9.8 9.4 - 12.4 fL Platelets 243 150 - 400 K/uL RDW 12.6 11.5 - 14.5 % RDW-SD 39.9 35.1 - 43.9 fL Nucleated RBC, Absolute 0.00 K/uL Nucleated RBC 0.0 0.0 /100 WBC Neutrophils 59.9 13.0 - 69.0 % Lymphocytes 23.7 (L) 24.0 - 44.0 % Monocytes 12.3 (H) 1.0 - 10.0 % Eosinophils 3.2 0.0 - 6.0 % Basophils 0.5 0.0 - 2.0 % Immature Granulocytes 0.4 0.0 - 0.5 % Neutrophils, Absolute 4.94 1.55 - 7.13 K/uL Lymphocytes, Absolute 1.95 1.00 - 4.80 K/uL Monocytes, Absolute 1.01 0.40 - 1.08 K/uL Eosinophils, Absolute 0.26 0.00 - 0.65 K/uL Basophils, Absolute 0.04 0.00 - 0.11 K/uL Immature Granulocytes, Absolute 0.03 0.00 - 0.10 K/uL Basic Metabolic Panel Collection Time: 01/21/24 7:12 AM Result Value Ref Range Sodium 138 136 - 145 mmol/L Potassium 5.1 3.5 - 5.1 mmol/L Chloride 108 (H) 98 - 107 mmol/L CO2 27 21 - 32 mmol/L Anion Gap 3 (L) 5 - 15 mmol/L BUN 21 8 - 26 mg/dL Creatinine 1.06 0.55 - 1.30 mg/dL Glucose 85 70 - 115 mg/dL Calcium 9.0 8.5 - 10.0 mg/dL Estimated GFR 83 >=60 mL/min/1.73m2 ROS Limited 6 point ROS was negative Physical Exam at Discharge Temp: [36.7 \XC2B0\C (98.1 \XC2B0\F)-36.9 \XC2B0\C (98.4 \XC2B0\F)] 36.9 \XC2B0\C (98.4 \XC2B0\F) Heart Rate: [57-72] 63 Resp: [16-20] 16 BP: (94-134)/(51-87) 134/62 SpO2: [97 %-98 %] 98 % Oxygen Therapy: None (Room air) Weight: 115 kg (253 lb 12 oz) BP 134/62 (BP Location: Left arm, Patient Position: Sitting) Pulse 63 Temp 36.9 \XC2B0\C (98.4 \XC2B0\F) (Oral) Resp 16 Ht 1.727 m (5' 8) Wt 115 kg (253 lb 12 oz) SpO2 98% BMI 38.58 kg/m\XC2B2\ General Appearance: Alert, cooperative, no distress, appears stated age Head: Normocephalic, without obvious abnormality, atraumatic Eyes: PERRL, conjunctiva/corneas clear, EOM's intact, fundi benign, both eyes Ears: Normal TM's and external ear canals, both ears Nose: Nares normal, septum midline, mucosa normal, no drainage or sinus tenderness Throat: Lips, mucosa, and tongue normal; teeth and gums normal Neck: Supple, symmetrical, trachea midline, no adenopathy; thyroid: No enlargement/tenderness/nodules; no carotid bruit or JVD Back: Symmetric, no curvature, ROM normal, no CVA tenderness Lungs: Clear to auscultation bilaterally, respirations unlabored Chest wall: No tenderness or deformity Heart: Regular rate and rhythm, S1 and S2 normal, no murmur, rub or gallop Abdomen: Soft, non-tender, bowel sounds active all four quadrants, no masses, no organomegaly Genitalia: Normal male without lesion, discharge or tenderness Rectal: Normal tone, normal prostate, no masses or tenderness; guaiac negative stool Extremities: Extremities normal, atraumatic, no cyanosis or edema Pulses: 2+ and symmetric all extremities Skin: Skin color, texture, turgor normal, no rashes or lesions Lymph nodes: Cervical, supraclavicular, and axillary nodes normal Neurologic: CNII-XII intact. Normal strength, sensation and reflexes throughout Discharge Diet: Regular diet Discharge Activity: As tolerated Outpatient Follow-Up Appointments and Tests Pending Upon Discharge: [facility] Card[facility] [address] [facility] [id number] No follow-ups on file. Future Appointments Date Time Provider Department Center 01/28/2024 1:00 PM Jemima Ureña APRN [facility] Card None Disposition: Home with Family Support Total time spent discharging Catherine Garnett was 35 minutes. Manish Marie MD [facility] ([facility]) [facility] [place] 01-21-2024 Case Management Note 01/21/24 Discharge 01/21/24 1111 Discharge Planning Final discharge disposition Home or Self Care Patient and family agree with discharge plan? Yes Discharge Planning Reassessment Changes in patient's condition? No Adjustment to discharge plan? No changes to existing discharge plan Patient Specific Goals Patient Goal for Admission feel better Patient Goal for Discharge home Reason for Hospitalization Unstable angina Patient to discharge home today. 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 Patient reports his van has microwave, bathroom, etc and he has funds to pay for food. Patient would like his medications sent to [facility]. Patient requesting his records from hospital stay be sent to his [place] Dr Mayen. Release of information form filled out with patient then faxed to medical records ([phone]) with coversheet noting would like all hospital records sent to his dr listed on release of information sheet. Successful transmission receipt returned. CM also explains my chart to patient and can share with others once that is set up. Patient verbalizes understanding. Patient denies additional discharge needs other than feels he will need pain pills at discharge. [facility] ([facility]) [facility] [place] 01-21-2024 Nursing Note Discussed all medications, follow up appointments and discharge instructions per doctor with patient and family. IV and tele monitor removed. IV tip intact. Informed patient and family they may call their primary doctor or specialty doctor, or the hospital with any follow up questions or concerns. Patient and family verbalized understanding. [facility] ([facility] 01-21-2024 Nursing Note 01/21/24 1006 Patient Progress Rounds Patient expects to be discharged to: Home Stable and completed treatment? Y Today we still await: Clinical stability [facility] ([facility] 01-21-2024 Case Management Note 01/21/24 1003 Patient Progress Rounds Patient expects to be discharged to: Home Stable and completed treatment? Y Ghazala Zarco RN 01/21/2024 [facility] ([facility]) [facility] [place] 01-21-2024 Progress Notes The [address] [address] Cardiology Hospital Progress Note Patient:Catherine Garnett :1970 Admitted:01/16/2024 Today's date: 01/21/24 Chief Complaint Patient presents with Chest Pain Subjective Data: The patient has been walking in the halls, denies significant shortness of breath. He c/o chest pain--although improved from admit. Social history: Tobacco use: reports that he has been smoking cigarettes. He has never used smokeless tobacco. Past Medical History: Diagnosis Date Asthma Congestive heart failure (HCC) Coronary arteriosclerosis Essential hypertension Hyperlipidemia Past Surgical History: Procedure Laterality Date CARDIAC RHYTHM INTERVENTION WI CATH PLMT L HRT & ARTS W/NJX & ANGIO IMG S&I Left 01/19/2024 Procedure: Left heart cath; Surgeon: Chalo Garcia MD; Location: [facility] CARDIAC CATH/EP LAB; Service: Cardiovascular History reviewed. No pertinent family history. LAB RESULTS: Lab Results Component Value Date NA 138 01/21/2024 K 5.1 01/21/2024 CL 108 (H) 01/21/2024 CO2 27 01/21/2024 BUN 21 01/21/2024 CREATININE 1.06 01/21/2024 CALCIUM 9.0 01/21/2024 GLUCOSE 85 01/21/2024 Lab Results Component Value Date WBC 8.23 01/21/2024 HGB 14.4 01/21/2024 HCT 43.9 01/21/2024 PLT 243 01/21/2024 No results found for: TSH Lab Results Component Value Date PT 11.6 01/18/2024 INR 1.0 01/18/2024 No results found for: TROPONINI Lab Results Component Value Date PROBNP 288 (H) 01/19/2024 Imaging Results: Cardiac catheterization Result Date: 01/20/2024 History/Risk Factors Hypertension: Yes Myocardial Infarction (ND): Yes Tobacco Use: Current - Every Day Prior Interventions CABG: Yes Report Signatures Interventional Finalized by hCalo Garcia MD on 01/20/2024 03:19 PM Diagnostic Finalized by Chalo Garcia MD on 01/20/2024 03:19 PM Patient Info Name: Catherine Garnett Age: 53 yrs Admit Date: 01/16/2024 Exam Date: 01/20/2024 11:19 AM Patient Status: I Site: [facility] Ht: 68 in Wt: 254 lbs BSA: 2.40 m2 Any Known Allergies: NO KNOWN DRUG ALLERGIES Gender: Male : 1970 Exam Type: CARDIAC CATHETERIZATION Performing Physician(s): Chalo Garcia MD Procedure(s) Description: Sonosite Description: IVUS (LAD Prox) Description: Stent (LAD Prox) Description: Re inflate stent bal (LAD Prox) Exam Priority: R Indication(s) - coronary artery disease Conclusions 1. Successful IVUS guided PTCA/JOSESITO of proximal LAD with reduction in stenosis from 90% to 0%. Recommendations * Smoking cessation counseling is recommended for this patient. Cath Hemodynamic Data Pressures Phase:DefaultPhase AO : 87 mmHg/56 mmHg(71 mmHg) @ 11:36:50 AM 102 mmHg/66 mmHg(82 mmHg) @ 11:44:46 AM AO HR: 56 bpm @ 11:36:50 AM 58 bpm @ 11:44:46 AM Clinical Evaluation EBL: 10 ml Specimen Collected: No Procedural Details Patient identified and assessed by provider immediately prior to induction of moderate sedation. 100 mcg CARDENE (NICARDIPINE) given in lab by CHALO GARCIA via Intra-arterial. Ordered by CHALO GARCIA. Reason: For Radial Access Mixture. Time out to confirm correct patient, procedure and site was performed by bottle label inspector staff and MD. 100 mcg NITROGLYCERIN (IC) given. In the LAD Prox the Xience Skypoint 3.25mm x 18mm balloon was re-inflated to 18 atms for 15 seconds. In the LAD Prox a OptiCross 6 HD 6Fr was inserted and advanced. Images were obtained. 200 mcg NITROGLYCERIN (IC) given. Right radial and Right groin prepped with Chloraprep and draped in sterile fashion. In the LAD Prox the Xience Skypoint 3.25mm x 18mm balloon was re-inflated to 20 atms for 15 seconds. In the LAD Prox the Xience Skypoint 3.25mm x 18mm balloon was re-inflated to 22 atms for 15 seconds. 5 mL LIDOCAINE 1% given. In the Radial (right) a Glidesheath Slender 6F x 10cm was inserted and advanced. No nausea/vomiting. 5000 units HEPARIN given. 0.75 mg/kg Angiomax Bolus (Bivalirudin) given in lab by Eliseo Cobian via Peripheral IV. Amount given = 86.25 mg. Ordered by CHALO GARCIA. Reason: For Anticoagulation. BM in for BR. Post-procedure instructions given; patient acknowledges understanding of instructions. Ultrasound guidance used for access. In the LAD Prox a Xience Skypoint 3.25mm x 18mm was deployed at 12 atms for 15 seconds. Pre-procedure questions/concerns addressed. Patient indicates an understanding, no further concerns at this time. 200 mcg NITROGLYCERIN given. No complications noted. Fair results from medication. 1.75 mg/kg/hr Angiomax Infusion (Bivalirudin) given in lab by Eliseo Cobian via Peripheral IV. Pump/Drip Flow = 40.25 ml/hr using NaCl 0.9% 50ml with a concentration of 250 mg in 50 ml. Ordered by CHALO GARCIA. Reason: For Anticoagulation. Plan of care followed. Pt transported by bed. 2 l/min OXYGEN given. Sheath was removed and hemostasis achieved using TR Band Large 29cm. 8mL of air in band. In the LAD Prox the Xience Skypoint 3.25mm x 18mm balloon was re-inflated to 15 atms for 15 seconds. Report given to LEIF Mendoza Tele. Access Site Inserted: 11:31 AM Sheath: 6F x 10cm Glidesheath Slender Site: Radial (right) Removed: 12:01 PM Hemostasis Method: 29cm TR Band Large Complication Findings No complications occurred during the procedure. X-ray Summary Total Time (min): 6.80 Interventional Time (min): --- Diagnostic Time (min): --- Total Dose (mGy): --- Air Kerma (mGy): --- DAP (cGy*cm2): --- Contrast Contrast: Isovue-370 Amount (mL): 90 ml Procedure Note The patient was prepped and draped in a sterile fashion. 1% Xylocaine was instilled as a local anesthetic. Under my direct supervision, moderate sedation was administered in the form of divided doses of intravenous Versed and intravenous fentanyl. The patient was monitored with the assistance of an independent trained observer during the case. Under ultrasound guidance, the right radial artery was cannulated with a micropuncture needle and via the modified Seldinger technique a 6 [place] Glidesheath was inserted into the right radial artery. A standard cocktail of heparin, nitroglycerin, and nicardipine was administered intra-arterially. Angiomax was administered according to protocol. The left main trunk was cannulated with a 6 [place] EBU 3.75 guide catheter. The first diagonal branch was cannulated with a Choice PT extra-support wire. Intravascular ultrasound of the proximal LAD was performed. The proximal LAD was then stented with a 3.25 mm x 18 mm Xience drug-eluting stent. Serial follow-up high-pressure dilatations were performed to a luminal diameter of approximately 3.5 mm. Follow-up IVUS was performed. Follow-up angiography was performed. This demonstrated superimposed spasm upon an area of moderate stenosis in the midportion of the first diagonal branch undoubtedly related to the IVUS catheter. This resolved with the administration of intracoronary nitroglycerin and final angiography demonstrated a very satisfactory result. The catheter was withdrawn and the sheath was removed. Hemostasis was achieved with a TR band. The patient tolerated the procedure well without complications and left the cardiac catheterization laboratory in stable condition. EKG/Tele Results: Sinus rhythm 60s Cardiology testin01/20/24 PCI: successful IVUS guided PTCA/JOSESITO of proximal LAD with reduction in stenosis from 90% to 0%. 01/19/24 LHC: 90% proximal LAD, subtotal mid LAD. 70-80% distal codominant Lcx, 100% small codominant RCA and mild to moderate disease elsewhere. Patent EPSTEIN to LAD, patent SVG to distal OM, patent SVG to PDA. LVEF 45%. 01/18/24 Stress test: large sized, mild to severe perfusion defect in the anterior, anteroseptal, septal, inferior, lateral and apex bronson is partially reversible. Normal TID. 01/18/24 Limited echo: EF 61%, normal wall motion. Current Medications: amLODIPine, 10 mg, oral, Daily aspirin, 81 mg, oral, Daily atorvastatin, 80 mg, oral, Daily carvediloL, 25 mg, oral, BID AC clopidogreL, 75 mg, oral, Daily ezetimibe, 10 mg, oral, HS isosorbide mononitrate, 120 mg, oral, Daily losartan, 50 mg, oral, Daily nicotine, 1 patch, transdermal, Daily pantoprazole, 40 mg, oral, q AM AC polyethylene glycol, 17 g, oral, Daily QUEtiapine, 50 mg, oral, HS ranolazine, 500 mg, oral, BID sennosides-docusate sodium, 1 tablet, oral, HS sodium chloride 0.9 % (flush), 10 mL, intravenous, q12h CAROLANN spironolactone, 25 mg, oral, Daily Vital Signs: BP 134/62 (BP Location: Left arm, Patient Position: Sitting) Pulse 63 Temp 36.9 \XC2B0\C (98.4 \XC2B0\F) (Oral) Resp 16 Ht 1.727 m (5' 8) Wt 115 kg (253 lb 12 oz) SpO2 98% BMI 38.58 kg/m\XC2B2\ Physical Exam: GENERAL: Appears in no acute distress RESP: Lungs clear to auscultation CV: Heart sounds S1 S2 regular without murmur lower extremities without edema Right radial site stable, no hematoma Right groin site, minimal bruising, no hematoma PRIMARY DIAGNOSIS Unstable angina (HCC) Assessment: CAD/unstable angina- patient with known CAD s/p CABG x3 in [facility]. Presented with c/o chest pain; stress test was high risk with large area of ischemia. LHC on 01/18 showed patent grafts with proximal LAD lesion. --s/p PTCA/JOSESITO to proximal LAD 01/20/24 --continue ASA 81mg daily and Plavix 75mg daily --continue amlodipine 10mg daily --continue Lipitor 80mg daily --continue Zetia 10mg daily --continue Coreg 25mg BID --continue Imdur 120mg daily --continue Ranexa 500mg BID Hyperlipidemia- LDL 142 --continue Lipitor 80mg daily --continue Zetia 10mg daily Ischemic cardiomyopathy with recovered EF- echo this admission showed EF 61% --continue Coreg 25mg BID --continue spironolactone 25mg daily --continue losartan 50mg daily Hypertensive urgency- BP on admit 160s/90s. BP improved with addition of spironolactone and losartan. --continue losartan 50mg daily --continue spironolactone 25mg daily --continue Coreg 25mg BID --continue amlodipine 10mg daily Tobacco use - smoking cessation strongly encouraged Plan: Patient seen with Dr. Mejia. The patient has history of CAD with prior CABG x3 in [facility]. He presented with c/o chest pain and had abnormal stress test. He was found to have proximal LAD lesion on heart cath s/p JOSESITO x1 on 01/20/24. Continue DAPT. The patient has had multiple encounters for chest pain at several different hospitals in multiple states. Per review of EHR there is mention of noncompliance and substance abuse. Medication compliance was strongly encouraged. Continue with current medication regimen. The patient was instructed to wait to drive any long distances for at least 1 week. He will see us in follow-up next week, if he is stable at that time then we will clear him for driving. 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 Jemima Ureña APRN 01/21/2024, 9:43 AM PHYSICIAN ADDENDUM: Today's Date: 01/21/24 I have seen, interviewed, and examined the patient. Case discussed with LEROY /SUSI. I reviewed relevant clinical information. EPIC chart data, reports, and clinical notes reviewed. Agree with data above as outlined by CRYSTAL SLICER / SUSI. Cardiac imaging studies reviewed. I modified consultation to reflect information from my evaluation to include ROS and physical examination findings as noted below. Assessment and plan devised, formulated, and documented in conjunction with me. In brief, the patient is a 53-year-old gentleman who presented to the hospital with chest pain. Vital Signs: BP 134/62 (BP Location: Left arm, Patient Position: Sitting) Pulse 63 Temp 36.9 \XC2B0\C (98.4 \XC2B0\F) (Oral) Resp 16 Ht 1.727 m (5' 8) Wt 115 kg (253 lb 12 oz) SpO2 98% BMI 38.58 kg/m\XC2B2\ ROS Review of Systems Physical Exam: Constitutional: Appropriate in character, no acute distress HEENT: Normocephalic and atraumatic Eyes: Pupils equally round, non-icteric Endocrinology: Thyroid is symmetric, not enlarged Lymphatic system: No cervical or supraclavicular adenopathy Neck: Supple, no masses, no JVD, no carotid bruits Cardiovascular: Heart: RRR, normal S1 and S2, no pathologic murmur 2/6 midsystolic murmur at the apex, PMI normal, no JVD Vascular: No carotid bruits; radial, DP, PT 2+ and symmetric Chest Wall: No tenderness or deformity. Extremities: No edema, no stasis dermatitis, no clubbing or cyanosis. Respiratory: Clear to auscultation bilaterally Gastrointestinal: soft, nontender, nondistended. Musculoskeletal: Moves all extremities, no gross joint deformities, normal spine curvature, no CVA tenderness Integumentary: No rashes or lesions Psychiatric: mood pleasant, affect normal, alert and oriented Neurological: Gait normal , No gross motor deficit Assessment / Plan CAD/unstable angina- patient with known CAD s/p CABG x3 in [facility]. Presented with c/o chest pain; stress test was high risk with large area of ischemia. LHC on 01/18 showed patent grafts with proximal LAD lesion. --s/p PTCA/JOSESITO to proximal LAD 01/20/24 --continue ASA 81mg daily and Plavix 75mg daily --continue amlodipine 10mg daily --continue Lipitor 80mg daily --continue Zetia 10mg daily --continue Coreg 25mg BID --continue Imdur 120mg daily --continue Ranexa 500mg BID Hyperlipidemia- LDL 142 --continue Lipitor 80mg daily --continue Zetia 10mg daily Ischemic cardiomyopathy with recovered EF- echo this admission showed EF 61% --continue Coreg 25mg BID --continue spironolactone 25mg daily --continue losartan 50mg daily Hypertensive urgency- BP on admit 160s/90s. BP improved with addition of spironolactone and losartan. --continue losartan 50mg daily --continue spironolactone 25mg daily --continue Coreg 25mg BID --continue amlodipine 10mg daily Tobacco use - smoking cessation strongly encouraged The patient has history of CAD with prior CABG x3 in [facility]. He presented with c/o chest pain and had abnormal stress test. He was found to have proximal LAD lesion on heart cath s/p JOSESITO x1 on 01/20/24. Continue DAPT. The patient has had multiple encounters for chest pain at several different hospitals in multiple states. Per review of EHR there is mention of noncompliance and substance abuse. Medication compliance was strongly encouraged. Continue with current medication regimen. The patient was instructed to wait to drive any long distances for at least 1 week. He will see us in follow-up next week, if he is stable at that time then we will clear him for driving. 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 I performed more than half of the total time spent on the visit and performed two of the three chauhan components in its entirety (history, exam or medical decision-making). Chirag Mejia MD Electronic Signature 01/21/2024 4:37 PM [facility] ([facility]) [facility] [place] 01-21-2024 Plan of Care Problem: Knowledge Deficit Goal: Patient/family/caregiver demonstrates understanding of disease process, treatment plan, medications, and discharge instructions Outcome: Progressing Problem: Anxiety Goal: Anxiety is at manageable level Outcome: Progressing Problem: Pain - Adult Goal: Verbalizes/displays adequate comfort level or baseline comfort level Outcome: Progressing Problem: Hemodynamic Status Goal: Patient's vitals signs are stable Outcome: Progressing Goal: Patient has no life threatening arrhythmias Outcome: Progressing Goal: ND Core Measures Outcome: Progressing Problem: Inadequate Coping Goal: Demonstrates ability to cope effectively Outcome: Progressing Goal: Verbalizes adaptive coping mechanisms Outcome: Progressing Goal: Verbalizes personal strengths Outcome: Progressing Problem: Activity Intolerance/Impaired Mobility Goal: Mobility/activity is maintained at optimum level for patient Outcome: Progressing Problem: Nutrition Goal: Nutritional status is improving Outcome: Progressing Problem: ND Discharge Planning Goal: Discharge to home or other facility with appropriate resources Outcome: Progressing Goal: ND Discharge Instructions Outcome: Progressing Problem: Safety Goal: Patient states he/she will alert staff if feeling upset or agitated Outcome: Progressing Goal: Patient will remain in behavioral control and verbalize feelings of anger/agitation appropriately as evidenced by the absence of verbal and physical threats or acts toward others. Outcome: Progressing Goal: Patient will remain free from restraints Outcome: Progressing Problem: Inappropriate behavior Goal: Patient's noted defiance/aggression is being addressed with Attending or Primary Team, to include possible medication change Outcome: Progressing Goal: Patient will identify and verbalize common triggers of his/her anger Outcome: Progressing Goal: Patient will identify and verbalize preferred de-escalation methods such as talking, watching TV, listening to music, writing, and/or medication management Outcome: Progressing Goal: Patient and/or visitor's behavior improving as evidenced by therapeutic listening, verbal de-escalation strategies, and medication management Outcome: Progressing Problem: Participation in plan of care Goal: Patient will participate in plan of care and express preferences, goals, and differences of opinion appropriately Outcome: Progressing Goal: Patient will verbalize expectations of hospital and staff during inpatient stay and express perceptions of unmet expectations appropriately as needed Outcome: Progressing Goal: Patient will exhibit increased participation in plan of care Outcome: Progressing Goal: Patient able to abide by facility rules and follow treatment plan Outcome: Progressing Goal: Patient states willingness to participate with therapy/ADLs Outcome: Progressing Problem: Knowledge deficits Goal: Patient and/or visitor voiced his/her understanding of facility rules and policies Outcome: Progressing Goal: Patient verbalized understanding of hospital restraint philosophy, behaviors warranting the use of restraints, and staff interventions used to reduce the need for restraints Outcome: Progressing Goal: Patient/family/caregiver demonstrates understanding of disease process, disruptive behavior treatment plan, medications, and utilization of de-escalation techniques Outcome: Progressing Problem: Potential for Falls Goal: Patient will remain free of falls Outcome: Progressing Patient is alert, oriented and able to make needs known. He is complaining of pain 8/10 In the right groin. Nausea and pain medications given this shift. Patient able to sleep most of the night. [facility] ([facility]) [facility] [place] 01-20-2024 Plan of Care Right radial c/d/I and soft without hematoma or bleeding. Problem: Knowledge Deficit Goal: Patient/family/caregiver demonstrates understanding of disease process, treatment plan, medications, and discharge instructions Outcome: Progressing Problem: Anxiety Goal: Anxiety is at manageable level Outcome: Progressing Problem: Pain - Adult Goal: Verbalizes/displays adequate comfort level or baseline comfort level Outcome: Progressing Problem: Hemodynamic Status Goal: Patient's vitals signs are stable Outcome: Progressing Goal: Patient has no life threatening arrhythmias Outcome: Progressing Goal: ND Core Measures Outcome: Progressing Problem: Inadequate Coping Goal: Demonstrates ability to cope effectively Outcome: Progressing Goal: Verbalizes adaptive coping mechanisms Outcome: Progressing Goal: Verbalizes personal strengths Outcome: Progressing Problem: Activity Intolerance/Impaired Mobility Goal: Mobility/activity is maintained at optimum level for patient Outcome: Progressing Problem: Nutrition Goal: Nutritional status is improving Outcome: Progressing Problem: ND Discharge Planning Goal: Discharge to home or other facility with appropriate resources Outcome: Progressing Goal: ND Discharge Instructions Outcome: Progressing Problem: Safety Goal: Patient states he/she will alert staff if feeling upset or agitated Outcome: Progressing Goal: Patient will remain in behavioral control and verbalize feelings of anger/agitation appropriately as evidenced by the absence of verbal and physical threats or acts toward others. Outcome: Progressing Goal: Patient will remain free from restraints Outcome: Progressing Problem: Inappropriate behavior Goal: Patient's noted defiance/aggression is being addressed with Attending or Primary Team, to include possible medication change Outcome: Progressing Goal: Patient will identify and verbalize common triggers of his/her anger Outcome: Progressing Goal: Patient will identify and verbalize preferred de-escalation methods such as talking, watching TV, listening to music, writing, and/or medication management Outcome: Progressing Goal: Patient and/or visitor's behavior improving as evidenced by therapeutic listening, verbal de-escalation strategies, and medication management Outcome: Progressing Problem: Participation in plan of care Goal: Patient will participate in plan of care and express preferences, goals, and differences of opinion appropriately Outcome: Progressing Goal: Patient will verbalize expectations of hospital and staff during inpatient stay and express perceptions of unmet expectations appropriately as needed Outcome: Progressing Goal: Patient will exhibit increased participation in plan of care Outcome: Progressing Goal: Patient able to abide by facility rules and follow treatment plan Outcome: Progressing Goal: Patient states willingness to participate with therapy/ADLs Outcome: Progressing Problem: Knowledge deficits Goal: Patient and/or visitor voiced his/her understanding of facility rules and policies Outcome: Progressing Goal: Patient verbalized understanding of hospital restraint philosophy, behaviors warranting the use of restraints, and staff interventions used to reduce the need for restraints Outcome: Progressing Goal: Patient/family/caregiver demonstrates understanding of disease process, disruptive behavior treatment plan, medications, and utilization of de-escalation techniques Outcome: Progressing Problem: Potential for Falls Goal: Patient will remain free of falls Outcome: Progressing [facility] ([facility]) [facility] [place] 01-20-2024 Progress Notes Internal Medicine Progress Note Patient: Catherine Garnett : 1970 Admitted: 01/16/2024 PCP: No primary care provider on file. CC: NSTEMI Subjective: The patient denies any current chest pain at this time, he denies any diaphoresis, nausea, vomiting tolerating diet Physical Exam: Vitals: 01/19/24 1939 01/20/24 0617 01/20/24 0621 01/20/24 0912 BP: (!) 144/72 (!) 144/72 124/76 BP Location: Left arm Left arm Patient Position: Sitting Lying Pulse: 65 66 60 Resp: 18 18 17 Temp: 36.6 \XC2B0\C (97.8 \XC2B0\F) 36.4 \XC2B0\C (97.6 \XC2B0\F) 36.6 \XC2B0\C (97.8 \XC2B0\F) TempSrc: Oral Oral Oral SpO2: 96% 99% 100% Weight: Height: Intake/Output Summary (Last 24 hours) at 01/20/2024 1601 Last data filed at 01/20/2024 0628 Gross per 24 hour Intake 250 ml Output 900 ml Net -650 ml Physical Exam : General: alert, no acute distress Heart: Regular rate and rhythm without murmur, Lungs: Clear bilaterally, on RA Abdomen: obese, Soft, non tender, NABS Extremities: no edema, cyanosis or clubbing Neuro- moving all 4 extremities, no focal deficits Psych: Normal mood and affect Review of Relevant Data: I have reviewed the following items and time marty (where applicable) has been applied. LABS: Results from last 7 days Lab Units 01/18/24 1614 WBC AUTO K/uL 9.54 HEMOGLOBIN g/dL 15.1 HEMATOCRIT % 45.4 MCV fL 84 PLATELETS AUTO K/uL 237 Results from last 7 days Lab Units 01/20/24 0703 GLUCOSE mg/dL 86 CALCIUM mg/dL 8.5 SODIUM mmol/L 139 POTASSIUM mmol/L 4.3 CO2 mmol/L 27 CHLORIDE mmol/L 107 BUN mg/dL 23 CREATININE mg/dL 1.04 Cardiac catheterization Result Date: 01/20/2024 History/Risk Factors Hypertension: Yes Myocardial Infarction (ND): Yes Tobacco Use: Current - Every Day Prior Interventions CABG: Yes Report Signatures Interventional Finalized by Chalo Garcia MD on 01/20/2024 03:19 PM Diagnostic Finalized by Chalo Garcia MD on 01/20/2024 03:19 PM Patient Info Name: Catherine Garnett Age: 53 yrs Admit Date: 01/16/2024 Exam Date: 01/20/2024 11:19 AM Patient Status: I Site: [facility] Ht: 68 in Wt: 254 lbs BSA: 2.40 m2 Any Known Allergies: NO KNOWN DRUG ALLERGIES Gender: Male : 1970 Exam Type: CARDIAC CATHETERIZATION Performing Physician(s): Chalo Garcia MD Procedure(s) Description: Sonosite Description: IVUS (LAD Prox) Description: Stent (LAD Prox) Description: Re inflate stent bal (LAD Prox) Exam Priority: R Indication(s) - coronary artery disease Conclusions 1. Successful IVUS guided PTCA/JOSESITO of proximal LAD with reduction in stenosis from 90% to 0%. Recommendations * Smoking cessation counseling is recommended for this patient. Cath Hemodynamic Data Pressures Phase:DefaultPhase AO : 87 mmHg/56 mmHg(71 mmHg) @ 11:36:50 AM 102 mmHg/66 mmHg(82 mmHg) @ 11:44:46 AM AO HR: 56 bpm @ 11:36:50 AM 58 bpm @ 11:44:46 AM Clinical Evaluation EBL: 10 ml Specimen Collected: No Procedural Details Patient identified and assessed by provider immediately prior to induction of moderate sedation. 100 mcg CARDENE (NICARDIPINE) given in lab by CHALO GARCIA via Intra-arterial. Ordered by CHALO GARCIA. Reason: For Radial Access Mixture. Time out to confirm correct patient, procedure and site was performed by bottle label inspector staff and MD. 100 mcg NITROGLYCERIN (IC) given. In the LAD Prox the Xience Skypoint 3.25mm x 18mm balloon was re-inflated to 18 atms for 15 seconds. In the LAD Prox a OptiCross 6 HD 6Fr was inserted and advanced. Images were obtained. 200 mcg NITROGLYCERIN (IC) given. Right radial and Right groin prepped with Chloraprep and draped in sterile fashion. In the LAD Prox the Xience Skypoint 3.25mm x 18mm balloon was re-inflated to 20 atms for 15 seconds. In the LAD Prox the Xience Skypoint 3.25mm x 18mm balloon was re-inflated to 22 atms for 15 seconds. 5 mL LIDOCAINE 1% given. In the Radial (right) a Glidesheath Slender 6F x 10cm was inserted and advanced. No nausea/vomiting. 5000 units HEPARIN given. 0.75 mg/kg Angiomax Bolus (Bivalirudin) given in lab by Eliseo Cobian via Peripheral IV. Amount given = 86.25 mg. Ordered by CHALO GARCIA. Reason: For Anticoagulation. BM in for BR. Post-procedure instructions given; patient acknowledges understanding of instructions. Ultrasound guidance used for access. In the LAD Prox a Xience Skypoint 3.25mm x 18mm was deployed at 12 atms for 15 seconds. Pre-procedure questions/concerns addressed. Patient indicates an understanding, no further concerns at this time. 200 mcg NITROGLYCERIN given. No complications noted. Fair results from medication. 1.75 mg/kg/hr Angiomax Infusion (Bivalirudin) given in lab by Eliseo Cobian via Peripheral IV. Pump/Drip Flow = 40.25 ml/hr using NaCl 0.9% 50ml with a concentration of 250 mg in 50 ml. Ordered by CHALO GARCIA. Reason: For Anticoagulation. Plan of care followed. Pt transported by bed. 2 l/min OXYGEN given. Sheath was removed and hemostasis achieved using TR Band Large 29cm. 8mL of air in band. In the LAD Prox the Xience Skypoint 3.25mm x 18mm balloon was re-inflated to 15 atms for 15 seconds. Report given to LEIF Mendoza Tele. Access Site Inserted: 11:31 AM Sheath: 6F x 10cm Glidesheath Slender Site: Radial (right) Removed: 12:01 PM Hemostasis Method: 29cm TR Band Large Complication Findings No complications occurred during the procedure. X-ray Summary Total Time (min): 6.80 Interventional Time (min): --- Diagnostic Time (min): --- Total Dose (mGy): --- Air Kerma (mGy): --- DAP (cGy*cm2): --- Contrast Contrast: Isovue-370 Amount (mL): 90 ml Procedure Note The patient was prepped and draped in a sterile fashion. 1% Xylocaine was instilled as a local anesthetic. Under my direct supervision, moderate sedation was administered in the form of divided doses of intravenous Versed and intravenous fentanyl. The patient was monitored with the assistance of an independent trained observer during the case. Under ultrasound guidance, the right radial artery was cannulated with a micropuncture needle and via the modified Seldinger technique a 6 [place] Glidesheath was inserted into the right radial artery. A standard cocktail of heparin, nitroglycerin, and nicardipine was administered intra-arterially. Angiomax was administered according to protocol. The left main trunk was cannulated with a 6 [place] EBU 3.75 guide catheter. The first diagonal branch was cannulated with a Choice PT extra-support wire. Intravascular ultrasound of the proximal LAD was performed. The proximal LAD was then stented with a 3.25 mm x 18 mm Xience drug-eluting stent. Serial follow-up high-pressure dilatations were performed to a luminal diameter of approximately 3.5 mm. Follow-up IVUS was performed. Follow-up angiography was performed. This demonstrated superimposed spasm upon an area of moderate stenosis in the midportion of the first diagonal branch undoubtedly related to the IVUS catheter. This resolved with the administration of intracoronary nitroglycerin and final angiography demonstrated a very satisfactory result. The catheter was withdrawn and the sheath was removed. Hemostasis was achieved with a TR band. The patient tolerated the procedure well without complications and left the cardiac catheterization laboratory in stable condition. MEDICATIONS: Scheduled: amLODIPine, 10 mg, oral, Daily [START ON 01/21/2024] aspirin, 81 mg, oral, Daily [START ON 01/21/2024] atorvastatin, 80 mg, oral, Daily carvediloL, 25 mg, oral, BID AC clopidogreL, 75 mg, oral, Daily ezetimibe, 10 mg, oral, HS isosorbide mononitrate, 120 mg, oral, Daily [START ON 01/21/2024] losartan, 50 mg, oral, Daily nicotine, 1 patch, transdermal, Daily pantoprazole, 40 mg, oral, q AM AC polyethylene glycol, 17 g, oral, Daily QUEtiapine, 50 mg, oral, HS ranolazine, 500 mg, oral, BID sennosides-docusate sodium, 1 tablet, oral, HS sodium chloride 0.9 % (flush), 10 mL, intravenous, q12h CAROLANN spironolactone, 25 mg, oral, Daily PRN: albuterol, 2.5 mg alum-mag hydroxide-simeth, 15 mL calcium carbonate, 500 mg HYDROcodone-acetaminophen, 1 tablet ibuprofen, 600 mg LORazepam, 0.5 mg naloxone, 0.1 mg nitroglycerin, 0.4 mg ondansetron, 4 mg Insert peripheral IV, AND Maintain IV access, AND Saline lock IV, AND sodium chloride 0.9 % (flush), 10 mL zolpidem, 5 mg Infusions: Assessment/Plan: Principal Problem: Unstable angina (HCC) Active Problems: Coronary artery disease involving autologous vein coronary bypass graft with unstable angina pectoris (HCC) Primary hypertension Class 1 obesity due to excess calories with body mass index (BMI) of 32.0 to 32.9 in adult Bipolar 1 disorder (HCC) Tobacco dependence Acute on chronic systolic (congestive) heart failure (HCC) NSTEMI- on telemetry, discuss treatment plan with Cardiology. continue on heparin drip, nitroglycerin as needed for pain as well as long-acting nitroglycerin, Imdur. Continue with aspirin and p.r.n. pain meds Coronary artery disease involving autologous vein coronary bypass graft with unstable angina pectoris - cardiac catheterization today did reveal some occlusions in LAD, will plan on staged interventions either today or tomorrow, See above for treatment plan, on Ranexa, spironolactone Hypertension-need to monitor this very closely and keep his systolics below 140, continue with amlodipine, carvedilol and losartan. Bipolar disorder- on Seroquel, on Zyprexa as needed Tobacco dependency-nicotine patch has been ordered Electronically Signed by Betty Solitario MD 01/20/2024 4:01 PM [facility] ([facility]) [facility] [place] 01-20-2024 Progress Notes [facility] [address] [address] Cardiology Hospital Progress Note Patient:Catherine Garnett :1970 Admitted:01/16/2024 Today's date: 01/20/24 Subjective Data: cont to have chest pain Social history: Tobacco use: reports that he has been smoking cigarettes. He has never used smokeless tobacco. Past Medical History: Diagnosis Date Asthma Congestive heart failure (HCC) Coronary arteriosclerosis Essential hypertension Hyperlipidemia Past Surgical History: Procedure Laterality Date CARDIAC RHYTHM INTERVENTION History reviewed. No pertinent family history. LAB RESULTS: Lab Results Component Value Date NA 139 01/20/2024 K 4.3 01/20/2024 CL 107 01/20/2024 CO2 27 01/20/2024 BUN 23 01/20/2024 CREATININE 1.04 01/20/2024 CALCIUM 8.5 01/20/2024 GLUCOSE 86 01/20/2024 Lab Results Component Value Date WBC 9.54 01/18/2024 HGB 15.1 01/18/2024 HCT 45.4 01/18/2024 PLT 237 01/18/2024 No results found for: TSH Lab Results Component Value Date PT 11.6 01/18/2024 INR 1.0 01/18/2024 No results found for: TROPONINI Lab Results Component Value Date PROBNP 288 (H) 01/19/2024 Imaging Results: No results found. EKG/Tele Results: SB 50s Cardiology testing: CAD s/p CABG x4 2022 ICMP with normalized EF HTN HLD Bipolar disorder Angina 11/14/2023 Stress test Normal pharmacologic MPI. No ischemia or infarct. Normal left ventricular systolic function with LVEF 61%. Nondiagnostic pharmacologic EKG portion. Low risk for ischemic event in one year. Recommend continued medical management and aggressive risk factor reduction. Further evaluation should be based on symptom course. 11/10/2023 Echo 1. Left ventricular ejection fraction, by visual estimation, is 60 to 65%. 2. LV Diastology is indeterminate. 3. Mild concentric left ventricular hypertrophy. 4. Normal right ventricular size and systolic function. 5. Borderline dilated left atrium. 6. Mildly dilated right atrium. 7. Mild aortic valve sclerosis without stenosis. 8. Unable to adequately obtain RVSP. 9. Dilated inferior vena cava. 10. Trivial pericardial effusion. 04/11/22 Cardiac Cath Findings: 1. Right dominant coronary anatomy with a type 3 LAD. 2. 95% proximal LAD in stent restenosis. 60% mid LAD stenosis distal to D1. 3. 80% distal LCx stenosis 4. 60% distal RCA stenosis proximal to PDA 5. LVEDP = 30 mmHg. Vital Signs: BP 124/76 (BP Location: Left arm, Patient Position: Lying) Pulse 60 Temp 36.6 \XC2B0\C (97.8 \XC2B0\F) (Oral) Resp 17 Ht 1.727 m (5' 8) Wt 115 kg (253 lb 12 oz) SpO2 100% BMI 38.58 kg/m\XC2B2\ Physical Exam: PHYSICAL EXAM: General appearance - NAD comfortable HEENT - Neck Supple, no JVD Chest -REY+ CTA Heart - S1s2+ RRR Abdomen -Soft NT ND Neurological - No focal deficits Extremities -No cyanosis, clubbing, edema Skin - Intact PRIMARY DIAGNOSIS Unstable angina (HCC) Assessment: 53 yo male admitted with chest pain, trop has been negative 3 times. Assessment /Plan: # Chest pain for further evaluation: # Hx of CAD S/P CABG Surgery in [place], [place]. - We titrated his antianginal medications yesterday, but he cont to experience severe chest pain with exertion. Hence we proceeded with a stress test which showed large area of ischemia. [facility] on 01/19/2024 showed patent graft with proximal LAD lesion that compromises the diagonal branch and could explain his anterior wall ischemia. Will plan for stage PCI today. - Cont heparin drip. - Cont amlodipine 10 mg daily, aspirin 81 mg daily, - Cont imdur to 120 mg and Cont ranolazine 500 mg daily. - Cont Coreg to 25 mg bid. - Hopefully he can go home tomorrow, if his cp is better. # Mixed hyperlipidemia - Cont zetia - Cont Lipitor 40 - LDL is 142 mg/dL # Ischemic cardiomyopathy with recovered EF # HTN urgency: - Cont amlodipine 10 mg daily, aldactone 25 mg daily. - Cont imdur to 120 mg and Coreg to 25 mg bid. - Cont losartan 25 mg daily. # Tobacco use Off note: Discussed with interventional team and per further looking into his outside records it showed that he has only three bypasses, the above-mentioned grafts. Also noted in the records is recurrent mentions of noncompliance and substance abuse. He has had frequent health care encounters for chest pain at multiple different hospitals in different locations. Plan discussed with referring physician and nursing team. Kai Mckoy MD [facility] ([facility]) [facility] [place] 01-20-2024 Progress Notes [facility] [address] [place] [address] Cardiology Hospital Progress Note Patient:Catherine Garnett :1970 Admitted:01/16/2024 Today's date: 01/20/24 Subjective Data: cont to have chest pain Social history: Tobacco use: reports that he has been smoking cigarettes. He has never used smokeless tobacco. Past Medical History: Diagnosis Date Asthma Congestive heart failure (HCC) Coronary arteriosclerosis Essential hypertension Hyperlipidemia Past Surgical History: Procedure Laterality Date CARDIAC RHYTHM INTERVENTION History reviewed. No pertinent family history. LAB RESULTS: Lab Results Component Value Date NA 139 01/20/2024 K 4.3 01/20/2024 CL 107 01/20/2024 CO2 27 01/20/2024 BUN 23 01/20/2024 CREATININE 1.04 01/20/2024 CALCIUM 8.5 01/20/2024 GLUCOSE 86 01/20/2024 Lab Results Component Value Date WBC 9.54 01/18/2024 HGB 15.1 01/18/2024 HCT 45.4 01/18/2024 PLT 237 01/18/2024 No results found for: TSH Lab Results Component Value Date PT 11.6 01/18/2024 INR 1.0 01/18/2024 No results found for: TROPONINI Lab Results Component Value Date PROBNP 288 (H) 01/19/2024 Imaging Results: No results found. EKG/Tele Results: SB 50s Cardiology testing: CAD s/p CABG x4 2022 ICMP with normalized EF HTN HLD Bipolar disorder Angina 11/14/2023 Stress test Normal pharmacologic MPI. No ischemia or infarct. Normal left ventricular systolic function with LVEF 61%. Nondiagnostic pharmacologic EKG portion. Low risk for ischemic event in one year. Recommend continued medical management and aggressive risk factor reduction. Further evaluation should be based on symptom course. 11/10/2023 Echo 1. Left ventricular ejection fraction, by visual estimation, is 60 to 65%. 2. LV Diastology is indeterminate. 3. Mild concentric left ventricular hypertrophy. 4. Normal right ventricular size and systolic function. 5. Borderline dilated left atrium. 6. Mildly dilated right atrium. 7. Mild aortic valve sclerosis without stenosis. 8. Unable to adequately obtain RVSP. 9. Dilated inferior vena cava. 10. Trivial pericardial effusion. 04/11/22 Cardiac Cath Findings: 1. Right dominant coronary anatomy with a type 3 LAD. 2. 95% proximal LAD in stent restenosis. 60% mid LAD stenosis distal to D1. 3. 80% distal LCx stenosis 4. 60% distal RCA stenosis proximal to PDA 5. LVEDP = 30 mmHg. Vital Signs: BP 124/76 (BP Location: Left arm, Patient Position: Lying) Pulse 60 Temp 36.6 \XC2B0\C (97.8 \XC2B0\F) (Oral) Resp 17 Ht 1.727 m (5' 8) Wt 115 kg (253 lb 12 oz) SpO2 100% BMI 38.58 kg/m\XC2B2\ Physical Exam: PHYSICAL EXAM: General appearance - NAD comfortable HEENT - Neck Supple, no JVD Chest -REY+ CTA Heart - S1s2+ RRR Abdomen -Soft NT ND Neurological - No focal deficits Extremities -No cyanosis, clubbing, edema Skin - Intact PRIMARY DIAGNOSIS Unstable angina (HCC) Assessment: 53 yo male admitted with chest pain, trop has been negative 3 times. Assessment /Plan: # Chest pain for further evaluation: # Hx of CAD S/P CABG Surgery in [place], [place]. - We titrated his antianginal medications yesterday, but he cont to experience severe chest pain with exertion. Hence we proceeded with a stress test which showed large area of ischemia. [facility] on 01/19/2024 showed patent graft with proximal LAD lesion that compromises the diagonal branch and could explain his anterior wall ischemia. Will plan for stage PCI today. - Cont heparin drip. - Cont amlodipine 10 mg daily, aspirin 81 mg daily, - Cont imdur to 120 mg and Cont ranolazine 500 mg daily. - Cont Coreg to 25 mg bid. - Hopefully he can go home tomorrow, if his cp is better. # Mixed hyperlipidemia - Cont zetia - Cont Lipitor 40 - LDL is 142 mg/dL # Ischemic cardiomyopathy with recovered EF # HTN urgency: - Cont amlodipine 10 mg daily, aldactone 25 mg daily. - Cont imdur to 120 mg and Coreg to 25 mg bid. - Increase losartan to 50 mg daily. # Tobacco use Off note: Discussed with interventional team and per further looking into his outside records it showed that he has only three bypasses, the above-mentioned grafts. Also noted in the records is recurrent mentions of noncompliance and substance abuse. He has had frequent health care encounters for chest pain at multiple different hospitals in different locations. Plan discussed with referring physician and nursing team. Kai Mckoy MD [facility] ([facility]) [facility] [place] 01-20-2024 Case Management Note UNIT BASED INTERDISCIPLINARY ROUNDS NOTE [id number] - CATHERINE GARNETT 1970 (53 y.o.) - male ADMIT DATE: 01/16/2024 ATTENDING: Betty Solitario MD LOS: 2 days Current CLS SCORE: TX/PROC HX Day of Surgery CONSULTS: IP CONSULT TO CARDIOLOGY DX: Unstable angina (HCC) ALLERGIES: No Known Allergies CODE: Full Code ADMIT WT: Weight: 116 kg (255 lb) LAST WT: 115 kg (253 lb 12 oz) PENDING LABS PENDING TESTS Daily labs ACTIVITY/DVT: Mobility Activity: Ambulate in room Activity Level of Assistance: Independent Assistive Device: None Activity Response: Tolerated well Repositioned: Turns self Positioning Frequency: Able to turn self Weight Bearing Status: Total Head of Bed Elevated : Self regulated Heels / Feet: Foot of bed elevated Range of Motion: Active, All extremities Anti-Embolism Device Ordered: Bilateral, SCD, below knee Anti-Embolism Intervention: Off Reason no Mechanical VTE Applied: Patient Refused Total Fall Risk Score: 3 *Scoring Info: Less than 6 = Low fall risk score; 6-13 = Moderate fall risk score; Greater than 13 = High fall risk score ISOLATION: No active isolations INFECTION: No active infections PATIENT OVERVIEW Neurological: Cardiac: Cardiac Rhythm: Normal sinus rhythm EDEMA Resp: GI: Last BM Date: 01/19/24 (Pt reported) : Urine Color: Yellow/straw Urine Appearance: Clear Urine Odor: No odor Intake/Output: 01/18 0701 - 01/19 0700 In: 250 [P.O.:240; I.V.:10] Out: 900 [Urine:900] Maintenance Dialysis History Patient has no recorded history of maintenance dialysis. INTEGUMENTARY: WOUNDS/INCISIONS/PRESSURE INJURIES: Fawad Scale Score: 23 CONTINUOUS INFUSIONS: VASCULAR ACCESS: Peripheral IV 01/18/24 Anterior;Right Forearm (Active) Number of days: 2 CURRENT MEDS: Scheduled amLODIPine, 10 mg, oral, Daily [START ON 01/21/2024] aspirin, 81 mg, oral, Daily atorvastatin, 40 mg, oral, Daily atorvastatin, 80 mg, oral, q PM carvediloL, 25 mg, oral, BID AC clopidogreL, 75 mg, oral, Daily ezetimibe, 10 mg, oral, HS isosorbide mononitrate, 120 mg, oral, Daily losartan, 25 mg, oral, Daily nicotine, 1 patch, transdermal, Daily pantoprazole, 40 mg, oral, q AM AC polyethylene glycol, 17 g, oral, Daily QUEtiapine, 50 mg, oral, HS ranolazine, 500 mg, oral, BID sennosides-docusate sodium, 1 tablet, oral, HS sodium chloride 0.9 % (flush), 10 mL, intravenous, q12h CAROLANN spironolactone, 25 mg, oral, Daily RX/PHARMACY Have you had an influenza vaccine this season?: No SOCIAL: Decision Maker: Advance Dir: Not Received Payor: MEDICAID OUT OF STATE / Plan: MEDICAID OUT OF STATE OTHER / Product Type: *No Product type* / Anticipated needs @ TX/DC:No new recommendations ANCILLARY THERAPIES: PT/OT/SLT RECS: NA RESTRAINTS: SITTER: No No BERNADETTE Tomorrow TODAY'S PLAN: Cardiac Cath today, continue current care management, awaiting medical stability. Identified Care Management Needs: Please notify Care Management if the patient's condition changes and Care Management support is needed. ATTENDEES: Case Management, surveillance observer, Nurse Import And Export Clerk, Provider, RN, and Operations Analyst COMMENTS: Planning for discharge tomorrow, Pt will return to the community. Electronically signed by Lucia Cutler LMSW 01/20/24 12:31 PM [facility] ([facility]) [facility] [place] 01-20-2024 Brief Op Note Cardiac catheterization PROCEDURE NOTE Procedures: PCI PCI performed via right radial artery without difficulty or complication. Successful IVUS guided PTCA/JOSESITO of proximal LAD with reduction in stenosis from 90% to 0%. No complications. The magnitude of his almost constant chest pain, and his frequent requests for IV morphine, are incongruous with the degree of CAD and the lack of EKG changes or troponin elevations, I think it very unlikely that this PCI will resolve his chest pains, but the procedure nonetheless had good indications. Full report to follow. [facility] ([facility]) [facility] [place] 01-20-2024 Nursing Note 01/20/24 1014 Patient Progress Rounds Patient expects to be discharged to: Home Stable and completed treatment? N Today we still await: Clinical stability;Diagnostic work-up;Reinforcing Steel Erector recommendations;Procedure Procedures Cardiology/[facility] Cardiology Discharge Delays Diagnostic Diagnostic Treatment(s) needed [facility] ([facility]) [facility] [place] 01-20-2024 Pre-Procedure Note Cardiology Pre-Procedure Note Today's Date: 01/20/24 Medical History/Indications for Procedure: See H&P Changes in patient condition since H&P completed: NONE Pre-Procedure diagnosis: CAD, CP Mallampati: 3 ASA Status: ASA III (A patient with severe systemic disease) Consent: I have reviewed the procedure risks, benefits, options and use of conscious sedation with the patient and/or family and a good understanding has been verbalized. The patient and/or family agrees to proceed. Written consent has been obtained. Physician Electronic Signature: Chalo Garcia MD 01/20/2024, 8:02 AM [facility] ([facility]) [facility] [place] 01-20-2024 Plan of Care Pt A/O x 4, Able to make needs known. Pt remained NPO for a bottle label inspector procedure to be completed 01/19, Pt observed with mood swings but controls self when irritated on this shift. Continues to request Morphine as needed and will refuse PO medications when offered for pain. Encouraged to use the non-skid socks or wear shoes but pt stated I am fine with my socks. Problem: Knowledge Deficit Goal: Patient/family/caregiver demonstrates understanding of disease process, treatment plan, medications, and discharge instructions Outcome: Progressing Problem: Anxiety Goal: Anxiety is at manageable level Outcome: Progressing Problem: Pain - Adult Goal: Verbalizes/displays adequate comfort level or baseline comfort level Outcome: Progressing Problem: Hemodynamic Status Goal: Patient's vitals signs are stable Outcome: Progressing Goal: Patient has no life threatening arrhythmias Outcome: Progressing Goal: ND Core Measures Outcome: Progressing Problem: Inadequate Coping Goal: Demonstrates ability to cope effectively Outcome: Progressing Goal: Verbalizes adaptive coping mechanisms Outcome: Progressing Goal: Verbalizes personal strengths Outcome: Progressing Problem: Activity Intolerance/Impaired Mobility Goal: Mobility/activity is maintained at optimum level for patient Outcome: Progressing Problem: Nutrition Goal: Nutritional status is improving Outcome: Progressing Problem: ND Discharge Planning Goal: Discharge to home or other facility with appropriate resources Outcome: Progressing Goal: ND Discharge Instructions Outcome: Progressing Problem: Safety Goal: Patient states he/she will alert staff if feeling upset or agitated Outcome: Progressing Goal: Patient will remain in behavioral control and verbalize feelings of anger/agitation appropriately as evidenced by the absence of verbal and physical threats or acts toward others. Outcome: Progressing Goal: Patient will remain free from restraints Outcome: Progressing Problem: Inappropriate behavior Goal: Patient's noted defiance/aggression is being addressed with Attending or Primary Team, to include possible medication change Outcome: Progressing Goal: Patient will identify and verbalize common triggers of his/her anger Outcome: Progressing Goal: Patient will identify and verbalize preferred de-escalation methods such as talking, watching TV, listening to music, writing, and/or medication management Outcome: Progressing Goal: Patient and/or visitor's behavior improving as evidenced by therapeutic listening, verbal de-escalation strategies, and medication management Outcome: Progressing Problem: Participation in plan of care Goal: Patient will participate in plan of care and express preferences, goals, and differences of opinion appropriately Outcome: Progressing Goal: Patient will verbalize expectations of hospital and staff during inpatient stay and express perceptions of unmet expectations appropriately as needed Outcome: Progressing Goal: Patient will exhibit increased participation in plan of care Outcome: Progressing Goal: Patient able to abide by facility rules and follow treatment plan Outcome: Progressing Goal: Patient states willingness to participate with therapy/ADLs Outcome: Progressing Problem: Knowledge deficits Goal: Patient and/or visitor voiced his/her understanding of facility rules and policies Outcome: Progressing Goal: Patient verbalized understanding of hospital restraint philosophy, behaviors warranting the use of restraints, and staff interventions used to reduce the need for restraints Outcome: Progressing Goal: Patient/family/caregiver demonstrates understanding of disease process, disruptive behavior treatment plan, medications, and utilization of de-escalation techniques Outcome: Progressing Problem: Potential for Falls Goal: Patient will remain free of falls Outcome: Progressing [facility] ([facility]) [facility] [place] 01-19-2024 Progress Notes Internal Medicine Progress Note Patient: Catherine Garnett : 1970 Admitted: 01/16/2024 PCP: No primary care provider on file. CC: chest pain Subjective: The pt denies any acute chest pain today, walking around the room. Physical Exam: Vitals: 01/19/24 1500 01/19/24 1600 01/19/24 1700 01/19/24 1939 BP: 105/74 (!) 98/54 112/62 129/66 BP Location: Left arm Left arm Patient Position: Lying Sitting Pulse: (!) 115 61 69 66 Resp: 16 16 17 18 Temp: 36.6 \XC2B0\C (97.8 \XC2B0\F) 36.6 \XC2B0\C (97.8 \XC2B0\F) TempSrc: Oral Oral SpO2: 100% 100% 99% 96% Weight: Height: No intake or output data in the 24 hours ending 01/19/242010 Physical Exam : General: alert, no acute distress Heart: Regular rate and rhythm without murmur, pulses present in extremities Lungs: Clear bilaterally, on RA Abdomen: obese, Soft, non tender, NABS Extremities: no edema, cyanosis or clubbing Neuro- moving all 4 extremities, no focal deficits Psych: Normal mood and affect Review of Relevant Data: I have reviewed the following items and time marty (where applicable) has been applied. LABS: Results from last 7 days Lab Units 01/18/24 1614 WBC AUTO K/uL 9.54 HEMOGLOBIN g/dL 15.1 HEMATOCRIT % 45.4 MCV fL 84 PLATELETS AUTO K/uL 237 Results from last 7 days Lab Units 01/16/24 1457 GLUCOSE mg/dL 102 CALCIUM mg/dL 9.4 SODIUM mmol/L 138 POTASSIUM mmol/L 4.2 CO2 mmol/L 28 CHLORIDE mmol/L 107 BUN mg/dL 14 CREATININE mg/dL 1.08 Cardiac catheterization Result Date: 01/19/2024 History/Risk Factors Hypertension: Yes Myocardial Infarction (ND): Yes Tobacco Use: Current - Every Day Prior Interventions CABG: Yes Report Signatures Interventional Finalized by Chalo Garcia MD on 01/19/2024 03:40 PM Diagnostic Finalized by Chalo Garcia MD on 01/19/2024 03:40 PM Patient Info Name: Catherine Garnett Age: 53 yrs Admit Date: 01/16/2024 Exam Date: 01/19/2024 9:58 AM Patient Status: I Site: [facility] Wt: 254 lbs Gender: Male : 1970 Exam Type: CARDIAC CATHETERIZATION Performing Physician(s): Chalo Garcia MD Procedure(s) Description: Sonosite Description: Sheath Exchange (Fem Art (right)) Description: L Heart Cath Description: Coronary Angiogram (LCA) Description: Angiogram (LV) Description: Cor Angio Charge Description: Graft CASI Description: Graft SVG Exam Priority: R Conclusions 1. Coronary atherosclerosis, with 90% proximal LAD, subtotal mid LAD, 70 to 80% distal codominant CX, 100% small codominant RCA, and mild to moderate disease elsewhere.Patent EPSTEIN to LAD.Patent SVG to distal OM.Patent SVG to PDA.Remote myocardial infarction with moderate left ventricular systolic dysfunction. LVEF approximately 45%. Recommendations * The patient's potential source of ischemia is the distribution of the large first diagonal branch, which is compromised by being sandwiched between the 90% proximal LAD lesion and the subtotal occlusion mid vessel. Based upon his persistent and refractory symptoms and his abnormal nuclear stress test, he is a candidate for PCI of the proximal LAD to restore normal flow into the diagonal branch. PCI was not performed today because of the development of dyspnea with concern for congestive heart failure triggered by fluids and contrast administration. This will be performed in a staged fashion after he is diuresed and his dyspnea resolves. Diagnostic Findings * LMT: Mild irregularities.LAD: 90% proximal then subtotal occlusion in its midportion immediately after the origin of the first diagonal branch. Beyond the point of subtotal occlusion the vessel fills via the EPSTEIN graft and displays mild irregularities. The first diagonal branch is a large diagonal with multiple side branches.CX: Probably balanced circulation. Diffuse mild to moderate disease in the proximal and middle portion of the main trunk, then more severe diffuse disease distally up to 70 to 80%.RCA: Probably codominant. Small in caliber, diffusely diseased and 100% occluded.EPSTEIN to LAD: Patent.SVG to distal OM: Patent.SVG to PDA: Patent. Cath Hemodynamic Data Pressures Phase:DefaultPhase AO : 104 mmHg/67 mmHg(83 mmHg) @ 11:29:00 AM 123 mmHg/65 mmHg(92 mmHg) @ 11:59:10 AM LV :139 mmHg/19 mmHg/41 mmHg @ 11:57:32 AM 125 mmHg/11 mmHg/36 mmHg @ 11:59:10 AM AO HR: 55 bpm @ 11:29:00 AM 61 bpm @ 11:59:10 AM LV HR: 63 bpm @ 11:57:32 AM 61 bpm @ 11:59:10 AM LV DP/DT: 1,000 mmHg/s @ 11:57:32 AM 1,000 mmHg/s @ 11:59:10 AM Clinical Evaluation EBL: 10 ml Specimen Collected: No Procedural Details Time out to confirm correct patient, procedure and site was performed by bottle label inspector staff and MD. Bilateral groins prepped with Chloraprep and draped in sterile fashion. Fair results from medication. Patient identified and assessed by provider immediately prior to induction of moderate sedation. Ultrasound guidance used for access. Pre-procedure questions/concerns addressed. Patient indicates an understanding, no further concerns at this time. Fair results from medication. Sheath was removed and hemostasis achieved using Angio-Seal VIP 6F. 10 mL LIDOCAINE 1% given. No complications noted. The existing sheath was exchanged for a [place] Intro Sheath 6F x 10 cm in the Fem Art (right). In the Fem Art (right) a S-FinAnalytica Mini Access Kit 4F was inserted and advanced. Fair results from medication. LCA angiogram performed. No nausea/vomiting. SVG Graft Injection. LV angiogram performed. A Left Heart Cath was performed. CASI Graft Injected. Report given to radiotelephone operator. Op Site applied to Right puncture site. Plan of care followed. Post-procedure instructions given; patient acknowledges understanding of instructions. Pt transported by bed. Access Site Inserted: 11:27 AM Sheath: 4F S-FinAnalytica Mini Access Kit Site: Fem Art (right) Removed: 12:02 PM Hemostasis Method: 6F Angio-Seal VIP X-ray Summary Total Time (min): 13.90 Interventional Time (min): --- Diagnostic Time (min): --- Total Dose (mGy): --- Air Kerma (mGy): --- DAP (cGy*cm2): --- Contrast Contrast: Isovue-370 Amount (mL): 215 ml Left Ventriculography Findings The left ventricle appears borderline in size. There is hypokinesis of the mid and distal anterolateral wall and cardiac apex. Overall left ventricular systolic function is moderately impaired with an estimated ejection fraction of approximately 45%. Trace mitral regurgitation isseen on the motion studies. There is no significant aortic valve disease demonstrated under the conditions of this study. Procedure Note The patient was prepped and draped in a sterile fashion. 1% Xylocaine was instilled as a local anesthetic. Under my direct supervision, moderate sedation was administered in the form of divided doses of intravenous Versed and intravenous fentanyl. The patient was monitored with the assistance of an independent trained observer during the case. Under ultrasound guidance, the right femoral artery was cannulated with a micropuncture needle, and via the modified Seldinger technique a 4 [place] sheath was inserted into the right femoral artery. Femoral angiography was performed with a dilute contrast solution. The 4 [place] sheath was exchanged for a 6 [place] sheath using proper technique. Selective coronary angiography of the left and right coronary arteries was performed in the various angulated views using 6 [place] JL4 and 6 [place] JR4 catheters respectively. Selective angiography of the saphenous vein grafts was performed with the JR4 catheter. Selective angiography of the left internal mammary artery graft was performed with a 6 [place] CASI catheter. Left ventriculography was performed in the ROMERO projection using a 6 [place] pigtail catheter. At the conclusion of the diagnostic portion of the procedure, after left ventriculography, the patient complained of shortness of breath. He appeared mildly tachypneic, but in no distress, and his oxygen saturations on 2 L nasal cannula remained above 90%. However in view of his complaints of dyspnea, concern arose for the onset of pulmonary congestion triggered by contrast administration, therefore the procedure was terminated before progressing to PCI of the proximal LAD. The catheters were withdrawn. The sheath was removed. Hemostasis was achieved with use of the Angio-Seal hemostasis device as well as direct pressure. The patient tolerated the procedure well without complications, and left the cardiac catheterization laboratory in stable condition. MEDICATIONS: Scheduled: amLODIPine, 10 mg, oral, Daily aspirin, 81 mg, oral, Daily atorvastatin, 40 mg, oral, Daily carvediloL, 25 mg, oral, BID AC [START ON 01/20/2024] clopidogreL, 75 mg, oral, Daily ezetimibe, 10 mg, oral, HS furosemide, 40 mg, intravenous, BID-D isosorbide mononitrate, 120 mg, oral, Daily losartan, 25 mg, oral, Daily nicotine, 1 patch, transdermal, Daily pantoprazole, 40 mg, oral, q AM AC polyethylene glycol, 17 g, oral, Daily QUEtiapine, 50 mg, oral, HS ranolazine, 500 mg, oral, BID sennosides-docusate sodium, 1 tablet, oral, HS sodium chloride 0.9 % (flush), 10 mL, intravenous, q12h CAROLANN spironolactone, 25 mg, oral, Daily PRN: albuterol, 2.5 mg alum-mag hydroxide-simeth, 15 mL calcium carbonate, 500 mg HYDROcodone-acetaminophen, 1 tablet ibuprofen, 600 mg LORazepam, 0.5 mg morphine, 2 mg naloxone, 0.1 mg nitroglycerin, 0.4 mg ondansetron, 4 mg Insert peripheral IV, AND Maintain IV access, AND Saline lock IV, AND sodium chloride 0.9 % (flush), 10 mL zolpidem, 5 mg Infusions: Assessment/Plan: Principal Problem: Unstable angina (HCC) Active Problems: Coronary artery disease involving autologous vein coronary bypass graft with unstable angina pectoris (HCC) Primary hypertension Class 1 obesity due to excess calories with body mass index (BMI) of 32.0 to 32.9 in adult Bipolar 1 disorder (HCC) Tobacco dependence Unstable angina- on telemetry, discuss treatment plan with Cardiology. echocardiogram reviewed, the ejection fraction - 65 percent. cardiac catheterization today did reveal some occlusions in LAD, will plan on staged intervention, continue on heparin drip, nitroglycerin as needed for pain as well as long-acting nitroglycerin, Imdur. Continue with aspirin and p.r.n. pain meds Coronary artery disease involving autologous vein coronary bypass graft with unstable angina pectoris -the patient reports he had his bypass at his home [facility] and [facility]. See above for treatment plan Hypertension-need to monitor this very closely and keep his systolics below 140, continue with amlodipine, carvedilol and losartan. Bipolar disorder- on Seroquel, on Zyprexa as needed Tobacco dependency-nicotine patch has been ordered Electronically Signed by Betty Solitario MD 01/19/2024 8:11 PM [facility] ([facility]) [facility] [place] 01-19-2024 Plan of Care Npo after midnight for possible heart cath in am Problem: Knowledge Deficit Goal: Patient/family/caregiver demonstrates understanding of disease process, treatment plan, medications, and discharge instructions Outcome: Progressing Problem: Anxiety Goal: Anxiety is at manageable level Outcome: Progressing Problem: Pain - Adult Goal: Verbalizes/displays adequate comfort level or baseline comfort level Outcome: Progressing Problem: Hemodynamic Status Goal: Patient's vitals signs are stable Outcome: Progressing Goal: Patient has no life threatening arrhythmias Outcome: Progressing Goal: ND Core Measures Outcome: Progressing Problem: Inadequate Coping Goal: Demonstrates ability to cope effectively Outcome: Progressing Goal: Verbalizes adaptive coping mechanisms Outcome: Progressing Goal: Verbalizes personal strengths Outcome: Progressing Problem: Activity Intolerance/Impaired Mobility Goal: Mobility/activity is maintained at optimum level for patient Outcome: Progressing Problem: Nutrition Goal: Nutritional status is improving Outcome: Progressing Problem: ND Discharge Planning Goal: Discharge to home or other facility with appropriate resources Outcome: Progressing Goal: ND Discharge Instructions Outcome: Progressing Problem: Safety Goal: Patient states he/she will alert staff if feeling upset or agitated Outcome: Progressing Goal: Patient will remain in behavioral control and verbalize feelings of anger/agitation appropriately as evidenced by the absence of verbal and physical threats or acts toward others. Outcome: Progressing Goal: Patient will remain free from restraints Outcome: Progressing Problem: Inappropriate behavior Goal: Patient's noted defiance/aggression is being addressed with Attending or Primary Team, to include possible medication change Outcome: Progressing Goal: Patient will identify and verbalize common triggers of his/her anger Outcome: Progressing Goal: Patient will identify and verbalize preferred de-escalation methods such as talking, watching TV, listening to music, writing, and/or medication management Outcome: Progressing Goal: Patient and/or visitor's behavior improving as evidenced by therapeutic listening, verbal de-escalation strategies, and medication management Outcome: Progressing Problem: Participation in plan of care Goal: Patient will participate in plan of care and express preferences, goals, and differences of opinion appropriately Outcome: Progressing Goal: Patient will verbalize expectations of hospital and staff during inpatient stay and express perceptions of unmet expectations appropriately as needed Outcome: Progressing Goal: Patient will exhibit increased participation in plan of care Outcome: Progressing Goal: Patient able to abide by facility rules and follow treatment plan Outcome: Progressing Goal: Patient states willingness to participate with therapy/ADLs Outcome: Progressing Problem: Knowledge deficits Goal: Patient and/or visitor voiced his/her understanding of facility rules and policies Outcome: Progressing Goal: Patient verbalized understanding of hospital restraint philosophy, behaviors warranting the use of restraints, and staff interventions used to reduce the need for restraints Outcome: Progressing Goal: Patient/family/caregiver demonstrates understanding of disease process, disruptive behavior treatment plan, medications, and utilization of de-escalation techniques Outcome: Progressing Problem: Potential for Falls Goal: Patient will remain free of falls Outcome: Progressing [facility] ([facility]) [facility] [place] 01-19-2024 Plan of Care Npo after midnight for possible heart cath in am Right groin c/d/I and soft without bleeding or hematoma. Walking to bathroom and voiding without difficulty Hx PTSD for killing people, bipolar, ADHD, depression etc per pt reports. Problem: Knowledge Deficit Goal: Patient/family/caregiver demonstrates understanding of disease process, treatment plan, medications, and discharge instructions Outcome: Progressing Problem: Anxiety Goal: Anxiety is at manageable level Outcome: Progressing Problem: Pain - Adult Goal: Verbalizes/displays adequate comfort level or baseline comfort level Outcome: Progressing Problem: Hemodynamic Status Goal: Patient's vitals signs are stable Outcome: Progressing Goal: Patient has no life threatening arrhythmias Outcome: Progressing Goal: ND Core Measures Outcome: Progressing Problem: Inadequate Coping Goal: Demonstrates ability to cope effectively Outcome: Progressing Goal: Verbalizes adaptive coping mechanisms Outcome: Progressing Goal: Verbalizes personal strengths Outcome: Progressing Problem: Activity Intolerance/Impaired Mobility Goal: Mobility/activity is maintained at optimum level for patient Outcome: Progressing Problem: Nutrition Goal: Nutritional status is improving Outcome: Progressing Problem: ND Discharge Planning Goal: Discharge to home or other facility with appropriate resources Outcome: Progressing Goal: ND Discharge Instructions Outcome: Progressing Problem: Safety Goal: Patient states he/she will alert staff if feeling upset or agitated Outcome: Progressing Goal: Patient will remain in behavioral control and verbalize feelings of anger/agitation appropriately as evidenced by the absence of verbal and physical threats or acts toward others. Outcome: Progressing Goal: Patient will remain free from restraints Outcome: Progressing Problem: Inappropriate behavior Goal: Patient's noted defiance/aggression is being addressed with Attending or Primary Team, to include possible medication change Outcome: Progressing Goal: Patient will identify and verbalize common triggers of his/her anger Outcome: Progressing Goal: Patient will identify and verbalize preferred de-escalation methods such as talking, watching TV, listening to music, writing, and/or medication management Outcome: Progressing Goal: Patient and/or visitor's behavior improving as evidenced by therapeutic listening, verbal de-escalation strategies, and medication management Outcome: Progressing Problem: Participation in plan of care Goal: Patient will participate in plan of care and express preferences, goals, and differences of opinion appropriately Outcome: Progressing Goal: Patient will verbalize expectations of hospital and staff during inpatient stay and express perceptions of unmet expectations appropriately as needed Outcome: Progressing Goal: Patient will exhibit increased participation in plan of care Outcome: Progressing Goal: Patient able to abide by facility rules and follow treatment plan Outcome: Progressing Goal: Patient states willingness to participate with therapy/ADLs Outcome: Progressing Problem: Knowledge deficits Goal: Patient and/or visitor voiced his/her understanding of facility rules and policies Outcome: Progressing Goal: Patient verbalized understanding of hospital restraint philosophy, behaviors warranting the use of restraints, and staff interventions used to reduce the need for restraints Outcome: Progressing Goal: Patient/family/caregiver demonstrates understanding of disease process, disruptive behavior treatment plan, medications, and utilization of de-escalation techniques Outcome: Progressing Problem: Potential for Falls Goal: Patient will remain free of falls Outcome: Progressing [facility] ([facility]) [facility] [place] 01-19-2024 Progress Notes The [address] [address] Cardiology Hospital Progress Note Patient:Catherine Garnett :1970 Admitted:01/16/2024 Today's date: 01/19/24 Subjective Data: cont to have chest pain Social history: Tobacco use: reports that he has been smoking cigarettes. He has never used smokeless tobacco. Past Medical History: Diagnosis Date Asthma Congestive heart failure (HCC) Coronary arteriosclerosis Essential hypertension Hyperlipidemia Past Surgical History: Procedure Laterality Date CARDIAC RHYTHM INTERVENTION History reviewed. No pertinent family history. LAB RESULTS: Lab Results Component Value Date NA 138 01/16/2024 K 4.2 01/16/2024 CL 107 01/16/2024 CO2 28 01/16/2024 BUN 14 01/16/2024 CREATININE 1.08 01/16/2024 CALCIUM 9.4 01/16/2024 GLUCOSE 102 01/16/2024 Lab Results Component Value Date WBC 9.54 01/18/2024 HGB 15.1 01/18/2024 HCT 45.4 01/18/2024 PLT 237 01/18/2024 No results found for: TSH Lab Results Component Value Date PT 11.6 01/18/2024 INR 1.0 01/18/2024 No results found for: TROPONINI No results found for: PROBNP Imaging Results: No results found. EKG/Tele Results: SB 50s Cardiology testing: CAD s/p CABG x4 2022 ICMP with normalized EF HTN HLD Bipolar disorder Angina 11/14/2023 Stress test Normal pharmacologic MPI. No ischemia or infarct. Normal left ventricular systolic function with LVEF 61%. Nondiagnostic pharmacologic EKG portion. Low risk for ischemic event in one year. Recommend continued medical management and aggressive risk factor reduction. Further evaluation should be based on symptom course. 11/10/2023 Echo 1. Left ventricular ejection fraction, by visual estimation, is 60 to 65%. 2. LV Diastology is indeterminate. 3. Mild concentric left ventricular hypertrophy. 4. Normal right ventricular size and systolic function. 5. Borderline dilated left atrium. 6. Mildly dilated right atrium. 7. Mild aortic valve sclerosis without stenosis. 8. Unable to adequately obtain RVSP. 9. Dilated inferior vena cava. 10. Trivial pericardial effusion. 04/11/22 Cardiac Cath Findings: 1. Right dominant coronary anatomy with a type 3 LAD. 2. 95% proximal LAD in stent restenosis. 60% mid LAD stenosis distal to D1. 3. 80% distal LCx stenosis 4. 60% distal RCA stenosis proximal to PDA 5. LVEDP = 30 mmHg. Vital Signs: BP 133/81 (BP Location: Left arm, Patient Position: Sitting) Pulse 60 Temp 36.4 \XC2B0\C (97.5 \XC2B0\F) (Oral) Resp 17 Ht 1.727 m (5' 8) Wt 115 kg (253 lb 12 oz) SpO2 100% BMI 38.58 kg/m\XC2B2\ Physical Exam: PHYSICAL EXAM: General appearance - NAD comfortable HEENT - Neck Supple, no JVD Chest -REY+ CTA Heart - S1s2+ RRR Abdomen -Soft NT ND Neurological - No focal deficits Extremities -No cyanosis, clubbing, edema Skin - Intact PRIMARY DIAGNOSIS Unstable angina (HCC) Assessment: 53 yo male admitted with chest pain, trop has been negative 3 times. Assessment /Plan: # Chest pain for further evaluation: # Hx of CAD S/P CABG Surgery in [place], [place]. - We titrated his antianginal medications yesterday, but he cont to experience severe chest pain with exertion. Hence we proceeded with a stress test which showed large area of ischemia. [facility] today showed patent graft with proximal LAD lesion that compromises the diagonal branch and could explain his anterior wall ischemia. Will plan for stage PCI tomorrow. - Cont heparin drip. - Cont amlodipine 10 mg daily, aspirin 81 mg daily, - Cont imdur to 120 mg and Cont ranolazine 500 mg daily. - Cont Coreg to 25 mg bid. # Mixed hyperlipidemia - Cont zetia - Cont Lipitor 40 - LDL is 142 mg/dL # Ischemic cardiomyopathy with recovered EF # HTN urgency: - Cont amlodipine 10 mg daily, aldactone 25 mg daily. - Cont imdur to 120 mg and Coreg to 25 mg bid. - Cont losartan 25 mg daily. # Tobacco use Off note: Discussed with interventional team and per further looking into his outside records it showed that he has only three bypasses, the above-mentioned grafts. Also noted in the records is recurrent mentions of noncompliance and substance abuse. He has had frequent health care encounters for chest pain at multiple different hospitals in different locations. Plan discussed with referring physician and nursing team. Kai Mckoy MD [facility] ([facility]) [facility] [place] 01-19-2024 Case Management Note UNIT BASED INTERDISCIPLINARY ROUNDS NOTE [id number] - CATHERINE GARNETT 1970 (53 y.o.) - male ADMIT DATE: 01/16/2024 ATTENDING: Betty Solitario MD LOS: 1 days Current CLS SCORE: TX/PROC HX Day of Surgery CONSULTS: IP CONSULT TO CARDIOLOGY DX: Unstable angina (HCC) ALLERGIES: No Known Allergies CODE: Full Code ADMIT WT: Weight: 116 kg (255 lb) LAST WT: 115 kg (253 lb 12 oz) PENDING LABS PENDING TESTS Heart cath today, labs ordered as needed ACTIVITY/DVT: Mobility Activity: Ambulate in room Activity Level of Assistance: Independent Assistive Device: None Activity Response: Tolerated well Repositioned: Turns self Positioning Frequency: Able to turn self Weight Bearing Status: Total Head of Bed Elevated : Self regulated Heels / Feet: Foot of bed elevated Range of Motion: Active, All extremities Anti-Embolism Device Ordered: Bilateral, SCD, below knee Anti-Embolism Intervention: Off Reason no Mechanical VTE Applied: Patient Refused Total Fall Risk Score: 6 *Scoring Info: Less than 6 = Low fall risk score; 6-13 = Moderate fall risk score; Greater than 13 = High fall risk score ISOLATION: No active isolations INFECTION: No active infections PATIENT OVERVIEW Neurological: Cardiac: Cardiac Rhythm: Normal sinus rhythm EDEMA Resp: GI: : Urine Color: Yellow/straw Urine Appearance: Clear Urine Odor: No odor Intake/Output: 01/17 0701 - 01/18 0700 In: 1072 [P.O.:1072] Out: - Maintenance Dialysis History Patient has no recorded history of maintenance dialysis. INTEGUMENTARY: WOUNDS/INCISIONS/PRESSURE INJURIES: Fawad Scale Score: 23 CONTINUOUS INFUSIONS: [START ON 01/20/2024] sodium chloride 0.9%, 125 mL/hr VASCULAR ACCESS: Peripheral IV 01/18/24 Anterior;Right Forearm (Active) Number of days: 1 CURRENT MEDS: Scheduled amLODIPine, 10 mg, oral, Daily aspirin, 81 mg, oral, Daily atorvastatin, 40 mg, oral, Daily carvediloL, 25 mg, oral, BID AC clopidogreL, 600 mg, oral, Once And [START ON 01/20/2024] clopidogreL, 75 mg, oral, Daily ezetimibe, 10 mg, oral, HS isosorbide mononitrate, 120 mg, oral, Daily losartan, 25 mg, oral, Daily nicotine, 1 patch, transdermal, Daily pantoprazole, 40 mg, oral, q AM AC polyethylene glycol, 17 g, oral, Daily QUEtiapine, 50 mg, oral, HS ranolazine, 500 mg, oral, BID sennosides-docusate sodium, 1 tablet, oral, HS sodium chloride 0.9 % (flush), 10 mL, intravenous, q12h CAROLANN spironolactone, 25 mg, oral, Daily RX/PHARMACY Have you had an influenza vaccine this season?: No SOCIAL: Decision Maker: Advance Dir: Not Received Payor: COMMERCIAL GENERIC / Plan: COMMERCIAL OTHER / Product Type: *No Product type* / Anticipated needs @ TX/DC:No new recommendations ANCILLARY THERAPIES: PT/OT/SLT RECS: NA RESTRAINTS: SITTER: N/A N/A BERNADETTE Today Tomorrow TODAY'S PLAN: Possible discharge later today pending results of heart cath, awaiting results Identified Care Management Needs: Please notify Care Management if the patient's condition changes and Care Management support is needed. ATTENDEES: Case Management, CM Director/Lead, Nurse Import And Export Clerk, Provider, PT, and RN COMMENTS: Electronically signed by ANNAMARIE Ochoa RN 01/19/24 12:44 PM [facility] ([facility]) [facility] [place] 01-19-2024 Nursing Note Returned to room from bottle label inspector [facility] ([facility]) [facility] [place] 01-19-2024 Brief Op Note Left heart cath (L) PROCEDURE NOTE Procedure: Left heart cath CPT(R) Code: 08836 - [place] CATH PLMT L HRT & ARTS W/NJX & ANGIO IMG S&I Cardiac catheterization performed via right femoral artery without difficulty or complication. Findings: LMT: Mild disease. LAD: 90% proximal, then subtotally occluded mid immediately after the origin of the 1st diagonal branch. Beyond the point of subtotal occlusion the vessel fills via the EPSTEIN graft and shows mild irregularities. The 1st diagonal branch is a large branch with multiple side branches. CX: Codominant. Diffuse distal disease. RCA: Codominant. 100%. EPSTEIN to LAD: Patent. SVG to PDA: Patent. SVG to distal OM: Patent. Left ventricle: Anteroapical hypokinesis with moderate left ventricular systolic dysfunction. LVEF 45%. Recommend PCI of proximal LAD, as the large 1st diagonal branches compromised by the proximal and mid lesions in the LAD proper. Not performed today; after the diagnostic study was completed, after ventriculography, the patient began to complain of shortness of breath. Oxygen saturations remained above 90%. Suspect development of some congestive heart failure with contrast administration, therefore procedure terminated. We will diurese and plan on staged PCI of proximal LAD. Full report to follow. [facility] ([facility]) [facility] [place] 01-19-2024 Brief Op Note Left heart cath (L) PROCEDURE NOTE Procedure: Left heart cath CPT(R) Code: 89732 - [place] CATH PLMT L HRT & ARTS W/NJX & ANGIO IMG S&I Cardiac catheterization performed via right femoral artery without difficulty or complication. Findings: LMT: Mild disease. LAD: 90% proximal, then subtotally occluded mid immediately after the origin of the 1st diagonal branch. Beyond the point of subtotal occlusion the vessel fills via the EPSTEIN graft and shows mild irregularities. The 1st diagonal branch is a large branch with multiple side branches. CX: Codominant. Diffuse distal disease. RCA: Codominant. 100%. EPSTEIN to LAD: Patent. SVG to PDA: Patent. SVG to distal OM: Patent. Left ventricle: Anteroapical hypokinesis with moderate left ventricular systolic dysfunction. LVEF 45%. Recommend PCI of proximal LAD, as the large 1st diagonal branches compromised by the proximal and mid lesions in the LAD proper. Not performed today; after the diagnostic study was completed, after ventriculography, the patient began to complain of shortness of breath. Oxygen saturations remained above 90%. Suspect development of some congestive heart failure with contrast administration, therefore procedure terminated. We will diurese and plan on staged PCI of proximal LAD. NOTE: I reviewed his old records rather extensively via Care everywhere. The patient reports 4 vessel bypass, to caregivers here and to multiple caregivers in other facilities. However the reports from [facility] in [facility] quite clearly describe only three bypasses, the above-mentioned grafts. Also noted in the records is recurrent mentions of noncompliance and substance abuse. He has had frequent health care encounters for chest pain at multiple different hospitals in different locations. Full report to follow. [facility] ([facility]) [facility] [place] 01-19-2024 Nursing Note 01/19/24 1039 Patient Progress Rounds Patient expects to be discharged to: Home Stable and completed treatment? N Today we still await: Clinical stability;Diagnostic work-up;Reinforcing Steel Erector recommendations;Procedure Procedures Cardiology/[facility] Cardiology Discharge Delays Diagnostic Diagnostic Treatment(s) needed [facility] ([facility]) [facility] [place] 01-19-2024 Nursing Note 01/19/24 1009 Patient Progress Rounds Patient expects to be discharged to: Home Stable and completed treatment? N Today we still await: Clinical stability;Diagnostic work-up;Procedure;Reinforcing Steel Erector recommendations Procedures Cardiology/[facility] Cardiology Diagnostic Treatment(s) needed [facility] ([facility] 01-19-2024 Pre-Procedure Note Cardiology Pre-Procedure Note Today's Date: 01/19/24 Medical History/Indications for Procedure: See H&P Changes in patient condition since H&P completed: NONE Pre-Procedure diagnosis: CAD, CP, ABN NST Mallampati: 3 ASA Status: ASA III (A patient with severe systemic disease) Consent: I have reviewed the procedure risks, benefits, options and use of conscious sedation with the patient and/or family and a good understanding has been verbalized. The patient and/or family agrees to proceed. Written consent has been obtained. Physician Electronic Signature: Chalo Garcia MD 01/19/2024, 8:53 AM [facility] ([facility]) [facility] [place] 01-19-2024 Plan of Care BP 116/69 Pulse 68 Temp 36.4 \XC2B0\C (97.6 \XC2B0\F) (Oral) Resp 18 Ht 1.727 m (5' 8) Wt 115 kg (253 lb 12 oz) SpO2 98% BMI 38.58 kg/m\XC2B2\ Problem: Knowledge Deficit Goal: Patient/family/caregiver demonstrates understanding of disease process, treatment plan, medications, and discharge instructions 01/19/2024316 by Kosta Bradford RN Outcome: Progressing 01/19/2024309 by Kosta Bradford RN Outcome: Progressing Problem: Anxiety Goal: Anxiety is at manageable level Outcome: Progressing Problem: Pain - Adult Goal: Verbalizes/displays adequate comfort level or baseline comfort level 01/19/2024316 by Kosta Bradford RN Outcome: Progressing 01/19/2024309 by Kosta Bradford RN Outcome: Progressing Problem: Hemodynamic Status Goal: Patient's vitals signs are stable 01/19/2024316 by Kosta Bradford RN Outcome: Progressing 01/19/2024309 by Kosta Bradford RN Outcome: Progressing Goal: Patient has no life threatening arrhythmias 01/19/2024316 by Kosta Bradford RN Outcome: Progressing 01/19/2024309 by Kosta Bradford RN Outcome: Progressing Goal: ND Core Measures 01/19/2024316 by Kosta Bradford RN Outcome: Progressing 01/19/2024309 by Kosta Bradford RN Outcome: Progressing [facility] ([facility]) [facility] [place] 01-18-2024 Progress Notes Internal Medicine Progress Note Patient: Catherine Garnett : 1970 Admitted: 01/16/2024 PCP: No primary care provider on file. CC: chest pain Subjective: Patient reports intermittent chest pain is continuing is requesting narcotics for this pain, there was no shortness a breath, dyspnea extremity edema, Physical Exam: Vitals: 01/18/24 0242 01/18/24 0845 01/18/24 1312 01/18/24 1706 BP: (!) 156/76 (!) 141/90 116/69 BP Location: Right arm Left arm Patient Position: Sitting Sitting Pulse: 52 97 68 Resp: 18 18 Temp: 36.4 \XC2B0\C (97.6 \XC2B0\F) 36.4 \XC2B0\C (97.6 \XC2B0\F) TempSrc: Oral Oral SpO2: 97% 98% Weight: 115 kg (253 lb 12 oz) Height: Intake/Output Summary (Last 24 hours) at 01/18/2024 1811 Last data filed at 01/18/2024 1706 Gross per 24 hour Intake 1072 ml Output -- Net 1072 ml Physical Exam : General: alert, well appearing , no acute distress Heart: Regular rate and rhythm without murmur, pulses present in extremities Lungs: Clear bilaterally, on RA Abdomen: obese, Soft, non tender, no rebound or guarding, NABS Extremities: no edema, cyanosis or clubbing Neuro- moving all 4 extremities, no focal deficits Psych: Normal mood and affect Review of Relevant Data: I have reviewed the following items and time marty (where applicable) has been applied. LABS: Results from last 7 days Lab Units 01/18/24 1614 WBC AUTO K/uL 9.54 HEMOGLOBIN g/dL 15.1 HEMATOCRIT % 45.4 MCV fL 84 PLATELETS AUTO K/uL 237 Results from last 7 days Lab Units 01/16/24 1457 GLUCOSE mg/dL 102 CALCIUM mg/dL 9.4 SODIUM mmol/L 138 POTASSIUM mmol/L 4.2 CO2 mmol/L 28 CHLORIDE mmol/L 107 BUN mg/dL 14 CREATININE mg/dL 1.08 Stress Test with Myocardial Perfusion Result Date: 01/18/2024 History/Risk Factors Hypertension: Yes Myocardial Infarction (ND): Yes Tobacco Use: Current - Every Day History/Risk Factors Chest pain. Post ND X 2. +Fam Hx. Shortness of breath. Prior Interventions CABG: Yes Report Signatures MPI SPECT Finalized by Kai Mckoy MD on 01/18/2024 01:37 PM Stress Finalized by Kai Mckoy MD on 01/18/2024 01:37 PM Patient Info Name: Catherine Garnett Age: 53 years : 1970 Gender: Male Ht: 68 in Wt: 253 lbs BSA: 2.40 m2 HR: 56 bpm BP: 135 / 72 mmHg Exam Date: 01/18/2024 10:48 AM Patient Status: O Admit Date: 01/16/2024 Site: [facility] Any Known Allergies: See in [facility] Exam Type: STRESS TEST WITH MYOCARDIAL PERFUSION Study Info Indications - Chest pain, nonspecific Staff Ordering Physician:Kai Mckoy MD Attending Physician: Betty Solitario Lubrication Equipment Servicer: Santana Cartwright [facility] Nurse: Alix Zapata Summary 1. The stress test is abnormal with [...] Scan indicates high risk for cardiac events. Stress ECG Details Protocol: Lexiscan Rest HR: 56 bpm Peak HR: 70 bpm Rest Sys BP: 135 mmHg Peak Sys BP: 110 mmHg Max Pred HR: 165 bpm % Max Pred HR: 42 % Target HR: 140 bpm Max RPP: 7,700 bpm*mmHg Rest Hankins BP: 72 mmHg Peak Hankins BP: 64 mmHg Total Dose: 0.4 mg Stress ECGChest pain. Intense chest pain. Headache, pain around eyes. Headache, jaw pain, neck pain. Left arm pain, pain around eyes. Left arm pain/numbness. Burning in chest headache. headache. Target HR Summary Not applicable due to Lexiscan stress protocol. Termination Reason Protocol Completed. Cardiac Symptoms Chest pain. Shortness of breath. Radiopharmaceutical: Tc-99m Administration Site: IV - left antecubital Administered By: Thomas VERDINMT Camera Used: clipsynca Radiopharmaceutical: Tc-99m Administration Site: IV - right forearm Administered By: Thomas VERDINMT Camera Used: clipsynca Image Protocol Protocol: Rest/Stress 1 Day Rest Radiopharmaceutical Dose: -1.0 mCi Imaging Date Time: 01/18/2024 11:04 AM Stress Radiopharmaceutical Dose: -1.0 mCi Imaging Date Time: 01/18/2024 11:46 AM Injection to Imaging Time: 30 min Injection to Imaging Time: 20 min SPECT Results Perfusion Findings A large sized, mild to severe perfusion defect in the anterior, anteroseptal, septal, inferior, lateral, and apex bronson is partially reversible. Using attenuation correction improved but not completely back to normal. So this suggestive of ischemia. Summed Difference Score: 9 Summed Stress Score: 19 Summed Rest Score: 10 Perfusion Quantitative Results Stress Extent Global Stress Extent 31 % Rest Extent Global Rest Extent: 29 % Ischemia Extent Global Ischemia Extent: 22 % Functional Results Name Value Normal Stress Stress LV Ejection Fraction 67 % 55-70 Stress LV End Systolic Volume 49 ml Nuclear Stress Cardiac Output 6.2 l/min Stress LV End Diastolic Volume 148 ml Transient Ischemic Dilatation 1.09 Nuclear Stress Myocardial Mass 168 g Functional Results Name Value Normal Rest Resting LV Ejection Fraction 51 % 55-70 Resting LV End Systolic Volume 63 ml Nuclear Rest Myocardial Mass 153 g Resting LV End Diastolic Volume 129 ml Nuclear Rest Cardiac Output 3.7 l/min Functional Findings The septal wall, mid inferoseptal, and mid anteroseptal are hypokinetic with stress. The basal anteroseptal is akinetic with stress. All other bronson appear normal with stress. The apex, inferoseptal wall, and basal anteroseptal are hypokinetic at rest. Theseptal wall, and mid anteroseptal are akinetic at rest. All other bronson appear normal at rest. Gated SPECT imaging reveals normal myocardial wall thickening. Resting left ventricular ejection fraction is normal, 51 %. Post stress left ventricular ejection fraction is normal, 67 %. Transthoracic Echo (TTE) Limited Result Date: 01/18/2024 Patient Info Name: Catherine Garnett Age: 53 years : 1970 Gender: Male Ht: 68 in Wt: 253 lbs BSA: 2.40 m2 Exam Date: 01/18/2024 10:03 AM Patient Status: O Site: [facility] Exam Type: TRANSTHORACIC ECHO (TTE) LIMITED Study Info Indications - CP, Chest Pressure, [place] [address]: Limited 2D Echo. Staff Ordering Physician: Kai Mckoy MD Co Founder And Director: Brenda Adame [facility] Contrast/Agitated Saline Contrast/Ag. Saline: Definity Amount: 2.00 ml Administered By: Brenda Adame [facility] Summary 1. Left ventricular systolic function is normal with an ejection fraction by Biplane Method of Discs of 61 %. 2. Normal wall motion. Left Ventricle Left ventricular systolic function is normal with an ejection fraction by Biplane Method of Discs of 61 %. Normal wall motion. Pericardium/Pleural Pericardium is normal in appearance with no evidence for significant pericardial effusion. Ventricles Name Value Name Value LV Dimensions 2D/MM IVS Diastolic Thickness (2D) 1.3 cm LV Mass (2D Cubed) 261.83 gr LVID Diastole (2D) 5.0 cm LV Mass Index (2D Cubed) 109 g/m2 LVIW Diastolic Thickness (2D) 1.3 cm Relative Wall Thickness (2D) 0.52 LVID Systole (2D) 3.3 cm LV Fractional Shortening/Ejection Fraction 2D/MM LV Fractional Shortening (2D) 34 % LV Diastolic Volume Index (BP MOD) 60 ml/m2 LV EF (2D Teichholz) 63 % LV Systolic Volume (BP MOD) 55 ml LV Diastolic Volume (4C MOD) 153 ml LV Systolic Volume Index (BP MOD) 23 ml/m2 LV EF (4C MOD) 65 % LV EF (BP MOD) 61 % LV Diastolic Volume (2C MOD) 129 ml LV Diastolic Length (4C) 8.6 cm LV EF (2C MOD) 56 % LV Systolic Length (4C) 7.2 cm LV Diastolic Volume (BP MOD) 143 ml LV Stroke Volume (4C MOD) 99 ml Report Signatures Finalized by Kai Mckoy MD on 01/18/2024 12:03 PM MEDICATIONS: Scheduled: amLODIPine, 10 mg, oral, Daily aspirin, 81 mg, oral, Daily atorvastatin, 40 mg, oral, Daily carvediloL, 25 mg, oral, BID AC ezetimibe, 10 mg, oral, HS isosorbide mononitrate, 120 mg, oral, Daily [START ON 01/19/2024] losartan, 25 mg, oral, Daily nicotine, 1 patch, transdermal, Daily pantoprazole, 40 mg, oral, q AM AC polyethylene glycol, 17 g, oral, Daily QUEtiapine, 50 mg, oral, HS ranolazine, 500 mg, oral, BID sennosides-docusate sodium, 1 tablet, oral, HS sodium chloride 0.9 % (flush), 10 mL, intravenous, q12h CAROLANN spironolactone, 25 mg, oral, Daily PRN: albuterol, 2.5 mg alum-mag hydroxide-simeth, 15 mL calcium carbonate, 500 mg heparin (porcine), 5,000 Units HYDROcodone-acetaminophen, 1 tablet ibuprofen, 600 mg LORazepam, 0.5 mg morphine, 2 mg naloxone, 0.1 mg nitroglycerin, 0.4 mg ondansetron, 4 mg zolpidem, 5 mg Infusions: heparin (porcine) in 5 % dex infusion, 0-1,900 Units/hr, Last Rate: 1,000 Units/hr (01/18/24 1703) Assessment/Plan: Principal Problem: Unstable angina (HCC) Active Problems: Coronary artery disease involving autologous vein coronary bypass graft with unstable angina pectoris (HCC) Primary hypertension Class 1 obesity due to excess calories with body mass index (BMI) of 32.0 to 32.9 in adult Bipolar 1 disorder (HCC) Tobacco dependence Unstable angina-patient remains on telemetry, discuss treatment plan with Cardiology. The patient did have an echocardiogram which was reviewed myself showing a normal ejection fraction of 65 percent. The patient also had when a large area of perfusion defect. Our treatment and plan now be altered to include a cardiac catheterization tomorrow in the morning. We will continue with the heparin drip, nitroglycerin as needed for pain as well as long-acting nitroglycerin, Imdur. Continue with aspirin and p.r.n. pain meds Coronary artery disease involving autologous vein coronary bypass graft with unstable angina pectoris -the patient reports he had his bypass at his [facility] and [facility]. See above for treatment plan Hypertension-need to monitor this very closely and keep his systolics below 140, continue with amlodipine and carvedilol as well as losartan. Bipolar disorder-it appears the patient is only on Seroquel for symptom management. We will place Zyprexa as needed Tobacco dependency-nicotine patch has been ordered Electronically Signed by Betty Solitario MD 01/18/2024 6:11 PM [facility] ([facility]) [facility] [place] 01-18-2024 Plan of Care Pt had abnormal stress test. NPO at midnight for bottle label inspector on Wednesday. Hep gtt started. Problem: Knowledge Deficit Goal: Patient/family/caregiver demonstrates understanding of disease process, treatment plan, medications, and discharge instructions Outcome: Progressing Problem: Anxiety Goal: Anxiety is at manageable level Outcome: Progressing Problem: Pain - Adult Goal: Verbalizes/displays adequate comfort level or baseline comfort level Outcome: Progressing Problem: Hemodynamic Status Goal: Patient's vitals signs are stable Outcome: Progressing Goal: Patient has no life threatening arrhythmias Outcome: Progressing Goal: ND Core Measures Outcome: Progressing Problem: Inadequate Coping Goal: Demonstrates ability to cope effectively Outcome: Progressing Goal: Verbalizes adaptive coping mechanisms Outcome: Progressing Goal: Verbalizes personal strengths Outcome: Progressing Problem: Activity Intolerance/Impaired Mobility Goal: Mobility/activity is maintained at optimum level for patient Outcome: Progressing Problem: Nutrition Goal: Nutritional status is improving Outcome: Progressing Problem: ND Discharge Planning Goal: Discharge to home or other facility with appropriate resources Outcome: Progressing Goal: ND Discharge Instructions Outcome: Progressing Problem: Safety Goal: Patient states he/she will alert staff if feeling upset or agitated Outcome: Progressing Goal: Patient will remain in behavioral control and verbalize feelings of anger/agitation appropriately as evidenced by the absence of verbal and physical threats or acts toward others. Outcome: Progressing Goal: Patient will remain free from restraints Outcome: Progressing Problem: Inappropriate behavior Goal: Patient's noted defiance/aggression is being addressed with Attending or Primary Team, to include possible medication change Outcome: Progressing Goal: Patient will identify and verbalize common triggers of his/her anger Outcome: Progressing Goal: Patient will identify and verbalize preferred de-escalation methods such as talking, watching TV, listening to music, writing, and/or medication management Outcome: Progressing Goal: Patient and/or visitor's behavior improving as evidenced by therapeutic listening, verbal de-escalation strategies, and medication management Outcome: Progressing Problem: Participation in plan of care Goal: Patient will participate in plan of care and express preferences, goals, and differences of opinion appropriately Outcome: Progressing Goal: Patient will verbalize expectations of hospital and staff during inpatient stay and express perceptions of unmet expectations appropriately as needed Outcome: Progressing Goal: Patient will exhibit increased participation in plan of care Outcome: Progressing Goal: Patient able to abide by facility rules and follow treatment plan Outcome: Progressing Goal: Patient states willingness to participate with therapy/ADLs Outcome: Progressing Problem: Knowledge deficits Goal: Patient and/or visitor voiced his/her understanding of facility rules and policies Outcome: Progressing Goal: Patient verbalized understanding of hospital restraint philosophy, behaviors warranting the use of restraints, and staff interventions used to reduce the need for restraints Outcome: Progressing Goal: Patient/family/caregiver demonstrates understanding of disease process, disruptive behavior treatment plan, medications, and utilization of de-escalation techniques Outcome: Progressing [facility] ([facility]) [facility] [place] 01-18-2024 Case Management Note UNIT BASED INTERDISCIPLINARY ROUNDS NOTE [id number] - CATHERINE GARNETT 1970 (53 y.o.) - male ADMIT DATE: 01/16/2024 ATTENDING: Betty Solitario MD LOS: 0 days Current CLS SCORE: TX/PROC HX CONSULTS: IP CONSULT TO CARDIOLOGY DX: Unstable angina (HCC) ALLERGIES: No Known Allergies CODE: Full Code ADMIT WT: Weight: 116 kg (255 lb) LAST WT: 115 kg (253 lb 12 oz) PENDING LABS PENDING TESTS As needed ACTIVITY/DVT: Mobility Activity: Patient in bed Activity Level of Assistance: Independent Assistive Device: None Repositioned: Turns self Positioning Frequency: Able to turn self Weight Bearing Status: Total Head of Bed Elevated : Self regulated Range of Motion: Active, All extremities Anti-Embolism Device Ordered: None Total Fall Risk Score: 4 *Scoring Info: Less than 6 = Low fall risk score; 6-13 = Moderate fall risk score; Greater than 13 = High fall risk score ISOLATION: No active isolations INFECTION: No active infections PATIENT OVERVIEW Neurological: Cardiac: Cardiac Rhythm: Normal sinus rhythm EDEMA Resp: GI: : Urine Color: Yellow/straw Urine Appearance: Clear Urine Odor: No odor Intake/Output: 01/16 0701 - 01/17 0700 In: 240 [P.O.:240] Out: - Maintenance Dialysis History Patient has no recorded history of maintenance dialysis. INTEGUMENTARY: WOUNDS/INCISIONS/PRESSURE INJURIES: Fawad Scale Score: 22 CONTINUOUS INFUSIONS: heparin (porcine) in 5 % dex infusion, 0-1,900 Units/hr VASCULAR ACCESS: Peripheral IV 01/16/24 Anterior;Left;Superior Arm (Active) Number of days: 2 CURRENT MEDS: Scheduled amLODIPine, 10 mg, oral, Daily aspirin, 81 mg, oral, Daily atorvastatin, 40 mg, oral, Daily carvediloL, 25 mg, oral, BID AC ezetimibe, 10 mg, oral, HS heparin (porcine), 4,000 Units, intravenous, Once isosorbide mononitrate, 120 mg, oral, Daily [START ON 01/19/2024] losartan, 25 mg, oral, Daily nicotine, 1 patch, transdermal, Daily pantoprazole, 40 mg, oral, q AM AC polyethylene glycol, 17 g, oral, Daily QUEtiapine, 50 mg, oral, HS ranolazine, 500 mg, oral, BID sennosides-docusate sodium, 1 tablet, oral, HS sodium chloride 0.9 % (flush), 10 mL, intravenous, q12h CAROLANN spironolactone, 25 mg, oral, Daily RX/PHARMACY Have you had an influenza vaccine this season?: No SOCIAL: Decision Maker: Advance Dir: Not Received Payor: COMMERCIAL GENERIC / Plan: COMMERCIAL OTHER / Product Type: *No Product type* / Anticipated needs @ TX/DC:Other Home on own ANCILLARY THERAPIES: PT/OT/SLT RECS: NA RESTRAINTS: SITTER: N/A N/A BERNADETTE Today TODAY'S PLAN: Continue current care plan; pt to have ECHO and stress test Identified Care Management Needs: No Care Management needs at this time. ATTENDEES: Case Management, CM Director/Lead, Nurse Import And Export Clerk, Provider, RN, and Operations Analyst COMMENTS: Pt to have ECHO and stress test today; if no concerns can dc on his own. 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 No needs reported. Electronically signed by Maude Claire LMSW 01/18/24 2:47 PM [facility] ([facility]) [facility] [place] 01-18-2024 Case Management Note 01/18/24 1011 Patient Progress Rounds Patient expects to be discharged to: Home Stable and completed treatment? N Today we still await: Reinforcing Steel Erector recommendations [facility] Ghazala Zarco RN 01/18/2024 [facility] ([facility]) [facility] [place] 01-18-2024 Progress Notes The [address] [address] Cardiology Hospital Progress Note Patient:Catherine Garnett :1970 Admitted:01/16/2024 Today's date: 01/18/24 Subjective Data: Patient still feels like he is having chest pain, constant now for greater than 24hrs. He would like to stay for stress test. Social history: Tobacco use: reports that he has been smoking cigarettes. He has never used smokeless tobacco. Past Medical History: Diagnosis Date Asthma Congestive heart failure (HCC) Coronary arteriosclerosis Essential hypertension Hyperlipidemia Past Surgical History: Procedure Laterality Date CARDIAC RHYTHM INTERVENTION History reviewed. No pertinent family history. LAB RESULTS: Lab Results Component Value Date NA 138 01/16/2024 K 4.2 01/16/2024 CL 107 01/16/2024 CO2 28 01/16/2024 BUN 14 01/16/2024 CREATININE 1.08 01/16/2024 CALCIUM 9.4 01/16/2024 GLUCOSE 102 01/16/2024 Lab Results Component Value Date WBC 9.77 01/16/2024 HGB 17.1 01/16/2024 HCT 51.6 01/16/2024 PLT 325 01/16/2024 No results found for: TSH No results found for: PT, INR No results found for: TROPONINI No results found for: PROBNP Imaging Results: No results found. EKG/Tele Results: SB 50s Cardiology testing: CAD s/p CABG x4 2022 ICMP with normalized EF HTN HLD Bipolar disorder Angina 11/14/2023 Stress test Normal pharmacologic MPI. No ischemia or infarct. Normal left ventricular systolic function with LVEF 61%. Nondiagnostic pharmacologic EKG portion. Low risk for ischemic event in one year. Recommend continued medical management and aggressive risk factor reduction. Further evaluation should be based on symptom course. 11/10/2023 Echo 1. Left ventricular ejection fraction, by visual estimation, is 60 to 65%. 2. LV Diastology is indeterminate. 3. Mild concentric left ventricular hypertrophy. 4. Normal right ventricular size and systolic function. 5. Borderline dilated left atrium. 6. Mildly dilated right atrium. 7. Mild aortic valve sclerosis without stenosis. 8. Unable to adequately obtain RVSP. 9. Dilated inferior vena cava. 10. Trivial pericardial effusion. 04/11/22 Cardiac Cath Findings: 1. Right dominant coronary anatomy with a type 3 LAD. 2. 95% proximal LAD in stent restenosis. 60% mid LAD stenosis distal to D1. 3. 80% distal LCx stenosis 4. 60% distal RCA stenosis proximal to PDA 5. LVEDP = 30 mmHg. Vital Signs: BP (!) 156/76 (BP Location: Right arm, Patient Position: Sitting) Pulse 52 Temp 36.4 \XC2B0\C (97.6 \XC2B0\F) (Oral) Resp 18 Ht 1.727 m (5' 8) Wt 115 kg (253 lb 12 oz) SpO2 97% BMI 38.58 kg/m\XC2B2\ Physical Exam: GENERAL: Appears in no acute distress PSYCH: Appears alert with appropriate responses NEURO: No new deficits appreciated RESP: Lungs clear to auscultation CV: Heart sounds S1 S2 regular without murmur lower extremities without edema PRIMARY DIAGNOSIS Unstable angina (HCC) Assessment: Chest pain Negative cardiac workup here. Recent [facility] 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 Appears to have this chronic angina. --Repeat TNI this am 16. --Imdur increased yesterday to 60mg --Echo and stress to be done today CAD s/p CABG x4 2022 Surgery in [place], [place]. Patient reports compliance with medications --Continue ASA 81mg daily --Carvedilol increased to 25mg twice daily. ICMP with normalized EF --Echo pending. HTN Blood pressure initially 140-160 on arrival. SBP 130 this am and 100 after 2x nitroglycerin. Carvedilol was increased yesterday. Tolerating with SBP 110-120s today. HLD On Zetia 10mg nightly. No statin therapy? --Atorvastatin added yesterday. Tobacco Abuse Encourage cessation. Plan: Discuss with Dr. Mckoy. Patient to have echocardiogram and stress test today. He was initially disinterested in staying for further testing but has changed his mind. Kristyn Liu NP 01/18/2024, 10:06 AM PHYSICIAN ADDENDUM: Today's Date: 01/18/24 I have seen, interviewed, and examined the patient. Case discussed with JOHANA. I reviewed relevant clinical information. EPIC chart data, reports, and clinical notes reviewed. Agree with data above as outlined by JOHANA. I modified consultation to reflect information from my evaluation to physical examination findings as noted below. Assessment and plan devised, formulated, and documented in conjunction with me. I personally reviewed Cardiac imaging studies. 53 yo male admitted with chest pain, trop has been negative 3 times. PHYSICAL EXAM: General appearance - NAD comfortable HEENT - Neck Supple, no JVD Chest -REY+ CTA Heart - S1s2+ RRR Abdomen -Soft NT ND Neurological - No focal deficits Extremities -No cyanosis, clubbing, edema Skin - Intact Assessment /Plan: # Chest pain for further evaluation: # Hx of CAD S/P CABG Surgery in [place], [place]. - Patient reports compliance with medications - Had [facility] last year with no new blockages identified. - Negative stress test on 10/2023 - I reviewed his limited echo which showed no regional wall motion. - We titrated his antianginal medications yesterday, but he cont to experience severe chest pain with exertion. Hence we proceeded with a stress test which showed large area of ischemia. We will discuss with the patient proceeding with [facility] tomorrow. Please make him NPO after mid-night. - Start heparin drip. - Cont amlodipine 10 mg daily, aspirin 81 mg daily, - Increase imdur to 120 mg and start ranolazine 500 mg daily. - Cont Coreg to 25 mg bid. # Mixed hyperlipidemia - Cont zetia - Start Lipitor 40 - LDL is 142 mg/dL # Ischemic cardiomyopathy with recovered EF # HTN urgency: - Cont amlodipine 10 mg daily, aldactone 25 mg daily. - Increase imdur to 120 mg and Coreg to 25 mg bid. - Increase losartan 25 mg daily. Plan discussed with referring physician and nursing team. Kai Mckoy MD [facility] ([facility]) [facility] [place] 01-17-2024 Plan of Care Problem: Knowledge Deficit Goal: Patient/family/caregiver demonstrates understanding of disease process, treatment plan, medications, and discharge instructions Outcome: Progressing Problem: Anxiety Goal: Anxiety is at manageable level Outcome: Progressing Problem: Pain - Adult Goal: Verbalizes/displays adequate comfort level or baseline comfort level Outcome: Progressing Problem: Hemodynamic Status Goal: Patient's vitals signs are stable Outcome: Progressing Goal: Patient has no life threatening arrhythmias Outcome: Progressing Goal: ND Core Measures Outcome: Progressing [facility] ([facility]) [facility] [place] 01-17-2024 Progress Notes Internal Medicine Progress Note Patient: Catherine Garnett : 1970 Admitted: 01/16/2024 PCP: No primary care provider on file. CC: Chest pain Subjective: Patient denies chest pain today, eating well, Physical Exam Physical Exam : General: alert, well appearing , no acute distress HEENT: Neck was supple, no lymphadenopathy, eyes with normal conjunctiva, EOMI, oralpharynx clear Heart: Regular rate and rhythm without murmur, pulses present in extremities Lungs: Clear bilaterally, no inspiratory crackles, rhonchi or wheezing, on RA Abdomen: Soft, non tender, no rebound or guarding, NABS Extremities: no edema, cyanosis or clubbing Neuro- moving all 4 extremities, no focal deficits Psych: Normal mood and affect LABS: MEDICATIONS: Scheduled: amLODIPine, 10 mg, oral, Daily aspirin, 81 mg, oral, Daily atorvastatin, 40 mg, oral, Daily carvediloL, 25 mg, oral, BID AC ezetimibe, 10 mg, oral, HS isosorbide mononitrate, 120 mg, oral, Daily [START ON 01/19/2024] losartan, 25 mg, oral, Daily nicotine, 1 patch, transdermal, Daily pantoprazole, 40 mg, oral, q AM AC polyethylene glycol, 17 g, oral, Daily QUEtiapine, 50 mg, oral, HS ranolazine, 500 mg, oral, BID sennosides-docusate sodium, 1 tablet, oral, HS sodium chloride 0.9 % (flush), 10 mL, intravenous, q12h CAROLANN spironolactone, 25 mg, oral, Daily PRN: albuterol, 2.5 mg alum-mag hydroxide-simeth, 15 mL calcium carbonate, 500 mg heparin (porcine), 5,000 Units HYDROcodone-acetaminophen, 1 tablet ibuprofen, 600 mg LORazepam, 0.5 mg morphine, 2 mg naloxone, 0.1 mg nitroglycerin, 0.4 mg ondansetron, 4 mg zolpidem, 5 mg Infusions: heparin (porcine) in 5 % dex infusion, 0-1,900 Units/hr, Last Rate: 1,000 Units/hr (01/18/24 1703) Assessment/Plan: Principal Problem: Unstable angina (HCC) Active Problems: Coronary artery disease involving autologous vein coronary bypass graft with unstable angina pectoris (HCC) Primary hypertension Class 1 obesity due to excess calories with body mass index (BMI) of 32.0 to 32.9 in adult Bipolar 1 disorder (HCC) Tobacco dependence The patient currently on telemetry, we have monitor the patient's serial troponins which are negative at this time. I have discuss and consulted Cardiology they would like to have a stress test and echocardiogram prior to discharge. The patient is in stable condition at this time, we had discussed his home meds and restart them. Electronically Signed by Betty Solitario MD [facility] ([facility]) [facility] [place] 01-17-2024 Plan of Care Pt admitted on 01/15 for chest pain. Pt reported having chest pain this morning, Tx with medication (see MAR). Troponins were negative today. Pt will be NPO at midnight. Plan of care for pt to get echo to determine need of stress test per cardiology. Problem: Knowledge Deficit Goal: Patient/family/caregiver demonstrates understanding of disease process, treatment plan, medications, and discharge instructions Outcome: Progressing Problem: Anxiety Goal: Anxiety is at manageable level Outcome: Progressing Problem: Pain - Adult Goal: Verbalizes/displays adequate comfort level or baseline comfort level Outcome: Progressing Problem: Hemodynamic Status Goal: Patient's vitals signs are stable Outcome: Progressing Goal: Patient has no life threatening arrhythmias Outcome: Progressing Goal: ND Core Measures Outcome: Progressing Problem: Inadequate Coping Goal: Demonstrates ability to cope effectively Outcome: Progressing Goal: Verbalizes adaptive coping mechanisms Outcome: Progressing Goal: Verbalizes personal strengths Outcome: Progressing Problem: Activity Intolerance/Impaired Mobility Goal: Mobility/activity is maintained at optimum level for patient Outcome: Progressing Problem: Nutrition Goal: Nutritional status is improving Outcome: Progressing Problem: ND Discharge Planning Goal: Discharge to home or other facility with appropriate resources Outcome: Progressing Goal: ND Discharge Instructions Outcome: Progressing Problem: Safety Goal: Patient states he/she will alert staff if feeling upset or agitated Outcome: Progressing Goal: Patient will remain in behavioral control and verbalize feelings of anger/agitation appropriately as evidenced by the absence of verbal and physical threats or acts toward others. Outcome: Progressing Goal: Patient will remain free from restraints Outcome: Progressing Problem: Inappropriate behavior Goal: Patient's noted defiance/aggression is being addressed with Attending or Primary Team, to include possible medication change Outcome: Progressing Goal: Patient will identify and verbalize common triggers of his/her anger Outcome: Progressing Goal: Patient will identify and verbalize preferred de-escalation methods such as talking, watching TV, listening to music, writing, and/or medication management Outcome: Progressing Goal: Patient and/or visitor's behavior improving as evidenced by therapeutic listening, verbal de-escalation strategies, and medication management Outcome: Progressing Problem: Participation in plan of care Goal: Patient will participate in plan of care and express preferences, goals, and differences of opinion appropriately Outcome: Progressing Goal: Patient will verbalize expectations of hospital and staff during inpatient stay and express perceptions of unmet expectations appropriately as needed Outcome: Progressing Goal: Patient will exhibit increased participation in plan of care Outcome: Progressing Goal: Patient able to abide by facility rules and follow treatment plan Outcome: Progressing Goal: Patient states willingness to participate with therapy/ADLs Outcome: Progressing Problem: Knowledge deficits Goal: Patient and/or visitor voiced his/her understanding of facility rules and policies Outcome: Progressing Goal: Patient verbalized understanding of hospital restraint philosophy, behaviors warranting the use of restraints, and staff interventions used to reduce the need for restraints Outcome: Progressing Goal: Patient/family/caregiver demonstrates understanding of disease process, disruptive behavior treatment plan, medications, and utilization of de-escalation techniques Outcome: Progressing [facility] ([facility]) [facility] [place] 01-17-2024 Case Management Note 01/17/24 1322 Caregiver Screening Does patient have a caregiver? No Screening Safe in Home Yes Safe in Relationship Yes Have there been threats or direct abuse of you or your children? No Has anyone ever choked or tried to choke you? 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 No How hard is it for you to pay for the very basics like food, housing, medical care, and heating? Not hard In the past 12 months, has lack of transportation kept you from medical appointments or from getting medications? no In the past 12 months, has lack of transportation kept you from meetings, work, or from getting things needed for daily living? No Within the past 12 months, you worried that your food would run out before you got the money to buy more. Never true In the last 12 months, was there a time when you were not able to pay the mortgage or rent on time? N In the past 12 months, how many times have you moved where you were living? 0 At any time in the past 12 months, were you homeless or living in a half-way (including now)? N Within the past 12 months, the food you bought just didn't last and you didn't have money to get more. Never true In the past 12 months has the [employer], gas, oil, or water [employer] threatened to shut off services in your home? 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 No Case Management Assessment Met with pt at bedside. Pt expresses frustration because he is getting kicked out. Also frustrated because he doesn't think that staff are managing his pain like they did in the ED. Pt apologized for his attitude. Pt is from [place], [place] and states that is where is his home is. Pt works for an [employer] and states he has not been home for 5 months. States kids are all grown and he is not . Pt does ADL's independently and pt can ambulate without assistance. Pt uses [facility] pharmac[facility] during his travels. Pt denies SDOH/Safety concerns. When SW asks if he had any needs, pt states no, then states I mean I am not going to jump out that window or anything. Pt goes on to say he could but he is just saying that. Patient Specific Goals Patient Goal for Admission chest pain resolved Patient Goal for Discharge back home (as OTR bradley) Reason for Hospitalization unstable angina [facility] ([facility]) [facility] [place] 01-17-2024 Nursing Note 01/17/24 1014 Patient Progress Rounds Patient expects to be discharged to: Home Stable and completed treatment? N Today we still await: Clinical stability;Diagnostic work-up;Reinforcing Steel Erector recommendations Consultants Cardiology Discharge Delays Diagnostic Diagnostic Treatment(s) needed [facility] ([facility]) [facility] [place] 01-17-[address] [address] [facility]OLOGY [facility]IAL [facility] PATIENT VISIT Patient: Catherine Garnett Date of : 1970 PCP: No primary care provider on file. Date of Admission: 01/16/2024 Date of Consult: 01/17/24 Chief complaint: Chief Complaint Patient presents with Chest Pain Referring Physician: Kassi Reason for consult: chest pain Patient's Primary Storage Consultant: Dr. Bal Mayen ([place], [place]) Cardiac History/Testing: CAD s/p CABG x4 2022 ICMP with normalized EF HTN HLD Bipolar disorder Angina 11/14/2023 Stress test Normal pharmacologic MPI. No ischemia or infarct. Normal left ventricular systolic function with LVEF 61%. Nondiagnostic pharmacologic EKG portion. Low risk for ischemic event in one year. Recommend continued medical management and aggressive risk factor reduction. Further evaluation should be based on symptom course. 11/10/2023 Echo 1. Left ventricular ejection fraction, by visual estimation, is 60 to 65%. 2. LV Diastology is indeterminate. 3. Mild concentric left ventricular hypertrophy. 4. Normal right ventricular size and systolic function. 5. Borderline dilated left atrium. 6. Mildly dilated right atrium. 7. Mild aortic valve sclerosis without stenosis. 8. Unable to adequately obtain RVSP. 9. Dilated inferior vena cava. 10. Trivial pericardial effusion. 04/11/22 Cardiac Cath Findings: 1. Right dominant coronary anatomy with a type 3 LAD. 2. 95% proximal LAD in stent restenosis. 60% mid LAD stenosis distal to D1. 3. 80% distal LCx stenosis 4. 60% distal RCA stenosis proximal to PDA 5. LVEDP = 30 mmHg. 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 He reports some shortness of breath and diaphoresis concurrently. Patient does have history of CAD status post CABG x4 in March 2022, ischemic cardiomyopathy with normalized EF, hypertension, hyperlipidemia, angina, tobacco abuse. He reports having stopped several places while on the road for evaluation of chest pain with negative cardiac assessment. Heart catheterization done in [place] 1 year ago without significant findings. Reports compliance with medications. TNI series negative. Basic metabolic panel and CBC unremarkable. D-dimer unremarkable. Chest x-ray without acute cardiopulmonary findings. EKG without acute findings. Low risk stress test recorded in Care everywhere from November 16, 2023. Patient received nitro x2 this morning without relief. He is currently IV pain medication since that thing that will work. Social history: Tobacco use: reports that he has been smoking cigarettes. He has never used smokeless tobacco. Alcohol/recreational drug use: denies, screen +opiates Family history: Noncontributory for cardiovascular disease. History reviewed. No pertinent family history. Past Medical History: Diagnosis Date Asthma Congestive heart failure (HCC) Coronary arteriosclerosis Essential hypertension Hyperlipidemia Past Surgical History: Procedure Laterality Date CARDIAC RHYTHM INTERVENTION ALLERGIES: Patient has no known allergies. OUTPATIENT MEDS: No current facility-administered medications on file prior to encounter. Current Outpatient Medications on File Prior to Encounter Medication Sig albuterol HFA (Ventolin HFA) 90 mcg/actuation inhaler Inhale 1 puff every 6 (six) hours if needed. amLODIPine (NORVASC) 10 mg tablet Take 1 tablet (10 mg total) by mouth in the morning. aspirin 81 mg chewable tablet Take 1 tablet (81 mg total) by mouth in the morning. carvediloL (COREG) 12.5 mg tablet Take 1 tablet (12.5 mg total) by mouth 2 (two) times per day. ezetimibe (ZETIA) 10 mg tablet Take 1 tablet (10 mg total) by mouth every night. isosorbide mononitrate (IMDUR) 30 mg 24 hr tablet Take 1 tablet (30 mg total) by mouth in the morning. nicotine (NICODERM CQ) 21 mg/[address] 1 patch on the skin 1 (one) time each day at the same time. pantoprazole (PROTONIX) 40 mg EC tablet Take 1 tablet (40 mg total) by mouth in the morning. QUEtiapine (SEROquel) 50 mg tablet Take 1 tablet (50 mg total) by mouth every night. spironolactone (ALDACTONE) 25 mg tablet Take 1 tablet (25 mg total) by mouth in the morning. INPATIENT MEDS: amLODIPine, 10 mg, oral, Daily aspirin, 81 mg, oral, Daily carvediloL, 12.5 mg, oral, BID ezetimibe, 10 mg, oral, HS isosorbide mononitrate, 30 mg, oral, Daily nicotine, 1 patch, transdermal, Daily pantoprazole, 40 mg, oral, q AM AC polyethylene glycol, 17 g, oral, Daily QUEtiapine, 50 mg, oral, HS sennosides-docusate sodium, 1 tablet, oral, HS sodium chloride 0.9 % (flush), 10 mL, intravenous, q12h CAROLANN spironolactone, 25 mg, oral, Daily LAB RESULTS: Lab Results Component Value Date NA 138 01/16/2024 K 4.2 01/16/2024 CL 107 01/16/2024 CO2 28 01/16/2024 BUN 14 01/16/2024 CREATININE 1.08 01/16/2024 CALCIUM 9.4 01/16/2024 GLUCOSE 102 01/16/2024 Lab Results Component Value Date WBC 9.77 01/16/2024 HGB 17.1 01/16/2024 HCT 51.6 01/16/2024 PLT 325 01/16/2024 No results found for: TSH No results found for: PT, INR No results found for: TROPONINI No results found for: PROBNP IMAGING RESULTS: X-Ray Chest 1 View Result Date: 01/16/2024 EXAM: Chest, 1 View INDICATION: Chest pain TECHNIQUE: Single View Chest COMPARISON: None FINDINGS: Normal cardiac size status post CABG. The great vessels appear unremarkable. Slight elevation of right hemidiaphragm. Lungs otherwise appear to be clear without consolidation or vascular congestion. There is no pleural effusion or pneumothorax. No acute osseous abnormalities. IMPRESSION: No acute cardiopulmonary findings status post CABG. Signed in [employer] by KAMILAH SHERWOOD MD at 01/16/2024 04:22:25 PM ECG/Tele: SB with PACs Vital Signs: BP 100/59 Pulse 73 Temp 36.4 \XC2B0\C (97.5 \XC2B0\F) (Oral) Resp 18 Ht 1.727 m (5' 8) Wt 113 kg (250 lb) SpO2 97% BMI 38.01 kg/m\XC2B2\ PRIMARY DIAGNOSIS Unstable angina (HCC) Assessment Chest pain Negative cardiac workup here. Recent [facility] 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 Appears to have this chronic angina. --Repeat TNI this am 16. --Echo pending --Continue Imdur 30mg daily. CAD s/p CABG x4 2022 Surgery in [place], [place]. Patient reports compliance with medications --Continue ASA 81mg daily --Continue Carvedilol 12.5mg twice daily. ICMP with normalized EF --Echo pending. HTN Blood pressure initially 140-160 on arrival. SBP 130 this am and 100 after 2x nitroglycerin. HLD On Zetia 10mg nightly. No statin therapy? Tobacco Abuse Encourage cessation. Plan: Discussed with Dr. Mckoy. Repeat TNI this am 16. Awaiting echo. Kristyn Liu NP 01/17/2024, 9:10 AM PHYSICIAN ADDENDUM: Today's Date: 01/17/24 I have seen, interviewed, and examined the patient. Case discussed with JOHANA. I reviewed relevant clinical information. EPIC chart data, reports, and clinical notes reviewed. Agree with data above as outlined by JOHANA. I modified consultation to reflect information from my evaluation to physical examination findings as noted below. Assessment and plan devised, formulated, and documented in conjunction with me. I personally reviewed Cardiac imaging studies. 53 yo male admitted with chest pain, trop has been negative 3 times. PHYSICAL EXAM: General appearance - NAD comfortable HEENT - Neck Supple, no JVD Chest -REY+ CTA Heart - S1s2+ RRR Abdomen -Soft NT ND Neurological - No focal deficits Extremities -No cyanosis, clubbing, edema Skin - Intact Assessment /Plan: # Chest pain for further evaluation: # Hx of CAD S/P CABG Surgery in [place], [place]. - Patient reports compliance with medications - Had [facility] last year with no new blockages identified. - Negative stress test on 10/2023 - Will obtain a limited echo and determine the need of stress test. - Cont amlodipine 10 mg daily, aspirin 81 mg daily, - Increase imdur to 60 mg and Coreg to 25 mg bid. # Mixed hyperlipidemia - Cont zetia - Start Lipitor 40 and get a lipid panel. # Ischemic cardiomyopathy with recovered EF # HTN urgency: - Cont amlodipine 10 mg daily, aldactone 25 mg daily. - Increase imdur to 60 mg and Coreg to 25 mg bid. - Start losartan 12.5 mg daily. Plan discussed with referring physician and nursing team. Kai Mckoy MD [facility] ([facility]) [facility] [place] 01-17-2024 Plan of Care Admitted to [facility] 01/15 at 1830 with chest pain. Rateds pain at time 810. Medicaated with Morphine 2 mg and Ativan 0.5 mg as needed. Also medicated with Torodal with some relief from all of the medication. This AM at 0230 patient woke up with chest pain and feeling nauseated. Medicated with zofran. Denies any SOB. Emotional support given and questions answered. VSS. Cardiology consult for this AM Problem: Knowledge Deficit Goal: Patient/family/caregiver demonstrates understanding of disease process, treatment plan, medications, and discharge instructions Outcome: Progressing Flowsheets (Taken 01/17/2024320) Addressed this shift: Patient/family/caregiver demonstrates understanding of disease process, treatment plan, medications, and discharge instructions: Complete learning assessment and assess knowledge base Provide teaching at level of understanding Provide teaching via preferred learning methods Educate patient regarding current medical condition, procedures, and plan of care Facilitate patient\[id number]\s understanding of the tests performed and medications administered during hospitalization Educate/reinforce post-discharge plan of care Problem: Anxiety Goal: Anxiety is at manageable level Outcome: Progressing Flowsheets (Taken 01/17/2024320) Addressed this shift: Anxiety is at a Manageable Level: Assess and monitor patient's anxiety level Explain treatment plan Encourage participation in care Identify coping mechanisms Administer/offer alternative therapies Limit or eliminate stimulants such as caffeine and nicotine Include patient/family/caregiver in decisions related to anxiety Hazard patient to unit/surroundings Explain tests/procedures prior to initiation Encourage verbalization of concerns/fear Assist in developing anxiety-reducing skills Manage patient's environment Collaborate with interdisciplinary team and initiate plan and interventions as ordered Problem: Pain - Adult Goal: Verbalizes/displays adequate comfort level or baseline comfort level Outcome: Progressing Flowsheets (Taken 01/17/2024320) Addressed this shift: Verbalizes/displays adequate comfort level or baseline comfort level: Encourage patient to monitor pain and request assistance Assess pain using appropriate pain scale Administer analgesics based on type and severity of pain and evaluate response Implement non-pharmacological measures as appropriate and evaluate response Consider cultural and social influences on pain and pain management Notify Licensed Independent Practitioner if interventions unsuccessful or patient reports new pain Problem: Hemodynamic Status Goal: Patient's vitals signs are stable Outcome: Progressing Flowsheets (Taken 01/17/2024320) Addressed this shift: Patient's vital signs are stable: Assess and monitor patient's heart rate, rhythm, respiratory rate, oxygen saturation, peripheral pulses, capillary refill, color, body temperature, intake and output, labs and physical activity tolerance Observe for signs of chest pain (note location, duration, severity, radiation and associated symptoms such as diaphoresis, nausea, indigestion) Monitor for signs and symptoms of heart failure (e.g. shortness of breath, edema of feet/ankles/legs, rapid irregular heart rate, coughing, wheezing, white/pink blood tinged sputum, sudden weight gain, chest pain) Initiate and maintain oxygen therapy. Wean oxygen as ordered. Position patient for maximum circulation/cardiac output Collaborate with interdisciplinary team and initiate plan and interventions as ordered Monitor fluid intake Plan activities to conserve energy Include patient/family/caregiver in decisions related to anxiety Goal: Patient has no life threatening arrhythmias Outcome: Progressing Flowsheets (Taken 01/17/2024320) Addressed this shift: Patient has no life threatening arrhythmias: Perform EKG per protocol/order Keep patient on continual cardiac monitoring as ordered Collaborate with interdisciplinary team and initiate plan and interventions as ordered Goal: ND Core Measures Outcome: Progressing Problem: Inadequate Coping Goal: Demonstrates ability to cope effectively Outcome: Progressing Flowsheets (Taken 01/17/2024 0321) Addressed this shift: Demonstrates ability to cope effectively: Encourage verbalization of feelings, perceptions, fears, stressors, loss of loved ones Encourage verbalization of problems out of their control Encourage participation in care Inform patient of all treatment/care prior to providing care Collaborate with pastoral/spiritual care, social work administrator, mental health counselor as needed Goal: Verbalizes adaptive coping mechanisms Outcome: Progressing Flowsheets (Taken 01/17/2024 032) Addressed this shift: Verbalizes adaptive coping mechanisms: Encourage ambulation/activity per patient's ability Encourage participation in diversionary activities Goal: Verbalizes personal strengths Outcome: Progressing Problem: Activity Intolerance/Impaired Mobility Goal: Mobility/activity is maintained at optimum level for patient Outcome: Progressing Problem: Nutrition Goal: Nutritional status is improving Outcome: Progressing Problem: ND Discharge Planning Goal: Discharge to home or other facility with appropriate resources Outcome: Progressing Goal: ND Discharge Instructions Outcome: Progressing Problem: Safety Goal: Patient states he/she will alert staff if feeling upset or agitated Outcome: Progressing Goal: Patient will remain in behavioral control and verbalize feelings of anger/agitation appropriately as evidenced by the absence of verbal and physical threats or acts toward others. Outcome: Progressing Goal: Patient will remain free from restraints Outcome: Progressing Problem: Inappropriate behavior Goal: Patient's noted defiance/aggression is being addressed with Attending or Primary Team, to include possible medication change Outcome: Progressing Goal: Patient will identify and verbalize common triggers of his/her anger Outcome: Progressing Goal: Patient will identify and verbalize preferred de-escalation methods such as talking, watching TV, listening to music, writing, and/or medication management Outcome: Progressing Goal: Patient and/or visitor's behavior improving as evidenced by therapeutic listening, verbal de-escalation strategies, and medication management Outcome: Progressing Problem: Participation in plan of care Goal: Patient will participate in plan of care and express preferences, goals, and differences of opinion appropriately Outcome: Progressing Goal: Patient will verbalize expectations of hospital and staff during inpatient stay and express perceptions of unmet expectations appropriately as needed Outcome: Progressing Goal: Patient will exhibit increased participation in plan of care Outcome: Progressing Goal: Patient able to abide by facility rules and follow treatment plan Outcome: Progressing Goal: Patient states willingness to participate with therapy/ADLs Outcome: Progressing Problem: Knowledge deficits Goal: Patient and/or visitor voiced his/her understanding of facility rules and policies Outcome: Progressing Goal: Patient verbalized understanding of hospital restraint philosophy, behaviors warranting the use of restraints, and staff interventions used to reduce the need for restraints Outcome: Progressing Goal: Patient/family/caregiver demonstrates understanding of disease process, disruptive behavior treatment plan, medications, and utilization of de-escalation techniques Outcome: Progressing [facility] ([facility]) [facility] [place] 01-16-2024 Nursing Note Pt arrived from the ED. Alert and oriented. [facility] ([facility]) [facility] [place] 01-16-2024 H&P Inpatient Hospitalist Service at [facility] HISTORY & PHYSICAL Patient: Catherine Garnett Date of : [birth year] PCP: No primary care provider on file. Code: Full Code Date of Admission: 01/16/2024 Assessment/Plan: Principal Problem: Unstable angina (HCC) Active Problems: Coronary artery disease involving autologous vein coronary bypass graft with unstable angina pectoris (HCC) Primary hypertension Class 1 obesity due to excess calories with body mass index (BMI) of 32.0 to 32.9 in adult Bipolar 1 disorder (HCC) Tobacco dependence I discussed the patient's symptoms, labs, imaging with the ER provider and agree with the decision for admission. In light of his uncontrolled hypertension and recent history of CABG we will admit the patient on telemetry and monitor overnight. Reviewed the labs myself personally showed a troponin 18, with normal electrolytes, normal creatinine of 1, normal CBC. The patient's D-dimer is only 490 which is essentially negative, the patient is on room air with saturation 90%, EKG reviewed myself which showed no ST or T-wave changes. We will and with the patient telemetry, have serial troponins overnight, Cardiology has been consulted to see if further risk stratification is necessary. I have started the patient back on his Protonix, nitroglycerin as needed, nicotine patch since he smokes 2 packs a day. Home meds were reviewed with the patient Patient status is Observation VTE Prophylaxis- lovenox CODE status/Proxy-Full Code Identification/Chief Complaint: Catherine Garnett is a 53 y.o. old male who has been admitted with a chief complaint of chest pain Source: The patient and ED presentation and plan of care personally discussed with the ED provider History of Present Illness: The patient is a 53-year-old gentleman with known hypertension bipolar disease who had four-vessel coronary artery bypass graft in March of 2022 who presents to our emergency room today complaining of constant sharp stabbing pain in the substernal area that radiates in the left side of his shoulder and left side of his neck and jaw. He reports that nothing appears to make the pain better and it spontaneously occurred this morning while he was asleep. Since his CABG 20 months ago he states he gets severe chest pain about once a month in his job requires him to travel frequently and has been at many different hospitalists across sedation being worked up for this chest pain. There was no nausea, diaphoresis, vomiting, headache, fevers, chills, cough, recent illness. He did show me several blood pressure readings that he captured on his phone that shows blood pressures in the 200s systolically. ROS: Pertinent Positives per HPI, all other review of systems negative History reviewed. No pertinent past medical history. History reviewed. No pertinent surgical history. Prior to Admission medications Medication Sig Start Date End Date Taking? Authorizing Provider albuterol HFA (Ventolin HFA) 90 mcg/actuation inhaler Inhale 1 puff every 6 (six) hours if needed. 02/26/23 Yes Historical Provider, amLODIPine (NORVASC) 10 mg tablet Take 1 tablet (10 mg total) by mouth in the morning. 02/27/23 Yes Historical Provider, aspirin 81 mg chewable tablet Take 1 tablet (81 mg total) by mouth in the morning. Yes Historical Provider, carvediloL (COREG) 12.5 mg tablet Take 1 tablet (12.5 mg total) by mouth 2 (two) times per day. 02/26/23 Yes Historical Provider, ezetimibe (ZETIA) 10 mg tablet Take 1 tablet (10 mg total) by mouth every night. 11/11/23 Yes Historical Provider, isosorbide mononitrate (IMDUR) 30 mg 24 hr tablet Take 1 tablet (30 mg total) by mouth in the morning. 02/27/23 Yes Historical Provider, nicotine (NICODERM CQ) 21 mg/[address] 1 patch on the skin 1 (one) time each day at the same time. Yes Historical Provider, pantoprazole (PROTONIX) 40 mg EC tablet Take 1 tablet (40 mg total) by mouth in the morning. 02/26/23 Yes Historical Provider, QUEtiapine (SEROquel) 50 mg tablet Take 1 tablet (50 mg total) by mouth every night. 09/13/23 Yes Historical Provider, spironolactone (ALDACTONE) 25 mg tablet Take 1 tablet (25 mg total) by mouth in the morning. 02/26/23 Yes Historical Provider, Allergies: No Known Allergies Social History Socioeconomic History Marital status: Single Spouse name: Not on file Number of children: Not on file Years of education: Not on file Highest education level: Not on file Occupational History Not on file Tobacco Use Smoking status: Every Day Types: Cigarettes Smokeless tobacco: Never Substance and Sexual Activity Alcohol use: Not on file Drug use: Not Currently Sexual activity: Not on file Other Topics Concern Not on file Social History Narrative Not on file Social Drivers of Health Financial Resource Strain: Low Risk (11/10/2023) Received from [facility] Overall Financial Resource Strain (CARDIA) Difficulty of Paying Living Expenses: Not very hard Food Insecurity: No Food Insecurity (12/22/2023) Received from [facility] Hunger Vital Sign Worried About Running Out of Food in the Last Year: Never true Ran Out of Food in the Last Year: Never true Transportation Needs: Unknown (12/22/2023) Received from [facility] PRAPARE - Transportation Lack of Transportation (Medical): Not on file Lack of Transportation (Non-Medical): No Physical Activity: Not on file Stress: Not on file Social Connections: Unknown (02/21/2023) Received from [facility] Social Connections How often do you see or talk to people that you care about and feel close to? (For example: talking to friends on the phone, visiting friends or family, going to christian or club meetings): I choose not to answer the question Interpersonal Safety: Not At Risk (01/16/2024) Interpersonal Safety Safe in Home?: Yes Are you in immediate danger?: Not on file Is your partner at the health facility now?: Not on file Do you want to (or have to) go home with your partner?: Not on file Do you have someplace safe to go?: Not on file Have there been threats or direct abuse of you or your children?: No When did the abuse occur?: Not on file Do you feel you are still at risk?: Not on file Are you in contact with your ex-partner or do you share children or custody?: Not on file Are you afraid your life may be in danger?: Not on file Has the violence gotten worse or is it getting scarier? More often?: Not on file Has anyone ever choked or tried to choke you?: No Do you feel you are still at risk for choking?: Not on file Are you in contact with ex-partner who choked or attempted to choke you? or do you share children or custody?: Not on file Are you afraid your life may be in danger due to choking?: Not on file Has the choking gotten worse or is it getting scarier? More often?: Not on file Has your partner used weapons, alcohol or drugs?: Not on file Has your partner ever held you or your children against your will?: Not on file Does your partner ever watch you closely, follow you or stalk you?: Not on file Has your partner ever threatened to kill you, him/herself or your children?: Not on file When did the choking or choking attempt occur?: Not on file Do you feel you are still at risk for choking?: Not on file Safe in Relationship?: Yes Housing Stability: Unknown (12/22/2023) Received from [facility] Housing Stability Vital Sign Unable to Pay for Housing in the Last Year: Not on file Number of Places Lived in the Last Year: Not on file In the last 12 months, was there a time when you did not have a steady place to sleep or slept in a half-way (including now)?: No History reviewed. No pertinent family history. Family history reviewed and non contributory. PHYSICAL EXAM: Vitals: BP 136/87 Pulse 71 Temp 37.1 \XC2B0\C (98.7 \XC2B0\F) Resp 20 Ht 1.778 m (5' 10) Wt 116 kg (255 lb) SpO2 96% BMI 36.59 kg/m\XC2B2\ General: alert, well appearing , no acute distress Neck: Supple, no lymphadenopathy Heart: Regular rate and rhythm without murmur Lungs: CTAB, no inspiratory crackles, rhonchi or wheezing Abdomen: Soft, NABS, no rebound or guarding Extremities: no edema, cyanosis or clubbing Psych: Normal mood and affect Neuro: Oriented x3, moves all four extremities spontaneously CURRENT DATA: Labs Reviewed COMPREHENSIVE METABOLIC PANEL - Abnormal Result Value Sodium 138 Potassium 4.2 Chloride 107 CO2 28 Anion Gap 3 (*) BUN 14 Creatinine 1.08 Glucose 102 Calcium 9.4 Total Protein 7.9 Albumin 3.6 Bilirubin, Total 0.40 Alkaline Phosphatase 102 ALT 37 AST 18 Estimated GFR 81 Globulin 4.3 A/G Ratio 0.8 (*) LIPASE - Normal Lipase 32 D-DIMER, QUANTITATIVE - Normal D-Dimer HS 491 TROPONIN, HIGH SENSITIVITY - Normal High Sensitivity Troponin 14.1 TROPONIN, HIGH SENSITIVITY - Normal High Sensitivity Troponin 18.1 TROPONIN, HIGH SENSITIVITY - Normal High Sensitivity Troponin 16.6 CBC NO DIFF WBC 9.77 RBC 6.08 Hemoglobin 17.1 Hematocrit 51.6 MCV 85 MCH 28.1 MCHC 33.1 MPV 9.5 Platelets 325 RDW 12.8 RDW-SD 39.7 Nucleated RBC, Absolute 0.00 Nucleated RBC 0.0 URINALYSIS WITH MICROSCOPIC TROPONIN, HIGH SENSITIVITY I have personally reviewed the following studies: X-Ray Chest 1 View Result Date: 01/16/2024 Narrative: EXAM: Chest, 1 View INDICATION: Chest pain TECHNIQUE: Single View Chest COMPARISON: None FINDINGS: Normal cardiac size status post CABG. The great vessels appear unremarkable. Slight elevation of right hemidiaphragm. Lungs otherwise appear to be clear without consolidation or vascular congestion. There is no pleural effusion or pneumothorax. No acute osseous abnormalities. IMPRESSION: No acute cardiopulmonary findings status post CABG. Signed in Lift by KAMILAH SHERWOOD MD at 01/16/2024 04:22:25 PM Electronically signed by: Betty Solitario MD 01/16/2024, 5:21 PM This note was completely or partially dictated using [employer] speak, Please note that there may be errors due to word nonrecognition. [facility] ([facility]) [facility] [place] 01-16-2024 Progress Notes Not available for x-ray [id number] [facility] ([facility]) [facility] [place] 01-16-2024 ED Provider Notes Attestation signed by Tera Cleveland MD at 01/16/2024 8:02 PM I have retrospectively reviewed this JOHANA's documentation and plan of care. I was the attending ED physician of record and was available for consultation during this patient's evaluation. I did not directly participate in management except as explicitly documented. - Tera Cleveland MD EMERGENCY MEDICINE NOTE Patient Catherine Garnett Age 53 y.o. Sex male Encounter Date 01/16/2024 CC Chief Complaint Patient presents with Chest Pain HPI 53-year-old male presents to the emergency department complaining of chest pain times 13 hours. Patient states last night at 1:00 a.m. in the morning he developed a gradual onset of chest pain that has been constant dull and radiating to his jaw. He does report some mild shortness of breath and diaphoresis. He currently rates his pain at a 9-10. 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 Six years prior to that he did have a single stent. He states that he is diabetic hyperlipidemic continues to smoke. 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 Patient states he did have a heart catheterization in [place] a year ago that was unremarkable ROS Review of Systems Constitutional: Positive for activity change, appetite change and diaphoresis. Negative for fatigue and fever. Respiratory: Positive for shortness of breath. Cardiovascular: Positive for chest pain. Gastrointestinal: Positive for nausea. Negative for abdominal pain and vomiting. Neurological: Negative for headaches. ALLERGIES No Known Allergies MEDICATIONS No current facility-administered medications on file prior to encounter. Current Outpatient Medications on File Prior to Encounter Medication Sig Dispense Refill carvediloL (COREG) 12.5 mg tablet Take 1 tablet (12.5 mg total) by mouth 2 (two) times per day. QUEtiapine (SEROquel) 50 mg tablet Take 1 tablet (50 mg total) by mouth every night. Patient History PMH History reviewed. No pertinent past medical history. PSH History reviewed. No pertinent surgical history. FH History reviewed. No pertinent family history. SH Social History Tobacco Use Smoking status: Every Day Types: Cigarettes Smokeless tobacco: Never Substance Use Topics Drug use: Not Currently EXAM Physical Exam ED Triage Vitals Temp Pulse Resp BP SpO2 -- -- -- -- -- Temp src Heart Rate Source Patient Position BP Location FiO2 (%) -- -- -- -- -- Vitals: 01/16/24 1430 01/16/24 1445 01/16/24 1545 01/16/24 1600 BP: (!) 138/90 136/87 Pulse: 74 71 71 Resp: 18 15 20 Temp: SpO2: 98% 97% 96% Weight: Physical Exam Constitutional: General: He is not in acute distress. Appearance: He is well-developed. He is not ill-appearing, toxic-appearing or diaphoretic. Comments: Smiling laughing conversational sitting semi recumbent appears clinically well and comfortable HENT: Head: Normocephalic and atraumatic. Eyes: Extraocular Movements: Extraocular movements intact. Cardiovascular: Rate and Rhythm: Normal rate and regular rhythm. Pulmonary: Breath sounds: Normal breath sounds. Musculoskeletal: General: Normal range of motion. Cervical back: Normal range of motion and neck supple. Skin: General: Skin is warm. Neurological: General: No focal deficit present. Mental Status: He is alert. LABS Labs Reviewed COMPREHENSIVE METABOLIC PANEL - Abnormal Result Value Sodium 138 Potassium 4.2 Chloride 107 CO2 28 Anion Gap 3 (*) BUN 14 Creatinine 1.08 Glucose 102 Calcium 9.4 Total Protein 7.9 Albumin 3.6 Bilirubin, Total 0.40 Alkaline Phosphatase 102 ALT 37 AST 18 Estimated GFR 81 Globulin 4.3 A/G Ratio 0.8 (*) LIPASE - Normal Lipase 32 D-DIMER, QUANTITATIVE - Normal D-Dimer HS 491 TROPONIN, HIGH SENSITIVITY - Normal High Sensitivity Troponin 14.1 TROPONIN, HIGH SENSITIVITY - Normal High Sensitivity Troponin 18.1 CBC NO DIFF WBC 9.77 RBC 6.08 Hemoglobin 17.1 Hematocrit 51.6 MCV 85 MCH 28.1 MCHC 33.1 MPV 9.5 Platelets 325 RDW 12.8 RDW-SD 39.7 Nucleated RBC, Absolute 0.00 Nucleated RBC 0.0 URINALYSIS WITH MICROSCOPIC TROPONIN, HIGH SENSITIVITY ECG ECG 12 lead ECG 12 lead IMAGING X-Ray Chest 1 View Final Result PROCEDURES Procedures MDM Diagnostic considerations and differential diagnoses: Complexity of problem: High -acute onset substernal chest pain in context of coronary artery disease posing potential threat to cardiopulmonary body function Data analyzed: Extensive Category 1: -multiple laboratory studies are initiated. -multiple radiologic studies initiated Category 2: Interpretation EKG interpreted by Dr. Delfino ACEVEDO no acute findings. EKG 2. Interpreted by Easton ACEVEDO no acute findings EKG 3. Interpreted by pending CBC reveals no acute findings CMP reveals no acute findings Lipase reveals 32 Urinalysis reveals Troponin reveals 14.1 Troponin 2. Reveals 18.1 Troponin 3. Reveals pending D-dimer reveals 491 Chest x-ray reveals interpreted by radiologist no acute findings Category 3: Consultation -case was discussed with Dr. Easton ACEVEDO he reviewed EKG and workup continued. -case was rediscussed with Dr. Cristofer ACEVEDO he recommends admission due to continued pain and inability to risk stratify -access contacted at 4:[address] Bennett hospitalist agrees to admit the patient at 443 Patient placed on child monitor blood pressure monitor pulse oximetry IV was placed. Patient given sublingual nitroglycerin as well as morphine 4 mg IV Zofran 4 mg IV patient given aspirin 324 mg chewable. 1534 patient's pain is improved from a 910 to a 6-7 after the morphine has not received nitro yet. Upon re-evaluation after 2 nitroglycerin patient's pain is now increased to an 8 he is also complaining of the headache unrelated likely due to the nitroglycerin he was given Tylenol 1000 mg p.o.. Patient's systolic is now 107 he was given fentanyl 50 mcg IV Zofran 4 mg IV ED COURSE AND IMPRESSION Clinical Impressions as of 01/16/24 1643 Unstable angina (HCC) Chest pain, unspecified type ED Medication Administration from 01/16/2024 1401 to 01/16/2024 1643 Date/Time Order Dose Route Action Action by 01/16/2024 1457 CDT ondansetron (ZOFRAN) injection 4 mg 4 mg intravenous Given Alyssa Gong 01/16/2024 1457 CDT morphine injection 4 mg 4 mg intravenous Given Beltran B 01/16/2024 1454 CDT aspirin chewable tablet 324 mg 324 mg oral Given Beltran B 01/16/2024 1547 CDT nitroglycerin (NITROSTAT) SL tablet 0.4 mg 0.4 mg sublingual Given Alyssa Gong 01/16/2024 1611 CDT nitroglycerin (NITROSTAT) SL tablet 0.4 mg 0.4 mg sublingual Given Melissa Zelaya 01/16/2024 1633 CDT acetaminophen (TYLENOL) tablet 1,000 mg 1,000 mg oral Given Melissa Zelaya 01/16/2024 1637 CDT ondansetron (ZOFRAN) injection 4 mg 4 mg intravenous Given Melissa Zelaya 01/16/2024 1637 CDT fentaNYL (SUBLIMAZE) injection 50 mcg 50 mcg intravenous Given Melissa Zelaya ED Prescriptions None Rufino Membreno PA-C 01/16/24 1643 Tera Cleveland MD 01/16/242001 [facility] ([facility]) [facility] [place] 01-16-2024 ED Triage Notes ED Triage Note Pt to ED CP and jaw pain since 0100 this am when he laid down to sleep. Hx stent 7 years ago, and quadruple bypass 18 months ago. A&O. Electronically signed by: Bhakti Reece RN 01/16/24 2:14 PM [facility] ([facility]) [facility] [place] Additional Source Comments This clinical document has been generated using [employer] software that has been certified by the Office of the National Coordinator for Health Information Technology (ONC 15.99.04.3023.Diam.31.00.0.004805) and the National Committee for Home Extension Agent (NCQA, as an eMeasure certified technology). FOR RECORDS PERTAINING TO PATIENTS WHO ARE [...] BE BASED ON THE PRIMARY CLINICAL RECORDS. [employer] provides no warranty or guarantee of the accuracy or completeness of information in this document.The following information is based on time limited clinical information
--- OUTSIDE RECORDS SUMMARY | 2024-04-09 16:18 | XMS_ITS | Encounter Summary ---
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 circumstances. Scheduled transportation Date & Time: 02/24/2024 @ 1410 PER OPERATOR * PLAN OF CARE - Silke Head APSW - 02/24/2024 11:51 AM CST Initial SW/CM Assessment/Plan of Care Note Baseline Assessment 53 year old admitted 02/22/2024 as Observation with a diagnosis of chest pain. Prior to admission patient was living alone and residing in van . Patient does not have a Power of Shear Grinder Operator Helper for Healthcare. Patient???s Primary Care Provider is [...] his POA and needed assistance with witness. Channeling Machine Runner and social work peer witnessed pt signing document, provided pt with copies and placed in chart for medical records. Plan Patient/Family Discharge Goal: Outpatient [facility] health, Inpatient psych facility TEDDY/MIKEL - Recommendations for Discharge: OP therapy Barriers to Discharge Identified Barriers to Discharge/Transition Planning: Anticipate patient will need post-hospital services. Necessary services are available. Anticipate patient can return to the environment from which patient entered the hospital. Anticipate patient can provide self-care at discharge. Refer to TEDDY/MIKEL Flowsheet for objective data. 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 MD Gonzalez made changes to medications. Nursing to continue to monitor. Problem: Pain Goal: Acceptable pain level achieved/maintained at rest using appropriate pain scale for the patient Outcome: Monitoring/Evaluating progress PER OPERATOR documented in this encounter Plan of Treatment Upcoming Encounters Date Type Department Care Team (Late st Contact Info) Description 07/05/2024 4:15 PM CDT Office Visit [facility] [phone] [address] Bal Mayen MD [address] [address] Scheduled Orders Name Type Priority Associated Diagnoses Orde r Schedule Electrocardiogram 12-Lead EKG STAT If condition met for 1 Occurrences starting 02/22/2024 documented as of this encounter Goals Goal Patient Goal Type Associated Problems Recent Progress Patient-Stated? Author Advance Directives General Yes Abbey Castano, SENIOR TAX MANAGER Note: Honoring Choices document sent 02/03 documented as of this encounter Procedures Procedure Name Priority Date/Time Associated Diagnosis Comments POTASSIUM Routine 02/23/2024 3:33 AM WRAPPER OPERATOR DRUG SCREEN, URINE Routine 02/22/2024 11 :23 PM WRAPPER OPERATOR TROPONIN I, HIGH SENSITIVITY Routine 02/22/2024 6:06 PM WRAPPER OPERATOR XR CHEST AP OR PA STAT 02/22/2024 12: 16 PM WRAPPER OPERATOR TROPONIN I POINT OF CARE Routine 024 12:10 PM WRAPPER OPERATOR ISTAT CHEM8 - POINT OF CARE Routine 02/22/2024 12:02 PM WRAPPER OPERATOR TROPONIN I, HIGH SENSITIVITY STAT 02/22/2024 11:56 AM WRAPPER OPERATOR CBC WITH DIFFERENTIAL STAT 02/22/2024 11:56 AM WRAPPER OPERATOR CBC WITH AUTOMATED DIFFERENTIAL (PERFORMABLE ONLY) STAT 02/22/2024 11:56 AM WRAPPER OPERATOR COMPREHENSIVE METABOLIC PANEL STAT 02/22/2024 11:56 AM WRAPPER OPERATOR NT PROBNP STAT 02/22/2024 11:56 AM WRAPPER OPERATOR ELECTROCARDIOGRAM 12-LEAD STAT 2023 11:25 AM WRAPPER OPERATOR documented in this encounter Results * Potassium (02/23/2024 3:33 AM WRAPPER OPERATOR) [facility] Potassium 4.4 3.4 - 5.1 mmol/L 02/23/2024 4:08 AM WRAPPER OPERATOR [facility] Blood VENOUS BLOOD SPECIMEN / Unknown Venipuncture / Unknown 02/23/2024 3:33 AM WRAPPER OPERATOR 02/23/2024 3:46 AM WRAPPER OPERATOR Christy Gonzalez MD BKR LAB BLOOD ORDERA BLES [facility] [address] [place] [address] * (ABNORMAL) Drug Abuse Screen, Urine (02/22/2024 11:23 PM WRAPPER OPERATOR) Amphetamines, Urine Negative Negative 02/23/2024 12:06 AM [facility] Comment:Cutoff = 500 ng/mL Barbiturates, Urine Negative Negative 02/23/2024 12:06 AM [facility] Comment:Cutoff = 200 ng/mL Benzodiazepin es, Urine Negative Negative 02/23/2024 12:06 AM [facility] Comment:Cutoff = 200 ng/mL Cocaine/ Metabolite, Urine Negative Negative 02/23/2024 12:06 AM [facility] Comment:Cutoff = 150 ng/ml Opiates, Urine Positive(A) Negative 02/23/2024 12:06 AM [facility] Comment:Cutoff = 300 ng/mL Phencyclidine , Urine Negative Negative 02/23/2024 12:06 AM [facility] Comment:Cutoff = 25 ng/mL Cannabinoids, Urine Negative Negative 02/23/2024 12:06 AM [facility] Comment:Cutoff = 50 ng/mL Fentanyl, Urine Screen Negative Negative 02/23/2024 12:06 AM [facility] Comment:Cutoff = 1.0 ng/mL Urine URINE SPECIMEN OBTAINED BY CLEAN CATCH PROCEDURE / Unknown 02/22/2024 11:23 PM [facility] 02/22/2024 11:29 PM Formerly named [facility] - 02/23/2024 12:06 AM [facility] Drug screening is for medical purposes only. This is a screening assay only and false-positive or false-negative results can occur. A definitive confirmation by LC/MS may be ordered to confirm clinically questionable results. Christy Gonzalez MD BKR LAB URINE ORDERA BLES [facility] [address] [place] [address] * TROPONIN I, HIGH SENSITIVITY (02/22/2024 6:06 PM [facility]) Troponin I, High Sensitivity 10 <77 ng/L 02/22/2024 6:41 PM WRAPPER OPERATOR [facility] Blood VENOUS BLOOD SPECIMEN / Unknown Venipuncture / Unknown 02/22/2024 6:06 PM WRAPPER OPERATOR 02/22/2024 6:09 PM WRAPPER OPERATOR Christy Gonzalez MD BKR LAB BLOOD ORDERA BLES [facility] [address] [place] [address] * XR CHEST PA OR AP 1 VIEW (02/22/2024 12:16 PM WRAPPER OPERATOR) Anatomical Region Laterality Modality Chest/Thorax N/A Digital Radiogra phy 02/22/2024 12:2 2 PM WRAPPER OPERATOR Impressions 02/22/2024 12:25 PM WRAPPER OPERATOR IMPRESSION: No acute cardiopulmonary findings. Stable postoperative changes. I, Attending Radiologist Ksenia Owens MD, have reviewed the images and report and concur with these findings interpreted by Resident Radiologist, Haja Saleh DO. Electronically Signed by: Ksenia Owens MD Signed on: 02/22/2024 12:25 PM Created on Workstation ID: [id number] Signed on Workstation ID: [id number] Narrative 02/22/2024 12:25 PM WRAPPER OPERATOR EXAM: XR CHEST AP OR PA HISTORY: [...] 02/22/2024 12:25 PM Created on Workstation ID: [id number] Signed on Workstation ID: [id number] Criss Leyva DO IMG XR PROCEDURES * (ABNORMAL) TROPONIN I POINT OF CARE (02/22/2024 12:10 PM WRAPPER OPERATOR) TROPONIN I - POINT OF CARE 0.40(H) <0.10 ng/mL 02/22/2024 12:10 PM WRAPPER OPERATOR [facility] Blood BLOOD SPECIMEN / Unknown 02/22/2024 12:10 PM WRAPPER OPERATOR 02/22/2024 12:12 PM WRAPPER OPERATOR Criss Leyva DO BKR LAB PT OF CARE T [facility] Performing Organization Address City/State/[facility] Co de Phone Number [address] [address] * (ABNORMAL) ISTAT8 VENOUS POINT OF CARE (02/22/2024 12:02 PM WRAPPER OPERATOR) BUN - POINT OF CARE 5(L) 6 - 20 mg/dL 02/22/2024 12:02 PM [facility] SODIUM - POINT OF CARE 135 135 - 145 mmol/L 02/22/2024 12:02 PM [facility] POTASSIUM - POINT OF CARE 4.2 3.4 - 5.1 mmol/L 02/22/2024 12:02 PM [facility] CHLORIDE - POINT OF CARE 105 97 - 110 mmol/L 02/22/2024 12:02 PM [facility] TCO2 - POINT OF CARE 23 19 - 24 mmol/L 02/22/2024 12:02 PM [facility] ANION GAP - POINT OF CARE 11 7 - 19 mmol/L 02/22/2024 12:02 PM [facility] HEMATOCRIT - POINT OF CARE 50.0 39.0 - 51.0 % 02/22/2024 12:02 PM [facility] HEMOGLOBIN - POINT OF CARE 17.0 13.0 - 17.0 g/dL 02/22/2024 12:02 PM [facility] GLUCOSE - POINT OF CARE 90 70 - 99 mg/dL 02/22/2024 12:02 PM [facility] CALCIUM, IONIZED - POINT OF CARE 0.90(L) 1.15 - 1.29 mmol/L 02/22/2024 12:02 PM [facility] Creatinine 0.90 0.67 - 1.17 mg/dL 02/22/2024 12:02 PM [facility] Glomerular Filtration Rate >90 >=60 02/22/2024 12:02 PM [facility] Comment:eGFR results = or >6 0 mL/min/1.73m2 = Normal kidney function. Estimated GFR calculated using the CKD-EPI-R (2020) equation that does not include race in the creatinine calculation. Blood BLOOD SPECIMEN / Unknown 02/22/2024 12:02 PM WRAPPER OPERATOR 02/22/2024 12:06 PM WRAPPER OPERATOR Criss Leyva DO BKR LAB PT OF CARE [facility] [address] [place] [address] * (ABNORMAL) CBC with Automated Differential (performable only) (02/22/2024 11:56 AM WRAPPER OPERATOR) WBC 8.7 4.2 - 11.0 K/mcL 02/22/2024 12:08 PM [facility] RBC 5.93(H) 4.50 - 5.90 mil/mcL 02/22/2024 12:08 PM [facility] HGB 16.7 13.0 - 17.0 g/dL 02/22/2024 12:08 PM [facility] HCT 49.0 39.0 - 51.0 % 02/22/2024 12:08 PM [facility] MCV 82.6 78.0 - 100.0 fl 02/22/2024 12:08 PM [facility] MCH 28.2 26.0 - 34.0 pg 02/22/2024 12:08 PM [facility] MCHC 34.1 32.0 - 36.5 g/dL 02/22/2024 12:08 PM [facility] RDW-CV 13.0 11.0 - 15.0 % 02/22/2024 12:08 PM [facility] RDW-SD 39.0 39.0 - 50.0 fL 02/22/2024 12:08 PM [facility] PLT 207 140 - 450 K/mcL 02/22/2024 12:08 PM [facility] NRBC 0 <=0 /100 WBC 02/22/2024 12:08 PM [facility] Neutrophil, Percent 63 % 02/22/2024 12:08 PM [facility] Lymphocytes, Percent 25 % 02/22/2024 12:08 PM [facility] [place], Percent 9 % 02/22/2024 12:08 PM [facility] Eosinophils, Percent 2 % 02/22/2024 12:08 PM [facility] Basophils, Percent 1 % 02/22/2024 12:08 PM [facility] Immature Granulocytes 0 % 02/22/2024 12:08 PM [facility] Absolute Neutrophils 5.5 1.8 - 7.7 K/mcL 02/22/2024 12:08 PM [facility] Absolute Lymphocytes 2.2 1.0 - 4.0 K/mcL 02/22/2024 12:08 PM [facility] Absolute Monocytes 0.8 0.3 - 0.9 K/mcL 02/22/2024 12:08 PM [facility] Absolute Eosinophils 0.2 0.0 - 0.5 K/mcL 02/22/2024 12:08 PM [facility] Absolute Basophils 0.1 0.0 - 0.3 K/mcL 02/22/2024 12:08 PM WRAPPER OPERATOR [facility] Absolute Immature Granulocytes 0.0 0.0 - 0.2 K/mcL 02/22/2024 12:08 PM WRAPPER OPERATOR [facility] Blood VENOUS BLOOD SPECIMEN / Unknown Venipuncture / Unknown 02/22/2024 11:56 AM WRAPPER OPERATOR 02/22/2024 12:00 PM WRAPPER OPERATOR Criss Leyva DO BKR LAB BLOOD ORDERA BLES [address] [address] * (ABNORMAL) NT proBNP (02/22/2024 11:56 AM WRAPPER OPERATOR) NT-proBNP 445(H) <=125 pg/mL 02/22/2024 12:37 PM WRAPPER OPERATOR [facility] Blood VENOUS BLOOD SPECIMEN / Unknown Venipuncture / Unknown 02/22/2024 11:56 AM WRAPPER OPERATOR 02/22/2024 12:00 PM WRAPPER OPERATOR Criss Leyva DO BKR LAB BLOOD ORDERA BLES Performing Organization Address City/[facility]/ZIP Co de Phone Number [address] [address] * TROPONIN I, HIGH SENSITIVITY (02/22/2024 11:56 AM WRAPPER OPERATOR) Troponin I, High Sensitivity 12 <77 ng/L 02/22/2024 12:37 PM WRAPPER OPERATOR [facility] Blood VENOUS BLOOD SPECIMEN / Unknown Venipuncture / Unknown 02/22/2024 11:56 AM WRAPPER OPERATOR 02/22/2024 12:00 PM WRAPPER OPERATOR Criss Leyva DO BKR LAB BLOOD ORDERA BLES [address] [address] * (ABNORMAL) Comprehensive Metabolic Panel (02/22/2024 11:56 AM [facility]) Fasting Status 02/22/2024 12:37 PM [facility] Sodium 138 135 - 145 mmol/L 02/22/2024 12:37 PM [facility] Potassium 3.9 3.4 - 5.1 mmol/L 02/22/2024 12:37 PM [facility] Comment:Slight hemolysis, re sult may be falsely increased. Chloride 104 97 - 110 mmol/L 02/22/2024 12:37 PM [facility] Carbon Dioxide 26 21 - 32 mmol/L 02/22/2024 12:37 PM [facility] Anion Gap 12 7 - 19 mmol/L 02/22/2024 12:37 PM [facility] Glucose 88 70 - 99 mg/dL 02/22/2024 12:37 PM [facility] BUN 6 6 - 20 mg/dL 02/22/2024 12:37 PM [facility] Creatinine 0.82 0.67 - 1.17 mg/dL 02/22/2024 12:37 PM [facility] Glomerular Filtration Rate >90 >=60 02/22/2024 12:37 PM [facility] Comment:eGFR results = or >6 0 mL/min/1.73m2 = Normal kidney function. Estimated GFR calculated using the CKD-EPI-R (2020) equation that does not include race in the creatinine calculation. BUN/Cr 7 7 - 25 02/22/2024 12:37 PM [facility] Calcium 9.1 8.4 - 10.2 mg/dL 02/22/2024 12:37 PM [facility] Bilirubin, Total 0.5 0.2 - 1.0 mg/dL 02/22/2024 12:37 PM [facility] GOT/AST 26 <=37 Units/L 02/22/2024 12:37 PM WRAPPER OPERATOR [facility] Comment:Slight hemolysis, re sult may be falsely increased. GPT/ALT 46 <64 Units/L 02/22/2024 12:37 PM [facility] Alkaline Phosphatase 100 45 - 117 Units/L 02/22/2024 12:37 PM [facility] Albumin 3.8 3.4 - 5.0 g/dL 02/22/2024 12:37 PM [facility] Protein, Total 8.1 6.4 - 8.2 g/dL 02/22/2024 12:37 PM [facility] Globulin 4.3(H) 2.0 - 4.0 g/dL 02/22/2024 12:37 PM [facility] A/G Ratio 0.9(L) 1.0 - 2.4 02/22/2024 12:37 PM [facility] Blood VENOUS BLOOD SPECIMEN / Unknown Venipuncture / Unknown 02/22/2024 11:56 AM WRAPPER OPERATOR 02/22/2024 12:00 PM WRAPPER OPERATOR Criss HANDLEY LAB BLOOD ORDERA BLES [facility] [address] [place] [address] * Electrocardiogram 12-Lead (02/22/2024 11:25 AM WRAPPER OPERATOR) Ventricular Rate EKG/Min (BPM) 91 MUSE Atrial Rate (BPM) 91 MUSE MS-Interval (MSEC) 148 MUSE QRS-Interval (MSEC) 86 MUSE QT-Interval (MSEC) 370 MUSE QTc 455 MUSE P [place] (Degrees) 49 MUSE T [place] (Degrees) 80 MUSE REPORT TEXT Normal sinus rhythm Possible Left atrial enlargement Septal infarct , age undetermined Abnormal ECG When compared with ECG of 20-FEB-2023 14:18, premature atrial complexes are no longer present Confirmed by Edie LEYVA, CRISS Torres ([id number]), supervising film or videotape editor Domo Freitas ([id number]) on 02/22/2024 11:44:01 AM MUSE 02/22/2024 11:2 5 AM WRAPPER OPERATOR Criss Leyva DO ECG ORDERABLES MUSE documented in this encounter Visit Diagnoses Diagnosis Hypertensive urgency- Primary Unspecified essential hypertension Hypertensive urgency Unspecified essential hypertension Chest pain, unspecified type Bipolar depression (CMD) Bipolar I disorder, most recent episode (or current) depressed, unspecified PTSD (post-traumatic stress disorder) [F43.10] Posttraumatic stress disorder documented in this encounter Admitting Diagnoses Diagnosis Hypertensive urgency Unspecified essential hypertension documented in this encounter Administered Medications Inactive Administered Medications - up to 1 most recent administrations Medication Order MAR Action Action Date Dose Rate Site ARIPiprazole (ABILIFY) tablet 10 mg 10 mg DAILY, Oral, First dose on Wed02/23/24 at 0900 Given 02/24/2024 9:07 AM WRAPPER OPERATOR 10 mg aspirin (ECOTRIN) enteric coated tablet 81 mg 81 mg DAILY, Oral, First dose on Wed02/23/24 at 0900, Do not crush or chew. Given 02/24/2024 9:04 AM WRAPPER OPERATOR 81 mg atorvastatin (LIPITOR) tablet 80 mg 80 mg AT BEDTIME, Oral, First dose on Wed02/22/24 at 2100, Avoid co-administration with grapefruit juice. Given 02/23/2024 9:02 PM WRAPPER OPERATOR 80 mg carvedilol (COREG) tablet 12.5 mg 12.5 mg EVERY 12 HOURS SCHEDULED (2 times per day), Oral, First dose on Wed02/22/24 at 2100, Monitor BP / Check pulse before giving dose. Do NOT hold dose prior to surgery without a physician order., Hold for SBP less than: 90, Hold for HR less than: 50 Given 02/24/2024 9:04 AM WRAPPER OPERATOR 12.5 mg cloNIDine (CATAPRES) tablet 0.1 mg 0.1 mg EVERY 12 HOURS SCHEDULED (2 times per day), Oral, First dose on Wed02/22/24 at 1857 Given 02/22/2024 7:39 PM WRAPPER OPERATOR 0.1 mg clopidogrel (PLAVIX) tablet 75 mg 75 mg DAILY, Oral, First dose on Wed02/23/24 at 0900 Given 02/24/2024 9:04 AM WRAPPER OPERATOR 75 mg escitalopram (LEXAPRO) tablet 20 mg 20 mg DAILY, Oral, First dose on Wed02/23/24 at 0900 Given 02/24/2024 9:04 AM WRAPPER OPERATOR 20 mg ezetimibe (ZETIA) tablet 10 mg 10 mg AT BEDTIME, Oral, First dose on Wed02/22/24 at 2100 Given 02/23/2024 9:03 PM WRAPPER OPERATOR 10 mg hydrALAZINE (APRESOLINE) injection 20 mg 20 mg EVERY 6 HOURS PRN, Intravenous, High Blood Pressure, for SBP>170, Starting on Wed02/22/24 at 1713, * Do NOT Refrigerate * Given 02/22/2024 6:10 PM WRAPPER OPERATOR 20 mg labetalol (NORMODYNE) injection 10 mg 10 mg ONCE, Intravenous, On Wed02/22/24 at 1246, For 1 dose, Monitor BP / Check apical pulse prior to giving dose. Do NOT hold dose prior to surgery without a physician order. IV Push Administration Rate: 10 mg/min. * Protect from Light * Given 02/22/2024 12:53 PM WRAPPER OPERATOR 10 mg labetalol (NORMODYNE) injection 10 mg 10 mg ONCE, Intravenous, On Wed02/22/24 at 1413, For 1 dose, Monitor BP / Check apical pulse prior to giving dose. Do NOT hold dose prior to surgery without a physician order. IV Push Administration Rate: 10 mg/min. * Protect from Light * Given 02/22/2024 2:17 PM WRAPPER OPERATOR 10 mg LORazepam (ATIVAN) tablet 1 mg 1 mg ONCE, Oral, On Wed02/22/24 at 1326, For 1 dose Given 02/22/2024 2:03 PM WRAPPER OPERATOR 1 mg morphine injection 2 mg 2 mg EVERY 3 HOURS PRN, Intravenous, Severe Pain, Starting on Wed02/22/24 at 1806, If an IV and an oral/MS medication are ordered PRN for the same pain severity, administer IV only if patient is NPO/if oral is not tolerated. Given 02/23/2024 10:42 AM WRAPPER OPERATOR 2 mg nicotine (NICODERM) 21 MG/24HR patch 1 patch 1 patch DAILY, Transdermal, First dose on Wed02/23/24 at 0430, * Remove old patch before applying new patch * Apply patch to a clean dry hair-free area. Alternate the application site. * Patch contains metal and should be removed prior to MRI due to risk of ovalle * Patch Applied 02/24/2024 7:00 AM WRAPPER OPERATOR 1 patch Arm, Right potassium CHLORIDE (KLOR-CON M) garrick ER tablet 40 mEq 40 mEq ONCE, Oral, On Wed02/22/24 at 1900, For 1 dose, Ordered placed per 3.6 - 4 mEq/L Potassium Replacement BPA. Do NOT crush or chew. Scored tablets may be split. Give with meals whenever possible to decrease GI effects. Given 02/22/2024 7:39 PM WRAPPER OPERATOR 40 mEq QUEtiapine (SEROquel) tablet 50 mg 50 mg AT BEDTIME, Oral, First dose on Wed02/22/24 at 2100 Given 02/23/2024 9:03 PM WRAPPER OPERATOR 50 mg ranolazine (RANEXA) 12 hr tablet 500 mg 500 mg 2 TIMES DAILY, Oral, First dose on Wed02/22/24 at 2100, Do not crush or chew. Given 02/24/2024 9:04 AM WRAPPER OPERATOR 500 mg sodium chloride (NORMAL SALINE) 0.9 % bolus 500 mL 500 mL PRN, Intravenous, Administer over 30 Minutes, Other, Symptomatic hypotension, SBP less than 90 mmHg, Starting on Wed02/22/24 at 1752, Unless patient is actively being treated for CHF. New Bag 02/22/2024 10:43 PM WRAPPER OPERATOR 500 mLs 999 mL/hr sodium chloride 0.9 % injection 10 mL 10 mL PRN, Intravenous, Flush, Starting on Wed02/22/24 at 1143, To flush tubing following intermittent infusions. sodium chloride 0.9 % injection 2 mL 2 mL EVERY 12 HOURS SCHEDULED (2 times per day), Intracatheter, First dose on Wed02/22/24 at 1344 Given 02/24/2024 9:05 AM WRAPPER OPERATOR 2 mLs spironolactone (ALDACTONE) tablet 25 mg 25 mg DAILY, Oral, First dose on Wed02/23/24 at 0900 Given 02/24/2024 9:04 AM WRAPPER OPERATOR 25 mg documented in this encounter Discontinued Medications Medication Sig Discontinue Reason Start Date End Da te nicotine (NICODERM) 21 MG/24HR patch Place 1 patch onto the skin daily. Med List Clean up - No Rx eCancel Message Sent 05/18/2022 02/22/2024 pantoprazole (PROTONIX) 40 MG tablet Take 40 mg by mouth daily. Error 02/22/2024 pantoprazole (PROTONIX) 40 MG tabletIndications:Gastr oesophageal Reflux Disease Take 1 tablet by mouth nightly. Med List Clean up - No Rx eCancel Message Sent 02/26/2023 02/22/2024 amLODIPine (NORVASC) 10 MG tabletIndications:Hyper tension Take 1 tablet by mouth daily. Stop Taking at Discharge 02/27/2023 02/23/2024 isosorbide mononitrate (IMDUR) 30 MG 24 hr tabletIndications:Stabl e Angina Pectoris Take 1 tablet by mouth daily. Stop Taking at Discharge 02/27/2023 02/23/2024 clopidogrel (PLAVIX) 75 MG tablet Take 75 mg by mouth daily. 01/22/2024 02/24/2024 documented as of this encounter Historical Medications * This list may reflect changes made after this encounter. Medication Sig Dispensed Refills Start Date End Date ranolazine (RANEXA) 500 MG 12 hr tablet Take 500 mg by mouth in the morning and 500 mg in the evening. 01/21/2024 ezetimibe (ZETIA) 10 MG tablet Take 10 mg by mouth at bedtime. 11/11/2023 atorvastatin (LIPITOR) 80 MG tablet Take 80 mg by mouth at bedtime. 01/22/2024 pantoprazole (PROTONIX) 40 MG tablet Take 40 mg by mouth daily. 02/22/2024 losartan (COZAAR) 50 MG tablet Take 100 mg by mouth daily. 01/22/2024 04/05/2024 clopidogrel (PLAVIX) 75 MG tablet Take 75 mg by mouth daily. 01/22/2024 02/24/2024 added in this encounter Active and Recently Administered Medications Times are shown in WRAPPER OPERATOR. Scheduled Medication Order 02/22/2024 02/23/2024 02/24/2024 amLODIPine (NORVASC) tablet 10 mg 10 mg DAILY, Oral, First dose on Wed02/23/24 at 0900, Avoid co-administration with grapefruit juice., On hold since Wed02/23/2024 at 0913 until manually unheld 0913 (Held by provider - Provider: Christy Gonzalez [...] at 0900, Do not crush or chew. 08 (Given - Provider: Raisa Howard RN) 0904 (Given - Provider: Alexa Majano, LEIF) atorvastatin (LIPITOR) tablet 80 mg 80 mg AT BEDTIME, Oral, First dose on Wed02/22/24 at 2100, Avoid co-administration with grapefruit juice. 2031 (Given - Provider: Jessica Stauffer RN) 2101 (Given - Provider: Jessica Stauffer RN) carvedilol (COREG) tablet 12.5 mg 12.5 mg [...] RN) 131 (Given - Provider: Edilma Almaguer RN)2102 (Given - Provider: Jessica Stauffer RN) 0904 [...] 0904 (Given - Provider: Alexa Majano RN) escitalopram (LEXAPRO) tablet 20 mg 20 mg DAILY, Oral, First dose on Wed02/23/24 at 0900 0807 (Given - Provider: Raisa Howard RN) 0904 (Given - Provider: Alexa Majano RN) ezetimibe (ZETIA) tablet 10 mg 10 mg AT BEDTIME, Oral, First dose on Wed02/22/24 at 2100 203 (Given - Provider: Jessica Stauffer RN) 2103 [...] Light * 1253 (Given - Provider: Virginie Richmond RN) labetalol (NORMODYNE) injection 10 mg (COMPLETED) 10 mg ONCE, Intravenous, On Wed02/22/24 at 1413, For 1 dose, Monitor BP / Check apical pulse prior to giving dose. Do NOT hold dose prior to surgery without a physician order. IV Push Administration Rate: 10 mg/min. * Protect from Light * 1417 (Given - Provider: Virginie Richmond RN) LORazepam (ATIVAN) tablet 1 mg (COMPLETED) 1 mg ONCE, Oral, On Wed02/22/24 at 1326, For 1 dose 1403 (Given - Provider: Virginie Richmond RN - Comment: Ryland Permit Review Assistant student) Magnesium Standard Replacement Protocol Administer magnesium per [facility] approved protocol. nicotine (NICODERM) 21 MG/24HR patch [...] (Levels 3.5 and lower) Administer potassium per [facility] approved protocol for levels of 3.5 mEq/L [...] 2036 (Given - Provider: Jessica Stauffer RN) 131 (Given - Provider: Edilma Almaguer RN)2102 (Given - Provider: Jessica Stauffer RN) 0904 (Given - Provider: Alexa Majano, LEIF) sodium chloride 0.9 % injection 2 mL 2 mL EVERY 12 HOURS SCHEDULED (2 times per day), Intracatheter, First dose on Wed02/22/24 at 1344 1944 (Given - Provider: Shannan Brooks RN)203 (Given - Provider: Jessica Stauffer RN) 0900 (Given - Provider: Raisa Howard, LEIF)210 (Given - Provider: Jessica Stauffer RN) 0905 (Given - Provider: Alexa Majano, LEIF) spironolactone (ALDACTONE) tablet 25 mg 25 mg DAILY, Oral, First dose on Wed02/23/24 at 0900 1312 (Given - Provider: Edilma Almaguer RN) 0904 (Given - Provider: Alexa Majano, LEIF) PRN Medication Order 02/22/2024 02/23/2024 [...] at 1806, If an IV and an oral/MS medication are ordered PRN for the same pain severity, administer IV only if patient is NPO/if oral is not tolerated. 1842 (Given - Provider: Shannan Brooks RN) 0352 (Given - Provider: Martin Lisa RN)1042 (Given - Provider: Raisa Howard RN) sodium chloride (NORMAL SALINE) 0.9 % bolus 500 mL 500 mL PRN, Intravenous, Administer over 30 Minutes, Other, Symptomatic hypotension, SBP less than 90 mmHg, Starting on Wed02/22/24 at 1752, Unless patient is actively being treated for CHF. 2243 (New Bag - Provider: Jessica Stauffer RN)2315 (Completed - Provider: Jessica Stauffer RN) sodium chloride 0.9 % injection 10 mL 10 mL PRN, Intravenous, Flush, Starting on Wed02/22/24 at 1143, To flush tubing following intermittent infusions. documented in this encounter Orders Medications Ordered That Lyndon ht Not Have Been Administered Count Last Ordered Date First Ordered Date amLODIPine (NORVASC) tablet 10 mg 1 024 aspirin chewable 324 mg 1 02/22/2024 heparin (porcine) injection 5,000 Units 1 1 04/23/2023 isosorbide mononitrate (IMDU R) ER tablet 30 mg 1 02/22/2024 losartan (COZAAR) tablet 50 mg 1 02/22/2024 Magnesium Standard Replacement Protocol 1 1 04/23/2023 nicotine (NICODERM) 14 MG/24 HR patch 1 patch 1 02/22/2024 Potassium Replacement (Levels 3.6 - 4) 1 Potassium Standard Replaceme nt Protocol (Levels 3.5 and lower) 1 02/22/2024 sodium chloride 0.9 % injection 10 mL 1 Lab Orders Without Results Count Last Ordered D ate First Ordered Date POCT ISTAT 8 1 02/22/2024 POCT TROPONIN 1 02/22/2024 Consult Count Last Ordered Date First Orde red Date IP CONSULT TO PSYCHIATRY 1 02/22/2024 Admission Count Last Ordered Date First Orde red Date ADMIT STATUS CHANGE (PATIENT CLASS CHANGE) - OBSERVATION 1 02/22/2024 ASSIGN TO OBSERVATION 1 02/22/2024 Discharge Count Last Ordered Date First Orde red Date DISCHARGE PATIENT 1 02/23/2024 Nursing Count Last Ordered Date First Orde red Date CARDIAC MONITORING 1 02/22/2024 PULSE OX IP - NURSING 1 02/22/2024 PULSE OXIMETRY 1 02/22/2024 VITAL SIGNS (ED) 1 02/22/2024 Telemetry Count Last Ordered Date First Orde red Date TELEMETRY MONITORING 1 02/22/2024 documented in this encounter Additional Health Concerns Assessment Noted Time PHQ-9 Depression Total Score: 17 024 8:08 PM WRAPPER 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
--- OUTSIDE RECORDS SUMMARY | 2024-04-09 16:18 | XMS_ITS | Encounter Summary ---
Author Organization [facility] Address [address] [place] [address] Care Team Providers Care Inspector Balance Wheel Motion Name Role Phone Christy Gonzalez MD Primary Care Provider [phone] Abbey Castano Unavailable Unavailable Encounter Details Date Type Department Care Team ([facility] st Contact Info) Description 03/14/[address] [facility] A Building [address] [place] [phone] Abbey Castano, INTERNATIONAL TRAVEL CONSULTANT Social History Tobacco Use Types Packs/Day Years [...] phone, visiting friends or family, going to mandaen or club meetings) Patient declined 02/23/2024 Alcohol [...] No 02/22/2024 documented as of this encounter Miscellaneous Notes * Telephone Encounter - Abbey Castano, KANIKA - 03/14/2024 1:57 PM CST Type of Encounter: Follow-up Call completed with: Patient Issues addressed: Care Coordination and Emotional Health / Coping / Stress Progress Notes: TEDDY spoke to patient this date. Patient stated he is doing ok, but is currently fighting a cold. Patient with multiple questions regarding fluid in his lungs. Patient recently was in the hospital in [place]. TEDDY explained food writer is unable to answer his medical questions but encouragedhim to call his PCP office to get answers. Patient confirmed he would do so and explained that he is on his way home from [place]. TEDDY asked patient how his call with Dr. Solis went this date. Patient stated it went well and that he was advised to find a telephonic provider to assist with processing his PTSD symptoms, specifically his sleep concerns. TEDDY explained this food writer could place a [facility] referral to assist with such. Patient agreeable to this, referral placed this date. Patient had no further questions or concerns for SW at this time. TEDDY explained food writer will call in about 3 weeks due to upcoming holidays, but confirmed patient can contact this food writer sooner if need arises. Resources Provided? Yes If Yes, what resources were provided? [facility] referral. Social Work goal/plan reviewed: Patient agrees with the Social Work goal/plan of care and call follow-up plan. Next encounter: Within 2-3 weeks to follow up on BH plan and possible plan for closure. IST MANAGER documented in this encounter Plan of Treatment Upcoming Encounters Date Type Department Care Team (Late st Contact Info) Description 07/05/2024 4:15 PM CDT Office Visit [facility] [address] [place] [address] Bal Mayen MD [address] [place] [address] documented as of this encounter Goals Goal Patient Goal Type Associated Problems Recent Progress Patient-Stated? Author Advance Directives General Yes Abbey Castano MSW Note: Honoring Choices document sent 02/03 documented as of this encounter Visit Diagnoses Not on filedocumented in this encounter Additional Health Concerns Assessment Noted Time PHQ-9 Depression Total Score: 17 024 8:08 PM FLORIST MANAGER documented as of this encounter Care Teams Inspector Balance Wheel Motion Relationship Specialty Start Date End Date Christy Gonzalez MD [address] [facility] [address] [place] [address] PCP - General Internal Medicine 12/21/22 Abbey Castano MSW Mining Support Worker - Population Health Social Work 01/28/24 documented as of this encounter
--- OUTSIDE RECORDS SUMMARY | 2024-04-09 16:18 | XMS_ITS | Encounter Summary ---
Author Organization [facility] Address [address] [place] [address] Care Team Providers Care Supervisor Bridges And Buildings Name Role Phone Christy Gonzalez MD Primary Care Provider [phone] Abbey Castano MSW Unavailable Unavailable Reason for Visit * Reason Comments [facility] Outreach 1 Encounter Details Date Type Department Care Team (Late st Contact Info) Description 02/26/2024 Telephone Population Health Care Transitions [address] [place] [address] Provider, Population Health Support [facility] Outreach 1 Social History Tobacco Use Types Packs/Day Years [...] phone, visiting friends or family, going to orthodox or club meetings) Patient declined 02/23/2024 Alcohol [...] Description 07/05/2024 4:15 PM CDT Office Visit [facility] [address], [facility] [address] [address] Bal Mayen MD [address] [address] documented as of this encounter Goals Goal Patient Goal Type Associated Problems Recent Progress Patient-Stated? Author Advance Directives General Yes Abbey Castano, MACHINE INSTALLER Note: Honoring [employer] document sent 02/03 documented as of this encounter Visit Diagnoses Not on filedocumented in this encounter Additional Health Concerns Assessment Noted Time PHQ-9 Depression Total Score: 17 024 8:08 PM FILLER PICKER documented as of this encounter Care Teams Supervisor Bridges And Buildings Relationship Specialty Start Date End Date Christy Gonzalez MD [address] [facility] [address] [place] [address] PCP - General Internal Medicine 12/21/22 Abbey Castano MSW Oil Prospecting Observer - Population Health Social Work 01/28/24 documented as of this encounter
--- OUTSIDE RECORDS SUMMARY | 2024-04-09 16:18 | XMS_ITS | Encounter Summary ---
Author Organization [facility] Address [address] [place] [address] Care Team Providers Care Associate Attorney Name Role Phone Christy Gonzalez MD Primary Care Provider [phone] Abbey Castano MSW Unavailable Unavailable Reason for Visit * Reason Comments [facility] Outreach 1 Encounter Details Date Type Department Care Team (Late st Contact Info) Description 02/26/2024 Telephone Population Health Care Transitions [address] [place] [address] Provider, Population Health Support [facility] Outreach 1 Social History Tobacco [...] Description 07/05/2024 4:15 PM CDT Office Visit [facility] [address], [facility] [address] [address] Bal Mayen MD [address] [address] documented as of this encounter Goals Goal Patient Goal Type Associated Problems Recent Progress Patient-Stated? Author Advance Directives General Yes Abbey Castano, FULL STACK SOFTWARE DEVELOPER Note: Honoring [employer] document sent 02/03 documented as of this encounter Visit Diagnoses Not on filedocumented in this encounter Additional Health Concerns Assessment Noted Time PHQ-9 Depression Total Score: 17 024 8:08 PM BLOCK OPERATOR documented as of this encounter Care Teams Associate Attorney Relationship Specialty Start Date End Date Christy Gonzalez MD [address] [facility] [address] [place] [address] PCP - General Internal Medicine 12/21/22 Abbey Castano MSW Blocker Metal Base - Population Health Social Work 01/28/24 documented as of this encounter
--- OUTSIDE RECORDS SUMMARY | 2024-04-09 16:18 | XMS_ITS | Encounter Summary ---
Author Organization [facility] Address [address] [place] [id number] Care Team Providers Care Diamond Broker Name Role Phone Christy Gonzalez MD Primary Care Provider [phone] Abbey Castano [facility] Unavailable Unavailable Reason for Referral * Consult & Treatment (Routine) - Closed Specialty Diagnoses / Procedures Referred By Kacey t Referred To Contact Diagnoses Nonspecific chest pain Hayden Carver DO [address] [place] [address] Bal Mayen MD [address] [address] Referral ID Status Reason Start Date Expiration Date Visits Re quested Visits Authorized [id number] Closed 04/01/2024 04/01/2025 1 1 Question Answer Indicate Service Requested Consult Specialty: General Cardiology Comments Seen in ER for chest pain, able to be discharged. Looking to arrange follow up N UP PERSON Reason for Visit * Reason Comments Chest Pain Encounter Details Date Type Department Care Team (Late st Contact Info) Description 03/31/2024 9:12 PM CLEAN UP PERSON - 04/01/2024 2:12 AM CLEAN UP PERSON Emergency [facility] Emergency Services [address] [place] [id number] Hayden Carver DO [address] [place] [address] Bekah Cortes RN Nonspecific chest pain (Primary Dx) Discharge [...] In the past 12 months has e [employer], gas, oil, or water [employer]: [employer] threatened to shut off services in your [...] phone, visiting friends or family, going to mu-ism or club meetings) Patient declined 02/23/2024 Alcohol [...] harm? Never 03/31/2024 How often does anyone, sen [...] Comments Blood Pressure 184/112 04/01/2024 2:00 AM CLEAN UP PERSON Pulse 82 04/01/2024 2:00 AM CLEAN UP PERSON Temperature 36.2 C (97.2 F) 03/31/2024 9:17 PM CLEAN UP PERSON Respiratory Rate 20 04/01/2024 1:58 AM CLEAN UP PERSON Oxygen Saturation 98% 04/01/2024 2:00 AM CLEAN UP PERSON Inhaled Oxygen Concentration - - Weight 112.8 kg (248 lb 10.9 oz) 03/31/2024 9:17 PM CLEAN UP PERSON Height 177.8 cm (5' 10) 03/31/2024 9:17 PM CLEAN UP PERSON Body Mass Index 35.68 03/31/2024 9:17 PM CLEAN UP PERSON documented in this encounter Functional Status Functional [...] through Care Everywhere. * Chest Pain, Noncardiac (Barb[place]) documented in this encounter Medications at Time [...] [facility] documented in this encounter ED Notes [...] but has not taken his dose tonight. N UP PERSON * Hayden Carver DO - 03/31/2024 9:11 PM CST Patient : Johnny Garnett Age: [age] year old Sex: male Encounter Date: 03/31/2024 History Chief Complaint Patient presents with Chest Pain 53 yo M, hx of CAD, previous CABG and more recently PCI presenting for chest pain. Two weeks of persistent chest tightness. No exacerbating or alleviating factors. Has been compliant w medications. Also having high bp at home checks. No back pain, paresthesias, no sig sob. Pain not sudden in onset,steady for two weeks. Has been seen several times for simillar sx at outside ER's and had recent nuclear stress that showed no reversible ischemia. This was all within last month. Allergies Allergen Reactions Statins MYALGIA Added per MD notation that he cannot tolerate statins for treatment Pollen Discharge Medication List as of 04/01/2024 1:54 AM Prior to Admission Medications Details QUEtiapine (SEROquel) 50 MG tablet Take 1 tablet by mouth at bedtime. Indications: Manic-DepressionEprescribe, Disp-90 tablet, R-3 escitalopram (LEXAPRO) 20 MG tablet Take 1 tablet by mouth daily. Indications: Obsessive CompulsiveDisorderEprescribe, Disp-90 tablet, R-3 ARIPiprazole (ABILIFY) 10 MG tablet Take 1 tablet by mouth daily. Indications: MIXED BIPOLAR AFFECTIVE DISORDEREprescribe, Disp-90 tablet, R-3 clopidogrel (PLAVIX) 75 MG tablet Take 1 tablet by mouth daily.Eprescribe, Disp- 90 tablet, R-3 atorvastatin (LIPITOR) 80 MG tablet Take 80 mg by mouth at bedtime.Historical Med ezetimibe (ZETIA) 10 MG tablet Take 10 mg by mouth at bedtime.Historical Med losartan (COZAAR) 50 MG tablet Take 50 mg by mouth daily.Historical Med ranolazine (RANEXA) 500 MG 12 hr tablet Take 500 mg by mouth in the morning and 500 mg in the evening.Historical Med albuterol (ProAir HFA) 108 (90 Base) MCG/ACT inhaler Inhale 2 puffs into the lungs every 4 hours asneeded for Shortness of Breath or Wheezing.Eprescribe, Disp-8.5 g, R-1 aspirin (ECOTRIN) 81 MG EC tablet Take 1 tablet by mouth daily.Eprescribe, Disp- 15 tablet, R-1 carvedilol (COREG) 12.5 MG tablet Take 1 tablet by mouth every 12 hours.Eprescribe, Disp-30 tablet,R-1 hydroCORTisone (CORTIZONE) 1 % cream Apply topically 2 times daily as needed (rash).Disp-28 g, R-0,Eprescribe spironolactone (ALDACTONE) 25 MG tablet Take 1 tablet by mouth daily.Eprescribe, Oral, DAILY, Disp-15 tablet, R-1Consider prescribing in whole tablet strengths, as the tablets can be difficult to break (depends on product carried by the receiving pharmacy). 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 05/15/2016 Atypical chest pain Bronchial asthma (CMD) Carpal tunnel syndrome on both sides Chronic low back pain Cocaine abuse (CMD) Congestive cardiac failure (CMD) Coronary artery disease involving re[place]sp[place] coronary artery of re[place]sparks heart with angina pectoris (CMD) Dyslipidemia Gastroesophageal [...] collapse Past Surgical History: Procedure Laterality Date CARDIAC SURGERY 04/13/2022 myocardial revascularization Family History Problem Relation [...] week Types: Cocaine Comment: last use Feb E-cigarette/Vaping E-Cigarette/Vaping Use Never Used Passive Exposure No Counseling Given No E-Cigarette/Vaping Substances & Devices Nicotine No THC No CBD No Flavoring No Disposable No Pre-filled or Refillable Cartridge No Refillable Tank No Pre-filled Pod No Review of Systems Constitutional: Negative for chills, fatigue and fever. HENT: Negative for congestion, rhinorrhea and sore throat. Respiratory: Positive for chest tightness. Negative for cough and shortness of breath. Cardiovascular: Positive for chest pain. Negative for leg swelling. Gastrointestinal: Negative for abdominal distention, abdominal pain, diarrhea, nausea and vomiting. Genitourinary: Negative for difficulty urinating, dysuria and frequency. Musculoskeletal: Negative for arthralgias. Skin: Negative for pallor and rash. Neurological: Negative for dizziness, light-headedness and headaches. Physical Exam ED Triage Vitals [03/31/242116] ED Triage Vitals Group Temp 97.2 ??F (36.2 ??C) Heart Rate 81 Resp 18 BP (!) 235/109 SpO2 99 % EtCO2 mmHg Height 5' 10 (1.778 m) Weight 248 lb 10.9 oz (112.8 kg) Weight Scale Used Scale in bed BMI (Calculated) 35.68 IBW/kg (Calculated) 73 Physical Exam Vitals and nursing note reviewed. Constitutional: General: He is not in acute distress. Appearance: Normal appearance. He is not ill-appearing. HENT: Head: Normocephalic and atraumatic. Nose: Nose normal. Mouth/Throat: Mouth: Mucous membranes are moist. Eyes: Extraocular Movements: Extraocular movements intact. Conjunctiva/sclera: Conjunctivae normal. Cardiovascular: Rate and Rhythm: Normal rate and regular rhythm. Pulses: Normal pulses. Heart sounds: Normal heart sounds. No murmur heard. Pulmonary: Effort: Pulmonary effort is normal. No respiratory distress. Breath sounds: Normal breath sounds. No stridor. No wheezing, rhonchi or rales. Abdominal: General: There is no distension. Palpations: Abdomen is soft. Tenderness: There is no abdominal tenderness. There is no guarding or rebound. Musculoskeletal: General: Normal range of motion. Cervical back: Normal range of motion. Skin: General: Skin is warm and dry. Capillary Refill: Capillary refill takes less than 2 seconds. Coloration: Skin is not pale. Neurological: General: No focal deficit present. Mental Status: He is alert and oriented to person, place, and time. Psychiatric: Mood and Affect: Mood normal. ED Course Procedures Lab Results Results for orders placed or performed during the hospital encounter of 03/31/24 Comprehensive Metabolic Panel Specimen: Blood, Venous Result Value Ref Range Fasting Status Sodium 138 135 - 145 mmol/L Potassium 4.1 3.4 - 5.1 mmol/L Chloride 102 97 - 110 mmol/L Carbon Dioxide 25 21 - 32 mmol/L Anion Gap 15 7 - 19 mmol/L Glucose 93 70 - 99 mg/dL BUN 16 6 - 20 mg/dL Creatinine 0.80 0.67 - 1.17 mg/dL Glomerular Filtration Rate >90 >=60 BUN/Cr 20 7 - 25 Calcium 8.8 8.4 - 10.2 mg/dL Bilirubin, Total 0.2 0.2 - 1.0 mg/dL GOT/AST 26 <=37 Units/L GPT/ALT 46 <64 Units/L Alkaline Phosphatase 110 45 - 117 Units/L Albumin 3.6 3.4 - 5.0 g/dL Protein, Total 8.0 6.4 - 8.2 g/dL Globulin 4.4 (H) 2.0 - 4.0 g/dL A/G Ratio 0.8 (L) 1.0 - 2.4 Lipase Specimen: Blood, Venous Result Value Ref Range Lipase 45 15 - 77 Units/L Prothrombin Time (INR/PT) Specimen: Blood, Venous Result Value Ref Range Protime- PT 10.4 9.7 - 11.8 sec INR 1.0 Partial Thromboplastin Time (PTT) Specimen: Blood, Venous Result Value Ref Range PTT 38 (H) 22 - 32 sec TROPONIN I, HIGH SENSITIVITY Specimen: Blood, Venous Result Value Ref Range Troponin I, High Sensitivity 20 <77 ng/L D Dimer, Quantitative Specimen: Blood, Venous Result Value Ref Range D Dimer, Quantitative 0.41 <0.57 mg/L (FEU) CBC with Automated Differential (performable only) Specimen: Blood, Venous Result Value Ref Range WBC 9.2 4.2 - 11.0 K/mcL RBC 5.49 4.50 - 5.90 mil/mcL HGB 15.2 13.0 - 17.0 g/dL HCT 45.9 39.0 - 51.0 % MCV 83.6 78.0 - 100.0 fl MCH 27.7 26.0 - 34.0 pg MCHC 33.1 32.0 - 36.5 g/dL RDW-CV 12.9 11.0 - 15.0 % RDW-SD 38.7 (L) 39.0 - 50.0 fL PLT 361 140 - 450 K/mcL NRBC 0 <=0 /100 WBC Neutrophil, Percent 57 % Lymphocytes, Percent 30 % Brule, Percent 8 % Eosinophils, Percent 3 % Basophils, Percent 1 % Immature Granulocytes 1 % Absolute Neutrophils 5.4 1.8 - 7.7 K/mcL Absolute Lymphocytes 2.7 1.0 - 4.0 K/mcL Absolute Monocytes 0.7 0.3 - 0.9 K/mcL Absolute Eosinophils 0.2 0.0 - 0.5 K/mcL Absolute Basophils 0.1 0.0 - 0.3 K/mcL Absolute Immature Granulocytes 0.1 0.0 - 0.2 K/mcL Light Green Top Specimen: Blood, Venous Result Value Ref Range Extra Tube Hold for Add Ons Gold Top Specimen: Blood, Venous Result Value Ref Range Extra Tube Hold for Add Ons Bae Top Tube Specimen: Blood, Venous Result Value Ref Range Extra Tube Hold for Add Ons TROPONIN I, HIGH SENSITIVITY Specimen: Blood, Venous Result Value Ref Range Troponin I, High Sensitivity 17 <77 ng/L EKG Results EKG Interpretation Rate: 79 Rhythm: normal sinus rhythm Abnormality: sinus w PAC's , no st elevation or depression. No change from prev. Per my review of the EKG, my findings are documented above, pending cardiology for final interpretation. EKG tracing interpreted by ED physician Radiology Results Imaging Results XR CHEST AP OR PA (Final result) Result time 03/31/24 22:14:45 Final result Impression: IMPRESSION: No acute cardiopulmonary disease. Electronically Signed by: Daniel Dawkins MD Signed on: 03/31/2024 10:14 PM Created on Workstation ID: [id number] Signed on Workstation ID: [id number] Narrative: EXAM: XR CHEST AP OR PA DATE: 03/31/2024 9:36 PM COMPARISON: 02/22/2024 and earlier. Manifestations of cardiac surgery are redemonstrated. CLINICAL HISTORY: central chest pain FINDINGS: The lungs are clear of infiltrate. There are no pleural effusions. The heart size is normal. The aorta is tortuous and demonstrates atherosclerotic calcifications. Manifestations of cardiac surgery are redemonstrated. The bony structures are unremarkable. ED Medication Orders (From admission, onward) Ordered Start Status Ordering Provider 04/01/24 0129 04/01/24 0130 hydrALAZINE (APRESOLINE) injection 10 mg ONCE Last MAY action: Given BASHOR, HAYDEN 04/01/24 0015 04/01/24 0016 alum-mag hydroxide+simethicone/lidocaine viscous (2:1) (MAGIC MOUTHWASH/GI COCKTAIL) (compounded) oral suspension 15 mL ONCE Last MAY action: Given HAYDEN CARVER 03/31/24225103/31/242252 ketorolac (TORADOL) injection 15 mg ONCE Last MAY action: Given HAYDEN CARVER 03/31/24220203/31/242203 hydrALAZINE (APRESOLINE) injection 10 mg ONCE Last MAY action: Given HAYDEN CARVER 03/31/24213303/31/242134 aspirin chewable 324 mg ONCE Last MAY action: Given HAYDEN CARVER 03/31/24213303/31/242134 nitroGLYCERIN (NITROSTAT) sublingual tablet 0.4 mg ONCE Last MAY action: Given HAYDEN CARVER ED Course as of 04/02/24 1028 WedMar 31, [id number] Chart review from outside records from 03/24/2024, history of coronary disease with previous CABG, PCI in 01/19. Had nuclear medicine stress test 03/12/2024 with no evidence of ischemia. On aspirin 81, Plavix, spironolactone [BB] 2308 DDIMER, QUANTITATIVE: 0.41 [BB] 2308 WBC: 9.2 [BB] 2309 HGB: 15.2 [BB] 2311 Troponin I, High Sensitivity: 20 [BB] 2317 TOTAL BILIRUBIN: 0.2 [BB] 2317 AST/SGOT: 26 [BB] 2317 ALT/SGPT: 46 [BB] 2317 ALK PHOSPHATASE: 110 [BB] ED Course User Index [BB] Hayden Carver DO Medical Decision Making 53 yo M, hx of CAD, previous CABG and more recently PCI presenting for chest pain. Two weeks of persistent chest tightness. No exacerbating or alleviating factors. Has been compliant w medications. Also having high bp at home checks. No back pain, paresthesias, no sig sob. Pain not sudden in onset,steady for two weeks. Has been seen several times for simillar sx at outside ER's and had recent nuclear stress that showed no reversible ischemia. This was all within last month. Well appearing on exam, noted elevated bp. Bening PE. Mild epigastric pain, no isolated RUQ pain. Equal pulse in all ext. Labs and imagning obtained. Tro pneg x2. EKG nsr w no ischemic changes x2. Dimer neg. Cxr clear. Bp improved w medications in the ED. CP resolved here in ED. Discussed need of follow up with pcp regarding bp medications. He had apt yesterday but did not make it. Will call on Wednesday to reschedule.Service to cardiology ordered for follow up as well. Although sig cardiac hx, given negative workuptoday, improved sx, neg recent nuclear stress, ok for DC at this time. Clinical Impression ED Diagnosis 1. Nonspecific chest pain SERVICE TO CARDIOLOGY Disposition Discharge 04/01/2024 1:53 AM Johnny Garnett discharge to home/self care. Hayden Carver DO 04/02/24 1028 N UP PERSON documented in this encounter Plan of Treatment Upcoming Encounters Date Type Department Care Team (Late st Contact Info) Description 07/05/2024 4:15 PM CDT Office Visit [facility] [address] [address] Bal Mayen MD [address] [address] Scheduled Referrals Name Type Priority Associated Diagnoses Orde r Schedule SERVICE TO CARDIOLOGY Referral Routine Nonspecific chest pain Ordered: 04/01/2024 documented as of this encounter Goals Goal Patient Goal Type Associated Problems Recent Progress Patient-Stated? Author Advance Directives General Yes Abbey Castano, [employer] Note: [employer] document sent 02/03 documented as of this encounter Procedures Procedure Name Priority Date/Time Associated Diagnosis Comments TROPONIN I, HIGH SENSITIVITY STAT 04/01/2024 12:56 AM CLEAN UP PERSON ELECTROCARDIOGRAM 12-LEAD STAT 2024 12:47 AM CLEAN UP PERSON EXTRA TUBES Routine 03/31/2024 10:51 PM CLEAN UP PERSON TROPONIN I, HIGH SENSITIVITY STAT 03/31/2024 10:44 PM CLEAN UP PERSON CBC WITH DIFFERENTIAL STAT 03/31/2024 10:44 PM CLEAN UP PERSON RAINBOW DRAW STAT 03/31/2024 10:44 PM CLEAN UP PERSON CBC WITH AUTOMATED DIFFERENTIAL (PERFORMABLE ONLY) STAT 03/31/2024 10:44 PM CLEAN UP PERSON PARTIAL THROMBOPLASTIN TIME STAT 03/31/2024 10:44 PM CLEAN UP PERSON PROTHROMBIN TIME (INR/PT) STAT 2024 10:44 PM CLEAN UP PERSON D DIMER, QUANTITATIVE STAT 03/31/2024 10:44 PM CLEAN UP PERSON LIPASE STAT 03/31/2024 10:44 PM CLEAN UP PERSON COMPREHENSIVE METABOLIC PANEL STAT 03/31/2024 10:44 PM CLEAN UP PERSON XR CHEST AP OR PA STAT 03/31/2024 9:5 7 PM CLEAN UP PERSON ELECTROCARDIOGRAM 12-LEAD STAT 2024 9:15 PM CLEAN UP PERSON documented in this encounter Results * TROPONIN I, HIGH SENSITIVITY (04/01/2024 12:56 AM CLEAN UP PERSON) Troponin I, High Sensitivity 17 <77 ng/L 04/01/2024 1:23 AM CLEAN UP PERSON [facility] Blood VENOUS BLOOD SPECIMEN / Unknown Venipuncture / Unknown 04/01/2024 12:56 AM CLEAN UP PERSON 04/01/2024 12:58 AM CLEAN UP PERSON Hayden Carver DO BKR LAB BLOOD ORDERA BLES [place] [id number] * ECG (04/01/2024 12:47 AM CLEAN UP PERSON) Systolic Blood Pressure 225 MUSE Diastolic Blood Pressure 89 MUSE Ventricular Rate EKG/Min (BPM) 66 MUSE Atrial Rate (BPM) 66 MUSE AL-Interval (MSEC) 152 MUSE QRS-Interval (MSEC) 82 MUSE QT-Interval (MSEC) 442 MUSE QTc 463 MUSE P [place] (Degrees) 60 MUSE R [place] (Degrees) 27 MUSE T [place] (Degrees) 66 MUSE REPORT TEXT Normal sinus rhythm Normal ECG When compared with ECG of 31-MAR-2024 21:15, premature atrial complexes are no longer present Confirmed by ASHU BLAKE, WALTER ([id number]) on 04/04/2024 10:25:47 AM MUSE 04/01/2024 12:4 7 AM CLEAN UP PERSON Hayden Bashor DO ECG ORDERABLES Performing Organization Address [facility] Co de Phone Number MUSE * Bae Top Tube (03/31/2024 10:51 PM CLEAN UP PERSON) Extra Tube Hold for Add Ons 04/01/2024 7:01 AM CLEAN UP PERSON [facility] Blood VENOUS BLOOD SPECIMEN / Unknown 03/31/2024 10:51 PM CLEAN UP PERSON 03/31/2024 10:51 PM CLEAN UP PERSON Hayden Bashor DO BKR LAB BLOOD ORDERA BLES Performing Organization Address [facility]/ZIP Co de Phone Number [address] [address] * Gold Top (03/31/2024 10:51 PM CLEAN UP PERSON) Extra Tube Hold for Add Ons 04/01/2024 7:01 AM CLEAN UP PERSON [facility] Blood VENOUS BLOOD SPECIMEN / Unknown 03/31/2024 10:51 PM CLEAN UP PERSON 03/31/2024 10:51 PM CLEAN UP PERSON Hayden Bashor DO BKR LAB BLOOD ORDERA BLES Performing Organization Address City/[facility]/ZIP Co de Phone Number [address] [place] [address] * Light Green Top (03/31/2024 10:44 PM CLEAN UP PERSON) [facility] Extra Tube Hold for Add Ons 04/01/2024 7:01 AM [facility] Blood VENOUS BLOOD SPECIMEN / Unknown Venipuncture / Unknown 03/31/2024 10:44 PM CLEAN UP PERSON 03/31/2024 10:52 PM CLEAN UP PERSON Hayden Carver DO BKR LAB [place] [address] * (ABNORMAL) CBC with Automated Differential (performable only) (03/31/2024 10:44 PM CLEAN UP PERSON) [facility] WBC 9.2 4.2 - 11.0 K/mcL 03/31/2024 10:52 PM [facility] RBC 5.49 4.50 - 5.90 mil/mcL 03/31/2024 10:52 PM [facility] HGB 15.2 13.0 - 17.0 g/dL 03/31/2024 10:52 PM [facility] HCT 45.9 39.0 - 51.0 % 03/31/2024 10:52 PM [facility] MCV 83.6 78.0 - 100.0 fl 03/31/2024 10:52 PM [facility] MCH 27.7 26.0 - 34.0 pg 03/31/2024 10:52 PM [facility] MCHC 33.1 32.0 - 36.5 g/dL 03/31/2024 10:52 PM [facility] RDW-CV 12.9 11.0 - 15.0 % 03/31/2024 10:52 PM [facility] RDW-SD 38.7(L) 39.0 - 50.0 fL 03/31/2024 10:52 PM [facility] PLT 361 140 - 450 K/mcL 03/31/2024 10:52 PM [facility] NRBC 0 <=0 /100 WBC 03/31/2024 10:52 PM [facility] Neutrophil, Percent 57 % 03/31/2024 10:52 PM [facility] Lymphocytes, Percent 30 % 03/31/2024 10:52 PM [facility] Brule, Percent 8 % 03/31/2024 10:52 PM [facility] Eosinophils, Percent 3 % 03/31/2024 10:52 PM [facility] Basophils, Percent 1 % 03/31/2024 10:52 PM [facility] Immature Granulocytes 1 % 03/31/2024 10:52 PM [facility] Absolute Neutrophils 5.4 1.8 - 7.7 K/mcL 03/31/2024 10:52 PM [facility] Absolute Lymphocytes 2.7 1.0 - 4.0 K/mcL 03/31/2024 10:52 PM [facility] Absolute Monocytes 0.7 0.3 - 0.9 K/mcL 03/31/2024 10:52 PM [facility] Absolute Eosinophils 0.2 0.0 - 0.5 K/mcL 03/31/2024 10:52 PM [facility] Absolute Basophils 0.1 0.0 - 0.3 K/mcL 03/31/2024 10:52 PM [facility] Absolute Immature Granulocytes 0.1 0.0 - 0.2 K/mcL 03/31/2024 10:52 PM [facility] Blood VENOUS BLOOD SPECIMEN / Unknown Venipuncture / Unknown 03/31/2024 10:44 PM CLEAN UP PERSON 03/31/2024 10:49 PM [facility] Narrative [facility] - 03/31/2024 10:52 PM [facility] This is an appended report. These results have been appended to a previously verified report. Hayden SCHMITTR LAB BLOOD ORDERA BLES [facility] [address] [place] [address] * D Dimer, Quantitative (03/31/2024 10:44 PM CLEAN UP PERSON) Pathologist [facility] D Dimer, Quantitative 0.41 <0.57 mg/L (FEU) 03/31/2024 11:07 PM CLEAN UP PERSON [facility] Blood VENOUS BLOOD SPECIMEN / Unknown Venipuncture / Unknown 03/31/2024 10:44 PM CLEAN UP PERSON 03/31/2024 10:49 PM CLEAN UP PERSON Narrative [facility] - 03/31/2024 11:07 PM CLEAN UP PERSON Values < 0.50 mg/L(FEU) may be useful to help exclude DVT or PE in patients at low clinical risk for these disorders. For patients above the age of 50, the [employer] recommends using age adjusted cutoff values. AGE X 0.01 calculates the age adjusted cutoff value in mg/L for these patient populations. Hayden Bashor DO BKR LAB BLOOD ORDERA BLES Performing Organization Address City/[facility]/[place]IP [place] [address] * TROPONIN I, HIGH SENSITIVITY (03/31/2024 10:44 PM CLEAN UP PERSON) Troponin I, High Sensitivity 20 <77 ng/L 03/31/2024 11:11 PM CLEAN UP PERSON [facility] Blood VENOUS BLOOD SPECIMEN / Unknown Venipuncture / Unknown 03/31/2024 10:44 PM CLEAN UP PERSON 03/31/2024 10:52 PM CLEAN UP PERSON Hayden Bashor DO BKR LAB BLOOD ORDERA BLES Performing Organization Address [facility]/[place]IP [place] [address] * (ABNORMAL) Partial Thromboplastin Time (PTT) (03/31/2024 10:44 PM CLEAN UP PERSON) PTT 38(H) 22 - 32 sec 03/31/2024 11:07 PM CLEAN UP PERSON [facility] Blood VENOUS BLOOD SPECIMEN / Unknown Venipuncture / Unknown 03/31/2024 10:44 PM CLEAN UP PERSON 03/31/2024 10:49 PM CLEAN UP PERSON Narrative [facility] - 03/31/2024 11:07 PM CLEAN UP PERSON PTT Therapeutic Range: 45-65 seconds. Hayden Bashor DO BKR LAB BLOOD ORDERA BLES Performing Organization Address [facility] [place] [address] * Prothrombin Time (INR/PT) (03/31/2024 10:44 PM CLEAN UP PERSON) Pathologist [facility] Protime- PT 10.4 9.7 - 11.8 sec 03/31/2024 11:07 PM CLEAN UP PERSON [facility] INR 1.0 03/31/2024 11:07 PM CLEAN UP PERSON [facility] Comment:INR Therapeutic Rang e: 2.0 to 3.0 (2.5 to 3.5 recommended for recurrent thrombotic episodes and mechanical prosthetic heart valves.) Blood VENOUS BLOOD SPECIMEN / Unknown Venipuncture / Unknown 03/31/2024 10:44 PM CLEAN UP PERSON 03/31/2024 10:49 PM CLEAN UP PERSON Hayden Bashor DO BKR LAB BLOOD ORDERA BLES Performing Organization Address [facility] [place] [address] * Lipase (03/31/2024 10:44 PM CLEAN UP PERSON) [facility] Lipase 45 15 - 77 Units/L 03/31/2024 11:11 PM CLEAN UP PERSON [facility] Blood VENOUS BLOOD SPECIMEN / Unknown Venipuncture / Unknown 03/31/2024 10:44 PM CLEAN UP PERSON 03/31/2024 10:52 PM CLEAN UP PERSON Hayden Bashor DO BKR LAB BLOOD ORDERA BLES Performing Organization Address [facility] [place] [address] * (ABNORMAL) Comprehensive Metabolic Panel (03/31/2024 10:44 PM CLEAN UP PERSON) Pathologist [facility] Fasting Status 03/31/2024 11:11 PM CLEAN UP PERSON [facility] Sodium 138 135 - 145 mmol/L 03/31/2024 11:11 PM CLEAN UP PERSON [facility] Potassium 4.1 3.4 - 5.1 mmol/L 03/31/2024 11:11 PM [facility] Chloride 102 97 - 110 mmol/L 03/31/2024 11:11 PM [facility] Carbon Dioxide 25 21 - 32 mmol/L 03/31/2024 11:11 PM [facility] Anion Gap 15 7 - 19 mmol/L 03/31/2024 11:11 PM [facility] Glucose 93 70 - 99 mg/dL 03/31/2024 11:11 PM [facility] BUN 16 6 - 20 mg/dL 03/31/2024 11:11 PM [facility] Creatinine 0.80 0.67 - 1.17 mg/dL 03/31/2024 11:11 PM [facility] Glomerular Filtration Rate >90 >=60 03/31/2024 11:11 PM [facility] Comment:eGFR results = or >6 0 mL/min/1.73m2 = Normal kidney function. Estimated GFR calculated using the CKD-EPI-R (2020) equation that does not include race in the creatinine calculation. BUN/Cr 20 7 - 25 03/31/2024 11:11 PM [facility] Calcium 8.8 8.4 - 10.2 mg/dL 03/31/2024 11:11 PM [facility] Bilirubin, Total 0.2 0.2 - 1.0 mg/dL 03/31/2024 11:11 PM [facility] GOT/AST 26 <=37 Units/L 03/31/2024 11:11 PM [facility] GPT/ALT 46 <64 Units/L 03/31/2024 11:11 PM [facility] Alkaline Phosphatase 110 45 - 117 Units/L 03/31/2024 11:11 PM [facility] Albumin 3.6 3.4 - 5.0 g/dL 03/31/2024 11:11 PM [facility] Protein, Total 8.0 6.4 - 8.2 g/dL 03/31/2024 11:11 PM [facility] Globulin 4.4(H) 2.0 - 4.0 g/dL 03/31/2024 11:11 PM [facility] A/G Ratio 0.8(L) 1.0 - 2.4 03/31/2024 11:11 PM CLEAN UP PERSON [facility] Blood VENOUS BLOOD SPECIMEN / Unknown Venipuncture / Unknown 03/31/2024 10:44 PM CLEAN UP PERSON 03/31/2024 10:52 PM CLEAN UP PERSON Hayden Bashor DO BKR LAB BLOOD ORDERA BLES [facility] [address] [place] [address] * XR CHEST AP OR PA (03/31/2024 9:57 PM CLEAN UP PERSON) Anatomical Region Laterality Modality Chest/Thorax N/A Digital Radiogra phy 03/31/2024 10:1 3 PM CLEAN UP PERSON Impressions 03/31/2024 10:14 PM CLEAN UP PERSON IMPRESSION: No acute cardiopulmonary disease. Electronically Signed by: Daniel Dawkins MD Signed on: 03/31/2024 10:14 PM Created on Workstation ID: [id number] Signed on Workstation ID: [id number] Narrative 03/31/2024 10:14 PM CLEAN UP PERSON EXAM: XR CHEST AP OR PA DATE: [...] 03/31/2024 10:14 PM Created on Workstation ID: [id number] Signed on Workstation ID: [id number] Hayden Mehul RICE IMG XR PROCEDURES * Electrocardiogram 12-Lead (03/31/2024 9:15 PM CLEAN UP PERSON) Systolic Blood Pressure 235 MUSE Diastolic Blood Pressure 109 MUSE Ventricular Rate EKG/Min (BPM) 79 MUSE Atrial Rate (BPM) 79 MUSE AL-Interval (MSEC) 140 MUSE QRS-Interval (MSEC) 82 MUSE QT-Interval (MSEC) 396 MUSE QTc 454 MUSE P [place] (Degrees) 63 MUSE R [place] (Degrees) 20 MUSE T [place] (Degrees) 72 MUSE REPORT TEXT Sinus rhythm with premature atrial complexes Otherwise normal ECG When compared with ECG of 22-FEB-2024 11:25, premature atrial complexes are now present Confirmed by ASHU BLAKE, WALTER ([id number]) on 04/04/2024 10:25:13 AM MUSE 03/31/2024 9:15 PM CLEAN UP PERSON Haydenmarshall Jaincarmen RICE ECG ORDERABLES MUSE documented in this encounter Visit Diagnoses Diagnosis Nonspecific chest pain- Primary Chest pain, unspecified [...] mL Magnesium-Aluminum hydroxide+Simethicone. Given 04/01/2024 12:26 AM CLEAN UP PERSON 15 mLs aspirin chewable 324 mg 324 mg ONCE, Oral, On Wed03/31/24 at 2135, For 1 dose Given 03/31/2024 9:48 PM CLEAN UP PERSON 324 mg hydrALAZINE (APRESOLINE) injection 10 mg 10 mg ONCE, Intravenous, On Wed03/31/24 at 2204, For 1 dose, * Do NOT Refrigerate * Given 03/31/2024 10:48 PM CLEAN UP PERSON 10 mg hydrALAZINE (APRESOLINE) injection 10 mg 10 mg ONCE, Intravenous, On 04/01/24 at 0130, For 1 dose, * Do NOT Refrigerate * Given 04/01/2024 1:33 AM CLEAN UP PERSON 10 mg ketorolac (TORADOL) injection 15 mg [...] from light * Given 03/31/2024 10:54 PM CLEAN UP PERSON 15 mg nitroGLYCERIN (NITROSTAT) sublingual tablet 0.4 mg 0.4 mg ONCE, Sublingual, On Wed03/31/24 at 2135, For 1 dose, Contact physician if chest pain unrelieved after 3 doses. Hold if SBP less than 90 mmHg or HR less than 50 BPM. Do NOT Crush or Chew. Given 03/31/2024 9:49 PM CLEAN UP PERSON 0.4 mg documented in this encounter Active and Recently Administered Medications Times are shown in CLEAN UP PERSON. Scheduled Medication Order 03/30/2024 03/31/2024 04/01/2024 alum-mag [...] mg (COMPLETED) 10 mg ONCE, Intravenous, On Wed04/01/24 at 0130, For 1 dose, * Do [...] Bekah Cortes RN) documented in this encounter Orders Nursing Count Last Ordered Date First Orde red Date CARDIAC MONITORING 03/31/2024 documented in this encounter Additional Health Concerns Assessment Noted Time PHQ-9 Depression Total Score: 17 024 8:08 PM CLEAN UP PERSON documented as of this encounter Care Teams Diamond Broker Relationship Specialty Start Date End Date Christy Gonzalez MD [address] [facility] [address] [place] [address] PCP - General Internal Medicine 12/21/22 Abbey Castano, SUPERVISOR WATER TREATMENT PLANT Ductfixing Plumber - Population Health Social Work 01/28/24 documented as of this encounter
--- OUTSIDE RECORDS SUMMARY | 2024-04-09 16:18 | XMS_ITS | Encounter Summary ---
Author Organization [facility] Address [address] [place] [address] Care Team Providers Care Replenishment Analyst Name Role Phone Blake Townsend MD Primary Care Provider [phone] Melvina Koch RN Unavailable [phone] Pcp, No Primary Care Provider UnavailChristy Elise MD Primary Care Provider [phone] Kiya Sequeira RN Unavailable Unavailable Abbey Castano SURGICAL PROCESSOR Unavailable Unavailable Encounter Details Date Type Department Care Team (Late st Contact Info) Description 04/11/2020 Prep for Case [facility] [address] [place] [address] Tiffany Jacobs MD [address] [place] [address] Syncope and collapse (Primary Dx) Social History Tobacco Use Types Packs/Day Years Used Date Smoking Tobacco: Every Day Cigarettes 0.5 30 Smokeless Tobacco: Never Comments:approx 1/2 pack/day Alcohol Use Standard Drinks/Week Comments No 0 (1 standard drink = 0.6 oz pur e alcohol) less than 3 times/year Inadequate Housing Answer Date Recorded Social Determinants: Housing (Overall Score Help er) 0 11/06/2018 Sex and Gender Information Value Date Recorded Sex Assigned at Not on file Gender Identity Not on file Sexual Orientation Not on file Job Start Date Occupation Industry Not on file Not on file Not on file documented as of this encounter Functional Status Functional Status Response Date of Assess ment ZZ Retired Are you deaf or d o you have serious difficulty hearing? No 09/30/2014 ZZ Retired Are you blind or do you have serious difficulty seeing, even when wearing glasses? No 10/01/19 15 ZZ Retired Do you have david us difficulty walking or climbing stairs? No 09/30/2014 ZZ Retired Do you have difficulty dressing or ba thing? No 09/30/2014 ZZ Retired Because of a phys ical, mental, or emotional condition, do you have difficulty doing errands alone? No 09/30/2014 Cognitive Status Response Date of Assessm ent ZZ Retired Because of a phys ical, mental, or emotional condition, do you have serious difficulty concentrating, remembering or making decisions? No 09/30/2014 documented as of this encounter Patient Instructions * Patient Instructions* Cali Dial RN - 04/11/2020 2:52 PM BACK HOE MACHINE OPERATOR You will not be required to stop any of your medications for this procedure. You may take all of your scheduled medications with small sips of water on the day of your procedure. HOE MACHINE OPERATOR documented in this encounter Plan of Treatment Upcoming Encounters Date Type Department Care Team (Late st Contact Info) Description 07/05/2024 4:15 PM CDT [facility] [address] [address] Bal Mayen MD [address] [address] documented as of this encounter Visit Diagnoses Diagnosis Syncope and collapse- Primary documented in this encounter Care Teams Replenishment Analyst Relationship Specialty Start Date End Date Blake Townsend MD [address] [place] [address] PCP - General Family Practice 05/27/11 06/28/22 Pcp, No PCP - General 09/04/22 12/20/22 Christy Gonzalez MD [address] [address] PCP - General Internal Medicine 12/21/22 Melvina Koch, RN Care Transitions Nurse Registered Nurse 04/14/22 Kiya Sequeira RN Specialty Economics Teacher Registered Nurse 01/17/24 4 Abbey Castano MSW Chemical Processing Technician - Population Health Social Work 01/28/24 documented as of this encounter
--- OUTSIDE RECORDS SUMMARY | 2024-04-09 16:18 | XMS_ITS | Encounter Summary ---
Author Organization [facility] Address [address] [place] [address] Care Team Providers Care Crate Icer Name Role Phone Pcp, No Primary Care Provider UnavailChristy Elise MD Primary Care Provider [phone] Kiya Sequeira RN Unavailable Unavailable Abbey Castano GAME WARDEN Unavailable Unavailable Reason for Visit * Reason Comments Refill Request Encounter Details Date Type Department Care Team (Late st Contact Info) Description 07/09/2022 Refill [facility] [address] [place], [place] [phone] Magaly Eller PA-C [address] [place], [place] [phone] Refill Request Social History Tobacco Use Types Packs/Day Years Used Date Smoking Tobacco: Every Day Cigarettes 1 30 Smokeless Tobacco: Never Comments:approx 1/pack/day Alcohol Use Standard Drinks/Week Comments No 0 (1 standard drink = 0.6 oz pur e alcohol) less than 3 times/year OASIS D0700: Social Isolation Answer Da te Recorded Frequency of experiencing loneliness or isolatio n Never 04/30/2022 OASIS A1250: Transportation Answer Date Recorded Lack of Transportation (Medical) No 04/30/2022 Lack of Transportation (Non-Medical) No 04/30/2022 Patient Unable or Declines to Respond No 04/30/2022 PHQ-2 Answer Date Recorded Initial depression screening score: 0 04/25/2022 PRAPARE - Transportation Answer Date Re corded In the past 12 months, has l ack of transportation kept you from medical appointments or from getting medications? No 03/30 In the past 12 months, has l ack of transportation kept you from meetings, work, or from getting things needed for daily living? No 04/25/2022 Interpersonal Safety Answer Date Record ed RETIRE In the past year, hav e you ever been physically hurt, threatened, controlled or made to feel afraid by someone close to you? No 04/25/2022 RETIRE Currently, are you in a relationship where you are being physically hurt, threatened, controlled or made to feel afraid? No 04/25/2022 Social Connections Answer Date Recorded How often do you see or talk to people that you care about and feel close to? (For example: talking to friends on the phone, visiting friends or family, going to yazdanism or club meetings) 1 or 2 times a week 04/25/2022 Alcohol Use Answer Date Recorded Audit C Total Score 0 04/25/2022 Financial Resource Strain Answer Date R ecorded In the past year, have you o r any family members you live with been unable to get any of the following when it was really needed? Check all that apply. None 04/25/2022 Food Insecurity Answer Date Recorded RETIRE How often in the past 12 months would you say you are worried or stressed about having enough money to buy nutritious meals? Rarely 04/25/2022 Inadequate Housing Answer Date Recorded Social Determinants: Housing (Overall Score Help er) 5 04/26/2022 Sex and Gender Information Value Date Recorded [...] y ou have serious difficulty hearing? No 04/25/2022 RETIRED Are you blind or do you have serious difficulty seeing, even when wearing glasses? No 04/25/2022 Do you have serious difficul ty walking or climbing stairs? No 04/25/2022 Do you have difficulty dressing or bathing? No 04/25/2022 Because of a physical, menta l, or emotional condition, do you have difficulty doing errands alone? No 04/25/2022 Cognitive Status Response Date of Assessm ent Because of a physical, menta l, or emotional condition, do you have serious difficulty concentrating, remembering or making decisions? No 04/25/2022 documented as of this encounter Plan of Treatment Upcoming Encounters Date Type Department Care Team (Late st Contact Info) Description 07/05/2024 4:15 PM CDT Office Visit [facility] [address] [place] [address] Bal Mayen MD [address] [place] [address] documented as of this encounter Visit Diagnoses Diagnosis Insomnia, unspecified type documented in this encounter Care Teams Crate Icer Relationship Specialty Start Date End Date Pcp, No PCP - General 09/04/22 12/20/22 Christy Gonzalez MD [address] [place] [address] PCP - General Internal Medicine 12/21/22 Kiya Sequeira, RN Specialty Slate Splitting Supervisor Registered Nurse 01/17/24 4 Abbey Castano, GAME WARDEN Sports Journalist - Population Health Social Work 01/28/24 documented as of this encounter
--- OUTSIDE RECORDS SUMMARY | 2024-04-09 16:18 | XMS_ITS | Encounter Summary ---
Author Organization [facility] Address [address] [place] [address] Care Team Providers Care Ornamental Rail Installer Name Role Phone Christy Gonzalez MD Primary Care Provider [phone] Abbey Castano Unavailable Unavailable Reason for Visit * Reason Comments [facility] Outreach 2 Encounter Details Date Type Department Care Team (Late Contact Info) Description 03/04/2024 Telephone Population Health Care Transitions [address] [place] [address] Provider, Population Health Support [facility]reach 2 Social History Tobacco Use Types Packs/Day Years [...] phone, visiting friends or family, going to evangelical or club meetings) Patient declined 02/23/2024 Alcohol [...] 4:15 PM CDT Office Visit [facility] [address] [address] Bal Mayen MD [address] [address] documented as of this encounter Goals Goal Patient Goal Type Associated Problems Recent Progress Patient-Stated? Author Advance Directives General Yes Abbey Castano, MACHINE OVERHAULER Note: Honoring Choices document sent 02/03 documented as of this encounter Visit Diagnoses Not on filedocumented in this encounter Additional Health Concerns Assessment Noted Time PHQ-9 Depression Total Score: 17 024 8:08 PM FORGING ENGINEER documented as of this encounter Care Teams Ornamental Rail Installer Relationship Specialty Start Date End Date Christy Gonzalez MD [address] [facility] [address] [place] [address] PCP - General Internal Medicine 12/21/22 Abbey Castano MSW Document Control Supervisor - Population Health Social Work 01/28/24 documented as of this encounter
--- OUTSIDE RECORDS SUMMARY | 2024-04-09 16:18 | XMS_ITS | Encounter Summary ---
Author Organization [facility] Address [address] [place] [address] Care Team Providers Care Hand Therapist Name Role Phone Christy Gonzalez MD Primary Care Provider [phone] Abbey Castano Unavailable Unavailable Encounter Details Date Type Department Care Team ([facility] st Contact Info) Description 02/29/2024 Case Management [facility], A Building [address] [place] [phone] Abbey Castano, STUDENT DEVELOPMENT SPECIALIST Social History Tobacco Use Types Packs/Day Years [...] or family, going to buddhist or club meetings) Patient declined 02/23/2024 Alcohol [...] Description 07/05/2024 4:15 PM CDT Office Visit [facility] [address] [address] aBl Mayen MD [address] [address] documented as of this encounter Goals Goal Patient Goal Type Associated Problems Recent Progress Patient-Stated? Author Advance Directives General Yes Abbey Castano, STUDENT DEVELOPMENT SPECIALIST Note: Honoring Choices document sent 02/03 documented as of this encounter Visit Diagnoses Not on filedocumented in this encounter Additional Health Concerns Assessment Noted Time PHQ-9 Depression Total Score: 17 024 8:08 PM LANDSCAPE CONTRACTOR documented as of this encounter Care Teams Hand Therapist Relationship Specialty Start Date End Date Christy Gonzalez MD [address] [facility] [address] [place] [address] PCP - General Internal Medicine 12/21/22 Abbey Castano MSW Sprinkler Repair Technician - Population Health Social Work 01/28/24 documented as of this encounter
--- OUTSIDE RECORDS SUMMARY | 2024-04-09 16:18 | XMS_ITS | Encounter Summary ---
Author Organization [facility] Address [address] [place] [address] Care Team Providers Care Forensic Ballistics Expert Name Role Phone Christy Gonzalez MD Primary Care Provider [phone] Abbey Castano MSW Unavailable Unavailable Reason for Visit * Reason Comments [facility] Outreach 1 Encounter Details Date Type Department Care Team (Late st Contact Info) Description 02/26/2024 Telephone Population Health Care Transitions [address] [place] [address] Provider, Population Health Support [facility] Outreach 1 Social History Tobacco [...] phone, visiting friends or family, going to episcopal or club meetings) Patient declined 02/23/2024 Alcohol [...] Description 07/05/2024 4:15 PM CDT Office Visit [facility] [address] [address] Bal Mayen MD [address] [address] documented as of this encounter Goals Goal Patient Goal Type Associated Problems Recent Progress Patient-Stated? Author Advance Directives General Yes Abbey Castano, COURT MANAGER Note: Honoring [employer] ([employer]) document sent 02/03 documented as of this encounter Visit Diagnoses Not on filedocumented in this encounter Additional Health Concerns Assessment Noted Time PHQ-9 Depression Total Score: 17 024 8:08 PM GAMEWELL OPERATOR documented as of this encounter Care Teams Forensic Ballistics Expert Relationship Specialty Start Date End Date Christy Gonzalez MD [address] [place] [address] PCP - General Internal Medicine 12/21/22 Abbey Castano MSW Cyber Operator - Population Health Social Work 01/28/24 documented as of this encounter
--- OUTSIDE RECORDS SUMMARY | 2024-04-09 16:18 | XMS_ITS | Encounter Summary ---
Author Organization [facility] Address [address] [place] [address] Care Team Providers Care Graphic Design Manager Name Role Phone Christy Gonzalez MD Primary Care Provider [phone] Kiya Sequeira RN Unavailable Unavailable Abbey Castano COO Unavailable Unavailable Encounter Details Date Type Department Care Team (Late st Contact Info) Description 01/18/2024 External Record Outside Facility Provider, Outside Social History Tobacco Use Types Packs/Day Years [...] Date Recorded Initial depression screening score: 3 02/21/2023 PRAPARE - Transportation Answer Date Re corded In the past 12 months, has l ack of transportation kept you from medical appointments or from getting medications? No 01/28 In the past 12 months, has l ack of transportation kept you from meetings, work, or from getting things needed for daily living? No 02/21/2023 Interpersonal Safety Answer Date Record ed RETIRE In the past year, hav e you ever been physically hurt, threatened, controlled or made to feel afraid by someone close to you? No 02/22/2023 RETIRE Currently, are you in a relationship where you are being physically hurt, threatened, controlled or made to feel afraid? No 02/22/2023 Social Connections Answer Date Recorded How often do you see or talk to people that you care about and feel close to? (For example: talking to friends on the phone, visiting friends or family, going to mormon or club meetings) I choose not to answer the question 02/21/2023 Alcohol Use Answer Date Recorded Audit C Total Score 1 02/21/2023 Financial Resource Strain Answer Date R ecorded In the past year, have you o r any family members you live with been unable to get any of the following when it was really needed? Check all that apply. None 02/21/2023 Food Insecurity Answer Date Recorded RETIRE How often in the past 12 months would you say you are worried or stressed about having enough money to buy nutritious meals? Never 02/21/2023 Inadequate Housing Answer Date Recorded Social Determinants: Housing (Overall Score Help er) 2 02/17/2023 PRAPARE - Transportation Answer Date Re corded [...] serious difficul ty walking or climbing stairs? Yes 02/17/2023 Do you have difficulty dressing or bathing? No 02/17/2023 Because of a physical, menta l, or emotional condition, do you have difficulty doing errands alone? No 02/17/2023 Cognitive Status Response Date of Assessm ent Because of a physical, menta l, or emotional condition, do you have serious difficulty concentrating, remembering or making decisions? No 02/17/2023 documented as of this encounter Plan of Treatment Upcoming Encounters Date Type Department Care Team (Late st Contact Info) Description 07/05/2024 4:15 PM CDT Office Visit [facility] [address] [place] [address] Bal Mayen MD [address] [place] [address] documented as of this encounter Visit Diagnoses Not on filedocumented in this encounter Additional Health Concerns Assessment Noted Time PHQ-9 Depression Total Score: 16 023 1:18 AM SALARY AND WAGE ADMINISTRATOR documented as of this encounter Care Teams Graphic Design Manager Relationship Specialty Start Date End Date Christy Gonzalez MD [address] [facility] [address] [place] [phone] PCP - General Internal Medicine 12/21/22 Kiya Sequeira, RN Specialty Esthetician/Owner Registered Nurse 01/17/24 4 Abbey Castano, COO Minesweeping Officer - Population Health Social Work 01/28/24 documented as of this encounter
--- OUTSIDE RECORDS SUMMARY | 2024-04-09 16:18 | XMS_ITS | Encounter Summary ---
Author Organization [facility] Address [address] [place] [address] Care Team Providers Care Edge Finisher Name Role Phone Christy Gonzalez MD Primary Care Provider [phone] Abbey Castano Unavailable Unavailable Encounter Details Date Type Department Care Team ([facility] st Contact Info) Description 03/07/2024 Case Management [facility], A Building [address] [place] [id number] Abbey Castano, ENT NURSE Social History Tobacco Use Types Packs/Day Years [...] phone, visiting friends or family, going to sikh or club meetings) Patient declined 02/23/2024 Alcohol [...] Notes * Telephone Encounter - Abbey Castano, ENT NURSE - 03/07/2024 1:46 PM CST Type of Encounter: Follow-up Call completed with: Patient Issues addressed: Emotional Health / Coping / Stress Progress Notes: SW spoke with patient this date. Patient stated he is doing ok and is back on the road. 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 Patient also explained that he was previously trying to get into [facility] psych but was denied. Patient unclear as to why and only stated I didn't meet criteria. SW unable to discern more from chart review. SW aware that patient has an upcoming telehealth psych appointment and check writer encouraged patient to discuss with provider at that time to provide additional clarity. Patient did express thanks to check writer for sending [facility] to his home and confirmed he was able to complete this in the hospital. TEDDY confirmed this check writer is able to see completed document in patient's chart and congratulated him for completing this step. TEDDY suggested this check writer follow up with patient again next week after his appointment. Patient agreeable to this and had no further questions or concerns for SW at this time. Social Work goal/plan reviewed: Patient agrees with the Social Work goal/plan of care and call follow-up plan. Next encounter: Within 1-2 weeks to follow up on psych plan in the future and possible plan for closure. Y LIQUEFIER documented in this encounter Plan of Treatment Upcoming Encounters Date Type Department Care Team (Late st Contact Info) Description 07/05/2024 4:15 PM CDT Office Visit [facility] [address] [place] [address] Bal Mayen MD [address] [place] [address] documented as of this encounter Goals Goal Patient Goal Type Associated Problems Recent Progress Patient-Stated? Author Advance Directives General Yes Abbey Castano MSW Note: [facility] document sent 02/03 documented as of this encounter Visit Diagnoses Not on filedocumented in this encounter Additional Health Concerns Assessment Noted Time PHQ-9 Depression Total Score: 17 024 8:08 PM HONEY LIQUEFIER documented as of this encounter Care Teams Edge Finisher Relationship Specialty Start Date End Date Christy Gonzalez MD [address] [facility] [address] [place] [phone] PCP - General Internal Medicine 12/21/22 Abbey Castano MSW Network Operations Manager - Population Health Social Work 01/28/24 documented as of this encounter
--- OUTSIDE RECORDS SUMMARY | 2024-04-09 16:18 | XMS_ITS | Encounter Summary ---
Author Organization [facility] Address [address] [place] [address] Care Team Providers Care Venetian Blind Cleaner Name Role Phone Christy Gonzalez MD Primary Care Provider [phone] Abbey Castano MSW Unavailable Unavailable Reason for Visit * Reason Comments [facility] Outreach 1 Encounter Details Date Type Department Care Team (Late st Contact Info) Description 02/26/2024 Telephone Population Health Care Transitions [address] [place] [address] Provider, Population Health Support [facility] Outreach 1 Social History Tobacco [...] phone, visiting friends or family, going to taoist or club meetings) Patient declined 02/23/2024 Alcohol [...] Never 02/23/2024 How often does anyone, sen hendreson family and friends, scream or curse at [...] 07/05/2024 4:15 PM CDT Office Visit [facility] [address], [facility] [address] [address] Bal Mayen MD [address] [address] documented as of this encounter Goals Goal Patient Goal Type Associated Problems Recent Progress Patient-Stated? Author Advance Directives General Yes Abbey Castano, PHYSICAL PLANT MANAGER Note: [employer] document sent 02/03 documented as of this encounter Visit Diagnoses Not on filedocumented in this encounter Additional Health Concerns Assessment Noted Time PHQ-9 Depression Total Score: 17 024 8:08 PM DEPALLETIZER OPERATOR documented as of this encounter Care Teams Venetian Blind Cleaner Relationship Specialty Start Date End Date Christy Gonzalez MD [address] [facility] [address] [place] [address] PCP - General Internal Medicine 12/21/22 Abbey Castano MSW Plant Operations Coordinator - Population Health Social Work 01/28/24 documented as of this encounter
--- OUTSIDE RECORDS SUMMARY | 2024-04-09 16:18 | XMS_ITS | Encounter Summary ---
Author Organization [facility] Address [address] [place] [address] Care Team Providers Care Talent Acquisition Assistant Name Role Phone Christy Gonzalez MD Primary Care Provider [phone] Kiya Sequeira RN Unavailable Unavailable Abbey Castano BRANCH MANAGER Unavailable Unavailable Encounter Details Date Type Department Care Team (Late st Contact Info) Description 01/21/2024 External Record Outside Facility Provider, Outside Social [...] phone, visiting friends or family, going to cheondoism or club meetings) I choose not to [...] Description 07/05/2024 4:15 PM CDT Office Visit [facility]- [address] [place] [address] Bal Mayen MD [address] [place] [address] documented as of this encounter Visit Diagnoses Not on filedocumented in this encounter Additional Health Concerns Assessment Noted Time PHQ-9 Depression Total Score: 16 023 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
--- OUTSIDE RECORDS SUMMARY | 2024-04-09 16:18 | XMS_ITS ---
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
--- OUTSIDE RECORDS SUMMARY | 2024-04-09 16:18 | XMS_ITS | Encounter Summary ---
Author Organization [facility] Address [address] [place] [address] Care Team Providers Care Emergency Doctor Name Role Phone Christy Gonzalez MD Primary Care Provider [phone] Abbey Castano [facility] Unavailable Unavailable Reason for Visit * Reason Comments [facility] Outreach 5 Encounter Details Date Type Department Care Team (Late st Contact Info) Description 03/25/2024 Telephone [facility] CRS Scheduling [address] [place], [place] Bal Mayen MD [address] [place] [address] [facility] Outreach 5 Social History Tobacco Use Types Packs/Day Years [...] Recorded In the past 12 months has [facility] [employer], gas, oil, or water [employer] threatened to shut off services in your [...] encounter Miscellaneous Notes * Telephone Encounter - Cira Dolan RN - 04/04/2024 2:25 PM INFORMATION SERVICES TECH Called patient to follow up. Patient reports having baseline chest pain for weeks and wants to see Dr. Mayen tomorrow since he is in town. Per Dr. Mayen, pt to be scheduled for 04/05/2024 at 9:00 am. RMATION SERVICES TECH * Telephone Encounter - Mitzy Contreras - 04/03/2024 12:00 PM CSTSummary: appoiantment today? Patient was scheduled for a follow up in April at the next available. 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 Mayen. Please call patient to advise. He stated his blood pressure is still very high. RMATION SERVICES TECH documented in this encounter Plan of Treatment Upcoming Encounters Date Type Department Care Team (Late st Contact Info) Description 07/05/2024 4:15 PM CDT Office Visit [facility] [address] [place] [address] Bal Mayen MD [address] [place] [address] documented as of this encounter Goals Goal Patient Goal Type Associated Problems Recent Progress Patient-Stated? Author Advance Directives General Yes Abbey Castano MSW Note: [employer] document sent 02/03 documented as of this encounter Visit Diagnoses Not on filedocumented in this encounter Additional Health Concerns Assessment Noted Time PHQ-9 Depression Total Score: 17 024 8:08 PM INFORMATION SERVICES TECH documented as of this encounter Care Teams Emergency Doctor Relationship Specialty Start Date End Date Christy Gonzalez MD [address] [facility] [address] [place] [phone] PCP - General Internal Medicine 12/21/22 Abbey Castano MSW Supervisor Histology - Population Health Social Work 01/28/24 documented as of this encounter
--- OUTSIDE RECORDS SUMMARY | 2024-04-09 16:18 | XMS_ITS | Encounter Summary ---
Author Organization [facility] Address [address] [place] [address] Care Team Providers Care Rn Office Name Role Phone Pcp, No Primary Care Provider UnavailChristy Elise MD Primary Care Provider [phone] Kiya Sequeira RN Unavailable Unavailable Abbey Castano CONSTRUCTION MANAGER Unavailable Unavailable Reason for Visit * Reason Comments Refill Request Encounter Details Date Type Department Care Team (Late st Contact Info) Description 07/07/2022 Refill [facility] [address] [place], [place] [id number] Magaly Eller PA-C [address] [place], [place] [phone] Refill Request Social History Tobacco Use Types [...] phone, visiting friends or family, going to zoroastrian or club meetings) 1 or 2 times [...] Description 07/05/2024 4:15 PM CDT Office Visit [facility] [address] [place] [address] Bal Mayen MD [address] [place] [address] documented as of this encounter Visit Diagnoses Diagnosis Insomnia, unspecified type documented in this encounter Care Teams Rn Office Relationship Specialty Start Date End Date Pcp, No PCP - General 09/04/22 12/20/22 Christy Gonzalez MD [address] [place] [phone] PCP - General Internal Medicine 12/21/22 Kiya Sequeira, RN Specialty Engagement Manager Registered Nurse 01/17/24 4 Abbey Castano, CONSTRUCTION MANAGER B2B Sales Representative - Population Health Social Work 01/28/24 documented as of this encounter
--- OUTSIDE RECORDS SUMMARY | 2024-04-09 16:18 | XMS_ITS | Encounter Summary ---
Author Organization [facility] Address [address] [place] [address] Care Team Providers Care Care Rep Name Role Phone Christy Gonzalez MD Primary Care Provider [phone] Abbey Castano Unavailable Unavailable Reason for Visit * Reason Comments [facility]reach 4 Encounter Details Date Type Department Care Team (Late Contact Info) Description 03/18/2024 Telephone Population Health Care Transitions [address] [place] [address] Provider, Population Health Support [facility]reach 4 Social History Tobacco Use Types Packs/Day Years [...] phone, visiting friends or family, going to lutheran or club meetings) Patient declined 02/23/2024 Alcohol [...] Description 07/05/2024 4:15 PM CDT Office Visit [facility] [address] [address] Bal Mayen MD [address] [address] documented as of this encounter Goals Goal Patient Goal Type Associated Problems Recent Progress Patient-Stated? Author Advance Directives General Yes Abbey Castano, OIL AND GAS PRINCIPAL Note: [employer] document sent 02/03 documented as of this encounter Visit Diagnoses Not on filedocumented in this encounter Additional Health Concerns Assessment Noted Time PHQ-9 Depression Total Score: 17 024 8:08 PM CARDIOLOGY CONSULTANT documented as of this encounter Care Teams Care Rep Relationship Specialty Start Date End Date Christy Gonzalez MD [address] [facility] [address] [place] [address] PCP - General Internal Medicine 12/21/22 Abbey Castano MSW Transfer Car Operator - Population Health Social Work 01/28/24 documented as of this encounter
--- OUTSIDE RECORDS SUMMARY | 2024-04-09 16:18 | XMS_ITS | Encounter Summary ---
Author Organization [facility] Address [address] [place] [address] Care Team Providers Care Sourcing Internship Name Role Phone Christy Gonzalez MD Primary Care Provider [phone] Abbey Castano Unavailable Unavailable Encounter Details Date Type Department Care Team (Latest Contact Info) Description 03/31/2024 Travel Social History Tobacco Use Types Packs/Day [...] phone, visiting friends or family, going to rastafari or club meetings) Patient declined 02/23/2024 Alcohol [...] Description 07/05/2024 4:15 PM CDT Office Visit [facility] [address] [place] [address] Bal Mayen MD [address] [place] [address] documented as of this encounter Goals Goal Patient Goal Type Associated Problems Recent Progress Patient-Stated? 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
--- OUTSIDE RECORDS SUMMARY | 2024-04-09 16:18 | XMS_ITS | Encounter Summary ---
Author Organization [facility] Address [address] [place] [address] Care Team Providers Care Stereo Equipment Salesperson Name Role Phone Christy Gonzalez MD Primary Care Provider [phone] Abbey Castano MSW Unavailable Unavailable Reason for Visit * Reason Comments [facility] Outreach 3 Encounter Details Date Type Department Care Team (Late Contact Info) Description 03/11/2024 Telephone Population Health Care Transitions [address] [place] [address] Provider, Population Health Support [facility] Outreach 3 Social History Tobacco Use Types Packs/Day Years [...] Description 07/05/2024 4:15 PM CDT Office Visit [place] [facility] [address] [address] Bal Mayen MD [address] [address] documented as of this encounter Goals Goal Patient Goal Type Associated Problems Recent Progress Patient-Stated? Author Advance Directives General Yes Abbey Castano, QUALIFICATION ENGINEER Note: [employer] document sent 02/03 documented as of this encounter Visit Diagnoses Not on filedocumented in this encounter Additional Health Concerns Assessment Noted Time PHQ-9 Depression Total Score: 17 024 8:08 PM LAWN CARETAKER documented as of this encounter Care Teams Stereo Equipment Salesperson Relationship Specialty Start Date End Date Christy Gonzalez MD [address] [facility] [address] [place] [address] PCP - General Internal Medicine 12/21/22 Abbey Castano MSW Form Setter/Driver - Population Health Social Work 01/28/24 documented as of this encounter
--- OUTSIDE RECORDS SUMMARY | 2024-04-09 16:19 | XMS_ITS | Encounter Summary ---
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 Phone No, Physician Primary Care Provider Unavailabl e Reason for Visit * Reason Comments Chest Pain Shortness of Breath * Auth/Cert (Routine) Specialty Diagnoses / Procedures Referred By Conthyacinth t Referred To Contact Diagnoses Shortness of breath Chest pain Chest pain with high risk for cardiac etiology Hypertension, unspecified type History of CAD (coronary artery disease) Referral ID Status Reason Start Date Expiration Date Visits Re quested Visits Authorized [id number] 1 1 Encounter Details Date Type Department Care Team (Late st Contact Info) Description 03/23/2024 7:37 PM EST - 03/24/2024 10:44 AM EST Emergency [facility] [address] [place] [address] Gavin Cain MD [facility] [address] [facility] [place] [address] Service, [facility] [address] [facility] [address] [place] [address] Kai Nolan MD [facility] [address] [place] [address] Robbie Wilson MD [facility] [address] [place] [address] Discharge Disposition: Home Social History Tobacco Use Types Packs/Day Years Used Date Smoking Tobacco: Every Day Cigarettes Smokeless Tobacco: Never Tobacco Cessation:Ready to Q uit: Not Asked; Counseling Given: Not Answered Alcohol Use Standard Drinks/Week Comments Never 0 (1 standard drink = 0.6 oz pur e alcohol) [facility] Utilities Answer Date Recorded In the past 12 months has th e [employer], gas, oil, or water company threatened to shut off services in your home? No 03/24/2024 Humiliation, Afraid, Rape, and Kick questionnair e Answer Date Recorded Within the last year, have y ou been afraid of your partner or ex-partner? No 03/24/2024 Within the last year, have y ou been humiliated or emotionally abused in other ways by your partner or ex-partner? No Within the last year, have y ou been kicked, hit, slapped, or otherwise physically hurt by your partner or ex-partner? No 03/24/2024 Within the last year, have y ou been raped or forced to have any kind of sexual activity by your partner or ex-partner? No 03/24/2024 Hunger Vital Sign Answer Date Recorded Within the past 12 months, y ou worried that your food would run out before you got the money to buy more. Never true 03/24/20 24 Within the past 12 months, t he food you bought just didn't last and you didn't have money to get more. Never true 03/24/2024 PRAPARE - Transportation Answer Date Re corded In the past 12 months, has l ack of transportation kept you from medical appointments or from getting medications? No 02/27 In the past 12 months, has l ack of transportation kept you from meetings, work, or from getting things needed for daily living? No 03/24/2024 Housing Stability Vital Sign Answer Reed e Recorded In the last 12 months, was t here a time when you were not able to pay the mortgage or rent on time? No 03/24/2024 In the past 12 months, how m any times have you moved where you were living? 1 03/24/2024 At any time in the past 12 m [facility], were you homeless or living in a fci (including now)? No 03/24/2024 Sex and Gender Information Value Date Recorded Sex Assigned at Not on file Legal Sex Male 7:37 PM EST Gender Identity Not on file Sexual Orientation Not on file Travel History Travel Start Travel End [place] 03/17/2024 03/23/2024 documented as of this encounter Last Filed Vital Signs Vital Sign Reading Time Taken Comments Blood Pressure 149/93 03/24/2024 7:38 AM EST Pulse 68 03/24/2024 7:38 AM EST Temperature 36.5 C (97.7 F) 03/24/2024 7:38 AM EST Respiratory Rate 18 03/24/2024 10:3 7 AM EST Oxygen Saturation 96% 03/24/2024 7:38 AM EST Inhaled Oxygen Concentration - - Weight 108.6 kg (239 lb 6.7 oz) 024 11:40 PM EST Height 177.8 cm (5' 10) 03/23/2024 11: 40 PM EST Body Mass Index 34.35 03/23/2024 11:40 PM EST documented in this encounter Discharge Summaries * Rosio Ortega, - 03/24/2024 10:44 AM EST [facility] Johnny Garn[facility] Account: [id number] Admitted: 03/23/2024 Discharge Date/Time: 03/24/24 12:43 PM Handoff to PCP Routine hospital follow up Close follow-up with PCP - recommend outpatient PFT, consider maintenance inhaler with ICS. Follow-up with cardiology, patient reports having appointment sometime in 03/2024. Clinical Summary Johnny Garnett is a 53 y.o. male with a history of CAD s/p CABG and recent PCI (12/2023), asthma, bipolar 2 disorder, HTN, HLD, tobacco use disorder, recent admission at [facility] from 03/14/2024 to 03/15/2024 due to atypical chest pain who presented to [facility] 03/23/2024 with worsening SOB and chest pain. [...] and on exertion; similar sensation as prior AZ's. Recent admission at [facility] 03/14-03/15 for atypical chest pain felt to [...] to outpatient; reportedly has follow-up with cardiology in03/2024. CAD s/p CABG: Per history, CABG in 03/2022 (Dr. Marquis). C 01/20/24 with PCI/JOSESITO of proximal LADdue to restenosis. Echo 03/11/24 LVEF 65%. NM [...] skin daily . QUEtiapine 50 MG tablet Commonly known as: SEROQUEL Take 1 (one) tablet (50 mg total) by mouth nightly . ranolazine 500 MG 12 hr tablet Commonly known as: RANEXA Take 1 (one) tablet (500 mg total) by mouth 2 (two) times a day . spironolactone 25 MG tablet Commonly known as: ALDACTONE Take 1 (one) tablet (25 mg total) by mouth daily . Physician(s) Family: No, Physician, Phone: None, Address: [facility] Follow Up: No follow-up provider specified. Additional Information: Patient seen and examined day of discharge. For more information regarding patient's care, including complete radiology reports, please contact [facility] at Patient instructions, including activity, were given to the patient/family at discharge. Please seethe After Visit Summary in the medical record for details. Time spent on discharge: > 30 minutes Completed by: Rosio Ortega DO on 03/24/24, 12:43 PM Cosigned by Kai Nolan MD at 03/24/2024 8:55 PM EST Associated attestation - Kai Nolan MD - 03/24/2024 8:55 PM EST I saw and examined Johnny Garnett independently reviewing labs, imaging and consultation notes on 03/24/24 . I was physically present for the chauhan portions of the services provided. I agree with the discharge plan of resident physician - with the following additions and exceptions. Johnny Garnett is a 53 y.o. male with a history of CAD s/p CABG and PCI, asthma, bipolar 2 disorder,HTN, HLD, who presented to [facility] 03/23/2024 with worsening SOB and chest pain. Symptoms are most likely related to acute asthma exacerbation as patient noted most of his symptomsonce he was driving into the cold weather, has been using albuterol as needed but currently not have any medications. Similar presentation 2 weeks ago where he had a stress test which was unremarkable. He will travel back to [place], will get new refills from PCP and consideration of a combination bronchodilator/GC inhaler given severity of symptoms. Physical: NAD, CTAB, breathing comfortably, abd nondistended, no LE edema. Kai Nolan MD[facility] Hospitalist documented in this encounter Discharge Instructions * Discharge Instr - AVS First Page* Rosio Ortega, DO - 03/24/2024 9:28 AM EST Dear Johnny Garnett, You were admitted to [facility] for chest pain, difficulty breathing, which we believe was due to possible asthma exacerbation. During your hospital stay, you were treated with breathing treatments. You were also noted to have high blood pressure while you were in the hospital. At this time you are stable enough for discharge home, however, there are several things you shoulddo when you leave the hospital: Please continue taking all your medications every day, as prescribed, without skipping any doses. Please call to schedule follow up with your PCP within 1-2 weeks of discharge from the hospital. Discuss with them having formal breathing test (pulmonary function test) completed and consider an inhaler with a steroid in it. Please follow up with your regulator assembler (heart doctor) as scheduled. Please continue to take all of your other home medications the same. If you have any new or worsening symptoms, please seek medical attention. Please seek medical care if you develop fevers, chest pain, shortness of breath, lightheadedness, abdominal pain, nausea/vomiting or diarrhea. These could be signs of further issues and you will need to be evaluated. It was a pleasure taking care of you during your hospital stay. Thank you for involving us in your treatment and good luck with your recovery. [facility] Physicians [facility] documented in this encounter Medications at Time of Discharge albuterol 90 mcg/actuation inhaler Inhale 2 (two) puffs every 4 (four) hours as needed for wheezing . ARIPiprazole (ABILIFY) 10 MG disintegrating tablet Dissolve 1 (one) tablet (10 mg total) on top of tongue daily . aspirin 81 mg chewable tablet Chew and Swallow 1 (one) tablet (81 mg total) daily . atorvastatin (LIPITOR) 80 MG tablet Take 1 (one) tablet (80 mg total) by mouth daily . carvediloL (COREG) 12.5 MG tablet Take 1 (one) tablet (12.5 mg total) by mouth 2 (two) times a day . clopidogreL (PLAVIX) 75 mg tablet Take 1 (one) tablet (75 mg total) by mouth daily . ezetimibe (ZETIA) 10 mg tablet Take 1 (one) tablet (10 mg total) by mouth daily . hydrocortisone 1 % cream Apply topically 2 (two) times a day . losartan (COZAAR) 50 MG tablet Take 1 (one) tablet (50 mg total) by mouth daily . nicotine (NICODERM CQ) 21 mg/[address] 1 (one) patch on the skin daily . QUEtiapine (SEROQUEL) 50 MG tablet Take 1 (one) tablet (50 mg total) by mouth nightly . ranolazine (RANEXA) 500 MG 12 hr tablet Take 1 (one) tablet (500 mg total) by mouth 2 (two) times a day . spironolactone (ALDACTONE) 25 MG tablet Take 1 (one) tablet (25 mg total) by mouth daily . documented as of this encounter H&P Notes * Luis Ruggiero MD - 03/23/2024 10:49 PM EST [facility] H&P Note 03/23/24 Johnny Garnett 1970 [id number] Assessment/Plan: Johnny Garnett is a 53 y.o. male with a history of CAD s/p CABG and PCI, asthma, bipolar 2 disorder,HTN, HLD, who presented to [facility] 03/23/2024 with worsening SOB and chest pain. Of note, recent admission at [facility] from 03/14/2024 to 03/15/2024 due to atypical [...] Will continue inpatient. Patient recently admitted to [facility] for atypical chest pain (03/14/2024-03/15/2024). At that admission troponins unremarkable and EKG not concerning for ischemic seizures. CAD s/p CABG x3 (03/2022): CABG x3 of LAD, RPDA and LPDA performed by Dr. Marquis. As per chart review, most recent echo with EF 60% (10/2023). LHC (01/20/2024) with PCI/JOSESITO of proximal LAD due to restenosis. Home regimen: ASA 81mg daily, Plavix 75mg daily, spirinolactone 25mg daily. Will continue i npatient. Bipolar 2 disorder: Abilify 10mg daily and [...] pain as a pressure/tightness in the middle ofhis chest 9 out of 10 in intensity [...] he is not drinking and not using illicit drugs. Denies fevers, chills, night sweats, sore throat, ear pain or any other related symptoms. Denies swelling in extremities. Patient refers that he is compliant with all of his medications. Denies exposure to anybody has been sick. ROS: 10 systems were reviewed and negative, except as noted above. Past Medical, Surgical, Social, Family History: Past Medical History: Diagnosis Date Asthma Bipolar 2 disorder (HCC) CHF (congestive heart failure) (HCC) Hyperlipidemia Hypertension PTSD (post-traumatic stress disorder) Past Surgical History: Procedure Laterality Date CABG STENT PLACEMENT TONSILLECTOMY VASECTOMY Social History Socioeconomic History Marital status: Single Tobacco Use Smoking status: Every Day Types: Cigarettes Smokeless tobacco: Never Substance and Sexual Activity Alcohol use: Never Drug use: Not Currently Social Drivers of Health Financial Resource Strain: Low Risk (02/22/2024) Received from [facility] Financial Resource Strain In the past year, have you or any family members you live with been unable to get any of the following when it was really needed? Check all that apply.: None Food Insecurity: No Food Insecurity (03/11/2024) Received from [facility] Hunger Vital Sign Worried About Running Out of Food in the Last Year: Never true Ran Out of Food in the Last Year: Never true Transportation Needs: No Transportation Needs (03/11/2024) Received from [employer] PRAPARE - Transportation Lack of Transportation (Medical): No Lack of Transportation (Non-Medical): No Social Connections: Patient Declined (02/23/2024) Received from [facility] Social Connections How often do you see or talk to people that you care about and feel close to? (For example: talkingto friends on the phone, visiting friends or family, going to hindu or club meetings): Patient declined Housing Stability: Low Risk (03/11/2024) Received from [facility] Housing Stability Vital Sign Unable to Pay for Housing in the Last Year: No Number of Times Moved in the Last Year: 1 Homeless in the Last Year: No History reviewed. No pertinent family history. Home Medications: No current outpatient medications on file as of 03/23/2024. Physical Exam: BP (!) 177/96 Pulse 66 Temp 98.1 ??F (36.7 ??C) (Oral) Resp 14 Ht 5' 10 Wt 111.1 kg (245lb) SpO2 95% BMI 35.15 kg/m?? General: NAD Eyes: EOMI ENT: neck supple Cardiovascular: Regular rate. Respiratory: End expiratory wheezing. No crackles or rales. Gastrointestinal: Soft, non tender Genitourinary: no suprapubic tenderness Musculoskeletal: No edema Skin: warm, dry Neuro: Alert. Psych: Mood appropriate. Labs, Imaging, and Studies reviewed: Results from last 7 days Lab Units 03/23/24202003/23/241958 WBC K/mcL -- 9.18 HGB g/dL -- 14.1 HCT % -- 41.8 HEMATOCRITPOC % 46 -- PLT K/mcL -- 346 Results from last 7 days Lab Units 03/23/24202003/23/241958 SODIUM mmol/L -- 139 POTASSIUM mmol/L -- 3.8 CHLORIDE mmol/L -- 106 BICARB mmol/L -- 22 BUN mg/dL -- 11 POC BUN mg/dL 10 -- CREATININE mg/dL -- 1.09 POC CREATININE (EPOC) mg/dL 1.08 -- EGFR mL/min/1.73 m2 -- 80 GLUCOSE mg/dL -- 106* CALCIUM mg/dL -- 9.0 Results from last 7 days Lab Units 03/23/241958 ALT U/L 36 AST U/L 26 ALK PHOS U/L 87 BILIRUBIN TOTAL mg/dL 0.3 Cosigned by Kai Nolan MD at 03/24/2024 8:55 PM EST Associated attestation - Kai Nolan MD - 03/24/2024 8:55 PM EST I saw and examined Johnny Garnett independently reviewing labs, imaging and consultation notes on 03/24/24 . I was physically present for the chauhan portions of the services provided. I agree with the discharge plan of resident physician - with the following additions and exceptions. Johnny Garnett is a 53 y.o. male with a history of CAD s/p CABG and PCI, asthma, bipolar 2 disorder,HTN, HLD, who presented to [facility] 03/23/2024 with worsening SOB and chest pain. Symptoms are most likely related to acute asthma exacerbation as patient noted most of his symptomsonce he was driving into the cold weather, has been using albuterol as needed but currently not have any medications. Similar presentation 2 weeks ago where he had a stress test which was unremarkable. He will travel back to [place], will get new refills from PCP and consideration of a combination bronchodilator/GC inhaler given severity of symptoms. Physical: NAD, CTAB, breathing comfortably, abd nondistended, no LE edema. Kai Nolan MD, FACP [facility] Hospitalist documented in this encounter Consult Notes * Amanda Pearce RN - 03/24/2024 10:23 AM ESTAssociated Order(s): IP CONSULT TO CARE MANAGEMENT Care Management Consult Note Date: 03/24/2024 Time: 10:24 AM Patient Name: Johnny Garnett Date of : 1970 Reason for Consult: Discharge Plan: D/C Disposition: Home Discharging Transportation Plan: Transportation Type: Cab Discharge Plan Status: Patient to discharge home when medically stable. CM consulted for assistance with transportation. Yellow cab phone number provided to nursing staff. 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 Therapy Services Needed After Discharge: No Outcomes Measures Prior Function - Basic Mobility Raw Score: 24 Points Prior Function - Basic Mobility % Impaired: 0% AM-PAC Basic Mobility Raw Score: 22 Points AM-PAC Basic Mobility % Impaired: 25.02% Physical Therapy Assessment History: The following factors influence the patient's participation in the PT plan of care: Personal Factors: Limited Compliance, Social Barriers Environmental Factors: (Residing in a van, from out of town) The following co-morbidities (from this admission or prior) influence the patient's participation in this plan of care: Chest pain, asthma, CHF, HTN Number of History elements affecting this patient's PT plan of care: 3 or more Examination of Body Systems: The patient presents with: Musculoskeletal impairments: Pain Neurologic Impairments: Cognition Cardiopulmonary Impairments: Activity Tolerance. These impairments result in limitations of Activity Tolerance. These impairments result in restrictions of Community mobility. Number of Body Systems elements affecting this patient's PT plan of care: 4 or more. Clinical Presentation: The patient's clinical presentation for this PT evaluation is evolving with changing characteristics as evidenced by current PT documentation. Activity Tolerance Activity Tolerance: Tolerates 20 - 30 min activity with multiple rests Therapy Precautions Orthotic Devices: No Weight Bearing Status: WFL General Rehab Precautions: None Balance Assessment Sitting Balance - Static: Independent Sitting Balance - Dynamic: Independent Standing Balance - Static: Independent Standing Balance - Dynamic: Supervision Bed Mobility Supine to Sit: Independent Sit to Supine: Independent Transfers Sit to Stand: Independent Bed to Chair: Independent Building Official: (none) Gait/Locomotion Gait Assistance: Supervision Assistive Device: (none) Distance: 100 Feet Pattern: Within Functional Limits, step through, forward flexed Environment/Terrain: open/community environment, multiple distractions Additional Assessment Details Home Living Obtained Home Living and PLOF info from: Patient Lives With: Alone, Friend(s) Type of Home: (Has been living in his van) Prior Level of Function Level of [place] - Transfers/Ambulation/Mobility: Independent with functional transfers Level of [place] - ADLs: Independent Level of [place] - Homemaking: Independent Driving: Patient drives Past Medical History: Diagnosis Date Asthma Bipolar 2 disorder (HCC) CHF (congestive heart failure) (HCC) Hyperlipidemia Hypertension PTSD (post-traumatic stress disorder) Past Surgical History: Procedure Laterality Date CABG STENT PLACEMENT TONSILLECTOMY VASECTOMY For complete objective data, detailed plan of care and patient education refer to: PT Evaluation flowsheet, PT Evaluation and Treatment flowsheet, PT Treatment flowsheet, patient Plan of Care, Plan of Care progress note, and Patient Education. This note stands as the current Discharge Summary upon patient discharge from the hospital or completion of Physical Therapy Plan. * Candi Terrazas OT - 03/24/2024 9:09 AM EST Occupational Therapy OCCUPATIONAL THERAPY SCREEN Patient was screened by Occupational Therapy. Upon review of the chart and discussion with the nurse and observation of the patient, no skilled Occupational Therapy intervention is indicated. Order discontinued at this time. documented in this encounter ED Notes * Rajwinder Jordan RN - 03/23/2024 11:24 PM EST Patient resting comfortably in bed, watching television. Patient denies needs at this time, Monitoring devices connected and in place at this time, Call light within reach, and Patient offered comfort items. * Ghazala Brown PSA - 03/23/2024 9:28 PM EST [facility] service. Insurance Account Assistant to write admission orders. [phone]. * Gavin Cain MD - 03/23/2024 8:10 PM EST ED Physician Note: NAME: Johnny Garnett 53 y.o. CSN: [id number] PCP: No, Physician History: Chief Complaint: Chest Pain and Shortness of Breath HPI/ROS: Johnny is a 53 y.o. male who presents [...] Resource Strain: Low Risk (02/22/2024) Received from [facility] Financial Resource Strain In the past year, have you or any family members you live with been unable to get any of the following when it was really needed? Check all that apply.: None Food Insecurity: No Food Insecurity (03/11/2024) Received from [facility] Hunger Vital Sign Worried About Running Out of Food in the Last Year: Never true Ran Out of Food in the Last Year: Never true Transportation Needs: No Transportation Needs (03/11/2024) Received from [facility] PRAPARE - Transportation Lack of Transportation (Medical): No Lack of Transportation (Non-Medical): No Social Connections: Patient Declined (02/23/2024) Received from [facility] Social Connections How often do you see or talk to people that you care about and feel close to? (For example: talkingto friends on the phone, visiting friends or family, going to hindu or club meetings): Patient declined Housing Stability: Low Risk (03/11/2024) [facility] Housing Stability Vital Sign Unable to [...] -- 67 16 95 % -- -- 03/23/24 210 (!) 208/100 -- -- 67 14 95 % -- -- 03/23/242055 -- -- -- -- 18 -- -- -- 03/23/241999 (!) 173/102 -- -- 72 13 96 % -- -- 03/23/24 1939 (!) 159/100 98.1 ??F (36.7 ??C) Oral 75 (!) 19 96 % 5' [...] All other components within normal limits Narrative: [facility] Laboratory [facility] has implemented the eGFR calculation approach that does not have a coefficient for race that conforms to the NKF-ASN Task Force Recommendations. POC VBG LAB(EPOC) - RALS - Abnormal; Notable for the following components: pH, Venous 7.44 (*) pCO2, Aleksandr 36.7 (*) pO2, Aleksandr 44 (*) O2 Sat, Aleksandr 81.4 (*) Glucose 102 (*) All other components within normal limits Narrative: [facility] Laboratory [facility] has implemented the eGFR calculation approach that [...] Procedure Abnormality Status --------- ------ CBC Auto Differential[[id number]] Abnormal Final result Please view results for these tests on the individual orders. TROPONIN TROPONIN OBTAIN VENOUS BLOOD GASES AND PERFORM XR Chest 1 View (Results Pending) Procedures Procedures ED Course / Medical Decision Making: I have reviewed the chief complaint, triage note, past medical/surgical, family, and social history. HPI/ROS/Medical Decision Making I saw and evaluated the patient. I have reviewed the chief complaint, triage note, past medical/surgical, family, and social history. ED Course as of 03/23/242122Mar 23, 20241957 EKG reviewed and shows normal sinus rhythm, normal axis, normal intervals, no ST elevations. [CB] 2007 Patient with history of CAD, CABG, presents with midsternal chest tightness, worse with exertion, some wheezing, improved with DuoNeb, clinically concern for ACS, EKG with no acute changes, willobtain troponin testing, blood work, will give aspirin, nitro, and other albuterol treatment. Less likely dissection as there is no radiation to the back, good pulses, well-appearing, no tachycardia or hypoxia to suggest PE. [CB] 2121 Patient's improved with Nitropaste, blood pressure 160 systolic, pain now 5/10, will order another dose of morphine, if pain not improved and still hypertensive would consider nitro drip, patient will be admitted. [CB] ED Course User Index [CB] Gavin Cain MD MDM Data Reviewed information from: EMS. MDM Data : Chronic conditions is/is not having mild/moderate/severe exacerbation, progression or side effects of treatment, Shared decision making utilized by explaining the results and plan of care for disposition and next steps of care with the patient and/or family, Treatment Goals were addressed, Drug management discussed, and Admit or Transfer Decisions considered . . Medications Ordered/Given During ED Visit Medications naloxone (NARCAN) injection 0.1 mg (has no administration in time range) And naloxone (NARCAN) injection 0.4 mg (has no administration in time range) morphine syringe 4 mg (has no administration in time range) aspirin chewable tablet 324 mg (324 mg Oral Given 03/23/242054) morphine syringe 4 mg (4 mg Intravenous Given 03/23/242055) ondansetron (ZOFRAN) injection 4 mg (4 mg Intravenous Given 03/23/242055) nitroGLYCERIN (NITRO-BID) 2 % ointment 1 inch (1 inch Topical Given 03/23/242055) ipratropium-albuteroL (DUO-NEB) 0.5-2.5 mg/3 ml nebulizer solution 3 mL (3 mL Inhalation Given 03/23/242016) Clinical Impression: 1. Chest pain with high risk for cardiac etiology 2. History of CAD (coronary artery disease) 3. Hypertension, unspecified type 4. Shortness of breath Disposition: Patient is admitted Aravind Cain MD ED Attending Physician (Please note that portions of this note have been completed with a voice recognition software. Efforts were made to correct any errors, but occasionally words are mis-transcribed.) Gavin Cain MD 03/23/242122 * Kimberly Frey RN - 03/23/2024 7:37 PM EST Pt arrives via medic CC cp, dizzy, sob. X1 duo neb and 0.4ntg given [employer] Hx bipass x2yrs, stent placed around 1mo ago * Ernesto Rivera RN - 03/23/2024 7:37 PM EST Bed: 57 Expected date: Expected time: Means of arrival: Comments: N24/CP/[place] documented in this encounter Miscellaneous Notes * Plan of Care - Urvashi Ware RN - 03/24/2024 10:41 AM EST PIV removed from L AC without complication and tolerated well by patient. VSS. Patient denies any current chest pain and is agreeable for discharge today. No new concerns at this time. AVS was reviewed with patient who is able to verbalize understanding. Yellow Cab was arranged for patient and he was taken to the lobby in a wheelchair to wait for yellow cab per his request. * Quick Note - Anne Torres DO - 03/23/2024 10:34 PM EST RESIDENT ADDENDUM TO VALIDATION ARCHITECT HISTORY & PHYSICAL I was present to evaluate the patient 03/23/24. I participated in the critical portions of the management provided. I agree with the graphics intern's findings and plan with the following additions. All critical aspects of the medical decision making will be discussed on rounds with the [facility] attending on service, Dr. Wilson. Johnny Garnett is a 53 y.o. male with a significant PMHx of CAD s/p CABG, asthma, bipolar II disorder, HTN, HLD and PTSD who presented on 03/23/24 with chest pain. Recurrent recent ED visits for chestpain. He had stent placed in a couple of months ago. Patient reports chest pain for the last 4 days. Describes pain as a tightness sensation that is constant and gets worse with exertion. Notes that his asthma has been getting worse and increased use of his home albuterol several times daily. He has been having dyspnea and dry cough. No fever, chills, nausea or vomiting. He received breathing treatment enroute to the ED with improvement. Patient a daily active smoker. 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 He is here in [place] for work. Vitals: BP (!) 177/96 Pulse 66 Temp 98.1 ??F (36.7 ??C) (Oral) Resp 14 Ht 5' 10 Wt 111.1kg (245 lb) SpO2 95% BMI 35.15 kg/m?? Exam: In no acute distress. Heart sounds RRR, no murmur. Diffuse wheezing to bilateral lungs. Abd soft, non tender. No LE edema or tenderness. Labs: Troponin wnl. VBG 7.44. CBC, LFTs and BMP wnl. Imaging: Chest XR with no acute findings. EKG: Sinus rhythm with PACs. Point of Care Ultrasound Findings: Other: N/A Assessment/Plan Acute Asthma Exacerbation: presents with dyspnea, pleuritic chest pain, dry cough, increased use ofhome albuterol. Noted to have diffuse wheezing on exam. O2 sat well above 90 on RA. Afebrile. No leukocytosis. Chest XR with no acute findings. Respiratory PCR and sputum cultures ordered. On scheduled DUO-NEB Q 4 hrs and PRN Albuterol nebulizer Q4hrs. Recommend outpatient pulmonary follow-up. Atypical Chest Pain: in the setting of above. Troponin wnl, flat delta. EKG with no signs of ischemia. Will continue to monitor. CAD: s/p CABG x3 in [facility]. LHC 01/20/24 s/p JOSESITO to proximal LAD. NM stress test 03/12/24 with no evidence of ischemia. Continue home ASA and Plavix. Recommend outpatient follow-up with cardiology. Tobacco Use Disorder: reports cutting down from 1-2 pack to 6-8 cigarette per day. Encourage smoking cessation. Reviewed home meds, daily labs, admit orders CODE STATUS: Full Code DVT prophylaxis: Lovenox History, prior records, outside records, home medications, HPI, labs, imaging, notes and orders were independently reviewed. This patient is being admitted under inpatient status to [facility]. Expected disposition is to home Based on current clinical information, the expected discharge date is: within 24-48 hrs Anne Torres DO Internal Medicine, PGY II [id number] / tierra/ for[MD] chat for non urgent needs * Quick Note - Francois Pierre DO - 03/23/2024 10:12 PM EST This patient is being admitted to the [facility] and should not be placed in the 6 yellow or 5 orange CMUs. Please call the internal medicine senior ([phone]) if there are issues with bed placement. documented in this encounter Plan of Treatment Scheduled Orders Name Type Priority Associated Diagnoses Orde r Schedule VBG (obtain and perform) Lab STAT Once for 1 Occur rences starting 03/23/2024 until 03/23/2024 documented as of this encounter Procedures Procedure Name Priority Date/Time Associated Diagnosis Comments TROPONIN Timed 03/24/2024 7:48 AM EST TROPONIN Timed 03/24/2024 4:53 AM EST ECG 12-LEAD STAT 03/24/2024 4:29 AM EST CBC WITH AUTO DIFFERENTIAL STAT 03/24/2024 2:42 AM EST CBC WITH AUTO DIFFERENTIAL Routine 03/24/2024 2:42 AM EST BASIC METABOLIC PANEL Routine 03/24/2024 2:42 AM EST RESPIRATORY PCR PANEL Routine 03/24/2024 12:51 AM EST SPUTUM AEROBIC CULTURE Routine 03/24/2024 12:51 AM EST TROPONIN STAT 03/23/2024 11:19 PM EST POC VBG [facility] (EPOC) - RALS Routine 03/23/2024 8:21 PM EST XR CHEST PA/AP FROYLAN 03/23/2024 8:16 PM EST LIGHT GREEN TOP STAT 03/23/2024 7:59 PM EST MINT GREEN TOP STAT 03/23/2024 7:59 PM EST GRIFFITH TOP STAT 03/23/2024 7:59 PM EST PINK TOP STAT 03/23/2024 7:59 PM EST TROPONIN STAT 03/23/2024 7:59 PM EST CBC WITH AUTO DIFFERENTIAL STAT 03/23/2024 7:59 PM EST LAVENDER TOP STAT 03/23/2024 7:59 PM EST LIGHT BLUE TOP STAT 03/23/2024 7:59 PM EST RAINBOW DRAW STAT 03/23/2024 7:59 PM EST CBC WITH AUTO DIFFERENTIAL STAT 03/23/2024 7:59 PM EST HEPATIC FUNCTION PANEL STAT 03/23/2024 7:59 PM EST BASIC METABOLIC PANEL STAT 03/23/2024 7:59 PM EST ECG 12-LEAD STAT 03/23/2024 7:44 PM EST documented in this encounter Results * Troponin x 2 (Now and Repeat in 3 hours) (03/24/2024 7:48 AM EST) Troponin T 13 <=22 ng/L 03/24/2024 9:01 AM EST [facility] Delta Difference Troponin T 0 < = -/+ 7 change ng/L 03/24/2024 9:01 AM EST [facility] Interp Troponin T Delta Change No biomarker evidence of cardiac injury. 03/24/2024 9:01 AM EST [facility] Blood BLOOD SPECIMEN / Unknown Venipuncture / Unknown 03/24/2024 7:48 AM EST 03/24/2024 8:35 AM EST us Luis Ruggiero MD LAB BLOOD ORDERABLES Final Result [facility] [address] [place], [place] [id number] * Troponin x 2 (Now and Repeat in 3 hours) (03/24/2024 4:53 AM EST) Troponin T 13 <=22 ng/L 03/24/2024 5:46 AM EST [facility] Delta Difference Troponin T 0 < = -/+ 7 change ng/L 03/24/2024 5:46 AM EST [facility] Interp Troponin T Delta Change No biomarker evidence of cardiac injury. 03/24/2024 5:46 AM EST [facility] Blood BLOOD SPECIMEN / Unknown Venipuncture / Unknown 03/24/2024 4:53 AM EST 03/24/2024 5:18 AM EST us Luis Ruggiero MD LAB BLOOD ORDERABLES Final Result Performing Organization Address City/[facility]/ZIP Co de Phone Number [facility] [address] [place], [place] [id number] * EKG 12-lead (03/24/2024 4:29 AM EST) Ventricular Rate 61 BPM MUSE Atrial Rate 61 BPM MUSE P-R Interval 150 ms MUSE QRS Duration 86 ms MUSE Q-T Interval 452 ms MUSE QTC Calculation (Bezet) 455 ms MUSE P [place] 46 degrees MUSE R [place] 1 degrees MUSE T [place] 60 degrees MUSE 03/24/2024 4:29 AM EST 03/24/2024 10:09 AM EST Narrative MUSE - 03/24/2024 10:09 AM EST Normal sinus rhythm Normal ECG Confirmed by Clay Florez ([id number]) on 03/24/2024 10:09:18 AM us Gavin Cain MD ECG ORDERABLES Fin al Result MUSE * (ABNORMAL) CBC Auto Differential (03/24/2024 2:42 AM EST) WBC 8.27 4.50 - 11.00 K/mcL 03/24/2024 4:42 AM [facility] RBC 4.67 4.50 - 5.90 M/mcL 03/24/2024 4:42 AM [facility] Hemoglobin 13.3(L) 13.5 - 17.5 g/dL 03/24/2024 4:42 AM [facility] Hematocrit 39.2(L) 41.0 - 53.0 % 03/24/2024 4:42 AM [facility] MCV 83.9 80.0 - 100.0 fL 03/24/2024 4:42 AM [facility] MCH 28.5 26.0 - 34.0 pg 03/24/2024 4:42 AM [facility] MCHC 33.9 31.0 - 37.0 g/dL 03/24/2024 4:42 AM [facility] Platelets 297 150 - 400 K/mcL 03/24/2024 4:42 AM [facility] RDW - CV 12.6 11.6 - 14.8 % 03/24/2024 4:42 AM [facility] MPV 10.1 9.4 - 12.4 fL 03/24/2024 4:42 AM [facility] Neutrophils 56.8 % 03/24/2024 4:42 AM [facility] Lymphocytes 30.7 % 03/24/2024 4:42 AM [facility] Monocytes 8.8 % 03/24/2024 4:42 AM [facility] Eosinophils 2.5 % 03/24/2024 4:42 AM [facility] Basophils 0.5 % 03/24/2024 4:42 AM [facility] IG Percent 0.70 % 03/24/2024 4:42 AM [facility] Comment:The IG parameter is the percentage of metamyelocytes, myelocytes and promyelocytes. An immature granulocyte count (IG) of 1% or more suggests the possibility of infection, an IG count of 3% is very likely related to an infection. Neutrophils Abs 4.69 1.70 - 7.00 K/mcL 03/24/2024 4:42 AM [facility] Lymphocytes Abs 2.54 0.90 - 4.00 K/mcL 03/24/2024 4:42 AM [facility] Monocytes Abs 0.73 0.30 - 0.90 K/mcL 03/24/2024 4:42 AM [facility] Eosinophils Abs 0.21 0.00 - 0.50 K/mcL 03/24/2024 4:42 AM [facility] Basophils Abs 0.04 0.00 - 0.30 K/mcL 03/24/2024 4:42 AM [facility] IG Absolute 0.06 0.00 - 0.30 K/mcL 03/24/2024 4:42 AM [facility] Nucleated RBC 0.0 % 03/24/2024 4:42 AM [facility] Nucleated RBC Abs 0.00 0.00 - 0.00 K/mcL 03/24/2024 4:42 AM [facility] Blood BLOOD SPECIMEN / Unknown Venipuncture / Unknown 03/24/2024 2:42 AM EST 03/24/2024 3:57 AM EST us Luis Ruggiero MD LAB BLOOD ORDERABLES Final Result [facility] [address] [place] [address] * (ABNORMAL) Basic Metabolic Panel (03/24/2024 2:42 AM EST) Sodium 138 135 - 145 mmol/L 03/24/2024 4:52 AM [facility] Potassium 3.6 3.5 - 5.1 mmol/L 03/24/2024 4:52 AM [facility] Comment:Slightly Hemolyzed Chloride 104 98 - 108 mmol/L 03/24/2024 4:52 AM [facility] Bicarbonate 21 21 - 32 mmol/L 03/24/2024 4:52 AM [facility] Anion Gap 17 10 - 20 mmol/L 03/24/2024 4:52 AM [facility] Glucose 127(H) 65 - 99 mg/dL 03/24/2024 4:52 AM [facility] BUN 12 8 - 25 mg/dL 03/24/2024 4:52 AM [facility] Creatinine 1.10 0.50 - 1.30 mg/dL 03/24/2024 4:52 AM [facility] eGFR 79 >=60 mL/min/1.7 3 m2 03/24/2024 4:52 AM [facility] Comment:Estimated GFR was ca lculated using the 2020 CKD-EPI creatinine equation. BUN/Creatinine Ratio 10.9 10.0 - 20.0 03/24/2024 4:52 AM [facility] Calcium 8.6 8.4 - 10.2 mg/dL 03/24/2024 4:52 AM [facility] Blood BLOOD SPECIMEN / Unknown Venipuncture / Unknown 03/24/2024 2:42 AM EST 03/24/2024 3:53 AM [facility] - 03/24/2024 4:52 AM [facility] has implemented the eGFR calculation approach that does not have a coefficient for race that conforms to the NKF-ASN Task Force Recommendations. us Luis Ruggiero MD LAB BLOOD ORDERABLES Final Result [facility] [address] [place] [address] * Sputum Aerobic Culture (03/24/2024 12:51 AM [facility]) Culture Normal Ariadna after 48 hrs 03/26/2024 11:45 AM [facility] Gram Stain Result No Epithelial Cells Seen 03/26/2024 11:45 AM [facility] Gram Stain Result Many WBC 03/26/2024 11:45 AM [facility] Gram Stain Result Many Mixed Ariadna 03/26/2024 11:45 AM [facility] Sputum COUGHED SPUTUM SPECIMEN / Unknown 03/24/2024 12:51 AM EST 03/24/2024 1:37 AM EST Luis Ruggiero MD MICROBIOLOGY - GENER AL ORDERABLES Final Result [facility] [address] [place] [address] * Respiratory PCR Panel (03/24/2024 12:51 AM EST) Influenza A Not Detected Not Detected 03/24/2024 3:20 AM [facility] Influenza B Not Detected Not Detected 03/24/2024 3:20 AM [facility] Parainfluenza Virus 1 Not Detected Not Detected 03/24/2024 3:20 AM [facility] Parainfluenza Virus 2 Not Detected Not Detected 03/24/2024 3:20 AM [facility] Parainfluenza Virus 3 Not Detected Not Detected 03/24/2024 3:20 AM [facility] Parainfluenza Virus 4 Not Detected Not Detected 03/24/2024 3:20 AM [facility] Respiratory Syncytial Virus Not Detected Not Detected 03/24/2024 3:20 AM [facility] Human Metapneumovirus Not Detected Not Detected 03/24/2024 3:20 AM [facility] Human Rhinovirus/Enterov irus Not Detected Not Detected 03/24/2024 3:20 AM [facility] Adenovirus Not Detected Not Detected 03/24/2024 3:20 AM [facility] Coronavirus 229E Not Detected Not Detected 03/24/2024 3:20 AM [facility] Coronavirus HKU1 Not Detected Not Detected 03/24/2024 3:20 AM [facility] Coronavirus NL63 Not Detected Not Detected 03/24/2024 3:20 AM [facility] Coronavirus OC43 Not Detected Not Detected 03/24/2024 3:20 AM [facility] Bordetella parapertussis Not Detected Not Detected 03/24/2024 3:20 AM [facility] Bordetella pertussis Not Detected Not Detected 03/24/2024 3:20 AM [facility] Mycoplasma pneumoniae Not Detected Not Detected 03/24/2024 3:20 AM [facility] Chlamydia pneumoniae Not Detected Not Detected 03/24/2024 3:20 AM [facility] SARS-CoV-2 Not Detected Not Detected 03/24/2024 3:20 AM [facility] Swab NASOPHARYNGEAL SWAB / Unknown 03/24/2024 12:51 AM EST 03/24/2024 1:36 AM EST us Luis Ruggiero MD MICROBIOLOGY - GENER AL ORDERABLES Final Result Performing Organization Address City/[facility]/ZIP Co de Phone Number [facility] [address] [place] [id number] * Troponin x 2 (Now and Repeat in 3 hours) (03/23/2024 11:19 PM EST) Troponin T 17 <=22 ng/L 03/23/2024 11:55 PM [facility] Delta Difference Troponin T 4 < = -/+ 7 change ng/L 03/23/2024 11:55 PM [facility] Interp Troponin T Delta Change No biomarker evidence of cardiac injury. 03/23/2024 11:55 PM [facility] Blood BLOOD SPECIMEN / Unknown Venipuncture / Unknown 03/23/2024 11:19 PM EST 03/23/2024 11:37 PM EST us Gavin Cain MD LAB BLOOD ORDERABLE S Final Result [facility] [address] [place], [place] [id number] * (ABNORMAL) POC Venous Blood Gases with Full Panel (03/23/2024 8:21 PM EST) pH, Venous 7.44(H) 7.32 - 7.42 03/23/2024 8:27 PM [facility] pCO2, Aleksandr 36.7(L) 41.0 - 51.0 mm Hg 03/23/2024 8:27 PM [facility] pO2, Aleksandr 44(H) 25 - 40 mm Hg 03/23/2024 8:27 PM [facility] Base Excess, Aleksandr 0.7 -2.0 - 2.0 03/23/2024 8:27 PM [facility] O2 Sat, Aleksandr 81.4(H) 40.0 - 70.0 % 03/23/2024 8:27 PM [facility] Hemoglobin, Calculated 15.5 13.5 - 17.5 g/dL 03/23/2024 8:27 PM [facility] Hematocrit 46 41 - 53 % 03/23/2024 8:27 PM [facility] Glucose 102(H) 65 - 99 mg/dL 03/23/2024 8:27 PM [facility] BUN 10 8 - 25 mg/dL 03/23/2024 8:27 PM [facility] Creatinine 1.08 0.50 - 1.30 mg/dL 03/23/2024 8:27 PM [facility] GFR 81 >=60 mL/min/1.7 3 m2 03/23/2024 8:27 PM [facility] Comment:Estimated GFR was ca lculated using the 2020 CKD-EPI creatinine equation. Sodium 142 135 - 145 mmol/L 03/23/2024 8:27 PM [facility] Potassium 3.8 3.5 - 5.1 mmol/L 03/23/2024 8:27 PM [facility] Chloride 105 98 - 108 mmol/L 03/23/2024 8:27 PM [facility] TCO2 24 21 - 32 mmol/L 03/23/2024 8:27 PM [facility] Lactate 1.9 0.6 - 2.0 mmol/L 03/23/2024 8:27 PM [facility] Ionized Calcium 4.6 4.5 - 5.3 mg/dL 03/23/2024 8:27 PM [facility] Blood BLOOD SPECIMEN / Unknown 03/23/2024 8:21 PM EST 03/23/2024 8:23 PM EST Narrative [facility] - 03/23/2024 8:27 PM EST [facility] has implemented the eGFR calculation approach that does not have a coefficient for race that conforms to the NKF-ASN Task Force Recommendations. [facility] POCT ORDERABLES - DE VICE Final Result [facility] [address] [place] [address] * XR Chest 1 View (03/23/2024 8:16 PM EST) Anatomical Region Laterality Modality Chest Digital Radiogra phy 03/23/2024 9:23 PM EST Impressions 03/23/2024 9:25 PM EST No acute cardiopulmonary process in the chest. Workstation ID: [id number] Narrative 03/23/2024 9:25 PM EST EXAMINATION: XR CHEST PA/AP CLINICAL STATEMENT: ORDERING [...] the lungs.There is no costophrenic angle blunting. Procedure Note Lisa Chao, DO - 03/23/2024 EXAMINATION: XR CHEST PA/AP CLINICAL STATEMENT: ORDERING [...] silhouette is not enlarged. There is no pulmonaryvascular congestion. The patient is status post median sternotomy. Noacute infiltrates are present within the lungs.There is no costophrenicangle blunting. IMPRESSION: No acute cardiopulmonary process in the chest. Workstation ID: [id number] us Gavin Cain MD IMG DIAGNOSTIC IMAG ING ORDERABLES Final Result * (ABNORMAL) CBC Auto Differential (03/23/2024 7:59 PM EST) WBC 9.18 4.50 - 11.00 K/mcL 03/23/2024 8:24 PM [facility] RBC 5.03 4.50 - 5.90 M/mcL 03/23/2024 8:24 PM [facility] Hemoglobin 14.1 13.5 - 17.5 g/dL 03/23/2024 8:24 PM [facility] Hematocrit 41.8 41.0 - 53.0 % 03/23/2024 8:24 PM [facility] MCV 83.1 80.0 - 100.0 fL 03/23/2024 8:24 PM [facility] MCH 28.0 26.0 - 34.0 pg 03/23/2024 8:24 PM [facility] MCHC 33.7 31.0 - 37.0 g/dL 03/23/2024 8:24 PM [facility] Platelets 346 150 - 400 K/mcL 03/23/2024 8:24 PM [facility] RDW - CV 12.7 11.6 - 14.8 % 03/23/2024 8:24 PM [facility] MPV 9.6 9.4 - 12.4 fL 03/23/2024 8:24 PM [facility] Neutrophils 62.1 % 03/23/2024 8:24 PM [facility] Lymphocytes 24.3 % 03/23/2024 8:24 PM [facility] Monocytes 10.3 % 03/23/2024 8:24 PM [facility] Eosinophils 2.3 % 03/23/2024 8:24 PM [facility] Basophils 0.3 % 03/23/2024 8:24 PM [facility] IG Percent 0.70 % 03/23/2024 8:24 PM [facility] Comment:The IG parameter is the percentage of metamyelocytes, myelocytes and promyelocytes. An immature granulocyte count (IG) of 1% or more suggests the possibility of infection, an IG count of 3% is very likely related to an infection. Neutrophils Abs 5.70 1.70 - 7.00 K/mcL 03/23/2024 8:24 PM [facility] Lymphocytes Abs 2.23 0.90 - 4.00 K/mcL 03/23/2024 8:24 PM [facility] Monocytes Abs 0.95(H) 0.30 - 0.90 K/mcL 03/23/2024 8:24 PM [facility] Eosinophils Abs 0.21 0.00 - 0.50 K/mcL 03/23/2024 8:24 PM [facility] Basophils Abs 0.03 0.00 - 0.30 K/mcL 03/23/2024 8:24 PM [facility] IG Absolute 0.06 0.00 - 0.30 K/mcL 03/23/2024 8:24 PM [facility] Nucleated RBC 0.0 % 03/23/2024 8:24 PM [facility] Nucleated RBC Abs 0.00 0.00 - 0.00 K/mcL 03/23/2024 8:24 PM [facility] Blood BLOOD SPECIMEN / Unknown Venipuncture / Unknown 03/23/2024 7:59 PM EST 03/23/2024 8:06 PM EST us Gavin Cain MD LAB BLOOD ORDERABLE S Final Result [facility] [address] [place] [address] * Liver Function Tests (LFTs) (03/23/2024 7:59 PM EST) Total Protein 7.0 6.0 - 8.0 g/dL 03/23/2024 8:57 PM [facility] Albumin 3.6 3.2 - 5.2 g/dL 03/23/2024 8:57 PM [facility] Total Bilirubin 0.3 0.0 - 1.3 mg/dL 03/23/2024 8:57 PM [facility] Bilirubin, Direct <0.2 0.0 - 0.4 mg/dL 03/23/2024 8:57 PM [facility] Alkaline Phosphatase 87 40 - 150 U/L 03/23/2024 8:57 PM [facility] AST 26 0-50 U/L U/L 03/23/2024 8:57 PM [facility] ALT 36 0-50 U/L U/L 03/23/2024 8:57 PM [facility] Blood BLOOD SPECIMEN / Unknown Venipuncture / Unknown 03/23/2024 7:59 PM EST 03/23/2024 8:06 PM EST us Gavin Cain MD LAB BLOOD ORDERABLE S Final Result [facility] [address] [place] [address] * Troponin x 2 (Now and Repeat in 3 hours) (03/23/2024 7:59 PM EST) Troponin T 13 <=22 ng/L 03/23/2024 8:57 PM [facility] Troponin T Interpretation Normal 03/23/2024 8:57 PM [facility] Blood BLOOD SPECIMEN / Unknown Venipuncture / Unknown 03/23/2024 7:59 PM EST 03/23/2024 8:06 PM EST us Gavin Cain MD LAB BLOOD ORDERABLE S Final Result [facility] [address] [place] [address] * (ABNORMAL) BMP (03/23/2024 7:59 PM EST) Sodium 139 135 - 145 mmol/L 03/23/2024 8:57 PM [facility] Potassium 3.8 3.5 - 5.1 mmol/L 03/23/2024 8:57 PM [facility] Chloride 106 98 - 108 mmol/L 03/23/2024 8:57 PM [facility] Bicarbonate 22 21 - 32 mmol/L 03/23/2024 8:57 PM [facility] Anion Gap 15 10 - 20 mmol/L 03/23/2024 8:57 PM [facility] Glucose 106(H) 65 - 99 mg/dL 03/23/2024 8:57 PM [facility] BUN 11 8 - 25 mg/dL 03/23/2024 8:57 PM [facility] Creatinine 1.09 0.50 - 1.30 mg/dL 03/23/2024 8:57 PM [facility] eGFR 80 >=60 mL/min/1.7 3 m2 03/23/2024 8:57 PM [facility] Comment:Estimated GFR was ca lculated using the 2020 CKD-EPI creatinine equation. BUN/Creatinine Ratio 10.1 10.0 - 20.0 03/23/2024 8:57 PM [facility] Calcium 9.0 8.4 - 10.2 mg/dL 03/23/2024 8:57 PM [facility] Blood BLOOD SPECIMEN / Unknown Venipuncture / Unknown 03/23/2024 7:59 PM EST 03/23/2024 8:06 PM EST [facility] - 03/23/2024 8:57 PM EST [facility] has implemented the eGFR calculation approach that does not have a coefficient for race that conforms to the NKF-ASN Task Force Recommendations. Gavin Cain MD LAB BLOOD ORDERABLE S Final Result Performing Organization Address [facility] Co de Phone Number [facility] [address] [place], [place] [id number] * Bogart Top (03/23/2024 7:59 PM EST) Blood BLOOD SPECIMEN / Unknown Venipuncture / Unknown 03/23/2024 7:59 PM EST 03/23/2024 8:06 PM EST us Gavin Cain MD LAB BLOOD ORDERABLE S Final Result Performing Organization Address [facility] Co de Phone Number [facility] [address] [place], [place] [phone] * Griffith Top (03/23/2024 7:59 PM EST) Extra Tube Hold for add-ons. 03/23/2024 9:58 PM EST [facility] Comment:Auto resulted. Blood BLOOD SPECIMEN / Unknown Venipuncture / Unknown 03/23/2024 7:59 PM EST 03/23/2024 8:06 PM EST Gavin Cain MD LAB BLOOD ORDERABLE S Final Result Performing Organization Address [facility] de Phone Number [facility] [address] [place] [phone] * Light Blue Top (03/23/2024 7:59 PM EST) Extra Tube Hold for add-ons. 03/23/2024 9:58 PM EST [facility] Comment:Auto resulted. Blood BLOOD SPECIMEN / Unknown Venipuncture / Unknown 03/23/2024 7:59 PM EST 03/23/2024 8:06 PM EST Gavin Cain MD LAB BLOOD ORDERABLE S Final Result Performing Organization Address City/[facility]/ZIP Co de Phone Number [facility] [address] [place] [phone] * Gold Top (03/23/2024 7:59 PM EST) Extra Tube Hold for add-ons. 03/23/2024 11:59 PM EST [facility] Comment:Auto resulted. Blood BLOOD SPECIMEN / Unknown Venipuncture / Unknown 03/23/2024 7:59 PM EST 03/23/2024 8:06 PM EST us Gavin Cain MD LAB BLOOD ORDERABLE S Final Result [facility] [address] [place] [phone] * Mint Green Top (03/23/2024 7:59 PM EST) Extra Tube Hold for add-ons. 03/23/2024 9:58 PM EST [facility] Comment:Auto resulted. Blood BLOOD SPECIMEN / Unknown Venipuncture / Unknown 03/23/2024 7:59 PM EST 03/23/2024 8:06 PM EST us Gavin Cain MD LAB BLOOD ORDERABLE S Final Result [facility] [address] [place] [phone] * Lavender Top (03/23/2024 7:59 PM EST) Extra Tube Hold for add-ons. 03/23/2024 9:58 PM EST [facility] Comment:Auto resulted. Blood BLOOD SPECIMEN / Unknown Venipuncture / Unknown 03/23/2024 7:59 PM EST 03/23/2024 8:06 PM EST us Gavin Cain MD LAB BLOOD ORDERABLE S Final Result [facility] [address] [place] [phone] * EKG 12-lead (03/23/2024 7:44 PM EST) Ventricular Rate 71 BPM MUSE Atrial Rate 71 BPM MUSE P-R Interval 140 ms MUSE QRS Duration 82 ms MUSE Q-T Interval 412 ms MUSE QTC Calculation (Bezet) 447 ms MUSE P [place] 57 degrees MUSE R [place] 25 degrees MUSE T [place] 62 degrees MUSE 03/23/2024 7:44 PM EST 03/24/2024 8:37 AM EST Narrative MUSE - 03/24/2024 8:37 AM EST Sinus rhythm with Premature atrial complexes Abnormal ECG Confirmed by Clay Florez ([id number]) on 03/24/2024 8:37:04 AM us Gavin Cain MD ECG ORDERABLES Fin al Result MUSE documented in this encounter Visit Diagnoses Diagnosis Chest pain- Primary Unspecified chest pain Chest pain with high risk for cardiac etiology History of CAD (coronary artery disease) Hypertension, unspecified type Shortness of breath documented in this encounter Admitting Diagnoses Diagnosis Chest pain Unspecified chest pain documented in this encounter Administered Medications Inactive Administered Medications - up to 3 most recent administrations Medication Order MAR Action Action Date Dose Rate Site albuterol (PROVENTIL) 2.5 mg /3 mL (0.083 %) nebulizer solution 2.5 mg 2.5 mg, Nebulization, Every 4 hours PRN (RT), wheezing, shortness of breath, Starting on Wed03/23/24 at 2303 albuterol inhaler 2 puff 2 puff, Inhalation, Once in imaging, wheezing, Prior to cardiac stress test, IF wheezing, Starting on Wed03/24/24 at 0840, For 48 hours, SPACER REQUIRED FOR ADMINISTRATION aspirin chewable tablet 324 mg 324 mg, Oral, Once, On Wed03/23/24 at 2010, For 1 dose, Chew 4 tablets and swallow Given 03/23/2024 8:55 PM EST 324 mg aspirin chewable tablet 81 mg 81 mg, Oral, Daily, First dose on Wed03/24/24 at 0900 Given 03/24/2024 10:14 AM EST 81 mg carvediloL (COREG) tablet 12.5 mg 12.5 mg, Oral, 2 times daily, First dose on Wed03/23/24 at 2305, Give carvedilol with food to reduce risk of hypotension / dizziness. Separate from admin of JARRET inhibitors by two hours. Given 03/24/2024 12:15 AM EST 12.5 mg carvediloL (COREG) tablet 12.5 mg 12.5 mg, Oral, 2 times daily, First dose on Wed03/24/24 at 0945, Give carvedilol with food to reduce risk of hypotension / dizziness. Separate from admin of JARRET inhibitors by two hours. Given 03/24/2024 10:14 AM EST 12.5 mg clopidogreL (PLAVIX) tablet 75 mg 75 mg, Oral, Daily, First dose on Wed03/24/24 at 0900 Given 03/24/2024 10:14 AM EST 75 mg ezetimibe (ZETIA) tablet 10 mg 10 mg, Oral, Daily, First dose on Wed03/24/24 at 0900 Given 03/24/2024 10:14 AM EST 10 mg ipratropium-albuteroL (DUO-NEB) 0.5-2.5 mg/3 ml nebulizer solution 3 mL 3 mL, Inhalation, Once (RT), On Wed03/23/24 at 2015, For 1 dose Given 03/23/2024 8:17 PM EST 3 mL ipratropium-albuteroL (DUO-NEB) 0.5-2.5 mg/3 ml nebulizer solution 3 mL 3 mL, Inhalation, Every 4 hours scheduled (RT), First dose on Wed03/24/24 at 0000, Only when awake. Given 03/24/2024 7:29 AM EST 3 mL Given 03/24/2024 3:53 AM EST 3 mL Given 03/24/2024 12:17 AM EST 3 mL morphine injection 1 mg 1 mg, Intravenous, Once, On Wed03/24/24 at 0515, For 1 dose Given 03/24/2024 4:25 AM EST 1 mg morphine syringe 4 mg 4 mg, Intravenous, Once, On Wed03/23/24 at 2010, For 1 dose Given 03/23/2024 8:56 PM EST 4 mg morphine syringe 4 mg 4 mg, Intravenous, Once, On Jessica 03/23/24 at 2125, For 1 dose Given 03/23/2024 9:48 PM EST 4 mg naloxone (NARCAN) injection 0.1 mg 0.1 mg, Intravenous, As needed, opioid reversal, For respiratory rate less than or equal to 8 per minute., Starting on Wed03/23/24 at 2007, Mix nalOXone (NARCAN) 0.4 mg (1mL) with 9 mL of Normal Saline to total 10 mL. Administer 0.1 mg (2.5mL) IV Push every 2 minutes until respiratory rate is 10 or greater. naloxone (NARCAN) injection 0.4 mg 0.4 mg, Intravenous, As needed, opioid reversal, patient is pulseless, breathless, and unresponsive, Starting on Jessica 03/23/24 at 2007, Call a code first, then administer naloxone dose undiluted IV Push over 30 seconds. nicotine (NICODERM CQ) 21 mg/24 hr 1 patch 1 patch, Transdermal, Administer over 24 Hours, Every 24 hours, First dose on Wed03/24/24 at 0600, U/P Listed Hazardous Drug. Waste Must Be Disposed in [employer] Waste Container Patch Applied 03/24/2024 5:47 AM EST 1 patch Right Arm nitroGLYCERIN (NITRO-BID) 2 % ointment 1 inch 1 inch, Topical, Once, On Wed03/23/24 at 2009, For 1 dose, Hold for SBP less than 90. Given 03/23/2024 8:56 PM EST 1 inch ondansetron (ZOFRAN) injection 4 mg 4 mg, Intravenous, Once, On Wed03/23/24 at 2009, For 1 dose Given 03/23/2024 8:56 PM EST 4 mg QUEtiapine (SEROQUEL) tablet 50 mg 50 mg, Oral, Nightly, First dose on Wed03/23/24 at 2305, May cause QT interval prolongation. Given 03/24/2024 12:15 AM EST 50 mg ranolazine (RANEXA) 12 hr tablet 500 mg 500 mg, Oral, 2 times daily, First dose on Wed03/23/24 at 2305, DO NOT CRUSH OR CHEW. Given 03/24/2024 10:14 AM EST 500 mg Given 03/24/2024 12:15 AM EST 500 mg sodium chloride (PF) (NS) flush 5 mL 5 mL, Intravenous, As needed, line care, Starting on Jessica 03/23/24 at 2300 sodium chloride (PF) (NS) flush 5 mL 5 mL, Intravenous, Every 8 hours scheduled, First dose on Jessica 03/23/24 at 2315, Saline lock Given 03/24/2024 4:28 AM EST 5 mL sodium chloride 0.9% (NS) 0-150 mL/hr, Intravenous, As needed, To flush line after IV infusions when no maintenance IV ordered or a compatibility issue. Infuse 20ml at the same rate as the secondary infusion, Starting on Jessica 03/23/24 at 2300, Run as Primary IV. NOT intended for KVO. spironolactone (ALDACTONE) tablet 25 mg 25 mg, Oral, Daily, First dose on Wed03/24/24 at 0900, CATEGORY C HAZARDOUS DRUG use safe handling precautions. Use reference link to view PPE guidelines. Minimize crushing/splitting only to situations where clinically necessary. Given 03/24/2024 10:14 AM EST 25 mg documented in this encounter Active and Recently Administered Medications Times are shown in EST. Scheduled Medication Order 03/22/2024 03/23/2024 03/24/2024 ARIPiprazole (ABILIFY) disintegrating tablet 10 mg 10 mg, Oral, Daily, First dose on Wed03/24/24 at 0900, Formulation requires tablet remain in sealed package until immediately prior to dose being administered. 1014 (Not Given - Provider: Urvashi Ware RN - Reason: Patient/family refused) aspirin chewable tablet 324 mg (COMPLETED) 324 mg, Oral, Once, On Jessica 03/23/24 at 2009, For 1 dose, Chew 4 tablets and swallow 2054 (Given - Provider: Kimberly Frey RN) aspirin chewable tablet 81 mg 81 mg, Oral, Daily, First dose on Wed03/24/24 at 0900 1014 (Given - Provid er: Urvashi Ware RN) atorvastatin (LIPITOR) tablet 80 mg 80 mg, Oral, Nightly, First dose on Wed03/24/24 at 2100 carvediloL (COREG) tablet 12.5 mg (CANCELED) 12.5 mg, Oral, 2 times daily, First dose on Jessica 03/23/24 at 2305, Give carvedilol with food to reduce risk of hypotension / dizziness. Separate from admin of JARRET inhibitors by two hours. 0015 (Given - Provid er: Love Kaminski RN) carvediloL (COREG) tablet 12.5 mg 12.5 mg, Oral, 2 times daily, First dose on Wed03/24/24 at 0945, Give carvedilol with food to reduce risk of hypotension / dizziness. Separate from admin of JARRET inhibitors by two hours. 1014 (Given - Provid er: Urvashi Ware RN) clopidogreL (PLAVIX) tablet 75 mg 75 mg, Oral, Daily, First dose on Wed03/24/24 at 0900 1014 (Given - Provid er: Urvashi Ware RN) enoxaparin (LOVENOX) syringe 40 mg 40 mg, Subcutaneous, Daily, First dose on Wed03/24/24 at 0900, Administer in abdomen unless otherwise directed by prescriber. Notify physician if patient refuses., Indication: VTE Prophylaxis 1014 (Not Given - Provider: Urvashi Ware RN - Reason: Patient/family refused) ezetimibe (ZETIA) tablet 10 mg 10 mg, Oral, Daily, First dose on Wed03/24/24 at 0900 1014 (Given - Provid er: Urvashi Ware RN) ipratropium-albuteroL (DUO-NEB) 0.5-2.5 mg/3 ml nebulizer solution 3 mL (COMPLETED) 3 mL, Inhalation, Once (RT), On Jessica 03/23/24 at 2015, For 1 dose 2017 (Given - Provider: Jaime Whalen, ARON) ipratropium-albuteroL (DUO-NEB) 0.5-2.5 mg/3 ml nebulizer solution 3 mL 3 mL, Inhalation, Every 4 hours scheduled (RT), First dose on Wed03/24/24 at 0000, Only when awake. 0017 (Given - Provid er: Maikol Troncoso, ARON)0353 (Given - Provider: Maikol Troncoso, ARON)0729 (Given - Provider: Mehdi Roth, ARON) losartan (COZAAR) tablet 50 mg 50 mg, Oral, Daily with lunch, First dose on Wed03/24/24 at 1200 morphine injection 1 mg (COMPLETED) 1 mg, Intravenous, Once, On Wed03/24/24 at 0515, For 1 dose 0425 (Given - Provid er: Love Kaminski RN) morphine syringe 4 mg (COMPLETED) 4 mg, Intravenous, Once, On Wed03/23/24 at 2009, For 1 dose 2055 (Given - Provider: Kimberly Frey RN) morphine syringe 4 mg (COMPLETED) 4 mg, Intravenous, Once, On Wed03/23/24 at 2124, For 1 dose 2147 (Given - Provider: Kimberly Frey RN) nicotine (NICODERM CQ) 21 mg/24 hr 1 patch 1 patch, Transdermal, Administer over 24 Hours, Every 24 hours, First dose on Wed03/24/24 at 0600, U/P Listed Hazardous Drug. Waste Must Be Disposed in [employer] Waste Container 0547 (Patch Applied - Provider: Love Kaminski RN)1044 (Due: Patch Removed - Provider: Discharge Provider, Automatic - Comment: Time automatically adjusted from order being discontinued) nitroGLYCERIN (NITRO-BID) 2 % ointment 1 inch (COMPLETED) 1 inch, Topical, Once, On Wed03/23/24 at 2009, For 1 dose, Hold for SBP less than 90. 2055 (Given - Provider: Kimberly Frey RN) ondansetron (ZOFRAN) injection 4 mg (COMPLETED) 4 mg, Intravenous, Once, On Wed03/23/24 at 2009, For 1 dose 2055 (Given - Provider: Kimberly Frey RN) QUEtiapine (SEROQUEL) tablet 50 mg 50 mg, Oral, Nightly, First dose on Wed03/23/24 at 2305, May cause QT interval prolongation. 0015 (Given - Provid er: Love Kaminski RN) ranolazine (RANEXA) 12 hr tablet 500 mg 500 mg, Oral, 2 times daily, First dose on Wed03/23/24 at 2305, DO NOT CRUSH OR CHEW. 0015 (Given - Provid er: Love Kaminski RN)1014 (Given - Provider: Urvashi Ware RN) sodium chloride (PF) (NS) flush 5 mL(Linked Group 1) 5 mL, Intravenous, Every 8 hours scheduled, First dose on Wed03/23/24 at 2315, Saline lock 2305 (Canceled Entry - Provider: Rajwinder Jordan RN)2315 (Canceled Entry - Provider: Love Kaminski RN) 4441 (Given - Provider: Love Kaminski RN) spironolactone (ALDACTONE) tablet 25 mg 25 mg, Oral, Daily, First dose on Wed03/24/24 at 0900, CATEGORY C HAZARDOUS DRUG use safe handling precautions. Use reference link to view PPE guidelines. Minimize crushing/splitting only to situations where clinically necessary. 1014 (Given - Provid er: Urvashi Ware RN) PRN Medication Order 03/22/2024 03/23/2024 03/24/2024 albuterol (PROVENTIL) 2.5 mg /3 mL (0.083 %) nebulizer solution 2.5 mg 2.5 mg, Nebulization, Every 4 hours PRN (RT), wheezing, shortness of breath, Starting on Jessica 03/23/24 at 2303 albuterol inhaler 2 puff 2 puff, Inhalation, Once in imaging, wheezing, Prior to cardiac stress test, IF wheezing, Starting on Wed03/24/24 at 0840, For 48 hours, SPACER REQUIRED FOR ADMINISTRATION melatonin tablet 3 mg 3 mg, Oral, Nightly PRN, Sleep, Starting on Wed03/23/24 at 2300 naloxone (NARCAN) injection 0.1 mg(Linked Group 2) 0.1 mg, Intravenous, As needed, opioid reversal, For respiratory rate less than or equal to 8 per minute., Starting on Wed03/23/24 at 2007, Mix nalOXone (NARCAN) 0.4 mg (1mL) with 9 mL of Normal Saline to total 10 mL. Administer 0.1 mg (2.5mL) IV Push every 2 minutes until respiratory rate is 10 or greater. naloxone (NARCAN) injection 0.4 mg(Linked Group 2) 0.4 mg, Intravenous, As needed, opioid reversal, patient is pulseless, breathless, and unresponsive, Starting on Wed03/23/24 at 2007, Call a code first, then administer naloxone dose undiluted IV Push over 30 seconds. sodium chloride (PF) (NS) flush 5 mL(Linked Group 1) 5 mL, Intravenous, As needed, line care, Starting on Wed03/23/24 at 2300 sodium chloride 0.9% (NS)(Linked Group 1) 0-150 mL/hr, Intravenous, As needed, To flush line after IV infusions when no maintenance IV ordered or a compatibility issue. Infuse 20ml at the same rate as the secondary infusion, Starting on Jessica 03/23/24 at 2300, Run as Primary IV. NOT intended for KVO. Linked Groups Order Group 1: Saline lock IV (CANCELED) Routine, Continuous, Starting on Jessica 03/23/24 at 2305, Until Specified And sodium chloride (PF) (NS) flush 5 mLJump to med 5 mL, Intravenous, As needed, line care, Starting on Jessica 03/23/24 at 2300 And sodium chloride (PF) (NS) flush 5 mLJump to med 5 mL, Intravenous, Every 8 hours scheduled, First dose on Jessica 03/23/24 at 2315, Saline lock And sodium chloride 0.9% (NS)Jump to med 0-150 mL/hr, Intravenous, As needed, To flush line after IV infusions when no maintenance IV ordered or a compatibility issue. Infuse 20ml at the same rate as the secondary infusion, Starting on Jessica 03/23/24 at 2300, Run as Primary IV. NOT intended for KVO. Group 2: naloxone (NARCAN) injection 0.1 mgJump to med 0.1 mg, Intravenous, As needed, opioid reversal, For respiratory rate less than or equal to 8 per minute., Starting on Jessica 03/23/24 at 2007, Mix nalOXone (NARCAN) 0.4 mg (1mL) with 9 mL of Normal Saline to total 10 mL. Administer 0.1 mg (2.5mL) IV Push every 2 minutes until respiratory rate is 10 or greater. And Notify physician (CANCELED) STAT, Until discontinued, Starting on Jessica 03/23/24 at 2009, Until Specified, Respiratory rate less than: 8, For respiratory rate less than or equal to 8, notify physician and/or appropriate staff for additional orders. And naloxone (NARCAN) injection 0.4 mgJump to med 0.4 mg, Intravenous, As needed, opioid reversal, patient is pulseless, breathless, and unresponsive, Starting on Jessica 03/23/24 at 2007, Call a code first, then administer naloxone dose undiluted IV Push over 30 seconds. 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
--- OUTSIDE RECORDS SUMMARY | 2024-04-09 16:19 | XMS_ITS | Clinical Summary ---
Author Organization [facility] Address [address] [place] [address] Care Team Providers Care Disability Examiner Name Role Phone Unavailable Primary Care Provider Unavailabl e Allergies No known active allergies Medications Medication Sig Dispensed Refills Start Date End Date Status Albuterol 108 (90 Base) MCG/ACT Aero Soln inhaler Inhale 1 puff every 6 hours as needed for Shortness of Breath. Active aripiprazole 10 MG tablet Take 1 tablet by mouth daily. Active aspirin 81 MG Chew Tab chewable tablet Chew 1 tablet daily. Active Atorvastatin 40 MG tablet Take 2 tablets by mouth daily. Active calcium carbonate 1250 (500 Ca) MG tablet Take 1 tablet by mouth daily. Active carveDILOL 12.5 MG tablet Take 1 tablet by mouth 2 times daily with meals. Active Clopidogrel 75 MG tablet Take 1 tablet by mouth daily. Active escitalopram 20 MG tablet Take 1 tablet by mouth daily. Active Ezetimibe (Zetia) 10 MG tablet Take 1 tablet by mouth daily. Active Losartan 50 MG tablet Take 1 tablet by mouth daily. Active QUEtiapine 50 MG tablet Take 1 tablet by mouth 2 times daily. Active Ranolazine 500 MG Tab SR 12 HR tablet Take 1 tablet by mouth 2 times daily. Active Spironolactone 25 MG tablet Take 1 tablet by mouth daily. Active Encounters Date Type Department Care Team Description 03/18/2024 9:19 AM EST - 03/18/2024 2:49 PM EST Emergency [facility] Emergency Department [address] [place] [address] Sridhar Shaffer III, DO Discharge Disposition: Home or Self Care 03/18/2024 Travel from Last 3 Months Social History Tobacco Use Types Packs/Day Years Used Date Smoking Tobacco: Never Assessed Sex and Gender Information Value Date Recorded Sex Assigned at Not on file Gender Identity Not on file Sexual Orientation Not on file Last Filed Vital Signs Vital Sign Reading Time Taken Comments Blood Pressure 109/68 03/18/2024 1:00 PM EST Pulse 72 03/18/2024 1:00 PM EST Temperature 36.4 C (97.6 F) 03/18/2024 1:00 PM EST Respiratory Rate 21 03/18/2024 1:00 PM EST Oxygen Saturation 95% 03/18/2024 10:18 AM EST Inhaled Oxygen Concentration - - Weight 111.1 kg (245 lb) 03/18/2024 9:23 AM EST Height 177.8 cm (5' 10) 03/18/2024 9:23 AM EST Body Mass Index 35.15 03/18/2024 9:23 AM EST Plan of Treatment Health Maintenance Due Date Last Done Comments HEPATITIS C VIRUS SCREENING 1968 HIV SCREENING DISCUSSION 10/04/1983 HEP B VACCINE (1 of 3 - 19+ 3-dose series) 10/04/1987 LIPID SCREENING 2008 COLORECTAL CANCER SCREENING DISCUSSION 2013 ZOSTER (SHINGLES) VACCINE (1 of 2) 2018 TETANUS 11/06/2018 11/06/2008 PROSTATE CANCER SCREENING DISCUSSION 10/04/2023 COVID-19 VACCINE ( - 2023-2 5 season) 2023 INFLUENZA VACCINE (#1) 2023 7, 02/06/2004, 01/16/2003 POTASSIUM 03/18/2025 03/18/2024 TDAP (ADULT) Completed 11/06/2008 PNEUMOCOCCAL VACCINE SERIES Aged Out No longer eligible based on patient's age to complete this topic Procedures Procedure Name Priority Date/Time Associated Diagnosis Comments TROPONIN STAT 03/18/2024 1:44 PM EST XR CHEST 1 VIEW PORTABLE STAT 03/18/2024 10:02 AM EST CBC AND ELECTRONIC DIFF STAT 03/18/2024 9:56 AM EST D-DIMER,QUANTITATIVE STAT 03/18/2024 9:56 AM EST LACTATE, BLOOD STAT 03/18/2024 9:56 AM EST CK STAT 03/18/2024 9:56 AM EST MAGNESIUM STAT 03/18/2024 9:56 AM EST TROPONIN STAT 03/18/2024 9:56 AM EST HEPATIC FUNCTION PANEL STAT 03/18/2024 9:56 AM EST BASIC METABOLIC PANEL STAT 03/18/2024 9:56 AM EST CBC, EDIF, PLATELET STAT 03/18/2024 9 :56 AM EST from Last 3 Months Results * TROPONIN (03/18/2024 1:44 PM EST) Only the most recent of2 resultswithin the time period is included. Troponin I 0.010 <0.033 ng/mL 03/18/2024 2:20 PM EST [facility], [facility] Comment: 0.034-0.110 INDETERMINATE >0.120 DIAGNOSTIC Blood Venipuncture / Unknown 03/18/2024 1:44 PM EST 03/18/2024 1:54 PM EST Sridhar Shaffer III, CHEMISTRY ORDERABL ES Performing Organization Address City/State/[facility] Co de Phone Number [facility], [place] [address] [place] [address] * XR CHEST 1 VIEW PORTABLE (03/18/2024 10:02 AM EST) Anatomical Region Laterality Modality Chest Computed Radiogr aphy 03/18/2024 10:2 1 AM EST Impressions 03/18/2024 10:22 AM EST IMPRESSION: No acute abnormality. Narrative 03/18/2024 10:22 AM EST EXAMINATION TYPE: [facility] XR CHEST 1 VIEW PORTABLE DATE OF EXAM : 03/18/2024 10:02 AM HISTORY: Chest pain COMPARISON: None FINDINGS: Median sternotomy. Normal heart size. Normal mediastinal silhouette. No acute infiltrate. No pleural effusion. No pneumothorax. Small granuloma in the right midlung. Procedure Note Vernon Hendricks MD - 03/18/2024 EXAMINATION TYPE: [facility] XR CHEST 1 VIEW PORTABLE DATE OF EXAM : 03/18/2024 10:02 AM HISTORY: Chest pain COMPARISON: None FINDINGS: Median sternotomy. Normal heart size. Normal mediastinal silhouette. Noacute infiltrate. No pleural effusion. No pneumothorax. Small granuloma in theright midlung. IMPRESSION IMPRESSION: No acute abnormality. Sridhar Shaffer III, DO DIAGNOSTIC IMAGING ORDERABLES * CBC AND ELECTRONIC DIFF (03/18/2024 9:56 AM EST) WBC Count 6.0 4.5 - 11.0 K/uL 03/18/2024 10:05 AM EST [facility] RBC Count 5.15 Male: 4.2-5.6, Female: 3.8-5.3 M/uL 03/18/2024 10:05 AM EST [facility] Hemoglobin 14.4 13.1 - 17.2 g/dL 03/18/2024 10:05 AM EST [facility] Hematocrit 42.7 39.0 - 50.0 % 03/18/2024 10:05 AM EST [facility] Mean Cell Volume 82.9 80.0 - 99.0 fL 03/18/2024 10:05 AM EST [facility] Mean Cell Hgb 27.9 Male: 27.0-35.0, Female: 27.0-34.0 pg 03/18/2024 10:05 AM EST [facility] Mean Cell Hgb Conc 33.6 32.0 - 36.0 g/dL 03/18/2024 10:05 AM EST [facility] RBC Distribution 14.2 11.5 - 14.5 % 03/18/2024 10:05 AM EST [facility] Platelet Count 202 150 - 400 K/uL 03/18/2024 10:05 AM EST [facility] Mean Platelet Volume 7.6 7.5 - 11.2 fL 03/18/2024 10:05 AM EST [facility] Segs + Bands,Absolute Auto 3.80 1.80 - 7.70 K/uL 03/18/2024 10:05 AM EST [facility] Lymphocyte % Auto 23.8 % 024 10:05 AM EST [facility] Monocyte % Auto 10.2 % 4 10:05 AM EST [facility] Eosinophil % Auto 2.4 % 024 10:05 AM EST [facility] Basophil % Auto 0.6 % 4 10:05 AM EST [facility] Segs + Bands Auto 63.0 % 024 10:05 AM EST [facility] Abs Lymph Auto 1.40 1.00 - 4.80 K/uL 03/18/2024 10:05 AM EST [facility] Abs Wright Auto 0.60 0.20 - 0.90 K/uL 03/18/2024 10:05 AM EST [facility] Abs Eos Auto 0.10 0.00 - 0.20 K/uL 03/18/2024 10:05 AM EST [facility] Abs Baso Auto 0.00 0.00 - 0.20 K/uL 03/18/2024 10:05 AM EST [facility] Blood Venipuncture / Unknown 03/18/2024 9:56 AM EST 03/18/2024 9:59 AM EST Sridhar Shaffer III DO HEMATOLOGY ORDERAB LES [facility], [place] [address] * LACTATE, BLOOD (03/18/2024 9:56 AM EST) Lactic Acid 1.2 0.5 - 2.2 mmol/L 03/18/2024 10:25 AM EST [facility] Blood Venipuncture / Unknown 03/18/2024 9:56 AM EST 03/18/2024 9:59 AM EST Sridhar Shaffer III DO CHEMISTRY ORDERABL ES Performing Organization Address City/[facility]/ZIP Co de Phone Number CL[facility] LAB[facility]ORY, [address] [address] * D-DIMER,QUANTITATIVE (03/18/2024 9:56 AM EST) Pathologist [facility] [place] D-Dimer, High Sensitivity 0.38 <0.50 mcg/mL FEU 03/18/2024 10:54 AM EST [facility] Blood Venipuncture / Unknown 03/18/2024 9:56 AM EST 03/18/2024 9:59 AM EST Sridhar Shaffer III DO COAGULATION Performing Organization Address City/[facility] Co de Phone Number [facility], [place] [phone] * MAGNESIUM (03/18/2024 9:56 AM EST) [facility] Magnesium 1.9 1.6 - 2.6 mg/dL 03/18/2024 10:25 AM EST [facility], [facility] Blood Venipuncture / Unknown 03/18/2024 9:56 AM EST 03/18/2024 9:59 AM EST Sridhar Shaffer III, DO CHEMISTRY ORDERABL ES Performing Organization Address City/[facility] Co de Phone Number [facility], [place] [phone] * (ABNORMAL) CK (03/18/2024 9:56 AM EST) Pathologist [facility] [place] Creatine Kinase 314(H) 30 - 200 U/L 03/18/2024 10:25 AM EST [facility], [facility] Blood Venipuncture / Unknown 03/18/2024 9:56 AM EST 03/18/2024 9:59 AM EST Sridhar Shaffer III, DO CHEMISTRY ORDERABL ES Performing Organization Address City/[facility] Co de Phone Number [facility], [place] [phone] * (ABNORMAL) HEPATIC FUNCTION PANEL (03/18/2024 9:56 AM EST) Pathologist [facility] [place] Albumin 3.7 3.5 - 5.2 g/dL 03/18/2024 10:25 AM EST [facility], [facility] Bilirubin Direct 0.2 0.0 - 0.5 mg/dL 03/18/2024 10:25 AM EST [facility] Bilirubin, Total 0.3 0.3 - 1.2 mg/dL 03/18/2024 10:25 AM EST [facility] Alkaline Phosphatase 77 40 - 150 U/L 03/18/2024 10:25 AM EST [facility] ALT (SGPT) 48 0 - 55 U/L 03/18/2024 10:25 AM EST [facility] Total Protein 7.0 6.4 - 8.3 g/dL 03/18/2024 10:25 AM EST [facility] AST 44(H) <39 U/L 03/18/2024 10:25 AM EST [facility], [facility] Blood Venipuncture / Unknown 03/18/2024 9:56 AM EST 03/18/2024 9:59 AM EST Sridhar Shaffer III, DO CHEMISTRY ORDERABL ES Performing Organization Address City/State/[facility] Co de Phone Number [facility], [place] [address] [place] [address] * (ABNORMAL) BASIC METABOLIC PANEL (03/18/2024 9:56 AM EST) Sodium 138 136 - 145 mmol/L 03/18/2024 10:25 AM EST [facility] Potassium 3.8 3.5 - 5.1 mmol/L 03/18/2024 10:25 AM EST [facility] Chloride 106 98 - 107 mmol/L 03/18/2024 10:25 AM EST [facility] Carbon Dioxide 21(L) 22 - 29 mmol/L 03/18/2024 10:25 AM EST [facility] BUN 16 8 - 26 mg/dL 03/18/2024 10:25 AM EST [facility] Creatinine 0.92 0.72 - 1.25 mg/dL 03/18/2024 10:25 AM EST [facility] Glucose 132(H) 70 - 105 mg/dL 03/18/2024 10:25 AM EST [facility] Calcium 9.2 8.4 - 10.2 mg/dL 03/18/2024 10:25 AM EST [facility] Anion Gap 15 mmol/L 03/18/2024 10:25 AM EST [facility] BUN/CREA Ratio 17 03/18/2024 10:25 AM EST [facility] Osmolality (Calc) 292 mOsm/kg 03/18/2024 10:25 AM EST [facility] Estimated GFR, 104 mL/min/1.7 3sqM 03/18/2024 10:25 AM EST [facility] Estimated GFR,Non 85 mL/min/1.7 3sqM 03/18/2024 10:25 AM EST [facility] Blood Venipuncture / Unknown 03/18/2024 9:56 AM EST 03/18/2024 9:59 AM EST Sridhar Shaffer III, CHEMISTRY ORDERABL ES Performing Organization Address City/State/[facility] de Phone Number [facility], [place] [address] [place] [address] from Last 3 Months
--- OUTSIDE RECORDS SUMMARY | 2024-04-09 16:19 | XMS_ITS | Encounter Summary ---
Author Organization [facility] Address [address] [place] [address] Phone Care Team Providers Care Environmental Protection Economist Name Role Phone Unavailable Primary Care Provider Unavailabl e Reason for Referral * Radiology (Emergency) - New Request Specialty Diagnoses / Procedures Referred By Kacey kaur Referred To Contact Procedures ECG Sridhar Shaffer III, DO [address] [place] [address] Referral ID Status Reason Start Date Expiration Date V isits Requested Visits Authorized [id number] New Request 03/18/2024 04/12/2025 1 1 Reason for Visit * Reason Comments Chest Pain Pt states he's been having chest pain x2 weeks. Pt states he was in the hospital last week in [place] for his asthma.Pt states today is different because he's tired of his chest hurting. Encounter Details Date Type Department Care Team ([facility] st Contact Info) Description 03/18/2024 9:19 AM EST - 03/18/2024 2:49 PM EST Emergency [facility] Emergency Department [address] [place] [address] Sridhar Shaffer III, DO [address] [place] [address] Discharge Disposition: Home or Self Care Social [...] Mass Index 35.15 03/18/2024 9:23 AM EST documented in this encounter Discharge Instructions * Discharge Instructions* Sridhar Shaffer III, DO - 03/18/2024 2:31 PM EST Follow-up with PCP and Cardiology when you return home Return the ED for change or concern: Pain, fever, shortness of breath Continue home medications as prescribed Stop smoking Tylenol as directed if needed for pain * Attachments The following attachments cannot be sent through Care Everywhere. * Chest Pain (Lithuanian) documented in this encounter Medications at Time of Discharge Medication Sig Dispensed Refills Start Date End Date Albuterol 108 (90 Base) MCG/ACT Aero Soln inhaler Inhale 1 puff every 6 hours as needed for Shortness of Breath. aripiprazole 10 MG tablet Take 1 tablet by mouth daily. aspirin 81 MG Chew Tab chewable tablet Chew 1 tablet daily. Atorvastatin 40 MG tablet Take 2 tablets by mouth daily. calcium carbonate 1250 (500 Ca) MG tablet Take 1 tablet by mouth daily. carveDILOL 12.5 MG tablet Take 1 tablet by mouth 2 times daily with meals. Clopidogrel 75 MG tablet Take 1 tablet by mouth daily. escitalopram 20 MG tablet Take 1 tablet by mouth daily. Ezetimibe (Zetia) 10 MG tablet Take 1 tablet by mouth daily. Losartan 50 MG tablet Take 1 tablet by mouth daily. QUEtiapine 50 MG tablet Take 1 tablet by mouth 2 times daily. Ranolazine 500 MG Tab SR 12 HR tablet Take 1 tablet by mouth 2 times daily. Spironolactone 25 MG tablet Take 1 tablet by mouth daily. documented as of this encounter ED Notes * Agata Patel RN - 03/18/2024 1:25 PM EST This RN visualized patient applying his own personal nicotine patch, (Nicoderm CQ) 21mg/24hr patch,one patch applied to pt's upper right arm * Sridhar Shaffer III, DO - 03/18/2024 9:35 AM EST History Chief Complaint Patient presents with Chest Pain Pt states he's been having chest pain x2 weeks. Pt states he was in the hospital last week in [place] for his asthma. Pt states today is [...] makes his left arm numb. He is notshort of breath. He has not been nauseous. [...] Exam BP 144/85 Pulse 75 Temp 97.3 ??F (36.3 ??C) Resp 18 Ht 1.778 m (5' 10) Wt 111.1 kg (245 lb) SpO2 100% BMI 35.15 kg/m?? Physical Exam Nursing notes have been reviewed [...] distension. No tenderness. No rebound and no guarding.No mass or organomegaly. No pulsatile mass. No CVA tenderness Musculoskeletal: Good muscle strength and normal range of motion in all 4 extremities with no signsof injury. No significant peripheral edema Neurological: Patient is alert and oriented to person, place, and time. Patient has normal strength. Coordination normal. Skin: Skin is warm and dry. No rash noted. Psychiatric: Patient has a calm mood and affect. Speech, behavior, and thought content normal. TESTS LABS: Sridhar Frances DO, have independently reviewed the following [...] Auto 1.40 1.00 - 4.80 K/uL Abs Sharp Auto 0.60 0.20 - 0.90 K/uL Abs Eos Auto 0.10 0.00 - 0.20 K/uL Abs Baso Auto 0.00 0.00 - 0.20 K/uL TROPONIN Result Value Ref Range Troponin I 0.010 <0.033 ng/mL XRAYS: XR CHEST 1 VIEW PORTABLE Result Date: 03/18/2024 EXAMINATION TYPE: [facility] XR CHEST 1 VIEW PORTABLE DATE [...] views. Clinical Indication: chest pain Comparison: None Findings:Support tubes and lines: EKG leads. Heart, mediastinum, and pulmonary vasculature: The cardiomediastinal silhouette is within normal limits for size and contour. 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 No pulmonary vascular congestion. Lungs and pleura: No pulmonary consolidation or edema. No pleuraleffusion. No pneumothorax. Bones: No acute abnormality. Postsurgical [...] for stress imaging.The images were reviewed on [employer]. [employer] was utilized for the stress portion of [...] Result Date: 03/12/2024 Version: 1 Study ID: [id number] [facility] Non Invasive Cardiology [address] [place], [place] [id number] Adult Echocardiogram Report Name: CATHERINE NG Study Date: 03/11/2024, 10:23 AM Performed By: Bela Odell : 1970 (MM/DD/YYYY) Age: 53 Years Reason For Study: chest pain, chest pain Gender: Male Patient Location: [address] Ordering Physician: LYNN DECKER: [id number] Electronically signed by: Ruben Matos 03/12/2024, 12:06 [...] stdy to follow. Confirmed by Celine Riggins ([id number]) on 03/12/2024 11:11:35 AM XR CHEST Result [...] 02/22/2024 12:25 PM Created on Workstation ID: [id number] Signed on Workstation ID:[id number] EKG and MONITOR STRIP: was interpreted contemporaneously by , Sridhar Shaffer DO Rhythm: Normal sinus rhythm Rate : 76 [place]: Normal Ectopy: PAC Impression: No acute ST [...] of that follow up, and reasons to re turn to the emergency department explained. DDX I [...] Blood pressure 144/85, pulse 75, temperature 97.3 ??F (36.3 ??C), resp. rate 18, height 1.778 m (5' 10), weight 111.1 kg (245 lb), SpO2 100%.. I have informed them that they may have pre-hypertension or Hypertension based oracio blood pressure reading in the emergency department. I recommended that the patient call their primary care provider listed on their discharge instructions or a physician of their choice this week to arrange follow up for further evaluation of possible pre-hypertension or Hypertension. Please note that some of this chart was generated using [employer] voice recognition software. Although every effort was made to ensure the accuracy of this automated workforce services representative, some errors in workforce services representative may have occurred. ED Course The patient [...] ordered. Risk OTC drugs. Prescription drug management. Sridhar Shaffer III, DO 03/18/24 1431 documented in this encounter Plan of Treatment Scheduled Orders Name Type Priority Associated Diagnoses Orde r Schedule ECG ECG STAT One Time for 1 Occurrences starting 03/18/2024 until 03/18/2024 documented as of this encounter Procedures Procedure Name Priority Date/Time Associated Diagnosis Comments TROPONIN STAT 03/18/2024 1:44 PM EST XR CHEST 1 VIEW PORTABLE STAT 03/18/2024 10:02 AM EST CBC AND ELECTRONIC DIFF STAT 03/18/2024 9:56 AM EST LACTATE, BLOOD STAT 03/18/2024 9:56 AM EST D-DIMER,QUANTITATIVE STAT 03/18/2024 9:56 AM EST CBC, EDIF, PLATELET STAT 03/18/2024 9 :56 AM EST TROPONIN STAT 03/18/2024 9:56 AM EST MAGNESIUM STAT 03/18/2024 9:56 AM EST CK STAT 03/18/2024 9:56 AM EST HEPATIC FUNCTION PANEL STAT 03/18/2024 9:56 AM EST BASIC METABOLIC PANEL STAT 03/18/2024 9:56 AM EST documented in this encounter Results * TROPONIN (03/18/2024 1:44 PM EST) Troponin I 0.010 <0.033 ng/mL 03/18/2024 2:20 PM EST [facility] Comment: 0.034-0.110 INDETERMINATE >0.120 DIAGNOSTIC Blood Venipuncture / Unknown 03/18/2024 1:44 PM EST 03/18/2024 1:54 PM EST Sridhar Shaffer III, DO CHEMISTRY ORDERABL ES Performing Organization Address City/State/[facility] Co de Phone Number [facility], [place] [address] [place] [address] * XR CHEST 1 VIEW PORTABLE (03/18/2024 10:02 AM EST) Anatomical Region Laterality Modality Chest Computed Radiogr aphy 03/18/2024 10:2 1 AM EST Impressions 03/18/2024 10:22 AM EST IMPRESSION: No acute abnormality. Narrative 03/18/2024 10:22 AM EST EXAMINATION TYPE: [facility] XR CHEST 1 VIEW PORTABLE DATE OF EXAM : 03/18/2024 10:02 AM HISTORY: Chest pain COMPARISON: None FINDINGS: Median sternotomy. Normal heart size. Normal mediastinal silhouette. No acute infiltrate. No pleural effusion. No pneumothorax. Small granuloma in the right midlung. Procedure Note Vernon Hendricks MD - 03/18/2024 EXAMINATION TYPE: [facility] XR CHEST 1 VIEW PORTABLE DATE OF EXAM : 03/18/2024 10:02 AM HISTORY: Chest pain COMPARISON: None FINDINGS: Median sternotomy. Normal heart size. Normal mediastinal silhouette. Noacute infiltrate. No pleural effusion. No pneumothorax. Small granuloma in theright midlung. IMPRESSION IMPRESSION: No acute abnormality. Sridhar Georges Edmund III, DO DIAGNOSTIC IMAGING ORDERABLES * CBC [...] LAB[facility] Lymphocyte % Auto 23.8 % 10:05 AM EST [facility] Monocyte % Auto 10.2 % 10:05 AM EST [facility] Eosinophil % Auto 2.4 % 024 10:05 AM EST [facility] Basophil % Auto 0.6 % 4 10:05 AM EST [facility] Segs + Bands Auto 63.0 % 024 10:05 AM EST [facility] Abs Lymph Auto 1.40 1.00 - 4.80 K/uL 03/18/2024 10:05 AM EST [facility] Abs Sharp Auto 0.60 0.20 - 0.90 K/uL 03/18/2024 10:05 AM EST [facility] Abs Eos Auto 0.10 0.00 - 0.20 K/uL 03/18/2024 10:05 AM EST [facility] Abs Baso Auto 0.00 0.00 - 0.20 K/uL 03/18/2024 10:05 AM EST [facility] Blood Venipuncture / Unknown 03/18/2024 9:56 AM EST 03/18/2024 9:59 AM EST Sridhar S Bodkin III, DO HEMATOLOGY ORDERAB LES Performing Organization Address City/[facility]/ZIP Co de Phone Number [facility], [place] [address] [place] [address] * D-DIMER,QUANTITATIVE (03/18/2024 9:56 AM EST) D-Dimer, High Sensitivity 0.38 <0.50 mcg/mL FEU 03/18/2024 10:54 AM EST [facility] Blood Venipuncture / Unknown 03/18/2024 9:56 AM EST 03/18/2024 9:59 AM EST Sridhar Shaffer III DO COAGULATION Performing Organization Address [facility] Co de Phone Number [facility], [place] [address] [place] [address] * LACTATE, BLOOD (03/18/2024 9:56 AM EST) [facility] Lactic Acid 1.2 0.5 - 2.2 mmol/L 03/18/2024 10:25 AM EST [facility] Blood Venipuncture / Unknown 03/18/2024 9:56 AM EST 03/18/2024 9:59 AM EST Sridhar Shaffer III, DO CHEMISTRY ORDERABL ES Performing Organization Address [facility] Co de Phone Number CLINICAL LABORATORY, [place] [address] * (ABNORMAL) CK (03/18/2024 9:56 AM EST) Creatine Kinase 314(H) 30 - 200 U/L 03/18/2024 10:25 AM EST [facility] Blood Venipuncture / Unknown 03/18/2024 9:56 AM EST 03/18/2024 9:59 AM EST Sridhar Shaffer III, DO CHEMISTRY ORDERABL ES Performing Organization Address [facility] Co de Phone Number CLINICAL LABORATORY, [place] [address] * MAGNESIUM (03/18/2024 9:56 AM EST) Magnesium 1.9 1.6 - 2.6 mg/dL 03/18/2024 10:25 AM EST [facility] Blood Venipuncture / Unknown 03/18/2024 9:56 AM EST 03/18/2024 9:59 AM EST Sridhar Shaffer III DO CHEMISTRY ORDERABL ES Performing Organization Address City/[facility]/ZIP Co de Phone Number CLINICAL LABORATORY, [place] [address] * TROPONIN (03/18/2024 9:56 AM EST) Troponin I 0.027 <0.033 ng/mL 03/18/2024 10:25 AM EST [facility] Comment: 0.034-0.110 INDETERMINATE >0.120 DIAGNOSTIC Blood Venipuncture / Unknown 03/18/2024 9:56 AM EST 03/18/2024 9:59 AM EST Sridhar Shaffer III, DO CHEMISTRY ORDERABL ES Performing Organization Address City/State/[facility] Co de Phone Number CLINICAL LABORATORY, [place] [address] * (ABNORMAL) HEPATIC FUNCTION PANEL (03/18/2024 9:56 AM EST) Pathologist [facility] Albumin 3.7 3.5 - 5.2 g/dL 03/18/2024 10:25 AM EST [facility] Bilirubin Direct 0.2 0.0 - 0.5 mg/dL 03/18/2024 10:25 AM EST [facility] Bilirubin, Total 0.3 0.3 - 1.2 mg/dL 03/18/2024 10:25 AM EST [facility] Alkaline Phosphatase 77 40 - 150 U/L 03/18/2024 10:25 AM EST [facility] ALT (SGPT) 48 0 - 55 U/L 03/18/2024 10:25 AM EST [facility] Total Protein 7.0 6.4 - 8.3 g/dL 03/18/2024 10:25 AM EST [facility] AST 44(H) <39 U/L 03/18/2024 10:25 AM EST [facility] Blood Venipuncture / Unknown 03/18/2024 9:56 AM EST 03/18/2024 9:59 AM EST Sridhar Shaffer III, DO CHEMISTRY ORDERABL ES [facility], [place] [address] [place] [address] * (ABNORMAL) BASIC METABOLIC PANEL (03/18/2024 9:56 [...] AM EST 03/18/2024 9:59 AM EST Sridhar Su Edmund III, DO CHEMISTRY ORDERABL ES [facility], [place] [address] [place] [address] documented in this encounter Visit Diagnoses Diagnosis Chest pain, unspecified type- Primary History of coronary artery disease Personal history of other diseases of circulatory system documented in this encounter Administered Medications Inactive Administered Medications - up to 3 most recent administrations Medication Order MAR Action Action Date Dose Rate Site aspirin chewable tablet 324 mg 324 mg, Oral, ONCE, 1 dose, On 03/18/24 at 0945 Given 03/18/2024 10:08 AM EST 324 mg HYDROmorphone (DILAUDID) injection 1 mg 1 mg, Intravenous, ONCE, 1 dose, On 03/18/24 at 1100 Given 03/18/2024 11:09 AM EST 1 mg Morphine (PF) injection 4 mg 4 mg, Intravenous, ONCE, 1 dose, On 03/18/24 at 1015 Given 03/18/2024 10:10 AM EST 4 mg Ondansetron 4mg/2ml (ZOFRAN) injection 4 mg 4 mg, Intravenous, ONCE, 1 dose, On 03/18/24 at 0945 Given 03/18/2024 10:09 AM EST 4 mg VERIFY LINKED PATCH PLACEMENT Other, EVERY 12 HOURS, First dose on 03/18/24 at 2100, Until Discontinued, Confirm continued adhesion of nicotine 21 mg/24hr patch at documented site. documented in this encounter Active and Recently Administered Medications Times are shown in EST. Scheduled Medication Order 03/16/2024 03/17/2024 03/18/2024 aspirin chewable [...] ONCE, 1 dose, On 03/18/24 at 0945 1009 (Given - Provid er: [...] nicotine 21 mg/24hr patch at documented site. documented in this encounter
--- OUTSIDE RECORDS SUMMARY | 2024-04-09 16:19 | XMS_ITS | Clinical Summary ---
Author Organization [facility] Address [address] [place] [address] Care Team Providers Care Dancing Teacher Name Role Phone No, Physician Primary Care Provider Unavailabl e Allergies No known active allergies Medications albuterol 90 mcg/actuation inhaler Inhale 2 (two) puffs every 4 (four) hours as needed for wheezing . Active ARIPiprazole (ABILIFY) 10 MG disintegrating tablet Dissolve 1 (one) tablet (10 mg total) on top of tongue daily . Active aspirin 81 mg chewable tablet Chew and Swallow 1 (one) tablet (81 mg total) daily . Active atorvastatin (LIPITOR) 80 MG tablet Take 1 (one) tablet (80 mg total) by mouth daily . Active carvediloL (COREG) 12.5 MG tablet Take 1 (one) tablet (12.5 mg total) by mouth 2 (two) times a day . Active clopidogreL (PLAVIX) 75 mg tablet Take 1 (one) tablet (75 mg total) by mouth daily . Active ezetimibe (ZETIA) 10 mg tablet Take 1 (one) tablet (10 mg total) by mouth daily . Active hydrocortisone 1 % cream Apply topically 2 (two) times a day . Active losartan (COZAAR) 50 MG tablet Take 1 (one) tablet (50 mg total) by mouth daily . Active QUEtiapine (SEROQUEL) 50 MG tablet Take 1 (one) tablet (50 mg total) by mouth nightly . Active ranolazine (RANEXA) 500 MG 12 hr tablet Take 1 (one) tablet (500 mg total) by mouth 2 (two) times a day . Active spironolactone (ALDACTONE) 25 MG tablet Take 1 (one) tablet (25 mg total) by mouth daily . Active nicotine (NICODERM CQ) 21 mg/[address] 1 (one) patch on the skin daily . Active Active Problems Problem Noted Date Diagnosed Date Mild intermittent asthma with exacerbation 03/24 Primary hypertension 03/24/2024 Chest pain 03/23/2024 Encounters Date Type Department Care Team Description 03/23/2024 7:37 PM EST - 03/24/2024 10:44 AM EST Emergency [facility] [address] [place] [address] Gavin Cain MD Service, [facility] Teaching Kai Nolan MD Dooling, Patrick Cassidy, MD Discharge Disposition: Home 03/23/2024 Travel from Last 3 Months Social History Tobacco Use Types Packs/Day Years Used Date Smoking Tobacco: Every Day Cigarettes Smokeless Tobacco: Never Tobacco Cessation:Ready to Q uit: Not Asked; Counseling Given: Not Answered Alcohol Use Standard Drinks/Week Comments Never 0 (1 standard drink = 0.6 oz pur e alcohol) [facility] Utilities Answer Date Recorded In the past 12 months has e [employer], gas, oil, or water [employer] threatened to shut off services in your [...] any time in the past 12 m [facility], were you homeless or living in a jail (including now)? No 03/24/2024 Sex and Gender Information Value Date Recorded Sex Assigned at Not on file Legal Sex Male 7:37 PM EST Gender Identity Not on file Sexual Orientation Not on file Travel History Travel Start Travel End [place] 03/17/2024 03/23/2024 Last Filed Vital Signs Vital Sign Reading [...] Mass Index 34.35 03/23/2024 11:40 PM EST Plan of Treatment Health Maintenance Due Date Last Done Comments CT Colonography 1968 Colonoscopy 1968 Colorectal Cancer Screening/Monitoring 1968 Fecal DNA 1968 Fecal occult blood test (FOBT,FIT) 1968 PSA Level 1968 Depression Screening/Follow- Up (PHQ-2/9) 1980 HIV Screening 10/04/1983 Hepatitis C Screening 1986 Pneumococcal Vaccine: Ped or At-Risk (1 of 2 - PCV) 10/04/1987 Wellness Visit 07/03/2015 07/02/2014 Flexible sigmoidoscopy 2018 Zoster Vaccines (1 of 2) 2018 Tetanus: Every 10yrs 11/06/2018 11/06/2008 COVID-19 Vaccine ( season) 2023, 12/27/2020 Influenza Vaccine (#1) 2023 7, 02/06/2004, 01/16/2003 Procedures Procedure Name Priority Date/Time Associated Diagnosis Comments TROPONIN Timed 03/24/2024 7:48 AM EST TROPONIN Timed 03/24/2024 4:53 AM EST ECG 12-LEAD STAT 03/24/2024 4:29 AM EST CBC WITH AUTO DIFFERENTIAL STAT 03/24/2024 2:42 AM EST CBC WITH AUTO DIFFERENTIAL Routine 03/24/2024 2:42 AM EST BASIC METABOLIC PANEL Routine 03/24/2024 2:42 AM EST SPUTUM AEROBIC CULTURE Routine 03/24/2024 12:51 AM EST RESPIRATORY PCR PANEL Routine 03/24/2024 12:51 AM EST TROPONIN STAT 03/23/2024 11:19 PM EST POC [facility] ([facility]) - RALS Routine 03/23/2024 8:21 PM EST XR CHEST PA/AP FROYLAN 03/23/2024 8:16 PM EST CBC WITH AUTO DIFFERENTIAL STAT 03/23/2024 7:59 PM EST HEPATIC FUNCTION PANEL STAT 03/23/2024 7:59 PM EST TROPONIN STAT 03/23/2024 7:59 PM EST CBC WITH AUTO DIFFERENTIAL STAT 03/23/2024 7:59 PM EST BASIC METABOLIC PANEL STAT 03/23/2024 7:59 PM EST PINK TOP STAT 03/23/2024 7:59 PM EST GRIFFITH TOP STAT 03/23/2024 7:59 PM EST LIGHT BLUE TOP STAT 03/23/2024 7:59 PM EST LIGHT GREEN TOP STAT 03/23/2024 7:59 PM EST MINT GREEN TOP STAT 03/23/2024 7:59 PM EST LAVENDER TOP STAT 03/23/2024 7:59 PM EST RAINBOW DRAW STAT 03/23/2024 7:59 PM EST ECG 12-LEAD STAT 03/23/2024 7:44 PM EST from Last 3 Months Results * Troponin x 2 (Now and Repeat in 3 hours) (03/24/2024 7:48 AM EST) Only the most recent of4 resultswithin the time period is included. Troponin T 13 <=22 ng/L 03/24/2024 9:01 AM EST [facility] Delta Difference Troponin T 0 < = -/+ 7 change ng/L 03/24/2024 9:01 AM EST [facility] Interp Troponin T Delta Change No biomarker evidence of cardiac injury. 03/24/2024 9:01 AM EST [facility] Blood BLOOD SPECIMEN / Unknown Venipuncture / Unknown 03/24/2024 7:48 AM EST 03/24/2024 8:35 AM EST us Luis Ruggiero MD LAB BLOOD ORDERABLES Final Result [facility] [address] [place] [address] * EKG 12-lead (03/24/2024 4:29 AM EST) Only the most recent of2 resultswithin the time period is included. Ventricular Rate 61 BPM MUSE Atrial Rate 61 BPM MUSE P-R Interval 150 ms MUSE QRS Duration 86 ms MUSE Q-T Interval 452 ms MUSE QTC Calculation (Bezet) 455 ms MUSE P Harrison 46 degrees MUSE R Harrison 1 degrees MUSE T Harrison 60 degrees MUSE 03/24/2024 4:29 AM EST 03/24/2024 10:09 AM EST Narrative MUSE - 03/24/2024 10:09 AM EST Normal sinus rhythm Normal ECG Confirmed by Clay Florez ([id number]) on 03/24/2024 10:09:18 AM us Gavin Cain MD ECG ORDERABLES Fin al Result MUSE * (ABNORMAL) CBC Auto Differential (03/24/2024 2:42 AM EST) Only the most recent of2 resultswithin the time period is included. WBC 8.27 4.50 - 11.00 K/mcL 03/24/2024 4:42 AM [facility] RBC 4.67 4.50 - 5.90 M/mcL 03/24/2024 4:42 AM [facility] Hemoglobin 13.3(L) 13.5 - 17.5 g/dL 03/24/2024 4:42 AM [facility] Hematocrit 39.2(L) 41.0 - 53.0 % 03/24/2024 4:42 AM [facility] MCV 83.9 80.0 - 100.0 fL 03/24/2024 4:42 AM [facility] MCH 28.5 26.0 - 34.0 pg 03/24/2024 4:42 AM [facility] MCHC 33.9 31.0 - 37.0 g/dL 03/24/2024 4:42 AM [facility] Platelets 297 150 - 400 K/mcL 03/24/2024 4:42 AM [facility] RDW - CV 12.6 11.6 - 14.8 % 03/24/2024 4:42 AM [facility] MPV 10.1 9.4 - 12.4 fL 03/24/2024 4:42 AM [facility] Neutrophils 56.8 % 03/24/2024 4:42 AM [facility] Lymphocytes 30.7 % 03/24/2024 4:42 AM [facility] Monocytes 8.8 % 03/24/2024 4:42 AM [facility] Eosinophils 2.5 % 03/24/2024 4:42 AM [facility] Basophils 0.5 % 03/24/2024 4:42 AM [facility] IG Percent 0.70 % 03/24/2024 4:42 AM [facility] Comment:The IG parameter is the percentage of metamyelocytes, myelocytes and promyelocytes. An immature granulocyte count (IG) of 1% or more suggests the possibility of infection, an IG count of 3% is very likely related to an infection. Neutrophils Abs 4.69 1.70 - 7.00 K/mcL 03/24/2024 4:42 AM [facility] Lymphocytes Abs 2.54 0.90 - 4.00 K/mcL 03/24/2024 4:42 AM [facility] Monocytes Abs 0.73 0.30 - 0.90 K/mcL 03/24/2024 4:42 AM [facility] Eosinophils Abs 0.21 0.00 - 0.50 K/mcL 03/24/2024 4:42 AM [facility] Basophils Abs 0.04 0.00 - 0.30 K/mcL 03/24/2024 4:42 AM [facility] IG Absolute 0.06 0.00 - 0.30 K/mcL 03/24/2024 4:42 AM [facility] Nucleated RBC 0.0 % 03/24/2024 4:42 AM [facility] Nucleated RBC Abs 0.00 0.00 - 0.00 K/mcL 03/24/2024 4:42 AM [facility] Blood BLOOD SPECIMEN / Unknown Venipuncture / Unknown 03/24/2024 2:42 AM EST 03/24/2024 3:57 AM EST us Luis Ruggiero MD LAB BLOOD ORDERABLES Final Result [facility] [address] [place] [address] * (ABNORMAL) Basic Metabolic Panel (03/24/2024 2:42 AM EST) Only the most recent of2 resultswithin the time period is included. Sodium 138 135 - 145 mmol/L 03/24/2024 4:52 AM [facility] Potassium 3.6 3.5 - 5.1 mmol/L 03/24/2024 4:52 AM [facility] Comment:Slightly Hemolyzed Chloride 104 98 - 108 mmol/L 03/24/2024 4:52 AM [facility] Bicarbonate 21 21 - 32 mmol/L 03/24/2024 4:52 AM [facility] Anion Gap 17 10 - 20 mmol/L 03/24/2024 4:52 AM [facility] Glucose 127(H) 65 - 99 mg/dL 03/24/2024 4:52 AM [facility] BUN 12 8 - 25 mg/dL 03/24/2024 4:52 AM [facility] Creatinine 1.10 0.50 - 1.30 mg/dL 03/24/2024 4:52 AM [facility] eGFR 79 >=60 mL/min/1.7 3 m2 03/24/2024 4:52 AM [facility] Comment:Estimated GFR was ca lculated using the 2020 CKD-EPI creatinine equation. BUN/Creatinine Ratio 10.9 10.0 - 20.0 03/24/2024 4:52 AM [facility] Calcium 8.6 8.4 - 10.2 mg/dL 03/24/2024 4:52 AM [facility] Blood BLOOD SPECIMEN / Unknown Venipuncture / Unknown 03/24/2024 2:42 AM EST 03/24/2024 3:53 AM EST [facility] - 03/24/2024 4:52 AM EST [facility] Services has implemented the eGFR calculation approach that does not have a coefficient for race that conforms to the NKF-ASN Task Force Recommendations. us Luis Ruggiero MD LAB BLOOD ORDERABLES Final Result [facility] [address] [place] [address] * Respiratory PCR Panel (03/24/2024 12:51 AM EST) Pathologist [facility] Influenza A Not Detected Not Detected 03/24/2024 3:20 AM [facility] Influenza B Not Detected Not Detected 03/24/2024 3:20 AM [facility] Parainfluenza Virus 1 Not Detected Not Detected 03/24/2024 3:20 AM [facility] Parainfluenza Virus 2 Not Detected Not Detected 03/24/2024 3:20 AM [facility] Parainfluenza Virus 3 Not Detected Not Detected 03/24/2024 3:20 AM [facility] Parainfluenza Virus 4 Not Detected Not Detected 03/24/2024 3:20 AM [facility] Respiratory Syncytial Virus Not Detected Not Detected 03/24/2024 3:20 AM [facility] Human Metapneumovirus Not Detected Not Detected 03/24/2024 3:20 AM [facility] Human Rhinovirus/Enterov irus Not Detected Not Detected 03/24/2024 3:20 AM [facility] Adenovirus Not Detected Not Detected 03/24/2024 3:20 AM [facility] Coronavirus 229E Not Detected Not Detected 03/24/2024 3:20 AM [facility] Coronavirus HKU1 Not Detected Not Detected 03/24/2024 3:20 AM [facility] Coronavirus NL63 Not Detected Not Detected 03/24/2024 3:20 AM [facility] Coronavirus OC43 Not Detected Not Detected 03/24/2024 3:20 AM [facility] Bordetella parapertussis Not Detected Not Detected 03/24/2024 3:20 AM [facility] Bordetella pertussis Not Detected Not Detected 03/24/2024 3:20 AM [facility] Mycoplasma pneumoniae Not Detected Not Detected 03/24/2024 3:20 AM [facility] Chlamydia pneumoniae Not Detected Not Detected 03/24/2024 3:20 AM [facility] SARS-CoV-2 Not Detected Not Detected 03/24/2024 3:20 AM [facility] Swab NASOPHARYNGEAL SWAB / Unknown 03/24/2024 12:51 AM EST 03/24/2024 1:36 AM EST us Luis Ruggiero MD MICROBIOLOGY - GENER AL ORDERABLES Final Result Performing Organization Address City/[facility]/ZIP Co de Phone Number [facility] [address] [place] [address] * Sputum Aerobic Culture (03/24/2024 12:51 AM EST) Culture Normal Ariadna after 48 hrs 03/26/2024 11:45 AM [facility] Gram Stain Result No Epithelial Cells Seen 03/26/2024 11:45 AM [facility] Gram Stain Result Many WBC 03/26/2024 11:45 AM [facility] Gram Stain Result Many Mixed Ariadna 03/26/2024 11:45 AM [facility] Sputum COUGHED SPUTUM SPECIMEN / Unknown 03/24/2024 12:51 AM EST 03/24/2024 1:37 AM EST us Luis Ruggiero MD MICROBIOLOGY - GENER AL ORDERABLES Final Result [facility] [address] [place] [id number] * (ABNORMAL) POC Venous Blood Gases with Full Panel (03/23/2024 8:21 PM EST) pH, Venous 7.44(H) 7.32 - 7.42 03/23/2024 8:27 PM [facility] pCO2, Aleksandr 36.7(L) 41.0 - 51.0 mm Hg 03/23/2024 8:27 PM [facility] pO2, Aleksandr 44(H) 25 - 40 mm Hg 03/23/2024 8:27 PM [facility] Base Excess, Aleksandr 0.7 -2.0 - 2.0 03/23/2024 8:27 PM [facility] O2 Sat, Aleksandr 81.4(H) 40.0 - 70.0 % 03/23/2024 8:27 PM [facility] Hemoglobin, Calculated 15.5 13.5 - 17.5 g/dL 03/23/2024 8:27 PM [facility] Hematocrit 46 41 - 53 % 03/23/2024 8:27 PM [facility] Glucose 102(H) 65 - 99 mg/dL 03/23/2024 8:27 PM [facility] BUN 10 8 - 25 mg/dL 03/23/2024 8:27 PM [facility] Creatinine 1.08 0.50 - 1.30 mg/dL 03/23/2024 8:27 PM [facility] GFR 81 >=60 mL/min/1.7 3 m2 03/23/2024 8:27 PM [facility] Comment:Estimated GFR was ca lculated using the 2020 CKD-EPI creatinine equation. Sodium 142 135 - 145 mmol/L 03/23/2024 8:27 PM [facility] Potassium 3.8 3.5 - 5.1 mmol/L 03/23/2024 8:27 PM [facility] Chloride 105 98 - 108 mmol/L 03/23/2024 8:27 PM [facility] TCO2 24 21 - 32 mmol/L 03/23/2024 8:27 PM [facility] Lactate 1.9 0.6 - 2.0 mmol/L 03/23/2024 8:27 PM [facility] Ionized Calcium 4.6 4.5 - 5.3 mg/dL 03/23/2024 8:27 PM EST [facility] Blood BLOOD SPECIMEN / Unknown 03/23/2024 8:21 PM EST 03/23/2024 8:23 PM EST Narrative [facility] - 03/23/2024 8:27 PM EST [facility] has implemented the eGFR calculation approach that does not have a coefficient for race that conforms to the NKF-ASN Task Force Recommendations. [facility] POCT ORDERABLES - DE VICE Final Result [facility] [address] [place] [address] * XR Chest 1 View (03/23/2024 8:16 [...] process in the chest. Workstation ID: [id number] Gavin Cain MD IMG DIAGNOSTIC IMAG ING ORDERABLES Final Result * Gold Top (03/23/2024 7:59 PM EST) Extra Tube Hold for add-ons. 03/23/2024 11:59 PM EST [facility] Comment:Auto resulted. Blood BLOOD SPECIMEN / Unknown Venipuncture / Unknown 03/23/2024 7:59 PM EST 03/23/2024 8:06 PM EST Result [facility] Gavin Cain MD LAB BLOOD ORDERABLE S Final Result Performing Organization Address [facility]/ZIP Co de Phone Number [facility] [address] [place] [id number] * [place] Green Top (03/23/2024 7:59 PM EST) Extra Tube Hold for add-ons. 03/23/2024 9:58 PM EST [facility] Comment:Auto resulted. Blood BLOOD SPECIMEN / Unknown Venipuncture / Unknown 03/23/2024 7:59 PM EST 03/23/2024 8:06 PM EST Gavin Cain MD LAB BLOOD ORDERABLE S Final Result Performing Organization Address City/[facility]/ZIP Co de Phone Number [facility] [address] [place], [place] [id number] * Griffith Top (03/23/2024 7:59 PM EST) Extra Tube Hold for add-ons. 03/23/2024 9:58 PM EST [facility] Comment:Auto resulted. Blood BLOOD SPECIMEN / Unknown Venipuncture / Unknown 03/23/2024 7:59 PM EST 03/23/2024 8:06 PM EST us Gavin Cain MD LAB BLOOD ORDERABLE S Final Result [facility] [address] [place], [place] [id number] * [place] Top (03/23/2024 7:59 PM EST) Blood BLOOD SPECIMEN / Unknown Venipuncture / Unknown 03/23/2024 7:59 PM EST 03/23/2024 8:06 PM EST us Gavin Cain MD LAB BLOOD ORDERABLE S Final Result [facility] [address] [place], [place] [id number] * Lavender Top (03/23/2024 7:59 PM EST) Extra Tube Hold for add-ons. 03/23/2024 9:58 PM EST [facility] Comment:Auto resulted. Blood BLOOD SPECIMEN / Unknown Venipuncture / Unknown 03/23/2024 7:59 PM EST 03/23/2024 8:06 PM EST us Gavin Cain MD LAB BLOOD ORDERABLE S Final Result [facility] [address] [place], [place] [id number] * Light Blue Top (03/23/2024 7:59 PM EST) Extra Tube Hold for add-ons. 03/23/2024 9:58 PM [facility] Comment:Auto resulted. Blood BLOOD SPECIMEN / Unknown Venipuncture / Unknown 03/23/2024 7:59 PM EST 03/23/2024 8:06 PM EST us Gavin Cain MD LAB BLOOD ORDERABLE S Final Result Performing Organization Address City/[facility]/ZIP Co de Phone Number [facility] [address] [place] [phone] * Liver Function Tests (LFTs) (03/23/2024 7:59 PM EST) Pathologist [facility] Total Protein 7.0 6.0 - 8.0 g/dL 03/23/2024 8:57 PM [facility] Albumin 3.6 3.2 - 5.2 g/dL 03/23/2024 8:57 PM [facility] Total Bilirubin 0.3 0.0 - 1.3 mg/dL 03/23/2024 8:57 PM [facility] Bilirubin, Direct <0.2 0.0 - 0.4 mg/dL 03/23/2024 8:57 PM [facility] Alkaline Phosphatase 87 40 - 150 U/L 03/23/2024 8:57 PM [facility] AST 26 0-50 U/L U/L 03/23/2024 8:57 PM [facility] ALT 36 0-50 U/L U/L 03/23/2024 8:57 PM [facility] Blood BLOOD SPECIMEN / Unknown Venipuncture / Unknown 03/23/2024 7:59 PM EST 03/23/2024 8:06 PM EST us Gavin Cain MD LAB BLOOD ORDERABLE S Final Result Performing Organization Address City/[facility]/ZIP Co de Phone Number [facility] [address] [place] [phone] from Last 3 Months Insurance OUT OF STATE MEDICAID Advance Directives For more information, please contact: [phone] * Full Code (Latest Code Status on File) Date Activated Date Inactivated Comments 03/23/2024 10:52 PM 03/24/2024 12:44 PM Care Teams Dancing Teacher Relationship Specialty Start Date End Date No, Physician [facility] PCP - General 03/23/24
--- OUTSIDE RECORDS SUMMARY | 2024-04-09 16:19 | XMS_ITS | Encounter Summary ---
Author Organization [facility] Address [address] [place] [address] Care Team Providers Care Cotton Broker Name Role Phone No, Physician Primary Care Provider Unavailabl e Encounter Details Date Type Department Care Team (Latest Contact Info) Description 03/23/2024 Travel Social History Tobacco Use Types Packs/Day Years Used Date Smoking Tobacco: Every Day Cigarettes Smokeless Tobacco: Never Alcohol Use Standard Drinks/Week Comments Never 0 (1 standard drink = 0.6 oz pur e alcohol) [facility] Utilities Answer Date Recorded In the past 12 months has e Care Team [employer], gas, oil, or water [employer] threatened to shut off services in your [...] any time in the past 12 m [facility], were you homeless or living in a long-term (including now)? No 03/24/2024 Sex and Gender Information Value Date Recorded Sex Assigned at Not on file Legal Sex Male 7:37 PM EST Gender Identity Not on file Sexual Orientation Not on file Travel History Travel Start Travel End [place] 03/17/2024 03/23/2024 documented as of this encounter Plan of Treatment Not on file documented as of this encounter Visit Diagnoses Not on filedocumented in this encounter Care Teams Cotton Broker Relationship Specialty Start Date End Date No, Physician [facility] PCP - General 03/23/24 documented as of this encounter
--- OUTSIDE RECORDS SUMMARY | 2024-04-09 16:19 | XMS_ITS | Encounter Summary ---
Author Organization [facility] Address [address] [place] [address] Care Team Providers Care Hosiery Operator Name Role Phone Unavailable Primary Care Provider Unavailabl e Encounter Details Date Type Department Care Team (Latest Contact Info) Description 03/18/2024 Travel Social History Tobacco Use Types Packs/Day Years Used Date Smoking Tobacco: Never Assessed Sex and Gender Information Value Date Recorded Sex Assigned at Not on file Gender Identity Not on file Sexual Orientation Not on file documented as of this encounter Plan of Treatment Not on file documented as of this encounter Visit Diagnoses Not on filedocumented in this encounter
[2024-04-09] MEDS: NITROGLYCERIN 0.4 MG TAB.SUBL SUBLINGUAL (16:21)
[2024-04-09 16:28] LABS: Troponin, Point-of-Care* 0.01 ng/ml (0.01-0.04)
[2024-04-09 16:42] LABS: Albumin* 4.1 g/dL (3.3-5.0); Basophils Absolute Auto 0.03 K/uL (0.00-0.30); Basophils Percent Auto 0.3 % (0.0-3.0); Chloride* 109 mmol/L (96-114); Eosinophils Absolute Auto 0.28 K/uL (0.00-0.50); Eosinophils Percent Auto 3.1 % (0.0-7.0); Hemoglobin* 14.3 gm/dL (13.5-17.5); Immature Granulocytes Abs Auto 0.05 K/uL (0.00-0.30); Immature Granulocytes Pct Auto 0.6 %; Lymphocytes Absolute Auto 2.36 K/uL (0.90-2.90); Lymphocytes Percent Auto 26.1 % (20-44); Mean Corpuscular HGB Conc 33 gm/dL (32-36); Mean Corpuscular Hemoglobin 28 pg (26-34); Mean Corpuscular Volume 85 fL (80-100); Monocytes Percent Auto 9.1 % (0.0-11.0); Neutrophils Percent Auto 60.8 % (42.0-72.0); Platelet Count* 269 K/uL (140-440); RDW Coefficient of Variation % 13.1 % (11.5-15.5); Red Blood Count 5.18 m/uL (4.30-5.90); White Blood Count* 9.04 K/uL (4.50-11.00)
[2024-04-09 16:43] LABS: Potassium* 3.5 mmol/L (3.6-5.1); Sodium* 141 mmol/L (135-149)
[2024-04-09 16:45] LABS: Alkaline Phosphatase* 85 U/L (40-150); Anion Gap 5 mEq/L (7-15); Aspartate Amino Transferase* 24 U/L (12-35); Bilirubin Total* 0.3 mg/dL (0.1-1.5); Blood Urea Nitrogen* 14 mg/dL (7-30); Carbon Dioxide* 27 mmol/L (20-32); Creatinine* 0.7 mg/dL (0.5-1.5); Est. Creatinine Clearance* 123.12; Estimated Glomerular Filt Rate 109 ml/min; Total Protein* 7.4 g/dL (6.0-8.3)
[2024-04-09 16:46] LABS: Alanine Aminotransferase* 38 U/L (4-50); Calcium* 9.1 mg/dL (8.4-10.6); Glucose* 91 mg/dL (60-115)
[2024-04-09 17:02] LABS: Slide Review Reflex No
[2024-04-09 17:06] LABS: C Reactive Protein* 0.7 mg/dL (0.5-1.0)
--- NOTE | 2024-04-09 17:08 | CRLHL7_ITS ---
For Patients: As a result of the Century Cures Act, medical imaging exams and procedure reports are released immediately into your electronic medical record. You may view this report before your referring provider. If you have questions, please contact your health care provider. INDICATION: Left sided chest pain. Hx of heart attacks (x3) COMPARISON: CT Chest PE protocol with 95mL Isovue 370 IV contrast TECHNIQUE: CT volumetric acquisition was performed of the thorax during intravenous infusion of 95mL Isovue 370 nonionic intravenous contrast. Please note that all CT scans at this facility use dose modulation, iterative reconstruction, and/or weight-based dosing when appropriate to reduce radiation dose to as low as reasonably achievable. FINDINGS: Upper limits of normal intrathoracic lymph nodes are present. No adrenal nodule. No splenomegaly. Vascular calcifications. No calcified gallstones. No pulmonary embolism. 7 millimeter nodule adjacent to the right minor fissure, . Postop changes CABG. Calcified nodule incidentally noted within the right upper lobe. Additional noncalcified nodule right lower lobe measures 4.2 millimeters, . Calcified right hilar lymph nodes representing sequela of granulomatous disease. IMPRESSION: No evidence of pulmonary thromboembolism. Right-sided pulmonary nodules measuring up to [address] chest follow-up in 6 months recommended Please note that all CT scans at this facility use dose modulation, iterative reconstruction, and/or weight-based dosing when appropriate to reduce radiation dose to as low as reasonably achievable. Dictated by Ernesto Goyal MD @ 04/09/2024 6:02:15 PM (Electronically Signed)
[2024-04-09] MEDS: ACETAMINOPHEN 500 MG TABLET 1000 MG PO (17:25)
[2024-04-09] MEDS: METOPROLOL TARTRATE 1 MG/ML inj 2.5 MG IVP (17:25)
[2024-04-09 18:09] LABS: Appearance Urine Clear (Clear); Bilirubin Urine Negative (Negative); Blood Urine Negative (Negative); Color Urine Yellow (Yellow); Glucose Urine Negative (Negative); Ketones Urine Negative (Negative); Leukocyte Esterase Urine Negative (Negative); Nitrite Urine Negative (Negative); Protein Urine Negative (Negative); Specific Gravity Urine >= 1.030 (1.000-1.030); Urobilinogen Urine 0.2 (0.2-1.0); pH Urine 5.5 (5.0-8.5)
[2024-04-09 18:18] LABS: Amphetamine Screen Urine Negative (Negative); Cannabinoid Screen Urine Negative (Negative); Cocaine Screen Urine Negative (Negative); Methamphetamines Screen Urine Negative (Negative); Opiate Screen Urine Negative (Negative); Phencyclidine Screen Urine Negative (Negative)
[2024-04-09 18:19] LABS: Barbiturate Screen Urine Negative (Negative); Benzodiazepines Screen Urine Negative (Negative); Methadone Screen Urine Negative (Negative); Oxycodone Screen Urine Negative (Negative); Tricyclic Antidepressant Urine POSITIVE (Negative)
[2024-04-09 18:26] LABS: RBC Urine 0-2 (0-2); WBC Urine 0-2 (0-5)
[2024-04-09] MEDS: carvediloL 25 MG TABLET 12.5 MG PO (21:20)
[2024-04-09] MEDS: AMLODIPINE 5 MG TABLET PO (21:42)
[2024-04-09] MEDS: ASPIRIN 81 MG TABLET EC 324 MG PO (22:45)
--- NOTE | 2024-04-09 22:56 | ED.NURSE ---
[facility] paperwork signed by patient and witnessed by this RN.
--- NOTE | 2024-04-18 13:36 | ED_ITS ---
ED Chart Note Chart Note Details Date: 04/18/24 Details: April 18, 2024 Dear Mr. Garnett, I hope this letter finds you feeling well. It was a pleasure to meet you here in the emergency room on April 09 at the [facility]. I wanted to let you know that the radiologist noted the following: Right-sided pulmonary nodules measuring up to [address] chest follow-up in 6 months recommended Please bring this note to your primary clinic or physician to have this scheduled. Best wishes and safe driving. Catherine Marquis MD ED Physician [facility]
--- NOTE | 2024-05-31 14:18 | ED.NURSE ---
Contacted patient via phone regarding returned letter from Dr. Marquis. Per Dr. Marquis's permission, gave patient radiologist reading of xray and instructed patient to follow up with his primary care for a recheck. Patient requesting to resend the letter so that he can show his doctor. Patient verbalizes understanding of follow up with his primary physician.
== END 2024-04-09 22:57 | disposition left against medical advice (07) ==
PROVIDERS: Emergency Provider Family Medicine
DX: R07.9 Chest pain, unspecified (principal); I10 Essential (primary) hypertension; R06.02 Shortness of breath; R11.0 Nausea; R91.1 Solitary pulmonary nodule; Z53.29 Procedure and treatment not carried out because of patient's decision for other reasons; Z79.899 Other long term (current) drug therapy
CPT/HCPCS: 36415; 71045; 71275; 80053; 80306; 81001; 84484; 85025; 86140; 93005; 94761; 96374; 99284; 99285; A9270; J2404; Q9967